=== PATIENT | female | born 1955 | race Caucasian/White ===

== ENCOUNTER → 2016-05-29 | Day surgery (SDC) | payer OTHER ==
[~2016-05-29] VITALS: Ht 160 cm; Wt 84.4 kg
[~2016-05-29] MED LIST: ALBU17IN INH; ALBU83IN INH; ALBUTEROL SULFATE 2.5 MG/0.5 ML INH NEB SOLN As Ordered ONE; CIPR500T3 PO; CLON0.5T PO; CLON1TAB PO; COMBAER6 INH; CONRAY-60 60% 50ML VIAL (Q9961) XX ONE; CYCL10TA PO; CYCL5TA PO; DICL13PA TD; DRIS50002 PO; HYDR-3713 PO; HYDR1SOL PO; INVE3TAB PO; IPRASOL4 IN; LEVO125T3 PO; LIDO4CRE2 EX; LIDOCAINE 2% INJ 100 MG/5 ML SDV (FOR ANES.) As Ordered ONE; LR 1,000 ML IV SCH; METOCLOPRAMIDE INJ 10MG/2ML VIAL (J2765) IV PRN; MIDAZOLAM INJ 2 MG/2 ML VIAL (J2250) As Ordered ONE; MIRT30TA3 PO; NORCOTAB PO; ONDANSETRON 4MG/2ML VIAL (J2405) As Ordered ONE; ONDANSETRON 4MG/2ML VIAL (J2405) IV PRN; PANT40TA2 PO; PERC5TAB6 PO; PERCOCET 5MG/325MG TAB As Ordered ONE; PERCOCET PO; PRIL40CA PO; PROPOFOL 200 MG/20 ML VIAL As Ordered ONE; SERO200T PO; TOPA200T6 PO; VITA100037 PO; ZANA4TAB PO; dexameTHASONE 4 MG/ML 1ML VIAL (J1100) As Ordered ONE; ePHEDrine SULFATE 25 MG/5 ML(5MG/ML) SYRINGE As Ordered ONE; fentaNYL 100 MCG/2 ML INJECTION (J3010) As Ordered ONE; fentaNYL 100 MCG/2 ML INJECTION (J3010) IV PRN; fentaNYL 250 MCG/5 ML INJECTION (J3010) As Ordered ONE
--- NOTE | 2016-05-29 12:30 | REP ---
RIGHT RETROGRADE PYELOGRAM: 05/29/2016 INDICATION: Renal stone. COMPARISON: CT abdomen and pelvis 02/22/2016 FINDINGS: There is a right ureteral stent which appears in satisfactory position , yet the inferior aspect of the stent is partially excluded from view. There are no visualized filling defects seen along the stent through the mid pelvic level. Theinferior pelvic area is omitted from view. 37 second C-arm fluoroscopy time was provided to Dr. Paredes of the Department of Urology who performed the study. One image is recorded and is available for review on the PACS. PHILLIP
[2016-05-29] MEDS: PERCOCET 5MG/325MG TAB PO PRN ×2 (12:40→13:03)
[2016-05-29 13:51] VITALS: BP 132/72
--- NOTE | 2016-05-30 08:47 | RO ---
DATE OF PROCEDURE: 05/29/2016 PREOPERATIVE DIAGNOSIS: Right kidney stone. POSTOPERATIVE DIAGNOSIS: Right kidney stone. SURGERY PERFORMED: Cystoscopy, plus right retrograde pyelogram, plus right ureteroscopy, plus laser stone lithotripsy, plus basket extraction of stones, plus right JJ-stent placement #6 Tajik Coleman Cook. SURGEON: Dr. Manuel Paredes ADULT LITERACY TEACHER: None. ANESTHESIA: General. COMPLICATIONS: None. ESTIMATED BLOOD LOSS: N/A. HISTORY OF PRESENT ILLNESS: This is a 60-year-old female patient with a right kidney stone 9 mm in diameter in the lower pole of the kidney having pain. For this reason, the patient has consented for a cystoscopy, plus possible right retrograde pyelogram, plus possible right ureteroscopy, plus laser stone lithotripsy, plus basket extraction of stones, plus right JJ-stent placement. The patient has signed the consent form. PROCEDURE DESCRIPTION: In a patient under general anesthesia in supine modified low lithotomy position after prepping and draping the area of concern, which included the entire genitalia and abdomen, we started by introducing a cystoscope, #21 Tajik with a 30 degree lens. The bladder was intact. There were no stones, no foreign objects, no tumors in the bladder. Both ureteral orifices were seen excreting clear urine. We then catheterized the right ureteral orifice with a 5 Tajik Pollack catheter. Then, the retrograde pyelogram. There was a 9 mm stone in the lower pole of the kidney. We then passed a Sensor guidewire up to the kidney and removed the Pollack catheter out. We then proceeded to actively remove the cystoscope and place a parallel ureteral access sheath 12 Tajik x 38 cm in length up to the proximal ureter. We then removed the obturator from inside the ureteral access sheath. We then passed a flexible ureteroscope into the ureteral access sheath up to the kidney. We did a formal nephroscopy with the flexible ureteroscope - upper pole, mid pole and lower pole. The lower pole of the kidney had a 9 mm stone. With the 200 micron probe, we actively laser lithotripsied the stone into multiple pieces. We then grabbed the basket and we then basketed the stones and removed it out of the body of the patient. We then proceeded to actively do a formal nephroscopy. There were no stones remaining in the kidney. We then removed the ureteroscope and ureteral access sheath and did a formal retrograde ureteroscopy. There were no stones in the ureter. At that moment in time, we placed the cystoscope back in and following the safety guidewire we pushed in a right JJ stent #6 Tajik Coleman Cook. Once in good position, we took the guidewire out. We could see the curl in the kidney and the curl in the bladder. We shot x-rays. We emptied the bladder and took the cystoscope out. PLAN: The patient will go home with antibiotic and pain medication. The stones were sent for biochemical analysis. The patient will followup at [facility] in two weeks. There were no complications during surgery.
== END | disposition home or self-care (01) ==
LOC: M SDC 08:52
PROVIDERS: ATTEND Urology
DX: N20.0 Calculus of kidney (principal); E03.9 Hypothyroidism, unspecified; R29.898 Other symptoms and signs involving the musculoskeletal system; K21.9 Gastro-esophageal reflux disease without esophagitis; G89.29 Other chronic pain; M54.5 Low back pain; M79.605 Pain in left leg; M53.3 Sacrococcygeal disorders, not elsewhere classified; F25.9 Schizoaffective disorder, unspecified; M12.9 Arthropathy, unspecified; J44.9 Chronic obstructive pulmonary disease, unspecified; Z88.1 Allergy status to other antibiotic agents; Z88.6 Allergy status to analgesic agent; Z88.8 Allergy status to other drugs, medicaments and biological substances; Z79.899 Other long term (current) drug therapy; Z90.710 Acquired absence of both cervix and uterus; Z96.1 Presence of intraocular lens; Z92.0 Personal history of contraception
CPT/HCPCS: 52352; 52356; 74420; 82360; 88300; C1726; C2617; J0690; J1100; J2250; J2405; J3010; Q9961

== ENCOUNTER 2016-06-03 19:05 | Emergency (ER) | payer OTHER ==
[~2016-06-03 19:05] MED LIST changes: -ALBUTEROL SULFATE 2.5 MG/0.5 ML INH NEB SOLN As Ordered ONE; -CONRAY-60 60% 50ML VIAL (Q9961) XX ONE; -LIDOCAINE 2% INJ 100 MG/5 ML SDV (FOR ANES.) As Ordered ONE; -LR 1,000 ML IV SCH; -METOCLOPRAMIDE INJ 10MG/2ML VIAL (J2765) IV PRN; -MIDAZOLAM INJ 2 MG/2 ML VIAL (J2250) As Ordered ONE; -ONDANSETRON 4MG/2ML VIAL (J2405) As Ordered ONE; -ONDANSETRON 4MG/2ML VIAL (J2405) IV PRN; -PERCOCET 5MG/325MG TAB As Ordered ONE; -PROPOFOL 200 MG/20 ML VIAL As Ordered ONE; -dexameTHASONE 4 MG/ML 1ML VIAL (J1100) As Ordered ONE; -ePHEDrine SULFATE 25 MG/5 ML(5MG/ML) SYRINGE As Ordered ONE; -fentaNYL 100 MCG/2 ML INJECTION (J3010) As Ordered ONE; -fentaNYL 100 MCG/2 ML INJECTION (J3010) IV PRN; -fentaNYL 250 MCG/5 ML INJECTION (J3010) As Ordered ONE
[2016-06-03] MEDS ORDERED: ONDANSETRON 4MG/2ML VIAL (J2405) As Ordered ONE (20:36)
[2016-06-03] MEDS ORDERED: MORPHINE 4 MG/ML 1ML SYRINGE As Ordered ONE (20:36)
[2016-06-03 21:02] LABS: BASO # 0.1 K/mm3 (0.0-0.2); BASO % 1.3 % (0.0-1.0); EOS # 0.2 K/mm3 (0.0-0.50); EOS % 1.5 % (0.0-3.0); LARGE UNSTAINED CELL # 0.2 K/mm3 (0.0-0.4); LARGE UNSTAINED CELL % 1.7 % (0.0-4.0); LYMPH % 10.5 % (24.0-44.0); MEAN CORPUSCULAR HEMOGLOBIN 30.2 pg (27.0-33.0); MEAN CORPUSCULAR VOLUME 94.6 fl (80.0-96.0); PLATELET COUNT, AUTOMATED 191 k/mm3 (150-450); RED CELL DISTRIBUTION WIDTH 13.8 % (11.5-14.5); WHITE BLOOD COUNT 10.1 K/mm3 (4.0-10.0)
[2016-06-03 21:03] LABS: LYMPH # 1.1 K/mm3 (1.5-4.5); MONO # 0.5 K/mm3 (0.0-0.8); NEUTROPHILS # 8.1 K/mm3 (1.8-7.7)
[2016-06-03 21:16] LABS: ALBUMIN 3.6 GM/DL (3.2-5.2); ALBUMIN/GLOBULIN RATIO 0.86 (1.00-1.93); ALKALINE PHOSPHATASE 135 U/L (45-117); ALT/SGPT 69 U/L (12-78); ANION GAP 9 MEQ/L (8-16); AST/SGOT 45 U/L (15-37); BILIRUBIN,DIRECT 0.1 MG/DL (0.0-0.2); BILIRUBIN,TOTAL 0.3 MG/DL (0.2-1.0); BLOOD UREA NITROGEN 10 MG/DL (7-18); CALCIUM LEVEL 8.4 MG/DL (8.5-10.1); CARBON DIOXIDE LEVEL 21 MEQ/L (21-32); CHLORIDE LEVEL 109 MEQ/L (98-107); GLOMERULAR FILTRATION RATE 44.8 (>51); GLUCOSE, FASTING 112 MG/DL (70-105); POTASSIUM SERUM 3.4 MEQ/L (3.5-5.1); SODIUM LEVEL 139 MEQ/L (136-145); TOTAL PROTEIN 7.8 GM/DL (6.4-8.2)
--- NOTE | 2016-06-03 21:40 | REPUSA ---
CT of the abdomen and pelvis without contrast Clinical statement: Pain. Technique: Multiple axial CT images were obtained from the base of the lungs to the floor of the pelv is utilizing 5 mm axial slices without administration of contrast. Coronal and sagittal reconstructio ns were also obtained. Comparison: 02/22/2016. Findings: Chest: The visualized lung bases are clear. Abdomen: The kidneys are normal in size bilaterally. There is moderate right-sided hydronephrosis and hydroureter with perineprhic and periureteral inflammatory changes. A tiny 1 mm stone is seen in the distal right ureter. The 1 cm stone seen in the right renal collecting system on the prior study is no longer visualized. The left renal collecting system is unremarkable. Diffuse low attenuation of th e liver is appreciated. The patient is status post cholecystectomy. The spleen, pancreas, and adrenal glands are unremarkable. The aorta demonstrates normal caliber and contour. There is no abdominal ly mphadenopathy or ascites. Pelvis: The bowel is unremarkable, with no obstructive or inflammatory changes. The urinary bladder i s within normal limits. There is no pelvic lymphadenopathy or ascites. The other pelvic structures ap pear unremarkable. Bones: There are no suspicious osseous abnormalities seen. Impression: 1. New moderate right-sided hydronephrosis and hydroureter with surrounding inflammatory stranding. A 1 mm stone is seen in the distal right ureter. The 1 cm kidney stone seen in the right renal collect ing system on the prior study is no longer visualized in likely has passed. 2. Diffuse fatty infiltration of the liver. 3. No obstructive or inflammatory bowel changes.
[2016-06-03] MEDS ORDERED: NORCO 5/325MG TABLET (BULK) As Ordered ONE (22:59)
--- NOTE | 2016-06-03 23:14 | EDDOCDS ---
Nurse's Notes [facility] Name: Gabbi Guzman Age: 60 yrs Sex: Female : 1955 Arrival Date: 06/03/2016 Time: 19:05 Bed 12 Private MD: Lizzy Rodney C Diagnosis: Unspecified renal colic-s/p stent removal;Hydronephrosis with renal and ureteral calculous obstruction-1mm calc, distal right ureter Presentation: 06/03 19:27 Presenting complaint: EMS states: Pt had stent placed right kidney and had a js15 simultaneous lithotripsy; stent was removed today and pt has had abdominal/kidney pain and vomiting since. Adult Sepsis Screening: The patient does not have new or worsening altered mentation. Patient's respiratory rate is less than 22. Systolic blood pressure is greater than 100. Patient has a qSOFA score of 0- Negative Sepsis Screen. Suicide/Homicide risk assessment- the patient denies having any suicidal and/or homicidal ideations and does not present with any other emotional, behavioral or mental health complaints. Status: Patient is not a service observer chief or dependent. Transition of care: patient was not received from another setting of care. 19:27 Acuity: CHICO Level 3 js15 19:27 Method Of Arrival: Ambulance js15 Triage Assessment: 19:33 General: Appears uncomfortable, Behavior is cooperative. Pain: Location: right low back js15 and right lower quadrant Pain currently is 10 out of 10 on a pain scale. HIV screening NA for this visit Offered previously. The patient is triaged at the bedside. See Assessment in Nurses Notes section of ED record. Neurological: Level of Consciousness is awake, alert, obeys commands, Oriented to person, place, time. Respiratory: Airway is patent Respiratory effort is even, unlabored, Respiratory pattern is regular, symmetrical. GI: Reports nausea, vomiting, Pain is 10 out of 10 on a pain scale. Derm: Skin is pink, warm & dry. Historical: - Allergies: Motrin (Upset stomach); Risperdal (Swelling); TETRACYCLINES (Rash); Tramadol HCl; - Home Meds: 1. Topamax 200 mg Oral tab 1 tab nightly 2. Remeron 30 mg Oral tab 1 tab once daily 3. levothyroxine 125 mcg Oral tab 1 tab once daily 4. Klonopin 1 mg Oral tab 1 tab 2 times per day 5. Ventolin Rotahaler/Rotacaps Inhl 6. Protonix 40 mg Oral TbEC 1 tab once daily 7. Vitamin D Oral 1,000 unit daily 8. Seroquel 400 mg Oral tab 1 tab nightly 9. Combivent Inhl four times a day 10. Percocet 5-325 mg Oral tab 2 tabs every 4 hours 11. Flexeril 10 mg oral tab 3 times per day - PMHx: Degenerative disc disease; Anxiety; Depression; GERD; Hypothyroidism; muscle spasms; Schizophrenia; Sciatica; Kidney stones; - PSHx: Shoulder Arthroplasty, Left; stomach surgery for reflux disease; Cholecystectomy; Hysterectomy; Hernia repair- Umbilical; left foot surgery; right kidney stent; Lithotripsy; - Social history: Smoking status: Patient uses tobacco products, light tobacco smoker. No barriers to communication noted, The patient speaks fluent [place], Speaks appropriately for age. - Family history: Not pertinent. - : The pt / caregiver states he / she is not on anticoagulants. Home medication list is obtained from the patient, [employer] import data, a discharge med list. - Exposure Risk Screening:: None identified. Screenin:00 Screening information is obtained from the patient. Fall risk: No risks identified. js15 Assistance ADL's: requires no assistance with activities of daily living. Abuse/DV Screen: The patient / caregiver reports he/she is: not in a situation that causes fear, pain or injury. Nutritional screening: No deficits noted. Advance Directives: There is no active DNR order. home support is adequate. Assessment: 19:40 General: see triage note. js15 20:40 Reassessment: Patient appears in no apparent distress at this time. Neurological: Level js15 of Consciousness is awake, alert, obeys commands, Oriented to person, place, time. Cardiovascular: Rhythm is regular. Respiratory: Airway is patent Respiratory effort is even, unlabored, Respiratory pattern is regular, symmetrical, Breath sounds are clear bilaterally. GI: Abdomen is non- distended Bowel sounds present X 4 quads. Abd is soft X 4 quads. Derm: Skin is pink, warm & dry. 21:41 Reassessment: Patient appears in no apparent distress at this time. Patient states js15 feeling better. Patient states symptoms have improved. Pt resting comfortably on stretcher, reports marked relief of pain (scale 1/10). Respirations even and unlabored; skin pink, warm, dry. 23:00 General: Appears in no apparent distress, comfortable, Behavior is appropriate for age, js15 cooperative. Pain: Denies pain. Neurological: Level of Consciousness is awake, alert, obeys commands, Oriented to person, place, time. Respiratory: Airway is patent Respiratory effort is even, unlabored, Respiratory pattern is regular, symmetrical. Derm: Skin is pink, warm & dry. Vital Signs: 19:33 BP 126 / 67; Pulse 76; Resp 18; Pulse Ox 95% on R/A; Weight 84.37 kg; Height 5 ft. 3 js15 in. (160.02 cm); Pain 10/10; 20:10 Temp 96.9(O); js15 20:24 Pulse 84 MON; Pulse Ox 94% ; js15 20:25 BP 153 / 82 (auto/); js15 20:38 Pulse 84 MON; Pulse Ox 95% ; js15 20:44 BP 165 / 87 (auto/); js15 20:55 BP 153 / 77 (auto/); js15 20:55 Pulse 80 MON; Pulse Ox 96% ; js15 21:10 BP 160 / 86 (auto/); js15 21:10 Pulse 82 MON; Pulse Ox 97% ; js15 21:25 BP 144 / 86 (auto/); js15 21:25 Pulse 80 MON; Pulse Ox 95% ; js15 21:30 Pain 1/10; js15 22:51 BP 136 / 77; Pulse 82; Resp 18; Temp 96.1(O); Pulse Ox 97% on R/A; sudhir 19:33 Body Mass Index 32.95 (84.37 kg, 160.02 cm) [facility] Vitals: 19:33 Log In Time N/A - ambulance arrival. [facility] ED Course: 19:06 Patient visited by Renate Elizondo PCA. tmm1 19:06 Patient moved to Waiting tmm1 19:07 Lizzy Rodney is Private Physician. tmm1 19:07 Amara Ochoa,RN is Primary Nurse. tmm1 19:07 Patient moved to 12 tmm1 19:22 [facility] le 19:29 Triage Initiated js15 19:52 Patient visited by Ijeoma Ayala FNP. le 19:52 Patient visited by Ijeoma Ayala FNP. le 20:25 Inserted saline lock: 22 gauge in right hand. No procedures done that require js15 assistance. 20:31 Lactic Acid (Montero tube on ice) Sent. js15 20:31 Basic Metabolic Profile Sent. js15 20:31 CBC with Diff Sent. js15 20:31 Cardiac Injury Profile Sent. js15 20:31 Lipase Sent. js15 20:31 Liver Profile Sent. js15 20:32 Troponin Sent. js15 20:55 Patient visited by Janet Greene RN. js15 20:55 Urinalysis Sent. js15 21:00 The patient / caregiver is instructed regarding the plan of care and ED course. js15 21:45 Primary Nurse role handed off by Amara Ochoa RN sudhir 21:51 [facility] Payment Agreement was scanned into [employer] and attached to record. zo 22:11 CT ABD & PELVIS: No Contrast Returned. EDMS 22:31 Assisted to bathroom. sudhir 22:32 Patient visited by Flower Flores, KAMRON. sudhir 22:45 Manuel Paredes is Referral Physician. le 22:51 Patient visited by Flower Flores, TILE SORTER. sudhir 23:13 Discontinued IV lock intact, bleeding controlled, pressure dressing applied, No js15 redness/swelling at site. Administered Medications: 20:50 Drug: NS 0.9% 1000 ml [sodium chloride 0.9 % intravenous solution] Route: IV; Rate: 100 js15 mL/hr; Site: right hand; 20:50 Drug: morphine 4 mg [morphine 4 mg/mL intravenous cartridge (1 mL)] Route: IVP; Site: js15 right hand; 21:30 Follow up: Pain / Adult; Response: Pain is decreased js15 20:50 Drug: Ondansetron 4 mg [ondansetron HCl 2 mg/mL intravenous solution (2 mL)] Route: js15 IVP; Site: right hand; 23:09 Drug: HYDROcodone-acetaminophen 4 pack- 1 packets [hydrocodone 5 mg-acetaminophen 325 js15 mg tablet (1 tabs)] {Co-Signature: kas2 (Ashlyn Vega RN).} Route: PO; Order Results: Lab Order: Basic Metabolic Profile; SPEC'M 06/03/16 20:27 Test: GLUCOSE, FASTING; Value: 112; Range: 70-105; Abnormal: Above high normal; Units: MG/DL; Status: F Test: BLOOD UREA NITROGEN; Value: 10; Range: 7-18; Units: MG/DL; Status: F Test: CREATININE FOR GFR; Value: 1.30; Range: 0.55-1.02; Abnormal: Above high normal; Units: MG/DL; Status: F Test: GLOMERULAR FILTRATION RATE; Value: 44.8; Range: >51; Abnormal: Below low normal; Status: F Test: SODIUM LEVEL; Value: 139; Range: 136-145; Units: MEQ/L; Status: F Test: POTASSIUM SERUM; Value: 3.4; Range: 3.5-5.1; Abnormal: Below low normal; Units: MEQ/L; Status: F Test: CHLORIDE LEVEL; Value: 109; Range: 98-107; Abnormal: Above high normal; Units: MEQ/L; Status: F Test: CARBON DIOXIDE LEVEL; Value: 21; Range: 21-32; Units: MEQ/L; Status: F Test: ANION GAP; Value: 9; Range: 8-16; Units: MEQ/L; Status: F Test: CALCIUM LEVEL; Value: 8.4; Range: 8.5-10.1; Abnormal: Below low normal; Units: MG/DL; Status: F Test Note: ; Units are mL/min/1.73 m2 Chronic Kidney Disease Staging per NKF: Stage I & II GFR >=60 Normal to Mildly Decreased Stage III GFR 30-59 Moderately Decreased Stage IV GFR 15-29 Severely Decreased Stage V GFR <15 Very Little GFR Left ESRD GFR <15 on PROOF TECHNICIAN HELPER Lab Order: CBC with Diff; SPEC'M 06/03/16 20:27 Test: WHITE BLOOD COUNT; Value: 10.1; Range: 4.0-10.0; Abnormal: Above high normal; Units: K/mm3; Status: F Test: RED BLOOD COUNT; Value: 4.88; Range: 4.00-5.40; Units: M/mm3; Status: F Test: HEMOGLOBIN; Value: 14.8; Range: 12.0-16.0; Units: g/dl; Status: F Test: HEMATOCRIT; Value: 46.2; Range: 36.0-47.0; Units: %; Status: F Test: MEAN CORPUSCULAR VOLUME; Value: 94.6; Range: 80.0-96.0; Units: fl; Status: F Test: MEAN CORPUSCULAR HEMOGLOBIN; Value: 30.2; Range: 27.0-33.0; Units: pg; Status: F Test: MEAN CORPUSCULAR HGB CONC; Value: 32.0; Range: 32.0-36.5; Units: g/dl; Status: F Test: RED CELL DISTRIBUTION WIDTH; Value: 13.8; Range: 11.5-14.5; Units: %; Status: F Test: PLATELET COUNT, AUTOMATED; Value: 191; Range: 150-450; Units: k/mm3; Status: F Test: NEUTROPHILS %; Value: 80.0; Range: 36.0-66.0; Abnormal: Above high normal; Units: %; Status: F Test: LYMPH %; Value: 10.5; Range: 24.0-44.0; Abnormal: Below low normal; Units: %; Status: F Test: MONO %; Value: 5.0; Range: 0.0-5.0; Units: %; Status: F Test: EOS %; Value: 1.5; Range: 0.0-3.0; Units: %; Status: F Test: BASO %; Value: 1.3; Range: 0.0-1.0; Abnormal: Above high normal; Units: %; Status: F Test: LARGE UNSTAINED CELL %; Value: 1.7; Range: 0.0-4.0; Units: %; Status: F Test: NEUTROPHILS #; Value: 8.1; Range: 1.8-7.7; Abnormal: Above high normal; Units: K/mm3; Status: F Test: LYMPH #; Value: 1.1; Range: 1.5-4.5; Abnormal: Below low normal; Units: K/mm3; Status: F Test: MONO #; Value: 0.5; Range: 0.0-0.8; Units: K/mm3; Status: F Test: EOS #; Value: 0.2; Range: 0.0-0.50; Units: K/mm3; Status: F Test: BASO #; Value: 0.1; Range: 0.0-0.2; Units: K/mm3; Status: F Test: LARGE UNSTAINED CELL #; Value: 0.2; Range: 0.0-0.4; Units: K/mm3; Status: F Lab Order: Cardiac Injury Profile; [facility] 06/03/16: Test: CPK CREATINE PHOSPHOKINASE; Value: 55; Range: 26-192; Units: U/L; Status: F Test: CK-MB VALUE MASS; Value: 1.2; Range: 0.0-3.6; Units: NG/ML; Status: F Test: MB/CK RELATIVE INDEX; Value: 2.18; Range: < OR =4; Status: F Test Note: ; DIAGNOSIS CRITERIA MMB ng/ml Relative Index (RI) NON-AMI < or = 5 N/A MONTERO ZONE > 5 < or = 4 AMI > 5 > 4 Lab Order: Lipase; [facility] 06/03/16: Test: LIPASE; Value: 113; Range: 73-393; Units: U/L; Status: F Lab Order: Liver Profile; [facility] 06/03/16: Test: AST/SGOT; Value: 45; Range: 15-37; Abnormal: Above high normal; Units: U/L; Status: F Test: ALT/SGPT; Value: 69; Range: 12-78; Units: U/L; Status: F Test: ALKALINE PHOSPHATASE; Value: 135; Range: 45-117; Abnormal: Above high normal; Units: U/L; Status: F Test: BILIRUBIN,TOTAL; Value: 0.3; Range: 0.2-1.0; Units: MG/DL; Status: F Test: BILIRUBIN,DIRECT; Value: 0.1; Range: 0.0-0.2; Units: MG/DL; Status: F Test: TOTAL PROTEIN; Value: 7.8; Range: 6.4-8.2; Units: GM/DL; Status: F Test: ALBUMIN; Value: 3.6; Range: 3.2-5.2; Units: GM/DL; Status: F Test: ALBUMIN/GLOBULIN RATIO; Value: 0.86; Range: 1.00-1.93; Abnormal: Below low normal; Status: F Lab Order: Troponin; [facility] 06/03/16 20:27 Test: TROPONIN I; Value: < 0.02; Range: < 0.10; Units: NG/ML; Status: F Test Note: ; Troponin I Reference Interval for Siemens Murdock LOCI: 99th Percentile= 0.00-0.045 ng/ml Risk Stratification: <= 0.10 ng/ml Decreased Risk for Adverse Clinical Events. 0.10-1.50 ng/ml Increased Risk for Adverse Clinical Events. Evaluation of additional criterion and/or repeat testing in 2-6 hours is suggested to rule out myocardial damage. >= 1.50 ng/ml Indicative of Myocardial Injury. Lab Order: Urinalysis; SPEC'M 06/03/16 20:49 Test: APPEARANCE, URINE; Value: HAZY; Range: CLEAR; Status: F Test: COLOR, URINE; Value: YELLOW; Range: YELLOW; Status: F Test: PH,URINE; Value: 6.0; Range: 5.0-9.0; Units: UNITS; Status: F Test: SPECIFIC GRAVITY URINE AUTO; Value: 1.017; Range: 1.002-1.035; Status: F Test: PROTEIN, URINE AUTO; Value: 3+; Range: NEGATIVE; Abnormal: Above high normal; Units: mg/dL; Status: F Test: GLUCOSE, URINE (UA) AUTO; Value: NEGATIVE; Range: NEGATIVE; Units: mg/dL; Status: F Test: KETONE, URINE AUTO; Value: NEGATIVE; Range: NEGATIVE; Units: mg/dL; Status: F Test: UROBILINOGEN, URINE AUTO; Value: 0.2; Range: 0.0-2.0; Units: mg/dL; Status: F Test: BILIRUBIN, URINE AUTO; Value: NEGATIVE; Range: NEGATIVE; Status: F Test: NITRITE, URINE AUTO; Value: NEGATIVE; Range: NEGATIVE; Status: F Test: LEUKOCYTE ESTERASE, URINE AUTO; Value: 2+; Range: NEGATIVE; Abnormal: Above high normal; Status: F Test: BLOOD, URINE BLOOD; Value: 2+; Range: NEGATIVE; Abnormal: Above high normal; Status: F Test: WBC, URINE AUTO; Value: 114; Range: 0-3; Abnormal: Above high normal; Units: /HPF; Status: F Test: RBC, URINE AUTO; Value: TNTC; Range: 0-3; Abnormal: Above high normal; Units: /HPF; Status: F Test: BACTERIA, URINE AUTO; Value: NEGATIVE; Range: NEGATIVE; Status: F Test: SQUAMOUS EPITHELIAL CELL UR AU; Value: 4; Range: 0-6; Units: /HPF; Status: F Test: MUCUS, URINE; Value: SMALL; Range: NEGATIVE; Status: F Test: HYALINE CAST, URINE AUTO; Value: 3; Range: 0-1; Units: /LPF; Status: F Test: AMORPHOUS SEDIMENT; Value: SMALL; Range: NEGATIVE; Abnormal: Above high normal; Status: F Lab Order: Lactic Acid (Montero tube on ice); SPEC'M 06/03/16 20:27 Test: LACTIC ACID LEVEL, LACTATE; Value: 1.4; Range: 0.4-2.0; Units: MMOL/L; Status: F Radiology Order: CT ABD & PELVIS: No Contrast Test: CT ABD & PELVIS: No Contrast REASON FOR EXAMINATION: recent stent/lithotripy, fever, pain; ; CT of the abdomen and pelvis without contrast; Clinical statement: Pain.; Technique: Multiple axial CT images were obtained from the base of the lungs to the floor of the pelv; is utilizing 5 mm axial slices without administration of contrast. Coronal and sagittal reconstructio; ns were also obtained.; Comparison: 02/22/2016.; Findings:; Chest: The visualized lung bases are clear.; Abdomen: The kidneys are normal in size bilaterally. There is moderate right-sided hydronephrosis and; hydroureter with perineprhic and periureteral inflammatory changes. A tiny 1 mm stone is seen in the; distal right ureter. The 1 cm stone seen in the right renal collecting system on the prior study is; no longer visualized. The left renal collecting system is unremarkable. Diffuse low attenuation of th; e liver is appreciated. The patient is status post cholecystectomy. The spleen, pancreas, and adrenal; glands are unremarkable. The aorta demonstrates normal caliber and contour. There is no abdominal ly; mphadenopathy or ascites.; Pelvis: The bowel is unremarkable, with no obstructive or inflammatory changes. The urinary bladder i; s within normal limits. There is no pelvic lymphadenopathy or ascites. The other pelvic structures ap; pear unremarkable.; Bones: There are no suspicious osseous abnormalities seen.; Impression:; 1. New moderate right-sided hydronephrosis and hydroureter with surrounding inflammatory stranding. A; 1 mm stone is seen in the distal right ureter. The 1 cm kidney stone seen in the right renal collect; ing system on the prior study is no longer visualized in likely has passed.; 2. Diffuse fatty infiltration of the liver.; 3. No obstructive or inflammatory bowel changes.; ; Outcome: 22:45 Discharge ordered by Provider. le 23:13 Discharge Assessment: Patient awake, alert and oriented x 3. No cognitive and/or js15 functional deficits noted. Patient verbalized understanding of disposition instructions. patient administered narcotics - yes. Pt provided with safe discharge. The following High Risk Discharge criteria are identified: None. Discharged to home ambulatory. Condition: stable Condition: improved. Discharge instructions given to patient, Instructed on discharge instructions, follow up and referral plans. medication usage, no driving heavy equipment, Demonstrated understanding of instructions, medications, Pt was receptive of discharge instructions/ teaching. Prescriptions given X 2. CT Study completed. Property sent home with patient. 23:13 Patient left the ED. js15 Signatures: Dispatcher [employer] EDMS Oliva Mcghee Lisa, SECURITY DEVELOPER SECURITY DEVELOPER Flower Polo, TILE SORTER TILE SORTER sudhir Renate Elizondo, TILE SORTER TILE SORTER tmm1 Janet Greene,RN RN js15 Ashlyn Vega RN kas2 MTDD
--- NOTE | 2016-06-03 23:14 | EDDOCDS ---
Physician Documentation [facility] Name: Gabbi Guzman Age: 60 yrs Sex: Female : 1955 Arrival Date: 06/03/2016 Time: 19:05 Bed 12 Private MD: Lizzy Rodney C Disposition: 06/03 22:47 Critical Care: Critical care not applicable. le Disposition: 06/03/16 22:45 Discharged to Home/Self Care. Impression: Unspecified renal colic - s/p stent removal, Hydronephrosis with renal and ureteral calculous obstruction - 1mm calc, distal right ureter. - Condition is Stable. - Discharge Instructions: Kidney Stones, Ureteral Colic. - Prescriptions for [place] 5- 325 mg Oral Tablet - take 1 tablet by ORAL route every 6 hours As needed MDD: 4 tabs; 6 tablet. ZOFRAN ODT 4 mg - dissolve 1 tablet by ORAL route 4 times per day As needed do not chew, do not swallow whole; 10 tablet. - Medication Reconciliation, Local Pharmacy Hours form. - Follow up: Manuel Paredes; When: Call to arrange an appointment; Reason: Recheck today's complaints, Continuance of care. - Problem is an acute exacerbation. - Symptoms have improved. - Notes: Keep hydrated Return to the ED for any further concerns Historical: - Allergies: Motrin (Upset stomach); Risperdal (Swelling); TETRACYCLINES (Rash); Tramadol HCl; - Home Meds: 1. Topamax 200 mg Oral tab 1 tab nightly 2. Remeron 30 mg Oral tab 1 tab once daily 3. levothyroxine 125 mcg Oral tab 1 tab once daily 4. Klonopin 1 mg Oral tab 1 tab 2 times per day 5. Ventolin Rotahaler/Rotacaps Inhl 6. Protonix 40 mg Oral TbEC 1 tab once daily 7. Vitamin D Oral 1,000 unit daily 8. Seroquel 400 mg Oral tab 1 tab nightly 9. Combivent Inhl four times a day 10. Percocet 5-325 mg Oral tab 2 tabs every 4 hours 11. Flexeril 10 mg oral tab 3 times per day - PMHx: Degenerative disc disease; Anxiety; Depression; GERD; Hypothyroidism; muscle spasms; Schizophrenia; Sciatica; Kidney stones; - PSHx: Shoulder Arthroplasty, Left; stomach surgery for reflux disease; Cholecystectomy; Hysterectomy; Hernia repair- Umbilical; left foot surgery; right kidney stent; Lithotripsy; - Social history: Smoking status: Patient uses tobacco products, light tobacco smoker. No barriers to communication noted, The patient speaks fluent Telugu, Speaks appropriately for age. - Family history: Not pertinent. - : The pt / caregiver states he / she is not on anticoagulants. Home medication list is obtained from the patient, [employer] import data, a discharge med list. - Exposure Risk Screening:: None identified. Vital Signs: 19:33 BP 126 / 67; Pulse 76; Resp 18; Pulse Ox 95% on R/A; Weight 84.37 kg / 186 lbs; Height js15 5 ft. 3 in. (160.02 cm); Pain 10/10; 20:10 Temp 96.9(O); js15 20:24 Pulse 84 MON; Pulse Ox 94% ; js15 20:25 BP 153 / 82 (auto/); js15 20:38 Pulse 84 MON; Pulse Ox 95% ; js15 20:44 BP 165 / 87 (auto/); js15 20:55 BP 153 / 77 (auto/); js15 20:55 Pulse 80 MON; Pulse Ox 96% ; js15 21:10 BP 160 / 86 (auto/); js15 21:10 Pulse 82 MON; Pulse Ox 97% ; js15 21:25 BP 144 / 86 (auto/); js15 21:25 Pulse 80 MON; Pulse Ox 95% ; js15 21:30 Pain 1/10; js15 22:51 BP 136 / 77; Pulse 82; Resp 18; Temp 96.1(O); Pulse Ox 97% on R/A; sudhir 19:33 Body Mass Index 32.95 (84.37 kg, 160.02 cm) js15 MDM: 19:24 NS 0.9% 1000 ml IV at 100 mL/hr continuous ordered. le 19:24 IV Saline Lock ordered. le 19:24 Undress patient appropriately for examination ordered. le 19:24 Basic Metabolic Profile Ordered. EDMS 19:24 CBC with Diff Ordered. EDMS 19:24 Cardiac Injury Profile Ordered. EDMS 19:24 Lipase Ordered. EDMS 19:24 Liver Profile Ordered. EDMS 19:24 Troponin Ordered. EDMS 19:25 Urinalysis Ordered. EDMS 19:26 Abdomen, Flat\E\Upright,PA Chest Ordered. EDMS 19:26 NOTHING BY MOUTH+DIET ordered. EDMS 19:48 Repeat Temperature - Oral: Inform provider of result ordered. le 19:55 Lactic Acid (Montero tube on ice) Ordered. EDMS 19:55 CT ABD & PELVIS: No Contrast Ordered. EDMS 20:17 morphine 4 mg IVP every 15 minutes; Document pain score/vitals after each dose (Hold if le SBP < 90mmHg) x2 ordered. 20:17 Ondansetron 4 mg IVP once ordered. le 21:43 Basic Metabolic Profile Reviewed. le 21:43 CBC with Diff Reviewed. le 21:43 Liver Profile Reviewed. le 21:43 Urinalysis Reviewed. le 21:43 Cardiac Injury Profile Reviewed. le 21:43 Lipase Reviewed. le 21:43 Troponin Reviewed. le 21:43 Lactic Acid (Montero tube on ice) Reviewed. le 21:49 Fluid Challenge ordered. le 21:50 Financial registration complete. zo 21:51 [facility] [place] Agreement was scanned into [employer] and attached to record. zo 22:44 HYDROcodone-acetaminophen 4 pack- 5 mg-325 mg 1 packets PO Per package directions; le Dispense with patient. 1 po q4h prn for pain ordered. Administered Medications: 20:50 Drug: NS 0.9% 1000 ml [sodium chloride 0.9 % intravenous solution] Route: IV; Rate: 100 js15 mL/hr; Site: right hand; 20:50 Drug: morphine 4 mg [morphine 4 mg/mL intravenous cartridge (1 mL)] Route: IVP; Site: js15 right hand; 21:30 Follow up: Pain / Adult; Response: Pain is decreased js15 20:50 Drug: Ondansetron 4 mg [ondansetron HCl 2 mg/mL intravenous solution (2 mL)] Route: js15 IVP; Site: right hand; 23:09 Drug: HYDROcodone-acetaminophen 4 pack- 1 packets [hydrocodone 5 mg-acetaminophen 325 js15 mg tablet (1 tabs)] {Co-Signature: [email or web address] (Ashlyn Vega RN).} Route: PO; Signatures: Dispatcher [employer] EDMS Oliva Mcghee Lisa, TUMBLER PLATER TUMBLER PLATER Janet Pires RN RN js15 Ashlyn Vega RN kas2 The chart was reviewed and I authenticate all verbal orders and agree with the evaluation and treatment provided.Corrections: (The following items were deleted from the chart) 20:56 19:54 Mode vasquez ordered. gabe js15 Attachments: 21:51 [facility] Payment Agreement zo MTDD
--- NOTE | 2016-06-04 05:45 | REP ---
ABDOMEN, FLAT AND UPRIGHT; PA CHEST, THREE VIEWS: HISTORY: Abdominal pain. Air is present in small and large intestine. Several air fluid levels are present. There are no dilated loops of intestine. There is no pneumoperitoneum. The lungs are clear. IMPRESSION: Nonspecific bowel gas pattern. Signed by Rm Riojas MD 06/04/2016 08:47 A
--- NOTE | 2016-06-06 00:15 | EDDOCDS ---
Physician Documentation [facility] Name: Gabbi Guzman Age: 60 yrs Sex: Female : 1955 Arrival Date: 06/03/2016 Time: 19:05 Bed 12 Private MD: Lizzy Rodney C Disposition: 06/03 22:47 Critical Care: Critical care not applicable. le Disposition: 06/03/16 22:45 Discharged to Home/Self Care. Impression: Unspecified renal colic - s/p stent removal, Hydronephrosis with renal and ureteral calculous obstruction - 1mm calc, distal right ureter. - Condition is Stable. - Discharge Instructions: Kidney Stones, Ureteral Colic. - Prescriptions for [place] 5- 325 mg Oral Tablet - take 1 tablet by ORAL route every 6 hours As needed MDD: 4 tabs; 6 tablet. ZOFRAN ODT 4 mg - dissolve 1 tablet by ORAL route 4 times per day As needed do not chew, do not swallow whole; 10 tablet. - Medication Reconciliation, Local Pharmacy Hours form. - Follow up: Manuel Paredes; When: Call to arrange an appointment; Reason: Recheck today's complaints, Continuance of care. - Problem is an acute exacerbation. - Symptoms have improved. - Notes: Keep hydrated Return to the ED for any further concerns Historical: - Allergies: Motrin (Upset stomach); Risperdal (Swelling); TETRACYCLINES (Rash); Tramadol HCl; - Home Meds: 1. Topamax 200 mg Oral tab 1 tab nightly 2. Remeron 30 mg Oral tab 1 tab once daily 3. levothyroxine 125 mcg Oral tab 1 tab once daily 4. Klonopin 1 mg Oral tab 1 tab 2 times per day 5. Ventolin Rotahaler/Rotacaps Inhl 6. Protonix 40 mg Oral TbEC 1 tab once daily 7. Vitamin D Oral 1,000 unit daily 8. Seroquel 400 mg Oral tab 1 tab nightly 9. Combivent Inhl four times a day 10. Percocet 5-325 mg Oral tab 2 tabs every 4 hours 11. Flexeril 10 mg oral tab 3 times per day - PMHx: Degenerative disc disease; Anxiety; Depression; GERD; Hypothyroidism; muscle spasms; Schizophrenia; Sciatica; Kidney stones; - PSHx: Shoulder Arthroplasty, Left; stomach surgery for reflux disease; Cholecystectomy; Hysterectomy; Hernia repair- Umbilical; left foot surgery; right kidney stent; Lithotripsy; - Social history: Smoking status: Patient uses tobacco products, light tobacco smoker. No barriers to communication noted, The patient speaks fluent Occitan, Speaks appropriately for age. - Family history: Not pertinent. - : The pt / caregiver states he / she is not on anticoagulants. Home medication list is obtained from the patient, [employer] import data, a discharge med list. - Exposure Risk Screening:: None identified. Vital Signs: 19:33 BP 126 / 67; Pulse 76; Resp 18; Pulse Ox 95% on R/A; Weight 84.37 kg / 186 lbs; Height js15 5 ft. 3 in. (160.02 cm); Pain 10/10; 20:10 Temp 96.9(O); js15 20:24 Pulse 84 MON; Pulse Ox 94% ; js15 20:25 BP 153 / 82 (auto/); js15 20:38 Pulse 84 MON; Pulse Ox 95% ; js15 20:44 BP 165 / 87 (auto/); js15 20:55 BP 153 / 77 (auto/); js15 20:55 Pulse 80 MON; Pulse Ox 96% ; js15 21:10 BP 160 / 86 (auto/); js15 21:10 Pulse 82 MON; Pulse Ox 97% ; js15 21:25 BP 144 / 86 (auto/); js15 21:25 Pulse 80 MON; Pulse Ox 95% ; js15 21:30 Pain 1/10; js15 22:51 BP 136 / 77; Pulse 82; Resp 18; Temp 96.1(O); Pulse Ox 97% on R/A; sudhir 19:33 Body Mass Index 32.95 (84.37 kg, 160.02 cm) js15 MDM: 19:24 NS 0.9% 1000 ml IV at 100 mL/hr continuous ordered. le 19:24 IV Saline Lock ordered. le 19:24 Undress patient appropriately for examination ordered. le 19:24 Basic Metabolic Profile Ordered. EDMS 19:24 CBC with Diff Ordered. EDMS 19:24 Cardiac Injury Profile Ordered. EDMS 19:24 Lipase Ordered. EDMS 19:24 Liver Profile Ordered. EDMS 19:24 Troponin Ordered. EDMS 19:25 Urinalysis Ordered. EDMS 19:26 Abdomen, Flat\E\Upright,PA Chest Ordered. EDMS 19:26 NOTHING BY MOUTH+DIET ordered. EDMS 19:48 Repeat Temperature - Oral: Inform provider of result ordered. le 19:55 Lactic Acid (Montero tube on ice) Ordered. EDMS 19:55 CT ABD & PELVIS: No Contrast Ordered. EDMS 20:17 morphine 4 mg IVP every 15 minutes; Document pain score/vitals after each dose (Hold if le SBP < 90mmHg) x2 ordered. 20:17 Ondansetron 4 mg IVP once ordered. le 21:43 Basic Metabolic Profile Reviewed. le 21:43 CBC with Diff Reviewed. le 21:43 Liver Profile Reviewed. le 21:43 Urinalysis Reviewed. le 21:43 Cardiac Injury Profile Reviewed. le 21:43 Lipase Reviewed. le 21:43 Troponin Reviewed. le 21:43 Lactic Acid (Montero tube on ice) Reviewed. le 21:49 Fluid Challenge ordered. le 21:50 Financial registration complete. zo 21:51 [facility] [place] Payment Agreement was scanned into [employer] and attached to record. zo 22:44 HYDROcodone-acetaminophen 4 pack- 5 mg-325 mg 1 packets PO Per package directions; le Dispense with patient. 1 po q4h prn for pain ordered. 06/04 11:06 T-Sheet-- Draft Copy was scanned into [employer] and attached to record. gb 11:06 Radiology Report was scanned into [employer] and attached to record. gb Administered Medications: 06/03 20:50 Drug: NS 0.9% 1000 ml [sodium chloride 0.9 % intravenous solution] Route: IV; Rate: 100 js15 mL/hr; Site: right hand; 20:50 Drug: morphine 4 mg [morphine 4 mg/mL intravenous cartridge (1 mL)] Route: IVP; Site: js15 right hand; 21:30 Follow up: Pain 05/21 Adult; Response: Pain is decreased js15 20:50 Drug: Ondansetron 4 mg [ondansetron HCl 2 mg/mL intravenous solution (2 mL)] Route: js15 IVP; Site: right hand; 23:09 Drug: HYDROcodone-acetaminophen 4 pack- 1 packets [hydrocodone 5 mg-acetaminophen 325 js15 mg tablet (1 tabs)] {Co-Signature: [email or web address] (Ashlyn Vega RN).} Route: PO; Signatures: Dispatcher MedHost EDMS MockLanaYing, Reg Reg gb Oliva Mcghee Lisa, DINKEY PRESS OPERATOR DINKEY PRESS OPERATOR Janet Pires RN RN js15 Ashlyn Vgea RN kas2 The chart was reviewed and I authenticate all verbal orders and agree with the evaluation and treatment provided.Corrections: (The following items were deleted from the chart) 20:56 19:54 Straight cath ordered. gabe js15 Attachments: 21:51 [facility] Payment Agreement zo 06/04 11:06 T-Sheet-- Draft Copy gb Chart Complete MTDD
--- NOTE | 2016-06-06 00:15 | EDDOCDS ---
Physician Documentation [facility] Name: Gabbi Guzman Age: 60 yrs Sex: Female : 1955 Arrival Date: 06/03/2016 Time: 19:05 Bed 12 Private MD: Lizzy Rodney C Disposition: 06/03 22:47 Critical Care: Critical care not applicable. le Disposition: 06/03/16 22:45 Discharged to Home/Self Care. Impression: Unspecified renal colic - s/p stent removal, Hydronephrosis with renal and ureteral calculous obstruction - 1mm calc, distal right ureter. - Condition is Stable. - Discharge Instructions: Kidney Stones, Ureteral Colic. - Prescriptions for [place] 5- 325 mg Oral Tablet - take 1 tablet by ORAL route every 6 hours As needed MDD: 4 tabs; 6 tablet. ZOFRAN ODT 4 mg - dissolve 1 tablet by ORAL route 4 times per day As needed do not chew, do not swallow whole; 10 tablet. - Medication Reconciliation, Local Pharmacy Hours form. - Follow up: Manuel Paredes; When: Call to arrange an appointment; Reason: Recheck today's complaints, Continuance of care. - Problem is an acute exacerbation. - Symptoms have improved. - Notes: Keep hydrated Return to the ED for any further concerns Historical: - Allergies: Motrin (Upset stomach); Risperdal (Swelling); TETRACYCLINES (Rash); Tramadol HCl; - Home Meds: 1. Topamax 200 mg Oral tab 1 tab nightly 2. Remeron 30 mg Oral tab 1 tab once daily 3. levothyroxine 125 mcg Oral tab 1 tab once daily 4. Klonopin 1 mg Oral tab 1 tab 2 times per day 5. Ventolin Rotahaler/Rotacaps Inhl 6. Protonix 40 mg Oral TbEC 1 tab once daily 7. Vitamin D Oral 1,000 unit daily 8. Seroquel 400 mg Oral tab 1 tab nightly 9. Combivent Inhl four times a day 10. Percocet 5-325 mg Oral tab 2 tabs every 4 hours 11. Flexeril 10 mg oral tab 3 times per day - PMHx: Degenerative disc disease; Anxiety; Depression; GERD; Hypothyroidism; muscle spasms; Schizophrenia; Sciatica; Kidney stones; - PSHx: Shoulder Arthroplasty, Left; stomach surgery for reflux disease; Cholecystectomy; Hysterectomy; Hernia repair- Umbilical; left foot surgery; right kidney stent; Lithotripsy; - Social history: Smoking status: Patient uses tobacco products, light tobacco smoker. No barriers to communication noted, The patient speaks fluent Turkmen, Speaks appropriately for age. - Family history: Not pertinent. - : The pt / caregiver states he / she is not on anticoagulants. Home medication list is obtained from the patient, [employer] import data, a discharge med list. - Exposure Risk Screening:: None identified. Vital Signs: 19:33 BP 126 / 67; Pulse 76; Resp 18; Pulse Ox 95% on R/A; Weight 84.37 kg / 186 lbs; Height js15 5 ft. 3 in. (160.02 cm); Pain 10/10; 20:10 Temp 96.9(O); js15 20:24 Pulse 84 MON; Pulse Ox 94% ; js15 20:25 BP 153 / 82 (auto/); js15 20:38 Pulse 84 MON; Pulse Ox 95% ; js15 20:44 BP 165 / 87 (auto/); js15 20:55 BP 153 / 77 (auto/); js15 20:55 Pulse 80 MON; Pulse Ox 96% ; js15 21:10 BP 160 / 86 (auto/); js15 21:10 Pulse 82 MON; Pulse Ox 97% ; js15 21:25 BP 144 / 86 (auto/); js15 21:25 Pulse 80 MON; Pulse Ox 95% ; js15 21:30 Pain 1/10; js15 22:51 BP 136 / 77; Pulse 82; Resp 18; Temp 96.1(O); Pulse Ox 97% on R/A; sudhir 19:33 Body Mass Index 32.95 (84.37 kg, 160.02 cm) js15 MDM: 19:24 NS 0.9% 1000 ml IV at 100 mL/hr continuous ordered. le 19:24 IV Saline Lock ordered. le 19:24 Undress patient appropriately for examination ordered. le 19:24 Basic Metabolic Profile Ordered. EDMS 19:24 CBC with Diff Ordered. EDMS 19:24 Cardiac Injury Profile Ordered. EDMS 19:24 Lipase Ordered. EDMS 19:24 Liver Profile Ordered. EDMS 19:24 Troponin Ordered. EDMS 19:25 Urinalysis Ordered. EDMS 19:26 Abdomen, Flat\E\Upright,PA Chest Ordered. EDMS 19:26 NOTHING BY MOUTH+DIET ordered. EDMS 19:48 Repeat Temperature - Oral: Inform provider of result ordered. le 19:55 Lactic Acid (Montero tube on ice) Ordered. EDMS 19:55 CT ABD & PELVIS: No Contrast Ordered. EDMS 20:17 morphine 4 mg IVP every 15 minutes; Document pain score/vitals after each dose (Hold if le SBP < 90mmHg) x2 ordered. 20:17 Ondansetron 4 mg IVP once ordered. le 21:43 Basic Metabolic Profile Reviewed. le 21:43 CBC with Diff Reviewed. le 21:43 Liver Profile Reviewed. le 21:43 Urinalysis Reviewed. le 21:43 Cardiac Injury Profile Reviewed. le 21:43 Lipase Reviewed. le 21:43 Troponin Reviewed. le 21:43 Lactic Acid (Montero tube on ice) Reviewed. le 21:49 Fluid Challenge ordered. le 21:50 Financial registration complete. zo 21:51 [facility] [place] Payment Agreement was scanned into [employer] and attached to record. zo 22:44 HYDROcodone-acetaminophen 4 pack- 5 mg-325 mg 1 packets PO Per package directions; le Dispense with patient. 1 po q4h prn for pain ordered. 06/04 11:06 T-Sheet-- Draft Copy was scanned into [employer] and attached to record. gb 11:06 Radiology Report was scanned into [employer] and attached to record. gb Administered Medications: 06/03 20:50 Drug: NS 0.9% 1000 ml [sodium chloride 0.9 % intravenous solution] Route: IV; Rate: 100 js15 mL/hr; Site: right hand; 20:50 Drug: morphine 4 mg [morphine 4 mg/mL intravenous cartridge (1 mL)] Route: IVP; Site: js15 right hand; 21:30 Follow up: Pain 05/21 Adult; Response: Pain is decreased js15 20:50 Drug: Ondansetron 4 mg [ondansetron HCl 2 mg/mL intravenous solution (2 mL)] Route: js15 IVP; Site: right hand; 23:09 Drug: HYDROcodone-acetaminophen 4 pack- 1 packets [hydrocodone 5 mg-acetaminophen 325 js15 mg tablet (1 tabs)] {Co-Signature: [email or web address] (Ashlyn Vega RN).} Route: PO; Signatures: Dispatcher MedHost EDMS MockLanaYing, Reg Reg gb Oliva Mcghee Lisa, HOME APPLIANCE INSTALLER HOME APPLIANCE INSTALLER Janet Pires RN RN js15 Ashlyn Vega RN kas2 The chart was reviewed and I authenticate all verbal orders and agree with the evaluation and treatment provided.Corrections: (The following items were deleted from the chart) 20:56 19:54 Straight cath ordered. gabe js15 Attachments: 21:51 [facility] [place] Payment Agreement zo 06/04 11:06 T-Sheet-- Draft Copy gb Chart Complete MTDD
--- NOTE | 2016-06-06 00:15 | EDDOCDS ---
Nurse's Notes [facility] Name: Gabbi Guzman Age: 60 yrs Sex: Female : 1955 Arrival Date: 06/03/2016 Time: 19:05 Bed 12 Private MD: Lizzy Rodney C Diagnosis: Unspecified renal colic-s/p stent removal;Hydronephrosis with renal and ureteral calculous obstruction-1mm calc, distal right ureter Presentation: 06/03 19:27 Presenting complaint: EMS states: Pt had stent placed right kidney and had a js15 simultaneous lithotripsy; stent was removed today and pt has had abdominal/kidney pain and vomiting since. Adult Sepsis Screening: The patient does not have new or worsening altered mentation. Patient's respiratory rate is less than 22. Systolic blood pressure is greater than 100. Patient has a qSOFA score of 0- Negative Sepsis Screen. Suicide/Homicide risk assessment- the patient denies having any suicidal and/or homicidal ideations and does not present with any other emotional, behavioral or mental health complaints. 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 Transition of care: patient was not received from another setting of care. 19:27 Acuity: CHICO Level 3 js15 19:27 Method Of Arrival: Ambulance js15 Triage Assessment: 19:33 General: Appears uncomfortable, Behavior is cooperative. Pain: Location: right low back js15 and right lower quadrant Pain currently is 10 out of 10 on a pain scale. HIV screening NA for this visit Offered previously. The patient is triaged at the bedside. See Assessment in Nurses Notes section of ED record. Neurological: Level of Consciousness is awake, alert, obeys commands, Oriented to person, place, time. Respiratory: Airway is patent Respiratory effort is even, unlabored, Respiratory pattern is regular, symmetrical. GI: Reports nausea, vomiting, Pain is 10 out of 10 on a pain scale. Derm: Skin is pink, warm & dry. Historical: - Allergies: Motrin (Upset stomach); Risperdal (Swelling); TETRACYCLINES (Rash); Tramadol HCl; - Home Meds: 1. Topamax 200 mg Oral tab 1 tab nightly 2. Remeron 30 mg Oral tab 1 tab once daily 3. levothyroxine 125 mcg Oral tab 1 tab once daily 4. Klonopin 1 mg Oral tab 1 tab 2 times per day 5. Ventolin Rotahaler/Rotacaps Inhl 6. Protonix 40 mg Oral TbEC 1 tab once daily 7. Vitamin D Oral 1,000 unit daily 8. Seroquel 400 mg Oral tab 1 tab nightly 9. Combivent Inhl four times a day 10. Percocet 5-325 mg Oral tab 2 tabs every 4 hours 11. Flexeril 10 mg oral tab 3 times per day - PMHx: Degenerative disc disease; Anxiety; Depression; GERD; Hypothyroidism; muscle spasms; Schizophrenia; Sciatica; Kidney stones; - PSHx: Shoulder Arthroplasty, Left; stomach surgery for reflux disease; Cholecystectomy; Hysterectomy; Hernia repair- Umbilical; left foot surgery; right kidney stent; Lithotripsy; - Social history: Smoking status: Patient uses tobacco products, light tobacco smoker. No barriers to communication noted, The patient speaks fluent Canadian, Speaks appropriately for age. - Family history: Not pertinent. - : The pt / caregiver states he / she is not on anticoagulants. Home medication list is obtained from the patient, [employer] import data, a discharge med list. - Exposure Risk Screening:: None identified. Screenin:00 Screening information is obtained from the patient. Fall risk: No risks identified. js15 Assistance ADL's: requires no assistance with activities of daily living. Abuse/DV Screen: The patient / caregiver reports he/she is: not in a situation that causes fear, pain or injury. Nutritional screening: No deficits noted. Advance Directives: There is no active DNR order. home support is adequate. Assessment: 19:40 General: see triage note. js15 20:40 Reassessment: Patient appears in no apparent distress at this time. Neurological: Level js15 of Consciousness is awake, alert, obeys commands, Oriented to person, place, time. Cardiovascular: Rhythm is regular. Respiratory: Airway is patent Respiratory effort is even, unlabored, Respiratory pattern is regular, symmetrical, Breath sounds are clear bilaterally. GI: Abdomen is non- distended Bowel sounds present X 4 quads. Abd is soft X 4 quads. Derm: Skin is pink, warm & dry. 21:41 Reassessment: Patient appears in no apparent distress at this time. Patient states js15 feeling better. Patient states symptoms have improved. Pt resting comfortably on stretcher, reports marked relief of pain (scale 1/10). Respirations even and unlabored; skin pink, warm, dry. 23:00 General: Appears in no apparent distress, comfortable, Behavior is appropriate for age, js15 cooperative. Pain: Denies pain. Neurological: Level of Consciousness is awake, alert, obeys commands, Oriented to person, place, time. Respiratory: Airway is patent Respiratory effort is even, unlabored, Respiratory pattern is regular, symmetrical. Derm: Skin is pink, warm & dry. Vital Signs: 19:33 BP 126 / 67; Pulse 76; Resp 18; Pulse Ox 95% on R/A; Weight 84.37 kg; Height 5 ft. 3 js15 in. (160.02 cm); Pain 10/10; 20:10 Temp 96.9(O); js15 20:24 Pulse 84 MON; Pulse Ox 94% ; js15 20:25 BP 153 / 82 (auto/); js15 20:38 Pulse 84 MON; Pulse Ox 95% ; js15 20:44 BP 165 / 87 (auto/); js15 20:55 BP 153 / 77 (auto/); js15 20:55 Pulse 80 MON; Pulse Ox 96% ; js15 21:10 BP 160 / 86 (auto/); js15 21:10 Pulse 82 MON; Pulse Ox 97% ; js15 21:25 BP 144 / 86 (auto/); js15 21:25 Pulse 80 MON; Pulse Ox 95% ; js15 21:30 Pain 1/10; js15 22:51 BP 136 / 77; Pulse 82; Resp 18; Temp 96.1(O); Pulse Ox 97% on R/A; sudhir 19:33 Body Mass Index 32.95 (84.37 kg, 160.02 cm) [facility] Vitals: 19:33 Log In Time N/A - ambulance arrival. [facility] ED Course: 19:06 Patient visited by Renate Elizondo PCA. tmm1 19:06 Patient moved to Waiting tmm1 19:07 Lizzy Rodney is Private Physician. tmm1 19:07 Amara Ochoa,RN is Primary Nurse. tmm1 19:07 Patient moved to 12 tmm1 19:22 Ijeoma Ayala FNP [facility]. le 19:29 Triage Initiated js15 19:52 Patient visited by Ijeoma Ayala FNP. le 19:52 Patient visited by Ijeoma Ayala FNP. le 20:25 Inserted saline lock: 22 gauge in right hand. No procedures done that require js15 assistance. 20:31 Lactic Acid (Montero tube on ice) Sent. js15 20:31 Basic Metabolic Profile Sent. js15 20:31 CBC with Diff Sent. js15 20:31 Cardiac Injury Profile Sent. js15 20:31 Lipase Sent. js15 20:31 Liver Profile Sent. js15 20:32 Troponin Sent. js15 20:55 Patient visited by Janet Greene RN. js15 20:55 Urinalysis Sent. js15 21:00 The patient / caregiver is instructed regarding the plan of care and ED course. js15 21:45 Primary Nurse role handed off by Amara Ochoa RN sudhir 21:51 [facility] [place] Payment Agreement was scanned into [employer] and attached to record. zo 22:11 CT ABD & PELVIS: No Contrast Returned. EDMS 22:31 Assisted to bathroom. sudhir 22:32 Patient visited by Flower Flores PCA. sudhir 22:45 Manuel Paredes is Referral Physician. le 22:51 Patient visited by Flower Flores PCA. sudhir 23:13 Discontinued IV lock intact, bleeding controlled, pressure dressing applied, No js15 redness/swelling at site. 06/04 06:13 Abdomen, Flat\E\Upright,PA Chest Returned. EDMS 11:06 T-Sheet-- Draft Copy was scanned into [employer] and attached to record. gb 11:06 Radiology Report was scanned into [employer] and attached to record. gb Administered Medications: 06/03 20:50 Drug: NS 0.9% 1000 ml [sodium chloride 0.9 % intravenous solution] Route: IV; Rate: 100 js15 mL/hr; Site: right hand; 20:50 Drug: morphine 4 mg [morphine 4 mg/mL intravenous cartridge (1 mL)] Route: IVP; Site: js15 right hand; 21:30 Follow up: Pain /10 Adult; Response: Pain is decreased js15 20:50 Drug: Ondansetron 4 mg [ondansetron HCl 2 mg/mL intravenous solution (2 mL)] Route: js15 IVP; Site: right hand; 23:09 Drug: HYDROcodone-acetaminophen 4 pack- 1 packets [hydrocodone 5 mg-acetaminophen 325 js15 mg tablet (1 tabs)] {Co-Signature: kas2 (Ashlyn Vega RN).} Route: PO; Order Results: Lab Order: Basic Metabolic Profile; SPEC'M 06/03/16 20:27 Test: GLUCOSE, FASTING; Value: 112; Range: 70-105; Abnormal: Above high normal; Units: MG/DL; Status: F Test: BLOOD UREA NITROGEN; Value: 10; Range: 7-18; Units: MG/DL; Status: F Test: CREATININE FOR GFR; Value: 1.30; Range: 0.55-1.02; Abnormal: Above high normal; Units: MG/DL; Status: F Test: GLOMERULAR FILTRATION RATE; Value: 44.8; Range: >51; Abnormal: Below low normal; Status: F Test: SODIUM LEVEL; Value: 139; Range: 136-145; Units: MEQ/L; Status: F Test: POTASSIUM SERUM; Value: 3.4; Range: 3.5-5.1; Abnormal: Below low normal; Units: MEQ/L; Status: F Test: CHLORIDE LEVEL; Value: 109; Range: 98-107; Abnormal: Above high normal; Units: MEQ/L; Status: F Test: CARBON DIOXIDE LEVEL; Value: 21; Range: 21-32; Units: MEQ/L; Status: F Test: ANION GAP; Value: 9; Range: 8-16; Units: MEQ/L; Status: F Test: CALCIUM LEVEL; Value: 8.4; Range: 8.5-10.1; Abnormal: Below low normal; Units: MG/DL; Status: F Test Note: ; Units are mL/min/1.73 m2 Chronic Kidney Disease Staging per NKF: Stage I & II GFR >=60 Normal to Mildly Decreased Stage III GFR 30-59 Moderately Decreased Stage IV GFR 15-29 Severely Decreased Stage V GFR <15 Very Little GFR Left ESRD GFR <15 on REHABILITATION MEDICINE PHYSICIAN Lab Order: CBC with Diff; SPEC'M 06/03/16 20:27 Test: WHITE BLOOD COUNT; Value: 10.1; Range: 4.0-10.0; Abnormal: Above high normal; Units: K/mm3; Status: F Test: RED BLOOD COUNT; Value: 4.88; Range: 4.00-5.40; Units: M/mm3; Status: F Test: HEMOGLOBIN; Value: 14.8; Range: 12.0-16.0; Units: g/dl; Status: F Test: HEMATOCRIT; Value: 46.2; Range: 36.0-47.0; Units: %; Status: F Test: MEAN CORPUSCULAR VOLUME; Value: 94.6; Range: 80.0-96.0; Units: fl; Status: F Test: MEAN CORPUSCULAR HEMOGLOBIN; Value: 30.2; Range: 27.0-33.0; Units: pg; Status: F Test: MEAN CORPUSCULAR HGB CONC; Value: 32.0; Range: 32.0-36.5; Units: g/dl; Status: F Test: RED CELL DISTRIBUTION WIDTH; Value: 13.8; Range: 11.5-14.5; Units: %; Status: F Test: PLATELET COUNT, AUTOMATED; Value: 191; Range: 150-450; Units: k/mm3; Status: F Test: NEUTROPHILS %; Value: 80.0; Range: 36.0-66.0; Abnormal: Above high normal; Units: %; Status: F Test: LYMPH %; Value: 10.5; Range: 24.0-44.0; Abnormal: Below low normal; Units: %; Status: F Test: MONO %; Value: 5.0; Range: 0.0-5.0; Units: %; Status: F Test: EOS %; Value: 1.5; Range: 0.0-3.0; Units: %; Status: F Test: BASO %; Value: 1.3; Range: 0.0-1.0; Abnormal: Above high normal; Units: %; Status: F Test: LARGE UNSTAINED CELL %; Value: 1.7; Range: 0.0-4.0; Units: %; Status: F Test: NEUTROPHILS #; Value: 8.1; Range: 1.8-7.7; Abnormal: Above high normal; Units: K/mm3; Status: F Test: LYMPH #; Value: 1.1; Range: 1.5-4.5; Abnormal: Below low normal; Units: K/mm3; Status: F Test: MONO #; Value: 0.5; Range: 0.0-0.8; Units: K/mm3; Status: F Test: EOS #; Value: 0.2; Range: 0.0-0.50; Units: K/mm3; Status: F Test: BASO #; Value: 0.1; Range: 0.0-0.2; Units: K/mm3; Status: F Test: LARGE UNSTAINED CELL #; Value: 0.2; Range: 0.0-0.4; Units: K/mm3; Status: F Lab Order: Cardiac Injury Profile; [facility] 06/03/16 20:27 Test: CPK CREATINE PHOSPHOKINASE; Value: 55; Range: 26-192; Units: U/L; Status: F Test: CK-MB VALUE MASS; Value: 1.2; Range: 0.0-3.6; Units: NG/ML; Status: F Test: MB/CK RELATIVE INDEX; Value: 2.18; Range: < OR =4; Status: F Test Note: ; DIAGNOSIS CRITERIA MMB ng/ml Relative Index (RI) NON-AMI < or = 5 N/A MONTERO ZONE > 5 < or = 4 AMI > 5 > 4 Lab Order: Lipase; [facility] 06/03/16 20:27 Test: LIPASE; Value: 113; Range: 73-393; Units: U/L; Status: F Lab Order: Liver Profile; [facility] 06/03/16 20:27 Test: AST/SGOT; Value: 45; Range: 15-37; Abnormal: Above high normal; Units: U/L; Status: F Test: ALT/SGPT; Value: 69; Range: 12-78; Units: U/L; Status: F Test: ALKALINE PHOSPHATASE; Value: 135; Range: 45-117; Abnormal: Above high normal; Units: U/L; Status: F Test: BILIRUBIN,TOTAL; Value: 0.3; Range: 0.2-1.0; Units: MG/DL; Status: F Test: BILIRUBIN,DIRECT; Value: 0.1; Range: 0.0-0.2; Units: MG/DL; Status: F Test: TOTAL PROTEIN; Value: 7.8; Range: 6.4-8.2; Units: GM/DL; Status: F Test: ALBUMIN; Value: 3.6; Range: 3.2-5.2; Units: GM/DL; Status: F Test: ALBUMIN/GLOBULIN RATIO; Value: 0.86; Range: 1.00-1.93; Abnormal: Below low normal; Status: F Lab Order: Troponin; SPEC'M 06/03/16 20:27 Test: TROPONIN I; Value: < 0.02; Range: < 0.10; Units: NG/ML; Status: F Test Note: ; Troponin I Reference Interval for Siemens Scicasts LOCI: 99th Percentile= 0.00-0.045 ng/ml Risk Stratification: <= 0.10 ng/ml Decreased Risk for Adverse Clinical Events. 0.10-1.50 ng/ml Increased Risk for Adverse Clinical Events. Evaluation of additional criterion and/or repeat testing in 2-6 hours is suggested to rule out myocardial damage. >= 1.50 ng/ml Indicative of Myocardial Injury. Lab Order: Urinalysis; SPEC'M 06/03/16 20:49 Test: APPEARANCE, URINE; Value: HAZY; Range: CLEAR; Status: F Test: COLOR, URINE; Value: YELLOW; Range: YELLOW; Status: F Test: PH,URINE; Value: 6.0; Range: 5.0-9.0; Units: UNITS; Status: F Test: SPECIFIC GRAVITY URINE AUTO; Value: 1.017; Range: 1.002-1.035; Status: F Test: PROTEIN, URINE AUTO; Value: 3+; Range: NEGATIVE; Abnormal: Above high normal; Units: mg/dL; Status: F Test: GLUCOSE, URINE (UA) AUTO; Value: NEGATIVE; Range: NEGATIVE; Units: mg/dL; Status: F Test: KETONE, URINE AUTO; Value: NEGATIVE; Range: NEGATIVE; Units: mg/dL; Status: F Test: UROBILINOGEN, URINE AUTO; Value: 0.2; Range: 0.0-2.0; Units: mg/dL; Status: F Test: BILIRUBIN, URINE AUTO; Value: NEGATIVE; Range: NEGATIVE; Status: F Test: NITRITE, URINE AUTO; Value: NEGATIVE; Range: NEGATIVE; Status: F Test: LEUKOCYTE ESTERASE, URINE AUTO; Value: 2+; Range: NEGATIVE; Abnormal: Above high normal; Status: F Test: BLOOD, URINE BLOOD; Value: 2+; Range: NEGATIVE; Abnormal: Above high normal; Status: F Test: WBC, URINE AUTO; Value: 114; Range: 0-3; Abnormal: Above high normal; Units: /HPF; Status: F Test: RBC, URINE AUTO; Value: TNTC; Range: 0-3; Abnormal: Above high normal; Units: /HPF; Status: F Test: BACTERIA, URINE AUTO; Value: NEGATIVE; Range: NEGATIVE; Status: F Test: SQUAMOUS EPITHELIAL CELL UR AU; Value: 4; Range: 0-6; Units: /HPF; Status: F Test: MUCUS, URINE; Value: SMALL; Range: NEGATIVE; Status: F Test: HYALINE CAST, URINE AUTO; Value: 3; Range: 0-1; Units: /LPF; Status: F Test: AMORPHOUS SEDIMENT; Value: SMALL; Range: NEGATIVE; Abnormal: Above high normal; Status: F Lab Order: Lactic Acid (Montero tube on ice); SPEC'M 06/03/16 20:27 Test: LACTIC ACID LEVEL, LACTATE; Value: 1.4; Range: 0.4-2.0; Units: MMOL/L; Status: F Radiology Order: Abdomen, Flat\E\Upright,PA Chest Test: Abdomen, Flat\E\Upright,PA Chest REASON FOR EXAMINATION: Abdomen Pain; ABDOMEN, FLAT AND UPRIGHT; PA CHEST, THREE VIEWS:; ; HISTORY: Abdominal pain.; ; Air is present in small and large intestine. Several air fluid levels are; present. There are no dilated loops of intestine. There is no pneumoperitoneum.; The lungs are clear.; ; IMPRESSION:; ; Nonspecific bowel gas pattern.; ; ; Signed by; Rm Riojas MD 06/04/2016 08:47 A; Radiology Order: CT ABD & PELVIS: No Contrast Test: CT ABD & PELVIS: No Contrast REASON FOR EXAMINATION: recent stent/lithotripy, fever, pain; ; CT of the abdomen and pelvis without contrast; Clinical statement: Pain.; Technique: Multiple axial CT images were obtained from the base of the lungs to the floor of the pelv; is utilizing 5 mm axial slices without administration of contrast. Coronal and sagittal reconstructio; ns were also obtained.; Comparison: 02/22/2016.; Findings:; Chest: The visualized lung bases are clear.; Abdomen: The kidneys are normal in size bilaterally. There is moderate right-sided hydronephrosis and; hydroureter with perineprhic and periureteral inflammatory changes. A tiny 1 mm stone is seen in the; distal right ureter. The 1 cm stone seen in the right renal collecting system on the prior study is; no longer visualized. The left renal collecting system is unremarkable. Diffuse low attenuation of th; e liver is appreciated. The patient is status post cholecystectomy. The spleen, pancreas, and adrenal; glands are unremarkable. The aorta demonstrates normal caliber and contour. There is no abdominal ly; mphadenopathy or ascites.; Pelvis: The bowel is unremarkable, with no obstructive or inflammatory changes. The urinary bladder i; s within normal limits. There is no pelvic lymphadenopathy or ascites. The other pelvic structures ap; pear unremarkable.; Bones: There are no suspicious osseous abnormalities seen.; Impression:; 1. New moderate right-sided hydronephrosis and hydroureter with surrounding inflammatory stranding. A; 1 mm stone is seen in the distal right ureter. The 1 cm kidney stone seen in the right renal collect; ing system on the prior study is no longer visualized in likely has passed.; 2. Diffuse fatty infiltration of the liver.; 3. No obstructive or inflammatory bowel changes.; ; Outcome: 22:45 Discharge ordered by Provider. le 23:13 Discharge Assessment: Patient awake, alert and oriented x 3. No cognitive and/or js15 functional deficits noted. Patient verbalized understanding of disposition instructions. patient administered narcotics - yes. Pt provided with safe discharge. The following High Risk Discharge criteria are identified: None. Discharged to home ambulatory. Condition: stable Condition: improved. Discharge instructions given to patient, Instructed on discharge instructions, follow up and referral plans. medication usage, no driving heavy equipment, Demonstrated understanding of instructions, medications, Pt was receptive of discharge instructions/ teaching. Prescriptions given X 2. CT Study completed. Property sent home with patient. 23:13 Patient left the ED. js15 Signatures: Dispatcher [employer] EDMS Ying Mock, Dutch Reg gb Taz, Oliva zo Ijeoma Ayala, SUPERVISOR CONTINGENTS SUPERVISOR CONTINGENTS le Flower Flores, TICKETER TICKETER sudhir McLear, Renate, TICKETER TICKETER tmm1 Janet Greene,RN RN js15 Ashlyn Vega RN kas2 Chart Complete MTDD
== END 2016-06-03 23:13 | disposition home or self-care (01) ==
LOC: M ED 19:05
DX: N20.1 Calculus of ureter (principal); N23 Unspecified renal colic; K21.9 Gastro-esophageal reflux disease without esophagitis; E03.9 Hypothyroidism, unspecified; F41.9 Anxiety disorder, unspecified; F32.9 Major depressive disorder, single episode, unspecified; F20.9 Schizophrenia, unspecified; M51.9 Unspecified thoracic, thoracolumbar and lumbosacral intervertebral disc disorder; M54.30 Sciatica, unspecified side; M62.838 Other muscle spasm; Z87.442 Personal history of urinary calculi; Z79.899 Other long term (current) drug therapy; Z79.51 Long term (current) use of inhaled steroids; Z88.1 Allergy status to other antibiotic agents; Z88.5 Allergy status to narcotic agent; Z88.6 Allergy status to analgesic agent; Z88.8 Allergy status to other drugs, medicaments and biological substances; F17.210 Nicotine dependence, cigarettes, uncomplicated
CPT/HCPCS: 74022; 74176; 80048; 80076; 81001; 82550; 82553; 83605; 83690; 85025; 96374; 96375; 99284; J2405

== ENCOUNTER 2016-06-26 01:16 | Emergency (ER) | payer OTHER ==
--- NOTE | 2016-06-26 03:00 | REPUSA ---
CLINICAL HISTORY: TECHNIQUE: Multiple axial and coronal CT images were obtained through the abdomen and pelvis without administration of oral or IV contrast material. COMMENTS: Comparison is made to the prior exam performed on 06/03/2016. The liver is moderately enlarged with decreased attenuation without mass or defect. There is no intra or extrahepatic biliary ductal dilatation. The spleen is normal. The gallbladder is surgically absen t. The pancreas is of normal contour and attenuation characteristics. There is no evidence of adrenal mass. Chronic atrophy of the right kidney. Mild fullness of the right collecting system. Diffuse thickening of the bladder. Surgical changes of the stomach. There is no evidence for appendicitis. There is no bowel wall thickening. No evidence for small or la rge bowel obstruction. There is no evidence of abdominal ascites or lymphadenopathy. There is no evidence of intrinsic or extrinsic bladder mass. There is no pelvic ascites or lymphadeno davide. Images of the lung bases show no evidence of pleural or parenchymal mass. There are no pleural effusi ons. The bony structures are free of lytic or blastic lesions. IMPRESSION: Chronic atrophy of the right kidney. Right urothelial thickening suggestive of an ascending urinary tract infection. Thickened urinary bladder. No obstructing stone is seen. Constipation. Thank you for your kind referral of this patient.
[2016-06-26 03:17] LABS: BASO # 0.1 K/mm3 (0.0-0.2); BASO % 1.3 % (0.0-1.0); EOS # 0.4 K/mm3 (0.0-0.50); EOS % 6.1 % (0.0-3.0); LARGE UNSTAINED CELL # 0.2 K/mm3 (0.0-0.4); LARGE UNSTAINED CELL % 2.5 % (0.0-4.0); LYMPH # 2.4 K/mm3 (1.5-4.5); LYMPH % 30.7 % (24.0-44.0); MEAN CORPUSCULAR HEMOGLOBIN 30.1 pg (27.0-33.0); MEAN CORPUSCULAR HGB CONC 32.1 g/dl (32.0-36.5); MEAN CORPUSCULAR VOLUME 93.6 fl (80.0-96.0); MONO # 0.6 K/mm3 (0.0-0.8); MONO % 7.9 % (0.0-5.0); NEUTROPHILS # 3.8 K/mm3 (1.8-7.7); NEUTROPHILS % 51.6 % (36.0-66.0); PLATELET COUNT, AUTOMATED 180 k/mm3 (150-450); RED CELL DISTRIBUTION WIDTH 12.5 % (11.5-14.5); WHITE BLOOD COUNT 6.9 K/mm3 (4.0-10.0)
[2016-06-26 03:29] LABS: CONTROL LINE HCG INT CTR LINE PRESENT
[2016-06-26 03:42] LABS: ALBUMIN 3.8 GM/DL (3.2-5.2); ALBUMIN/GLOBULIN RATIO 1.06 (1.00-1.93); ALKALINE PHOSPHATASE 116 U/L (45-117); ALT/SGPT 53 U/L (12-78); AMYLASE 41 U/L (25-115); ANION GAP 9 MEQ/L (8-16); AST/SGOT 30 U/L (15-37); BILIRUBIN,DIRECT < 0.1 MG/DL (0.0-0.2); BILIRUBIN,TOTAL 0.2 MG/DL (0.2-1.0); BLOOD UREA NITROGEN 9 MG/DL (7-18); CALCIUM LEVEL 8.2 MG/DL (8.5-10.1); CARBON DIOXIDE LEVEL 24 MEQ/L (21-32); CHLORIDE LEVEL 111 MEQ/L (98-107); CREATININE FOR GFR 1.23 MG/DL (0.55-1.02); GLOMERULAR FILTRATION RATE 47.7 (>51); GLUCOSE, FASTING 112 MG/DL (70-105); POTASSIUM SERUM 3.7 MEQ/L (3.5-5.1); SODIUM LEVEL 144 MEQ/L (136-145); TOTAL PROTEIN 7.4 GM/DL (6.4-8.2)
[2016-06-26] MEDS ORDERED: CIPROFLOXACIN 500 MG TAB As Ordered ONE (03:48)
--- NOTE | 2016-06-26 04:00 | EDDOCDS ---
Nurse's Notes [facility] Name: Gabbi Guzman Age: 60 yrs Sex: Female : 1955 Arrival Date: 06/26/2016 Time: 01:16 Bed 11 Private MD: Diagnosis: Urinary tract infection, site not specified Presentation: 06/26 01:26 Presenting complaint: Patient states: wants to have a test done to see if she still has ko2 a kidney stone because her back still hurts and still has pain when she urinates. Acute neurological deficits are not present. Mechanism of Injury: No Mechanism of Injury. Suicide/Homicide risk assessment- the patient denies having any suicidal and/or homicidal ideations and does not present with any other emotional, behavioral or mental health complaints. 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 Transition of care: patient was not received from another setting of care. 01:26 Acuity: CHICO Level 3 ko2 01:26 Method Of Arrival: Walkin/Carried/Asstd ko2 01:35 Adult Sepsis Screening: The patient does not have new or worsening altered mentation. ko2 Patient's respiratory rate is less than 22. Systolic blood pressure is greater than 100. Patient has a qSOFA score of 0- Negative Sepsis Screen. Triage Assessment: 01:31 General: Appears in no apparent distress, Behavior is appropriate for age, cooperative. ko2 Pain: Location: right mid back. HIV screening NA for this visit Offered previously. Neurological: Level of Consciousness is awake, alert. Respiratory: Airway is patent Respiratory effort is even, unlabored, Respiratory pattern is regular, symmetrical. Derm: Skin is normal. Musculoskeletal: Range of motion intact in all extremities. Historical: - Allergies: Motrin (Upset stomach); Risperdal (Swelling); TETRACYCLINES (Rash); Tramadol HCl; - Home Meds: 1. Combivent Inhl four times a day 2. Flexeril 10 mg Oral tab 3 times per day 3. Klonopin 1 mg Oral tab 1 tab 2 times per day 4. levothyroxine 125 mcg Oral tab 1 tab once daily 5. Protonix 40 mg Oral TbEC 1 tab once daily 6. Remeron 30 mg Oral tab 1 tab once daily 7. Topamax 200 mg Oral tab 1 tab nightly 8. Ventolin Rotahaler/Rotacaps Inhl 9. Vitamin D Oral 1000 unit daily 10. Invega 3 mg Oral tr24 1 tab at bedtime 11. Benadryl 50 mg Oral cap at bedtime as needed - PMHx: Anxiety; Degenerative disc disease; Depression; GERD; Hypothyroidism; Kidney stones; muscle spasms; Schizophrenia; Sciatica; - PSHx: Shoulder Arthroplasty, Left; stomach surgery for reflux disease; Cholecystectomy; Hysterectomy; Hernia repair- Umbilical; left foot surgery; right kidney stent; Lithotripsy; Cataract Surgery- Left; - Social history: Smoking status: Patient uses tobacco products, light tobacco smoker. No barriers to communication noted, The patient speaks fluent Pashto, Speaks appropriately for age. - Family history: Not pertinent. - : The pt / caregiver states he / she is not on anticoagulants. Home medication list is obtained from the patient. - Exposure Risk Screening:: None identified. Screenin:35 Screening information is obtained from the patient. Fall risk: No risks identified. ko2 Assistance ADL's: requires no assistance with activities of daily living. Abuse/DV Screen: The patient / caregiver reports he/she is: not in a situation that causes fear, pain or injury. Nutritional screening: No deficits noted. Advance Directives: Currently, there is no health care proxy. There is no active DNR order. There is no living will. There is no Power of Gl Accountant. home support is adequate. Assessment: 02:59 General: Appears in no apparent distress, comfortable, Behavior is appropriate for age, ko2 cooperative. Neurological: Level of Consciousness is awake, alert. Respiratory: Airway is patent Respiratory effort is even, unlabored. Derm: Skin is normal. 03:52 General: Appears in no apparent distress, Behavior is cooperative, pleasant. mv5 Neurological: Level of Consciousness is awake, alert, Oriented to person, place, time. Respiratory: Airway is patent Respiratory effort is even, unlabored. Derm: Skin is normal. Vital Signs: 01:32 BP 126 / 68; Pulse 95; Resp 16; Temp 98.7(O); Pulse Ox 96% ; Weight 84.37 kg; Height 5 ko2 ft. 3 in. (160.02 cm); Pain 6/10; 03:57 BP 129 / 85; Pulse 87; Resp 16; Pulse Ox 96% ; mv5 01:32 Body Mass Index 32.95 (84.37 kg, 160.02 cm) ko2 Vitals: 01:32 Log In Time: June 26, 2016 at 01:16. ko2 ED Course: 01:18 Patient visited by Christal Ferreira. gjb 01:18 Patient moved to Waiting gjb 01:27 Triage Initiated ko2 02:59 Urine Culture Sent. ko2 02:59 Urinalysis Sent. ko2 02:59 HCG,Serum Qualitative Sent. ko2 02:59 Lipase Sent. ko2 02:59 Amylase Sent. ko2 02:59 Liver Profile Sent. ko2 02:59 MED Profile Sent. ko2 02:59 CBC with Diff Sent. ko2 03:00 Patient visited by Dora Lester RN. ko2 03:09 CT ABD & PELVIS: No Contrast Returned. EDMS 03:13 [facility] Payment Agreement was scanned into own[employer] and attached to record. pm4 03:35 Lupe Perez,RN is Primary Nurse. may 03:35 Patient moved to May 03:39 Andry Reyes DO is Attending Physician. cs11 03:40 Patient visited by Andry Reyes DO. cs11 03:52 The patient / caregiver is instructed regarding the plan of care and ED course. mv5 03:52 No IV's were initiated during this patient's visit. No procedures done that require mv5 assistance. Administered Medications: 03:51 Drug: Ciprofloxacin 500 mg [ciprofloxacin 500 mg tablet (1 tabs)] Route: PO; mv5 03:58 Follow up: Response: No Adverse Reaction mv5 Order Results: Lab Order: CBC with Diff; SPEC'M 06/26/16 02:58 Test: WHITE BLOOD COUNT; Value: 6.9; Range: 4.0-10.0; Units: K/mm3; Status: F Test: RED BLOOD COUNT; Value: 4.69; Range: 4.00-5.40; Units: M/mm3; Status: F Test: HEMOGLOBIN; Value: 14.1; Range: 12.0-16.0; Units: g/dl; Status: F Test: HEMATOCRIT; Value: 43.9; Range: 36.0-47.0; Units: %; Status: F Test: MEAN CORPUSCULAR VOLUME; Value: 93.6; Range: 80.0-96.0; Units: fl; Status: F Test: MEAN CORPUSCULAR HEMOGLOBIN; Value: 30.1; Range: 27.0-33.0; Units: pg; Status: F Test: MEAN CORPUSCULAR HGB CONC; Value: 32.1; Range: 32.0-36.5; Units: g/dl; Status: F Test: RED CELL DISTRIBUTION WIDTH; Value: 12.5; Range: 11.5-14.5; Units: %; Status: F Test: PLATELET COUNT, AUTOMATED; Value: 180; Range: 150-450; Units: k/mm3; Status: F Test: NEUTROPHILS %; Value: 51.6; Range: 36.0-66.0; Units: %; Status: F Test: LYMPH %; Value: 30.7; Range: 24.0-44.0; Units: %; Status: F Test: MONO %; Value: 7.9; Range: 0.0-5.0; Abnormal: Above high normal; Units: %; Status: F Test: EOS %; Value: 6.1; Range: 0.0-3.0; Abnormal: Above high normal; Units: %; Status: F Test: BASO %; Value: 1.3; Range: 0.0-1.0; Abnormal: Above high normal; Units: %; Status: F Test: LARGE UNSTAINED CELL %; Value: 2.5; Range: 0.0-4.0; Units: %; Status: F Test: NEUTROPHILS #; Value: 3.8; Range: 1.8-7.7; Units: K/mm3; Status: F Test: LYMPH #; Value: 2.4; Range: 1.5-4.5; Units: K/mm3; Status: F Test: MONO #; Value: 0.6; Range: 0.0-0.8; Units: K/mm3; Status: F Test: EOS #; Value: 0.4; Range: 0.0-0.50; Units: K/mm3; Status: F Test: BASO #; Value: 0.1; Range: 0.0-0.2; Units: K/mm3; Status: F Test: LARGE UNSTAINED CELL #; Value: 0.2; Range: 0.0-0.4; Units: K/mm3; Status: F Lab Order: MED Profile; SPEC'M 06/26/16 02:58 Test: GLUCOSE, FASTING; Value: 112; Range: 70-105; Abnormal: Above high normal; Units: MG/DL; Status: F Test: BLOOD UREA NITROGEN; Value: 9; Range: 7-18; Units: MG/DL; Status: F Test: CREATININE FOR GFR; Value: 1.23; Range: 0.55-1.02; Abnormal: Above high normal; Units: MG/DL; Status: F Test: SODIUM LEVEL; Range: 136-145; Units: MEQ/L; Status: I Test: POTASSIUM SERUM; Range: 3.5-5.1; Units: MEQ/L; Status: I Test: CHLORIDE LEVEL; Range: 98-107; Units: MEQ/L; Status: I Test: CARBON DIOXIDE LEVEL; Range: 21-32; Units: MEQ/L; Status: I Test: ANION GAP; Range: 8-16; Units: MEQ/L; Status: I Test: CALCIUM LEVEL; Range: 8.5-10.1; Units: MG/DL; Status: I Test: GLOMERULAR FILTRATION RATE; Value: 47.7; Range: >51; Abnormal: Below low normal; Status: F Test: SODIUM LEVEL; Value: 144; Range: 136-145; Units: MEQ/L; Status: F Test: POTASSIUM SERUM; Value: 3.7; Range: 3.5-5.1; Units: MEQ/L; Status: F Test: CHLORIDE LEVEL; Value: 111; Range: 98-107; Abnormal: Above high normal; Units: MEQ/L; Status: F Test: CARBON DIOXIDE LEVEL; Value: 24; Range: 21-32; Units: MEQ/L; Status: F Test: ANION GAP; Value: 9; Range: 8-16; Units: MEQ/L; Status: F Test: CALCIUM LEVEL; Value: 8.2; Range: 8.5-10.1; Abnormal: Below low normal; Units: MG/DL; Status: F Test Note: ; Units are mL/min/1.73 m2 Chronic Kidney Disease Staging per NKF: Stage I & II GFR >=60 Normal to Mildly Decreased Stage III GFR 30-59 Moderately Decreased Stage IV GFR 15-29 Severely Decreased Stage V GFR <15 Very Little GFR Left ESRD GFR <15 on [facility] Lab Order: Liver Profile; [facility] 06/26/16 02:58 Test: AST/SGOT; Value: 30; Range: 15-37; Units: U/L; Status: F Test: ALT/SGPT; Value: 53; Range: 12-78; Units: U/L; Status: F Test: ALKALINE PHOSPHATASE; Value: 116; Range: 45-117; Units: U/L; Status: F Test: BILIRUBIN,TOTAL; Value: 0.2; Range: 0.2-1.0; Units: MG/DL; Status: F Test: BILIRUBIN,DIRECT; Value: < 0.1; Range: 0.0-0.2; Units: MG/DL; Status: F Test: TOTAL PROTEIN; Value: 7.4; Range: 6.4-8.2; Units: GM/DL; Status: F Test: ALBUMIN; Value: 3.8; Range: 3.2-5.2; Units: GM/DL; Status: F Test: ALBUMIN/GLOBULIN RATIO; Value: 1.06; Range: 1.00-1.93; Status: F Lab Order: Amylase; [facility] 06/26/16 02:58 Test: AMYLASE; Value: 41; Range: 25-115; Units: U/L; Status: F Lab Order: Lipase; [facility] 06/26/16 02:58 Test: LIPASE; Value: 170; Range: 73-393; Units: U/L; Status: F Lab Order: HCG,Serum Qualitative; [facility] 06/26/16 02:58 Test: HCG, SERUM QUALITATIVE; Value: NEGATIVE; Range: NEGATIVE; Status: F Lab Order: Urinalysis; [facility] 06/26/16 02:58 Test: APPEARANCE, URINE; Value: CLEAR; Range: CLEAR; Status: F Test: COLOR, URINE; Value: STRAW; Range: YELLOW; Status: F Test: PH,URINE; Value: 6.0; Range: 5.0-9.0; Units: UNITS; Status: F Test: SPECIFIC GRAVITY URINE AUTO; Value: 1.002; Range: 1.002-1.035; Status: F Test: PROTEIN, URINE AUTO; Value: NEGATIVE; Range: NEGATIVE; Units: mg/dL; Status: F Test: GLUCOSE, URINE (UA) AUTO; Value: NEGATIVE; Range: NEGATIVE; Units: mg/dL; Status: F Test: KETONE, URINE AUTO; Value: NEGATIVE; Range: NEGATIVE; Units: mg/dL; Status: F Test: UROBILINOGEN, URINE AUTO; Value: 0.2; Range: 0.0-2.0; Units: mg/dL; Status: F Test: BILIRUBIN, URINE AUTO; Value: NEGATIVE; Range: NEGATIVE; Status: F Test: NITRITE, URINE AUTO; Value: NEGATIVE; Range: NEGATIVE; Status: F Test: LEUKOCYTE ESTERASE, URINE AUTO; Value: 3+; Range: NEGATIVE; Abnormal: Above high normal; Status: F Test: BLOOD, URINE BLOOD; Value: NEGATIVE; Range: NEGATIVE; Status: F Test: WBC, URINE AUTO; Value: 14; Range: 0-3; Abnormal: Above high normal; Units: /HPF; Status: F Test: RBC, URINE AUTO; Value: 1; Range: 0-3; Units: /HPF; Status: F Test: BACTERIA, URINE AUTO; Value: NEGATIVE; Range: NEGATIVE; Status: F Test: SQUAMOUS EPITHELIAL CELL UR AU; Value: 2; Range: 0-6; Units: /HPF; Status: F Test: HYALINE CAST, URINE AUTO; Value: 0; Range: 0-1; Units: /LPF; Status: F Radiology Order: CT ABD & PELVIS: No Contrast Test: CT ABD & PELVIS: No Contrast REASON FOR EXAMINATION: Renal colic; ; CLINICAL HISTORY:; TECHNIQUE: Multiple axial and coronal CT images were obtained through the abdomen and pelvis without; administration of oral or IV contrast material.; COMMENTS:; Comparison is made to the prior exam performed on 06/03/2016.; The liver is moderately enlarged with decreased attenuation without mass or defect. There is no intra; or extrahepatic biliary ductal dilatation. The spleen is normal. The gallbladder is surgically absen; t. The pancreas is of normal contour and attenuation characteristics. There is no evidence of adrenal; mass.; Chronic atrophy of the right kidney. Mild fullness of the right collecting system. Diffuse thickening; of the bladder. Surgical changes of the stomach.; There is no evidence for appendicitis. There is no bowel wall thickening. No evidence for small or la; rge bowel obstruction. There is no evidence of abdominal ascites or lymphadenopathy.; There is no evidence of intrinsic or extrinsic bladder mass. There is no pelvic ascites or lymphadeno; davide.; Images of the lung bases show no evidence of pleural or parenchymal mass. There are no pleural effusi; ons.; The bony structures are free of lytic or blastic lesions.; IMPRESSION:; Chronic atrophy of the right kidney.; Right urothelial thickening suggestive of an ascending urinary tract infection.; Thickened urinary bladder.; No obstructing stone is seen.; Constipation.; Thank you for your kind referral of this patient.; ; Outcome: 03:46 Discharge ordered by Provider. cs11 03:57 Discharge Assessment: Patient awake, alert and oriented x 3. No cognitive and/or mv5 functional deficits noted. Patient verbalized understanding of disposition instructions. patient administered narcotics - no. The following High Risk Discharge criteria are identified: None. Discharged to home ambulatory, with family. Condition: stable. Demonstrated understanding of Pt was receptive of discharge instructions/ teaching. CT Study completed. Property sent home with patient. 03:59 Patient left the ED. mv5 Signatures: Dispatcher [employer] EDMS Milady Stout, RN RN Andry Malone, DO DO cs11 Dora Lester,RN RN ana2 Christal Ferreira Paul, Reg Reg pm4 Lupe Perez,RN RN mv5 MTDD
--- NOTE | 2016-06-26 04:00 | EDDOCDS ---
Physician Documentation [facility] Name: Gabbi Guzman Age: 60 yrs Sex: Female : 1955 Arrival Date: 06/26/2016 Time: 01:16 Bed 11 Private MD: Disposition: 06/26/16 03:46 Discharged to Home/Self Care. Impression: Urinary tract infection, site not specified. - Condition is Stable. - Prescriptions for Cipro 500 mg Oral Tablet - take 1 tablet by ORAL route every 12 hours; 10 tablet. - Medication Reconciliation, Local Pharmacy Hours form. - Follow up: Private Physician; When: Call to arrange an appointment; Reason: Recheck today's complaints. - Problem is an ongoing problem. - Symptoms have improved. Historical: - Allergies: Motrin (Upset stomach); Risperdal (Swelling); TETRACYCLINES (Rash); Tramadol HCl; - Home Meds: 1. Combivent Inhl four times a day 2. Flexeril 10 mg Oral tab 3 times per day 3. Klonopin 1 mg Oral tab 1 tab 2 times per day 4. levothyroxine 125 mcg Oral tab 1 tab once daily 5. Protonix 40 mg Oral TbEC 1 tab once daily 6. Remeron 30 mg Oral tab 1 tab once daily 7. Topamax 200 mg Oral tab 1 tab nightly 8. Ventolin Rotahaler/Rotacaps Inhl 9. Vitamin D Oral 1000 unit daily 10. Invega 3 mg Oral tr24 1 tab at bedtime 11. Benadryl 50 mg Oral cap at bedtime as needed - PMHx: Anxiety; Degenerative disc disease; Depression; GERD; Hypothyroidism; Kidney stones; muscle spasms; Schizophrenia; Sciatica; - PSHx: Shoulder Arthroplasty, Left; stomach surgery for reflux disease; Cholecystectomy; Hysterectomy; Hernia repair- Umbilical; left foot surgery; right kidney stent; Lithotripsy; Cataract Surgery- Left; - Social history: Smoking status: Patient uses tobacco products, light tobacco smoker. No barriers to communication noted, The patient speaks fluent Mongolian, Speaks appropriately for age. - Family history: Not pertinent. - : The pt / caregiver states he / she is not on anticoagulants. Home medication list is obtained from the patient. - Exposure Risk Screening:: None identified. Vital Signs: 06/26 01:32 BP 126 / 68; Pulse 95; Resp 16; Temp 98.7(O); Pulse Ox 96% ; Weight 84.37 kg / 186 lbs; ko2 Height 5 ft. 3 in. (160.02 cm); Pain 6/10; 03:57 BP 129 / 85; Pulse 87; Resp 16; Pulse Ox 96% ; mv5 01:32 Body Mass Index 32.95 (84.37 kg, 160.02 cm) ko2 MDM: 02:18 CT ABD & PELVIS: No Contrast Ordered. EDMS 02:18 CBC with Diff Ordered. EDMS 02:18 MED Profile Ordered. EDMS 02:18 Liver Profile Ordered. EDMS 02:18 Amylase Ordered. EDMS 02:18 Lipase Ordered. EDMS 02:18 HCG,Serum Qualitative Ordered. EDMS 02:18 Urinalysis Ordered. EDMS 02:19 Urine Culture Ordered. EDMS 03:13 [facility] Payment Agreement was scanned into [employer] and attached to record. pm4 03:42 CBC with Diff Reviewed. cs11 03:42 Urinalysis Reviewed. cs11 03:42 HCG,Serum Qualitative Reviewed. cs11 03:42 CT ABD & PELVIS: No Contrast Reviewed. cs11 03:45 MED Profile Reviewed. cs11 03:45 Liver Profile Reviewed. cs11 03:45 Amylase Reviewed. cs11 03:45 Lipase Reviewed. cs11 03:45 HCG,Serum Qualitative Reviewed. cs11 03:47 Ciprofloxacin 500 mg PO once ordered. cs11 03:48 Financial registration complete. pm4 Administered Medications: 03:51 Drug: Ciprofloxacin 500 mg [ciprofloxacin 500 mg tablet (1 tabs)] Route: PO; mv5 03:58 Follow up: Response: No Adverse Reaction mv5 Signatures: Dispatcher [employer] EDMS Andry Reyes, DO cs11 Dora Lester,RN RN ko2 Osbaldo Mcfarlane, Reg Reg pm4 Lupe Perez RN RN mv5 The chart was reviewed and I authenticate all verbal orders and agree with the evaluation and treatment provided.Attachments: 03:13 [facility] Payment Agreement pm4 MTDD
--- NOTE | 2016-06-28 05:00 | EDDOCDS ---
Nurse's Notes [facility] Name: Gabbi Guzman Age: 60 yrs Sex: Female : 1955 Arrival Date: 06/26/2016 Time: 01:16 Bed 11 Private MD: Diagnosis: Urinary tract infection, site not specified Presentation: 06/26 01:26 Presenting complaint: Patient states: wants to have a test done to see if she still has ko2 a kidney stone because her back still hurts and still has pain when she urinates. Acute neurological deficits are not present. Mechanism of Injury: No Mechanism of Injury. Suicide/Homicide risk assessment- the patient denies having any suicidal and/or homicidal ideations and does not present with any other emotional, behavioral or mental health complaints. Status: Patient is not a driver service technician or dependent. Transition of care: patient was not received from another setting of care. 01:26 Acuity: CHICO Level 3 ko2 01:26 Method Of Arrival: Walkin/Carried/Asstd ko2 01:35 Adult Sepsis Screening: The patient does not have new or worsening altered mentation. ko2 Patient's respiratory rate is less than 22. Systolic blood pressure is greater than 100. Patient has a qSOFA score of 0- Negative Sepsis Screen. Triage Assessment: 01:31 General: Appears in no apparent distress, Behavior is appropriate for age, cooperative. ko2 Pain: Location: right mid back. HIV screening NA for this visit Offered previously. Neurological: Level of Consciousness is awake, alert. Respiratory: Airway is patent Respiratory effort is even, unlabored, Respiratory pattern is regular, symmetrical. Derm: Skin is normal. Musculoskeletal: Range of motion intact in all extremities. Historical: - Allergies: Motrin (Upset stomach); Risperdal (Swelling); TETRACYCLINES (Rash); Tramadol HCl; - Home Meds: 1. Combivent Inhl four times a day 2. Flexeril 10 mg Oral tab 3 times per day 3. Klonopin 1 mg Oral tab 1 tab 2 times per day 4. levothyroxine 125 mcg Oral tab 1 tab once daily 5. Protonix 40 mg Oral TbEC 1 tab once daily 6. Remeron 30 mg Oral tab 1 tab once daily 7. Topamax 200 mg Oral tab 1 tab nightly 8. Ventolin Rotahaler/Rotacaps Inhl 9. Vitamin D Oral 1000 unit daily 10. Invega 3 mg Oral tr24 1 tab at bedtime 11. Benadryl 50 mg Oral cap at bedtime as needed - PMHx: Anxiety; Degenerative disc disease; Depression; GERD; Hypothyroidism; Kidney stones; muscle spasms; Schizophrenia; Sciatica; - PSHx: Shoulder Arthroplasty, Left; stomach surgery for reflux disease; Cholecystectomy; Hysterectomy; Hernia repair- Umbilical; left foot surgery; right kidney stent; Lithotripsy; Cataract Surgery- Left; - Social history: Smoking status: Patient uses tobacco products, light tobacco smoker. No barriers to communication noted, The patient speaks fluent Danish, Speaks appropriately for age. - Family history: Not pertinent. - : The pt / caregiver states he / she is not on anticoagulants. Home medication list is obtained from the patient. - Exposure Risk Screening:: None identified. Screenin:35 Screening information is obtained from the patient. Fall risk: No risks identified. ko2 Assistance ADL's: requires no assistance with activities of daily living. Abuse/DV Screen: The patient / caregiver reports he/she is: not in a situation that causes fear, pain or injury. Nutritional screening: No deficits noted. Advance Directives: Currently, there is no health care proxy. There is no active DNR order. There is no living will. There is no Power of Pipe Installer. home support is adequate. Assessment: 02:59 General: Appears in no apparent distress, comfortable, Behavior is appropriate for age, ko2 cooperative. Neurological: Level of Consciousness is awake, alert. Respiratory: Airway is patent Respiratory effort is even, unlabored. Derm: Skin is normal. 03:52 General: Appears in no apparent distress, Behavior is cooperative, pleasant. mv5 Neurological: Level of Consciousness is awake, alert, Oriented to person, place, time. Respiratory: Airway is patent Respiratory effort is even, unlabored. Derm: Skin is normal. Vital Signs: 01:32 BP 126 / 68; Pulse 95; Resp 16; Temp 98.7(O); Pulse Ox 96% ; Weight 84.37 kg; Height 5 ko2 ft. 3 in. (160.02 cm); Pain 6/10; 03:57 BP 129 / 85; Pulse 87; Resp 16; Pulse Ox 96% ; mv5 01:32 Body Mass Index 32.95 (84.37 kg, 160.02 cm) ko2 Vitals: 01:32 Log In Time: June 26, 2016 at 01:16. ko2 ED Course: 01:18 Patient visited by Christal Ferreira. gjb 01:18 Patient moved to Waiting gjb 01:27 Triage Initiated ko2 02:59 Urine Culture Sent. ko2 02:59 Urinalysis Sent. ko2 02:59 HCG,Serum Qualitative Sent. ko2 02:59 Lipase Sent. ko2 02:59 Amylase Sent. ko2 02:59 Liver Profile Sent. ko2 02:59 MED Profile Sent. ko2 02:59 CBC with Diff Sent. ko2 03:00 Patient visited by Dora Lester RN. ko2 03:09 CT ABD & PELVIS: No Contrast Returned. EDMS 03:13 [facility] Payment Agreement was scanned into [employer]TR[employer] and attached to record. pm4 03:35 Lupe Perez,RN is Primary Nurse. may 03:35 Patient moved to May 03:39 Andry Reyes DO is Attending Physician. cs11 03:40 Patient visited by Andry Reyes DO. cs11 03:52 The patient / caregiver is instructed regarding the plan of care and ED course. mv5 03:52 No IV's were initiated during this patient's visit. No procedures done that require mv5 assistance. 15:29 T-Sheet-- Draft Copy was scanned into [employer] and attached to record. gb 15:29 Radiology Report was scanned into [employer]TR[employer] and attached to record. gb 06/27 14:12 Radiology Report was scanned into [employer]TR[employer] and attached to record. gb Administered Medications: 06/26 03:51 Drug: Ciprofloxacin 500 mg [ciprofloxacin 500 mg tablet (1 tabs)] Route: PO; mv5 03:58 Follow up: Response: No Adverse Reaction mv5 Order Results: Lab Order: CBC with Diff; SPEC'M 06/26/16 02:58 Test: WHITE BLOOD COUNT; Value: 6.9; Range: 4.0-10.0; Units: K/mm3; Status: F Test: RED BLOOD COUNT; Value: 4.69; Range: 4.00-5.40; Units: M/mm3; Status: F Test: HEMOGLOBIN; Value: 14.1; Range: 12.0-16.0; Units: g/dl; Status: F Test: HEMATOCRIT; Value: 43.9; Range: 36.0-47.0; Units: %; Status: F Test: MEAN CORPUSCULAR VOLUME; Value: 93.6; Range: 80.0-96.0; Units: fl; Status: F Test: MEAN CORPUSCULAR HEMOGLOBIN; Value: 30.1; Range: 27.0-33.0; Units: pg; Status: F Test: MEAN CORPUSCULAR HGB CONC; Value: 32.1; Range: 32.0-36.5; Units: g/dl; Status: F Test: RED CELL DISTRIBUTION WIDTH; Value: 12.5; Range: 11.5-14.5; Units: %; Status: F Test: PLATELET COUNT, AUTOMATED; Value: 180; Range: 150-450; Units: k/mm3; Status: F Test: NEUTROPHILS %; Value: 51.6; Range: 36.0-66.0; Units: %; Status: F Test: LYMPH %; Value: 30.7; Range: 24.0-44.0; Units: %; Status: F Test: MONO %; Value: 7.9; Range: 0.0-5.0; Abnormal: Above high normal; Units: %; Status: F Test: EOS %; Value: 6.1; Range: 0.0-3.0; Abnormal: Above high normal; Units: %; Status: F Test: BASO %; Value: 1.3; Range: 0.0-1.0; Abnormal: Above high normal; Units: %; Status: F Test: LARGE UNSTAINED CELL %; Value: 2.5; Range: 0.0-4.0; Units: %; Status: F Test: NEUTROPHILS #; Value: 3.8; Range: 1.8-7.7; Units: K/mm3; Status: F Test: LYMPH #; Value: 2.4; Range: 1.5-4.5; Units: K/mm3; Status: F Test: MONO #; Value: 0.6; Range: 0.0-0.8; Units: K/mm3; Status: F Test: EOS #; Value: 0.4; Range: 0.0-0.50; Units: K/mm3; Status: F Test: BASO #; Value: 0.1; Range: 0.0-0.2; Units: K/mm3; Status: F Test: LARGE UNSTAINED CELL #; Value: 0.2; Range: 0.0-0.4; Units: K/mm3; Status: F Lab Order: MED Profile; MALA'Aguilar 06/26/16 02:58 Test: GLUCOSE, FASTING; Value: 112; Range: 70-105; Abnormal: Above high normal; Units: MG/DL; Status: F Test: BLOOD UREA NITROGEN; Value: 9; Range: 7-18; Units: MG/DL; Status: F Test: CREATININE FOR GFR; Value: 1.23; Range: 0.55-1.02; Abnormal: Above high normal; Units: MG/DL; Status: F Test: SODIUM LEVEL; Range: 136-145; Units: MEQ/L; Status: I Test: POTASSIUM SERUM; Range: 3.5-5.1; Units: MEQ/L; Status: I Test: CHLORIDE LEVEL; Range: 98-107; Units: MEQ/L; Status: I Test: CARBON DIOXIDE LEVEL; Range: 21-32; Units: MEQ/L; Status: I Test: ANION GAP; Range: 8-16; Units: MEQ/L; Status: I Test: CALCIUM LEVEL; Range: 8.5-10.1; Units: MG/DL; Status: I Test: GLOMERULAR FILTRATION RATE; Value: 47.7; Range: >51; Abnormal: Below low normal; Status: F Test: SODIUM LEVEL; Value: 144; Range: 136-145; Units: MEQ/L; Status: F Test: POTASSIUM SERUM; Value: 3.7; Range: 3.5-5.1; Units: MEQ/L; Status: F Test: CHLORIDE LEVEL; Value: 111; Range: 98-107; Abnormal: Above high normal; Units: MEQ/L; Status: F Test: CARBON DIOXIDE LEVEL; Value: 24; Range: 21-32; Units: MEQ/L; Status: F Test: ANION GAP; Value: 9; Range: 8-16; Units: MEQ/L; Status: F Test: CALCIUM LEVEL; Value: 8.2; Range: 8.5-10.1; Abnormal: Below low normal; Units: MG/DL; Status: F Test Note: ; Units are mL/min/1.73 m2 Chronic Kidney Disease Staging per NKF: Stage I & II GFR >=60 Normal to Mildly Decreased Stage III GFR 30-59 Moderately Decreased Stage IV GFR 15-29 Severely Decreased Stage V GFR <15 Very Little GFR Left ESRD GFR <15 on 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 Lab Order: Liver Profile; [facility] 06/26/16 02:58 Test: AST/SGOT; Value: 30; Range: 15-37; Units: U/L; Status: F Test: ALT/SGPT; Value: 53; Range: 12-78; Units: U/L; Status: F Test: ALKALINE PHOSPHATASE; Value: 116; Range: 45-117; Units: U/L; Status: F Test: BILIRUBIN,TOTAL; Value: 0.2; Range: 0.2-1.0; Units: MG/DL; Status: F Test: BILIRUBIN,DIRECT; Value: < 0.1; Range: 0.0-0.2; Units: MG/DL; Status: F Test: TOTAL PROTEIN; Value: 7.4; Range: 6.4-8.2; Units: GM/DL; Status: F Test: ALBUMIN; Value: 3.8; Range: 3.2-5.2; Units: GM/DL; Status: F Test: ALBUMIN/GLOBULIN RATIO; Value: 1.06; Range: 1.00-1.93; Status: F Lab Order: Amylase; [facility] 06/26/16 02:58 Test: AMYLASE; Value: 41; Range: 25-115; Units: U/L; Status: F Lab Order: Lipase; 06/26/16 02:58 Test: LIPASE; Value: 170; Range: 73-393; Units: U/L; Status: F Lab Order: HCG,Serum Qualitative; 06/26/16 02:58 Test: HCG, SERUM QUALITATIVE; Value: NEGATIVE; Range: NEGATIVE; Status: F Lab Order: Urinalysis; [facility] 06/26/16 02:58 Test: APPEARANCE, URINE; Value: CLEAR; Range: CLEAR; Status: F Test: COLOR, URINE; Value: STRAW; Range: YELLOW; Status: F Test: PH,URINE; Value: 6.0; Range: 5.0-9.0; Units: UNITS; Status: F Test: SPECIFIC GRAVITY URINE AUTO; Value: 1.002; Range: 1.002-1.035; Status: F Test: PROTEIN, URINE AUTO; Value: NEGATIVE; Range: NEGATIVE; Units: mg/dL; Status: F Test: GLUCOSE, URINE (UA) AUTO; Value: NEGATIVE; Range: NEGATIVE; Units: mg/dL; Status: F Test: KETONE, URINE AUTO; Value: NEGATIVE; Range: NEGATIVE; Units: mg/dL; Status: F Test: UROBILINOGEN, URINE AUTO; Value: 0.2; Range: 0.0-2.0; Units: mg/dL; Status: F Test: BILIRUBIN, URINE AUTO; Value: NEGATIVE; Range: NEGATIVE; Status: F Test: NITRITE, URINE AUTO; Value: NEGATIVE; Range: NEGATIVE; Status: F Test: LEUKOCYTE ESTERASE, URINE AUTO; Value: 3+; Range: NEGATIVE; Abnormal: Above high normal; Status: F Test: BLOOD, URINE BLOOD; Value: NEGATIVE; Range: NEGATIVE; Status: F Test: WBC, URINE AUTO; Value: 14; Range: 0-3; Abnormal: Above high normal; Units: /HPF; Status: F Test: RBC, URINE AUTO; Value: 1; Range: 0-3; Units: /HPF; Status: F Test: BACTERIA, URINE AUTO; Value: NEGATIVE; Range: NEGATIVE; Status: F Test: SQUAMOUS EPITHELIAL CELL UR AU; Value: 2; Range: 0-6; Units: /HPF; Status: F Test: HYALINE CAST, URINE AUTO; Value: 0; Range: 0-1; Units: /LPF; Status: F Lab Order: Urine Culture; SPEC'M 06/26/16 02:58 Test: URINE CULTURE; Value: <EXTERNAL COMMENT eCWMed> FULL REPORT IN LAB NOTES (eCW and Medent).; Status: F Test: URINE CULTURE; Value: URINE CULTURE RESULT NO GROWTH; Status: F Radiology Order: CT ABD & PELVIS: No Contrast Test: CT ABD & PELVIS: No Contrast REASON FOR EXAMINATION: Renal colic; ; CLINICAL HISTORY:; TECHNIQUE: Multiple axial and coronal CT images were obtained through the abdomen and pelvis without; administration of oral or IV contrast material.; COMMENTS:; Comparison is made to the prior exam performed on 06/03/2016.; The liver is moderately enlarged with decreased attenuation without mass or defect. There is no intra; or extrahepatic biliary ductal dilatation. The spleen is normal. The gallbladder is surgically absen; t. The pancreas is of normal contour and attenuation characteristics. There is no evidence of adrenal; mass.; Chronic atrophy of the right kidney. Mild fullness of the right collecting system. Diffuse thickening; of the bladder. Surgical changes of the stomach.; There is no evidence for appendicitis. There is no bowel wall thickening. No evidence for small or la; rge bowel obstruction. There is no evidence of abdominal ascites or lymphadenopathy.; There is no evidence of intrinsic or extrinsic bladder mass. There is no pelvic ascites or lymphadeno; davide.; Images of the lung bases show no evidence of pleural or parenchymal mass. There are no pleural effusi; ons.; The bony structures are free of lytic or blastic lesions.; IMPRESSION:; Chronic atrophy of the right kidney.; Right urothelial thickening suggestive of an ascending urinary tract infection.; Thickened urinary bladder.; No obstructing stone is seen.; Constipation.; Thank you for your kind referral of this patient.; ; Outcome: 03:46 Discharge ordered by Provider. cs11 03:57 Discharge Assessment: Patient awake, alert and oriented x 3. No cognitive and/or mv5 functional deficits noted. Patient verbalized understanding of disposition instructions. patient administered narcotics - no. The following High Risk Discharge criteria are identified: None. Discharged to home ambulatory, with family. Condition: stable. Demonstrated understanding of Pt was receptive of discharge instructions/ teaching. CT Study completed. Property sent home with patient. 03:59 Patient left the ED. mv5 Signatures: Dispatcher [employer] EDMS Milady Stout, RN Ying Parmar, Reg Reg gb Andry Reyes DO DO cs11 Dora LesterRN LUIS perez2 Christal Ferreira Paul, Reg Reg pm4 Lupe Perez RN RN mv5 Chart Complete MTDD
--- NOTE | 2016-06-28 05:00 | EDDOCDS ---
Physician Documentation [facility] Name: Gabbi Guzman Age: 60 yrs Sex: Female : 1955 Arrival Date: 06/26/2016 Time: 01:16 Bed 11 Private MD: Disposition: 06/26/16 03:46 Discharged to Home/Self Care. Impression: Urinary tract infection, site not specified. - Condition is Stable. - Prescriptions for Cipro 500 mg Oral Tablet - take 1 tablet by ORAL route every 12 hours; 10 tablet. - Medication Reconciliation, Local Pharmacy Hours form. - Follow up: Private Physician; When: Call to arrange an appointment; Reason: Recheck today's complaints. - Problem is an ongoing problem. - Symptoms have improved. Historical: - Allergies: Motrin (Upset stomach); Risperdal (Swelling); TETRACYCLINES (Rash); Tramadol HCl; - Home Meds: 1. Combivent Inhl four times a day 2. Flexeril 10 mg Oral tab 3 times per day 3. Klonopin 1 mg Oral tab 1 tab 2 times per day 4. levothyroxine 125 mcg Oral tab 1 tab once daily 5. Protonix 40 mg Oral TbEC 1 tab once daily 6. Remeron 30 mg Oral tab 1 tab once daily 7. Topamax 200 mg Oral tab 1 tab nightly 8. Ventolin Rotahaler/Rotacaps Inhl 9. Vitamin D Oral 1000 unit daily 10. Invega 3 mg Oral tr24 1 tab at bedtime 11. Benadryl 50 mg Oral cap at bedtime as needed - PMHx: Anxiety; Degenerative disc disease; Depression; GERD; Hypothyroidism; Kidney stones; muscle spasms; Schizophrenia; Sciatica; - PSHx: Shoulder Arthroplasty, Left; stomach surgery for reflux disease; Cholecystectomy; Hysterectomy; Hernia repair- Umbilical; left foot surgery; right kidney stent; Lithotripsy; Cataract Surgery- Left; - Social history: Smoking status: Patient uses tobacco products, light tobacco smoker. No barriers to communication noted, The patient speaks fluent Japanese, Speaks appropriately for age. - Family history: Not pertinent. - : The pt / caregiver states he / she is not on anticoagulants. Home medication list is obtained from the patient. - Exposure Risk Screening:: None identified. Vital Signs: 06/26 01:32 BP 126 / 68; Pulse 95; Resp 16; Temp 98.7(O); Pulse Ox 96% ; Weight 84.37 kg / 186 lbs; ko2 Height 5 ft. 3 in. (160.02 cm); Pain 6/10; 03:57 BP 129 / 85; Pulse 87; Resp 16; Pulse Ox 96% ; mv5 01:32 Body Mass Index 32.95 (84.37 kg, 160.02 cm) ko2 MDM: 02:18 CT ABD & PELVIS: No Contrast Ordered. EDMS 02:18 CBC with Diff Ordered. EDMS 02:18 MED Profile Ordered. EDMS 02:18 Liver Profile Ordered. EDMS 02:18 Amylase Ordered. EDMS 02:18 Lipase Ordered. EDMS 02:18 HCG,Serum Qualitative Ordered. EDMS 02:18 Urinalysis Ordered. EDMS 02:19 Urine Culture Ordered. EDMS 03:13 [facility] Payment Agreement was scanned into iCAD and attached to record. pm4 03:42 CBC with Diff Reviewed. cs11 03:42 Urinalysis Reviewed. cs11 03:42 HCG,Serum Qualitative Reviewed. cs11 03:42 CT ABD & PELVIS: No Contrast Reviewed. cs11 03:45 MED Profile Reviewed. cs11 03:45 Liver Profile Reviewed. cs11 03:45 Amylase Reviewed. cs11 03:45 Lipase Reviewed. cs11 03:45 HCG,Serum Qualitative Reviewed. cs11 03:47 Ciprofloxacin 500 mg PO once ordered. cs11 03:48 Financial registration complete. pm4 15:29 T-Sheet-- Draft Copy was scanned into iCAD and attached to record. gb 15:29 Radiology Report was scanned into iCAD and attached to record. 06/27 14:12 Radiology Report was scanned into iCAD and attached to record. gb Administered Medications: 06/26 03:51 Drug: Ciprofloxacin 500 mg [ciprofloxacin 500 mg tablet (1 tabs)] Route: PO; mv5 03:58 Follow up: Response: No Adverse Reaction mv5 Signatures: Dispatcher [employer] EDMS Ying Mock, Reg Reg gb Andry Reyes, DO cs11 Dora LesterRN RN ko2 Osbaldo Mcfarlane, Reg Reg pm4 Lupe Perez,RN RN mv5 The chart was reviewed and I authenticate all verbal orders and agree with the evaluation and treatment provided.Attachments: 03:13 [facility] Payment Agreement pm4 15:29 T-Sheet-- Draft Copy gb Chart Complete MTDD
--- NOTE | 2016-06-28 05:00 | EDDOCDS ---
Physician Documentation [facility] Name: Gabbi Guzman Age: 60 yrs Sex: Female : 1955 Arrival Date: 06/26/2016 Time: 01:16 Bed 11 Private MD: Disposition: 06/26/16 03:46 Discharged to Home/Self Care. Impression: Urinary tract infection, site not specified. - Condition is Stable. - Prescriptions for Cipro 500 mg Oral Tablet - take 1 tablet by ORAL route every 12 hours; 10 tablet. - Medication Reconciliation, Local Pharmacy Hours form. - Follow up: Private Physician; When: Call to arrange an appointment; Reason: Recheck today's complaints. - Problem is an ongoing problem. - Symptoms have improved. Historical: - Allergies: Motrin (Upset stomach); Risperdal (Swelling); TETRACYCLINES (Rash); Tramadol HCl; - Home Meds: 1. Combivent Inhl four times a day 2. Flexeril 10 mg Oral tab 3 times per day 3. Klonopin 1 mg Oral tab 1 tab 2 times per day 4. levothyroxine 125 mcg Oral tab 1 tab once daily 5. Protonix 40 mg Oral TbEC 1 tab once daily 6. Remeron 30 mg Oral tab 1 tab once daily 7. Topamax 200 mg Oral tab 1 tab nightly 8. Ventolin Rotahaler/Rotacaps Inhl 9. Vitamin D Oral 1000 unit daily 10. Invega 3 mg Oral tr24 1 tab at bedtime 11. Benadryl 50 mg Oral cap at bedtime as needed - PMHx: Anxiety; Degenerative disc disease; Depression; GERD; Hypothyroidism; Kidney stones; muscle spasms; Schizophrenia; Sciatica; - PSHx: Shoulder Arthroplasty, Left; stomach surgery for reflux disease; Cholecystectomy; Hysterectomy; Hernia repair- Umbilical; left foot surgery; right kidney stent; Lithotripsy; Cataract Surgery- Left; - Social history: Smoking status: Patient uses tobacco products, light tobacco smoker. No barriers to communication noted, The patient speaks fluent Azeri, Speaks appropriately for age. - Family history: Not pertinent. - : The pt / caregiver states he / she is not on anticoagulants. Home medication list is obtained from the patient. - Exposure Risk Screening:: None identified. Vital Signs: 06/26 01:32 BP 126 / 68; Pulse 95; Resp 16; Temp 98.7(O); Pulse Ox 96% ; Weight 84.37 kg / 186 lbs; ko2 Height 5 ft. 3 in. (160.02 cm); Pain 6/10; 03:57 BP 129 / 85; Pulse 87; Resp 16; Pulse Ox 96% ; mv5 01:32 Body Mass Index 32.95 (84.37 kg, 160.02 cm) ko2 MDM: 02:18 CT ABD & PELVIS: No Contrast Ordered. EDMS 02:18 CBC with Diff Ordered. EDMS 02:18 MED Profile Ordered. EDMS 02:18 Liver Profile Ordered. EDMS 02:18 Amylase Ordered. EDMS 02:18 Lipase Ordered. EDMS 02:18 HCG,Serum Qualitative Ordered. EDMS 02:18 Urinalysis Ordered. EDMS 02:19 Urine Culture Ordered. EDMS 03:13 [facility] Payment Agreement was scanned into [employer] and attached to record. pm4 03:42 CBC with Diff Reviewed. cs11 03:42 Urinalysis Reviewed. cs11 03:42 HCG,Serum Qualitative Reviewed. cs11 03:42 CT ABD & PELVIS: No Contrast Reviewed. cs11 03:45 MED Profile Reviewed. cs11 03:45 Liver Profile Reviewed. cs11 03:45 Amylase Reviewed. cs11 03:45 Lipase Reviewed. cs11 03:45 HCG,Serum Qualitative Reviewed. cs11 03:47 Ciprofloxacin 500 mg PO once ordered. cs11 03:48 Financial registration complete. pm4 15:29 T-Sheet-- Draft Copy was scanned into [employer] and attached to record. gb 15:29 Radiology Report was scanned into [employer] and attached to record. 06/27 14:12 Radiology Report was scanned into [employer] and attached to record. gb Administered Medications: 06/26 03:51 Drug: Ciprofloxacin 500 mg [ciprofloxacin 500 mg tablet (1 tabs)] Route: PO; mv5 03:58 Follow up: Response: No Adverse Reaction mv5 Signatures: Dispatcher [employer] EDMS Ying Mock, Reg Reg gb Andry Reyes, DO cs11 Dora LesterRN RN ko2 Osbaldo Mcfarlane, Reg Reg pm4 Lupe Perez,RN RN mv5 The chart was reviewed and I authenticate all verbal orders and agree with the evaluation and treatment provided.Attachments: 03:13 [facility] Payment Agreement pm4 15:29 T-Sheet-- Draft Copy gb Chart Complete MTDD
== END 2016-06-26 03:59 | disposition home or self-care (01) ==
LOC: M ED 01:16
DX: N39.0 Urinary tract infection, site not specified (principal); F41.9 Anxiety disorder, unspecified; M51.9 Unspecified thoracic, thoracolumbar and lumbosacral intervertebral disc disorder; F32.9 Major depressive disorder, single episode, unspecified; K21.9 Gastro-esophageal reflux disease without esophagitis; E03.9 Hypothyroidism, unspecified; M54.30 Sciatica, unspecified side; F20.9 Schizophrenia, unspecified; Z87.442 Personal history of urinary calculi; M62.838 Other muscle spasm; Z96.0 Presence of urogenital implants; Z96.612 Presence of left artificial shoulder joint; Z72.0 Tobacco use; Z79.899 Other long term (current) drug therapy; Z88.6 Allergy status to analgesic agent; Z88.1 Allergy status to other antibiotic agents; Z88.5 Allergy status to narcotic agent; Z88.8 Allergy status to other drugs, medicaments and biological substances

== ENCOUNTER → 2016-07-02 | Outpatient (CLI) | payer OTHER ==
--- NOTE | 2016-07-02 23:22 | ECWPNPC ---
PATIENT NAME: MAGALY CORTEZ : 1955 GENDER: FEMALE VISIT DATE: 07/02/2016 DISCHARGE DATE: 07/02/16 1107 VISIT LOCKED DATE TIME: PHYSICIAN: VAN CLAYTON RESOURCE: VAN CLAYTON REASON FOR APPOINTMENT 1. FOLLOW UP- INCREASED BACK PAIN HISTORY OF PRESENT ILLNESS HISTORY OF PRESENT ILLNESS: HERE FOR F/U OF CHRONIC LBP.REPORTING INCREASE IN LOW BACK PAIN LATELY.STATES SHE IS DOING MORE HOUSE WORK.DISCUSSED MEDICATION SCHEDULE AT LENGTH.CURRENTLY GOING TO BED AT 5PM AND AWAKENING AT 1 AM DUE TO PAIN AND TAKES A PAIN PILL.RECENTLY TAKEN OFF ZYPREXA AND PUT ON SEROQUEL.HAD KIDNEY STONE REMOVED LAST MONTH.RATING PAIN VAS 8/10. FALL RISK SCREENING: SCREENING :NO FALLS IN THE PAST YEAR CURRENT MEDICATIONS TAKING LIDOCAINE HCL JELLY LONG-TERM 2 % JELLY 5 ML1 APPLICATION TO AFFECTED AREA NEEDED INTRAVESICALLY TIME AT CYSTOSCOPY TAKING TOPAMAX 200 MG TABLET 1 TABLET ORALLY ONCE A DAY TAKING REMERON 30 MG TABLET 1 TABLET BEFORE BEDTIME IN THE EVENING ORALLY ONCE A DAY TAKING SYNTHROID 125 MCG TABLET 1 TABLET ORALLY ONCE A DAY TAKING KLONOPIN 1 MG TABLET 1 TABLET ORALLY TWICE DAILY TAKING VENTOLIN HFA 108 (90 BASE) MCG/ACT AEROSOL SOLUTION 2 PUFFS NEEDED INHALATION EVERY 4 HRS TAKING VITAMIN D 1000 UNIT TABLET 1 CAPSULE ORALLY ONCE DAILY TAKING PANTOPRAZOLE SODIUM 40 MG TABLET DELAYED RELEASE 1 TABLET ORALLY ONCE A DAY TAKING COMBIVENT 120-20 MCG/ACT AEROSOL 1 PUFFS INHALATION FOUR TIMES A DAY TAKING SEROQUEL 400 MG TABLET 1 TABLET AT BEDTIME ORALLY ONCE A DAY TAKING HYDROCODONE-ACETAMINOPHEN 7.5-325 MG TABLET 1 ORALLY Q8H PRN MDD3 TAKING CYCLOBENZAPRINE HCL 10 MG TABLET 1 TABLET ORALLY THREE TIMES A DAY PRN FOR SEVERE MUSCLE SPASM PAIN NOT-TAKING PERCOCET 5-325 MG TABLET 1 TABLET NEEDED ORALLY EVERY 6 HRS, MDD 4 NOT-TAKING FLOMAX 0.4 MG CAPSULE 1 CAPSULE ORALLY ONCE A DAY NOT-TAKING HYDROCODONE-ACETAMINOPHEN 7.5-325 MG TABLET 1 ORALLY EVERY 8HRS PRN MDD3 NOT-TAKING FLOMAX 0.4 MG CAPSULE 1 CAPSULE ORALLY ONCE A DAY NOT-TAKING ZYPREXA 5 MG TABLET 1 TABLET ORALLY ONCE A DAY NOT-TAKING GEODON 40 MG CAPSULE 1 CAPSULE WITH FOOD ORALLY TWICE A DAY NOT-TAKING BREO ELLIPTA 100-25 MCG/INH AEROSOL POWDER BREATH ACTIVATED 1 PUFF INHALATION ONCE A DAY NOT-TAKING INVEGA 3 MG TABLET EXTENDED RELEASE 24 HOUR 1 TABLET ORALLY ONCE A DAY NOT-TAKING PRILOSEC 20 MG CAPSULE DELAYED RELEASE 1 CAPSULE ORALLY TWICE DAILY NOT-TAKING ESTRACE 0.1 MG/GM CREAM 0.5 GRAMS VAGINAL 3X PER WEEK MEDICATION LIST REVIEWED AND RECONCILED WITH THE PATIENT PAST MEDICAL HISTORY HYPOTHYROID ACID REFLUX ESOPHAGEAL REFLUX COPD SCHIZOAFFECTIVE DISORDER LOW BACK PAIN LEFT LEG PAIN SACROILIAC JOINT PAIN KIDNEY STONES ALLERGIES TETRACYCLINE HCL: RASH, VOMITING: ALLERGY MOTRIN: NAUSEA: SIDE EFFECTS RISPERDAL: ANAPHYLAXIS: ALLERGY TRAMADOL HCL: RASH: SIDE EFFECTS SEROQUEL: RASH: SIDE EFFECTS SOCIAL HISTORY GENERAL: TOBACCO USE ARE YOU A:CURRENT SMOKER 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 NEW PATIENT PAIN DIARY TODAY'S VISITNOTES FROM 0-10, WHAT LEVEL IS YOUR PAIN TODAY?0 PAIN CLINIC PFS, CLERGY, PUBLIC HEALTH REFERRALS PFS REFERRAL NEEDED?NO CLERGY REFERRAL NEEDED?NO PUBLIC HEALTH REFERRAL NEEDED?NO WAS THE PROVIDER NOTIFIED OF ANY PERTINENT INFO?NO PFS REFERRAL NEEDED?NO CLERGY REFERRAL NEEDED?NO PUBLIC HEALTH REFERRAL NEEDED?NO WAS THE PROVIDER NOTIFIED OF ANY PERTINENT INFO?NO REVIEW OF SYSTEMS CONSTITUTIONAL: ANY CHANGE IN YOUR MEDICAL CONDITION? NO . CHILLS NO . FEVER NO . INFECTION: DO YOU HAVE NEW INFECTIONS? NO . DO YOU HAVE HISTORY OF MRSA? NO . MUSCULOSKELETAL: ANY NEW PATTERNS OF PAIN OR NUMBNESS? NO . GASTROENTEROLOGY: ANY NEW CHANGE IN BOWEL CONTROL? NO . GENITOURINARY: ANY NEW CHANGE IN BLADDER CONTROL? NO . IS THERE A CHANCE YOU COULD BE ? NO . HEMATOLOGY/LYMPH: DO YOU TAKE ANY BLOOD THINNERS? (FOR EXAMPLE- COUMADIN, PLAVIX, AGGRENOX, PLATEL, PRADAXA, OR XARELTO) NO . WHEN WAS YOUR LAST DOSE? DATE: TIME: . NEUROLOGY: HAVE YOU FALLEN IN THE PAST 6 MONTHS? NO . ANY NEW EXTREMITY NUMBNESS OR WEAKNESS? NO . CARDIOLOGY: DO YOU HAVE A PACEMAKER OR DEFIBRILLATOR? NO . RESPIRATORY: HAVE YOU BEEN SICK IN THE PAST WEEK? NO . FEVER NO . FLU LIKE SYMPTOMS? NO . COUGH NO . INTEGUMENTARY: DO YOU HAVE ANY RASHES OR OPEN SORES? NO . ALLERGIC/IMMUNO: ARE YOU ALLERGIC TO SHELLFISH OR IV DYE? NO . ANY NEW ALLERGIES? NO . PSYCHIATRIC: DO YOU HAVE THOUGHTS OF HURTING YOURSELF OR SOMEONE ELSE? NO . ARE YOU ABUSED, NEGLECTED, OR IN AN UNSAFE ENVIRONMENT? NO . ENDOCRINOLOGY: ARE YOU DIABETIC? NO . OTHER: DO YOU NEED ANY PRESCRIPTIONS? YES . IF YES, PLEASE LIST: ____FLEXARIL HYDROCODONE . ANY NEW PROBLEMS WITH YOUR MEDICATIONS? NO . WHEN DID YOU LAST EAT? ____ . WHEN DID YOU LAST DRINK? ____ . WHAT DID YOU LAST DRINK? ____ . NAME OF PERSON DRIVING YOU HOME? ____ . DO YOU HAVE ANY OTHER QUESTIONS OR CONCERNS NO . REVIEWED BY: PROVIDER: VAN ROCHA . VITAL SIGNS WT 192 LBS, HT 63 IN, BMI 34.01 INDEX, BP 144/79 MM HG, HR 84 /MIN, RR 16 /MIN, TEMP 96.2 F, OXYGEN SAT % 98%, NA INITIALS SC 10:30, REVIEWED BY: KG. EXAMINATION GENERAL EXAMINATION: LUNGS:LUNG SOUNDS ARE CLEAR. HEART:HEART RATE REGULAR. MUSCULOSKELETAL:*. MUSCULOSKELETAL:*, MUSCLE STRENGTH TESTING 5/5 BILATERAL. PALPATION: POSITIVE FOR PAIN OVER L/S SPINE. POSITIVE FOR PAIN OVER L/S PARSPINALS L>R..ROJM SPINE W INCREASE PAIN W MINIMAL MOVEMENT.. DIAGNOSTIC: . DIAGNOSTIC:MRI L/S SPINE-12/[id number] DEGENERATIVE CHANGES W MILD STENOSIS. ASSESSMENTS CHRONIC BILATERAL LOW BACK PAIN WITH BILATERAL SCIATICA - M54.42 (PRIMARY) TREATMENT CHRONIC BILATERAL LOW BACK PAIN WITH BILATERAL SCIATICA REFILL HYDROCODONE-ACETAMINOPHEN TABLET, 7.5-325 MG, 1, ORALLY, Q8H PRN MDD3, 30 DAY(S), 90, REFILLS 0 REFILL CYCLOBENZAPRINE HCL TABLET, 5 MG, 1 TABLET, ORALLY, THREE TIMES A DAY PRN FOR SEVERE MUSCLE SPASM PAIN, 30 DAY(S), 45, REFILLS 2 PROCEDURE CODES FA211 ESTABILISHED PATIENT [facility] FAC[facility] CHARGE DISPOSITION & COMMUNICATION FOLLOW UP 6 WEEKS ELECTRONICALLY SIGNED BY AJ MORATAYA ON 07/02/2016 AT 11:26 AM EST DISCLAIMER : THIS IS A VISIT SUMMARY EXTRACTED FROM THE [email or web address] CHART. IT IS NOT A COPY OF THE [employer] PROGRESS NOTE. PHILLIP
== END ==
LOC: M PAIN 10:40
PROVIDERS: ATTEND Nurse Practitioner Family
DX: M54.42 Lumbago with sciatica, left side (principal); G89.29 Other chronic pain; Z79.891 Long term (current) use of opiate analgesic; Z79.899 Other long term (current) drug therapy; E03.9 Hypothyroidism, unspecified; Z88.8 Allergy status to other drugs, medicaments and biological substances

== ENCOUNTER → 2016-07-22 | Outpatient (REF) | payer OTHER | LOC: M SMT 16:53 | PROVIDERS: ATTEND Urology | DX: N20.0 Calculus of kidney (principal) ==

== ENCOUNTER → 2016-08-20 | Outpatient (CLI) | payer OTHER ==
--- NOTE | 2016-08-29 00:13 | ECWPNPC ---
PATIENT NAME: MAGALY CORTEZ : 1955 GENDER: FEMALE VISIT DATE: 08/20/2016 DISCHARGE DATE: 08/20/16 1138 VISIT LOCKED DATE TIME: PHYSICIAN: VAN CLAYTON RESOURCE: VAN CLAYTON REASON FOR APPOINTMENT 1. BACK HISTORY OF PRESENT ILLNESS HISTORY OF PRESENT ILLNESS: HERE FOR F/U OF CHRONIC LBP.RATING VAS 8/10.CONTINUES W USE OF HYDROCODONE 7.5MG/325 PRN FOR SEVERE PAIN W MDD3.ALSO USING FLEXERIL 10MG PRN FOR SEVERE MUSCLE SPASM.REPORTS THAT CURRENT MEDICINE EFFECTIVE AT REDUCING PAIN AND KEEPING HER FUNCTIONAL.DISCUSSED MEDICINE AND TREATMENT OPTIONS. PAIN THE PATIENT DESCRIBES THE PAIN... THE PATIENT DESCRIBES THE PAIN... THE PATIENT DESCRIBES THE PAIN... THE PATIENT DESCRIBES THE PAIN... THE PATIENT DESCRIBES THE PAIN... THE PATIENT DESCRIBES THE PAIN... FALL RISK SCREENING: SCREENING :NO FALLS IN THE PAST YEAR CURRENT MEDICATIONS TAKING TOPAMAX 200 MG TABLET 1 TABLET ORALLY ONCE A DAY TAKING REMERON 30 MG TABLET 1 TABLET BEFORE BEDTIME IN THE EVENING ORALLY ONCE A DAY TAKING SYNTHROID 125 MCG TABLET 1 TABLET ORALLY ONCE A DAY TAKING KLONOPIN 1 MG TABLET 1 TABLET ORALLY PRN TID TAKING VENTOLIN HFA 108 (90 BASE) MCG/ACT AEROSOL SOLUTION 2 PUFFS NEEDED INHALATION EVERY 4 HRS TAKING VITAMIN D 1000 UNIT TABLET 1 CAPSULE ORALLY ONCE DAILY TAKING PANTOPRAZOLE SODIUM 40 MG TABLET DELAYED RELEASE 1 TABLET ORALLY ONCE A DAY TAKING COMBIVENT 120-20 MCG/ACT AEROSOL 1 PUFFS INHALATION FOUR TIMES A DAY TAKING SEROQUEL 400 MG TABLET 1 TABLET AT BEDTIME ORALLY ONCE A DAY TAKING CYCLOBENZAPRINE HCL 5 MG TABLET 1 TABLET ORALLY THREE TIMES A DAY PRN FOR SEVERE MUSCLE SPASM PAIN TAKING HYDROCODONE-ACETAMINOPHEN 7.5-325 MG TABLET 1 ORALLY Q8H PRN MDD3 NOT-TAKING LIDOCAINE HCL JELLY ASSISTED 2 % JELLY 5 ML1 APPLICATION TO AFFECTED AREA NEEDED INTRAVESICALLY TIME AT CYSTOSCOPY NOT-TAKING PERCOCET 5-325 MG TABLET 1 TABLET NEEDED ORALLY EVERY 6 HRS, MDD 4 NOT-TAKING FLOMAX 0.4 MG CAPSULE 1 CAPSULE ORALLY ONCE A DAY NOT-TAKING HYDROCODONE-ACETAMINOPHEN 7.5-325 MG TABLET 1 ORALLY EVERY 8HRS PRN MDD3 NOT-TAKING FLOMAX 0.4 MG CAPSULE 1 CAPSULE ORALLY ONCE A DAY NOT-TAKING ZYPREXA 5 MG TABLET 1 TABLET ORALLY ONCE A DAY NOT-TAKING GEODON 40 MG CAPSULE 1 CAPSULE WITH FOOD ORALLY TWICE A DAY NOT-TAKING BREO ELLIPTA 100-25 MCG/INH AEROSOL POWDER BREATH ACTIVATED 1 PUFF INHALATION ONCE A DAY NOT-TAKING INVEGA 3 MG TABLET EXTENDED RELEASE 24 HOUR 1 TABLET ORALLY ONCE A DAY NOT-TAKING PRILOSEC 20 MG CAPSULE DELAYED RELEASE 1 CAPSULE ORALLY TWICE DAILY NOT-TAKING ESTRACE 0.1 MG/GM CREAM 0.5 GRAMS VAGINAL 3X PER WEEK MEDICATION LIST REVIEWED AND RECONCILED WITH THE PATIENT PAST MEDICAL HISTORY HYPOTHYROID ACID REFLUX ESOPHAGEAL REFLUX COPD SCHIZOAFFECTIVE DISORDER LOW BACK PAIN LEFT LEG PAIN SACROILIAC JOINT PAIN KIDNEY STONES ALLERGIES TETRACYCLINE HCL: RASH, VOMITING: ALLERGY MOTRIN: NAUSEA: SIDE EFFECTS RISPERDAL: ANAPHYLAXIS: ALLERGY TRAMADOL HCL: RASH: SIDE EFFECTS SEROQUEL: RASH: SIDE EFFECTS SURGICAL HISTORY LT SHOULDER SURGERY 2000 STOMACH SURGERY FOR REFLUX 1990S CHOLECYSTECTOMY 1996 HYSTERECTOMY 1996 HERNIA REPAIR 04/25 LEFT CATARACT 2015 ADHESION REMOVAL 03/27 SOCIAL HISTORY GENERAL: PAIN CLINIC PFS, CLERGY, PUBLIC HEALTH REFERRALS CLERGY REFERRAL NEEDED?NO WAS THE PROVIDER NOTIFIED OF ANY PERTINENT INFO?NO PFS REFERRAL NEEDED?NO PUBLIC HEALTH REFERRAL NEEDED?NO PATIENT: ____. HOSPITALIZATION/MAJOR DIAGNOSTIC PROCEDURE PNEUMONIA PSYCHIATRIC 1995 REVIEW OF SYSTEMS CONSTITUTIONAL: ANY CHANGE IN YOUR MEDICAL CONDITION? NO . CHILLS NO . FEVER NO . INFECTION: DO YOU HAVE NEW INFECTIONS? NO . DO YOU HAVE HISTORY OF MRSA? NO . MUSCULOSKELETAL: ANY NEW PATTERNS OF PAIN OR NUMBNESS? YES, NEW PAIN &QUOT;SHOOTING UP AND DOWN LEFT LEG&QUOT; . GASTROENTEROLOGY: ANY NEW CHANGE IN BOWEL CONTROL? NO . GENITOURINARY: ANY NEW CHANGE IN BLADDER CONTROL? NO . IS THERE A CHANCE YOU COULD BE ? NO . HEMATOLOGY/LYMPH: DO YOU TAKE ANY BLOOD THINNERS? (FOR EXAMPLE- COUMADIN, PLAVIX, AGGRENOX, PLATEL, PRADAXA, OR XARELTO) NO . WHEN WAS YOUR LAST DOSE? DATE: TIME: . NEUROLOGY: HAVE YOU FALLEN IN THE PAST 6 MONTHS? NO . ANY NEW EXTREMITY NUMBNESS OR WEAKNESS? NO . CARDIOLOGY: DO YOU HAVE A PACEMAKER OR DEFIBRILLATOR? NO . RESPIRATORY: HAVE YOU BEEN SICK IN THE PAST WEEK? NO . FEVER NO . FLU LIKE SYMPTOMS? NO . COUGH NO . INTEGUMENTARY: DO YOU HAVE ANY RASHES OR OPEN SORES? NO . ALLERGIC/IMMUNO: ARE YOU ALLERGIC TO SHELLFISH OR IV DYE? NO . ANY NEW ALLERGIES? NO . PSYCHIATRIC: DO YOU HAVE THOUGHTS OF HURTING YOURSELF OR SOMEONE ELSE? NO . ARE YOU ABUSED, NEGLECTED, OR IN AN UNSAFE ENVIRONMENT? NO . ENDOCRINOLOGY: ARE YOU DIABETIC? NO . OTHER: DO YOU NEED ANY PRESCRIPTIONS? NO . IF YES, PLEASE LIST: ____ . ANY NEW PROBLEMS WITH YOUR MEDICATIONS? NO . WHEN DID YOU LAST EAT? ____ . WHEN DID YOU LAST DRINK? ____ . WHAT DID YOU LAST DRINK? ____ . NAME OF PERSON DRIVING YOU HOME? ____ . DO YOU HAVE ANY OTHER QUESTIONS OR CONCERNS NO . REVIEWED BY: PROVIDER: VAN ROCHA . VITAL SIGNS WT 198.6 LBS, HT 63 IN, BMI 35.18 INDEX, BP 151/79 MM HG, HR 84 /MIN, RR 16 /MIN, TEMP 97.7 F, OXYGEN SAT % 94%, NA INITIALS AW 1037. EXAMINATION GENERAL EXAMINATION: LUNGS:LUNG SOUNDS ARE CLEAR. HEART:HEART RATE REGULAR. MUSCULOSKELETAL:*. MUSCULOSKELETAL:*, MUSCLE STRENGTH TESTING 5/5 BILATERAL. PALPATION: POSITIVE FOR PAIN OVER L/S SPINE. POSITIVE FOR PAIN OVER L/S PARSPINALS L>R..ROJM SPINE W INCREASE PAIN W MINIMAL MOVEMENT.. DIAGNOSTIC: . DIAGNOSTIC:MRI L/S SPINE-12/[id number] DEGENERATIVE CHANGES W MILD STENOSIS. ASSESSMENTS CHRONIC BILATERAL LOW BACK PAIN WITH BILATERAL SCIATICA - M54.42 (PRIMARY) CHRONIC PRESCRIPTION OPIATE USE - Z79.891 TREATMENT CHRONIC BILATERAL LOW BACK PAIN WITH BILATERAL SCIATICA REFILL HYDROCODONE-ACETAMINOPHEN TABLET, 7.5-325 MG, 1, ORALLY, Q8H PRN MDD3, 30 DAY(S), 90, REFILLS 0 REFILL CYCLOBENZAPRINE HCL TABLET, 5 MG, 1 TABLET, ORALLY, THREE TIMES A DAY PRN FOR SEVERE MUSCLE SPASM PAIN, 30 DAY(S), 45, REFILLS 2 START IBUPROFEN TABLET, 400 MG, 1 TABLET WITH FOOD OR MILK NEEDED, ORALLY, THREE TIMES A DAY, 30 DAY(S), 90 TABLET, REFILLS 1 NOTES: ISTOP REGISTRY REVIEWED AND DEMNOSTRATES COMPLLIANCE. BRINGS IN MEDICATIONS WHICH IS APPROPRIATE FOR WHAT WAS DISPENSED. RECENT URINE TOXICOLOGY REVIEWED. NO UNAUTHORIZED MEDICATIONS. NO ILLICIT SUBSTANCES AND PRESCRIBED MEDICATIONS WERE PRESENT. , RISKS AND BENEFITS OF NARCOTIC/OPIOD MEDICATIONS WERE REVIEWED WITH PATIENT - THIS INCLUDES BUT IS NOT LIMITED TO RISK OF DEPENDANCE/DEVELOPMENT OF ADDICTION, MOOD DISTURBANCE AND DEPRESSION, OSTEOPOROSIS, HORMONAL AND LABIDAL CHANGES, RESPIRATORY DEPRESSION AND . PATIENT IS ADVISED NOT TO DRIVE WHILE ON THESE MEDICATIONS. PROCEDURE CODES FA211 ESTABILISHED PATIENT [facility] CHARGE DISPOSITION & COMMUNICATION FOLLOW UP 2 MONTHS ELECTRONICALLY SIGNED BY AJ MORATAYA ON 08/28/2016 AT 05:05 PM EDT DISCLAIMER : THIS IS A VISIT SUMMARY EXTRACTED FROM THE [employer] CHART. IT IS NOT A COPY OF THE [employer] PROGRESS NOTE. PHILLIP
== END ==
LOC: M PAIN 10:20
PROVIDERS: ATTEND Nurse Practitioner Family
DX: M54.42 Lumbago with sciatica, left side (principal); G89.29 Other chronic pain; Z79.891 Long term (current) use of opiate analgesic; Z79.899 Other long term (current) drug therapy; E03.9 Hypothyroidism, unspecified; K21.9 Gastro-esophageal reflux disease without esophagitis; J44.9 Chronic obstructive pulmonary disease, unspecified; F20.9 Schizophrenia, unspecified; Z88.8 Allergy status to other drugs, medicaments and biological substances; Z88.6 Allergy status to analgesic agent; Z88.1 Allergy status to other antibiotic agents; Z87.442 Personal history of urinary calculi

== ENCOUNTER → 2016-09-04 | Outpatient (REF) | payer OTHER ==
[~2016-09-04] MED LIST changes: +CIPR500T89 PO; +HYDR-3716 PO
== END ==
LOC: M SMT 17:02
PROVIDERS: ATTEND Nurse Practitioner Women's Health
DX: R35.0 Frequency of micturition (principal); R39.15 Urgency of urination

== ENCOUNTER → 2016-09-04 | Outpatient (CLI) | payer OTHER ==
--- NOTE | 2016-09-04 10:26 | PFTRPT ---
Site: [facility], [address] [place] [address], [id number] ID: [id number] Name: MAGALY CORTEZ PULMONARY FUNCTION REPORT ORDERING PROVIDER: INGA Whitaker DATE OF SERVICE: 09/04/16 SPIROMETRY:The study is of excellent technical quality. The patient had marked difficulties with some of the required maneuvers. The forced vital capacity is reduced. The FEV1 is in proportion. The obstructive index is, therefore, normal. FLOW VOLUME LOOP: The expiratory limb of the flow volume loop does suggest some degree of impairment, however. LUNG VOLUMES: The total lung capacity is normal. The residual volume suggests significant air trapping. DIFFUSION CAPACITY: The diffusion capacity is reduced, but does correct for alveolar volume. HEMOGLOBIN: No hemoglobin was ordered for correction. AIRWAY MECHANICS: Airways resistance and conductance are normal. IMPRESSION: Suspect at least some degree of underlying air trapping. Borderline diffusion capacity impairment. Please correlate clinically. MTDD
== END ==
LOC: M CARPUL 08:44
PROVIDERS: ATTEND Nurse Practitioner Family
DX: Z72.0 Tobacco use (principal); J44.9 Chronic obstructive pulmonary disease, unspecified; R06.02 Shortness of breath

== ENCOUNTER → 2016-09-04 | Outpatient (CLI) | payer OTHER ==
--- NOTE | 2016-09-05 02:12 | REP ---
Clinical: Chronic obstructive pulmonary disease. Technique: PA and lateral. Comparison: 05/01/2016. Findings: Chronic interstitial changes compatible with COPD noted. No acute consolidation, effusion, or pneumothorax. Skeletal structures intact. Mediastinum and cardiac silhouette normal. Impression: Chronic-appearing changes consistent with history of COPD. No obvious acute cardiopulmonary process appreciated. Signed by Kuldeep Borjas MD 09/05/2016 02:04 A
== END ==
LOC: M LAB 08:49
PROVIDERS: ATTEND Nurse Practitioner Family
DX: J44.9 Chronic obstructive pulmonary disease, unspecified (principal)

== ENCOUNTER 2016-09-07 16:58 | Emergency (ER) | payer OTHER ==
[~2016-09-07] VITALS: Ht 160 cm; Wt 88.9 kg
[~2016-09-07 16:58] MED LIST changes: -CIPR500T89 PO; -HYDR-3716 PO
[2016-09-07 16:59] VITALS: BP 128/82
[2016-09-07] MEDS ORDERED: HYDR-3716 PO (17:10)
[2016-09-07] MEDS ORDERED: CIPR500T89 PO (18:09)
== END 2016-09-07 18:18 | disposition home or self-care (01) ==
LOC: M ED 17:34
DX: N30.91 Cystitis, unspecified with hematuria (principal); Z79.899 Other long term (current) drug therapy; Z88.1 Allergy status to other antibiotic agents; Z88.5 Allergy status to narcotic agent; Z88.8 Allergy status to other drugs, medicaments and biological substances; F17.210 Nicotine dependence, cigarettes, uncomplicated

== ENCOUNTER → 2016-09-19 | Outpatient (REF) | payer OTHER ==
[~2016-09-19] MED LIST changes: +CIPR500T89 PO; +HYDR-3716 PO
== END ==
LOC: M SMT 09:03
PROVIDERS: ATTEND Nurse Practitioner Women's Health
DX: N39.0 Urinary tract infection, site not specified (principal)

== ENCOUNTER 2016-09-29 09:31 | Emergency (ER) | payer OTHER ==
[~2016-09-29] VITALS: Ht 160 cm; Wt 88.9 kg
[2016-09-29 09:31] VITALS: BP 146/82
[2016-09-29] MEDS ORDERED: BREO1INH INH (09:40)
[2016-09-29] MEDS ORDERED: MULTLIQ7 PO (09:40)
[2016-09-29] MEDS ORDERED: HYDR-3716 PO (09:40)
[2016-09-29] MEDS ORDERED: CYCLOBENZAPRINE 10 MG TAB PO ONE (10:15)
[2016-09-29] MEDS ORDERED: NAPROXEN 250 MG TAB PO ONE (10:15)
== END 2016-09-29 10:19 | disposition home or self-care (01) ==
LOC: M ED 10:10
DX: S39.011A Strain of muscle, fascia and tendon of abdomen, initial encounter (principal); X50.9XXA Other and unspecified overexertion or strenuous movements or postures, initial encounter; Y93.89 Activity, other specified; Y92.89 Other specified places as the place of occurrence of the external cause; Y99.9 Unspecified external cause status; J45.909 Unspecified asthma, uncomplicated; E07.9 Disorder of thyroid, unspecified; F17.200 Nicotine dependence, unspecified, uncomplicated; Z90.49 Acquired absence of other specified parts of digestive tract; Z79.899 Other long term (current) drug therapy; Z88.1 Allergy status to other antibiotic agents; Z88.5 Allergy status to narcotic agent; Z88.8 Allergy status to other drugs, medicaments and biological substances

== ENCOUNTER → 2016-10-04 | Outpatient (CLI) | payer OTHER ==
[~2016-10-04] MED LIST changes: +BREO1INH INH; +MULTLIQ7 PO
[2016-10-04 09:58] LABS: BASO % 0.8 % (0.0-1.0); EOS # 0.3 K/mm3 (0.0-0.50); EOS % 4.7 % (0.0-3.0); LARGE UNSTAINED CELL # 0.2 K/mm3 (0.0-0.4); LARGE UNSTAINED CELL % 2.2 % (0.0-4.0); LYMPH # 1.6 K/mm3 (1.5-4.5); LYMPH % 23.7 % (24.0-44.0); MEAN CORPUSCULAR HEMOGLOBIN 30.8 pg (27.0-33.0); MEAN CORPUSCULAR HGB CONC 33.2 g/dl (32.0-36.5); MEAN CORPUSCULAR VOLUME 92.8 fl (80.0-96.0); MONO # 0.4 K/mm3 (0.0-0.8); MONO % 6.2 % (0.0-5.0); NEUTROPHILS # 4.1 K/mm3 (1.8-7.7); NEUTROPHILS % 62.4 % (36.0-66.0); PLATELET COUNT, AUTOMATED 195 k/mm3 (150-450); RED CELL DISTRIBUTION WIDTH 12.9 % (11.5-14.5); WHITE BLOOD COUNT 6.6 K/mm3 (4.0-10.0)
[2016-10-04 10:35] LABS: ALBUMIN/GLOBULIN RATIO 1.18 (1.00-1.93); BILIRUBIN,TOTAL 0.3 MG/DL (0.2-1.0); CALCIUM LEVEL 8.8 MG/DL (8.5-10.1); CREATININE FOR GFR 1.17 MG/DL (0.55-1.02); GLOMERULAR FILTRATION RATE 50.4 (>51); POTASSIUM SERUM 4.2 MEQ/L (3.5-5.1); TOTAL PROTEIN 7.4 GM/DL (6.4-8.2)
--- NOTE | 2016-10-04 11:01 | REP ---
Complete abdominal ultrasound: The the patient has a cholecystectomy. The hepatic parenchyma is homogeneous and mildly hyperechoic compatible with hepato steatosis. There are no focal hepatic masses or cysts. The pancreas is obscured by bowel gas. The spleen is normal size measuring 10.2 x 3 point of 9.3 cm. The splenic parenchyma is homogeneous. The kidneys are normal size. Right kidney measures 9.9 x 4.0 x 4.4 cm. Left kidney measures 11 point 9 x 4.5 x 4.9 cm. There is no calculus, hydronephrosis, mass or cyst on the right on the left. The abdominal aorta is obscured by bowel gas. And there is no free fluid in the abdomen. A small midline hernia is seen just superior to the umbilicus. Impression: There is a small midline hernia just superior to the umbilicus. The patient has a cholecystectomy. The pancreas and aorta are obscured by bowel gas. Hepato steatosis. Signed by Jamal Evans MD 10/04/2016 10:52 A
== END ==
LOC: M RAD 09:46
PROVIDERS: ATTEND Nurse Practitioner Family
DX: K76.0 Fatty (change of) liver, not elsewhere classified (principal); K42.9 Umbilical hernia without obstruction or gangrene; R10.9 Unspecified abdominal pain; Z90.49 Acquired absence of other specified parts of digestive tract

== ENCOUNTER → 2016-10-14 | Outpatient (CLI) | payer OTHER ==
[2016-10-14 10:48] LABS: CALCIUM LEVEL 8.7 MG/DL (8.5-10.1); CREATININE FOR GFR 1.25 MG/DL (0.55-1.02); GLOMERULAR FILTRATION RATE 46.7 (>51); POTASSIUM SERUM 4.1 MEQ/L (3.5-5.1)
== END ==
LOC: M LAB 08:44
PROVIDERS: ATTEND Nurse Practitioner Family
DX: K76.0 Fatty (change of) liver, not elsewhere classified (principal)

== ENCOUNTER → 2016-10-14 | Outpatient (CLI) | payer OTHER ==
--- NOTE | 2016-10-15 03:57 | REP ---
Clinical: Lower abdominal pain. Comparison: 06/26/2016. Findings: Lung bases demonstrate chronic interstitial changes and mild lower lobe bronchiectasis. Visualized portions of the heart and pericardium normal. Diffuse hepatosteatosis is unchanged. Spleen, pancreas, bilateral adrenal glands left kidney are normal. The right kidney demonstrates chronic cortical scarring and mild atrophy along with possible dilated lower pole radha versus 1.3 cm cyst. There is no evidence for nephroureterolithiasis and the bilateral ureters and bladder appear normal. The enteric system is without obstruction or acute inflammatory process although moderate fecal stasis and possible constipation is suggested. Normal terminal ileum and appendix are identified in the right lower quadrant. 1 cm fat containing periumbilical hernia noted. Pelvis demonstrates normal bladder and evidence for prior hysterectomy. No ascites. No free air. No adenopathy. Abdominal aorta without aneurysm. Musculoskeletal structures demonstrate age-related changes. Impression: 1. Right kidney demonstrates chronic cortical scarring and mild atrophy along with possible 1.3 cm lower pole cyst versus focal dilated radha, these findings appear chronic and likely related to prior insult. 2. The urinary tract system is otherwise unremarkable and there is no evidence for hydroureteronephrosis. 3. 1 cm fat containing periumbilical hernia. 4. Hepatic steatosis Signed by Kuldeep Borjas MD 10/15/2016 03:48 A
== END ==
LOC: M RAD 09:13
PROVIDERS: ATTEND Urology
DX: K76.0 Fatty (change of) liver, not elsewhere classified (principal); R93.41 Abnormal radiologic findings on diagnostic imaging of renal pelvis, ureter, or bladder

== ENCOUNTER → 2016-10-14 | Outpatient (CLI) | payer OTHER ==
[2016-10-14 09:49] LABS: BASO # 0.1 K/mm3 (0.0-0.2); BASO % 1.1 % (0.0-1.0); EOS # 0.3 K/mm3 (0.0-0.50); EOS % 4.6 % (0.0-3.0); LYMPH # 1.7 K/mm3 (1.5-4.5); LYMPH % 29.4 % (24.0-44.0); MEAN CORPUSCULAR HEMOGLOBIN 31.1 pg (27.0-33.0); MEAN CORPUSCULAR HGB CONC 32.7 g/dl (32.0-36.5); MEAN CORPUSCULAR VOLUME 94.9 fl (80.0-96.0); MONO # 0.4 K/mm3 (0.0-0.8); MONO % 6.7 % (0.0-5.0); NEUTROPHILS # 3.1 K/mm3 (1.8-7.7); NEUTROPHILS % 55.8 % (36.0-66.0); RED CELL DISTRIBUTION WIDTH 13.1 % (11.5-14.5); WHITE BLOOD COUNT 5.6 K/mm3 (4.0-10.0)
[2016-10-14 10:23] LABS: ALBUMIN 3.9 GM/DL (3.2-5.2); ALBUMIN/GLOBULIN RATIO 1.08 (1.00-1.93); BILIRUBIN,TOTAL 0.4 MG/DL (0.2-1.0); CALCIUM LEVEL 8.7 MG/DL (8.5-10.1); CREATININE FOR GFR 1.26 MG/DL (0.55-1.02); GLOMERULAR FILTRATION RATE 46.3 (>51); POTASSIUM SERUM 4.1 MEQ/L (3.5-5.1); TOTAL PROTEIN 7.5 GM/DL (6.4-8.2)
== END ==
LOC: M LAB 08:41
PROVIDERS: ATTEND Physician Assistant
DX: F25.9 Schizoaffective disorder, unspecified (principal)

== ENCOUNTER → 2016-10-21 | Outpatient (CLI) | payer OTHER ==
--- NOTE | 2016-10-23 01:11 | ECWPNPC ---
PATIENT NAME: MAGALY CORTEZ : 1955 GENDER: FEMALE VISIT DATE: 10/21/2016 DISCHARGE DATE: 10/21/16 1032 VISIT LOCKED DATE TIME: PHYSICIAN: VAN CLAYTON RESOURCE: VAN CLAYTON REASON FOR APPOINTMENT 1. BACK HISTORY OF PRESENT ILLNESS HISTORY OF PRESENT ILLNESS: HERE FOR F/U OF CHRONIC LBP.RATING VAS 8/10.CONTINUES W USE OF HYDROCODONE 7.5MG/325 PRN FOR SEVERE PAIN W MDD3.ALSO USING FLEXERIL 10MG PRN FOR SEVERE MUSCLE SPASM.REPORTS THAT CURRENT MEDICINE EFFECTIVE AT REDUCING PAIN AND KEEPING HER FUNCTIONAL.DISCUSSED MEDICINE AND TREATMENT OPTIONS. DESPITE PT AND USE OF NSAIDS SHE CONTINUES TO HAVE SEVERE PAIN.LAST MRI 2011/- SPINE. PAIN THE PATIENT DESCRIBES THE PAIN... THE PATIENT DESCRIBES THE PAIN... THE PATIENT DESCRIBES THE PAIN... THE PATIENT DESCRIBES THE PAIN... THE PATIENT DESCRIBES THE PAIN... THE PATIENT DESCRIBES THE PAIN... THE PATIENT DESCRIBES THE PAIN... FALL RISK SCREENING: SCREENING :NO FALLS IN THE PAST YEAR CURRENT MEDICATIONS TAKING TOPAMAX 200 MG TABLET 1 TABLET ORALLY BEFORE BEDTIME TAKING REMERON 30 MG TABLET 1 TABLET BEFORE BEDTIME IN THE EVENING ORALLY ONCE A DAY TAKING SYNTHROID 125 MCG TABLET 1 TABLET ORALLY ONCE A DAY TAKING KLONOPIN 1 MG TABLET 1 TABLET ORALLY BID, 1/2 TAB FOR THIRD DOSE NEEDED TAKING VENTOLIN HFA 108 (90 BASE) MCG/ACT AEROSOL SOLUTION 2 PUFFS NEEDED INHALATION EVERY 4 HRS TAKING VITAMIN D 1000 UNIT TABLET 1 CAPSULE ORALLY ONCE DAILY TAKING PANTOPRAZOLE SODIUM 40 MG TABLET DELAYED RELEASE 1 TABLET ORALLY ONCE A DAY TAKING COMBIVENT 120-20 MCG/ACT AEROSOL 1 PUFFS INHALATION FOUR TIMES A DAY TAKING SEROQUEL 400 MG TABLET 1 TABLET AT BEDTIME ORALLY ONCE A DAY TAKING IBUPROFEN 400 MG TABLET 1 TABLET WITH FOOD OR MILK NEEDED ORALLY THREE TIMES A DAY TAKING LIDOCAINE HCL JELLY INTERMEDIATE 2 % CREAM SMALL AMT EXTERNALLY TO LOW BACK Q8H PRN TAKING ALBUTEROL SOLUTION NEBULIZER BID TAKING BARD URETHRAL CATHETER 16" - MISCELLANEOUS DIRECTED TAKING MULTI FOR HER 50+ 1 CAP INTRADERMALLY DAILY TAKING BACTRIM DS 800-160 MG TABLET 1 TABLET ORALLY DIRECTED- 1 HOUR PRIOR TO CYSTOSCOPY TAKING CYCLOBENZAPRINE HCL 5 MG TABLET 1 TABLET ORALLY THREE TIMES A DAY PRN FOR SEVERE MUSCLE SPASM PAIN TAKING HYDROCODONE-ACETAMINOPHEN 7.5-325 MG TABLET 1 ORALLY Q8H PRN MDD3 NOT-TAKING PERCOCET 5-325 MG TABLET 1 TABLET NEEDED ORALLY EVERY 6 HRS, MDD 4 NOT-TAKING FLOMAX 0.4 MG CAPSULE 1 CAPSULE ORALLY ONCE A DAY NOT-TAKING HYDROCODONE-ACETAMINOPHEN 7.5-325 MG TABLET 1 ORALLY EVERY 8HRS PRN MDD3 NOT-TAKING FLOMAX 0.4 MG CAPSULE 1 CAPSULE ORALLY ONCE A DAY NOT-TAKING ZYPREXA 5 MG TABLET 1 TABLET ORALLY ONCE A DAY NOT-TAKING GEODON 40 MG CAPSULE 1 CAPSULE WITH FOOD ORALLY TWICE A DAY NOT-TAKING BREO ELLIPTA 100-25 MCG/INH AEROSOL POWDER BREATH ACTIVATED 1 PUFF INHALATION ONCE A DAY NOT-TAKING INVEGA 3 MG TABLET EXTENDED RELEASE 24 HOUR 1 TABLET ORALLY ONCE A DAY NOT-TAKING PRILOSEC 20 MG CAPSULE DELAYED RELEASE 1 CAPSULE ORALLY TWICE DAILY NOT-TAKING ESTRACE 0.1 MG/GM CREAM 0.5 GRAMS VAGINAL 3X PER WEEK DISCONTINUED LIDOCAINE HCL 2 % GEL 1 APPLICATION TO AFFECTED AREA NEEDED INTRAVESICALLY INSERT 5 CC PRIOR TO CATETHER PLACEMENT DISCONTINUED CIPRO 500 MG TABLET 1 TABLET ORALLY TWICE A DAY MEDICATION LIST REVIEWED AND RECONCILED WITH THE PATIENT PAST MEDICAL HISTORY HYPOTHYROID ACID REFLUX ESOPHAGEAL REFLUX COPD SCHIZOAFFECTIVE DISORDER LOW BACK PAIN LEFT LEG PAIN SACROILIAC JOINT PAIN KIDNEY STONES UMBILICAL HERNIA ALLERGIES TETRACYCLINE HCL: RASH, VOMITING: ALLERGY MOTRIN: NAUSEA: SIDE EFFECTS RISPERDAL: ANAPHYLAXIS: ALLERGY TRAMADOL HCL: RASH: SIDE EFFECTS REVIEW OF SYSTEMS CONSTITUTIONAL: ANY CHANGE IN YOUR MEDICAL CONDITION? YES, HAS SMALL UMBILICAL HERNIA THAT THEY ARE WATCHING . CHILLS NO . FEVER NO . INFECTION: DO YOU HAVE NEW INFECTIONS? NO . DO YOU HAVE HISTORY OF MRSA? NO . MUSCULOSKELETAL: ANY NEW PATTERNS OF PAIN OR NUMBNESS? NO . GASTROENTEROLOGY: ANY NEW CHANGE IN BOWEL CONTROL? NO . GENITOURINARY: ANY NEW CHANGE IN BLADDER CONTROL? NO . IS THERE A CHANCE YOU COULD BE ? NO . HEMATOLOGY/LYMPH: DO YOU TAKE ANY BLOOD THINNERS? (FOR EXAMPLE- COUMADIN, PLAVIX, AGGRENOX, PLATEL, PRADAXA, OR XARELTO) NO . WHEN WAS YOUR LAST DOSE? DATE: TIME: . NEUROLOGY: HAVE YOU FALLEN IN THE PAST 6 MONTHS? NO . ANY NEW EXTREMITY NUMBNESS OR WEAKNESS? NO . CARDIOLOGY: DO YOU HAVE A PACEMAKER OR DEFIBRILLATOR? NO . RESPIRATORY: HAVE YOU BEEN SICK IN THE PAST WEEK? NO . FEVER NO . FLU LIKE SYMPTOMS? NO . COUGH NO . INTEGUMENTARY: DO YOU HAVE ANY RASHES OR OPEN SORES? NO . ALLERGIC/IMMUNO: ARE YOU ALLERGIC TO SHELLFISH OR IV DYE? NO . ANY NEW ALLERGIES? NO . PSYCHIATRIC: DO YOU HAVE THOUGHTS OF HURTING YOURSELF OR SOMEONE ELSE? NO . ARE YOU ABUSED, NEGLECTED, OR IN AN UNSAFE ENVIRONMENT? NO . ENDOCRINOLOGY: ARE YOU DIABETIC? NO . OTHER: DO YOU NEED ANY PRESCRIPTIONS? YES . IF YES, PLEASE LIST: HYDROCODONE AND LIDOCAINE JELLY ON THE OF THIS MONTH . ANY NEW PROBLEMS WITH YOUR MEDICATIONS? NO . WHEN DID YOU LAST EAT? ____ . WHEN DID YOU LAST DRINK? ____ . WHAT DID YOU LAST DRINK? ____ . NAME OF PERSON DRIVING YOU HOME? ____ . DO YOU HAVE ANY OTHER QUESTIONS OR CONCERNS NO . REVIEWED BY: PROVIDER: VAN ROCHA . VITAL SIGNS WT 199.2 LBS, HT 63 IN, BMI 35.28 INDEX, BP 136/82 MM HG, HR 80 /MIN, RR 16 /MIN, TEMP 98.7 F, OXYGEN SAT % 97%, NA INITIALS [id number], REVIEWED BY: AD. EXAMINATION GENERAL EXAMINATION: LUNGS:LUNG SOUNDS ARE CLEAR. HEART:HEART RATE REGULAR. MUSCULOSKELETAL:*. MUSCULOSKELETAL:*, MUSCLE STRENGTH TESTING 5/5 BILATERAL. PALPATION: POSITIVE FOR PAIN OVER L/S SPINE. POSITIVE FOR PAIN OVER L/S PARSPINALS L>R..ROJM SPINE W INCREASE PAIN W MINIMAL MOVEMENT.. DIAGNOSTIC: . DIAGNOSTIC:MRI L/S SPINE-12/[id number] DEGENERATIVE CHANGES W MILD STENOSIS. ASSESSMENTS CHRONIC BILATERAL LOW BACK PAIN WITH BILATERAL SCIATICA - M54.42 (PRIMARY) CHRONIC PRESCRIPTION OPIATE USE - Z79.891 TREATMENT CHRONIC BILATERAL LOW BACK PAIN WITH BILATERAL SCIATICA CONTINUE IBUPROFEN TABLET, 400 MG, 1 TABLET WITH FOOD OR MILK NEEDED, ORALLY, THREE TIMES A DAY CONTINUE LIDOCAINE HCL JELLY INTERMEDIATE CREAM, 2 %, SMALL AMT, EXTERNALLY TO LOW BACK, Q8H PRN CONTINUE CYCLOBENZAPRINE HCL TABLET, 5 MG, 1 TABLET, ORALLY, THREE TIMES A DAY PRN FOR SEVERE MUSCLE SPASM PAIN REFILL HYDROCODONE-ACETAMINOPHEN TABLET, 7.5-325 MG, 1, ORALLY, Q8H PRN MDD3, 30 DAY(S), 90, REFILLS 0 ANITA SPINE LS [id number] NOTES: ISTOP REGISTRY REVIEWED AND DEMNOSTRATES COMPLLIANCE. BRINGS IN MEDICATIONS WHICH IS APPROPRIATE FOR WHAT WAS DISPENSED. RECENT URINE TOXICOLOGY REVIEWED. NO UNAUTHORIZED MEDICATIONS. NO ILLICIT SUBSTANCES AND PRESCRIBED MEDICATIONS WERE PRESENT. , RISKS AND BENEFITS OF NARCOTIC/OPIOD MEDICATIONS WERE REVIEWED WITH PATIENT - THIS INCLUDES BUT IS NOT LIMITED TO RISK OF DEPENDANCE/DEVELOPMENT OF ADDICTION, MOOD DISTURBANCE AND DEPRESSION, OSTEOPOROSIS, HORMONAL AND LABIDAL CHANGES, RESPIRATORY DEPRESSION AND . PATIENT IS ADVISED NOT TO DRIVE WHILE ON THESE MEDICATIONS. PROCEDURE CODES FA211 ESTABILISHED PATIENT [facility] CHARGE DISPOSITION & COMMUNICATION FOLLOW UP 6 WEEKS (REASON: REVIEW XRAY) ELECTRONICALLY SIGNED BY AJ MORATAYA ON 10/21/2016 AT 01:30 PM EDT DISCLAIMER : THIS IS A VISIT SUMMARY EXTRACTED FROM THE [employer] CHART. IT IS NOT A COPY OF THE [employer] PROGRESS NOTE. PHILLIP
== END ==
LOC: M PAIN 09:40
PROVIDERS: ATTEND Nurse Practitioner Family
DX: M54.42 Lumbago with sciatica, left side (principal); Z79.891 Long term (current) use of opiate analgesic; Z88.1 Allergy status to other antibiotic agents; Z88.6 Allergy status to analgesic agent; Z88.8 Allergy status to other drugs, medicaments and biological substances

== ENCOUNTER → 2016-11-28 | Outpatient (CLI) | payer OTHER ==
[~2016-11-28] MED LIST changes: +ARNU1INH INH; +CIPR-249 PO; -CIPR500T89 PO; +FLOM5CAP PO; +HYDR-3719 PO; -INVE3TAB PO; +INVE3TAB2 PO; +IPRASOL4 INH; -LEVO125T3 PO; +LEVO125T4 PO; +MULT1TAB15 PO; +NICO21DI31 TOP; +PERC5TAB12 PO; -PERC5TAB6 PO; +RANI150T PO; -TOPA200T6 PO; +TOPA200T7 PO; -VITA100037 PO; +VITA100067 PO
--- NOTE | 2016-11-28 09:42 | REP ---
Lumbar spine series: Five views. History: Lumbago. No known injury. Comparison study: January 30, 2016. Findings: There are clips in the right upper quadrant consistent with previous cholecystectomy. Lumbar vertebral body heights are preserved. There is disc space narrowing and discogenic spurring at L3-4 and to a lesser extent at L4-5. Pedicles and posterior elements are intact. There is no evidence of spondylolysis or spondylolisthesis. Sacrum and SI joints are intact. Impression: Mild degenerative disc disease at L3-4 L4-5 unchanged. No acute abnormality. Signed by Franklyn King MD 11/28/2016 04:38 P
== END ==
LOC: M RAD 08:33
PROVIDERS: ATTEND Nurse Practitioner Family
DX: M54.42 Lumbago with sciatica, left side (principal); M51.36 Other intervertebral disc degeneration, lumbar region

== ENCOUNTER → 2016-11-28 | Outpatient (CLI) | payer OTHER ==
[2016-11-28 09:59] LABS: MEAN CORPUSCULAR HEMOGLOBIN 31.1 pg (27.0-33.0); MEAN CORPUSCULAR HGB CONC 33.3 g/dl (32.0-36.5); MEAN CORPUSCULAR VOLUME 93.3 fl (80.0-96.0); WHITE BLOOD COUNT 6.6 K/mm3 (4.0-10.0)
[2016-11-28 10:25] LABS: CALCIUM LEVEL 8.6 MG/DL (8.5-10.1); CREATININE FOR GFR 1.27 MG/DL (0.55-1.02); FREE T4 1.04 NG/DL (0.76-1.46); GLOMERULAR FILTRATION RATE 45.9 (>51); POTASSIUM SERUM 4.2 MEQ/L (3.5-5.1)
== END ==
LOC: M LAB 08:28
PROVIDERS: ATTEND Nurse Practitioner Family
DX: E55.9 Vitamin D deficiency, unspecified (principal); J44.9 Chronic obstructive pulmonary disease, unspecified; E03.9 Hypothyroidism, unspecified; N28.9 Disorder of kidney and ureter, unspecified

== ENCOUNTER → 2016-12-05 | Outpatient (CLI) | payer OTHER ==
--- NOTE | 2016-12-07 00:03 | ECWPNPC ---
PATIENT NAME: MAGALY CORTEZ : 1955 GENDER: FEMALE VISIT DATE: 12/05/2016 DISCHARGE DATE: 12/05/16 1116 VISIT LOCKED DATE TIME: PHYSICIAN: VAN CLAYTON RESOURCE: VAN CLAYTON HISTORY OF PRESENT ILLNESS HISTORY OF PRESENT ILLNESS: HERE FOR F/U OF CHRONIC LBP.RATING VAS 8/10.CONTINUES W USE OF HYDROCODONE 7.5MG/325 PRN FOR SEVERE PAIN W MDD3.ALSO USING FLEXERIL 10MG PRN FOR SEVERE MUSCLE SPASM.REPORTS THAT CURRENT MEDICINE IS INEFFECTIVE AT REDUCING PAIN AND KEEPING HER FUNCTIONAL.IBUPROFEN 400MG BID CAUSED GI UPSET AND DIDNT HELP PAIN.XRAY OF LUMBAR SPINE ORDERED AT LAST VISIT IS REVIEWED.DISCUSSED MEDICINE AND TREATMENT OPTIONS. SHE CONTINUES TO HAVE SEVERE PAIN.LAST MRI 2011/- SPINE. PAIN THE PATIENT DESCRIBES THE PAIN... THE PATIENT DESCRIBES THE PAIN... THE PATIENT DESCRIBES THE PAIN... THE PATIENT DESCRIBES THE PAIN... THE PATIENT DESCRIBES THE PAIN... THE PATIENT DESCRIBES THE PAIN... THE PATIENT DESCRIBES THE PAIN... THE PATIENT DESCRIBES THE PAIN... FALL RISK SCREENING: SCREENING :NO FALLS IN THE PAST YEAR CURRENT MEDICATIONS TAKING LIDOCAINE HCL JELLY RESIDENTIAL 2 % JELLY 5 ML1 APPLICATION TO AFFECTED AREA NEEDED INTRAVESICALLY TIME AT CYSTOSCOPY TAKING TOPAMAX 200 MG TABLET 1 TABLET ORALLY BEFORE BEDTIME TAKING REMERON 30 MG TABLET 1 TABLET BEFORE BEDTIME IN THE EVENING ORALLY ONCE A DAY TAKING SYNTHROID 125 MCG TABLET 1 TABLET ORALLY ONCE A DAY TAKING KLONOPIN 1 MG TABLET 1 TABLET ORALLY BID, 1/2 TAB FOR THIRD DOSE NEEDED TAKING VENTOLIN HFA 108 (90 BASE) MCG/ACT AEROSOL SOLUTION 2 PUFFS NEEDED INHALATION EVERY 4 HRS TAKING VITAMIN D 1000 UNIT TABLET 1 CAPSULE ORALLY ONCE DAILY TAKING PANTOPRAZOLE SODIUM 40 MG TABLET DELAYED RELEASE 1 TABLET ORALLY ONCE A DAY TAKING COMBIVENT 120-20 MCG/ACT AEROSOL 1 PUFFS INHALATION FOUR TIMES A DAY TAKING SEROQUEL 400 MG TABLET 1 TABLET AT BEDTIME ORALLY ONCE A DAY TAKING ALBUTEROL SOLUTION NEBULIZER BID TAKING MULTI FOR HER 50+ 1 CAP INTRADERMALLY DAILY TAKING IBUPROFEN 400 MG TABLET 1 TABLET WITH FOOD OR MILK NEEDED ORALLY THREE TIMES A DAY TAKING CYCLOBENZAPRINE HCL 5 MG TABLET 1 TABLET ORALLY THREE TIMES A DAY PRN FOR SEVERE MUSCLE SPASM PAIN TAKING HYDROCODONE-ACETAMINOPHEN 7.5-325 MG TABLET 1 ORALLY Q8H PRN MDD3 TAKING LIDOCAINE HCL JELLY RESIDENTIAL 2 % CREAM SMALL AMT EXTERNALLY TO LOW BACK Q8H PRN NOT-TAKING CIPRO 500 MG TABLET 1 TABLET ORALLY TWICE A DAY NOT-TAKING BARD URETHRAL CATHETER 16" - MISCELLANEOUS DIRECTED NOT-TAKING BACTRIM DS 800-160 MG TABLET 1 TABLET ORALLY DIRECTED- 1 HOUR PRIOR TO CYSTOSCOPY NOT-TAKING PERCOCET 5-325 MG TABLET 1 TABLET NEEDED ORALLY EVERY 6 HRS, MDD 4 NOT-TAKING FLOMAX 0.4 MG CAPSULE 1 CAPSULE ORALLY ONCE A DAY NOT-TAKING HYDROCODONE-ACETAMINOPHEN 7.5-325 MG TABLET 1 ORALLY EVERY 8HRS PRN MDD3 NOT-TAKING FLOMAX 0.4 MG CAPSULE 1 CAPSULE ORALLY ONCE A DAY NOT-TAKING ZYPREXA 5 MG TABLET 1 TABLET ORALLY ONCE A DAY NOT-TAKING GEODON 40 MG CAPSULE 1 CAPSULE WITH FOOD ORALLY TWICE A DAY NOT-TAKING BREO ELLIPTA 100-25 MCG/INH AEROSOL POWDER BREATH ACTIVATED 1 PUFF INHALATION ONCE A DAY NOT-TAKING INVEGA 3 MG TABLET EXTENDED RELEASE 24 HOUR 1 TABLET ORALLY ONCE A DAY NOT-TAKING PRILOSEC 20 MG CAPSULE DELAYED RELEASE 1 CAPSULE ORALLY TWICE DAILY NOT-TAKING ESTRACE 0.1 MG/GM CREAM 0.5 GRAMS VAGINAL 3X PER WEEK MEDICATION LIST REVIEWED AND RECONCILED WITH THE PATIENT PAST MEDICAL HISTORY HYPOTHYROID ACID REFLUX ESOPHAGEAL REFLUX COPD SCHIZOAFFECTIVE DISORDER LOW BACK PAIN LEFT LEG PAIN SACROILIAC JOINT PAIN KIDNEY STONES UMBILICAL HERNIA STAGE 3 KIDNEY DISEASE ALLERGIES TETRACYCLINE HCL: RASH, VOMITING: ALLERGY MOTRIN: NAUSEA: SIDE EFFECTS RISPERDAL: ANAPHYLAXIS: ALLERGY TRAMADOL HCL: RASH: SIDE EFFECTS SURGICAL HISTORY LT SHOULDER SURGERY 2000 STOMACH SURGERY FOR REFLUX CHOLECYSTECTOMY 1996 HYSTERECTOMY 1996 HERNIA REPAIR 04/25 LEFT CATARACT 2016 ADHESION REMOVAL 03/27 HOSPITALIZATION/MAJOR DIAGNOSTIC PROCEDURE PNEUMONIA PSYCHIATRIC 1995 REVIEW OF SYSTEMS REVIEWED BY: PROVIDER: VAN ROCHA . CONSTITUTIONAL: ANY CHANGE IN YOUR MEDICAL CONDITION? NO . CHILLS NO . FEVER NO . INFECTION: DO YOU HAVE NEW INFECTIONS? NO . DO YOU HAVE HISTORY OF MRSA? NO . MUSCULOSKELETAL: ANY NEW PATTERNS OF PAIN OR NUMBNESS? NO . GASTROENTEROLOGY: ANY NEW CHANGE IN BOWEL CONTROL? NO . GENITOURINARY: ANY NEW CHANGE IN BLADDER CONTROL? NO . IS THERE A CHANCE YOU COULD BE ? NO . HEMATOLOGY/LYMPH: DO YOU TAKE ANY BLOOD THINNERS? (FOR EXAMPLE- COUMADIN, PLAVIX, AGGRENOX, PLATEL, PRADAXA, OR XARELTO) NO . WHEN WAS YOUR LAST DOSE? DATE: TIME: . NEUROLOGY: HAVE YOU FALLEN IN THE PAST 6 MONTHS? NO . ANY NEW EXTREMITY NUMBNESS OR WEAKNESS? NO . CARDIOLOGY: DO YOU HAVE A PACEMAKER OR DEFIBRILLATOR? NO . RESPIRATORY: HAVE YOU BEEN SICK IN THE PAST WEEK? NO . FEVER NO . FLU LIKE SYMPTOMS? NO . COUGH NO . INTEGUMENTARY: DO YOU HAVE ANY RASHES OR OPEN SORES? NO . ALLERGIC/IMMUNO: ARE YOU ALLERGIC TO SHELLFISH OR IV DYE? NO . ANY NEW ALLERGIES? NO . PSYCHIATRIC: DO YOU HAVE THOUGHTS OF HURTING YOURSELF OR SOMEONE ELSE? NO . ARE YOU ABUSED, NEGLECTED, OR IN AN UNSAFE ENVIRONMENT? NO . ENDOCRINOLOGY: ARE YOU DIABETIC? NO . OTHER: DO YOU NEED ANY PRESCRIPTIONS? YES, HYDROCODONE, CYCLOBENZAPRINE . IF YES, PLEASE LIST: ____ . ANY NEW PROBLEMS WITH YOUR MEDICATIONS? NO . WHEN DID YOU LAST EAT? ____ . WHEN DID YOU LAST DRINK? ____ . WHAT DID YOU LAST DRINK? ____ . NAME OF PERSON DRIVING YOU HOME? ____ . DO YOU HAVE ANY OTHER QUESTIONS OR CONCERNS NO . VITAL SIGNS WT 196 LBS, HT 63 IN, BMI 34.72 INDEX, BP 127/85 MM HG, HR 73 /MIN, RR 16 /MIN, TEMP 97.3 F, OXYGEN SAT % 94%, SAFE IN ENV? (Y/N) Y, NA INITIALS TR 1025, REVIEWED BY: DENNIS. EXAMINATION GENERAL EXAMINATION: LUNGS:LUNG SOUNDS ARE CLEAR. HEART:HEART RATE REGULAR. MUSCULOSKELETAL:*. MUSCULOSKELETAL:*, MUSCLE STRENGTH TESTING 5/5 BILATERAL. PALPATION: POSITIVE FOR PAIN OVER L/S SPINE. POSITIVE FOR PAIN OVER L/S PARSPINALS L>R..ROJM SPINE W INCREASE PAIN W MINIMAL MOVEMENT.. DIAGNOSTIC: . DIAGNOSTIC:MRI L/S SPINE-12/[id number] DEGENERATIVE CHANGES W MILD STENOSIS. ASSESSMENTS CHRONIC BILATERAL LOW BACK PAIN WITH BILATERAL SCIATICA - M54.42 (PRIMARY) CHRONIC PRESCRIPTION OPIATE USE - Z79.891 TREATMENT CHRONIC BILATERAL LOW BACK PAIN WITH BILATERAL SCIATICA CONTINUE CYCLOBENZAPRINE HCL TABLET, 5 MG, 1 TABLET, ORALLY, THREE TIMES A DAY PRN FOR SEVERE MUSCLE SPASM PAIN INCREASE HYDROCODONE-ACETAMINOPHEN TABLET, 10-325 MG, 1, ORALLY, Q8H PRN MDD2, 30 DAY(S), 60, REFILLS 0 CONTINUE LIDOCAINE HCL JELLY RESIDENTIAL CREAM, 2 %, SMALL AMT, EXTERNALLY TO LOW BACK, Q8H PRN NOTES: ISTOP REGISTRY REVIEWED AND DEMNOSTRATES COMPLLIANCE. BRINGS IN MEDICATIONS WHICH IS APPROPRIATE FOR WHAT WAS DISPENSED. RECENT URINE TOXICOLOGY REVIEWED. NO UNAUTHORIZED MEDICATIONS. NO ILLICIT SUBSTANCES AND PRESCRIBED MEDICATIONS WERE PRESENT. , RISKS AND BENEFITS OF NARCOTIC/OPIOD MEDICATIONS WERE REVIEWED WITH PATIENT - THIS INCLUDES BUT IS NOT LIMITED TO RISK OF DEPENDANCE/DEVELOPMENT OF ADDICTION, MOOD DISTURBANCE AND DEPRESSION, OSTEOPOROSIS, HORMONAL AND LABIDAL CHANGES, RESPIRATORY DEPRESSION AND . PATIENT IS ADVISED NOT TO DRIVE WHILE ON THESE MEDICATIONS.URINE TOX TODAY. PROCEDURE CODES FA211 ESTABILISHED PATIENT [facility] CHARGE DISPOSITION & COMMUNICATION FOLLOW UP 2 MONTHS ELECTRONICALLY SIGNED BY AJ MORATAYA ON 12/05/2016 AT 11:38 AM EDT DISCLAIMER : THIS IS A VISIT SUMMARY EXTRACTED FROM THE [employer] CHART. IT IS NOT A COPY OF THE [email or web address] PROGRESS NOTE. PHILLIP
== END ==
LOC: M PAIN 10:00
PROVIDERS: ATTEND Nurse Practitioner Family
DX: M54.42 Lumbago with sciatica, left side (principal); G89.29 Other chronic pain; Z79.891 Long term (current) use of opiate analgesic; Z79.899 Other long term (current) drug therapy; Z88.6 Allergy status to analgesic agent; Z88.8 Allergy status to other drugs, medicaments and biological substances; Z88.5 Allergy status to narcotic agent; Z88.1 Allergy status to other antibiotic agents

== ENCOUNTER → 2017-02-12 | Outpatient (CLI) | payer OTHER ==
--- NOTE | 2017-03-04 01:03 | ECWPNPC ---
PATIENT NAME: MAGALY CORTEZ : 1955 GENDER: FEMALE VISIT DATE: 02/12/2017 DISCHARGE DATE: 02/12/17 1007 VISIT LOCKED DATE TIME: PHYSICIAN: VAN CLAYTON RESOURCE: VAN CLAYTON HISTORY OF PRESENT ILLNESS HISTORY OF PRESENT ILLNESS: HERE FOR F/U OF CHRONIC LBP.RATING VAS 5/10.CONTINUES W USE OF HYDROCODONE 10MG/325 PRN FOR SEVERE PAIN W MDD2.THIS IS AN INCREASE FROM 7.5MG AT LAST VISIT ONE MONTH AGO.SHE DOES FIND IT MORE HELPFUL BUT HAVING MIDDAY SEVERE PAIN THAT SHE DOESNT HAVE ANYTHING TO RELIEVE IT.WE DISCUSSED ALTERNATIVES TO PILLS FOR PAIN IE:MEDITATION,DIVERSION.ALSO USING FLEXERIL 10MG PRN FOR SEVERE MUSCLE SPASM.IBUPROFEN 400MG BID CAUSED GI UPSET AND DIDNT HELP PAIN. PAIN THE PATIENT DESCRIBES THE PAIN... THE PATIENT DESCRIBES THE PAIN... THE PATIENT DESCRIBES THE PAIN... THE PATIENT DESCRIBES THE PAIN... THE PATIENT DESCRIBES THE PAIN... THE PATIENT DESCRIBES THE PAIN... THE PATIENT DESCRIBES THE PAIN... THE PATIENT DESCRIBES THE PAIN... THE PATIENT DESCRIBES THE PAIN... FALL RISK SCREENING: SCREENING :NO FALLS IN THE PAST YEAR CURRENT MEDICATIONS TAKING TOPAMAX 200 MG TABLET 1 TABLET ORALLY BEFORE BEDTIME TAKING REMERON 30 MG TABLET 1 TABLET BEFORE BEDTIME IN THE EVENING ORALLY ONCE A DAY TAKING SYNTHROID 125 MCG TABLET 1 TABLET ORALLY ONCE A DAY TAKING KLONOPIN 1 MG TABLET 1 TABLET ORALLY BID TAKING VENTOLIN HFA 108 (90 BASE) MCG/ACT AEROSOL SOLUTION 2 PUFFS NEEDED INHALATION EVERY 4 HRS TAKING VITAMIN D 1000 UNIT TABLET 1 CAPSULE ORALLY ONCE DAILY TAKING PANTOPRAZOLE SODIUM 40 MG TABLET DELAYED RELEASE 1 TABLET ORALLY ONCE A DAY TAKING COMBIVENT 120-20 MCG/ACT AEROSOL 1 PUFFS INHALATION FOUR TIMES A DAY TAKING SEROQUEL 400 MG TABLET 1 TABLET AT BEDTIME ORALLY ONCE A DAY TAKING ALBUTEROL SOLUTION NEBULIZER BID TAKING MULTI FOR HER 50+ 1 CAP ORALLY DAILY TAKING LIDOCAINE HCL JELLY ASSISTED 2 % CREAM SMALL AMT EXTERNALLY TO LOW BACK Q8H PRN TAKING CYCLOBENZAPRINE HCL 5 MG TABLET 1 TABLET ORALLY THREE TIMES A DAY PRN FOR SEVERE MUSCLE SPASM PAIN TAKING FLOMAX 0.4 MG CAPSULE 1 CAPSULE ORALLY ONCE A DAY TAKING HYDROCODONE-ACETAMINOPHEN 10-325 MG TABLET 1 ORALLY Q8H PRN MDD2 NOT-TAKING GARCÍA CATHETER 2-WAY PEDIATRIC - MISCELLANEOUS DIRECTED PLACE 16 IRISH GARCÍA INTRAVESICALLY AND CHANGE MONTHLY AND PRN NOT-TAKING LIDOCAINE 2 % GEL DIRECTED PLACE INTRAURETHRALLY PRIOR TO GARCÍA CATH PLACEMENT NOT-TAKING FLOMAX 0.4 MG CAPSULE 1 CAPSULE ORALLY ONCE A DAY NOT-TAKING IBUPROFEN 400 MG TABLET 1 TABLET WITH FOOD OR MILK NEEDED ORALLY THREE TIMES A DAY NOT-TAKING BETHANECHOL CHLORIDE 50 MG TABLET 1-2 TABLET AFTER MEALS ORALLY THREE TIMES A DAY NOT-TAKING LIDOCAINE HCL JELLY ASSISTED 2 % JELLY 5 ML1 APPLICATION TO AFFECTED AREA NEEDED INTRAVESICALLY TIME AT CYSTOSCOPY NOT-TAKING CIPRO 500 MG TABLET 1 TABLET ORALLY TWICE A DAY NOT-TAKING BARD URETHRAL CATHETER 16" - MISCELLANEOUS DIRECTED NOT-TAKING BACTRIM DS 800-160 MG TABLET 1 TABLET ORALLY DIRECTED- 1 HOUR PRIOR TO CYSTOSCOPY NOT-TAKING PERCOCET 5-325 MG TABLET 1 TABLET NEEDED ORALLY EVERY 6 HRS, MDD 4 NOT-TAKING FLOMAX 0.4 MG CAPSULE 1 CAPSULE ORALLY ONCE A DAY NOT-TAKING HYDROCODONE-ACETAMINOPHEN 7.5-325 MG TABLET 1 ORALLY EVERY 8HRS PRN MDD3 NOT-TAKING ZYPREXA 5 MG TABLET 1 TABLET ORALLY ONCE A DAY NOT-TAKING GEODON 40 MG CAPSULE 1 CAPSULE WITH FOOD ORALLY TWICE A DAY NOT-TAKING BREO ELLIPTA 100-25 MCG/INH AEROSOL POWDER BREATH ACTIVATED 1 PUFF INHALATION ONCE A DAY NOT-TAKING INVEGA 3 MG TABLET EXTENDED RELEASE 24 HOUR 1 TABLET ORALLY ONCE A DAY NOT-TAKING PRILOSEC 20 MG CAPSULE DELAYED RELEASE 1 CAPSULE ORALLY TWICE DAILY NOT-TAKING ESTRACE 0.1 MG/GM CREAM 0.5 GRAMS VAGINAL 3X PER WEEK MEDICATION LIST REVIEWED AND RECONCILED WITH THE PATIENT PAST MEDICAL HISTORY HYPOTHYROID ACID REFLUX ESOPHAGEAL REFLUX COPD SCHIZOAFFECTIVE DISORDER LOW BACK PAIN LEFT LEG PAIN SACROILIAC JOINT PAIN KIDNEY STONES UMBILICAL HERNIA STAGE 3 KIDNEY DISEASE ALLERGIES TETRACYCLINE HCL: RASH, VOMITING: ALLERGY MOTRIN: NAUSEA: SIDE EFFECTS RISPERDAL: ANAPHYLAXIS: ALLERGY TRAZADONE SOCIAL HISTORY GENERAL: TOBACCO USE ARE YOU A:CURRENT SMOKER COUNSERLING DONE ARE YOU INTERESTED IN QUITTING?NOT READY TO QUIT COUNSELED THE PATIENT ON SMOKING EFFECTS, EDUCATION LARKCBVF67/21/2016 HOW MANY CIGARETTES A DAY DO YOU SMOKE?11-20 HOW SOON AFTER YOU WAKE UP DO YOU SMOKE YOUR FIRST CIGARETTE?31-60 MIN HOW OFTEN DO YOU SMOKE CIGARETTES?EVERY DAY PATIENT COUNSELED ON THE DANGERS OF TOBACCO USE AND URGED TO QUIT:05/01/2016 ALCOHOL SCREENING DID YOU HAVE A DRINK CONTAINING ALCOHOL IN THE PAST YEAR?NO POINTS0 INTERPRETATIONNEGATIVE RECREATIONAL DRUG USE DRUG USE? NO . CAFFEINE CAFFEINE USE?YES HOW OFTEN AND HOW MUCH? 4-5 CUPS COFFEE DAILY SEXUAL HX HAD SEX IN THE LAST 12 MONTHS (VAGINAL, ORAL, OR ANAL)?NO HAVE YOU EVER HAD AN STD?NO OCCUPATION: DISABLED. DIET: REGULAR. EXERCISE: NO REGULAR EXERCISE. MARITAL STATUS: . OTHERS AT HOME: NONE. EVANGELICAL NO TENRIISM BELIEFS THAT WOULD IMPACT HEALTH CARE. LANGUAGE TAJIK. 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 CONSTITUTIONAL: ANY CHANGE IN YOUR MEDICAL CONDITION? NO . CHILLS NO . FEVER NO . INFECTION: DO YOU HAVE NEW INFECTIONS? NO . DO YOU HAVE HISTORY OF MRSA? NO . MUSCULOSKELETAL: ANY NEW PATTERNS OF PAIN OR NUMBNESS? NO . GASTROENTEROLOGY: ANY NEW CHANGE IN BOWEL CONTROL? NO . GENITOURINARY: ANY NEW CHANGE IN BLADDER CONTROL? NO . IS THERE A CHANCE YOU COULD BE ? NO . HEMATOLOGY/LYMPH: DO YOU TAKE ANY BLOOD THINNERS? (FOR EXAMPLE- COUMADIN, PLAVIX, AGGRENOX, PLATEL, PRADAXA, OR XARELTO) NO . WHEN WAS YOUR LAST DOSE? DATE: TIME: . NEUROLOGY: HAVE YOU FALLEN IN THE PAST 6 MONTHS? NO . ANY NEW EXTREMITY NUMBNESS OR WEAKNESS? NO . CARDIOLOGY: DO YOU HAVE A PACEMAKER OR DEFIBRILLATOR? NO . RESPIRATORY: HAVE YOU BEEN SICK IN THE PAST WEEK? NO . FEVER NO . FLU LIKE SYMPTOMS? NO . COUGH NO . INTEGUMENTARY: DO YOU HAVE ANY RASHES OR OPEN SORES? NO . ALLERGIC/IMMUNO: ARE YOU ALLERGIC TO SHELLFISH OR IV DYE? NO . ANY NEW ALLERGIES? NO . PSYCHIATRIC: DO YOU HAVE THOUGHTS OF HURTING YOURSELF OR SOMEONE ELSE? NO . ARE YOU ABUSED, NEGLECTED, OR IN AN UNSAFE ENVIRONMENT? NO . ENDOCRINOLOGY: ARE YOU DIABETIC? NO . OTHER: DO YOU NEED ANY PRESCRIPTIONS? NO . IF YES, PLEASE LIST: ____ . ANY NEW PROBLEMS WITH YOUR MEDICATIONS? NO . WHEN DID YOU LAST EAT? ____ . WHEN DID YOU LAST DRINK? ____ . WHAT DID YOU LAST DRINK? ____ . NAME OF PERSON DRIVING YOU HOME? ____ . DO YOU HAVE ANY OTHER QUESTIONS OR CONCERNS NO . VITAL SIGNS WT 196.8 LBS, HT 63 IN, BMI 34.86 INDEX, BP 127/79 MM HG, HR 82 /MIN, RR 18 /MIN, TEMP 98.8 F, OXYGEN SAT % 92%, NA INITIALS AW 0850, REVIEWED BY: DARREN. EXAMINATION GENERAL EXAMINATION: LUNGS:LUNG SOUNDS ARE CLEAR. HEART:HEART RATE REGULAR. MUSCULOSKELETAL:*, MUSCLE STRENGTH TESTING 5/5 BILATERAL, PALPATION: POSITIVE FOR PAIN OVER L/S SPINE. POSITIVE FOR PAIN OVER L/S PARSPINALS. DIAGNOSTIC: . ASSESSMENTS CHRONIC BILATERAL LOW BACK PAIN WITH BILATERAL SCIATICA - M54.42 (PRIMARY) CHRONIC PRESCRIPTION OPIATE USE - Z79.891 TREATMENT CHRONIC BILATERAL LOW BACK PAIN WITH BILATERAL SCIATICA REFILL CYCLOBENZAPRINE HCL TABLET, 5 MG, 1 TABLET, ORALLY, THREE TIMES A DAY PRN FOR SEVERE MUSCLE SPASM PAIN, 30 DAY(S), 90, REFILLS 1 REFILL HYDROCODONE-ACETAMINOPHEN TABLET, 10-325 MG, 1, ORALLY, Q8H PRN MDD2, 30 DAY(S), 60, REFILLS 0 START TRAMADOL HCL TABLET, 50 MG, 1 TABLET NEEDED, ORALLY, MIDDAY MDD1, 30 DAY(S), 30, REFILLS 2 NOTES: ISTOP REGISTRY [id number] RISKS AND BENEFITS OF NARCOTIC/OPIOD MEDICATIONS WERE REVIEWED WITH PATIENT - THIS INCLUDES BUT IS NOT LIMITED TO RISK OF DEPENDANCE/DEVELOPMENT OF ADDICTION, MOOD DISTURBANCE AND DEPRESSION, OSTEOPOROSIS, HORMONAL AND LABIDAL CHANGES, RESPIRATORY DEPRESSION AND . PATIENT IS ADVISED NOT TO DRIVE WHILE ON THESE MEDICATIONS, AND DEMNOSTRATES COMPLLIANCE. BRINGS IN MEDICATIONS WHICH IS APPROPRIATE FOR WHAT WAS DISPENSED. RECENT URINE TOXICOLOGY REVIEWED. NO UNAUTHORIZED MEDICATIONS. NO ILLICIT SUBSTANCES AND PRESCRIBED MEDICATIONS WERE PRESENT. PREVENTIVE MEDICINE PAIN CLINIC TEACHING: MEDICATIONS TRAMADOL TEACHING DONE AND ADDITIONAL INFORMATION GIVEN. PATIENT VERBALIZES UNDERSTANDING.. PROCEDURE CODES FA211 ESTABILISHED PATIENT [facility] CHARGE DISPOSITION & COMMUNICATION FOLLOW UP 3 MONTHS ELECTRONICALLY SIGNED BY AJ MORATAYA ON 03/03/2017 AT 07:38 AM EDT DISCLAIMER : THIS IS A VISIT SUMMARY EXTRACTED FROM THE [employer] CHART. IT IS NOT A COPY OF THE [employer] PROGRESS NOTE. PHILLIP
== END ==
LOC: M PAIN 08:45
PROVIDERS: ATTEND Nurse Practitioner Family
DX: G89.29 Other chronic pain (principal); M54.42 Lumbago with sciatica, left side; E03.9 Hypothyroidism, unspecified; K21.9 Gastro-esophageal reflux disease without esophagitis; J44.9 Chronic obstructive pulmonary disease, unspecified; F25.9 Schizoaffective disorder, unspecified; N18.3 Chronic kidney disease, stage 3 (moderate); F17.210 Nicotine dependence, cigarettes, uncomplicated; Z88.1 Allergy status to other antibiotic agents; Z88.6 Allergy status to analgesic agent; Z88.8 Allergy status to other drugs, medicaments and biological substances; Z79.891 Long term (current) use of opiate analgesic; Z79.899 Other long term (current) drug therapy

== ENCOUNTER → 2017-02-22 | Outpatient (REF) | payer OTHER | LOC: M LAB REF 09:41 | PROVIDERS: ATTEND Physician Assistant Medical | DX: R30.0 Dysuria (principal) ==

== ENCOUNTER → 2017-02-25 | Outpatient (CLI) | payer OTHER ==
[2017-02-25 08:49] LABS: MEAN CORPUSCULAR HGB CONC 32.5 g/dl (32.0-36.5); MEAN CORPUSCULAR VOLUME 92.4 fl (80.0-96.0); RED CELL DISTRIBUTION WIDTH 13.3 % (11.5-14.5); WHITE BLOOD COUNT 6.7 10^3/uL (4.0-10.0)
[2017-02-25 09:15] LABS: CALCIUM LEVEL 8.5 MG/DL (8.5-10.1); CREATININE FOR GFR 1.32 MG/DL (0.55-1.02); GLOMERULAR FILTRATION RATE 43.9 (>51); POTASSIUM SERUM 4.1 MEQ/L (3.5-5.1)
--- NOTE | 2017-02-26 05:23 | REP ---
Clinical: Preoperative assessment . Comparison: 09/04/2016 . Technique: PA and lateral. Findings: The mediastinum and cardiac silhouette are normal. Airway is patent and midline. The lung arriaga demonstrate chronic interstitial changes without acute consolidation, effusion, or pneumothorax. The skeletal structures are intact and normal. Impression: 1. No acute cardiopulmonary process. Signed by Kuldeep Borjas MD 02/26/2017 05:14 A
== END ==
LOC: M LAB 08:22
PROVIDERS: ATTEND Podiatrist Foot & Ankle Surgery
DX: Z01.818 Encounter for other preprocedural examination (principal); M20.42 Other hammer toe(s) (acquired), left foot

== ENCOUNTER → 2017-02-26 | Outpatient (REF) | payer OTHER ==
[2017-02-26 18:39] LABS: RBC, URINE 0-1 /hpf (0-3); SQUAMOUS EPITHELIAL CELL URINE SMALL AMOUNT /hpf (SMALL AMT)
[2017-02-26 18:40] LABS: BACTERIA, URINE SMALL AMOUNT; HYALINE CAST, URINE NONE SEEN /lpf (0-1); MICROSCOPIC EXAM PERFORMED
== END ==
LOC: M SMT 17:19
PROVIDERS: ATTEND Specialist
DX: G89.29 Other chronic pain (principal)

== ENCOUNTER 2017-03-26 06:01 | Day surgery (SDC) | payer OTHER ==
[~2017-03-26] VITALS: Ht 160 cm; Wt 87.5 kg
[2017-03-26] MEDS ORDERED: ceFAZolin 2 GM/D5W 50 ML IV BAG (J0690) As Ordered ONE (06:40)
[2017-03-26] MEDS ORDERED: LR 1,000 ML IV ONE (07:00)
[2017-03-26] MEDS ORDERED: LIDOCAINE 1% SDV INJ 30 ML VIAL As Ordered ONE (07:09)
[2017-03-26] MEDS ORDERED: BUPIVACAINE HCL 0.5% 30 ML VIAL As Ordered ONE (07:10)
[2017-03-26] MEDS ORDERED: dexameTHASONE 4 MG/ML 1ML VIAL (J1100) As Ordered ONE ×2 (07:10→08:01)
[2017-03-26] MEDS ORDERED: LIDOCAINE 2% INJ 100 MG/5 ML SDV (FOR ANES.) As Ordered ONE (07:15)
[2017-03-26] MEDS ORDERED: MIDAZOLAM INJ 2 MG/2 ML VIAL (J2250) As Ordered ONE (07:15)
[2017-03-26] MEDS ORDERED: fentaNYL 100 MCG/2 ML INJECTION (J3010) As Ordered ONE (07:15)
[2017-03-26] MEDS ORDERED: PROPOFOL 200 MG/20 ML VIAL As Ordered ONE (07:15)
[2017-03-26] MEDS ORDERED: METOCLOPRAMIDE INJ 10MG/2ML VIAL (J2765) As Ordered ONE (08:01)
[2017-03-26] MEDS ORDERED: ONDANSETRON 4MG/2ML VIAL (J2405) As Ordered ONE (08:01)
[2017-03-26] MEDS ORDERED: HYDR-3713 PO (08:57)
[2017-03-26] MEDS ORDERED: NORCO, ANEXSIA 5/325MG TABLET (HYDROcodone/ACETAMINOPHEN) As Ordered ONE (09:22)
[2017-03-26] MEDS ORDERED: NORCO, ANEXSIA 5/325MG TABLET (HYDROcodone/ACETAMINOPHEN) PO PRN ×2 (09:30)
[2017-03-26] MEDS ORDERED: ONDANSETRON 4MG/2ML VIAL (J2405) IV PRN (09:30)
[2017-03-26] MEDS ORDERED: LR 1,000 ML IV SCH (09:30)
--- NOTE | 2017-03-26 09:41 | RO ---
DATE OF PROCEDURE: 03/26/2017 PREPROCEDURE DIAGNOSES: Left foot bunion, fifth hammertoe and painful retained hardware. POSTPROCEDURE DIAGNOSES: Left foot bunion, fifth hammertoe and painful retained hardware. PROCEDURE: Left foot bunionectomy, fifth hammertoe correction, and screw removal. SURGEON: Go Castle DPM MILLINERY DEPARTMENT MANAGER: none ANESTHESIA: Monitored anesthesia care with preoperative injection of 20 mL of 1:1 mixture of 1% lidocaine plain and 0.5% Marcaine plain. ESTIMATED BLOOD LOSS: Minimal. MATERIALS: #3-0 and #4-0 Vicryl, #4-0 nylon. INJECTABLES: 1 mL of Decadron. COMPLICATIONS: None. CONDITION: Stable. Gabbi Guzman is a 61-year-old female who presents to [facility] with complaints of painful bunion and fifth hammertoe. She has had bunionectomy in the past, but has persisting pain at the bone and joint. She presents today for surgical correction. The patient's side and site were identified and marked in the preoperative holding area. Consent was reviewed and obtained. All risks, complications and alternatives to the procedure explained to the patient in detail. All questions were answered. DESCRIPTION OF PROCEDURE: The patient was brought to the operating room and placed on the operating room table in the supine position. Monitored anesthesia care was delivered by the anesthesia team. Preoperative injection of 20 mL of 1:1 mixture of 1% lidocaine plain and 0.5% Marcaine plain were injected to the left foot. The left foot was prepped and draped in normal sterile fashion. A tourniquet was applied to the left ankle and inflated at 250 mmHg. The patient received Ancef preoperatively. An incision was drawn over the previous scar over the first metatarsophalangeal joint with a #15 blade. Dissection was carried down until the joint capsule was identified. A linear capsulotomy was performed exposing the metatarsal head and the base of the proximal phalanx. A screw was identified in the metatarsal head, which was an Arthrex 3.5 headless screw. This was removed with a screwdriver. Similarly, the screw in the base of the proximal phalanx was identified. This was a 2.5 headless Arthrex screw and this was also removed with a screwdriver. Following this, medial eminence of the metatarsal head was resected with saggital saw and the base of the proximal phalanx was resected with saggital saw. A portion of the capsule was interposed into the joint space and capsular repair was performed with #3-0 Vicryl. Subcutaneous closure with #4-0 Vicryl and skin closure with #4-0 nylon. Attention was then paid to the fifth toe. A dorsal incision was drawn and carried through with a #15 blade. Dissection was carried down until the extensor tendon was identified. The tendon was transected to the proximal interphalangeal joint level. Capsule was entered and the collateral ligaments were released, exposing the proximal phalanx head. This was resected with saggital saw. Next a dorsal capsulotomy was performed at the metatarsophalangeal joint. Extensor tendon was repaired with #3-0 Vicryl and skin closure was performed with #4-0 Vicryl. 1 mL of Decadron was injected. Sterile dressings were applied. The tourniquet was deflated. The patient was brought to the postanesthesia care unit with vital signs stable, neurovascular status intact. She will be partial weightbearing in a postoperative shoe with her walker. She will followup in the office in 2 days. PHILLIP
[2017-03-26 10:10] VITALS: BP 134/79
== END 2017-03-26 10:24 | disposition home or self-care (01) ==
LOC: M SDC 06:01
PROVIDERS: ATTEND Podiatrist Foot & Ankle Surgery
DX: M20.12 Hallux valgus (acquired), left foot (principal); M20.42 Other hammer toe(s) (acquired), left foot; E03.9 Hypothyroidism, unspecified; K44.9 Diaphragmatic hernia without obstruction or gangrene; K58.9 Irritable bowel syndrome, unspecified; K21.9 Gastro-esophageal reflux disease without esophagitis; M12.9 Arthropathy, unspecified; M54.9 Dorsalgia, unspecified; F41.9 Anxiety disorder, unspecified; F43.10 Post-traumatic stress disorder, unspecified; J44.9 Chronic obstructive pulmonary disease, unspecified; R06.02 Shortness of breath; N18.3 Chronic kidney disease, stage 3 (moderate); R32 Unspecified urinary incontinence; Z88.1 Allergy status to other antibiotic agents; Z88.6 Allergy status to analgesic agent; Z88.8 Allergy status to other drugs, medicaments and biological substances; Z79.899 Other long term (current) drug therapy; Z90.710 Acquired absence of both cervix and uterus; Z87.440 Personal history of urinary (tract) infections; Z96.1 Presence of intraocular lens; Z87.891 Personal history of nicotine dependence

== ENCOUNTER 2017-04-11 22:05 | Emergency (ER) | payer OTHER ==
[~2017-04-11] VITALS: Ht 160 cm; Wt 86.4 kg
[2017-04-12 07:40] VITALS: BP 143/81
--- NOTE | 2017-04-12 08:11 | REP ---
Chest two views HISTORY: Cough Comparison: 02/25/2017 The lungs are clear. The heart is normal in size. The pulmonary vasculature is normal in appearance. The bony structure is intact. IMPRESSION: No acute disease. Signed by Rm Riojas MD 04/12/2017 08:03 A
== END 2017-04-12 07:41 | disposition home or self-care (01) ==
LOC: M ED 22:05
DX: J44.9 Chronic obstructive pulmonary disease, unspecified (principal); E07.9 Disorder of thyroid, unspecified; F25.9 Schizoaffective disorder, unspecified; Z79.899 Other long term (current) drug therapy; Z88.8 Allergy status to other drugs, medicaments and biological substances; Z88.1 Allergy status to other antibiotic agents; Z88.5 Allergy status to narcotic agent; Z88.6 Allergy status to analgesic agent

== ENCOUNTER → 2017-04-25 | Outpatient (REF) | payer OTHER | LOC: M SFHCPLAZ 09:40 | PROVIDERS: ATTEND Family Medicine | DX: E03.9 Hypothyroidism, unspecified (principal); R31.0 Gross hematuria ==

== ENCOUNTER → 2017-04-29 | Outpatient (CLI) | payer OTHER | LOC: M PAIN 14:30 | DX: G89.29 Other chronic pain (principal); M54.42 Lumbago with sciatica, left side; N18.3 Chronic kidney disease, stage 3 (moderate); E03.9 Hypothyroidism, unspecified; E78.5 Hyperlipidemia, unspecified; E55.9 Vitamin D deficiency, unspecified; K21.9 Gastro-esophageal reflux disease without esophagitis; J44.9 Chronic obstructive pulmonary disease, unspecified; F25.9 Schizoaffective disorder, unspecified; K46.9 Unspecified abdominal hernia without obstruction or gangrene; Z88.0 Allergy status to penicillin; Z88.6 Allergy status to analgesic agent; Z88.8 Allergy status to other drugs, medicaments and biological substances; Z79.891 Long term (current) use of opiate analgesic; Z79.899 Other long term (current) drug therapy; Z87.891 Personal history of nicotine dependence | CPT/HCPCS: G0463 ==

== ENCOUNTER 2017-05-02 11:21 | Emergency (ER) | payer OTHER ==
[~2017-05-02] VITALS: Ht 160 cm; Wt 89.5 kg
[2017-05-02] MEDS ORDERED: HYDR-3716 PO (11:36)
[2017-05-02] MEDS ORDERED: PRED20TA PO (12:59)
[2017-05-02 13:28] VITALS: BP 136/79
--- NOTE | 2017-05-02 13:42 | REP ---
Chest x-ray: Two views. History: Short of breath, cough, history of COPD. Comparison chest x-ray is from April 12, 2017 as well as February 25, 2017. Findings: Frontal and lateral views of the chest show clear symmetrically aerated lungs and sharp pleural angles. Cardiomediastinal silhouette is unremarkable. No bony abnormality is seen. Pulmonary vasculature is not increased. No acute infiltrate is noted. There are clips in the right upper quadrant. Impression: No active disease. Signed by Franklyn King MD 05/02/2017 01:33 P
== END 2017-05-02 13:29 | disposition home or self-care (01) ==
LOC: M ED 11:21
DX: R06.00 Dyspnea, unspecified (principal); R05 Cough; J43.9 Emphysema, unspecified; F41.9 Anxiety disorder, unspecified; F25.9 Schizoaffective disorder, unspecified; Z79.899 Other long term (current) drug therapy; Z79.51 Long term (current) use of inhaled steroids; Z88.1 Allergy status to other antibiotic agents; Z88.5 Allergy status to narcotic agent; Z88.8 Allergy status to other drugs, medicaments and biological substances; F17.210 Nicotine dependence, cigarettes, uncomplicated

== ENCOUNTER → 2017-05-08 | Outpatient (REF) | payer OTHER ==
[2017-05-08 11:14] LABS: ANION GAP 8 MEQ/L (8-16); BLOOD UREA NITROGEN 20 MG/DL (7-18); CALCIUM LEVEL 8.9 MG/DL (8.5-10.1); CARBON DIOXIDE LEVEL 26 MEQ/L (21-32); CHLORIDE LEVEL 108 MEQ/L (98-107); CREATININE FOR GFR 1.33 MG/DL (0.55-1.02); GLOMERULAR FILTRATION RATE 43.5 (>51); GLUCOSE, FASTING 117 MG/DL (70-105); POTASSIUM SERUM 4.3 MEQ/L (3.5-5.1); SODIUM LEVEL 142 MEQ/L (136-145)
== END ==
LOC: M SFHCPLAZ 08:28
DX: N18.3 Chronic kidney disease, stage 3 (moderate) (principal)
CPT/HCPCS: 36415

== ENCOUNTER 2017-05-14 11:32 | Emergency (ER) | payer OTHER | END 2017-05-14 13:34 | disposition home or self-care (01) | LOC: M ED 11:32 | DX: S39.002A Unspecified injury of muscle, fascia and tendon of lower back, initial encounter (principal); S80.01XA Contusion of right knee, initial encounter; V48.4XXA Person boarding or alighting a car injured in noncollision transport accident, initial encounter; Y92.410 Unspecified street and highway as the place of occurrence of the external cause; Y93.89 Activity, other specified; Y99.8 Other external cause status; Z79.899 Other long term (current) drug therapy; Z79.51 Long term (current) use of inhaled steroids; Z88.1 Allergy status to other antibiotic agents; Z88.5 Allergy status to narcotic agent; Z88.8 Allergy status to other drugs, medicaments and biological substances; F17.210 Nicotine dependence, cigarettes, uncomplicated | CPT/HCPCS: 72110 ==

== ENCOUNTER → 2017-06-12 | Outpatient (CLI) | payer OTHER | LOC: M PAIN 10:45 | DX: G89.29 Other chronic pain (principal); M54.42 Lumbago with sciatica, left side; K21.9 Gastro-esophageal reflux disease without esophagitis; J44.9 Chronic obstructive pulmonary disease, unspecified; F25.9 Schizoaffective disorder, unspecified; N18.3 Chronic kidney disease, stage 3 (moderate); E03.9 Hypothyroidism, unspecified; K58.0 Irritable bowel syndrome with diarrhea; E78.5 Hyperlipidemia, unspecified; K76.0 Fatty (change of) liver, not elsewhere classified; E55.9 Vitamin D deficiency, unspecified; F17.210 Nicotine dependence, cigarettes, uncomplicated; Z79.899 Other long term (current) drug therapy; Z79.891 Long term (current) use of opiate analgesic; Z88.8 Allergy status to other drugs, medicaments and biological substances | CPT/HCPCS: G0463 ==

== ENCOUNTER → 2017-06-20 | Day surgery (SDC) | payer OTHER ==
[~2017-06-20] MED LIST changes: -ALBU17IN INH; -ALBU83IN INH; -ARNU1INH INH; -BREO1INH INH; -CIPR-249 PO; -CIPR500T3 PO; -CLON0.5T PO; -CLON1TAB PO; -COMBAER6 INH; -CYCL10TA PO; -CYCL5TA PO; -DICL13PA TD; -DRIS50002 PO; -FLOM5CAP PO; +GLYCOPYRROLATE INJ 0.2 MG/ML 2 ML VIAL As Ordered; -HYDR-3713 PO; -HYDR-3716 PO; -HYDR-3719 PO; -HYDR1SOL PO; -INVE3TAB2 PO; -IPRASOL4 IN; -IPRASOL4 INH; +KETOROLAC 60 MG/2 ML VIAL (J1885) As Ordered; -LEVO125T4 PO; -LIDO4CRE2 EX; +LIDOCAINE 2% INJ 100 MG/5 ML SYRINGE As Ordered; +LR 1,000 ML IV; +MEPERIDINE INJ 25 MG/ML VIAL (J2175) IV; +METOCLOPRAMIDE INJ 10MG/2ML VIAL (J2765) IV; +MIDAZOLAM INJ 2 MG/2 ML VIAL (J2250) As Ordered; -MIRT30TA3 PO; -MULT1TAB15 PO; -MULTLIQ7 PO; +NEOSTIGMINE 10 MG/10 ML VIAL (J2710) As Ordered; -NICO21DI31 TOP; +NORCO, ANEXSIA 5/325MG TABLET (HYDROcodone/ACETAMINOPHEN) PO; -NORCOTAB PO; +ONDANSETRON 4MG/2ML VIAL (J2405) As Ordered; +ONDANSETRON 4MG/2ML VIAL (J2405) IV; -PANT40TA2 PO; -PERC5TAB12 PO; -PERCOCET PO; -PRIL40CA PO; +PROPOFOL 200 MG/20 ML VIAL As Ordered; -RANI150T PO; +ROCURONIUM BROMIDE 50 MG/5 ML VIAL As Ordered; +SCOPOLAMINE 1MG TRANSDERMAL PATCH As Ordered; -SERO200T PO; -TOPA200T7 PO; -VITA100067 PO; -ZANA4TAB PO; +dexameTHASONE 4 MG/ML 1ML VIAL (J1100) As Ordered; +fentaNYL 100 MCG/2 ML INJECTION (J3010) As Ordered; +fentaNYL 100 MCG/2 ML INJECTION (J3010) IV
[2017-06-20] MEDS: SCOPOLAMINE 1MG TRANSDERMAL PATCH TOP (07:25)
[2017-06-20] MEDS: LR 1,000 ML IV (07:26)
[2017-06-20] MEDS: BUPIVACAINE HCL 0.25% 30 ML VIAL As Ordered (10:48)
[2017-06-20] MEDS: LIDOCAINE W/EPINEPHRINE 1% 20ML VIAL As Ordered (10:48)
[2017-06-20] MEDS: PERCOCET 5MG/325MG TAB PO ×2 (11:24→11:54)
== END | disposition home or self-care (01) ==
LOC: M SDC 05:37
DX: K43.6 Other and unspecified ventral hernia with obstruction, without gangrene (principal); K66.0 Peritoneal adhesions (postprocedural) (postinfection); E03.9 Hypothyroidism, unspecified; K44.9 Diaphragmatic hernia without obstruction or gangrene; K58.9 Irritable bowel syndrome, unspecified; K21.9 Gastro-esophageal reflux disease without esophagitis; M12.9 Arthropathy, unspecified; F41.9 Anxiety disorder, unspecified; F43.10 Post-traumatic stress disorder, unspecified; J44.9 Chronic obstructive pulmonary disease, unspecified; R06.09 Other forms of dyspnea; G47.30 Sleep apnea, unspecified; N18.3 Chronic kidney disease, stage 3 (moderate); R33.9 Retention of urine, unspecified; Z88.1 Allergy status to other antibiotic agents; Z88.5 Allergy status to narcotic agent; Z88.6 Allergy status to analgesic agent; Z88.8 Allergy status to other drugs, medicaments and biological substances; Z79.899 Other long term (current) drug therapy; Z90.710 Acquired absence of both cervix and uterus; Z87.891 Personal history of nicotine dependence; Z87.442 Personal history of urinary calculi; Z96.1 Presence of intraocular lens
CPT/HCPCS: 49653

== ENCOUNTER → 2017-06-30 | Outpatient (CLI) | payer OTHER | LOC: M RAD 06:42 | DX: M51.36 Other intervertebral disc degeneration, lumbar region (principal) | CPT/HCPCS: 72148 ==

== ENCOUNTER → 2017-07-01 | Outpatient (CLI) | payer OTHER ==
[~2017-07-01] MED LIST changes: +BUPIVACAINE HCL 0.25% 30 ML VIAL As Ordered; -GLYCOPYRROLATE INJ 0.2 MG/ML 2 ML VIAL As Ordered; +ISOVUE-M 300 61% 15ML VIAL (Q9967) As Ordered; -KETOROLAC 60 MG/2 ML VIAL (J1885) As Ordered; +LIDOCAINE 1% SDV INJ 30 ML VIAL As Ordered; -LIDOCAINE 2% INJ 100 MG/5 ML SYRINGE As Ordered; -LR 1,000 ML IV; -MEPERIDINE INJ 25 MG/ML VIAL (J2175) IV; -METOCLOPRAMIDE INJ 10MG/2ML VIAL (J2765) IV; -MIDAZOLAM INJ 2 MG/2 ML VIAL (J2250) As Ordered; -NEOSTIGMINE 10 MG/10 ML VIAL (J2710) As Ordered; -NORCO, ANEXSIA 5/325MG TABLET (HYDROcodone/ACETAMINOPHEN) PO; -ONDANSETRON 4MG/2ML VIAL (J2405) As Ordered; -ONDANSETRON 4MG/2ML VIAL (J2405) IV; -PROPOFOL 200 MG/20 ML VIAL As Ordered; -ROCURONIUM BROMIDE 50 MG/5 ML VIAL As Ordered; -SCOPOLAMINE 1MG TRANSDERMAL PATCH As Ordered; +TRIAMCINOLONE ACETONIDE SUSP 40 MG/ML VIAL (J3301) As Ordered; -dexameTHASONE 4 MG/ML 1ML VIAL (J1100) As Ordered; -fentaNYL 100 MCG/2 ML INJECTION (J3010) As Ordered; -fentaNYL 100 MCG/2 ML INJECTION (J3010) IV
== END ==
LOC: M PAIN 10:15
DX: G89.29 Other chronic pain (principal); M46.1 Sacroiliitis, not elsewhere classified; M53.88 Other specified dorsopathies, sacral and sacrococcygeal region; N18.3 Chronic kidney disease, stage 3 (moderate); E03.9 Hypothyroidism, unspecified; E78.5 Hyperlipidemia, unspecified; K21.9 Gastro-esophageal reflux disease without esophagitis; J44.9 Chronic obstructive pulmonary disease, unspecified; F25.9 Schizoaffective disorder, unspecified; K46.9 Unspecified abdominal hernia without obstruction or gangrene; K76.0 Fatty (change of) liver, not elsewhere classified; F17.200 Nicotine dependence, unspecified, uncomplicated; Z79.899 Other long term (current) drug therapy; Z88.1 Allergy status to other antibiotic agents; Z88.6 Allergy status to analgesic agent; Z88.8 Allergy status to other drugs, medicaments and biological substances
CPT/HCPCS: J3301

== ENCOUNTER → 2017-07-02 | Outpatient (REF) | payer OTHER | LOC: M SFHCWAGY 10:57 | DX: Z12.72 Encounter for screening for malignant neoplasm of vagina (principal); R31.29 Other microscopic hematuria | CPT/HCPCS: 87086 ==

== ENCOUNTER → 2017-07-08 | Outpatient (CLI) | payer OTHER | LOC: M PAIN 11:45 | DX: M54.42 Lumbago with sciatica, left side (principal); K21.9 Gastro-esophageal reflux disease without esophagitis; J44.9 Chronic obstructive pulmonary disease, unspecified; E03.9 Hypothyroidism, unspecified; N18.3 Chronic kidney disease, stage 3 (moderate); E78.5 Hyperlipidemia, unspecified; E55.9 Vitamin D deficiency, unspecified; F25.9 Schizoaffective disorder, unspecified; Z79.891 Long term (current) use of opiate analgesic; Z79.899 Other long term (current) drug therapy; Z88.8 Allergy status to other drugs, medicaments and biological substances | CPT/HCPCS: G0463 ==

== ENCOUNTER → 2017-07-09 | Outpatient (REF) | payer OTHER ==
[2017-07-09 16:17] LABS: APPEARANCE, URINE HAZY (CLEAR); BACTERIA, URINE AUTO NEGATIVE (NEGATIVE); BILIRUBIN, URINE AUTO NEGATIVE (NEGATIVE); BLOOD, URINE BLOOD 1+ (NEGATIVE); COLOR, URINE YELLOW (YELLOW); GLUCOSE, URINE (UA) AUTO NEGATIVE (NEGATIVE); KETONE, URINE AUTO NEGATIVE (NEGATIVE); LEUKOCYTE ESTERASE, URINE AUTO 3+ (NEGATIVE); MUCUS, URINE SMALL (NEGATIVE); NITRITE, URINE AUTO NEGATIVE (NEGATIVE); PROTEIN, URINE AUTO NEGATIVE (NEGATIVE); RBC, URINE AUTO 3 /HPF (0-3); SPECIFIC GRAVITY URINE AUTO 1.009 (1.002-1.035); SQUAMOUS EPITHELIAL CELL UR AU 2 /HPF (0-6); UROBILINOGEN, URINE AUTO 0.2 mg/dL (0.0-2.0); WBC, URINE AUTO 10 /HPF (0-3)
== END ==
LOC: M SFHCPLAZ 15:33
DX: R31.0 Gross hematuria (principal)

== ENCOUNTER → 2017-07-15 | Outpatient (CLI) | payer OTHER | LOC: M PAIN 11:15 | DX: M54.42 Lumbago with sciatica, left side (principal); J44.9 Chronic obstructive pulmonary disease, unspecified; K21.9 Gastro-esophageal reflux disease without esophagitis; N18.3 Chronic kidney disease, stage 3 (moderate); E03.9 Hypothyroidism, unspecified; E78.5 Hyperlipidemia, unspecified; F25.9 Schizoaffective disorder, unspecified; E55.9 Vitamin D deficiency, unspecified; K59.00 Constipation, unspecified; F17.210 Nicotine dependence, cigarettes, uncomplicated; Z79.891 Long term (current) use of opiate analgesic; Z79.899 Other long term (current) drug therapy; Z88.8 Allergy status to other drugs, medicaments and biological substances | CPT/HCPCS: G0463 ==

== ENCOUNTER → 2017-07-17 | Outpatient (REF) | payer OTHER ==
[2017-07-17 14:28] LABS: BACTERIA, URINE NONE SEEN; HYALINE CAST, URINE NONE SEEN /lpf (0-1); RBC, URINE 0-1 /hpf (0-3); SQUAMOUS EPITHELIAL CELL URINE SMALL AMOUNT /hpf (SMALL AMT)
[2017-07-17 14:29] LABS: MICROSCOPIC EXAM PERFORMED
== END ==
LOC: M SMT 13:30
DX: M54.42 Lumbago with sciatica, left side (principal)
CPT/HCPCS: 81015

== ENCOUNTER → 2017-07-18 | Outpatient (CLI) | payer OTHER | LOC: M WHC 09:48 | DX: Z12.31 Encounter for screening mammogram for malignant neoplasm of breast (principal) | CPT/HCPCS: 77067 ==

== ENCOUNTER → 2017-08-13 | Outpatient (CLI) | payer OTHER | LOC: M PAIN 08:45 | DX: M54.42 Lumbago with sciatica, left side (principal); G89.21 Chronic pain due to trauma; N18.3 Chronic kidney disease, stage 3 (moderate); E03.9 Hypothyroidism, unspecified; E78.5 Hyperlipidemia, unspecified; K21.9 Gastro-esophageal reflux disease without esophagitis; J44.9 Chronic obstructive pulmonary disease, unspecified; F31.9 Bipolar disorder, unspecified; K75.81 Nonalcoholic steatohepatitis (NASH); F17.210 Nicotine dependence, cigarettes, uncomplicated; Z79.899 Other long term (current) drug therapy; Z88.1 Allergy status to other antibiotic agents; Z88.6 Allergy status to analgesic agent; Z88.5 Allergy status to narcotic agent; Z88.8 Allergy status to other drugs, medicaments and biological substances | CPT/HCPCS: G0463 ==

== ENCOUNTER 2017-09-03 06:43 | Day surgery (SDC) | payer OTHER ==
[2017-09-03] MEDS ORDERED: SIMETHICONE 40MG/0.6ML DROPS 30ML As Ordered (07:01)
[2017-09-03] MEDS: NS 1,000 ML IV (07:03)
[2017-09-03] MEDS ORDERED: PROPOFOL 200 MG/20 ML VIAL As Ordered (07:15)
== END 2017-09-03 08:17 | disposition home or self-care (01) ==
LOC: M OPP 06:43
DX: R12 Heartburn (principal); K22.8 Other specified diseases of esophagus; K44.9 Diaphragmatic hernia without obstruction or gangrene; E03.9 Hypothyroidism, unspecified; K58.9 Irritable bowel syndrome, unspecified; K21.9 Gastro-esophageal reflux disease without esophagitis; R06.02 Shortness of breath; M19.90 Unspecified osteoarthritis, unspecified site; M54.9 Dorsalgia, unspecified; L03.211 Cellulitis of face; F43.10 Post-traumatic stress disorder, unspecified; F41.9 Anxiety disorder, unspecified; Z78.0 Asymptomatic menopausal state; J44.9 Chronic obstructive pulmonary disease, unspecified; G47.30 Sleep apnea, unspecified; N18.3 Chronic kidney disease, stage 3 (moderate); R33.9 Retention of urine, unspecified; Z87.442 Personal history of urinary calculi; F17.210 Nicotine dependence, cigarettes, uncomplicated; Z88.8 Allergy status to other drugs, medicaments and biological substances; Z88.1 Allergy status to other antibiotic agents; Z79.899 Other long term (current) drug therapy; Z80.3 Family history of malignant neoplasm of breast
CPT/HCPCS: 43239

== ENCOUNTER → 2017-09-17 | Outpatient (CLI) | payer OTHER | LOC: M PAIN 09:00 | DX: M54.42 Lumbago with sciatica, left side (principal); M54.10 Radiculopathy, site unspecified; G89.29 Other chronic pain; K21.9 Gastro-esophageal reflux disease without esophagitis; J44.9 Chronic obstructive pulmonary disease, unspecified; F25.9 Schizoaffective disorder, unspecified; N18.3 Chronic kidney disease, stage 3 (moderate); E03.9 Hypothyroidism, unspecified; E78.5 Hyperlipidemia, unspecified; E55.9 Vitamin D deficiency, unspecified; F17.210 Nicotine dependence, cigarettes, uncomplicated; Z79.891 Long term (current) use of opiate analgesic; Z79.899 Other long term (current) drug therapy; Z88.1 Allergy status to other antibiotic agents; Z88.5 Allergy status to narcotic agent; Z88.6 Allergy status to analgesic agent; Z88.8 Allergy status to other drugs, medicaments and biological substances | CPT/HCPCS: G0463 ==

== ENCOUNTER → 2017-09-25 | Outpatient (CLI) | payer OTHER ==
[~2017-09-25] MED LIST changes: -BUPIVACAINE HCL 0.25% 30 ML VIAL As Ordered; +ISOVUE-370 76% 100ML VIAL (Q9967) As Ordered; -ISOVUE-M 300 61% 15ML VIAL (Q9967) As Ordered; -LIDOCAINE 1% SDV INJ 30 ML VIAL As Ordered; -TRIAMCINOLONE ACETONIDE SUSP 40 MG/ML VIAL (J3301) As Ordered
== END ==
LOC: M RAD 10:19
DX: N27.0 Small kidney, unilateral (principal); R31.9 Hematuria, unspecified
CPT/HCPCS: Q9967

== ENCOUNTER → 2017-09-25 | Outpatient (CLI) | payer OTHER | LOC: M RAD 10:08 | DX: F17.210 Nicotine dependence, cigarettes, uncomplicated (principal) | CPT/HCPCS: G0297 ==

== ENCOUNTER 2017-10-01 16:02 | Emergency (ER) | payer OTHER ==
[2017-10-01 21:01] LABS: KETONE, URINE AUTO RFX NEGATIVE (NEGATIVE); NITRITE, URINE AUTO RFX NEGATIVE (NEGATIVE); RBC, URINE AUTO RFX 3 /HPF (0-3); SPECIFIC GRAVITY UR AUTO RFX 1.006 (1.002-1.035); SQUAM EPITHELIAL CELL UR AURFX 2 /HPF (0-6)
[2017-10-01] MEDS: NS 500 ML IV (21:15)
[2017-10-01 21:25] LABS: LEUKOCYTE ESTERASE UR AUTO RFX 3+ (NEGATIVE); WBC, URINE AUTO RFX 68 /HPF (0-3)
[2017-10-01 22:13] LABS: BASO # 0.1 10^3/uL (0.0-0.2); BASO % 1.3 % (0.0-1.0); EOS # 0.3 10^3/uL (0.0-0.50); EOS % 3.6 % (0.0-3.0); HEMATOCRIT 46.9 % (36.0-47.0); HEMOGLOBIN 15.3 g/dl (12.0-15.5); IMMATURE GRANULOCYTE % 0.3 % (0-3.0); LYMPH # 2.2 10^3/uL (1.5-4.5); LYMPH % 27.7 % (24.0-44.0); MEAN CORPUSCULAR HEMOGLOBIN 30.4 pg (27.0-33.0); MEAN CORPUSCULAR HGB CONC 32.6 g/dl (32.0-36.5); MEAN CORPUSCULAR VOLUME 93.2 fl (80.0-96.0); MONO # 0.8 10^3/uL (0.0-0.8); NEUTROPHILS # 4.6 10^3/uL (1.8-7.7); NEUTROPHILS % 57.1 % (36.0-66.0); PLATELET COUNT, AUTOMATED 189 10^3/uL (150-450); RED BLOOD COUNT 5.03 10^6/uL (4.00-5.40); RED CELL DISTRIBUTION WIDTH 13.1 % (11.5-14.5)
[2017-10-01 22:23] LABS: INR 0.91; PROTHROMBIN TIME 12.3 SECONDS (12.4-14.5)
[2017-10-01 22:35] LABS: ALBUMIN 3.9 GM/DL (3.2-5.2); ALBUMIN/GLOBULIN RATIO 0.93 (1.00-1.93); ALKALINE PHOSPHATASE 89 U/L (45-117); ALT/SGPT 25 U/L (12-78); AMYLASE 61 U/L (25-115); ANION GAP 3 MEQ/L (8-16); AST/SGOT 18 U/L (7-37); BILIRUBIN,DIRECT < 0.1 MG/DL (0.0-0.2); BILIRUBIN,TOTAL 0.2 MG/DL (0.2-1.0); BLOOD UREA NITROGEN 10 MG/DL (7-18); CALCIUM LEVEL 8.4 MG/DL (8.8-10.2); CARBON DIOXIDE LEVEL 30 MEQ/L (21-32); CHLORIDE LEVEL 109 MEQ/L (98-107); CREATININE FOR GFR 1.19 MG/DL (0.55-1.30); GLOMERULAR FILTRATION RATE 49.3 (>45); GLUCOSE, FASTING 84 MG/DL (70-100); LIPASE 279 U/L (73-393); POTASSIUM SERUM 3.8 MEQ/L (3.5-5.1); SODIUM LEVEL 142 MEQ/L (136-145); TOTAL PROTEIN 8.1 GM/DL (6.4-8.2)
[2017-10-02] MEDS: NORCO, ANEXSIA 5/325MG TABLET (HYDROcodone/ACETAMINOPHEN) PO (00:25)
== END 2017-10-02 01:40 | disposition home or self-care (01) ==
LOC: M ED 10-02 01:40
DX: N30.00 Acute cystitis without hematuria (principal); K43.9 Ventral hernia without obstruction or gangrene; K65.4 Sclerosing mesenteritis; K59.00 Constipation, unspecified; K76.0 Fatty (change of) liver, not elsewhere classified; N26.1 Atrophy of kidney (terminal); N28.9 Disorder of kidney and ureter, unspecified; E03.9 Hypothyroidism, unspecified; M54.9 Dorsalgia, unspecified; J44.9 Chronic obstructive pulmonary disease, unspecified; F25.9 Schizoaffective disorder, unspecified; Z87.442 Personal history of urinary calculi; Z87.891 Personal history of nicotine dependence; Z88.8 Allergy status to other drugs, medicaments and biological substances; Z88.6 Allergy status to analgesic agent; Z88.5 Allergy status to narcotic agent; Z88.1 Allergy status to other antibiotic agents; Z79.899 Other long term (current) drug therapy; Z79.51 Long term (current) use of inhaled steroids
CPT/HCPCS: 74176

== ENCOUNTER 2017-10-10 01:14 | Inpatient (IN) | payer OTHER ==
[2017-10-10] MEDS ORDERED: ISOVUE-370 76% 100ML VIAL (Q9967) As Ordered (02:12)
[2017-10-10] MEDS: NS 1,000 ML IV ×2 (02:41→05:59)
[2017-10-10 03:00] LABS: BASO % 1.1 % (0.0-1.0); EOS # 0.3 10^3/uL (0.0-0.50); EOS % 4.4 % (0.0-3.0); HEMATOCRIT 48.4 % (36.0-47.0); HEMOGLOBIN 15.4 g/dl (12.0-15.5); IMMATURE GRANULOCYTE % 0.2 % (0-3.0); LYMPH # 1.7 10^3/uL (1.5-4.5); LYMPH % 26.7 % (24.0-44.0); MEAN CORPUSCULAR HGB CONC 31.8 g/dl (32.0-36.5); MEAN CORPUSCULAR VOLUME 94.2 fl (80.0-96.0); MONO # 0.7 10^3/uL (0.0-0.8); MONO % 11.5 % (0.0-5.0); NEUTROPHILS # 3.6 10^3/uL (1.8-7.7); NEUTROPHILS % 56.1 % (36.0-66.0); PLATELET COUNT, AUTOMATED 168 10^3/uL (150-450); RED BLOOD COUNT 5.14 10^6/uL (4.00-5.40); RED CELL DISTRIBUTION WIDTH 13.1 % (11.5-14.5); WHITE BLOOD COUNT 6.4 10^3/uL (4.0-10.0)
[2017-10-10 03:01] LABS: BASO # 0.1 10^3/uL (0.0-0.2)
[2017-10-10 03:03] LABS: INR 0.97; PARTIAL THROMBOPLASTIN TIME 29.4 SECONDS (26.8-37.9)
[2017-10-10 03:05] LABS: APPEARANCE, URINE CLEAR (CLEAR); BILIRUBIN, URINE AUTO NEGATIVE (NEGATIVE); BLOOD, URINE BLOOD NEGATIVE (NEGATIVE); COLOR, URINE YELLOW (YELLOW); GLUCOSE, URINE (UA) AUTO NEGATIVE (NEGATIVE); KETONE, URINE AUTO NEGATIVE (NEGATIVE); LEUKOCYTE ESTERASE, URINE AUTO NEGATIVE (NEGATIVE); NITRITE, URINE AUTO NEGATIVE (NEGATIVE); PROTEIN, URINE AUTO NEGATIVE (NEGATIVE); RBC, URINE AUTO 2 /HPF (0-3); SPECIFIC GRAVITY URINE AUTO 1.005 (1.002-1.035); UROBILINOGEN, URINE AUTO 0.2 mg/dL (0.0-2.0); WBC, URINE AUTO 1 /HPF (0-3)
[2017-10-10 03:06] LABS: SQUAMOUS EPITHELIAL CELL UR AU 1 /HPF (0-6)
[2017-10-10 03:12] LABS: ALKALINE PHOSPHATASE 93 U/L (45-117); ALT/SGPT 41 U/L (12-78); ANION GAP 2 MEQ/L (8-16); AST/SGOT 27 U/L (7-37); BILIRUBIN,TOTAL 0.5 MG/DL (0.2-1.0); BLOOD UREA NITROGEN 7 MG/DL (7-18); CARBON DIOXIDE LEVEL 32 MEQ/L (21-32); CHLORIDE LEVEL 110 MEQ/L (98-107); CREATININE FOR GFR 1.18 MG/DL (0.55-1.30); GLOMERULAR FILTRATION RATE 49.7 (>45); GLUCOSE, FASTING 102 MG/DL (70-100); SODIUM LEVEL 144 MEQ/L (136-145); TOTAL PROTEIN 7.1 GM/DL (6.4-8.2)
[2017-10-10 03:13] LABS: ALBUMIN 3.6 GM/DL (3.2-5.2); ALBUMIN/GLOBULIN RATIO 1.03 (1.00-1.93); LIPASE 124 U/L (73-393)
[2017-10-10] MEDS ORDERED: ACETAMINOPHEN TAB 650MG DOSE (2X325MG) PO (05:45)
[2017-10-10] MEDS ORDERED: LIDOCAINE 5% OINT 30 GM EXT (07:00)
[2017-10-10] MEDS ORDERED: ONDANSETRON 4 MG ORAL DISINTEGRATING TAB (Q0162 PER 1MG) PO (07:00)
[2017-10-10] MEDS ORDERED: FAMOTIDINE 20 MG TAB PO (07:00)
[2017-10-10] MEDS: IPRATROPIUM 0.5MG/ALBUTEROL 2.5MG INH SOL UD 3ML (DUONEB)(J7620) INH ×2 (07:06→11:27)
[2017-10-10] MEDS ORDERED: CYCLOBENZAPRINE 5MG TABLET PO (08:00)
[2017-10-10 08:49] LABS: HEMATOCRIT 44.2 % (36.0-47.0)
[2017-10-10] MEDS: LEVOTHYROXINE 125MCG TABLET (0.125MG) PO (09:20)
[2017-10-10] MEDS: PANTOPRAZOLE 40MG TAB (PROTONIX) PO (09:21)
[2017-10-10] MEDS: VITAMIN D 1,000 INTERNATIONAL UNITS TABLET PO (09:21)
[2017-10-10] MEDS: clonazePAM 1 MG TAB PO (09:21)
[2017-10-10] MEDS: NORCO, ANEXSIA 5/325MG TABLET (HYDROcodone/ACETAMINOPHEN) PO (09:22)
[2017-10-10] MEDS ORDERED: TAMSULOSIN 0.4 MG CAP PO (12:00)
[2017-10-10] MEDS ORDERED: MIRTAZAPINE 15 MG TAB PO (16:00)
[2017-10-10] MEDS ORDERED: QUEtiapine FUMARATE 200 MG TAB PO (16:00)
[2017-10-10] MEDS ORDERED: CYCLOBENZAPRINE 10 MG TAB PO ×2 (16:00→21:00)
== END 2017-10-10 12:18 | disposition left against medical advice (07) | DRG 253 ==
LOC: M ED 01:14 → M ED INP 05:35 → M MSPAV 07:59
DX: K62.5 Hemorrhage of anus and rectum (principal); J44.9 Chronic obstructive pulmonary disease, unspecified; N18.3 Chronic kidney disease, stage 3 (moderate); K21.9 Gastro-esophageal reflux disease without esophagitis; E03.9 Hypothyroidism, unspecified; M54.5 Low back pain; G47.33 Obstructive sleep apnea (adult) (pediatric); Z99.89 Dependence on other enabling machines and devices; Z90.49 Acquired absence of other specified parts of digestive tract; Z90.711 Acquired absence of uterus with remaining cervical stump; Z88.1 Allergy status to other antibiotic agents; Z88.6 Allergy status to analgesic agent; Z88.8 Allergy status to other drugs, medicaments and biological substances; Z88.5 Allergy status to narcotic agent; Z79.899 Other long term (current) drug therapy; Z87.891 Personal history of nicotine dependence

== ENCOUNTER → 2017-10-20 | Outpatient (REF) | payer OTHER ==
[2017-10-20 12:36] LABS: HEMATOCRIT 46.1 % (36.0-47.0); HEMOGLOBIN 14.7 g/dl (12.0-15.5); MEAN CORPUSCULAR HEMOGLOBIN 29.9 pg (27.0-33.0); MEAN CORPUSCULAR HGB CONC 31.9 g/dl (32.0-36.5); MEAN CORPUSCULAR VOLUME 93.7 fl (80.0-96.0); PLATELET COUNT, AUTOMATED 201 10^3/uL (150-450); RED BLOOD COUNT 4.92 10^6/uL (4.00-5.40); RED CELL DISTRIBUTION WIDTH 12.7 % (11.5-14.5); WHITE BLOOD COUNT 6.9 10^3/uL (4.0-10.0)
[2017-10-20 13:04] LABS: TOTAL 25(OH) VITAMIN D 30.7 NG/ML (30.0-100.0)
== END ==
LOC: M SFHCPLAZ 10:13
DX: K62.5 Hemorrhage of anus and rectum (principal); E55.9 Vitamin D deficiency, unspecified; E03.9 Hypothyroidism, unspecified
CPT/HCPCS: 84443

== ENCOUNTER 2017-10-31 15:55 | Emergency (ER) | payer OTHER ==
[2017-10-31 18:39] LABS: BASO # 0.1 10^3/uL (0.0-0.2); BASO % 1.3 % (0.0-1.0); EOS # 0.4 10^3/uL (0.0-0.50); EOS % 4.7 % (0.0-3.0); HEMATOCRIT 47.2 % (36.0-47.0); HEMOGLOBIN 15.3 g/dl (12.0-15.5); IMMATURE GRANULOCYTE % 0.2 % (0-3.0); LYMPH % 32.4 % (24.0-44.0); MEAN CORPUSCULAR HEMOGLOBIN 30.1 pg (27.0-33.0); MEAN CORPUSCULAR HGB CONC 32.4 g/dl (32.0-36.5); MEAN CORPUSCULAR VOLUME 92.7 fl (80.0-96.0); MONO # 0.9 10^3/uL (0.0-0.8); MONO % 9.6 % (0.0-5.0); NEUTROPHILS # 4.7 10^3/uL (1.8-7.7); NEUTROPHILS % 51.8 % (36.0-66.0); PLATELET COUNT, AUTOMATED 199 10^3/uL (150-450); RED BLOOD COUNT 5.09 10^6/uL (4.00-5.40); RED CELL DISTRIBUTION WIDTH 12.7 % (11.5-14.5); WHITE BLOOD COUNT 9.1 10^3/uL (4.0-10.0)
[2017-10-31 19:15] LABS: ALBUMIN 3.6 GM/DL (3.2-5.2); ALBUMIN/GLOBULIN RATIO 1.03 (1.00-1.93); ALKALINE PHOSPHATASE 96 U/L (45-117); ALT/SGPT 35 U/L (12-78); ANION GAP 11 MEQ/L (8-16); AST/SGOT 22 U/L (7-37); BILIRUBIN,DIRECT < 0.1 MG/DL (0.0-0.2); BILIRUBIN,TOTAL 0.2 MG/DL (0.2-1.0); BLOOD UREA NITROGEN 7 MG/DL (7-18); CALCIUM LEVEL 7.8 MG/DL (8.8-10.2); CARBON DIOXIDE LEVEL 25 MEQ/L (21-32); CHLORIDE LEVEL 106 MEQ/L (98-107); CREATININE FOR GFR 1.15 MG/DL (0.55-1.30); GLOMERULAR FILTRATION RATE 51.2 (>45); GLUCOSE, FASTING 78 MG/DL (70-100); LIPASE 187 U/L (73-393); POTASSIUM SERUM 4.2 MEQ/L (3.5-5.1); SODIUM LEVEL 142 MEQ/L (136-145); TOTAL PROTEIN 7.1 GM/DL (6.4-8.2)
[2017-10-31] MEDS: GASTROGRAFIN SOLUTION 30ML PO ×2 (19:30→20:15)
[2017-10-31 19:43] LABS: INR 0.89; PROTHROMBIN TIME 12.1 SECONDS (12.4-14.5)
[2017-10-31] MEDS ORDERED: ISOVUE-370 76% 100ML VIAL (Q9967) As Ordered (19:57)
[2017-10-31 20:49] LABS: KETONE, URINE AUTO RFX NEGATIVE (NEGATIVE); LEUKOCYTE ESTERASE UR AUTO RFX NEGATIVE (NEGATIVE); NITRITE, URINE AUTO RFX NEGATIVE (NEGATIVE); RBC, URINE AUTO RFX 0 /HPF (0-3); SPECIFIC GRAVITY UR AUTO RFX 1.002 (1.002-1.035); SQUAM EPITHELIAL CELL UR AURFX 0 /HPF (0-6); WBC, URINE AUTO RFX 0 /HPF (0-3)
== END 2017-10-31 23:07 | disposition home or self-care (01) ==
LOC: M ED 15:55
DX: K62.5 Hemorrhage of anus and rectum (principal); J98.11 Atelectasis; N18.9 Chronic kidney disease, unspecified; J44.9 Chronic obstructive pulmonary disease, unspecified; E07.9 Disorder of thyroid, unspecified; G47.33 Obstructive sleep apnea (adult) (pediatric); K21.9 Gastro-esophageal reflux disease without esophagitis; F17.200 Nicotine dependence, unspecified, uncomplicated; Z79.890 Hormone replacement therapy; Z79.899 Other long term (current) drug therapy; Z98.890 Other specified postprocedural states; Z88.8 Allergy status to other drugs, medicaments and biological substances; Z88.5 Allergy status to narcotic agent
CPT/HCPCS: Q9963

== ENCOUNTER → 2017-11-03 | Outpatient (REF) | payer OTHER ==
[2017-11-03 13:37] LABS: CPK CREATINE PHOSPHOKINASE 98 U/L (26-192)
[2017-11-06 14:39] LABS: ACETYLCHOLINE RCPTOR BLOCK AB 20 % (0-25)
[2017-11-06 14:39] LABS: ANTINUCLEAR ANTIBODIES DIRECT Negative (Negative)
== END ==
LOC: M SFHCPLAZ 10:09
DX: R53.1 Weakness (principal)

== ENCOUNTER → 2017-11-17 | Outpatient (CLI) | payer OTHER | LOC: M PAIN 08:30 | DX: M54.42 Lumbago with sciatica, left side (principal); G89.29 Other chronic pain; K21.9 Gastro-esophageal reflux disease without esophagitis; J44.9 Chronic obstructive pulmonary disease, unspecified; F25.9 Schizoaffective disorder, unspecified; K44.9 Diaphragmatic hernia without obstruction or gangrene; N18.3 Chronic kidney disease, stage 3 (moderate); E03.9 Hypothyroidism, unspecified; E78.5 Hyperlipidemia, unspecified; E55.9 Vitamin D deficiency, unspecified; F17.210 Nicotine dependence, cigarettes, uncomplicated; Z79.51 Long term (current) use of inhaled steroids; Z79.899 Other long term (current) drug therapy; Z88.1 Allergy status to other antibiotic agents; Z88.5 Allergy status to narcotic agent; Z88.6 Allergy status to analgesic agent; Z88.8 Allergy status to other drugs, medicaments and biological substances | CPT/HCPCS: G0463 ==

== ENCOUNTER → 2017-11-19 | Outpatient (REF) | payer OTHER | LOC: M LAB REF 11:06 | DX: R05 Cough (principal) | CPT/HCPCS: 87186 ==

== ENCOUNTER 2017-11-28 19:13 | Emergency (ER) | payer OTHER ==
[2017-11-28] MEDS: NS 1,000 ML IV (21:19)
[2017-11-28 21:38] LABS: BASO # 0.1 10^3/uL (0.0-0.2); BASO % 1.2 % (0.0-1.0); EOS # 0.3 10^3/uL (0.0-0.50); EOS % 3.6 % (0.0-3.0); HEMATOCRIT 44.2 % (36.0-47.0); HEMOGLOBIN 14.5 g/dl (12.0-15.5); IMMATURE GRANULOCYTE % 0.4 % (0-3.0); LYMPH # 2.3 10^3/uL (1.5-4.5); LYMPH % 27.6 % (24.0-44.0); MEAN CORPUSCULAR HEMOGLOBIN 30.2 pg (27.0-33.0); MEAN CORPUSCULAR HGB CONC 32.8 g/dl (32.0-36.5); MEAN CORPUSCULAR VOLUME 92.1 fl (80.0-96.0); MONO # 0.9 10^3/uL (0.0-0.8); MONO % 10.3 % (0.0-5.0); NEUTROPHILS # 4.7 10^3/uL (1.8-7.7); NEUTROPHILS % 56.9 % (36.0-66.0); PLATELET COUNT, AUTOMATED 202 10^3/uL (150-450); RED CELL DISTRIBUTION WIDTH 12.3 % (11.5-14.5); WHITE BLOOD COUNT 8.3 10^3/uL (4.0-10.0)
[2017-11-28 21:46] LABS: ANION GAP 6 MEQ/L (8-16); BLOOD UREA NITROGEN 11 MG/DL (7-18); CALCIUM LEVEL 8.1 MG/DL (8.8-10.2); CARBON DIOXIDE LEVEL 29 MEQ/L (21-32); CHLORIDE LEVEL 105 MEQ/L (98-107); CREATININE FOR GFR 1.26 MG/DL (0.55-1.30); GLOMERULAR FILTRATION RATE 46.1 (>45); GLUCOSE, FASTING 109 MG/DL (70-100); POTASSIUM SERUM 3.5 MEQ/L (3.5-5.1); SODIUM LEVEL 140 MEQ/L (136-145)
[2017-11-28 22:05] LABS: APPEARANCE, URINE HAZY (CLEAR); BACTERIA, URINE AUTO NEGATIVE (NEGATIVE); BILIRUBIN, URINE AUTO NEGATIVE (NEGATIVE); BLOOD, URINE BLOOD 1+ (NEGATIVE); COLOR, URINE YELLOW (YELLOW); GLUCOSE, URINE (UA) AUTO NEGATIVE (NEGATIVE); INR 0.93; KETONE, URINE AUTO NEGATIVE (NEGATIVE); LEUKOCYTE ESTERASE, URINE AUTO TRACE (NEGATIVE); NITRITE, URINE AUTO NEGATIVE (NEGATIVE); PROTEIN, URINE AUTO NEGATIVE (NEGATIVE); PROTHROMBIN TIME 12.6 SECONDS (12.1-14.4); RBC, URINE AUTO 3 /HPF (0-3); SPECIFIC GRAVITY URINE AUTO 1.002 (1.002-1.035); SQUAMOUS EPITHELIAL CELL UR AU 1 /HPF (0-6); UROBILINOGEN, URINE AUTO 0.2 mg/dL (0.0-2.0); WBC, URINE AUTO 3 /HPF (0-3)
[2017-11-28 22:06] LABS: PARTIAL THROMBOPLASTIN TIME 28.1 SECONDS (25.4-37.6)
== END 2017-11-28 23:25 | disposition home or self-care (01) ==
LOC: M ED 19:13
DX: N93.9 Abnormal uterine and vaginal bleeding, unspecified (principal); I10 Essential (primary) hypertension; G47.30 Sleep apnea, unspecified; J44.9 Chronic obstructive pulmonary disease, unspecified; J43.9 Emphysema, unspecified; K21.9 Gastro-esophageal reflux disease without esophagitis; Z87.19 Personal history of other diseases of the digestive system; N18.3 Chronic kidney disease, stage 3 (moderate); Z87.440 Personal history of urinary (tract) infections; M54.9 Dorsalgia, unspecified; M51.9 Unspecified thoracic, thoracolumbar and lumbosacral intervertebral disc disorder; M54.30 Sciatica, unspecified side; E11.9 Type 2 diabetes mellitus without complications; E03.9 Hypothyroidism, unspecified; F41.9 Anxiety disorder, unspecified; F25.9 Schizoaffective disorder, unspecified; Z72.0 Tobacco use; Z79.899 Other long term (current) drug therapy; Z88.8 Allergy status to other drugs, medicaments and biological substances; Z88.6 Allergy status to analgesic agent; Z88.1 Allergy status to other antibiotic agents; Z88.5 Allergy status to narcotic agent
CPT/HCPCS: 76856

== ENCOUNTER → 2017-12-05 | Outpatient (CLI) | payer OTHER ==
[~2017-12-05] MED LIST changes: +E-Z-GAS II EFFERVESCENT PACKET (SODIUM BICARB./CITRIC ACID/SIMETHICONE) As Ordered; +E-Z-HD 98% w/w 340GM SUSP BTL As Ordered; +E-Z-PAQUE 96% w/w SUSP 176GM BTL As Ordered; -ISOVUE-370 76% 100ML VIAL (Q9967) As Ordered
== END ==
LOC: M RAD 07:10
DX: K57.10 Diverticulosis of small intestine without perforation or abscess without bleeding (principal); K22.4 Dyskinesia of esophagus; R12 Heartburn; R13.19 Other dysphagia
CPT/HCPCS: 74241

== ENCOUNTER → 2017-12-09 | Outpatient (CLI) | payer OTHER | LOC: M RAD 14:42 | DX: R07.9 Chest pain, unspecified (principal) | CPT/HCPCS: 71046 ==

== ENCOUNTER 2017-12-15 10:47 | Day surgery (SDC) | payer OTHER ==
[2017-12-15] MEDS: LR 1,000 ML IV (12:48)
[2017-12-15] MEDS ORDERED: PROPOFOL 200 MG/20 ML VIAL As Ordered ×2 (14:41→14:44)
[2017-12-15] MEDS ORDERED: fentaNYL 100 MCG/2 ML INJECTION (J3010) As Ordered ×3 (14:41→15:29)
[2017-12-15] MEDS ORDERED: ONDANSETRON 4MG/2ML VIAL (J2405) As Ordered ×2 (14:41→15:28)
[2017-12-15] MEDS ORDERED: MIDAZOLAM INJ 2 MG/2 ML VIAL (J2250) As Ordered (14:41)
[2017-12-15] MEDS ORDERED: dexameTHASONE 4 MG/ML 1ML VIAL (J1100) As Ordered (14:41)
[2017-12-15] MEDS ORDERED: LIDOCAINE 2% INJ 100 MG/5 ML SDV (FOR ANES.) As Ordered (14:41)
[2017-12-15] MEDS: LIDOCAINE W/EPINEPHRINE 1% 20ML VIAL As Ordered (15:00)
[2017-12-15] MEDS ORDERED: PERCOCET 5MG/325MG TAB As Ordered (15:29)
[2017-12-15] MEDS ORDERED: LR 1,000 ML IV (15:30)
[2017-12-15] MEDS ORDERED: HYDROMORPHONE HCL 0.5 MG/ 0.5 ML SYRINGE (J1170 PER 1) IV (15:30)
[2017-12-15] MEDS: PERCOCET 5MG/325MG TAB PO ×2 (15:35→16:02)
[2017-12-15] MEDS: ONDANSETRON 4MG/2ML VIAL (J2405) IV (15:36)
[2017-12-15] MEDS: fentaNYL 100 MCG/2 ML INJECTION (J3010) IV ×4 (15:36→15:54)
[2017-12-15] MEDS ORDERED: PERCOCET 5MG/325MG TAB PO (15:45)
== END 2017-12-15 17:12 | disposition home or self-care (01) ==
LOC: M SDC 10:47
DX: R19.02 Left upper quadrant abdominal swelling, mass and lump (principal); L98.8 Other specified disorders of the skin and subcutaneous tissue; J44.9 Chronic obstructive pulmonary disease, unspecified; K44.9 Diaphragmatic hernia without obstruction or gangrene; N18.3 Chronic kidney disease, stage 3 (moderate); K21.9 Gastro-esophageal reflux disease without esophagitis; E03.9 Hypothyroidism, unspecified; F41.9 Anxiety disorder, unspecified; K58.8 Other irritable bowel syndrome; Z88.8 Allergy status to other drugs, medicaments and biological substances; Z79.899 Other long term (current) drug therapy; E78.4 Other hyperlipidemia; E55.9 Vitamin D deficiency, unspecified; F25.9 Schizoaffective disorder, unspecified; N95.2 Postmenopausal atrophic vaginitis; R33.9 Retention of urine, unspecified; G47.33 Obstructive sleep apnea (adult) (pediatric)
CPT/HCPCS: 22903

== ENCOUNTER → 2017-12-19 | Outpatient (REF) | payer OTHER ==
[2017-12-19 13:21] LABS: BACTERIA, URINE AUTO 1+ (NEGATIVE); RBC, URINE AUTO 0 /HPF (0-3); SQUAMOUS EPITHELIAL CELL UR AU 1 /HPF (0-6); WBC, URINE AUTO 2 /HPF (0-3)
== END ==
LOC: M SMT 12:52
DX: R33.9 Retention of urine, unspecified (principal)

== ENCOUNTER → 2017-12-25 | Outpatient (CLI) | payer OTHER, MEDICAID | LOC: M PAIN 08:45 | DX: M79.1 Myalgia (principal); M54.42 Lumbago with sciatica, left side; K21.9 Gastro-esophageal reflux disease without esophagitis; J44.9 Chronic obstructive pulmonary disease, unspecified; F25.9 Schizoaffective disorder, unspecified; N18.4 Chronic kidney disease, stage 4 (severe); E03.9 Hypothyroidism, unspecified; K58.0 Irritable bowel syndrome with diarrhea; E78.5 Hyperlipidemia, unspecified; N39.41 Urge incontinence; K76.0 Fatty (change of) liver, not elsewhere classified; E55.9 Vitamin D deficiency, unspecified; F17.210 Nicotine dependence, cigarettes, uncomplicated; Z98.42 Cataract extraction status, left eye; Z90.49 Acquired absence of other specified parts of digestive tract; Z79.899 Other long term (current) drug therapy; Z88.1 Allergy status to other antibiotic agents; Z88.8 Allergy status to other drugs, medicaments and biological substances; Z88.6 Allergy status to analgesic agent | CPT/HCPCS: G0463 ==

== ENCOUNTER → 2018-01-16 | Outpatient (CLI) | payer OTHER ==
[~2018-01-16] MED LIST changes: +BUPIVACAINE HCL 0.25% 10 ML VIAL As Ordered; +BUPIVACAINE HCL 0.25% 30 ML VIAL As Ordered; -E-Z-GAS II EFFERVESCENT PACKET (SODIUM BICARB./CITRIC ACID/SIMETHICONE) As Ordered; -E-Z-HD 98% w/w 340GM SUSP BTL As Ordered; -E-Z-PAQUE 96% w/w SUSP 176GM BTL As Ordered; +TRIAMCINOLONE ACETONIDE SUSP 40 MG/ML VIAL (J3301) As Ordered
== END ==
LOC: M PAIN 12:45
DX: M79.1 Myalgia (principal); M54.5 Low back pain; K21.9 Gastro-esophageal reflux disease without esophagitis; N18.3 Chronic kidney disease, stage 3 (moderate); J44.9 Chronic obstructive pulmonary disease, unspecified; F25.9 Schizoaffective disorder, unspecified; E78.5 Hyperlipidemia, unspecified; E03.9 Hypothyroidism, unspecified; F17.200 Nicotine dependence, unspecified, uncomplicated; Z79.899 Other long term (current) drug therapy; Z88.1 Allergy status to other antibiotic agents; Z88.6 Allergy status to analgesic agent; Z88.5 Allergy status to narcotic agent; Z88.8 Allergy status to other drugs, medicaments and biological substances
CPT/HCPCS: J3301

== ENCOUNTER 2018-01-19 07:05 | Outpatient (RCR) | payer OTHER | END 2018-02-08 | LOC: M PT 07:05 | DX: Z51.89 Encounter for other specified aftercare (principal); M79.1 Myalgia; M54.42 Lumbago with sciatica, left side | CPT/HCPCS: 97010 ==

== ENCOUNTER 2018-01-27 12:28 | Emergency (ER) | payer OTHER ==
[2018-01-27] MEDS: HYDROmorphone 2 MG TAB PO (15:47)
== END 2018-01-27 15:49 | disposition home or self-care (01) ==
LOC: M ED 12:28
DX: S13.4XXA Sprain of ligaments of cervical spine, initial encounter (principal); V43.62XA Car passenger injured in collision with other type car in traffic accident, initial encounter
CPT/HCPCS: 70450

== ENCOUNTER → 2018-01-27 | Outpatient (CLI) | payer OTHER | LOC: M PAIN 08:30 | DX: M79.1 Myalgia (principal); M54.5 Low back pain; M62.81 Muscle weakness (generalized); K21.9 Gastro-esophageal reflux disease without esophagitis; J44.9 Chronic obstructive pulmonary disease, unspecified; F25.9 Schizoaffective disorder, unspecified; N18.3 Chronic kidney disease, stage 3 (moderate); E03.9 Hypothyroidism, unspecified; E78.5 Hyperlipidemia, unspecified; E55.9 Vitamin D deficiency, unspecified; F17.210 Nicotine dependence, cigarettes, uncomplicated; Z79.51 Long term (current) use of inhaled steroids; Z79.899 Other long term (current) drug therapy; Z88.1 Allergy status to other antibiotic agents; Z88.5 Allergy status to narcotic agent; Z88.6 Allergy status to analgesic agent; Z88.8 Allergy status to other drugs, medicaments and biological substances | CPT/HCPCS: G0463 ==

== ENCOUNTER 2018-02-01 11:22 | Emergency (ER) | payer OTHER ==
[2018-02-01 13:24] LABS: BASO # 0.1 10^3/uL (0.0-0.2); BASO % 1.4 % (0.0-1.0); EOS # 0.2 10^3/uL (0.0-0.50); HEMATOCRIT 45.2 % (36.0-47.0); HEMOGLOBIN 14.5 g/dl (12.0-15.5); IMMATURE GRANULOCYTE % 0.4 % (0-3.0); LYMPH # 2.1 10^3/uL (1.5-4.5); LYMPH % 29.7 % (24.0-44.0); MEAN CORPUSCULAR HEMOGLOBIN 29.9 pg (27.0-33.0); MEAN CORPUSCULAR HGB CONC 32.1 g/dl (32.0-36.5); MEAN CORPUSCULAR VOLUME 93.2 fl (80.0-96.0); MONO # 0.6 10^3/uL (0.0-0.8); MONO % 9.1 % (0.0-5.0); NEUTROPHILS # 3.9 10^3/uL (1.8-7.7); NEUTROPHILS % 56.4 % (36.0-66.0); PLATELET COUNT, AUTOMATED 218 10^3/uL (150-450); RED BLOOD COUNT 4.85 10^6/uL (4.00-5.40); RED CELL DISTRIBUTION WIDTH 13.1 % (11.5-14.5)
[2018-02-01 13:39] LABS: INR 0.86; PROTHROMBIN TIME 11.8 SECONDS (12.1-14.4)
[2018-02-01] MEDS: MECLIZINE 25 MG TABLET PO (14:53)
[2018-02-01] MEDS: NS 1,000 ML IV (14:55)
[2018-02-01 15:19] LABS: ANION GAP 7 MEQ/L (8-16); BLOOD UREA NITROGEN 18 MG/DL (7-18); CALCIUM LEVEL 8.6 MG/DL (8.8-10.2); CARBON DIOXIDE LEVEL 26 MEQ/L (21-32); CHLORIDE LEVEL 109 MEQ/L (98-107); CPK CREATINE PHOSPHOKINASE 99 U/L (26-192); CREATININE FOR GFR 1.14 MG/DL (0.55-1.30); FREE T4 0.97 NG/DL (0.76-1.46); GLOMERULAR FILTRATION RATE 51.8 (>45); GLUCOSE, FASTING 73 MG/DL (70-100); MAGNESIUM LEVEL 2.2 MG/DL (1.8-2.4); MB/CK RELATIVE INDEX 1.31 (< OR =4); POTASSIUM SERUM 4.7 MEQ/L (3.5-5.1); SODIUM LEVEL 142 MEQ/L (136-145); TROPONIN I < 0.02 NG/ML (< 0.10)
== END 2018-02-01 16:10 | disposition home or self-care (01) ==
LOC: M ED 11:22
DX: R42 Dizziness and giddiness (principal); J44.9 Chronic obstructive pulmonary disease, unspecified; K21.9 Gastro-esophageal reflux disease without esophagitis; F25.9 Schizoaffective disorder, unspecified; E78.9 Disorder of lipoprotein metabolism, unspecified; E55.9 Vitamin D deficiency, unspecified; N18.9 Chronic kidney disease, unspecified; M54.9 Dorsalgia, unspecified; K58.9 Irritable bowel syndrome, unspecified; K76.0 Fatty (change of) liver, not elsewhere classified; F17.200 Nicotine dependence, unspecified, uncomplicated; Z88.8 Allergy status to other drugs, medicaments and biological substances; Z88.1 Allergy status to other antibiotic agents; Z88.5 Allergy status to narcotic agent; Z79.899 Other long term (current) drug therapy; Z79.51 Long term (current) use of inhaled steroids
CPT/HCPCS: 72141

== ENCOUNTER → 2018-02-02 | Outpatient (CLI) | payer OTHER | LOC: M PAIN 09:15 | DX: M79.1 Myalgia (principal); K21.9 Gastro-esophageal reflux disease without esophagitis; J44.9 Chronic obstructive pulmonary disease, unspecified; F25.9 Schizoaffective disorder, unspecified; M54.41 Lumbago with sciatica, right side; M54.42 Lumbago with sciatica, left side; N18.3 Chronic kidney disease, stage 3 (moderate); E03.9 Hypothyroidism, unspecified; K58.0 Irritable bowel syndrome with diarrhea; E78.5 Hyperlipidemia, unspecified; K76.0 Fatty (change of) liver, not elsewhere classified; E55.9 Vitamin D deficiency, unspecified; F17.210 Nicotine dependence, cigarettes, uncomplicated; Z79.891 Long term (current) use of opiate analgesic; Z79.899 Other long term (current) drug therapy; Z88.8 Allergy status to other drugs, medicaments and biological substances; Z88.6 Allergy status to analgesic agent; Z88.1 Allergy status to other antibiotic agents | CPT/HCPCS: G0463 ==

== ENCOUNTER → 2018-02-11 | Outpatient (CLI) | payer OTHER | LOC: M RAD 13:24 | DX: M25.512 Pain in left shoulder (principal) | CPT/HCPCS: 73030 ==

== ENCOUNTER 2018-02-16 07:29 | Day surgery (SDC) | payer OTHER ==
[2018-02-16] MEDS: MOXIFLOXACIN IN BSS 0.25MG/0.25ML INTRACAMERAL INJ (OR EYE ONLY)(J2280) As Ordered (06:46)
[~2018-02-16 07:29] MED LIST changes: -BUPIVACAINE HCL 0.25% 10 ML VIAL As Ordered; -BUPIVACAINE HCL 0.25% 30 ML VIAL As Ordered; +LIDOCAINE 3.5 % 1ML OPHTH TOPICAL GEL OU; +PHENYLEPHRINE HCL 10 % OPHTH. SOL 5ML OD; +POVIDONE-IODINE 5% OPHTH PREP SOL 30ML As Ordered; -TRIAMCINOLONE ACETONIDE SUSP 40 MG/ML VIAL (J3301) As Ordered
[2018-02-16] MEDS ORDERED: TROPICAMIDE 1% OPHTH SOLN 2ML As Ordered (07:51)
[2018-02-16] MEDS ORDERED: PHENYLEPHRINE 2.5% OPHTH SOL 2ML As Ordered (07:51)
[2018-02-16] MEDS ORDERED: OFLOXACIN 0.3 % (OCUFLOX) OPTH SOL 5ML As Ordered (07:51)
[2018-02-16] MEDS ORDERED: CYCLOPENTOLATE 2% OPHTH SOLN 2ML BTL As Ordered (07:51)
[2018-02-16] MEDS: CYCLOPENTOLATE 2% OPHTH SOLN 2ML BTL OD (08:14)
[2018-02-16] MEDS: TROPICAMIDE 1% OPHTH SOLN 2ML OD (08:14)
[2018-02-16] MEDS: PHENYLEPHRINE 2.5% OPHTH SOL 2ML OD (08:14)
[2018-02-16] MEDS: OFLOXACIN 0.3 % (OCUFLOX) OPTH SOL 5ML OD (08:15)
[2018-02-16] MEDS ORDERED: fentaNYL 100 MCG/2 ML INJECTION (J3010) As Ordered (08:25)
[2018-02-16] MEDS ORDERED: MIDAZOLAM INJ 2 MG/2 ML VIAL (J2250) As Ordered (08:25)
[2018-02-16] MEDS ORDERED: LIDOCAINE 2% W/EPIN INJ 20ML **PRES FREE As Ordered (09:16)
[2018-02-16] MEDS ORDERED: MOXIFLOXACIN IN BSS 0.25MG/0.25ML INTRACAMERAL INJ (OR EYE ONLY)(J2280) As Ordered (09:17)
[2018-02-16] MEDS: POVIDONE-IODINE 5% OPHTH PREP SOL 30ML As Ordered (09:33)
[2018-02-16] MEDS: BSS with VANC/TOB/EPI for EYE CASES IR (09:34)
[2018-02-16] MEDS: LIDOCAINE 1% SDV 5 ML VIAL As Ordered (09:34)
[2018-02-16] MEDS: HEALON DUET (HEALON 10MG/ML 0.55ML & HEALON ENDOCOAT 30MG/ML 0.85ML) As Ordered (09:34)
[2018-02-16] MEDS: TRIAMCINOLONE PRES FR 40 MG/ML 1ML(TRIESENCE)(OR EYE ONLY)(J3300 PER 1MG) As Ordered (09:34)
== END 2018-02-16 10:15 | disposition home or self-care (01) ==
LOC: M SDC 07:29
DX: H25.9 Unspecified age-related cataract (principal); I10 Essential (primary) hypertension; E03.9 Hypothyroidism, unspecified; K44.9 Diaphragmatic hernia without obstruction or gangrene; K58.8 Other irritable bowel syndrome; G47.30 Sleep apnea, unspecified; Z79.899 Other long term (current) drug therapy; Z87.891 Personal history of nicotine dependence
CPT/HCPCS: 66984

== ENCOUNTER → 2018-02-25 | Outpatient (REF) | payer OTHER ==
[2018-02-25 10:38] LABS: APPEARANCE, URINE CLEAR (CLEAR); BACTERIA, URINE AUTO NEGATIVE (NEGATIVE); BILIRUBIN, URINE AUTO NEGATIVE (NEGATIVE); BLOOD, URINE BLOOD NEGATIVE (NEGATIVE); COLOR, URINE YELLOW (YELLOW); GLUCOSE, URINE (UA) AUTO NEGATIVE (NEGATIVE); KETONE, URINE AUTO NEGATIVE (NEGATIVE); LEUKOCYTE ESTERASE, URINE AUTO NEGATIVE (NEGATIVE); NITRITE, URINE AUTO NEGATIVE (NEGATIVE); PROTEIN, URINE AUTO NEGATIVE (NEGATIVE); RBC, URINE AUTO 1 /HPF (0-3); SPECIFIC GRAVITY URINE AUTO 1.006 (1.002-1.035); SQUAMOUS EPITHELIAL CELL UR AU 0 /HPF (0-6); UROBILINOGEN, URINE AUTO 0.2 mg/dL (0.0-2.0); WBC, URINE AUTO 1 /HPF (0-3)
== END ==
LOC: M SFHCPLAZ 08:28
DX: R30.0 Dysuria (principal)
CPT/HCPCS: 81001

== ENCOUNTER → 2018-02-26 | Outpatient (CLI) | payer OTHER | LOC: M PAIN 11:45 | DX: M79.18 Myalgia, other site (principal); M54.5 Low back pain; K21.9 Gastro-esophageal reflux disease without esophagitis; J44.9 Chronic obstructive pulmonary disease, unspecified; F25.9 Schizoaffective disorder, unspecified; N18.3 Chronic kidney disease, stage 3 (moderate); E03.9 Hypothyroidism, unspecified; E78.5 Hyperlipidemia, unspecified; E55.9 Vitamin D deficiency, unspecified; F17.210 Nicotine dependence, cigarettes, uncomplicated; Z79.51 Long term (current) use of inhaled steroids; Z79.899 Other long term (current) drug therapy; Z88.1 Allergy status to other antibiotic agents; Z88.5 Allergy status to narcotic agent; Z88.6 Allergy status to analgesic agent; Z88.8 Allergy status to other drugs, medicaments and biological substances | CPT/HCPCS: G0463 ==

== ENCOUNTER 2018-03-16 10:20 | Outpatient (RCR) | payer OTHER | END 2018-04-10 | LOC: M PT 10:20 | DX: M54.2 Cervicalgia (principal) ==

== ENCOUNTER → 2018-03-19 | Outpatient (CLI) | payer OTHER | LOC: M RAD 10:14 | DX: M75.32 Calcific tendinitis of left shoulder (principal) | CPT/HCPCS: 73221 ==

== ENCOUNTER → 2018-03-20 | Outpatient (CLI) | payer OTHER | LOC: M PAIN 09:45 | DX: M54.2 Cervicalgia (principal); K21.9 Gastro-esophageal reflux disease without esophagitis; J44.9 Chronic obstructive pulmonary disease, unspecified; F25.9 Schizoaffective disorder, unspecified; N18.3 Chronic kidney disease, stage 3 (moderate); E03.9 Hypothyroidism, unspecified; E78.5 Hyperlipidemia, unspecified; F17.210 Nicotine dependence, cigarettes, uncomplicated; Z79.51 Long term (current) use of inhaled steroids; Z79.899 Other long term (current) drug therapy; Z88.1 Allergy status to other antibiotic agents; Z88.5 Allergy status to narcotic agent; Z88.6 Allergy status to analgesic agent; Z88.8 Allergy status to other drugs, medicaments and biological substances | CPT/HCPCS: G0463 ==

== ENCOUNTER → 2018-04-01 | Outpatient (REF) | payer OTHER ==
[2018-04-01 13:27] LABS: APPEARANCE, URINE CLEAR (CLEAR); BACTERIA, URINE AUTO 1+ (NEGATIVE); BILIRUBIN, URINE AUTO NEGATIVE (NEGATIVE); BLOOD, URINE BLOOD NEGATIVE (NEGATIVE); COLOR, URINE STRAW (YELLOW); GLUCOSE, URINE (UA) AUTO NEGATIVE (NEGATIVE); KETONE, URINE AUTO NEGATIVE (NEGATIVE); LEUKOCYTE ESTERASE, URINE AUTO NEGATIVE (NEGATIVE); NITRITE, URINE AUTO NEGATIVE (NEGATIVE); PROTEIN, URINE AUTO NEGATIVE (NEGATIVE); RBC, URINE AUTO 0 /HPF (0-3); SPECIFIC GRAVITY URINE AUTO 1.003 (1.002-1.035); SQUAMOUS EPITHELIAL CELL UR AU 1 /HPF (0-6); UROBILINOGEN, URINE AUTO 0.2 mg/dL (0.0-2.0); WBC, URINE AUTO 1 /HPF (0-3)
== END ==
LOC: M LAB REF 13:13
DX: N39.0 Urinary tract infection, site not specified (principal)
CPT/HCPCS: 81001

== ENCOUNTER → 2018-04-09 | Outpatient (CLI) | payer OTHER ==
[2018-04-09 12:25] LABS: HEMATOCRIT 45.2 % (36.0-47.0); HEMOGLOBIN 14.5 g/dl (12.0-15.5); MEAN CORPUSCULAR HEMOGLOBIN 30.1 pg (27.0-33.0); MEAN CORPUSCULAR HGB CONC 32.1 g/dl (32.0-36.5); PLATELET COUNT, AUTOMATED 205 10^3/uL (150-450); RED BLOOD COUNT 4.81 10^6/uL (4.00-5.40); RED CELL DISTRIBUTION WIDTH 14.6 % (11.5-14.5); WHITE BLOOD COUNT 9.8 10^3/uL (4.0-10.0)
[2018-04-09 12:52] LABS: ESTIMATED AVERAGE GLUCOSE 123 MG/DL (60-110); HEMOGLOBIN A1c 5.9 %
[2018-04-09 13:03] LABS: ALBUMIN 3.4 GM/DL (3.2-5.2); ALBUMIN/GLOBULIN RATIO 1.03 (1.00-1.93); ALKALINE PHOSPHATASE 80 U/L (45-117); ALT/SGPT 36 U/L (12-78); ANION GAP 6 MEQ/L (8-16); AST/SGOT 12 U/L (7-37); BILIRUBIN,TOTAL 0.4 MG/DL (0.2-1.0); BLOOD UREA NITROGEN 12 MG/DL (7-18); CARBON DIOXIDE LEVEL 30 MEQ/L (21-32); CHLORIDE LEVEL 104 MEQ/L (98-107); CHOLESTEROL LEVEL 184 MG/DL (<200); CHOLESTEROL RISK RATIO 3.285 (<5); CREATININE FOR GFR 1.19 MG/DL (0.55-1.30); GLOMERULAR FILTRATION RATE 49.3 (>45); GLUCOSE, FASTING 94 MG/DL (70-100); HDL CHOLESTEROL 56 MG/DL (>40); LDL CHOLESTEROL 85 MG/DL (<100); NON-HDL-C 128 MG/DL; SODIUM LEVEL 140 MEQ/L (136-145); TOTAL 25(OH) VITAMIN D 27.3 NG/ML (30.0-100.0); TOTAL PROTEIN 6.7 GM/DL (6.4-8.2); TRIGLYCERIDES LEVEL 215 MG/DL (<150)
== END ==
LOC: M LAB 11:23
DX: J44.9 Chronic obstructive pulmonary disease, unspecified (principal); R91.8 Other nonspecific abnormal finding of lung field; R94.31 Abnormal electrocardiogram [ECG] [EKG]
CPT/HCPCS: 71046

== ENCOUNTER 2018-04-24 08:18 | Outpatient (RCR) | payer OTHER ==
[~2018-04-24 08:18] MED LIST changes: +ALBU17IN INH; +ALBU83IN INH; +ARNU1INH INH; +BREO1INH INH; +CIPR-249 PO; +CIPR500T3 PO; +CLON0.5T8 PO; +CLON1TAB8 PO; +COMBAER6 INH; +CYCL10TA PO; +CYCL5TA PO; +DICL13PA TD; +DICL250C70 PO; +DILA2TAB6 PO; +DRIS50003 PO; +FLOM0.4C39 PO; +HYDR-3713 PO; +HYDR-3716 PO; +HYDR-3719 PO; +HYDR1SOL PO; +INVE3TAB2 PO; +IPRA0.00 IN; +IPRA0.00 INH; +KLON1TAB PO; +LEVO125T4 PO; +LIDO2JELLY TOP; +LIDO2SOL10 TOP; +LIDO4CRE2 EX; +LIDO5OIN28 EXT; -LIDOCAINE 3.5 % 1ML OPHTH TOPICAL GEL OU; +LOSA25TA33 PO; +MIRT30TA3 PO; +MULT1TAB10 PO; +MULT1TAB15 PO; +MULTLIQ7 PO; +NICO21DI31 TOP; +NICO21DI5 TOP; +NORC10TA21 PO; +NORCOTAB PO; +OXYC1TAB15 PO; +PANT40TA3 PO; +PERC5TAB12 PO; +PERCOCET PO; -PHENYLEPHRINE HCL 10 % OPHTH. SOL 5ML OD; -POVIDONE-IODINE 5% OPHTH PREP SOL 30ML As Ordered; +PRED10TA2 PO; +PRED20TA PO; +PRIL40CA PO; +RANI150T PO; +REME30TA PO; +SERO200T PO; +TOPA200T7 PO; +VITA100067 PO; +ZANA4TAB PO; +ZOFR4TAB14 PO
== END 2018-05-11 ==
LOC: M PT 08:18
PROVIDERS: ATTEND Family Medicine
DX: Z51.89 Encounter for other specified aftercare (principal); M54.2 Cervicalgia

== ENCOUNTER 2018-04-27 05:34 | Day surgery (SDC) | payer OTHER ==
[~2018-04-27] VITALS: Ht 160 cm; Wt 90.7 kg
[2018-04-27] MEDS ORDERED: NS 1,000 ML IV ONE (07:00)
[2018-04-27] MEDS ORDERED: PROPOFOL 200 MG/20 ML VIAL As Ordered ONE (07:12)
[2018-04-27] MEDS ORDERED: LIDOCAINE 2% INJ 100 MG/5 ML SDV (FOR ANES.) As Ordered ONE (07:12)
--- NOTE | 2018-04-27 07:50 | ROOR ---
Patient Name: Gabbi Guzman Procedure Date: 04/27/2018 7:32 AM Date of : 1955 Age: 62 Room: [facility] Gender: Female Note Status: Finalized Procedure: Colonoscopy to 20 Cms (POOR PREP-incomplete exam) Indications: Last colonoscopy: 2007, Rectal bleeding Providers: Simon Ye MD Referring MD: DERRICK JENKINS MD Requesting Provider: Medicines: Monitored Anesthesia Care Complications: No immediate complications. Procedure: Pre-Anesthesia Assessment: - The heart rate, respiratory rate, oxygen saturations, blood pressure, adequacy of pulmonary ventilation, and response to care were monitored throughout the procedure. The procedure was aborted. The colonoscope was not inserted. Medications were given. The colonoscopy was performed without difficulty. The patient tolerated the procedure well. The quality of the bowel preparation was inadequate. Findings: The perianal and digital rectal examinations were normal. Non-bleeding internal hemorrhoids were found during retroflexion. The hemorrhoids were small and Grade I (internal hemorrhoids that do not prolapse). A large amount of extensive amounts of stool was found in the recto-sigmoid colon, precluding visualization. The entire examined colon appeared normal. Impression: - Preparation of the colon was inadequate. - Non-bleeding internal hemorrhoids. - Stool in the recto-sigmoid colon. - The entire examined colon is normal. - No specimens collected. - The exam was suboptimal due to patient preparation. Recommendation: - Patient has a contact number available for emergencies. The signs and symptoms of potential delayed complications were discussed with the patient. Return to normal activities tomorrow. Written discharge instructions were provided to the patient. - Discharge patient to home. - Repeat colonoscopy because the bowel preparation was poor. - The findings and recommendations were discussed with the patient's family. Simon Ye MD Simon Ye MD 04/27/2018 7:50:15 AM This report has been signed electronically. Number of Addenda: 0 Note Initiated On: 04/27/2018 7:32 AM Estimated Blood Loss: Estimated blood loss: none.
[2018-04-27 08:11] VITALS: BP 147/90
== END 2018-04-27 08:20 | disposition home or self-care (01) ==
LOC: M OPP 05:34
PROVIDERS: ATTEND Internal Medicine Gastroenterology
DX: K62.5 Hemorrhage of anus and rectum (principal); K64.0 First degree hemorrhoids

== ENCOUNTER → 2018-05-01 | Outpatient (CLI) | payer OTHER ==
[~2018-05-01] MED LIST changes: +ANUS2.5C2 PR; +CEFU50TA PO; +CRAN400C PO; +ESTR62CR PV; +GAVICHW5 PO; +LIDO1CRE2 EX; +LOSA25TA14 PO; -LOSA25TA33 PO; -NICO21DI5 TOP; +NICO21DI6 TOP; +TIZA2CAP PO; +VENTAER INH; +VITA50005 PO
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
== END ==
LOC: M PAIN 10:00
PROVIDERS: ATTEND Nurse Practitioner Family
DX: M54.2 Cervicalgia (principal); N18.3 Chronic kidney disease, stage 3 (moderate); E03.9 Hypothyroidism, unspecified; I12.9 Hypertensive chronic kidney disease with stage 1 through stage 4 chronic kidney disease, or unspecified chronic kidney disease; E78.5 Hyperlipidemia, unspecified; K21.9 Gastro-esophageal reflux disease without esophagitis; J44.9 Chronic obstructive pulmonary disease, unspecified; F25.9 Schizoaffective disorder, unspecified; F17.210 Nicotine dependence, cigarettes, uncomplicated; E66.01 Morbid (severe) obesity due to excess calories; Z68.35 Body mass index [BMI] 35.0-35.9, adult; Z79.51 Long term (current) use of inhaled steroids; Z79.899 Other long term (current) drug therapy; Z88.1 Allergy status to other antibiotic agents; Z88.5 Allergy status to narcotic agent; Z88.6 Allergy status to analgesic agent; Z88.8 Allergy status to other drugs, medicaments and biological substances

== ENCOUNTER → 2018-05-11 | Outpatient (REF) | payer OTHER ==
[2018-05-11 15:00] LABS: APPEARANCE, URINE CLEAR (CLEAR); BACTERIA, URINE AUTO NEGATIVE (NEGATIVE); BILIRUBIN, URINE AUTO NEGATIVE (NEGATIVE); BLOOD, URINE BLOOD NEGATIVE (NEGATIVE); COLOR, URINE YELLOW (YELLOW); GLUCOSE, URINE (UA) AUTO NEGATIVE (NEGATIVE); KETONE, URINE AUTO NEGATIVE (NEGATIVE); LEUKOCYTE ESTERASE, URINE AUTO NEGATIVE (NEGATIVE); NITRITE, URINE AUTO NEGATIVE (NEGATIVE); PROTEIN, URINE AUTO NEGATIVE (NEGATIVE); RBC, URINE AUTO 0 /HPF (0-3); SPECIFIC GRAVITY URINE AUTO 1.005 (1.002-1.035); SQUAMOUS EPITHELIAL CELL UR AU 0 /HPF (0-6); UROBILINOGEN, URINE AUTO 0.2 mg/dL (0.0-2.0); WBC, URINE AUTO 0 /HPF (0-3)
== END ==
LOC: M LAB REF 13:56
PROVIDERS: ATTEND Physician Assistant Medical
DX: N39.0 Urinary tract infection, site not specified (principal)

== ENCOUNTER → 2018-06-02 | Outpatient (CLI) | payer OTHER ==
[~2018-06-02] MED LIST changes: +LISI10TA4 PO
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
== END ==
LOC: M PAIN 10:15
PROVIDERS: ATTEND Nurse Practitioner Family
DX: M54.2 Cervicalgia (principal); N18.3 Chronic kidney disease, stage 3 (moderate); I12.9 Hypertensive chronic kidney disease with stage 1 through stage 4 chronic kidney disease, or unspecified chronic kidney disease; E78.5 Hyperlipidemia, unspecified; E03.9 Hypothyroidism, unspecified; E55.9 Vitamin D deficiency, unspecified; F31.9 Bipolar disorder, unspecified; J44.9 Chronic obstructive pulmonary disease, unspecified; K21.9 Gastro-esophageal reflux disease without esophagitis; F17.210 Nicotine dependence, cigarettes, uncomplicated; E66.01 Morbid (severe) obesity due to excess calories; Z68.35 Body mass index [BMI] 35.0-35.9, adult; Z79.51 Long term (current) use of inhaled steroids; Z79.899 Other long term (current) drug therapy; Z88.1 Allergy status to other antibiotic agents; Z88.6 Allergy status to analgesic agent; Z88.5 Allergy status to narcotic agent; Z88.8 Allergy status to other drugs, medicaments and biological substances; Z90.710 Acquired absence of both cervix and uterus

== ENCOUNTER → 2018-06-09 | Outpatient (REF) | payer OTHER ==
[~2018-06-09] MED LIST changes: -LISI10TA4 PO
[2018-06-09 12:29] LABS: BASO # 0.1 10^3/uL (0.0-0.2); EOS # 0.4 10^3/uL (0.0-0.50); EOS % 3.7 % (0.0-3.0); HEMATOCRIT 44.9 % (36.0-47.0); HEMOGLOBIN 14.7 g/dl (12.0-15.5); LYMPH # 3.2 10^3/uL (1.5-4.5); LYMPH % 32.6 % (24.0-44.0); MEAN CORPUSCULAR HEMOGLOBIN 30.7 pg (27.0-33.0); MEAN CORPUSCULAR HGB CONC 32.7 g/dl (32.0-36.5); MEAN CORPUSCULAR VOLUME 93.7 fl (80.0-96.0); MONO # 0.9 10^3/uL (0.0-0.8); NEUTROPHILS # 5.2 10^3/uL (1.8-7.7); NEUTROPHILS % 52.9 % (36.0-66.0); PLATELET COUNT, AUTOMATED 203 10^3/uL (150-450); RED BLOOD COUNT 4.79 10^6/uL (4.00-5.40); WHITE BLOOD COUNT 9.8 10^3/uL (4.0-10.0)
[2018-06-09 12:53] LABS: CALCIUM LEVEL 8.6 MG/DL (8.8-10.2); CREATININE FOR GFR 1.3 MG/DL (0.55-1.30); GLOMERULAR FILTRATION RATE 44.5 (>45); POTASSIUM SERUM 4.5 MEQ/L (3.5-5.1)
== END ==
LOC: M SFHCPLAZ 11:07
PROVIDERS: ATTEND Family Medicine
DX: J06.9 Acute upper respiratory infection, unspecified (principal); N18.3 Chronic kidney disease, stage 3 (moderate)

== ENCOUNTER → 2018-06-11 | Outpatient (CLI) | payer OTHER ==
[~2018-06-11] MED LIST changes: +LISI10TA4 PO
--- NOTE | 2018-06-11 14:27 | REP ---
Clinical: Pain . Comparison: 04/09/2018 . Technique: PA and lateral. Findings: The mediastinum and cardiac silhouette are normal. The lung arriaga demonstrate chronic stable changes without acute consolidation, effusion, or pneumothorax. The skeletal structures are intact and normal. Impression: 1. No acute cardiopulmonary process. Electronically Signed by Kuldeep Borjas MD 06/11/2018 02:18 P
--- NOTE | 2018-06-11 15:07 | REP ---
ULTRASOUND RIGHT ARM SOFT TISSUES: Real-time sonographic evaluation of the right dorsal forearm and wrist performed in the region of pain and swelling. Fluid surrounds the extensor tendons in this region suggesting tenosynovitis. These likely represent the extensor carpi radialis, longus and brevis. There is no definite mass identified. Electronically Signed by Jamal Montero MD 06/11/2018 03:52 P
== END ==
LOC: M RAD 13:35
PROVIDERS: ATTEND Family Medicine
DX: M79.601 Pain in right arm (principal)

== ENCOUNTER → 2018-06-11 | Outpatient (CLI) | payer OTHER | LOC: M PT 12:53 | PROVIDERS: ATTEND Family Medicine | DX: M54.41 Lumbago with sciatica, right side (principal) ==

== ENCOUNTER 2018-06-22 10:08 | Day surgery (SDC) | payer OTHER ==
[~2018-06-22] VITALS: Ht 160 cm; Wt 90.2 kg
[~2018-06-22 10:08] MED LIST changes: +NS 1,000 ML IV ONE
[2018-06-22] MEDS ORDERED: LIDOCAINE 2% INJ 100 MG/5 ML SDV (FOR ANES.) As Ordered ONE (11:40)
[2018-06-22] MEDS ORDERED: PROPOFOL 200 MG/20 ML VIAL As Ordered ONE (11:40)
--- NOTE | 2018-06-22 12:28 | ROOR ---
Patient Name: Gabbi Guzman Procedure Date: 06/22/2018 11:56 AM Date of : 1955 Age: 62 Room: [facility] Gender: Female Note Status: Finalized Procedure: Total Colonoscopy to Cecum + Cold Snare Polypectomy Indications: Rectal bleeding Providers: Simon Ye MD Referring MD: Debo Howe MD Requesting Provider: Medicines: Monitored Anesthesia Care Complications: No immediate complications. Procedure: Pre-Anesthesia Assessment: - The heart rate, respiratory rate, oxygen saturations, blood pressure, adequacy of pulmonary ventilation, and response to care were monitored throughout the procedure. The Colonoscope was introduced through the anus and advanced to the cecum, identified by appendiceal orifice and ileocecal valve. The colonoscopy was performed without difficulty. The patient tolerated the procedure well. The quality of the bowel preparation was good. Findings: The perianal and digital rectal examinations were normal. Non-bleeding internal hemorrhoids were found during retroflexion. The hemorrhoids were small and Grade I (internal hemorrhoids that do not prolapse). Multiple small and large-mouthed diverticula were found in the recto-sigmoid colon, sigmoid colon and descending colon. Two sessile polyps were found in the cecum. The polyps were small in size. These polyps were removed with a cold snare. Resection and retrieval were complete. The exam was otherwise without abnormality on direct and retroflexion views. Impression: - Non-bleeding internal hemorrhoids. - Diverticulosis in the recto-sigmoid colon, in the sigmoid colon and in the descending colon. - Two small polyps in the cecum, removed with a cold snare. Resected and retrieved. - The examination was otherwise normal on direct and retroflexion views. - The exam was otherwise normal to the cecum. Recommendation: - Patient has a contact number available for emergencies. The signs and symptoms of potential delayed complications were discussed with the patient. Return to normal activities tomorrow. Written discharge instructions were provided to the patient. - High fiber diet. - Discharge patient to home. - Continue present medications. - Await pathology results. - Telephone GI clinic for pathology results in 1 week. - Repeat colonoscopy in 5 years for surveillance based on pathology results. - Return to referring physician. - Check Portal Online for Path Results.([email or web address] - The findings and recommendations were discussed with the patient's family. Simon Ye MD Simon Ye MD 06/22/2018 12:28:20 PM This report has been signed electronically. Number of Addenda: 0 Note Initiated On: 06/22/2018 11:56 AM Estimated Blood Loss: Estimated blood loss: none.
[2018-06-22 12:55] VITALS: BP 182/93
== END 2018-06-22 13:05 | disposition home or self-care (01) ==
LOC: M OPP 10:08
PROVIDERS: ATTEND Internal Medicine Gastroenterology
DX: K64.0 First degree hemorrhoids (principal); D12.0 Benign neoplasm of cecum; K62.5 Hemorrhage of anus and rectum; K57.30 Diverticulosis of large intestine without perforation or abscess without bleeding; G47.30 Sleep apnea, unspecified; Z88.8 Allergy status to other drugs, medicaments and biological substances; Z79.899 Other long term (current) drug therapy

== ENCOUNTER → 2018-07-03 | Outpatient (REF) | payer OTHER ==
[~2018-07-03] MED LIST changes: -NS 1,000 ML IV ONE
== END ==
LOC: M SFHCPLAZ 09:04
PROVIDERS: ATTEND Family Medicine
DX: Z11.4 Encounter for screening for human immunodeficiency virus [HIV] (principal)

== ENCOUNTER 2018-07-27 22:20 | Inpatient (IN) | payer OTHER ==
[~2018-07-27] VITALS: Ht 160 cm; Wt 89.7 kg
[~2018-07-27 22:20] MED LIST changes: -CYCL5TA PO; +CYCL5TAB5 PO; +HYDR-3715 PO; -LIDO2SOL10 TOP; +LIDO2SOL9 TOP; -NORC10TA21 PO; +NORC1TAB5 PO; -NORCOTAB PO
[2018-07-28] MEDS ORDERED: ONDANSETRON 4MG/2ML VIAL (J2405) IV ONE (01:30)
[2018-07-28] MEDS ORDERED: NS 1,000 ML IV ONE (01:30)
[2018-07-28 02:23] LABS: BASO # 0.1 10^3/uL (0.0-0.2); BASO % 0.3 % (0.0-1.0); EOS # 0.1 10^3/uL (0.0-0.50); EOS % 0.4 % (0.0-3.0); HEMATOCRIT 48.3 % (36.0-47.0); HEMOGLOBIN 15.8 g/dl (12.0-15.5); LYMPH # 0.9 10^3/uL (1.5-4.5); LYMPH % 4.8 % (24.0-44.0); MEAN CORPUSCULAR HEMOGLOBIN 30.9 pg (27.0-33.0); MEAN CORPUSCULAR HGB CONC 32.7 g/dl (32.0-36.5); MEAN CORPUSCULAR VOLUME 94.5 fl (80.0-96.0); MONO # 0.8 10^3/uL (0.0-0.8); MONO % 4.3 % (0.0-5.0); NEUTROPHILS % 89.6 % (36.0-66.0); PLATELET COUNT, AUTOMATED 171 10^3/uL (150-450); RED BLOOD COUNT 5.11 10^6/uL (4.00-5.40); WHITE BLOOD COUNT 17.8 10^3/uL (4.0-10.0)
[2018-07-28 03:05] LABS: ALBUMIN 3.6 GM/DL (3.2-5.2); ALT/SGPT 47 U/L (12-78); BILIRUBIN,DIRECT < 0.1 MG/DL (0.0-0.2); BILIRUBIN,TOTAL 0.5 MG/DL (0.2-1.0); BLOOD UREA NITROGEN 13 MG/DL (7-18); CALCIUM LEVEL 8.1 MG/DL (8.8-10.2); CARBON DIOXIDE LEVEL 25 MEQ/L (21-32); CHLORIDE LEVEL 105 MEQ/L (98-107); CREATININE FOR GFR 1.25 MG/DL (0.55-1.30); GLOMERULAR FILTRATION RATE 46.5 (>45); GLUCOSE, FASTING 137 MG/DL (70-100); LIPASE 154 U/L (73-393); POTASSIUM SERUM 4.4 MEQ/L (3.5-5.1); SODIUM LEVEL 137 MEQ/L (136-145); TOTAL PROTEIN 6.8 GM/DL (6.4-8.2)
[2018-07-28] MEDS ORDERED: ISOVUE-370 76% 125ML VIAL (Q9967 PER ML) As Ordered ONE (03:08)
--- NOTE | 2018-07-28 05:18 | REPVR ---
EXAM: CT Abdomen and Pelvis With Contrast EXAM DATE/TIME: 07/28/2018 1:18 AM CLINICAL HISTORY: 62 years old, female; Pain; Abdominal pain; Localized; Left lower quadrant (llq); Additional info: Llq pain, HX diverticulitis, nvd TECHNIQUE: Axial computed tomography images of the abdomen and pelvis with intravenous contrast. All CT scans at this facility use at least one of these dose optimization techniques: automated exposure control; mA and/or kV adjustment per patient size (includes targeted exams where dose is matched to clinical indication); or iterative reconstruction. Coronal and sagittal reformatted images were created and reviewed. CONTRAST: Contrast Material: 100 ml of iso; Contrast Route: ac COMPARISON: CT ABD/PEL W/IV ORAL CONTRAS 10/31/2017 9:03 PM FINDINGS: Lower thorax: Minimal bibasilar fibro-atelectatic change, right greater than left. ABDOMEN: Liver: There is fatty infiltration of the liver. Gallbladder and bile ducts: Status post cholecystectomy. Pancreas: Normal. No ductal dilation. Spleen: Normal. No splenomegaly. Adrenals: Normal. No mass. Kidneys and ureters: There are right renal cysts measuring up to 18 mm. Areas of parenchymal loss involving the right kidney. Stomach and bowel: Sutures about the GE junction with question of a fundoplication. Much of the colon is collapsed or contracted. There is question of slight colonic wall thickening with pericolonic induration. Borderline distention proximal small bowel with collapsed distal small bowel. There is abrupt point of transition caudal and deep to the umbilicus in the anterior upper pelvis on series 203, image #[id number]. Appendix: A normal appendix is seen. PELVIS: Bladder: Mild distention of the urinary bladder to the mid L5 level. Reproductive: Status post hysterectomy. ABDOMEN and PELVIS: Intraperitoneal space: Trace free fluid in the pelvis. Bones/joints: No acute fracture. No dislocation. Vasculature: Normal. No abdominal aortic aneurysm. Lymph nodes: Normal. No enlarged lymph nodes. IMPRESSION: 1. Bibasilar fibro-atelectatic change which is slightly decreased since 10/31/2017. 2. Low-grade small bowel obstruction with a point of transition in the upper anterior pelvis at midline and likely reflects an adhesion. 3. There has been prior cholecystectomy and hysterectomy. 4. Trace free fluid in the pelvis. 5. Fatty infiltration of the liver. 6. Mild distention of the urinary bladder which is increased since the prior study. 7. Question of minimal nonspecific pancolitis. Electronically signed by: Darren Anglin On 07/28/2018 05:17:55 AM
[2018-07-28] MEDS ORDERED: NS 1,000 ML IV SCH (05:31)
[2018-07-28] MEDS ORDERED: CYCL10TA PO (06:13)
[2018-07-28] MEDS ORDERED: CLON1TAB8 PO ×2 (06:13)
[2018-07-28] MEDS ORDERED: LIDO1CRE2 EXT (06:13)
[2018-07-28] MEDS ORDERED: NICO21DI31 TD (06:13)
[2018-07-28] MEDS ORDERED: IPRA0.00 INH (06:13)
[2018-07-28] MEDS ORDERED: CRAN400C PO (06:13)
[2018-07-28] MEDS ORDERED: VENTAER INH (06:13)
[2018-07-28] MEDS ORDERED: ONDA4TAB6 PO (06:13)
[2018-07-28] MEDS ORDERED: SERO400T PO (06:13)
[2018-07-28] MEDS ORDERED: COMBAER6 INH (06:13)
[2018-07-28] MEDS ORDERED: ESTR62CR PV (06:13)
[2018-07-28] MEDS: IPRATROPIUM 0.5MG/ALBUTEROL 2.5MG INH SOL UD 3ML (DUONEB)(J7620) NEB SCH ×3 (08:42→20:14)
[2018-07-28] MEDS: PANTOPRAZOLE 40MG INJ (PROTONIX) (C9113) IV SCH (08:55)
[2018-07-28] MEDS: LR 1,000 ML IV SCH ×3 (08:56→23:28)
[2018-07-28] MEDS: LISINOPRIL 10 MG TAB PO SCH (08:58)
[2018-07-28] MEDS: ONDANSETRON 4MG/2ML VIAL (J2405) IV PRN (12:25)
[2018-07-28] MEDS: KETOROLAC 30 MG/ML VIAL (J1885) IV PRN ×2 (12:45→20:54)
[2018-07-28 13:26] VITALS: BP 133/70
[2018-07-28] MEDS: MORPHINE 4 MG/ML 1ML VIAL/SYRINGE (J2270) IV PRN ×2 (16:33→19:14)
--- NOTE | 2018-07-28 17:00 | IPN ---
DATE: 07/28/2018 HISTORY: The patient was admitted early this morning with abdominal pain with some nausea and vomiting but also diarrhea. She had a CT scan that the radiologist interpreted as being consistent with a partial small-bowel obstruction. I reviewed the images and did not find them striking but there were some loops of small bowel that appeared to be fluid-filled and mildly distended. I did not identify a definite point of obstruction. She has had several prior surgical procedures and she was placed on observation. VITAL SIGNS: Since being transferred to the floor she has remained afebrile. Her pulse remains at about 100-105. Respiratory rate is 18 and her blood pressure is good. INTAKE AND OUTPUT: The patient has had 2 liters of IV fluid in and has had a urine output recorded of 900 mL. She has received a dose of Toradol for pain earlier. PHYSICAL EXAMINATION: The patient is alert. She reports she is still having abdominal pain. She has not had any further vomiting. She has noted some bleeding in her loose stool today but does have a history of hemorrhoids and diverticulosis and had a colonoscopy about a month and half ago. The patient's abdomen is obese and somewhat protuberant. She does have bowel sounds present, although she does have a few tinkly sounds in the epigastrium. On palpation the abdomen is primarily soft but she does have tenderness primarily in the mid epigastrium and then extending down below the umbilicus into the mid abdomen. IMPRESSION: Patient has had no further nausea or vomiting but continues to have abdominal pain. PLAN: She has a scheduled KUB for 4 o'clock this afternoon. I will review this and if the findings are felt to be consistent with a bowel obstruction, I will plan on inserting an NG tube and continuing close observation. PHILLIP
[2018-07-28 18:00] VITALS: BP 134/68
[2018-07-28 19:22] LABS: BASO % 0.2 % (0.0-1.0); HEMATOCRIT 43.4 % (36.0-47.0); HEMOGLOBIN 14.5 g/dl (12.0-15.5); LYMPH # 0.9 10^3/uL (1.5-4.5); LYMPH % 4.7 % (24.0-44.0); MEAN CORPUSCULAR HEMOGLOBIN 30.9 pg (27.0-33.0); MEAN CORPUSCULAR HGB CONC 33.4 g/dl (32.0-36.5); MEAN CORPUSCULAR VOLUME 92.3 fl (80.0-96.0); MONO # 1.5 10^3/uL (0.0-0.8); MONO % 7.5 % (0.0-5.0); NEUTROPHILS # 17.2 10^3/uL (1.8-7.7); NEUTROPHILS % 87.1 % (36.0-66.0); PLATELET COUNT, AUTOMATED 167 10^3/uL (150-450); WHITE BLOOD COUNT 19.7 10^3/uL (4.0-10.0)
[2018-07-28 20:41] LABS: CALCIUM LEVEL 7.9 MG/DL (8.8-10.2); CREATININE FOR GFR 1.07 MG/DL (0.55-1.30); GLOMERULAR FILTRATION RATE 55.7 (>45); POTASSIUM SERUM 4.1 MEQ/L (3.5-5.1)
[2018-07-28] MEDS: MIRTAZAPINE 15 MG TAB PO SCH (20:54)
[2018-07-28 22:00] VITALS: BP 139/74
[2018-07-28] MEDS: PIPERACILLIN/TAZOBACTAM SOD 3.375 GM in D5W MINI-BAG PLUS 50 ML IV SCH (23:24)
[2018-07-29] MEDS: MORPHINE 4 MG/ML 1ML VIAL/SYRINGE (J2270) IV PRN ×3 (00:46→18:49)
[2018-07-29 02:00] VITALS: BP 135/74
[2018-07-29] MEDS: IPRATROPIUM 0.5MG/ALBUTEROL 2.5MG INH SOL UD 3ML (DUONEB)(J7620) NEB SCH ×4 (02:00→20:00)
--- NOTE | 2018-07-29 03:53 | REP ---
Clinical: Possible bowel obstruction. Evaluate intraluminal contrast pattern. Technique: Single supine view of the abdomen and pelvis. Findings: Bowel gas pattern is nonspecific and no significant residual bowel contrast is identified. No evidence for obstruction or perforation. Surgical clips in the right upper quadrant suggest prior cholecystectomy. Contrast noted within the bladder. Skeletal structures are intact. Impression: Bowel gas pattern is nonspecific and no residual intraluminal contrast is identified. Electronically Signed by Kuldeep Borjas MD 07/29/2018 03:43 A
[2018-07-29] MEDS: PIPERACILLIN/TAZOBACTAM SOD 3.375 GM in D5W MINI-BAG PLUS 50 ML IV SCH ×4 (05:50→22:20)
[2018-07-29 06:00] VITALS: BP 146/80
[2018-07-29] MEDS: KETOROLAC 30 MG/ML VIAL (J1885) IV PRN ×3 (07:01→22:27)
[2018-07-29] MEDS: LISINOPRIL 10 MG TAB PO SCH (08:11)
[2018-07-29] MEDS: PANTOPRAZOLE 40MG INJ (PROTONIX) (C9113) IV SCH (08:11)
--- NOTE | 2018-07-29 08:19 | HPE ---
DATE OF ADMISSION: 07/28/2018 The patient is being placed on observation status for abdominal pain and a possible small bowel obstruction. HISTORY OF PRESENT ILLNESS: The patient is a 62-year-old woman who presented to the emergency department at approximately 10:20 in the evening on July 27 complaining of abdominal pain with some nausea and vomiting. This had begun on the afternoon of Friday the . She also noted the onset of some diarrhea. She described pain in the mid abdomen which was fairly constant. After presenting to the emergency department she had some basic laboratory studies obtained. She also then underwent a CT scan of the abdomen and pelvis. The patient does have a history of several prior abdominal procedures including a laparoscopic cholecystectomy, hysterectomy, and a laparoscopic ventral hernia repair with mesh. Her most recent surgery within the abdomen was in June 2017 when she underwent a laparoscopic lysis of adhesions with replacement of some abdominal wall mesh with new mesh to repair several small hernias. The patient's laboratory studies showed a elevation of the white blood cell count to approximately 18 with 90% neutrophils. Her urinalysis was not suggestive of a urinary tract infection. The CT scan was interpreted by the radiologist as showing some mildly distended fluid-filled small bowel in the mid abdomen. The radiologist felt there might be an area of caliber change in the midabdomen close to the anterior abdominal wall. The patient was monitored in the emergency department and I was contacted at approximately 05:30 in the morning on the . The patient was seen and evaluated at approximately 07:00 a.m. She has had continued discomfort, but has also had some occasional diarrhea, though her vomiting appears to have stopped. She is now placed on observation status to monitor her for further evidence of an obstruction versus perhaps gastroenteritis or other intra-abdominal process. ALLERGIES: The patient reports allergies to: 1. HALDOL. 2. IBUPROFEN. 3. METHOCARBAMOL. 4. TETRACYCLINE. 5. TRAZODONE. 6. BUSPIRONE. 7. RISPERIDONE. 8. TRAMADOL. 9. ZAFIRLUKAST. CURRENT MEDICATIONS: Include: - levothyroxine 125 mcg by mouth daily - Protonix 40 mg twice daily - Arnuity Ellipta 100 mcg inhaled daily - tamsulosin 0.4 mg by mouth daily - mirtazapine 30 mg by mouth daily at bedtime - multivitamin daily - Gaviscon extra strength one chew twice a day as needed - vitamin D 50,000 units once weekly on Wednesdays - lisinopril 10 mg by mouth daily - Amelia 10/325 tablets one tablet by mouth four times a day as needed for pain - albuterol sulfate inhaler two puffs every 4 hours as needed shortness of breath - Combivent inhaler one puff inhaled four times daily as needed - albuterol/ipratropium nebulizers inhaled every 6 hours as needed for shortness of breath - clonazepam as needed for anxiety or agitation up to a total of 2.5 mg per day - Premarin 0.5 grams vaginally twice weekly - cranberry extract - cyclobenzaprine 10 mg by mouth three times a day as needed for muscle spasms - lidocaine cream - nicotine patches - Zofran 4 mg every 4 hours as needed for nausea - Seroquel 400 mg by mouth daily at bedtime SURGICAL HISTORY: Includes: A laparoscopic cholecystectomy. She had a needle localized breast biopsy on the right many years ago. She had a laparoscopic incisional hernia repair in 2014. In 2015 she underwent a laparoscopic lysis of adhesions. She had a right renal stone removed cystoscopically in 2016. She has had surgery on her left foot in 2017. She has had a vaginal hysterectomy many years ago. She has had laparoscopic lysis of adhesions with replacement of her prior mesh on the midline. She had an EGD in August of 2017. She had removal of an abdominal wall subcutaneous mass, probably old seroma in December of 2017. She had a colonoscope in June of 2018, which revealed two small cecal polyps and extensive diverticulosis. MEDICAL HISTORY: The patient has chronic back pain that is quite limiting. She has a history of hypothyroidism. The patient has a history of hypertension and headaches. She has chronic obstructive pulmonary disease with some recent bronchitis. Reports a history of sleep apnea. She has a history of gastroesophageal reflux disease. She has had some rectal bleeding. She was noted to have hemorrhoids and diverticulosis on her most recent colonoscopy. The patient has some chronic kidney disease stage II-III. She reportedly has a history of anxiety and schizoaffective disorder. SOCIAL HISTORY: The patient is . She denies significant alcohol intake, but is a regular smoker. FAMILY HISTORY: Noncontributory. REVIEW OF SYSTEMS: Shows no history of recent chest pain or palpitations. She denies any history of deep vein thrombosis (DVT) or pulmonary embolus. She had some recent bronchitis treated with antibiotics, but reports this had improved. She has had no sore throat, cough or sputum production. Does have chronic back pain that she lives with. This is quite limiting of her activity. She does report some waxing and waning abdominal soreness and some nausea over the last few weeks. PHYSICAL EXAMINATION: Physical exam reveals a pleasant but somewhat obese woman lying quietly on the hospital stretcher. She appears tired and older than her stated age of 62 years. Skin is warm and dry. Sclerae are anicteric. Neck is supple without mass. Heart exam shows a regular rate and rhythm at about 100. The lungs show slightly distant but clear breath sounds bilaterally. The abdomen is protuberant. She has a number of small incisions noted in the mid and upper abdomen. She does have bowel sounds present, though there do appear to be a few tinkly sounds in the mid abdomen. On percussion there is no tympany to percussion. She does have tenderness right in the midabdomen in the periumbilical and supraumbilical area. On palpation there is tenderness in the mid abdomen and then extending down along the lower midabdomen. The abdomen is relatively soft and without tenderness on the lateral aspects bilaterally. There is no definite hernia identified. The extremities are without edema. She has palpable radial and pedal pulses. LABORATORY STUDIES: Include a CBC with diff which revealed a white blood cell count of 18,000 with a hemoglobin of 16, hematocrit of 48 and a platelet count of 171,000. Differential count revealed 90% neutrophils, 5% lymphocytes and 4% monocytes. Her urinalysis showed a pH of 6.0 with a specific gravity of 1.018 and no strong evidence for urinary tract infection. Her chemistry profile showed a sodium of 137, potassium 4.4, chloride 105, CO2 of 25, BUN of 13, creatinine 1.2 and a glucose of 137. Her liver function tests are normal with total protein of 6.8 and an albumin of 3.4. She had a lipase of 154. The CT scan images I reviewed and I also reviewed the report. She does have evidence of prior surgery in that the gallbladder is surgically absent and there are a couple of clips noted in the gallbladder fossa. The uterus is surgically absent. There appeared to be some small bowel that is likely adherent to the anterior abdominal wall in the periumbilical area consistent with her prior mesh repair of ventral hernia in this area. There are some mid abdominal small bowel loops that appear to be mildly dilated and fluid-filled. This is not a striking finding. There is some scattered air in the small and large bowel. Bladder appears to be quite distended. There is no free air noted within the abdomen and no definite inflammation or abscesses seen. IMPRESSION: 1. Possible small bowel obstruction. 2. Hypothyroidism. 3. Hypertension. 4. Chronic obstructive pulmonary disease. 5. Gastroesophageal reflux. 6. Schizoaffective disorder and anxiety. PLAN: The patient will be placed on observation. The changes in her x-ray imaging are not striking and do not I think warrant any urgent surgical intervention. She will be placed on observation and will receive IV maintenance fluid. I will not place an NG tube at this point as she has not thrown up in several hours and she has reported some continued diarrhea. She certainly is at risk for a bowel obstruction given her several prior abdominal procedures. The patient was counseled that she would be observed clinically and would have a repeat abdominal x-ray obtained later in the afternoon to look for any changes in the pattern of bowel gas. She will receive analgesics as necessary. She will be kept nothing by mouth with the exception of a few oral medications that will be continued. The patient had an opportunity to ask questions and desires to proceed as I have outlined the plan of care. PHILLIP
[2018-07-29 11:05] VITALS: BP 124/58
[2018-07-29] MEDS: LR 1,000 ML IV SCH ×2 (12:33)
[2018-07-29] MEDS: TAMSULOSIN 0.4 MG CAP PO SCH (12:33)
[2018-07-29 14:00] VITALS: BP 136/63
--- NOTE | 2018-07-29 14:38 | REP ---
CT ABDOMEN PELVIS WITH OUT IV OR ORAL CONTRAST: HISTORY: Follow up abdominal pain. Comparison is made with the CT study from July 28, 2018. 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 There are two loops of mildly air dilated colon in the central abdomen. No small bowel dilation is appreciated. The axial CT images at the lung bases show bilateral lower lobe subsegmental dependent atelectatic changes. There is an air containing bolus in the left lower lobe. This is unchanged but the subsegmental atelectatic changes are new from yesterday's CT study. No definite pleural effusion is seen. There is marked diffuse fatty infiltration of the liver again noted. A nasogastric tube is seen terminating in the distal antrum. There is multifocal cortical atrophy in the upper pole right kidney. There is a small cyst in the lower pole right kidney. No hydronephrosis is seen on either side. No pancreatic or adrenal abnormality is noted. The gallbladder is surgically absent. There are postoperative changes at the gastric fundus as well. There is mild mural thickening in the distal colon affecting the sigmoid colon and descending segments the colon with mild pericolonic fat streaking. This extends into the sigmoid. Urinary bladder is filled with opacified urine from yesterday's CT study done with contrast. There is no evidence of small bowel obstruction. A normal appendix is seen. Small bowel loops are improved. IMPRESSION: NG tube in place. Small bowel dilation is improved. A left colitis pattern persists with mural thickening and some pericolonic edema in the left colon from splenic flexure distally. Advanced fatty infiltration of the liver. Post cholecystectomy and gastric fundus surgery. Electronically Signed by Franklyn King MD 07/29/2018 05:13 P
[2018-07-29] MEDS: ACETAMINOPHEN TAB 650MG DOSE (2X325MG) PO PRN ×2 (15:31→19:48)
[2018-07-29 20:00] VITALS: BP 92/64
[2018-07-29] MEDS ORDERED: NS 500 ML IV ONE (20:15)
[2018-07-29] MEDS ORDERED: LR 500 ML IV ONE ×2 (20:15→20:30)
[2018-07-29 21:00] VITALS: BP 127/67
[2018-07-29] MEDS: MIRTAZAPINE 15 MG TAB PO SCH (22:21)
[2018-07-30] VITALS: BP 105/72
[2018-07-30] MEDS: IPRATROPIUM 0.5MG/ALBUTEROL 2.5MG INH SOL UD 3ML (DUONEB)(J7620) NEB SCH ×4 (02:00→20:00)
[2018-07-30] MEDS: ACETAMINOPHEN TAB 650MG DOSE (2X325MG) PO PRN (02:22)
[2018-07-30] MEDS: ONDANSETRON 4MG/2ML VIAL (J2405) IV PRN ×2 (02:22→18:35)
[2018-07-30 04:00] VITALS: BP 134/78
[2018-07-30] MEDS: KETOROLAC 30 MG/ML VIAL (J1885) IV PRN ×3 (04:50→18:33)
[2018-07-30] MEDS: PIPERACILLIN/TAZOBACTAM SOD 3.375 GM in D5W MINI-BAG PLUS 50 ML IV SCH ×4 (04:50→23:20)
[2018-07-30] MEDS: LR 1,000 ML IV SCH ×3 (06:00→21:40)
[2018-07-30 08:02] LABS: HEMATOCRIT 38.1 % (36.0-47.0); HEMOGLOBIN 12.6 g/dl (12.0-15.5); MEAN CORPUSCULAR HEMOGLOBIN 30.9 pg (27.0-33.0); MEAN CORPUSCULAR HGB CONC 33.1 g/dl (32.0-36.5); MEAN CORPUSCULAR VOLUME 93.4 fl (80.0-96.0); PLATELET COUNT, AUTOMATED 133 10^3/uL (150-450); RED BLOOD COUNT 4.08 10^6/uL (4.00-5.40); WHITE BLOOD COUNT 12.7 10^3/uL (4.0-10.0)
--- NOTE | 2018-07-30 08:16 | REP ---
Clinical: Aspiration pneumonia. Technique: Axial noncontrast images from the thoracic inlet to the upper abdomen with coronal and sagittal re-formations. Comparison: Abdominal CT 07/28/2018 Findings: New moderate area of consolidation with air bronchograms noted in the left lower lobe along with smaller areas of consolidation in the lingula and right lower lobe. These findings represent an acute change when compared to lung bases on abdominal CT dated 07/28/2018 and consistent with the given history of aspiration pneumonia. No significant effusion. No pneumothorax. Tracheobronchial tree is patent. A nasogastric tube is identified extending into the stomach. No significant adenopathy. The mediastinum demonstrates relatively normal thoracic aorta, pulmonary vasculature and heart/pericardium. Limited upper abdomen demonstrates hepatosteatosis. Impression: 1. Moderate consolidation in the left lower lobe along with small areas of consolidation involving the right lower lobe and lingula represent new findings compared to 07/28/2018 and consistent with aspiration pneumonia. Electronically Signed by Kuldeep Borjas MD 07/30/2018 08:07 A
[2018-07-30 08:18] LABS: ERYTHROCYTE SEDIMENTATION RATE 49 mm/hr (0-30)
[2018-07-30 08:44] LABS: C REACTIVE PROTEIN QUANTITATIV 28.8 MG/DL (0.00-0.30); CALCIUM LEVEL 7.9 MG/DL (8.8-10.2); CREATININE FOR GFR 1.11 MG/DL (0.55-1.30); GLOMERULAR FILTRATION RATE 53.4 (>45); POTASSIUM SERUM 3.4 MEQ/L (3.5-5.1)
--- NOTE | 2018-07-30 08:56 | CR ---
DATE OF CONSULTATION: 07/29/2018 REQUESTING PHYSICIAN: Dr. Ziegler, general surgery. REASON FOR CONSULTATION: Abdominal pain. HISTORY OF PRESENT ILLNESS: The patient is a 62-year-old female who tells me that on Friday she began to have some nausea and vomiting, developed abdominal pain with diarrhea as well. She tells me that her abdomen progressively became more distended prompting her to present to the emergency room. She tells me at this time that she is feeling somewhat better after having an NG tube placed, however she tells me that she had a fever at home, although she never measured, and she still feels as though she is having a fever now. She tells me that she still has some tenderness in her belly. It is more in the upper abdomen bilaterally and not the lower abdomen. She otherwise denies cough, sick contacts, recent travel, changes in her dietary habits. PAST MEDICAL HISTORY: Hypertension. Hypothyroidism. Chronic obstructive pulmonary disease (COPD). Obstructive sleep apnea (FLACO) for which she follows with Dr. Crooks. Several bouts of recent bronchitis which were treated with numerous courses of antibiotics. Gastroesophageal reflux disease (GERD). Schizoaffective disorder. Chronic kidney disease. Irritable bowel syndrome. Urge incontinence. Dyslipidemia. Nonalcoholic fatty liver disease. Vitamin D deficiency. Chronic back pain. Hemorrhoids. CURRENT MEDICATIONS: - Flomax 0.4 mg by mouth daily - Zosyn every 6 hours - Remeron 30 mg at bedtime - Klonopin 0.5 mg every 6 hours as needed - pantoprazole 40 mg IV daily - lisinopril 10 mg daily - DuoNebs every 6 hours - Zofran every 6 hours as needed nausea - Tylenol 650 mg every 4 hours as needed pain - Toradol 15 mg every 6 hours IV as needed pain - morphine sulfate 2 mg IV every 2 hours as needed pain - Lactated Ringer's at 125 mL/hour Her home conjugated estrogen is on hold as well as her cyclobenzaprine, vitamin D, levothyroxine, multivitamin, nicotine patch and Seroquel. ALLERGIES: 1. HALDOL. 2. IBUPROFEN. 3. BUSPIRONE. 4. METHOCARBAMOL. 5. RISPERIDONE. 6. TETRACYCLINE. 7. TRAMADOL. 8. TRAZODONE. 9. ZAFIRLUKAST. PAST SURGICAL HISTORY: She has a fairly extensive surgical history including: Laparoscopic cholecystectomy. Biopsy of the right breast. Laparoscopic incisional hernia repair. Lysis of adhesions. Cystoscopic nephrolithiasis removal. Surgery of the left foot. Laparoscopic lysis of adhesions. Replacement of a previous mesh in the midline. Colonoscopy this year which revealed two small cecal polyps and extensive diverticulosis. SOCIAL HISTORY: She is . She is accompanied by her brother during the exam today. She denies any alcohol intake. She normally uses nicotine patches to avoid smoking, but she still is smoking. FAMILY HISTORY: Noncontributory. REVIEW OF SYSTEMS: Negative other than what is listed in the HPI. PHYSICAL EXAMINATION: VITAL SIGNS: Temperature 101.1, pulse 101, respiratory rate 20, blood pressure 136/63, oxygen saturation 93% on room air. GENERAL: She is a morbidly obese female laying in bed. She is awake, alert and oriented times three, conversant. She is accompanied by her brother. The patient does not appear to be in acute distress. She has an NG tube in place, which is clamped. She has fairly dry mucous membranes. CARDIOVASCULAR EXAM: S1 and S2 is regular. She was not tachycardic at the time of my exam. RESPIRATORY EXAM: Is actually fairly clear, but distant secondary to body habitus. ABDOMINAL EXAM: Bowel sounds are diminished. Her abdomen is diffusely tender in the bilateral upper quadrants, and is grossly obese. EXTREMITIES: No clubbing, cyanosis, or edema. LABORATORY STUDIES: WBC 19.7, hemoglobin 14.5, platelet count 167. Chemistry panel - sodium 140, potassium 4.1, chloride 109, bicarb 23, BUN 9, creatinine 1.0. Urinalysis was fairly unremarkable. No microbiology has been drawn. She did have two CT scans completed. The most recent one revealed NG tube in place, small bowel dilation improved, left colitis pattern persists with mural thickening and some pericolonic edema in the left colon from the splenic flexure distally. Advanced fatty infiltration of the liver. Post cholecystectomy and gastric fundus surgery. ASSESSMENT/PLAN: This is a 62-year-old female with abdominal pain. 1. Nausea, vomiting and abdominal pain. The etiology is not immediately clear. The thought process initially was that this was a small bowel obstruction. The small bowels do appear to be improved with NG tube placement. She certainly does appear to have a septic appearance with her leukocytosis, fever and intermittent tachycardia. I agree with empiric Zosyn. Potential sources could be a possible aspiration event causing an aspiration pneumonia, although she does not appear to be symptomatic regarding this. I will check her CT of her chest. It is also certainly possible that she may have some ischemic bowel given the involvement of the splenic flexure on her CT scan as per the radiology report. I will check a lactic acid and occult stool for blood. I think the lesser likely would be any diverticulitis. A GI PCR panel has been ordered. Certainly an infectious colitis is also possible. She is on Zosyn which should adequately cover. A sample has yet to be retrieved as her diarrhea appears to be improving, which is a good thing. Otherwise, I agree with current management. 2. Urge incontinence. Continue with Flomax. 3. Mood disorder and anxiety. Continue with Remeron and Klonopin. Consider resuming her home Seroquel when able. 4. Gastroesophageal reflux disease (GERD). She is on IV Protonix. 5. Hypertension. She is on lisinopril and her blood pressure is well controlled. Could consider holding this should she begin to drop her pressures. 6. COPD. Appears to be at her baseline respiratory status. Continue with nebulizer treatments. Chronic and stable. 7. Chronic pain. She is currently receiving ketorolac and IV morphine. She is unable to take her home cyclobenzaprine. 8. Tobacco abuse. Cessation counseling provided. If no contraindication consider resuming her nicotine patches. 9. Obstructive sleep apnea (FLACO). When her NG tube is removed consider having her bring in her home CPAP to use while hospitalized. 10. Hypothyroidism. Could consider intravenous levothyroxine if she is intended to be nothing by mouth for a long period of time. 11. Schizoaffective disorder. As outlined above, consider resuming Seroquel when able. 12. Chronic kidney disease. She appears to be stable with minimal disease on my review of her labs. 13. Nonalcoholic fatty liver disease. Possibly secondary to her obesity. Appears to be fairly mild. 14. Vitamin D deficiency. Consider resuming her home supplementation when she is able to tolerate p.o. Thank you for involving us in this interesting patient's care. Will continue to follow along with you and follow-up her CT findings as well as blood cultures, lactic acid, stool occult for blood. Will be happy to continue to follow along with you. PHILLIP
[2018-07-30] MEDS: MORPHINE 4 MG/ML 1ML VIAL/SYRINGE (J2270) IV PRN ×3 (09:39→21:39)
[2018-07-30] MEDS: PANTOPRAZOLE 40MG INJ (PROTONIX) (C9113) IV SCH (09:40)
[2018-07-30] MEDS: LISINOPRIL 10 MG TAB PO SCH (09:40)
[2018-07-30 10:00] VITALS: BP 123/59
[2018-07-30] MEDS: TAMSULOSIN 0.4 MG CAP PO SCH (11:13)
--- NOTE | 2018-07-30 12:49 | IPNPDOC ---
Date Seen The patient was seen on 07/30/18. Progress Note SUBJECTIVE: Patient reports to me this morning that she is feeling better her belly pain is improved she denies any further nausea and diarrhea or vomiting OBJECTIVE PHYSICAL EXAMINATION: VITAL SIGNS: Please see below. GENERAL: Obese female laying in bed she does not appear to be in any acute distress HEENT: She has an NG tube in place difficult to assess for any elevation and CVP cranial nerves appear grossly intact CARDIOVASCULAR: S1-S2 regular. RESPIRATORY: Fairly Clear to auscultation bilaterally may be some diminished breath sounds at the bases. ABDOMINAL: Grossly obese with distention there is some tenderness to deep palpation in the lower quadrants bilaterally diminished bowel sounds EXTREMITIES: No clubbing cyanosis or edema LABORATORY DATA, IMAGING STUDIES, MICROBIOLOGY: Please see below. ASSESSMENT AND PLAN: This is a 62-year-old female with abdominal pain and fever. PROBLEMS: 1. Abdominal pain: She may have presented with small bowel obstruction versus colitis it does appear to be improving her pain is resolving with antibiotics and NG tube will defer to surgery when this can be removed and diet resumed my guess would be sometime in the near future. 2. Fever: Possibly related to infectious colitis however negative GI PCR panel and the resolution of her diarrhea being think is less suspicious I suspect she may present with a small bowel obstruction and aspirated during her fits of vomiting causing her developed a fever later. Would continue Zosyn for now which is able to tolerate by mouth we'll transition her to by mouth Levaquin to complete a seven-day course of antibiotics. I would think once the patient is able to tolerate by mouth and 24 hours without fever she could likely be discharged home to do this. Otherwise I would recommend no further changes to her home education regimen Please not hesitate to call with any specific questions thank you VS, I&O, 24H, Zaira Vital Signs/I&O Vital Signs Date Time Temp Pulse Resp B/P (MAP) Pulse Ox O2 Delivery O2 Flow Rate FiO2 07/30/18 10:00 98.3 77 16 123/59 (80) 95 07/28/18 12:26 Room Air I&O- Last 24 Hours up to 6 AM 07/30/18 06:00 Intake Total 0 ml Output Total 1150 ml Balance -1150 ml Laboratory Data 24H LABS Laboratory Tests 2 07/29/18 19:32: Lactic Acid Level 2.0 07/30/18 07:21: Nucleated Red Blood Cells % (auto) 0.0, Erythrocyte Sedimentation Rate 49H, Anion Gap 8, Glomerular Filtration Rate 53.4, Blood Urea Nitrogen 15#, Creatinine 1.11, Sodium Level 141, Potassium Level 3.4L, Chloride Level 109H, Carbon Dioxide Level 24, Calcium Level 7.9L, C-Reactive Protein, Quantitative 28.80H CBC/BMP Laboratory Tests 07/30/18 07:21 Red Blood Count 4.08, Mean Corpuscular Volume 93.4, Mean Corpuscular Hemoglobin 30.9, Mean Corpuscular Hemoglobin Concent 33.1, Red Cell Distribution Width 12.5, Calcium Level 7.9 L Microbiology Microbiology 07/29/18 Blood Culture, Received Pending 07/29/18 Blood Culture, Received Pending 07/30/18 Stool Occult Blood (RHIANNA) - Final, Complete 07/30/18 Gastrointestinal Tract Panel (PCR) - Final, Complete AMIRA LOCKHART MD Jul 30, 2018 12:49
[2018-07-30 14:00] VITALS: BP 116/72
--- NOTE | 2018-07-30 15:32 | IPN ---
DATE: 07/29/2018 HISTORY: Patient is a 62-year-old woman admitted on the morning of 07/28/2018 with abdominal pain with a history of some nausea and vomiting and some diarrhea. She had developed some rectal bleeding after admission. A CT scan had suggested a possible bowel obstruction, though my impression was that the findings were not striking. A followup KUB on the afternoon of 07/28/2018 was not strongly suggestive of a bowel obstruction. Repeat laboratory studies revealed that her white blood cell count was still elevated and had actually risen to approximately 20,000 with 87% neutrophils. She was started on empiric intravenous antibiotics with Zosyn. A repeat CT scan was ordered for this morning. VITAL SIGNS: The patient has been afebrile other than a temperature up to 100 degrees on the evening of 07/28/2018. Her pulse has been holding at about 100 and her blood pressure is good. Intake and output shows that she had 900 mL of urine recorded yesterday. A nasogastric tube had been admitted last evening as well and this had 200 mL yesterday and 500 mL noted on 07/29/2018. PHYSICAL EXAMINATION: The patient remains alert and oriented. She still complains of some abdominal discomfort. Palpation of the abdomen reveals the abdomen to be somewhat distended. She does have bowel sounds present. She has some tenderness primarily in the mid and left lower portions of the abdomen which is mild to moderate in severity. Heart and lung exams are unremarkable. Laboratory studies were not repeated on 07/29/2018. IMAGING: The patient's CT scan done this morning without contrast is most significant in that it shows fairly marked thickening of the colonic wall involving the entire left colon, particularly the descending colon and sigmoid. There remains no evidence of free air. There is some minimal free fluid. There are is no evidence of abscess. There is no evidence at this time of an intestinal obstruction. IMPRESSION: Patient's CT this morning shows significant thickening of the bowel wall of the descending and sigmoid colons in particular. There really is no strong evidence for obstruction on the current CT. She remains with some abdominal tenderness. The nasogastric (NG) tube has not had a significant quantity out. Overall her picture is looking more like some sort of colitis. PLAN: I will ask for a consultation from the hospitalist service and I spoke with Dr. Cecilia De La Rosa about this. She will remain on her antibiotics for now and I will for now continue her NG tube. She will remain on intravenous (IV) fluids. Laboratory studies will be obtained again in the morning. MTDD
--- NOTE | 2018-07-30 15:57 | IPN ---
DATE: 07/30/2018 HISTORY: Patient was admitted on the morning of 07/28/2018 with a several-day history of abdominal pain with some nausea and vomiting and diarrhea with abdominal pain. She had a markedly elevated white count on 07/28/2018. A repeat CT did not show any continued evidence of obstruction but did show marked thickening of the colonic wall from the splenic flexure distally. Today, she feels a little better. She has noted that there has been some recurrence of her diarrhea. She was seen by the hospitalist yesterday, who ordered some additional lab studies but recommended continuing the care in place at that time with the empiric antibiotics. VITAL SIGNS: The patient had a maximum temperature (Tmax) of 102.4 on the evening of 07/29/2018, but has been afebrile since. Her pulse has come down today into the 70s. Her blood pressure is good. INTAKE AND OUTPUT: The patient had 1100 mL of urine out yesterday. She had 450 mL noted out in the nasogastric (NG) tube overnight. She has had three bowel movements recorded with several voids that were not measured. PHYSICAL EXAMINATION: The patient reports she is feeling a little better. She is asking for something to drink today. Her NG tube remains in place at about 55 cm at the nose and has a minimal amount of bilious fluid in the tubing. Heart exam shows a regular rhythm and the lungs are clear. The abdomen is still somewhat distended and she has bowel sounds and the abdomen is soft with some mild tenderness still fairly centrally. Laboratory studies today include a CBC that shows her white count is down to 13,000 and her platelet count is 133 with a hemoglobin of 13, hematocrit of 38. Chemistry profile shows sodium of 141, potassium 3.4, chloride 109, CO2 of 24, BUN of 15, creatinine 1.1 and a glucose of 101. She had a lactic acid last evening ordered by Dr. De La Rosa that was only 2.0. She has a C-reactive protein this morning that is 29 and an ESR done at time of her CBC was also elevated at 49. A stool for occult blood was positive but her gastrointestinal infection panel was negative. She did have a CT scan of the chest obtained last evening ordered by Dr. De La Rosa and this was read by the radiologist as suggesting some moderate consolidation in the left lower lobe along with small areas of consolidation in the right lower lobe and lingula representing new findings and consistent with aspiration pneumonia. IMPRESSION: Clinically the patient appears somewhat improved. She is complaining of less abdominal discomfort. She has now had a return of some diarrhea but her tenderness seems less. Her white blood cell count has decreased significantly and her fever from yesterday has resolved and her pulse diminished. PLAN: Patient will be continued on her IV antibiotics. I think her overall picture is still most consistent with some sort of colitis though her gastrointestinal (GI) panel was negative. She has suggestion of some lung consolidation, which could suggest aspiration pneumonitis. I will take her NG tube out today and let her try some clear liquids. We will recheck her labs in the morning. PHILLIP
[2018-07-30 18:00] VITALS: BP 123/66
[2018-07-30] MEDS: PANTOPRAZOLE 40MG TAB (PROTONIX) PO SCH (21:39)
[2018-07-30] MEDS: QUEtiapine FUMARATE 200 MG TAB PO SCH (21:39)
[2018-07-30] MEDS: MIRTAZAPINE 15 MG TAB PO SCH (21:40)
[2018-07-30 22:00] VITALS: BP 94/60
[2018-07-31 02:00] VITALS: BP 128/67
[2018-07-31] MEDS: IPRATROPIUM 0.5MG/ALBUTEROL 2.5MG INH SOL UD 3ML (DUONEB)(J7620) NEB SCH ×4 (02:00→19:27)
[2018-07-31] MEDS: KETOROLAC 30 MG/ML VIAL (J1885) IV PRN ×3 (05:27→20:44)
[2018-07-31] MEDS: LEVOTHYROXINE 125MCG TABLET (0.125MG) PO SCH (05:27)
[2018-07-31] MEDS: PIPERACILLIN/TAZOBACTAM SOD 3.375 GM in D5W MINI-BAG PLUS 50 ML IV SCH ×4 (05:27→23:28)
[2018-07-31 06:00] VITALS: BP 123/91
[2018-07-31 06:49] LABS: BASO % 0.5 % (0.0-1.0); EOS # 0.2 10^3/uL (0.0-0.50); HEMATOCRIT 35.1 % (36.0-47.0); HEMOGLOBIN 11.5 g/dl (12.0-15.5); LYMPH # 1.2 10^3/uL (1.5-4.5); LYMPH % 14.6 % (24.0-44.0); MEAN CORPUSCULAR HEMOGLOBIN 30.3 pg (27.0-33.0); MEAN CORPUSCULAR HGB CONC 32.8 g/dl (32.0-36.5); MEAN CORPUSCULAR VOLUME 92.4 fl (80.0-96.0); MONO # 0.9 10^3/uL (0.0-0.8); MONO % 10.7 % (0.0-5.0); NEUTROPHILS # 5.8 10^3/uL (1.8-7.7); NEUTROPHILS % 71.7 % (36.0-66.0); PLATELET COUNT, AUTOMATED 131 10^3/uL (150-450); WHITE BLOOD COUNT 8.1 10^3/uL (4.0-10.0)
[2018-07-31] MEDS: clonazePAM 0.5 MG TAB PO PRN ×3 (06:57→23:28)
[2018-07-31 07:12] LABS: BILIRUBIN,TOTAL 0.6 MG/DL (0.2-1.0); CALCIUM LEVEL 7.8 MG/DL (8.8-10.2); CREATININE FOR GFR 1.05 MG/DL (0.55-1.30); GLOMERULAR FILTRATION RATE 56.9 (>45); POTASSIUM SERUM 3.3 MEQ/L (3.5-5.1); TOTAL PROTEIN 5.4 GM/DL (6.4-8.2)
[2018-07-31] MEDS: PANTOPRAZOLE 40MG TAB (PROTONIX) PO SCH ×2 (08:48→20:44)
[2018-07-31] MEDS: LISINOPRIL 10 MG TAB PO SCH (08:51)
[2018-07-31 10:00] VITALS: BP 135/78
[2018-07-31] MEDS: TAMSULOSIN 0.4 MG CAP PO SCH (11:22)
[2018-07-31 14:00] VITALS: BP 104/59
[2018-07-31] MEDS: LR 1,000 ML IV SCH (15:11)
[2018-07-31 18:00] VITALS: BP 140/74
[2018-07-31] MEDS: ONDANSETRON 4MG/2ML VIAL (J2405) IV PRN (19:32)
[2018-07-31 20:00] VITALS: BP 132/63
[2018-07-31] MEDS: QUEtiapine FUMARATE 200 MG TAB PO SCH (20:44)
[2018-07-31] MEDS: MIRTAZAPINE 15 MG TAB PO SCH (20:44)
[2018-08-01] MEDS: IPRATROPIUM 0.5MG/ALBUTEROL 2.5MG INH SOL UD 3ML (DUONEB)(J7620) NEB SCH ×4 (02:42→19:35)
[2018-08-01] MEDS: PIPERACILLIN/TAZOBACTAM SOD 3.375 GM in D5W MINI-BAG PLUS 50 ML IV SCH ×4 (04:16→23:23)
[2018-08-01] MEDS: KETOROLAC 30 MG/ML VIAL (J1885) IV PRN ×3 (04:16→17:56)
[2018-08-01] MEDS: LEVOTHYROXINE 125MCG TABLET (0.125MG) PO SCH (05:33)
[2018-08-01] MEDS: clonazePAM 0.5 MG TAB PO PRN ×2 (05:33→21:03)
[2018-08-01 06:00] VITALS: BP 128/74
[2018-08-01] MEDS: LISINOPRIL 10 MG TAB PO SCH (09:25)
[2018-08-01] MEDS: PANTOPRAZOLE 40MG TAB (PROTONIX) PO SCH ×2 (09:26→21:02)
[2018-08-01 10:00] VITALS: BP 132/70
[2018-08-01] MEDS: ONDANSETRON 4MG/2ML VIAL (J2405) IV PRN (10:42)
[2018-08-01] MEDS: TAMSULOSIN 0.4 MG CAP PO SCH (12:40)
[2018-08-01 14:00] VITALS: BP 154/90
--- NOTE | 2018-08-01 14:09 | IPNPDOC ---
Date Seen The patient was seen on 08/01/18. Progress Note SUBJECTIVE: Patient reports to me this morning she feels better her abdominal pain has resolved. She doesn't she wants to go home. She also tells me that she did vomit last night however Objective: Physical exam Vital signs please see below General: Obese female sitting in bed she does not appear to be in any acute distress HEENT: She has an NG tube in place difficult to assess for any elevation and CVP cranial nerves appear grossly intact CARDIOVASCULAR: S1-S2 regular. RESPIRATORY: Fairly Clear to auscultation bilaterally may be some diminished breath sounds at the bases. ABDOMINAL: Grossly obese no tenderness to deep palpation EXTREMITIES: No clubbing cyanosis or edema LABORATORY DATA, IMAGING STUDIES, MICROBIOLOGY: Please see below. ASSESSMENT AND PLAN: This is a 62-year-old female with abdominal pain and fever. PROBLEMS: 1. Abdominal pain: She may have presented with small bowel obstruction versus c olitis it does appear to be resolving, it is somewhat concerning that she did have some vomiting yesterday we'll defer to general surgery, her pain does appear to be improved now she is certainly looking much better 2. Fever: Possibly related to infectious colitis however suspect is more likely related to aspiration event during her retching. I would have her complete a seven-day course of antibiotics could be transitioned to by mouth levofloxacin 500 mg daily when able that should nicely cover her for any colitis as well, otherwise upon discharge she can resume her home medications. Please not hesitate to call with any specific questions thank you VS, I&O, 24H, Fishbone Vital Signs/I&O Vital Signs Date Time Temp Pulse Resp B/P (MAP) Pulse Ox O2 Delivery O2 Flow Rate FiO2 08/01/18 10:00 97.9 72 19 132/70 (90) 95 07/28/18 12:26 Room Air I&O- Last 24 Hours up to 6 AM 08/01/18 06:00 Intake Total 2710 ml Output Total 1700 ml Balance 1010 ml Laboratory Data Microbiology Microbiology 07/29/18 Blood Culture - Preliminary, Resulted No Growth after 48 hours. All Specime... 07/29/18 Blood Culture - Preliminary, Resulted No Growth after 48 hours. All Specime... 07/30/18 Stool Occult Blood (RHIANNA) - Final, Complete 07/30/18 Gastrointestinal Tract Panel (PCR) - Final, Complete AMIRA LOCKHART MD Aug 01, 2018 14:09
[2018-08-01] MEDS: MORPHINE 4 MG/ML 1ML VIAL/SYRINGE (J2270) IV PRN (14:19)
--- NOTE | 2018-08-01 14:58 | IPN ---
DATE: 08/01/2018 HISTORY: The patient was started back on regular food yesterday after tolerating clear liquids well. Yesterday evening she apparently had some nausea and vomiting after trying a cheeseburger for dinner. Since then she has been a little more cautious with her diet. She reports that she had a light breakfast this morning and has not had any further emesis. She believes she is coughing up some phlegm and sometimes feels as if she is choking on some phlegm. She does report that she is passing flatus and having some diarrhea. She is having some mild lower abdominal discomfort. Primarily, she is having some back and lower extremity pain, which is chronic for her and she is seen in the pain clinic for this. Vital signs: Show that she has been afebrile since yesterday. Her pulse is in the 60s to 70s generally. Her blood pressure is good and her pulse oximetry is normal. Intake and output shows that yesterday she had 1860 oral in with 1400 urine output. She has had 700 mL of urine output recorded today. PHYSICAL EXAMINATION: Patient is alert and oriented. The abdomen appears quite protuberant. Heart exam shows a regular rhythm of about 70. The lungs sound clear. The abdomen is quite protuberant. She does have bowel sounds present. There is some tympany to percussion in the upper mid and the left upper quadrants of the abdomen. The abdomen is soft. She has some mild tenderness to fairly deep palpation low in the mid abdomen and left lower quadrant. She has no new labs today. IMPRESSION: The patient remains somewhat distended but is still having flatus and reports some diarrhea. She has been tolerating a diet, but she did have one episode of emesis yesterday evening. PLAN: I will obtain a flat and upright abdominal x-ray and chest x-ray today to assess her bowel status. She may be able to go home later today but it may be prudent to continue to observe her further. It is possible that she has a persistent partial obstruction that was less evident when she remained on a clear liquid diet. PHILLIP
[2018-08-01 18:00] VITALS: BP 140/82
[2018-08-01] MEDS: ACETAMINOPHEN TAB 650MG DOSE (2X325MG) PO PRN (18:01)
[2018-08-01 20:00] VITALS: BP 143/70
[2018-08-01] MEDS: QUEtiapine FUMARATE 200 MG TAB PO SCH (21:02)
[2018-08-01] MEDS: MIRTAZAPINE 15 MG TAB PO SCH (21:02)
[2018-08-02] MEDS: IPRATROPIUM 0.5MG/ALBUTEROL 2.5MG INH SOL UD 3ML (DUONEB)(J7620) NEB SCH ×4 (02:00→21:15)
[2018-08-02] MEDS: ACETAMINOPHEN TAB 650MG DOSE (2X325MG) PO PRN ×2 (03:31→09:12)
[2018-08-02] MEDS: KETOROLAC 30 MG/ML VIAL (J1885) IV PRN (03:31)
[2018-08-02] MEDS: MORPHINE 4 MG/ML 1ML VIAL/SYRINGE (J2270) IV PRN ×2 (05:05→21:24)
[2018-08-02] MEDS: LEVOTHYROXINE 125MCG TABLET (0.125MG) PO SCH (05:05)
[2018-08-02] MEDS: PIPERACILLIN/TAZOBACTAM SOD 3.375 GM in D5W MINI-BAG PLUS 50 ML IV SCH ×2 (05:06→11:35)
[2018-08-02 06:00] VITALS: BP 136/73
[2018-08-02 07:43] LABS: HEMATOCRIT 34.9 % (36.0-47.0); HEMOGLOBIN 11.3 g/dl (12.0-15.5); MEAN CORPUSCULAR HEMOGLOBIN 30.5 pg (27.0-33.0); MEAN CORPUSCULAR HGB CONC 32.4 g/dl (32.0-36.5); MEAN CORPUSCULAR VOLUME 94.1 fl (80.0-96.0); PLATELET COUNT, AUTOMATED 177 10^3/uL (150-450); RED BLOOD COUNT 3.71 10^6/uL (4.00-5.40); WHITE BLOOD COUNT 6.8 10^3/uL (4.0-10.0)
[2018-08-02 08:07] LABS: CALCIUM LEVEL 7.7 MG/DL (8.8-10.2); CREATININE FOR GFR 1.21 MG/DL (0.55-1.30); GLOMERULAR FILTRATION RATE 48.3 (>45); POTASSIUM SERUM 2.9 MEQ/L (3.5-5.1)
[2018-08-02 08:21] LABS: MAGNESIUM LEVEL 1.7 MG/DL (1.8-2.4)
--- NOTE | 2018-08-02 08:55 | REP ---
ABDOMINAL SERIES: Supine and erect views of the abdomen demonstrate no free air. Compared to the scanogram of the abdomen for CT 07/29/2018 there is increased air scattered throughout the GI tract including small and large bowel loops. Several mildly dilated small bowel loops are seen throughout the abdomen. Findings may represent a mild generalized ileus. There is still diffuse mucosal thickening of the left colon compatible with colitis. Metallic clips are seen in the right upper quadrant. There are tiny phleboliths in the pelvis. An accompanying view of the chest demonstrates some infiltrate in the left retrocardiac region with no other acute change compared to prior chest radiograph of 06/11/2018. IMPRESSION: No free air. There is increased air scattered throughout the GI tract involving small and large bowel loops. There are multiple mildly dilated small bowel loop throughout the abdomen which may represent a generalized ileus. Mild air is seen scattered throughout the colon with persistent mucosal thickening diffusely of the left colon compatible with colitis. Left retrocardiac infiltrate. Electronically Signed by Jamal Montero MD 08/02/2018 10:35 A
[2018-08-02] MEDS: clonazePAM 0.5 MG TAB PO PRN ×2 (09:12→21:23)
[2018-08-02] MEDS: PANTOPRAZOLE 40MG TAB (PROTONIX) PO SCH ×2 (09:12→21:22)
[2018-08-02] MEDS: LISINOPRIL 10 MG TAB PO SCH (09:13)
[2018-08-02] MEDS: POTASSIUM CHLORIDE 10 MEQ SR TABLET PO SCH ×2 (09:13→21:22)
[2018-08-02 10:00] VITALS: BP 152/80
[2018-08-02] MEDS: TAMSULOSIN 0.4 MG CAP PO SCH (11:43)
[2018-08-02] MEDS ORDERED: LevoFLOXacin IV 500 MG in APPROPRIATE DILUENT 1 EA IV ONE (13:00)
[2018-08-02] MEDS ORDERED: PILL CRUSHER/CUTTER 1 EACH XX PRN (13:00)
[2018-08-02] MEDS ORDERED: MAG SULF 1GM/100ML (MAG RUN) 1 GM in APPROPRIATE DILUENT 1 EA IV ONE (13:45)
[2018-08-02] MEDS: oxyCODONE 5MG TAB PO PRN ×2 (13:55→23:05)
[2018-08-02 14:00] VITALS: BP 146/80
[2018-08-02 18:00] VITALS: BP 138/80
[2018-08-02] MEDS: MIRTAZAPINE 15 MG TAB PO SCH (21:22)
[2018-08-02] MEDS: ONDANSETRON 4MG/2ML VIAL (J2405) IV PRN (21:23)
[2018-08-02] MEDS: QUEtiapine FUMARATE 200 MG TAB PO SCH (21:23)
[2018-08-02 22:00] VITALS: BP 142/79
[2018-08-03 02:00] VITALS: BP 127/63
[2018-08-03] MEDS: IPRATROPIUM 0.5MG/ALBUTEROL 2.5MG INH SOL UD 3ML (DUONEB)(J7620) NEB SCH ×5 (02:00→20:00)
[2018-08-03] MEDS: ONDANSETRON 4MG/2ML VIAL (J2405) IV PRN ×3 (04:25→20:48)
[2018-08-03] MEDS: MORPHINE 4 MG/ML 1ML VIAL/SYRINGE (J2270) IV PRN ×2 (04:26→17:19)
--- NOTE | 2018-08-03 05:16 | IPN ---
DATE: 08/02/2018 HISTORY: The patient was admitted on July 28, 2018 with some abdominal pain and a CT scan suggesting a possible small bowel obstruction. This seemed to resolve and she had issues with some thickening in the descending and sigmoid colons more consistent with colitis. Subsequent chest CT suggested infiltrates in the lower lobes suggesting aspiration pneumonitis. She has improved markedly as regards her elevated white count which is now back to normal. She was started back on a regular diet two days ago and since then has had some recurrence of abdominal distension with some intermittent nausea and several episodes of small amounts of emesis. She reports persistent abdominal bloating and discomfort. She is having some flatus and still reports small amounts of diarrhea. VITAL SIGNS: Show that she has been afebrile over the past 24 hours. Pulse and blood pressure are stable and normal. INTAKE AND OUTPUT: Shows that yesterday she had 2600 in with 850 mL of urine output and five recorded small bowel movements. The patient is lying quietly on the hospital bed. She is alert and oriented. She does report that she is uncomfortable and has had some recurring nausea earlier today. Her abdomen does appear quite distended. Physical exam confirms abdominal distension which is mildly firm. She does have a few bowel sounds present. LABORATORIES: Laboratory studies show a white count of 7 with a hemoglobin of 11, hematocrit 35 and a platelet count of 177,000. Chemistry profile shows that her potassium is decreased to 2.9 but her other electrolytes are normal. IMPRESSION: The patient has had a recurrence of abdominal distension with pain and some nausea and occasional vomiting since resuming a regular diet two days ago. PLAN: I will put the patient back on a clear liquid diet. We will obtain a small-bowel follow-through study tomorrow. Her history is very suggestive of a high-grade partial small-bowel obstruction. She actually reports that she had some issues with her abdomen for as long as several weeks before admission. I will convert her to Levaquin for antibiotic coverage from her Zosyn. We will see what the small bowel series shows. PHILLIP
[2018-08-03] MEDS: LEVOTHYROXINE 125MCG TABLET (0.125MG) PO SCH (05:41)
[2018-08-03] MEDS: clonazePAM 0.5 MG TAB PO PRN ×3 (05:41→20:50)
[2018-08-03] MEDS: oxyCODONE 5MG TAB PO PRN ×3 (05:42→18:58)
[2018-08-03 06:00] VITALS: BP 142/75
[2018-08-03 07:38] LABS: HEMATOCRIT 36.5 % (36.0-47.0); HEMOGLOBIN 11.8 g/dl (12.0-15.5); MEAN CORPUSCULAR HEMOGLOBIN 30.4 pg (27.0-33.0); MEAN CORPUSCULAR HGB CONC 32.3 g/dl (32.0-36.5); MEAN CORPUSCULAR VOLUME 94.1 fl (80.0-96.0); PLATELET COUNT, AUTOMATED 212 10^3/uL (150-450); RED BLOOD COUNT 3.88 10^6/uL (4.00-5.40); WHITE BLOOD COUNT 5.5 10^3/uL (4.0-10.0)
[2018-08-03 08:08] LABS: BLOOD UREA NITROGEN 4 MG/DL (7-18); CALCIUM LEVEL 7.9 MG/DL (8.8-10.2); CARBON DIOXIDE LEVEL 24 MEQ/L (21-32); CHLORIDE LEVEL 111 MEQ/L (98-107); CREATININE FOR GFR 0.97 MG/DL (0.55-1.30); GLOMERULAR FILTRATION RATE > 60.0 (>45); GLUCOSE, FASTING 83 MG/DL (70-100); MAGNESIUM LEVEL 1.9 MG/DL (1.8-2.4); POTASSIUM SERUM 3.7 MEQ/L (3.5-5.1); SODIUM LEVEL 143 MEQ/L (136-145)
[2018-08-03] MEDS ORDERED: E-Z-PAQUE 96% w/w SUSP 176GM BTL As Ordered ONE (09:26)
[2018-08-03 14:40] VITALS: BP 175/82
[2018-08-03] MEDS: TAMSULOSIN 0.4 MG CAP PO SCH (14:40)
[2018-08-03] MEDS: LISINOPRIL 10 MG TAB PO SCH (14:42)
[2018-08-03] MEDS: PANTOPRAZOLE 40MG TAB (PROTONIX) PO SCH ×2 (14:42→20:48)
[2018-08-03] MEDS: POTASSIUM CHLORIDE 10 MEQ SR TABLET PO SCH (14:43)
[2018-08-03 16:04] VITALS: BP 131/80
--- NOTE | 2018-08-03 16:18 | REP ---
Small bowel follow-through The procedure was performed under the direct supervision of Dr. King. The images were reviewed with Dr. King. The security officer film shows no organomegaly or pathological masses. The intestinal gas pattern is nonspecific. There are surgical clips noted in the right upper quadrant. Liquid barium was administered and the barium column was followed through the small bowel to the level of the terminal ileum. Small bowel transit time is approximately 4 hours and 30 minutes . During fluoroscopy gentle palpation shows all loops are freely movable and pliable. The patient has a mobile cecum as it is positioned in the right upper quadrant. There is a small duodenal diverticulum. There are no fixed or angulated loops. The small bowel mucosal pattern is normal in course and caliber. There is no transition to suggest a partial small bowel obstruction. Spot filming of the terminal ileum shows it to be unremarkable. Impression: The cecum is mobile as it lies in the right upper quadrant. There is a small duodenal diverticulum. Otherwise, unremarkable small bowel follow-through examination within normal limits. 1.6 minutes of fluoro time was utilized for this procedure. Reviewed by HILDA Charles 08/03/2018 03:27 P Electronically Signed by Franklyn King MD 08/03/2018 04:10 P
[2018-08-03 20:00] VITALS: BP 152/72
--- NOTE | 2018-08-03 20:03 | IPN ---
DATE: 08/03/2018 HISTORY: The patient was admitted with abdominal pain and some nausea, vomiting and diarrhea. Initially with nasogastric (NG) decompression, her pain diminished and her abdomen decompressed. She was then advanced to some clear liquids which she tolerated and then to a full regular diet which led to some recurrence of abdominal distension. She has been having flatus but complains of occasional nausea and infrequent vomiting. She had a small bowel follow-through study done today to assess for any evidence of persistent high-grade small bowel obstruction. The small bowel follow-through study took approximately 4-1/2 hours to see contrast reach the colon, but the interpretation was that there was no fixed narrowing to suggest a persistent obstruction. Vital signs: Show that the patient has been afebrile with a pulse in the 70s to low 80s and a good blood pressure. Intake and output shows that she took adequate intake yesterday. She had a urine output of 1800 mL with three bowel movements recorded. PHYSICAL EXAMINATION: The patient is lying quietly in the hospital bed. She appears fairly comfortable. Abdomen remains somewhat distended but the abdomen is soft. There are no areas of discrete tenderness, though she has some mild discomfort with palpation of the abdomen. Laboratory studies show a white count of 5.5, hemoglobin 12, hematocrit of 36 and a platelet count of 212,000. Her chemistry profile shows her potassium up to normal at 3.7. Otherwise this is unremarkable. IMPRESSION: Patient's small bowel follow-through study shows no definite obstruction, though the transit time was somewhat prolonged. PLAN: The patient will be placed back on a regular diet. I counseled the patient to avoid stringy foods such as green beans or cabbage. We will see how she does with her regular diet and if she tolerates this well, she can be discharged in the morning. PHILLIP
[2018-08-03] MEDS: QUEtiapine FUMARATE 200 MG TAB PO SCH (20:48)
[2018-08-03] MEDS: MIRTAZAPINE 15 MG TAB PO SCH (20:48)
[2018-08-04] MEDS: ONDANSETRON 4MG/2ML VIAL (J2405) IV PRN ×3 (05:00→17:00)
[2018-08-04] MEDS: oxyCODONE 5MG TAB PO PRN ×3 (05:00→17:04)
[2018-08-04] MEDS: LEVOTHYROXINE 125MCG TABLET (0.125MG) PO SCH (05:00)
[2018-08-04 06:00] VITALS: BP 134/72
[2018-08-04] MEDS: PANTOPRAZOLE 40MG TAB (PROTONIX) PO SCH ×2 (08:22→21:34)
[2018-08-04] MEDS: LISINOPRIL 10 MG TAB PO SCH (08:22)
[2018-08-04] MEDS: IPRATROPIUM 0.5MG/ALBUTEROL 2.5MG INH SOL UD 3ML (DUONEB)(J7620) NEB SCH ×4 (08:40→21:33)
[2018-08-04 09:04] LABS: BASO # 0.1 10^3/uL (0.0-0.2); EOS # 0.1 10^3/uL (0.0-0.50); EOS % 2.4 % (0.0-3.0); HEMATOCRIT 40.3 % (36.0-47.0); HEMOGLOBIN 12.8 g/dl (12.0-15.5); LYMPH # 1.3 10^3/uL (1.5-4.5); LYMPH % 22.6 % (24.0-44.0); MEAN CORPUSCULAR HEMOGLOBIN 30.2 pg (27.0-33.0); MEAN CORPUSCULAR HGB CONC 31.8 g/dl (32.0-36.5); MONO # 0.8 10^3/uL (0.0-0.8); MONO % 13.8 % (0.0-5.0); NEUTROPHILS # 3.3 10^3/uL (1.8-7.7); NEUTROPHILS % 56.9 % (36.0-66.0); PLATELET COUNT, AUTOMATED 264 10^3/uL (150-450); RED BLOOD COUNT 4.24 10^6/uL (4.00-5.40); WHITE BLOOD COUNT 5.8 10^3/uL (4.0-10.0)
[2018-08-04 09:23] LABS: CALCIUM LEVEL 8.1 MG/DL (8.8-10.2); CREATININE FOR GFR 1.06 MG/DL (0.55-1.30); GLOMERULAR FILTRATION RATE 56.3 (>45); MAGNESIUM LEVEL 1.9 MG/DL (1.8-2.4); POTASSIUM SERUM 4.1 MEQ/L (3.5-5.1)
[2018-08-04 10:00] VITALS: BP 121/65
[2018-08-04] MEDS: TAMSULOSIN 0.4 MG CAP PO SCH (11:02)
[2018-08-04] MEDS: clonazePAM 0.5 MG TAB PO PRN ×2 (11:02→17:00)
[2018-08-04 14:15] VITALS: BP 148/79
[2018-08-04] MEDS: MORPHINE 4 MG/ML 1ML VIAL/SYRINGE (J2270) IV PRN (21:34)
[2018-08-04] MEDS: MIRTAZAPINE 15 MG TAB PO SCH (21:34)
[2018-08-04] MEDS: QUEtiapine FUMARATE 200 MG TAB PO SCH (21:34)
[2018-08-04 22:00] VITALS: BP 150/81
[2018-08-05] MEDS: IPRATROPIUM 0.5MG/ALBUTEROL 2.5MG INH SOL UD 3ML (DUONEB)(J7620) NEB SCH ×4 (02:00→19:44)
[2018-08-05] MEDS: oxyCODONE 5MG TAB PO PRN ×3 (05:50→17:56)
[2018-08-05] MEDS: LEVOTHYROXINE 125MCG TABLET (0.125MG) PO SCH (05:50)
[2018-08-05 06:00] VITALS: BP 123/63
[2018-08-05] MEDS: PANTOPRAZOLE 40MG TAB (PROTONIX) PO SCH ×2 (08:14→20:40)
[2018-08-05] MEDS: LISINOPRIL 10 MG TAB PO SCH (08:14)
[2018-08-05] MEDS: clonazePAM 0.5 MG TAB PO PRN ×2 (08:36→16:22)
[2018-08-05] MEDS: ONDANSETRON 4MG/2ML VIAL (J2405) IV PRN ×2 (08:56→20:39)
[2018-08-05] MEDS: MORPHINE 4 MG/ML 1ML VIAL/SYRINGE (J2270) IV PRN ×3 (08:56→20:40)
[2018-08-05 10:00] VITALS: BP 125/72
[2018-08-05] MEDS: TAMSULOSIN 0.4 MG CAP PO SCH (11:53)
[2018-08-05 14:02] VITALS: BP 122/72
[2018-08-05 17:46] VITALS: BP 131/86
[2018-08-05 20:00] VITALS: BP 147/86
[2018-08-05] MEDS: MIRTAZAPINE 15 MG TAB PO SCH (20:40)
[2018-08-05] MEDS: QUEtiapine FUMARATE 200 MG TAB PO SCH (20:40)
[2018-08-06] VITALS (8 sets, daily range): BP systolic 120–138; BP diastolic 65–83
[2018-08-06] MEDS: IPRATROPIUM 0.5MG/ALBUTEROL 2.5MG INH SOL UD 3ML (DUONEB)(J7620) NEB SCH ×4 (02:00→19:47)
[2018-08-06] MEDS: LEVOTHYROXINE 125MCG TABLET (0.125MG) PO SCH (05:46)
[2018-08-06] MEDS: oxyCODONE 5MG TAB PO PRN ×2 (05:46→16:48)
[2018-08-06] MEDS ORDERED: ONDANSETRON 4MG/2ML VIAL (J2405) As Ordered ONE (07:01)
[2018-08-06] MEDS ORDERED: LIDOCAINE 2% INJ 100 MG/5 ML SDV (FOR ANES.) As Ordered ONE (07:01)
[2018-08-06] MEDS ORDERED: ROCURONIUM BROMIDE 50 MG/5 ML VIAL As Ordered ONE ×2 (07:01→09:04)
[2018-08-06] MEDS ORDERED: PROPOFOL 200 MG/20 ML VIAL As Ordered ONE (07:01)
[2018-08-06] MEDS ORDERED: SUGAMMADEX SODIUM 500 MG/5 ML VIAL (BRIDION) As Ordered ONE (07:03)
[2018-08-06] MEDS ORDERED: fentaNYL 100 MCG/2 ML INJECTION (J3010) As Ordered ONE (07:03)
[2018-08-06] MEDS ORDERED: dexameTHASONE 4 MG/ML 1ML VIAL (J1100) As Ordered ONE (07:03)
[2018-08-06] MEDS ORDERED: MIDAZOLAM INJ 2 MG/2 ML VIAL (J2250) As Ordered ONE (07:04)
[2018-08-06] MEDS ORDERED: KETOROLAC 60 MG/2 ML VIAL (J1885) As Ordered ONE (07:04)
[2018-08-06] MEDS ORDERED: KETAMINE HCL 200 MG/20 ML VIAL As Ordered ONE (07:06)
[2018-08-06] MEDS ORDERED: BUPIVACAINE/EPIN 0.25% 30 ML VIAL As Ordered ONE (07:09)
[2018-08-06] MEDS ORDERED: cefoTEtan INJ 2GM VIAL (S0074 PER 500MG) As Ordered ONE (07:21)
[2018-08-06 07:36] LABS: BASO # 0.1 10^3/uL (0.0-0.2); EOS # 0.2 10^3/uL (0.0-0.50); EOS % 2.4 % (0.0-3.0); HEMOGLOBIN 12.1 g/dl (12.0-15.5); LYMPH # 1.3 10^3/uL (1.5-4.5); LYMPH % 19.2 % (24.0-44.0); MEAN CORPUSCULAR HEMOGLOBIN 30.2 pg (27.0-33.0); MEAN CORPUSCULAR HGB CONC 31.8 g/dl (32.0-36.5); MEAN CORPUSCULAR VOLUME 94.8 fl (80.0-96.0); MONO # 0.7 10^3/uL (0.0-0.8); MONO % 10.3 % (0.0-5.0); NEUTROPHILS # 4.3 10^3/uL (1.8-7.7); NEUTROPHILS % 64.7 % (36.0-66.0); PLATELET COUNT, AUTOMATED 309 10^3/uL (150-450); RED BLOOD COUNT 4.01 10^6/uL (4.00-5.40); WHITE BLOOD COUNT 6.7 10^3/uL (4.0-10.0)
[2018-08-06] MEDS ORDERED: ALBUTEROL SULFATE 2.5 MG/0.5 ML INH NEB SOLN As Ordered ONE (07:36)
[2018-08-06 07:56] LABS: BLOOD UREA NITROGEN 3 MG/DL (7-18); CALCIUM LEVEL 7.6 MG/DL (8.8-10.2); CARBON DIOXIDE LEVEL 23 MEQ/L (21-32); CHLORIDE LEVEL 110 MEQ/L (98-107); GLOMERULAR FILTRATION RATE > 60.0 (>45); GLUCOSE, FASTING 93 MG/DL (70-100); MAGNESIUM LEVEL 1.9 MG/DL (1.8-2.4); POTASSIUM SERUM 3.6 MEQ/L (3.5-5.1); SODIUM LEVEL 143 MEQ/L (136-145)
[2018-08-06] MEDS ORDERED: ALBUTEROL SULFATE 2.5 MG/0.5 ML INH NEB SOLN INH ONE (08:00)
[2018-08-06] MEDS ORDERED: ALBUTEROL 6.7GM INHALER **FOR ANES. CART/OMNICELL ONLY As Ordered ONE (09:46)
[2018-08-06] MEDS ORDERED: oxyCODONE 5MG TAB As Ordered ONE (10:45)
[2018-08-06] MEDS ORDERED: PILL CRUSHER/CUTTER 1 EACH XX ONE (10:49)
[2018-08-06] MEDS ORDERED: MORPHINE 10 MG/ML 1ML VIAL (J2270) IV PRN (11:00)
[2018-08-06] MEDS ORDERED: ONDANSETRON 4MG/2ML VIAL (J2405) IV PRN (11:00)
[2018-08-06] MEDS ORDERED: oxyCODONE 5MG TAB PO PRN (11:00)
[2018-08-06] MEDS ORDERED: LR 1,000 ML IV SCH (11:00)
[2018-08-06] MEDS ORDERED: fentaNYL 100 MCG/2 ML INJECTION (J3010) IV PRN (11:00)
--- NOTE | 2018-08-06 11:00 | IPN ---
DATE OF SERVICE: 08/05/2018 HISTORY: The patient was admitted on 07/28/2018 with evidence for a possible partial small-bowel obstruction. She improved and tolerated liquids well. She was advanced to a regular diet with recurrence of some of her symptoms. She was converted back to a liquid diet, and a small bowel followthrough study done on or about 08/03/2018 showed contrast flowing through to the colon, though it took approximately 4-1/2 hours. There appeared to be still a few loops of small bowel that were somewhat distended. She was advanced back to a regular diet but has had persistent abdominal distention with discomfort. VITAL SIGNS: The patient has been afebrile for the past 24 hours. Her pulse has generally been in the 80s to low 90s. Her blood pressure is good. INTAKE AND OUTPUT: Shows that yesterday she had 1200 mL in with 900 recorded out. She had one bowel movement recorded. PHYSICAL EXAMINATION: This morning, the patient reports still feeling quite uncomfortable. She is quite distended with some lower abdominal pain. Examination shows that her heart examination reveals a regular rate and rhythm. The lungs show clear breath sounds. The abdomen is quite distended, and she has some mild tenderness across the lower abdomen. IMPRESSION: The patient has persistent signs of intestinal obstruction. She has been putting out small amounts of stool and will pass some flatus on occasion but remains quite distended. I think this represents a persistent high-grade small bowel obstruction. The patient and I discussed options of continued close observation, possibly with a low-residue diet versus surgery. The patient wishes to proceed with surgical intervention, and this will be scheduled for 08/06/2018. PHILLIP
--- NOTE | 2018-08-06 11:07 | IPN ---
DATE: 08/04/2018 HISTORY: The patient was admitted with abdominal pain and some nausea, vomiting and diarrhea. After several days of NG decompression, she appeared to improve. She was gradually advanced to a regular diet, but she then had some increased abdominal distention. She continued to have small amounts of loose stool. A small bowel follow-through study was done on August 03 which was interpreted by the radiologist as showing no evidence of a persistent bowel obstruction. However, I note that it took four and a half hours for the contrast to reach the colon which is significantly delayed. Following this, she was advanced back to a regular diet. She has remained quite distended with some lower abdominal pain. The patient and I had discussed possible discharge for 08/04/2018. However, she reports that she has had a recurrence of some discomfort and does not feel up to going home. Vital signs show that the patient has been afebrile over the past 24 hours. Her pulse is in the 80s. Blood pressure is good and her room air oxygen saturation is normal. Intake and output shows that yesterday she had 480 recorded in with 950 out. PHYSICAL EXAMINATION: The patient is alert and seems oriented. She appears perhaps mildly uncomfortable. The abdomen is quite distended. She does have some bowel sounds present. There is tympany to percussion in the mid abdomen. LABORATORY STUDIES: Show a white count of 6 with a hemoglobin of 13, hematocrit of 40 and a platelet count of 264,000. Differential count shows 57% neutrophils, 23% lymphocytes and 14% monocytes. Chemistry profile shows normal electrolytes with a BUN of 4, creatinine 1.0 and a glucose of 96. IMPRESSION: The patient remains distended. She is complaining of some lower abdominal discomfort, though not as bad as it had been originally. PLAN: The patient will be continued on her regular diet. We will see how she feels tomorrow. She may be ready for discharge if she tolerates her diet well. [facility]
[2018-08-06] MEDS: LISINOPRIL 10 MG TAB PO SCH (13:04)
[2018-08-06] MEDS: PANTOPRAZOLE 40MG TAB (PROTONIX) PO SCH ×2 (13:04→20:52)
[2018-08-06] MEDS: TAMSULOSIN 0.4 MG CAP PO SCH (13:04)
[2018-08-06] MEDS: clonazePAM 0.5 MG TAB PO PRN (14:55)
--- NOTE | 2018-08-06 19:32 | ECGEPIP ---
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
[2018-08-06] MEDS: MORPHINE 4 MG/ML 1ML VIAL/SYRINGE (J2270) IV PRN (20:51)
[2018-08-06] MEDS: MIRTAZAPINE 15 MG TAB PO SCH (20:52)
[2018-08-06] MEDS: ONDANSETRON 4MG/2ML VIAL (J2405) IV PRN (20:52)
[2018-08-06] MEDS: QUEtiapine FUMARATE 200 MG TAB PO SCH (20:53)
[2018-08-07] VITALS: BP 108/55
[2018-08-07] MEDS: IPRATROPIUM 0.5MG/ALBUTEROL 2.5MG INH SOL UD 3ML (DUONEB)(J7620) NEB SCH ×4 (02:00→19:36)
[2018-08-07 04:00] VITALS: BP 137/67
[2018-08-07] MEDS: oxyCODONE 5MG TAB PO PRN ×3 (05:29→18:00)
[2018-08-07] MEDS: LEVOTHYROXINE 125MCG TABLET (0.125MG) PO SCH (05:29)
[2018-08-07] MEDS: ONDANSETRON 4MG/2ML VIAL (J2405) IV PRN ×3 (05:37→17:59)
[2018-08-07 08:00] VITALS: BP 130/79
[2018-08-07] MEDS: ADVAIR HFA 115/21MCG INHALER INH SCH ×3 (08:00→19:36)
[2018-08-07] MEDS: MORPHINE 4 MG/ML 1ML VIAL/SYRINGE (J2270) IV PRN (08:45)
[2018-08-07] MEDS: PANTOPRAZOLE 40MG TAB (PROTONIX) PO SCH ×2 (08:45→20:58)
[2018-08-07 08:46] LABS: BASO % 0.4 % (0.0-1.0); EOS # 0.2 10^3/uL (0.0-0.50); EOS % 1.5 % (0.0-3.0); HEMATOCRIT 37.5 % (36.0-47.0); HEMOGLOBIN 11.8 g/dl (12.0-15.5); LYMPH # 1.6 10^3/uL (1.5-4.5); LYMPH % 15.3 % (24.0-44.0); MEAN CORPUSCULAR HEMOGLOBIN 30.3 pg (27.0-33.0); MEAN CORPUSCULAR HGB CONC 31.5 g/dl (32.0-36.5); MEAN CORPUSCULAR VOLUME 96.2 fl (80.0-96.0); MONO # 0.8 10^3/uL (0.0-0.8); NEUTROPHILS % 74.6 % (36.0-66.0); PLATELET COUNT, AUTOMATED 345 10^3/uL (150-450); WHITE BLOOD COUNT 10.7 10^3/uL (4.0-10.0)
[2018-08-07] MEDS: LISINOPRIL 10 MG TAB PO SCH (08:46)
[2018-08-07 09:28] LABS: ALBUMIN 2.2 GM/DL (3.2-5.2); BILIRUBIN,TOTAL 0.2 MG/DL (0.2-1.0); CALCIUM LEVEL 7.4 MG/DL (8.8-10.2); CREATININE FOR GFR 1.2 MG/DL (0.55-1.30); GLOMERULAR FILTRATION RATE 48.8 (>45); MAGNESIUM LEVEL 1.8 MG/DL (1.8-2.4); POTASSIUM SERUM 3.7 MEQ/L (3.5-5.1); TOTAL PROTEIN 5.3 GM/DL (6.4-8.2)
[2018-08-07] MEDS ORDERED: IPRATROPIUM 0.5MG/ALBUTEROL 2.5MG INH SOL UD 3ML (DUONEB)(J7620) NEB PRN (09:30)
[2018-08-07] MEDS: TAMSULOSIN 0.4 MG CAP PO SCH (11:53)
[2018-08-07 14:00] VITALS: BP 131/73
[2018-08-07 15:11] VITALS: BP 143/83
--- NOTE | 2018-08-07 15:30 | IPNPDOC ---
Text Note Date of Service The patient was seen on 08/07/18. NOTE Subjective: Patient was seen and examined at the bedside. , Currently patient denies any difficulty breathing. Denies any cough. Does report some wheezing. Denies vomiting, but still experiences nausea still reports significant abdominal pain, is able to pass flatus. Objective: Vitals (See below) General: Lying in bed, no acute distress, comfortable, AAOx3 HEENT: NC, AT CVS: RRR, +S1S2 Lungs: Fair air entry b/l, there is mild wheezing that is appreciative bilaterally. No evidence of rhonchi or rales Abdomen: Soft, appears distended. Tenderness is noted at laparoscopic insertion sites. Hypoactive bowel sounds Extremities: No evidence of edema, - Calf tenderness Assessment and plan: Abdominal pain - likely secondary to small bowel obstruction - Has been taken to the OR on 08/06/18 - Managed by primary surgical team - Pain control, anticoagulation and diet as per primary team Shortness of breath - possibly 2/2 underlying COPD - Will adjust inhaled therapy - Continue with Advair Duoneb Leukocytosis - likely 2/2 reactive etiology - Remains afebrile / hemodynamically stable - Will hold off on additional antibiotics Fever on 07/29/18 - likely 2/2 aspiration - possibly 2/2 pneumonitis - Patient had several bouts of nausea and vomiting before spiking a fever - Blood cultures 07/29: Negative at 5 days; GI panel 07/30: Negative - s/p single dose of Levofloxacin VS,Fishbone, I+O VS, Fishbone, I+O Laboratory Tests 08/07/18 08:38 Red Blood Count 3.90 L, Mean Corpuscular Volume 96.2 H, Mean Corpuscular Hemoglobin 30.3, Mean Corpuscular Hemoglobin Concent 31.5 L, Red Cell Distribution Width 12.9, Neutrophils (%) (Auto) 74.6 H, Lymphocytes (%) (Auto) 15.3 L, Monocytes (%) (Auto) 7.0 H, Eosinophils (%) (Auto) 1.5, Basophils (%) (Auto) 0.4, Neutrophils # (Auto) 8.0 H, Lymphocytes # (Auto) 1.6, Monocytes # (Auto) 0.8, Eosinophils # (Auto) 0.2, Basophils # (Auto) 0.0, Calcium Level 7.4 L, Aspartate Amino Transf (AST/SGOT) 14, Alanine Aminotransferase (ALT/SGPT) 18, Alkaline Phosphatase 66, Total Bilirubin 0.2, Total Protein 5.3 L, Albumin 2.2 L Vital Signs Date Time Temp Pulse Resp B/P (MAP) Pulse Ox O2 Delivery O2 Flow Rate FiO2 08/07/18 15:11 98.3 93 20 95 08/07/18 08:46 130/79 08/06/18 16:48 2.0 I&O- Last 24 Hours up to 6 AM 08/07/18 06:00 Intake Total 2600 ml Output Total 1910 ml Balance [address] MD Aug 07, 2018 15:30
[2018-08-07] MEDS: QUEtiapine FUMARATE 200 MG TAB PO SCH (20:58)
[2018-08-07] MEDS: MIRTAZAPINE 15 MG TAB PO SCH (20:58)
[2018-08-08] MEDS: IPRATROPIUM 0.5MG/ALBUTEROL 2.5MG INH SOL UD 3ML (DUONEB)(J7620) NEB SCH ×2 (02:00→07:30)
[2018-08-08] MEDS: oxyCODONE 5MG TAB PO PRN ×2 (04:48→11:01)
[2018-08-08] MEDS: LEVOTHYROXINE 125MCG TABLET (0.125MG) PO SCH (05:43)
[2018-08-08 06:00] VITALS: BP 141/79
[2018-08-08] MEDS: ADVAIR HFA 115/21MCG INHALER INH SCH (07:29)
[2018-08-08 08:08] LABS: BASO % 0.6 % (0.0-1.0); EOS # 0.3 10^3/uL (0.0-0.50); EOS % 4.7 % (0.0-3.0); HEMATOCRIT 37.1 % (36.0-47.0); HEMOGLOBIN 11.9 g/dl (12.0-15.5); LYMPH # 1.2 10^3/uL (1.5-4.5); LYMPH % 16.6 % (24.0-44.0); MEAN CORPUSCULAR HEMOGLOBIN 30.8 pg (27.0-33.0); MEAN CORPUSCULAR HGB CONC 32.1 g/dl (32.0-36.5); MEAN CORPUSCULAR VOLUME 96.1 fl (80.0-96.0); MONO # 0.7 10^3/uL (0.0-0.8); MONO % 10.6 % (0.0-5.0); NEUTROPHILS # 4.6 10^3/uL (1.8-7.7); NEUTROPHILS % 65.6 % (36.0-66.0); PLATELET COUNT, AUTOMATED 275 10^3/uL (150-450); RED BLOOD COUNT 3.86 10^6/uL (4.00-5.40)
[2018-08-08 08:27] LABS: CALCIUM LEVEL 7.8 MG/DL (8.8-10.2); CREATININE FOR GFR 1.01 MG/DL (0.55-1.30); GLOMERULAR FILTRATION RATE 59.5 (>45); MAGNESIUM LEVEL 1.9 MG/DL (1.8-2.4); POTASSIUM SERUM 3.9 MEQ/L (3.5-5.1)
[2018-08-08 08:54] VITALS: BP 137/77
[2018-08-08] MEDS: LISINOPRIL 10 MG TAB PO SCH (08:54)
[2018-08-08] MEDS: PANTOPRAZOLE 40MG TAB (PROTONIX) PO SCH (08:54)
[2018-08-08] MEDS: TAMSULOSIN 0.4 MG CAP PO SCH (11:30)
--- NOTE | 2018-08-08 12:23 | IPNPDOC ---
Text Note Date of Service The patient was seen on 08/08/18. NOTE Subjective: Patient was seen and examined at the bedside. Patient has no breathing difficulties. Denies any cough, chest pain or palpitations. Notes some abdominal pain has experienced nausea currently not vomited. Expresses some diarrhea. Denies any urinary discomfort. Objective: Vitals (See below) General: Lying in bed, no acute distress, comfortable, AAOx3 HEENT: NC, AT CVS: RRR, +S1S2 Lungs: Currently patient's airflow appears equal bilaterally without evidence of wheezing, rhonchi, rales Abdomen: Remains soft, Mild distention, Tenderness around laparoscopic incision site Extremities: No evidence of edema, No calf tenderness Assessment and plan: Abdominal pain - likely secondary to small bowel obstruction - Has been taken to the OR on 08/06/18 - Managed by primary surgical team - Pain control, anticoagulation and diet as per primary team Shortness of breath - possibly 2/2 underlying COPD - c/w Advair - Continue with Advair Duoneb Leukocytosis - likely 2/2 reactive etiology - Remains afebrile / hemodynamically stable - Will hold off on additional antibiotics Fever on 07/29/18 - likely 2/2 aspiration - possibly 2/2 pneumonitis - Patient had several bouts of nausea and vomiting before spiking a fever - Blood cultures 07/29: Negative at 5 days; GI panel 07/30: Negative - s/p single dose of Levofloxacin Disposition: - Anticipate discharge today VS,Zaira, I+O VS, Zaira, I+O Laboratory Tests 08/08/18 07:26 Calcium Level 7.8 L Vital Signs Date Time Temp Pulse Resp B/P (MAP) Pulse Ox O2 Delivery O2 Flow Rate FiO2 08/08/18 11:31 18 08/08/18 08:54 137/77 08/08/18 06:00 98.2 91 91 08/06/18 16:48 2.0 I&O- Last 24 Hours up to 6 AM 08/08/18 06:00 Intake Total 1380 ml Output Total 1150 ml Balance [address] MD Aug 08, 2018 12:23
--- NOTE | 2018-08-10 10:00 | RO ---
DATE OF PROCEDURE: 08/06/2018 PREOPERATIVE DIAGNOSIS: Partial intestinal obstruction secondary to adhesions. POSTOPERATIVE DIAGNOSIS: Adhesions without definite obstruction, and descending colon inflammation. PROCEDURE: Diagnostic Laparoscopy with lysis of adhesions SURGEON: Duran Ziegler MD STENCIL TYPIST: FINN Hall III ANESTHESIA: General. INDICATIONS FOR THE PROCEDURE: Patient is a 62-year-old woman, who was hospitalized with some nausea and vomiting with a CT scan initially that suggested a small bowel obstruction. She improved with nasogastric decompression for approximately 2 days and was then started back on some liquids. She tolerated the liquids well, but with reinstitution of regular food became somewhat more distended and continued to complain of some lower abdominal pain. She underwent a small bowel follow through study that showed passage of contrast through to the colon, though the passage was delayed to 4-1/2 hours. Patient has remained quite distended with some lower abdominal pain. Her picture is felt to be consistent with a fairly high-grade partial obstruction and she is now for laparoscopy and lysis of adhesions. OPERATIVE PROCEDURE: The patient was brought to the operating room and placed on the table in a supine position. She was placed under general endotracheal anesthesia. A Roldan catheter was inserted. The patient's abdomen was prepped and draped in a sterile fashion. Initial entry into the abdomen was in the right upper quadrant. 0.25% Marcaine was infiltrated at the trocar sites. A short incision was made and a Veress needle was inserted. After a positive hanging drop test, the abdomen was inflated with carbon dioxide gas. The abdomen insufflated readily. A 5 mm trocar was placed over a 5 mm 30 degree scope and this was advanced through the abdominal wall without difficulty. Inspection showed that there had been a small amount of insufflation of the mesentery of the ascending colon with no evidence of puncture injury of the bowel itself. There were adhesions noted to the anterior abdominal wall. It was possible to advance the scope superiorly and the liver was well seen and there were no significant adhesions above the liver. The liver itself appeared somewhat pale consistent with some fatty infiltration of the liver. It was also possible to advance the scope down into the right lower quadrant. The normal-appearing appendix was identified. There was no significant free fluid seen. There were some adhesions of the omentum to the anterior abdominal wall primarily along the midline. A piece of prosthetic mesh was noted the periumbilical area. There were also several small scattered fragments of mesh still adherent to the anterior abdominal wall in the right upper quadrant and low in the midline. A second 5 mm trocar was placed lower in the right lower quadrant and a third was placed in the upper abdomen. Using cauterizing scissors, the filmy adhesions along the midline were lysed. There was no bowel that was identified as being directly adherent to the anterior abdominal wall. Working from inferiorly to superiorly the adhesions were taken down broadly across the center of the abdomen. The second piece of mesh that had been placed about a year ago higher in the epigastrium was identified and some of the omentum was peeled away from this exposing this quite readily. The small bowel was then inspected. There were no areas there obviously obstructed. The descending colon appeared to be somewhat hyperemic and perhaps there was some induration to palpation in this area. There was a broad band of adhesions along the left paracolic gutter to the anterior abdominal wall. The small bowel was then run from the ligament of Treitz to the ileocecal valve. The table was tilted as necessary to gain the best exposure. There were a few areas of what appeared to be chronic adhesions involving the distal ileum but without any current evidence of obstruction. There was one area in particular where there appeared to be adhesions between the adjacent talamantes of the bowel where there was a fold and these were lysed, but it was unclear if there was any degree of obstruction at this point. The small bowel was traced all the way to the ligament of Treitz and there did not appear to be any obvious obstruction. There were no indentations or angulations to suggest a prior point of obstruction. I then proceeded to take down some of the adhesions along the left colon and this proved to be a portion of the omentum that was adherent down along the descending colon and up to the anterior abdominal wall. To the left of this there were no further adhesions and this allowed better exposure of the sigmoid colon and the pelvis. It was possible to see clearly down into the pelvis. There were two bands of fibrofatty tissue that extended from the sigmoid colon down into the pelvis and could serve as points for obstruction and these were both lysed with the Harmonic scalpel. At this point, having found no other issues that needed to be addressed, the patient was returned to a flat position. The abdomen was inspected for hemostasis, which was excellent. The abdomen was then deflated and the trocars were removed. The incisions were closed with buried #5-0 Vicryl and Steri-Strips. Light dressings were applied. The patient's Roldan catheter was removed. She was awakened in the operating room, extubated and moved to the recovery room in stable condition. PHILLIP
--- NOTE | 2018-08-18 07:05 | DSES ---
DATE OF ADMISSION: 08/01/2018 DATE OF DISCHARGE: 08/08/2018 ADMITTING DIAGNOSIS: Abdominal pain with possible small bowel obstruction. HISTORY OF PRESENT ILLNESS: The patient is a 62-year-old woman who presented to the emergency department on the evening of July 27 complaining of abdominal pain with some nausea and vomiting. This had begun on the afternoon of the . She had also noted the onset of some diarrhea. She describes pain in the mid abdomen which was fairly constant. Laboratory studies were obtained in the emergency department and a CT scan of the abdomen and pelvis was performed. Her laboratory studies showed a white blood cell count of approximately 18,000 with 90% neutrophils. The CT scan was interpreted by the radiologist as showing some mildly distended fluid-filled small bowel in the mid abdomen felt to be consistent with a small bowel obstruction. I saw her on the morning of July 28 in consultation for the emergency department and she was initially placed on observation status. HOSPITAL COURSE: The patient was kept nothing by mouth and provided with maintenance IV fluid. A nasogastric tube was not inserted initially as her abdominal findings were not felt to warrant this and she had had no vomiting in several hours. She was provided with analgesics as necessary. Later on in the evening of the , she was still complaining of some abdominal pain and repeat labs showed that her white count had risen further. A nasogastric tube was placed and she was started on broad-spectrum antibiotic coverage with Zosyn. Her white count rapidly diminished following this. She felt better after placement of the nasogastric tube. Consultation was obtained from the hospitalist service for assistance in managing her multiple other medical problems. She was initially monitored with the NG tube for a day or two and her distension resolved. She continued to have small loose bowel movements. Once her abdomen had decompressed, the NG was discontinued and she was started on some clear liquids. She appeared to tolerate these well and her diet was then advanced to a regular diet. She redeveloped some abdominal distension with increased discomfort. Her diet was then cut back to nothing by mouth status. She again seemed to improve somewhat, though remained fairly distended. A small bowel follow through x-ray was obtained on August 03 and this was reported as showing no evidence of obstruction. However, the transit time to the colon was increased at approximately 4-1/2 hours. With persistent abdominal distension, she was taken to the operating room on August 06. A laparoscopic examination showed no definite intestinal obstruction. A few adhesions were lysed, but these did not appear to be impinging the bowel lumen significantly. After surgery, her diet was rapidly advanced back to regular. Her laboratory studies remained unremarkable and she was discharged home on 08/08/2018. FINAL DIAGNOSES: 1. Abdominal distension consistent with ileus and possible resolved partial small-bowel obstruction. 2. Hypothyroidism. 3. Hypertension. 4. Chronic obstructive pulmonary disease. 5. Gastroesophageal reflux. 6. Schizoaffective disorder and anxiety. 7. Possible left colon colitis. PROCEDURE PERFORMED: Laparoscopy with lysis of adhesions on 08/06/2018. DISPOSITION: The patient was discharged home on 08/08/2018. She was advised to take a diet as tolerated. She could pursue activity as tolerated. She was to follow up with me in approximately 2 weeks in the office and was to call on the following Friday to make this appointment. She was to follow up with her primary physician Dr. Howe at the [facility]. She was to continue all of her usual medicines as before admission. She was to call for any issues related to her surgery but was reminded to follow up in the emergency department for any acute problems.
== END 2018-08-08 12:25 | disposition home or self-care (01) | DRG 224 ==
LOC: M ED 22:20 → M ED INP 07-28 07:20 → M MS4PR 07-28 13:28 → OBSVTOIN 08-01 09:09 → M MSPAV 08-07 14:56
PROVIDERS: ADMIT Surgery; ATTEND Surgery
PROC: 0DN84ZZ Release Small Intestine, Percutaneous Endoscopic Approach (ICD-10-PCS; principal; 2018-08-06 07:30)
DX: K56.50 Intestinal adhesions [bands], unspecified as to partial versus complete obstruction (principal); J69.0 Pneumonitis due to inhalation of food and vomit; N18.3 Chronic kidney disease, stage 3 (moderate); K76.0 Fatty (change of) liver, not elsewhere classified; F25.9 Schizoaffective disorder, unspecified; E66.9 Obesity, unspecified; Z68.35 Body mass index [BMI] 35.0-35.9, adult; E03.9 Hypothyroidism, unspecified; F17.200 Nicotine dependence, unspecified, uncomplicated; I12.9 Hypertensive chronic kidney disease with stage 1 through stage 4 chronic kidney disease, or unspecified chronic kidney disease; K58.0 Irritable bowel syndrome with diarrhea; E78.5 Hyperlipidemia, unspecified; E55.9 Vitamin D deficiency, unspecified; G89.29 Other chronic pain; G47.33 Obstructive sleep apnea (adult) (pediatric); N39.41 Urge incontinence; K57.90 Diverticulosis of intestine, part unspecified, without perforation or abscess without bleeding; K64.8 Other hemorrhoids; M54.9 Dorsalgia, unspecified; J44.9 Chronic obstructive pulmonary disease, unspecified; K21.9 Gastro-esophageal reflux disease without esophagitis; F41.9 Anxiety disorder, unspecified; Z90.49 Acquired absence of other specified parts of digestive tract; Z90.710 Acquired absence of both cervix and uterus; Z88.6 Allergy status to analgesic agent; Z88.5 Allergy status to narcotic agent; Z88.8 Allergy status to other drugs, medicaments and biological substances; Z79.899 Other long term (current) drug therapy; Z87.442 Personal history of urinary calculi

== ENCOUNTER 2018-08-13 14:24 | Emergency (ER) | payer OTHER ==
[~2018-08-13] VITALS: Ht 160 cm; Wt 90.0 kg
[~2018-08-13 14:24] MED LIST changes: +LIDO1CRE2 TOP; +NICO21DI31 TD; +ONDA4TAB6 PO; +SERO400T PO
[2018-08-13] MEDS ORDERED: ONDANSETRON 4MG/2ML VIAL (J2405) IV ONE (15:30)
[2018-08-13] MEDS ORDERED: NS 1,000 ML IV ONE (15:30)
[2018-08-13] MEDS ORDERED: MORPHINE 4 MG/ML 1ML VIAL/SYRINGE (J2270) IV ONE (15:45)
[2018-08-13 15:55] LABS: BASO # 0.1 10^3/uL (0.0-0.2); BASO % 0.8 % (0.0-1.0); EOS # 0.1 10^3/uL (0.0-0.50); EOS % 1.8 % (0.0-3.0); HEMATOCRIT 40.6 % (36.0-47.0); HEMOGLOBIN 12.8 g/dl (12.0-15.5); LYMPH # 1.8 10^3/uL (1.5-4.5); LYMPH % 22.3 % (24.0-44.0); MEAN CORPUSCULAR HEMOGLOBIN 29.7 pg (27.0-33.0); MEAN CORPUSCULAR HGB CONC 31.5 g/dl (32.0-36.5); MEAN CORPUSCULAR VOLUME 94.2 fl (80.0-96.0); MONO # 0.9 10^3/uL (0.0-0.8); MONO % 11.7 % (0.0-5.0); NEUTROPHILS % 62.9 % (36.0-66.0); PLATELET COUNT, AUTOMATED 403 10^3/uL (150-450); RED BLOOD COUNT 4.31 10^6/uL (4.00-5.40)
[2018-08-13 16:12] LABS: ALBUMIN 2.6 GM/DL (3.2-5.2); BILIRUBIN,DIRECT 0.1 MG/DL (0.0-0.2); BILIRUBIN,TOTAL 0.4 MG/DL (0.2-1.0); CALCIUM LEVEL 7.9 MG/DL (8.8-10.2); CREATININE FOR GFR 1.07 MG/DL (0.55-1.30); GLOMERULAR FILTRATION RATE 55.7 (>45); POTASSIUM SERUM 4.2 MEQ/L (3.5-5.1); TOTAL PROTEIN 6.1 GM/DL (6.4-8.2)
[2018-08-13 16:13] LABS: INR 1.11; PROTHROMBIN TIME 14.4 SECONDS (12.1-14.4)
[2018-08-13 16:14] LABS: PARTIAL THROMBOPLASTIN TIME 28.4 SECONDS (25.4-37.6)
[2018-08-13] MEDS ORDERED: ISOVUE-370 76% 100ML VIAL (Q9967) As Ordered ONE (16:17)
[2018-08-13 16:20] LABS: PLATELET CLUMPS SMALL AMT; PLATELET ESTIMATE NORMAL (NORMAL)
--- NOTE | 2018-08-13 17:11 | REP ---
Clinical: Left lower quadrant pain with hematochezia. Technique: Axial contrast enhanced images from the lung bases to the pubic symphysis using oral and 100 ml Isovue 370 intravenous contrast material with coronal and sagittal re-formations. Findings: Mucosal thickening and pericolonic stranding is appreciated involving the mid descending through proximal sigmoid colon suggesting infectious/inflammatory colitis. Findings have considerably improved when compared to 07/29/2018. No evidence for bowel obstruction or free air to suggest perforation. Small amount of free fluid in the pelvis is nonspecific. No abscess or drainable collection identified. Evidence for prior partial colonic resection with areas of anastomoses involving the transverse colon. Diffuse hepatic steatosis noted without focal hepatic lesion. Spleen, pancreas, bilateral adrenal glands and left kidney appear normal. Right kidney demonstrates elements of cortical scarring, atrophy and few simple appearing cysts measuring up to approximately 1.6 cm. Evidence of prior cholecystectomy noted. Pelvis demonstrates relatively normal bladder with small focus of gas possibly related to prior instrumentation or catheterization. Evidence for prior hysterectomy noted. No adenopathy. Abdominal aorta and vasculature without aneurysm or dissection. Musculoskeletal structures are intact. Lung bases demonstrate bibasilar (left greater than right) and medial right middle lobe atelectasis along with new small left pleural effusion. Impression: 1. Infectious/inflammatory colitis involving the mid descending through sigmoid colon as described above. Findings are improved when compared to 07/29/2018. 2. Hepatic steatosis. 3. Chronic right renal changes. 4. Bibasilar and right middle lobe atelectasis similar to prior examination with a new small left pleural effusion. Electronically Signed by Kuldeep Borjas MD 08/13/2018 05:02 P
[2018-08-13 20:42] VITALS: BP 138/93
--- NOTE | 2018-08-18 14:07 | ED PDOC ---
Post-Departure Follow-Up dr lane faxed formal report of ct abd/p for fu Jessica Armijo MD Aug 18, 2018 14:07
== END 2018-08-13 21:01 | disposition home or self-care (01) ==
LOC: M ED 14:24
DX: K52.9 Noninfective gastroenteritis and colitis, unspecified (principal); I12.9 Hypertensive chronic kidney disease with stage 1 through stage 4 chronic kidney disease, or unspecified chronic kidney disease; N18.3 Chronic kidney disease, stage 3 (moderate); J44.9 Chronic obstructive pulmonary disease, unspecified; E03.9 Hypothyroidism, unspecified; E55.9 Vitamin D deficiency, unspecified; K21.9 Gastro-esophageal reflux disease without esophagitis; F41.9 Anxiety disorder, unspecified; F25.9 Schizoaffective disorder, unspecified; Z79.899 Other long term (current) drug therapy; Z79.890 Hormone replacement therapy; Z88.1 Allergy status to other antibiotic agents; Z88.5 Allergy status to narcotic agent; Z88.8 Allergy status to other drugs, medicaments and biological substances; Z87.891 Personal history of nicotine dependence
CPT/HCPCS: 74177; 80048; 80076; 82150; 83605; 83690; 85025; 85610; 85730; 96361; 96374; 96375; 99284; J2270; J2405; Q9967

== ENCOUNTER → 2018-08-14 | Outpatient (REF) | payer OTHER ==
[~2018-08-14] MED LIST changes: +LIDO1CRE2 EXT; -LIDO1CRE2 TOP
== END ==
LOC: M LAB REF 11:08
PROVIDERS: ATTEND Emergency Medicine
DX: R19.7 Diarrhea, unspecified (principal)

== ENCOUNTER → 2018-08-18 | Outpatient (REF) | payer OTHER ==
[2018-08-18 14:04] LABS: HEMATOCRIT 37.9 % (36.0-47.0); MEAN CORPUSCULAR HEMOGLOBIN 29.7 pg (27.0-33.0); MEAN CORPUSCULAR HGB CONC 31.7 g/dl (32.0-36.5); MEAN CORPUSCULAR VOLUME 93.8 fl (80.0-96.0); PLATELET COUNT, AUTOMATED 220 10^3/uL (150-450); RED BLOOD COUNT 4.04 10^6/uL (4.00-5.40); WHITE BLOOD COUNT 5.7 10^3/uL (4.0-10.0)
[2018-08-18 14:33] LABS: ALBUMIN 2.5 GM/DL (3.2-5.2); BILIRUBIN,TOTAL 0.3 MG/DL (0.2-1.0); CALCIUM LEVEL 7.7 MG/DL (8.8-10.2); CREATININE FOR GFR 1.09 MG/DL (0.55-1.30); GLOMERULAR FILTRATION RATE 54.5 (>45); POTASSIUM SERUM 3.8 MEQ/L (3.5-5.1); TOTAL PROTEIN 5.9 GM/DL (6.4-8.2)
== END ==
LOC: M SFHCPLAZ 11:37
PROVIDERS: ATTEND Family Medicine
DX: K62.5 Hemorrhage of anus and rectum (principal); R19.7 Diarrhea, unspecified

== ENCOUNTER → 2018-08-20 | Outpatient (CLI) | payer OTHER ==
[~2018-08-20] MED LIST changes: -LIDO1CRE2 EXT; +LIDO1CRE2 TOP; +MULT-40 PO
--- NOTE | 2018-09-07 00:26 | ECWPNPC ---
PATIENT NAME: MAGALY CORTEZ : 1955 GENDER: FEMALE VISIT DATE: 08/20/2018 DISCHARGE DATE: 08/20/18 1411 VISIT LOCKED DATE TIME: PHYSICIAN: VAN CLAYTON RESOURCE: VAN CLAYTON REASON FOR APPOINTMENT 1. [facility] BACK HISTORY OF PRESENT ILLNESS HISTORY OF PRESENT ILLNESS: HERE FOR F/U OF CHRONIC LOW BACK PAIN.RATING PAIN VAS 9/10.WORSE AREA OF PAIN IS RIGHT LOW BACK.HAS BEEN ILL OVER THE PAST 3 WEEKS.DISCUSSED MEDICATION OPTIONS. PAIN THE PATIENT DESCRIBES THE PAIN... THE PATIENT DESCRIBES THE PAIN... FALL RISK SCREENING: SCREENING :NO FALLS REPORTED IN THE LAST YEAR CURRENT MEDICATIONS TAKING MULTI FOR HER 50+ - TABLET ORALLY DAILY TAKING KLONOPIN 1 MG TABLET 1 TABLET ORALLY THREE TIMES DAILY TAKING REMERON 30 MG TABLET 1 TABLET BEFORE BEDTIME IN THE EVENING ORALLY ONCE A DAY TAKING SEROQUEL 400 MG TABLET 1 TABLET AT BEDTIME ORALLY ONCE A DAY TAKING LIDOCAINE HCL 4 % CREAM DIRECTED EXTERNALLY TO KNEES Q8H PRN TAKING IPRATROPIUM-ALBUTEROL 0.5-2.5 (3) MG/3ML SOLUTION 3 ML INHALATION EVERY 6 HRS NEEDED TAKING PANTOPRAZOLE SODIUM 40 MG TABLET DELAYED RELEASE 1 TABLET ORALLY BID TAKING COMBIVENT 120-20 MCG/ACT AEROSOL 1 PUFFS INHALATION FOUR TIMES A DAY, NOTES: QID DOSING PER PULMONARY TAKING SYNTHROID 125 MCG TABLET 1 TABLET ORALLY ONCE A DAY TAKING TAMSULOSIN HCL 0.4 MG CAPSULE 1 CAPSULE ORALLY ONCE A DAY TAKING GAVISCON 80-14.2 MG TABLET CHEWABLE 2 TABLETS AFTER MEALS AND AT BEDTIME NEEDED ORALLY FOUR TIMES A DAY TAKING VITAMIN D (ERGOCALCIFEROL) 65238 UNIT CAPSULE 1 CAPSULE ORALLY WEEKLY TAKING ARNUITY ELLIPTA 100 MCG/ACT AEROSOL POWDER BREATH ACTIVATED 1 PUFF INHALATION ONCE A DAY TAKING TESSALON PERLES 100 MG CAPSULE 1 CAPSULE NEEDED ORALLY THREE TIMES A DAY TAKING CYCLOBENZAPRINE HCL 10 MG TABLET 1 TABLET NEEDED ORALLY THREE TIMES A DAY TAKING NORCO 10-325 MG TABLET 1 TABLET NEEDED ORALLY EVERY 6 HRS PRN MDD4 TAKING LISINOPRIL 10 MG TABLET 1 TABLET ORALLY ONCE A DAY TAKING ZOFRAN 4 MG TABLET 1 TAB NEEDED FOR NAUSEA ORALLY EVERY 6 HOURS TAKING VENTOLIN HFA 108 (90 BASE) MCG/ACT AEROSOL SOLUTION 2 PUFFS NEEDED INHALATION EVERY 4 HRS TAKING NORCO 10-325 MG TABLET 1 TABLET NEEDED ORALLY EVERY 6 HRS PRN PAIN MDD=4 DISCONTINUED PREMARIN 0.625 MG/GM CREAM 1/2 GM VAGINAL TWICE A WEEK DISCONTINUED NICODERM CQ 21 MG/24HR PATCH 24 HOUR 1 PATCH TO SKIN TRANSDERMAL ONCE A DAY DISCONTINUED GUAIFENESIN ER 1200 MG TABLET EXTENDED RELEASE 12 HOUR 1 TABLET NEEDED ORALLY EVERY 12 HRS DISCONTINUED AMOXICILLIN 500 MG CAPSULE 1 CAPSULE ORALLY FOUR TIMES DAILY DISCONTINUED LEVOFLOXACIN 500 MG TABLET 1 TABLET ORALLY ONCE A DAY DISCONTINUED PREDNISONE 10 MG TABLET 1 TABLET ORALLY BID DISCONTINUED TIZANIDINE HCL 2 MG TABLET 1/2 TAB TO 1 ORALLY Q8H PRN FOR SEVERE PAIN MEDICATION LIST REVIEWED AND RECONCILED WITH THE PATIENT PAST MEDICAL HISTORY GERD EMPHYSEMA - DR. ARAYA SCHIZOAFFECTIVE DISORDER CHRONIC LOW BACK PAIN WITH BILATERAL SCIATICA CHRONIC BILATERAL LEG PAIN SACROILIAC JOINT PAIN KIDNEY STONES HERNIA IN LOWER ABDOMEN STAGE 3 KIDNEY DISEASE HYPOTHYROIDISM IBS-D URGE INCONTINENCE HYPERLIPIDEMIA NAFLD VIT D DEFICIENCY MYRIAD MY RISK GENETIC TEST NEG 2017 AND LIFETIME BREAST CANCER RISK 10.5 % LOW DOSE LUNG CT NEGATIVE 09/25/17. BULGING DISKS IN NECK HYPERTENSION FLACO - DR. ARAYA PNEUMONIA 07/2018 ALLERGIES TETRACYCLINE HCL: RASH, VOMITING - ALLERGY MOTRIN: NAUSEA - SIDE EFFECTS RISPERDAL: ANAPHYLAXIS - ALLERGY TRAZODONE: CONFUSION - SIDE EFFECTS TRAMADOL HCL: NAUSEA - SIDE EFFECTS [place] POTASSIUM: FELT TOO WARM, SALTY TASTE IN MOUTH - SIDE EFFECTS SURGICAL HISTORY STELLA FUNDOPLICATION FOR GERD CHOLECYSTECTOMY 1996 LT SHOULDER SURGERY 2000 HYSTERECTOMY TOTAL VAGINAL FOR DYSPARUNIA WITH UTERINE PROLPASE ; OVARIES WERE LEFT IN PLACE 06/01/97 HERNIA REPAIR 04/25 LEFT CATARACT 2015 ADHESION REMOVAL 03/27 BUNIONECTOMY AND HAMMER TOE REPAIR (3 TOES) - DR. ORTEZ 03/26/2017 ABDOMINAL HERNIA REPAIR X 2 06/20/[address] ALLEN IN 2012 ? D&C LAPAROSCOPY 1977 D&C FOR POST HEMORRAGE 1977 D&C BTL 1982 ENDOSCOPY SANDHYA 09/03/2017 INTESTINAL MASS REMOVAL 12/16/2017 CATARAC SURGERY 02/2018 COLONOSCOPY - DR. ARTHUR, SUBOPTIMAL PREP 04/2018 COLONOSCOPY - 2 POLYPS REMOVED, REPEAT 5 YEARS - DR. ARTHUR 06/2018 FAMILY HISTORY FATHER: , COPD MOTHER: , COPD SIBLINGS: SOME SIBLINGS ; ONE DUE TO NON [place] LYMPHOMA AND ONE TO LUNG CANCER; THE SISTER WHO OF LUNG CANCER HAD BREAST CANCER IN HER 40'S ; A SISTER HAS SKIN CANCER; ONE SISTER HAS STAGE 4 LIVER DISEASE 2 BROTHER(S) , 5 SISTER(S) . 1 SON(S) - HEALTHY. NO KNOWN FAMILY HISTORY OF ANY UROLOGICALLY RELATED DISEASES\\\/CANCERS. DENIES KNOWN FAMILY HISTORY OF COLON CANCER. SOCIAL HISTORY GENERAL: TOBACCO USE ARE YOU A:FORMER SMOKER PT STATES SHE IS TRYING TO QUIT SMOKING, HAS PATCHES, HAS STARTED TO CUT BACK. 08/20/18 PT. STATES SHE HAS QUIT SMOKING VD HOW LONG HAS IT BEEN SINCE YOU LAST SMOKED?1-3 MONTHS 3 DAYS ADDITIONAL FINDINGS: TOBACCO USERLIGHT CIGARETTE SMOKER ((1-9 CIGS/DAY) SMOKING CESSATION INFORMATION GIVEN08/20/2018 LATEX QUESTIONNAIRE LATEX ALLERGY : HAVE YOU EVER DEVELOPED ANY TYPE OF REACTION AFTER HANDLING LATEX PRODUCTS SUCH RUBBER GLOVES, CONDOMS, DIAPHRAGMS, BALLOONS, SOCKS, OR UNDERWEAR?NO LATEX ALLERGY : HAVE YOU EVER DEVELOPED ANY TYPE OF REACTION DURING OR AFTER DENTAL APPOINTMENT, VAGINAL/RECTAL EXAMINATION, SURGICAL PROCEDURE, OR ANY OTHER EXPOSURE?NO DATE ASKED : 08/18/2018 LATEX RISK : HAVE YOU EVER HAD ANY DIFFICULTY BREATHING OR HIVES AFTER EATING OR HANDLING ANY FRUITS, OR VEGETABLES; SUCH KIWI, BANANAS, STONE FRUITS, OR CHESTNUTSNO LATEX RISK : DO YOU HAVE A PREVIOUS PERSONAL HISTORY OF MORE THAN NINE SURGERIES, SPINA BIFIDA, OR REPEATED CATHERTIZATIONS? YES - PLEASE INDICATE : > 9 SURGERIES LATEX RISK : ARE YOU FREQUENTLY EXPOSED TO LATEX PRODUCTS IN YOUR OCCUPATION?NO ALCOHOL SCREENING DID YOU HAVE A DRINK CONTAINING ALCOHOL IN THE PAST YEAR?NO POINTS0 INTERPRETATIONNEGATIVE RECREATIONAL DRUG USE DRUG USE? NO . CAFFEINE CAFFEINE USE?YES HOW OFTEN AND HOW MUCH? 4-5 CUPS COFFEE DAILY SEXUAL HX HAD SEX IN THE LAST 12 MONTHS (VAGINAL, ORAL, OR ANAL)?NO HAVE YOU EVER HAD AN STD?NO HIV / HEP-C SCREENING HIV TEST OFFERED TO PATIENT:YES DATE OFFERED:07/03/2018 TEST ACCEPTED:YES HEP-C TEST OFFERED TO PATIENT:YES DATE OFFERED:04/25/2017 TEST ACCEPTED:NO REASON:PATIENT DECLINED BROCHURE PROVIDED TO PATIENTYES SIKHISM [id number] JUDAISM LANGUAGE LANGUAGES SPOKEN:CROATIAN EDUCATION LEVEL OF EDUCATION:NOT FINISHED HIGH SCHOOL GED LEARNING BARRIERS / SPECIAL NEEDS CHANGE FROM LAST VISIT?NO BARRIERS TO LEARNING?NO HEARING IMPAIRED?NO VISION IMPAIRED?YES COGNITIVELY IMPAIRED?NO :CORRECTIVE LENSES READINESS TO LEARN?YES LEARNING PREFERENCES?NO LEARNING CAPABILITIES PRESENT?YES EMOTIONAL BARRIERS?NO SPECIAL DEVICES?YES :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 DIET: REGULAR. EXERCISE: NO REGULAR EXERCISE. MARITAL STATUS: . OTHERS AT HOME: NONE. PAIN CLINIC PFS, CLERGY, PUBLIC HEALTH REFERRALS PFS REFERRAL NEEDED?NO CLERGY REFERRAL NEEDED?NO PUBLIC HEALTH REFERRAL NEEDED?NO HAS THE PATIENT BEEN EDUCATED REGARDING HIS/HER PLAN OF CARE?YES HAS THE PATIENT BEEN EDUCATED REGARDING PAIN, THE RISK FOR PAIN, THE IMPORTANCE OF EFFECTIVE PAIN MANAGEMENT, AND THE PAIN ASSESSMENT PROCESS?YES ADVANCE DIRECTIVE ADVANCE DIRECTIVE DISCUSSED WITH PATIENT:YES 06/02/18 NO HCP, PT HAS INFORMATION ON HCP AND STATES SHE JUST HASN'T FILLED THEM OUT YET. HELP OFFERED IN COMPLETING FORM IF NEEDED. PT. GIVEN HCP INFORMATION VD REVIEWED WITH PT 01/16/18 1310 LASREVIEWED WITH PT 02/02/18 0930 LASREVIEWED WITH PATIENT 02/26/18 1201 JSREVIEWED WITH PT 03/20/18 1017 BVREVIEWED WITH PT 05/01/18 0950 LAS06/02/18 REVIEWED WITH PT. AD. HOSPITALIZATION/MAJOR DIAGNOSTIC PROCEDURE PNEUMONIA PSYCHIATRIC 1996 CONSTIPATION/BLOOD IN STOOL 10/10/2017 SURGURIES PNUEMONIA, INFECTION, PARTIAL BOWEL BLOCKAGE 07/2018 REVIEW OF SYSTEMS REVIEWED BY: PROVIDER: VAN ROCHA . CONSTITUTIONAL: ANY CHANGE IN YOUR MEDICAL CONDITION? NO . CHILLS NO . FEVER NO . INFECTION: DO YOU HAVE NEW INFECTIONS? YES . DO YOU HAVE HISTORY OF MRSA? NO . MUSCULOSKELETAL: ANY NEW PATTERNS OF PAIN OR NUMBNESS? YES . GASTROENTEROLOGY: ANY NEW CHANGE IN BOWEL CONTROL? YES, PCP IS AWAREE OF IT . GENITOURINARY: ANY NEW CHANGE IN BLADDER CONTROL? NO . IS THERE A CHANCE YOU COULD BE ? NO . HEMATOLOGY/LYMPH: DO YOU TAKE ANY BLOOD THINNERS? (FOR EXAMPLE- COUMADIN, PLAVIX, AGGRENOX, PLATEL, PRADAXA, OR XARELTO) NO . WHEN WAS YOUR LAST DOSE? DATE: TIME: . NEUROLOGY: HAVE YOU FALLEN IN THE PAST 12 MONTHS? YES . ANY NEW EXTREMITY NUMBNESS OR WEAKNESS? YES . CARDIOLOGY: DO YOU HAVE A PACEMAKER OR DEFIBRILLATOR? NO . RESPIRATORY: HAVE YOU BEEN SICK IN THE PAST WEEK? NO . FEVER NO . FLU LIKE SYMPTOMS? NO . COUGH YES . INTEGUMENTARY: DO YOU HAVE ANY RASHES OR OPEN SORES? NO . ALLERGIC/IMMUNO: ARE YOU ALLERGIC TO IV DYE? NO . ANY NEW ALLERGIES? NO . PSYCHIATRIC: DO YOU HAVE THOUGHTS OF HURTING YOURSELF OR SOMEONE ELSE? NO . ARE YOU ABUSED, NEGLECTED, OR IN AN UNSAFE ENVIRONMENT? NO . ENDOCRINOLOGY: ARE YOU DIABETIC? NO . OTHER: DO YOU NEED ANY PRESCRIPTIONS? NO . IF YES, PLEASE LIST: ____ . ANY NEW PROBLEMS WITH YOUR MEDICATIONS? YES . WHEN DID YOU LAST EAT? ____ . WHEN DID YOU LAST DRINK? ____ . WHAT DID YOU LAST DRINK? ____ . NAME OF PERSON DRIVING YOU HOME? ____ . DO YOU HAVE ANY OTHER QUESTIONS OR CONCERNS NO . VITAL SIGNS WT 189 LBS, HT 63 IN, BMI 33.48 INDEX, BP 140/77 MM HG, HR 92 /MIN, RR 16 /MIN, TEMP 98.5 F, OXYGEN SAT % 96, REVIEWED BY: ANNI. EXAMINATION GENERAL EXAMINATION: GENERAL APPEARANCE:AWAKE,ALERT ,PLEAASANT . PSYCHAFFECT NORMAL . LUNGS:LUNG OLIVER ARE CLEAR TO AUSCULTATION BILATERALLY. GOOD MOVEMENT OF AIR . HEART:S1, S2 IN A REGULAR RATE AND RHYTHM. NO SIGNIFICANT MURMURS, RUBS OR GALLOPS NOTED . ASSESSMENTS LUMBAGO WITH SCIATICA, RIGHT SIDE - M54.41 (PRIMARY) CHRONIC PRESCRIPTION OPIATE USE - Z79.899 TREATMENT LUMBAGO WITH SCIATICA, RIGHT SIDE STOP NORCO TABLET, 10-325 MG, 1 TABLET NEEDED, ORALLY, EVERY 6 HRS PRN MDD4 CONTINUE CYCLOBENZAPRINE HCL TABLET, 10 MG, 1 TABLET NEEDED, ORALLY, THREE TIMES A DAY START PERCOCET TABLET, 7.5-325 MG, 1 TABLET NEEDED, ORALLY, EVERY 6 HRS PRN MDD4, 30 DAY(S), 120, REFILLS 0 NOTES: ISTOP REGISTRY REVIEWED AND DEMONSTRATES COMPLLIANCE. BRINGS IN MEDICATIONS WHICH IS APPROPRIATE FOR WHAT WAS DISPENSED. RECENT URINE TOXICOLOGY REVIEWED. NO UNAUTHORIZED MEDICATIONS. NO ILLICIT SUBSTANCES AND PRESCRIBED MEDICATIONS WERE PRESENT. URINE TOX TODAY, RISKS AND BENEFITS OF NARCOTIC/OPIOD MEDICATIONS WERE REVIEWED WITH PATIENT - THIS INCLUDES BUT IS NOT LIMITED TO RISK OF DEPENDANCE/DEVELOPMENT OF ADDICTION, MOOD DISTURBANCE AND DEPRESSION, OSTEOPOROSIS, HORMONAL AND LABIDAL CHANGES, RESPIRATORY DEPRESSION AND . PATIENT IS ADVISED NOT TO DRIVE OR DRINK ALCOHOL WHILE ON THESE MEDICATIONS. PROCEDURE CODES FA211 ESTABILISHED PATIENT [facility] CHARGE DISPOSITION & COMMUNICATION FOLLOW UP 2 MONTHS ELECTRONICALLY SIGNED BY AJ IBARRA ON 09/06/2018 AT 12:01 PM EDT DISCLAIMER : THIS IS A VISIT SUMMARY EXTRACTED FROM THE [employer] CHART. IT IS NOT A COPY OF THE [employer] PROGRESS NOTE. PHILLIP
== END ==
LOC: M PAIN 13:00
PROVIDERS: ATTEND Nurse Practitioner Family
DX: M54.41 Lumbago with sciatica, right side (principal); G89.29 Other chronic pain; K21.9 Gastro-esophageal reflux disease without esophagitis; J43.9 Emphysema, unspecified; F25.9 Schizoaffective disorder, unspecified; I12.9 Hypertensive chronic kidney disease with stage 1 through stage 4 chronic kidney disease, or unspecified chronic kidney disease; N18.3 Chronic kidney disease, stage 3 (moderate); E03.9 Hypothyroidism, unspecified; E78.5 Hyperlipidemia, unspecified; E55.9 Vitamin D deficiency, unspecified; G47.33 Obstructive sleep apnea (adult) (pediatric); Z79.891 Long term (current) use of opiate analgesic; Z79.899 Other long term (current) drug therapy; Z88.1 Allergy status to other antibiotic agents; Z88.6 Allergy status to analgesic agent; Z88.5 Allergy status to narcotic agent; Z88.8 Allergy status to other drugs, medicaments and biological substances; Z87.891 Personal history of nicotine dependence

== ENCOUNTER 2018-08-30 09:07 | Inpatient (IN) | payer OTHER ==
[~2018-08-30] VITALS: Ht 152.4 cm; Wt 91.8 kg
[~2018-08-30 09:07] MED LIST changes: -MULT-40 PO
[2018-08-30] MEDS ORDERED: NS 1,000 ML IV ONE ×3 (09:30→22:45)
[2018-08-30] MEDS ORDERED: PROMETHAZINE INJ 25 MG/ML VIAL (J2550) IM ONE (09:30)
[2018-08-30 10:03] LABS: BASO # 0.1 10^3/uL (0.0-0.2); BASO % 0.6 % (0.0-1.0); EOS # 0.2 10^3/uL (0.0-0.50); EOS % 1.9 % (0.0-3.0); HEMATOCRIT 40.9 % (36.0-47.0); HEMOGLOBIN 12.9 g/dl (12.0-15.5); LYMPH # 2.7 10^3/uL (1.5-4.5); LYMPH % 29.5 % (24.0-44.0); MEAN CORPUSCULAR HEMOGLOBIN 29.2 pg (27.0-33.0); MEAN CORPUSCULAR HGB CONC 31.5 g/dl (32.0-36.5); MEAN CORPUSCULAR VOLUME 92.5 fl (80.0-96.0); MONO % 11.3 % (0.0-5.0); NEUTROPHILS # 5.1 10^3/uL (1.8-7.7); NEUTROPHILS % 56.3 % (36.0-66.0); PLATELET COUNT, AUTOMATED 234 10^3/uL (150-450); RED BLOOD COUNT 4.42 10^6/uL (4.00-5.40)
--- NOTE | 2018-08-30 10:59 | REP ---
REASON: Abdominal pain. COMPARISON: 08/01/2018. The accompanying frontal view of the chest is unchanged. There is no free subdiaphragmatic air. There are no new abnormal opacities. The pleural angles are sharp. There is a large amount of colonic content representing a change from the prior exam. There is no intestinal obstruction. The organ silhouettes are obscured by the content. There is no change in the osseous structures. IMPRESSION: Large amount of intestinal content. Correlate clinically for constipation. Electronically Signed by Edil Dela Cruz DO 08/30/2018 02:31 P
[2018-08-30] MEDS ORDERED: LORazepam 2 MG/ML VIAL (J2060) IV ONE (11:00)
[2018-08-30] MEDS ORDERED: FLEET OIL RETENTION ENEMA PR ONE (11:00)
[2018-08-30 11:11] LABS: CALCIUM LEVEL 7.8 MG/DL (8.8-10.2); CREATININE FOR GFR 1.32 MG/DL (0.55-1.30); GLOMERULAR FILTRATION RATE 43.7 (>45); POTASSIUM SERUM 3.9 MEQ/L (3.5-5.1)
[2018-08-30 11:12] LABS: ALBUMIN 2.4 GM/DL (3.2-5.2); BILIRUBIN,DIRECT 0.2 MG/DL (0.0-0.2); BILIRUBIN,TOTAL 0.4 MG/DL (0.2-1.0); TOTAL PROTEIN 6.2 GM/DL (6.4-8.2)
[2018-08-30] MEDS: GASTROGRAFIN SOLUTION 30ML PO SCH ×2 (14:01→14:30)
[2018-08-30] MEDS ORDERED: ISOVUE-370 76% 100ML VIAL (Q9967) As Ordered ONE (15:26)
[2018-08-30] MEDS ORDERED: ACETAMINOPHEN TAB 650MG DOSE (2X325MG) PO ONE (17:15)
[2018-08-30] MEDS ORDERED: OXYC1TAB15 PO (18:04)
[2018-08-30] MEDS ORDERED: MULT-40 PO (18:04)
[2018-08-30] MEDS ORDERED: metroNIDAZOLE 500 MG in APPROPRIATE DILUENT 1 EA IV SCH (18:15)
[2018-08-30] MEDS ORDERED: CIPROFLOXACIN 400 MG in APPROPRIATE DILUENT 1 EA IV SCH (18:15)
[2018-08-30] MEDS ORDERED: NS 1,000 ML IV STA (18:34)
[2018-08-30] MEDS ORDERED: PIPERACILLIN/TAZOBACTAM SOD 3.375 GM in D5W MINI-BAG PLUS 50 ML IV ONE (18:45)
[2018-08-30] MEDS ORDERED: ALBUTEROL 90 MCG/ACT 8GM HFA INHALER INH PRN (19:00)
[2018-08-30] MEDS ORDERED: IPRATROPIUM 0.5MG/ALBUTEROL 2.5MG INH SOL UD 3ML (DUONEB)(J7620) INH PRN (19:00)
[2018-08-30] MEDS ORDERED: CYCLOBENZAPRINE 5MG TABLET PO PRN (19:00)
--- NOTE | 2018-08-30 19:18 | HPEPDOC ---
General Date of Admission Aug 30, 2018 at 18:06 Chief Complaint The patient is a 62-year-old female admitted with a reason for visit of Colitis ,Intractable Nausea And Vomiting. Source: Patient History of Present Illness The patient is a 62-year-old female who presents to the year with complaints of abdominal pain and nausea and vomiting as well as fevers. She was recently admitted to the hospital with similar complaints. At that time, patient had undergone treatment with IV Zosyn followed by exploratory laparoscopy with lysis of adhesions. No obvious findings were noted as for a small bowel obstruction during the laparoscopy. Subsequently, the patient was doing better and was discharged home. She reports that after going home, she had been noticing some fresh red blood in her stools. She reports she had discussed this with the surgeon covering for Dr. Reyes and was told that it is likely related to her hemorrhoids. She reports that over the last 1 week, she has been having problems with nausea as well as vomiting per degree after eatingusually a few minutes after eating, but also at other times when she does not eat. She reports more than 5 episodes of emesis daily for the last few days. Denies noticing any blood in her emesis. Also reports abdominal painparticularly in the left lower quadrant, sharp/80 and throbbing, 8/10 in intensity at worst, sometimes about 4/10 in intensity. Reports she has been having loose stools for couple of monthsshe is unable to tell me when her last solid bowel movement was. In addition, she also reports fevers of around 99.9F at home for the last couple of days as well as some chills and sweats at nights. Denies any associated dysuria. She thinks she may have had some blood in her urine but reports she has been urinating okay. Also reports some shortness of breath but denies any chest pain or cough. Denies any dizziness/lightheadedness or headache at this time. Reports she is nauseated and time of my evaluation. Home Medications Scheduled Cranberry (Cranberry) 400 Mg Cap, 400 MG PO BID, (Reported) Ergocalciferol (Vitamin D2) (Vitamin D2) 50,000 Unit Cap, 50,000 UNIT PO 1XWK, (Reported) WEDNESDAYS Fluticasone Furoate (Arnuity Ellipta) 100 Mcg/Act Inh, 100 MCG INH DAILY, (Reported) Levothyroxine Sodium (Levothyroxine Sodium) 125 Mcg Tab, 125 MCG PO DAILY, (Reported) Lisinopril (Lisinopril) 10 Mg Tab, 10 MG PO DAILY, (Reported) Mirtazapine (Remeron) 30 Mg Tab, 30 MG PO QHS, (Reported) Multivitamin (Multivitamins) 1 Each Tablet, 1 TAB PO DAILY, (Reported) Pantoprazole Sodium (Pantoprazole Sodium) 40 Mg Tab, 40 MG PO BID, (Reported) Quetiapine Fumarate (Seroquel) 400 Mg Tab, 400 MG PO QHS, (Reported) Tamsulosin HCl (Flomax) 0.4 Mg Cap, 0.4 MG PO DAILY, (Reported) TAKES AT NOONTIME Scheduled PRN Albuterol Sulfate (Ventolin Hfa) 108 Mcg/Act Aer, 2 PUFFS INH Q4H PRN for SHORTNESS OF BREATH, (Reported) Clonazepam (Clonazepam) 1 Mg Tab, 1 MG PO BID PRN for ANXIETY/AGITATION, (Reported) CAN HAVE UP TO 2.5MG/DAY Clonazepam (Clonazepam) 1 Mg Tab, 0.5 MG PO DAILY PRN for ANXIETY/AGITATION, (Reported) CAN HAVE UP TO 2.5MG/DAY Conjugated Estrogens (Premarin) 1 Dose/30 Gm Cr, 0.5 GM PV 2XWK PRN for IRRITATION, (Reported) MONDAYS AND WEDNESDAYS Cyclobenzaprine HCl (Cyclobenzaprine HCl) 10 Mg Tab, 10 MG PO TID PRN for MUSCLE SPASMS, (Reported) Ipratropium/Albuterol Sulfate (Combivent Respimat 20-100 Mcg) 1 Aer Aer, 1 PUFF INH QID PRN for SOB/WHEEZING, (Reported) Ipratropium/Albuterol Sulfate (Iprat-Albut 0.5-3(2.5) mg/3 ml) 1 Luis Luis, 1 LUIS INH Q6H PRN for SHORTNESS OF BREATH, (Reported) Lidocaine (Lidocaine) 4 % Cre, 1 DOSE TOP Q8H PRN for PAIN, (Reported) USES ON KNEES Magnesium Carb/Aluminum Hydrox (Gaviscon Es Tablet Chew) 1 Chw Chw, 1 CHW PO BID PRN for HEARTBURN, (Reported) Ondansetron (Ondansetron Odt) 4 Mg Tab, 4 MG PO Q4H PRN for NAUSEA, (Reported) Oxycodone HCl/Acetaminophen (Oxycodon-Acetaminophen 7.5-325) 1 Each Tablet, 1 TAB PO Q6H PRN for PAIN, (Reported) Allergies Coded Allergies: risperidone (Verified Allergy, Intermediate, LEGS JERK, SWELLING, 08/30/18) tetracycline (Verified Allergy, Mild, VOMITING, RASH, 08/30/18) haloperidol (Verified Allergy, Unknown, unsure, 08/30/18) buspirone (Verified Adverse Reaction, Intermediate, HEART POUNDING, 08/30/18) methocarbamol (Verified Adverse Reaction, Intermediate, LEGS TINGLING, 08/30/18) trazodone (Verified Adverse Reaction, Intermediate, "REAL SICK", 08/30/18) ibuprofen (Verified Adverse Reaction, Mild, VOMITING, 08/30/18) tramadol (Verified Adverse Reaction, Mild, nausea, 08/30/18) zafirlukast (Verified Adverse Reaction, Mild, ACCOLATE - MOTION SICKNESS, 08/30/18) Past Medical History Medical History Hypertension, hypothyroidism, COPD not on home oxygen, obstructive sleep apnea with CPAP use at home, GERD, schizoaffective disorder, chronic kidney disease, irritable bowel syndrome, urge incontinence, hyperlipidemia, nonalcoholic fatty liver disease, vitamin D deficiency, chronic back pain, hemorrhoids, mood disorder, anxiety Surgical History Laparoscopic cholecystectomy, exploratory laparoscopy with lysis of adhesions recently, right breast biopsy, laparoscopic incisional hernia repair, cystoscopic nephrolithiasis removal, surgery on left foot, replacement of previous mesh in midline, colonoscopy with 2 small cecal polyps noted and extensive diverticulosis Family History One brother, sister and mom has diabetes, 3 sisters have cancer Social History * Smoker: other (smoked one pack per day for 20 years quit 2-3 months ago) Alcohol: Denies Drugs: denies Review of Systems Other systems Negative for 10 systems except as noted under history of present illness Physical Examination General Exam: Positive: Alert, Cooperative, Other (slightly diaphoretic) Eye Exam: Positive: PERRLA ENT Exam: Positive: Mucous membr. moist/pink Chest Exam: Positive: Clear to auscultation; Negative: Rales, Rhonchi, Wheezing Heart Exam: Positive: Tachycardic, Regular Rhythm, Normal S1, Normal S2 Abdomen Exam: Positive: BS Hypoactive, Soft, Tenderness, Other (no guarding or rigidity, no rebound tenderness. Most tender in left lower quadrant.) Extremity Exam: Positive: Normal pulses, Other (brisk capillary refill less than 1 second. Extremities are warm. No cyanosis/mottling) Skin Exam: Positive: Other skin issue (slightly diaphoretic.) Neuro Exam: Positive: Other (awake, alert, oriented 3. Answering questions appropriately. Moving all 4 extremities) Psych Exam: Positive: Mental status NL Vital Signs Vital Signs Date Time Temp Pulse Resp B/P (MAP) Pulse Ox O2 Delivery O2 Flow Rate FiO2 08/30/18 18:32 104 23 109/64 (79) 92 Room Air 08/30/18 18:15 101.5 Laboratory Data Labs 24H Laboratory Tests 2 08/30/18 09:48: Immature Granulocyte % (Auto) 0.4, White Blood Count 9.0, Red Blood Count 4.42, Hemoglobin 12.9, Hematocrit 40.9, Mean Corpuscular Volume 92.5, Mean Corpuscular Hemoglobin 29.2, Mean Corpuscular Hemoglobin Concent 31.5L, Red Cell Distribution Width 13.6, Platelet Count 234, Neutrophils (%) (Auto) 56.3, Lymphocytes (%) (Auto) 29.5, Monocytes (%) (Auto) 11.3H, Eosinophils (%) (Auto) 1.9, Basophils (%) (Auto) 0.6, Neutrophils # (Auto) 5.1, Lymphocytes # (Auto) 2.7, Monocytes # (Auto) 1.0H, Eosinophils # (Auto) 0.2, Basophils # (Auto) 0.1, Nucleated Red Blood Cells % (auto) 0.0 08/30/18 10:43: Anion Gap 7L, Glomerular Filtration Rate 43.7L, Calcium Level 7.8L, Aspartate Amino Transf (AST/SGOT) 20, Alanine Aminotransferase (ALT/SGPT) 20, Alkaline Phosphatase 103, Total Bilirubin 0.4, Direct Bilirubin 0.2, Total Protein 6.2L, Albumin 2.4L, Albumin/Globulin Ratio 0.63L, Lipase 90 CBC/BMP Laboratory Tests 08/30/18 09:48 Red Blood Count 4.42, Mean Corpuscular Volume 92.5, Mean Corpuscular Hemoglobin 29.2, Mean Corpuscular Hemoglobin Concent 31.5 L, Red Cell Distribution Width 13.6, Neutrophils (%) (Auto) 56.3, Lymphocytes (%) (Auto) 29.5, Monocytes (%) (Auto) 11.3 H, Eosinophils (%) (Auto) 1.9, Basophils (%) (Auto) 0.6, Neutrophils # (Auto) 5.1, Lymphocytes # (Auto) 2.7, Monocytes # (Auto) 1.0 H, Eosinophils # (Auto) 0.2, Basophils # (Auto) 0.1 08/30/18 10:43 Microbiology Microbiology 08/30/18 Gastrointestinal Tract Panel (PCR) - Final, Complete RAD Interpretation STUDY: x-ray abdomen: Large amount of intestinal content. Correlate clinically for constipation. Assessment/Plan CT scan of abdomen and pelvis: Preliminary report indicates large amount of stool and large intestine as well as possible colitis/edema involving descending colon Sepsis secondary to acute infectious colitis present on admission -Patient's nausea/vomiting and abdominal pain likely related to underlying infectious colitis -Patient was already given 2 L normal saline boluses, I have ordered another liter bolus which will be over the 30 mg/kg necessary for her sepsis -Check lactic acid level stat -Procalcitonin -Blood cultures -IV Zosyn -Aggressive IV hydration -I's and O's -Daily weights -Nothing by mouth except meds -Prn Zofran for nausea, IV morphine for pain -Currently, peripheral circulation appears adequate, extremities are well perfused and mentation is normal. -Case was discussed with Dr. Ziegler from general surgery who will be consulting. Acute on chronic kidney disease stage III likely secondary to dehydration from nausea/vomiting as well as ongoing sepsis -Aggressive IV hydration as noted above -Monitor input and output -Recheck renal function in a.m. Constipation -Patient received enemas in the ERmineral oil and tap water -I will hold off on any further laxatives or bowel stimulants in setting of colitis COPD not in exacerbation -Continue duo nebs as needed Obesity with a BMI of 33.4 Hypothyroidism -IV levothyroxine Hypertension -Hold lisinopril Schizoaffective disorder, mood disorder, anxiety -Continue prn clonazepam, mirtazapine, Seroquel Hyperlipidemia -Hold statin Urge incontinence: -Flomax Obstructive sleep apnea -May use home CPAP if able to bring in same GI/DVT prophylaxis: -PPI/subcutaneous enoxaparin CODE STATUS: -Full code Disposition: -Admit to PCU as an inpatient for further evaluation and management of sepsis secondary to colitis with associated constipation. Anticipated length of stay more than 2 midnights. Anticipate eventual discharge home once medically stable. Plan / VTE VTE Prophylaxis Ordered?: Yes GRAZYNA WOODSON MD Aug 30, 2018 19:18
[2018-08-30] MEDS ORDERED: PANTOPRAZOLE 40MG INJ (PROTONIX) (C9113) IV ONE (19:30)
[2018-08-30 19:39] LABS: INR 1.08; PROTHROMBIN TIME 14.1 SECONDS (12.1-14.4)
[2018-08-30 19:40] LABS: PARTIAL THROMBOPLASTIN TIME 28.9 SECONDS (25.4-37.6)
[2018-08-30] MEDS: QUEtiapine FUMARATE 200 MG TAB PO SCH (20:35)
[2018-08-30] MEDS: MIRTAZAPINE 15 MG TAB PO SCH (20:37)
[2018-08-30] MEDS: ENOXAPARIN 40 MG/0.4 ML SYRINGE (J1650) SC SCH (20:37)
[2018-08-30] MEDS: KCL 20MEQ in NS 1000ML 1,000 ML IV SCH (21:10)
[2018-08-30] MEDS: ACETAMINOPHEN TAB 650MG DOSE (2X325MG) PO PRN (22:41)
[2018-08-31] MEDS: PIPERACILLIN/TAZOBACTAM SOD 3.375 GM in D5W MINI-BAG PLUS 50 ML IV SCH ×4 (00:50→18:15)
[2018-08-31] MEDS: ACETAMINOPHEN TAB 650MG DOSE (2X325MG) PO PRN (03:12)
[2018-08-31] MEDS: KCL 20MEQ in NS 1000ML 1,000 ML IV SCH (03:13)
[2018-08-31 04:23] LABS: HEMATOCRIT 37.1 % (36.0-47.0); HEMOGLOBIN 11.7 g/dl (12.0-15.5); MEAN CORPUSCULAR HGB CONC 31.5 g/dl (32.0-36.5); MEAN CORPUSCULAR VOLUME 95.1 fl (80.0-96.0); PLATELET COUNT, AUTOMATED 215 10^3/uL (150-450); WHITE BLOOD COUNT 9.7 10^3/uL (4.0-10.0)
[2018-08-31 04:59] LABS: ALBUMIN 1.6 GM/DL (3.2-5.2); BILIRUBIN,TOTAL 0.6 MG/DL (0.2-1.0); CALCIUM LEVEL 6.2 MG/DL (8.8-10.2); CREATININE FOR GFR 1.02 MG/DL (0.55-1.30); GLOMERULAR FILTRATION RATE 58.8 (>45); MAGNESIUM LEVEL 2.3 MG/DL (1.8-2.4); POTASSIUM SERUM 4.6 MEQ/L (3.5-5.1); TOTAL PROTEIN 4.6 GM/DL (6.4-8.2)
--- NOTE | 2018-08-31 08:36 | REP ---
REASON: History of obstruction. COMPARISON CT: 08/13/2018 CONTRAST: 100 mL [id number]. The chronic lung base change is status quo. Diffuse low density is seen throughout the hepatic parenchyma consistent with fatty infiltration status quo. The patient is status-post cholecystectomy. The spleen, pancreas, adrenals glands and kidneys are unchanged. The abdominal aorta and paraaortic regions are unchanged. There is mild dilatation within a content filled tranverse and distal descending colon. At the descending colon/sigmoid colon junction there is a transition of luminal narrowing. The sigmoid colon, however is not devoid of content or gas. The small bowel loops are not abnormally dilatated. There is some evidence of wall thickening and mild pericolonic fatty infiltration involving the descending colon up to the level of transition. There is no free fluid or free air in the abdomen or pelvis. There is no change in the osseous structures. IMPRESSION:1. Findings involving the distal colon as described above. Possible luminal narrowing due to adhesion. There is no nyla evidence of colonic obstruction, however there is evidence of descending colitis. The appearance of which is essentially unchanged from the prior exam. 2. Other findings as described above. Electronically Signed by Edil Dela Cruz DO 08/31/2018 02:03 P
[2018-08-31] MEDS ORDERED: LEVOTHYROXINE 100 MCG (0.1MG) VIAL IV SCH (09:00)
[2018-08-31] MEDS: LR 1,000 ML IV SCH ×3 (09:11→19:47)
[2018-08-31] MEDS: MORPHINE 4 MG/ML 1ML VIAL/SYRINGE (J2270) IV PRN ×3 (09:16→20:54)
[2018-08-31] MEDS: PANTOPRAZOLE 40MG INJ (PROTONIX) (C9113) IV SCH (09:16)
[2018-08-31] MEDS: TAMSULOSIN 0.4 MG CAP PO SCH (12:44)
[2018-08-31] MEDS: LIDOCAINE 5% (LIDODERM) PATCH TD SCH (12:44)
[2018-08-31] MEDS: LEVOTHYROXINE 125MCG TABLET (0.125MG) PO SCH (12:45)
[2018-08-31] MEDS: ONDANSETRON 4MG/2ML VIAL (J2405) IV PRN ×2 (12:46→20:55)
[2018-08-31 14:09] LABS: VENOUS BASE EXCESS -7.5 (-2.0-2.0); VENOUS HCO3 18.3 MEQ/L (23.0-27.0); VENOUS O2 SATURATION 72.3 % (60.0-80.0); VENOUS PARTIAL PRESSURE CO2 37.9 mmHg (38.0-50.0); VENOUS PARTIAL PRESSURE O2 39.6 mmHg (30.0-50.0); VENOUS PH 7.301 UNITS (7.330-7.430); VENOUS STANDARD HCO3 17.9 MEQ/L; VENOUS TOTAL CO2 19.4 MEQ/L (24.0-28.0)
[2018-08-31 14:28] LABS: BLOOD UREA NITROGEN 14 MG/DL (7-18); CALCIUM LEVEL 7.1 MG/DL (8.8-10.2); CARBON DIOXIDE LEVEL 20 MEQ/L (21-32); CHLORIDE LEVEL 117 MEQ/L (98-107); GLOMERULAR FILTRATION RATE > 60.0 (>45); GLUCOSE, FASTING 120 MG/DL (70-100); POTASSIUM SERUM 3.9 MEQ/L (3.5-5.1); SODIUM LEVEL 143 MEQ/L (136-145)
[2018-08-31 17:30] VITALS: BP 133/73
--- NOTE | 2018-08-31 20:19 | IPNPDOC ---
Subjective Date Seen The patient was seen on 08/31/18. Subjective Chief Complaint/HPI The patient is a 62-year-old female who presents to the year with complaints of abdominal pain and nausea and vomiting as well as fevers. Events since last encounter Reports she still has abdominal pain as well as bloating - has not passed any gas and has not had a bowel movement. No nausea or vomiting. Low-grade fever l ast night. Per night hospitalist, patient also had some problems with hypotension that resolved after she received fluid bolus. Denies any chest or shortness of breath. Objective Physical Examination General Exam: Positive: Alert, Cooperative, Other (lying in bed. No overt distress.) Eye Exam: Positive: PERRLA ENT Exam: Positive: Mucous membr. moist/pink Chest Exam: Positive: Clear to auscultation; Negative: Rales, Rhonchi, Wheezing Heart Exam: Positive: Regular Rhythm, Normal S1, Normal S2 Abdomen Exam: Positive: Other (protuberant, tympanic to percussion, tender to palpation diffusely but particularly in the left lower quadrant, no guarding or rigidity.) Extremity Exam: Positive: Normal pulses, Other (brisk capillary refill less than 1 second) Skin Exam: Positive: Other skin issue (not diaphoretic, extremities well perfused) Neuro Exam: Positive: Other (awake, alert, oriented 3. Answering questions appropriately. Moving all 4 extremities) Psych Exam: Positive: Mental status NL Assessment /Plan Assessment Sepsis secondary to acute infectious colitis present on admission -Patient's nausea/vomiting and abdominal pain likely related to underlying infectious colitis -Patient received appropriate fluid boluses initially -Lactic acid level was elevated this morning but now resolved. Continue aggressive IV hydration -Procalcitonin was elevated at 0.58 -Blood culturesno growth at 24 hours -GI panel negative -IV Zosyn day 2 -I's and O's -Daily weights -Nothing by mouth except meds -Prn Zofran for nausea, IV morphine for pain -General surgery will be discussing with GI regarding need for surgical i ntervention Acute on chronic kidney disease stage III likely secondary to dehydration from nausea/vomiting as well as ongoing sepsis -Improved with IV fluids. Monitor Non-anion gap metabolic acidosis: -Suspect secondary to hyperchloremia secondary to normal saline as well as some complement of lactic acidosis contributing to metabolic acidosis -IV fluid was switched to lactated Ringer's -Bicarbonate improved this afternoon Constipation -Holding off on laxatives or bowel stimulants in setting of colitis COPD not in exacerbation -Continue duo nebs as needed Obesity with a BMI of 33.4 Hypothyroidism -IV levothyroxine Hypertension -Hold lisinopril Schizoaffective disorder, mood disorder, anxiety -Continue prn clonazepam, mirtazapine, Seroquel Hyperlipidemia -Hold statin Urge incontinence: -Continue Flomax Obstructive sleep apnea -May use home CPAP if able to bring in same GI/DVT prophylaxis: -PPI/subcutaneous enoxaparin Disposition: We will await input from general surgery as regards need for surgical intervention. Continue medical management as noted above Plan/VTE VTE Prophylaxis Ordered?: Yes VS, I&O, 24H, Fishbone Vital Signs/I&O Vital Signs Date Time Temp Pulse Resp B/P (MAP) Pulse Ox O2 Delivery O2 Flow Rate FiO2 08/31/18 17:30 98.8 95 18 133/73 (93) 95 08/31/18 16:00 Room Air 08/31/18 07:00 2.0 Laboratory Data 24H LABS Laboratory Tests 2 08/31/18 04:14: Nucleated Red Blood Cells % (auto) 0.0, Anion Gap 9, Glomerular Filtration Rate 58.8, Lactic Acid Level 2.5*H, Blood Urea Nitrogen 13, Creatinine 1.02, Sodium Level 143, Potassium Level 4.6, Chloride Level 118H, Carbon Dioxide Level 16L, Calcium Level 6.2#L, Aspartate Amino Transf (AST/SGOT) 39H, Alanine Aminotransferase (ALT/SGPT) 24, Alkaline Phosphatase 88, Total Bilirubin 0.6, Total Protein 4.6#L, Albumin 1.6#L, Magnesium Level 2.3, Albumin/Globulin Ratio 0.53L 08/31/18 08:38: Lactic Acid Followup at 4 Hours 2.3*H 08/31/18 13:48: Anion Gap 6L, Glomerular Filtration Rate > 60.0, Lactic Acid Level 1.7, Blood Urea Nitrogen 14, Creatinine 1.00, Sodium Level 143, Potassium Level 3.9, Chlo ride Level 117H, Carbon Dioxide Level 20L, Calcium Level 7.1L, Blood Gas Bicarbonate Standard 17.9, Venous Blood pH 7.301L, Venous Blood Partial Pressure CO2 37.9L, Venous Blood Partial Pressure O2 39.6, Venous Blood Total Carbon Dioxide 19.4L, Venous Blood HCO3 18.3L, Venous Blood Oxygen Saturation 72.3, Venous Blood Base Excess -7.5L 08/31/18 16:55: Bedside Glucose (Misc Panel) 123H 08/31/18 17:49: Bedside Glucose (Misc Panel) 119H CBC/BMP Laboratory Tests 08/31/18 04:14 Red Blood Count 3.90 L, Mean Corpuscular Volume 95.1, Mean Corpuscular Hemoglobin 30.0, Mean Corpuscular Hemoglobin Concent 31.5 L, Red Cell Distribution Width 14.0, Calcium Level 6.2 #L, Aspartate Amino Transf (AST/SGOT) 39 H, Alanine Aminotransferase (ALT/SGPT) 24, Alkaline Phosphatase 88, Total Bilirubin 0.6, Total Protein 4.6 #L, Albumin 1.6 #L 08/31/18 13:48 Calcium Level 7.1 L Microbiology Microbiology 08/30/18 Blood Culture - Preliminary, Resulted No growth after 24 hours . All specim... 08/30/18 Blood Culture - Preliminary, Resulted No growth after 24 hours . All specim... 08/30/18 Gastrointestinal Tract Panel (PCR) - Final, Complete GRAZYNA WOODSON MD Aug 31, 2018 20:19
[2018-08-31] MEDS: MIRTAZAPINE 15 MG TAB PO SCH (20:52)
[2018-08-31] MEDS: ENOXAPARIN 40 MG/0.4 ML SYRINGE (J1650) SC SCH (20:53)
[2018-08-31] MEDS: **NOTE PATIENT COMMENT** MISC XX SCH (21:00)
[2018-08-31] MEDS: QUEtiapine FUMARATE 200 MG TAB PO SCH (21:47)
[2018-08-31 22:00] VITALS: BP 116/68
[2018-09-01] MEDS: PIPERACILLIN/TAZOBACTAM SOD 3.375 GM in D5W MINI-BAG PLUS 50 ML IV SCH ×4 (00:38→18:22)
[2018-09-01] MEDS: ONDANSETRON 4MG/2ML VIAL (J2405) IV PRN ×2 (04:36→11:18)
[2018-09-01] MEDS: LR 1,000 ML IV SCH ×3 (04:36→17:05)
[2018-09-01] MEDS: KETOROLAC 30 MG/ML VIAL (J1885) IV PRN ×3 (04:37→21:58)
[2018-09-01 06:00] VITALS: BP 124/52
[2018-09-01] MEDS: LEVOTHYROXINE 125MCG TABLET (0.125MG) PO SCH (06:09)
[2018-09-01 06:34] LABS: HEMATOCRIT 32.4 % (36.0-47.0); HEMOGLOBIN 10.4 g/dl (12.0-15.5); MEAN CORPUSCULAR HEMOGLOBIN 29.7 pg (27.0-33.0); MEAN CORPUSCULAR HGB CONC 32.1 g/dl (32.0-36.5); MEAN CORPUSCULAR VOLUME 92.6 fl (80.0-96.0); PLATELET COUNT, AUTOMATED 206 10^3/uL (150-450)
[2018-09-01 07:05] LABS: ALBUMIN 1.4 GM/DL (3.2-5.2); ALT/SGPT 20 U/L (12-78); BILIRUBIN,TOTAL 0.5 MG/DL (0.2-1.0); BLOOD UREA NITROGEN 12 MG/DL (7-18); CALCIUM LEVEL 6.8 MG/DL (8.8-10.2); CARBON DIOXIDE LEVEL 20 MEQ/L (21-32); CHLORIDE LEVEL 115 MEQ/L (98-107); CREATININE FOR GFR 0.84 MG/DL (0.55-1.30); GLOMERULAR FILTRATION RATE > 60.0 (>45); GLUCOSE, FASTING 91 MG/DL (70-100); MAGNESIUM LEVEL 2.2 MG/DL (1.8-2.4); PHOSPHORUS LEVEL 1.9 MG/DL (2.5-4.9); POTASSIUM SERUM 3.7 MEQ/L (3.5-5.1); SODIUM LEVEL 143 MEQ/L (136-145); TOTAL PROTEIN 4.7 GM/DL (6.4-8.2)
[2018-09-01 07:45] LABS: LYMPHOCYTES 43 % (16-52); NEUTROPHILS 57 % (35-75)
[2018-09-01 07:46] LABS: ANISOCYTOSIS 2+; PLATELET ESTIMATE NORMAL (NORMAL)
[2018-09-01] MEDS: PANTOPRAZOLE 40MG INJ (PROTONIX) (C9113) IV SCH (08:45)
[2018-09-01] MEDS: LIDOCAINE 5% (LIDODERM) PATCH TD SCH (08:46)
[2018-09-01] MEDS ORDERED: POTASSIUM PHOSPHATE INJ 20 MMOL in D5W 250 ML IV ONE (09:00)
--- NOTE | 2018-09-01 09:11 | CR ---
DATE OF CONSULTATION: 08/31/2018 REASON FOR CONSULTATION: Abdominal pain with nausea and vomiting and possible colitis. HISTORY: The patient is a 62-year-old woman known to me from a prior admission. I had admitted her in July of 2018 on the . She had at that time presented with abdominal pain. She had had some nausea and vomiting as well as some diarrhea. A CT scan suggested some mildly distended fluid-filled small bowel in the mid abdomen, worrisome for a bowel obstruction. She was also noted to have some mild thickening of the descending colon. She was admitted and initially observed. She subsequently developed some increased abdominal distension and a nasogastric tube was placed. She improved but had a fairly prolonged hospital course with waxing and waning symptoms. Ultimately she underwent a laparoscopy on the 06 of August that revealed a few minimal adhesions without any definite small bowel obstruction. There did appear to be some inflammation of the descending colon. She tolerated a diet and was discharged home. She had been seen and appeared to be doing acceptably. She also had a followup visit with her primary provider on the 18 of August. The patient presented to the emergency department on the afternoon of the 30 of August complaining of return of abdominal pain with some nausea and vomiting. She also complained of a fever. She has noticed some recent red blood in her stool. She was evaluated in the emergency department and admitted by the hospitalist for management. She did undergo evaluation with a CT scan of the abdomen and pelvis which suggested a possible narrowing in the distal descending colon but no definite small bowel obstruction and no free air or free fluid. I have been asked to evaluate the patient regarding her abdominal pain and the colonic abnormality. ALLERGIES: Are listed to multiple medications including: BUSPIRONE, HALDOL, IBUPROFEN, METHOCARBAMOL, RISPERIDONE, TETRACYCLINE, TRAMADOL, TRAZODONE, and ZAFIRLUKAST. MEDICATIONS: Are as listed in the medical record. SURGICAL HISTORY: Includes a previous laparoscopic cholecystectomy. She has had a breast biopsy on the right many years ago. A laparoscopic incisional hernia repair was performed in 2014. She had a laparoscopic lysis of adhesions in 2015. She had a renal stone removed cystoscopically in 2016. She had surgery on her left foot in 2016. An EGD was performed in August of 2017. She had a colonoscopy done in June of 2018 which revealed extensive diverticulosis and two small cecal polyps. A vaginal hysterectomy was performed many years ago. She had a recent diagnostic laparoscopy with a minimal lysis of adhesions in July of 2018. MEDICAL HISTORY: Her medical history is significant for chronic back pain that is quite limiting. She has hypothyroidism and hypertension and headaches. She has chronic obstructive pulmonary disease as well as a history of a sleep apnea. She has gastroesophageal reflux. She has been noted to have hemorrhoids and does have some rectal bleeding. She has chronic kidney disease stage 2 to 3 and has a history of anxiety and schizoaffective disorder. SOCIAL HISTORY: The patient denies significant alcohol intake, but is a regular smoker. FAMILY HISTORY: Her family history is noncontributory. REVIEW OF SYSTEMS: Shows no history of chest pain or palpitations. She has no respiratory symptoms and no history of deep venous thrombosis (DVT) or pulmonary embolus. Her chronic back pain she reports that she basically lives with. PHYSICAL EXAMINATION: Reveals a pleasant woman lying quietly on the hospital stretcher. Recent vital signs showed a temperature of 97.6, pulse of 88, respirations of 16 and a blood pressure of 99/55. She did have a fever of 102.1 on the afternoon of well here in the emergency department. She is alert and oriented. Skin: Is warm and dry at this time. Sclerae are anicteric. The neck is supple. To me she complains primarily of pain across the lower abdomen and also in the left lower quadrant. Heart exam shows a regular rhythm. The lungs are without wheezes or rhonchi. The abdomen is protuberant. She has some scarring consistent with her prior surgery. There is some tympany to percussion. The abdomen is soft. She has some tenderness particularly in the suprapubic area extending into the lowest portions of both lower quadrants, more so on the left. There is some mild tenderness also in the left lower quadrant. The upper portions of the abdomen are basically benign to palpation. Extremities are without significant edema. Her laboratory studies today show a white count of 10, hemoglobin 12 and a hematocrit of 37 with platelet count of 215. Chemistry profile today shows a sodium of 143, potassium 4.6, chloride 118, CO2 of 16, BUN of 13, creatinine 1 and a glucose of 134. Her lactic acid was 2.3 and 2.5 earlier in the morning but is 1.7 later today. Her liver function tests are not significantly abnormal. Her total protein was only 4.6 with an albumin of 1.6. PT/PTT and INR at time of presentation were normal. CT scan of the abdomen and pelvis I reviewed personally. She has some stool in the left side of the colon. There still appears to be some mild inflammation in the wall of the descending colon particularly distally. There is a suggestion of some possible narrowing in the area of the descending to sigmoid junction. There is no sign of small-bowel obstruction. She has no free air and no free fluid. IMPRESSION: The patient returned again with abdominal pain and nausea and vomiting. Her history of rectal bleeding with some inflammatory changes in the descending colon and now a suggestion of some narrowing at the junction of the descending and sigmoid colons makes me think that this may represent a bout of ischemic colitis. Her pain seems somewhat out of proportion to the CT findings and the pain is primarily across the low abdomen and not directly in association with where her colonic inflammation has been. She did have a laparoscopy a month ago that showed no significant abnormalities within the abdomen other than perhaps some mild inflammation in the descending colon. RECOMMENDATIONS: At this point I think supportive care and antibiotics given her fever would be appropriate. She has had a bowel movement today and is passing some flatus so she clearly does not have an obstruction. I think consulting Dr. Ye of gastroenterology may be appropriate. He had colonoscoped her in June of this year and reported only some diverticulosis and a couple of small polyps but no acute inflammatory changes were noted. I will follow along while we see how she progresses with medical management.
[2018-09-01] MEDS: MORPHINE 4 MG/ML 1ML VIAL/SYRINGE (J2270) IV PRN ×4 (09:48→17:17)
[2018-09-01] MEDS: TAMSULOSIN 0.4 MG CAP PO SCH (13:01)
[2018-09-01 14:00] VITALS: BP 114/66
--- NOTE | 2018-09-01 20:31 | IPNPDOC ---
Subjective Date Seen The patient was seen on 09/01/18. Subjective Chief Complaint/HPI The patient is a 62-year-old female who presents to the year with complaints of abdominal pain and nausea and vomiting as well as fevers. Events since last encounter Patient reports she is passing some liquid stools but still having quite a bit of abdominal pain. No solid stools. Denies any nausea or vomiting. No overnight fevers. No chest pain or shortness of breath. Objective Physical Examination General Exam: Positive: Cooperative, Other (lying in bed. No overt distress.) Eye Exam: Positive: PERRLA ENT Exam: Positive: Mucous membr. moist/pink Chest Exam: Positive: Clear to auscultation; Negative: Rales, Rhonchi, Wheezing Heart Exam: Positive: Regular Rhythm, Normal S1, Normal S2 Abdomen Exam: Positive: Other (a little protuberant but softer than yesterday. Abdominal pain to palpation also seems a little less compared to yesterday. Nonetheless, still quite tender in the left lower quadrant. No guarding or rigidity. All sounds are present.) Extremity Exam: Positive: Normal pulses Neuro Exam: Positive: Other (awake, alert, oriented 3. Answering questions appropriately. Moving all 4 extremities) Psych Exam: Positive: Mental status NL Assessment /Plan Assessment Sepsis secondary to acute infectious colitis present on admission -Patient's nausea/vomiting and abdominal pain likely related to underlying infectious colitis -Patient received appropriate fluid boluses initially -Lactic acid level was elevated this morning but now resolved. Continue aggressive IV hydration -Procalcitonin was elevated at 0.58 -Blood culturesno growth at 24 hours -GI panel negative -IV Zosyn day 3 -I's and O's -Daily weights -Nothing by mouth except meds -Prn Zofran for nausea, IV morphine for pain -General surgery recommended consulting GI Acute on chronic kidney disease stage III likely secondary to dehydration from nausea/vomiting as well as ongoing sepsis -Improved with IV fluids. Monitor Non-anion gap metabolic acidosis: -Suspect secondary to hyperchloremia secondary to normal saline as well as some complement of lactic acidosis contributing to metabolic acidosis -IV fluid was switched to lactated Ringer's -Bicarbonate improved -Hyperchloremic improving as well Constipation -Holding off on laxatives or bowel stimulants in setting of colitis COPD not in exacerbation -Continue duo nebs as needed Obesity with a BMI of 33.4 Hypothyroidism -IV levothyroxine Hypertension -Hold lisinopril Schizoaffective disorder, mood disorder, anxiety -Continue prn clonazepam, mirtazapine, Seroquel Hyperlipidemia -Hold statin Urge incontinence: -Continue Flomax Obstructive sleep apnea -May use home CPAP if able to bring in same GI/DVT prophylaxis: -PPI/subcutaneous enoxaparin Plan/VTE VTE Prophylaxis Ordered?: Yes VS, I&O, 24H, Fishbone Vital Signs/I&O Vital Signs Date Time Temp Pulse Resp B/P (MAP) Pulse Ox O2 Delivery O2 Flow Rate FiO2 09/01/18 17:27 20 09/01/18 14:00 98.3 84 114/66 (82) 94 08/31/18 16:00 Room Air 08/31/18 07:00 2.0 I&O- Last 24 Hours up to 6 AM 09/01/18 06:00 Intake Total 950 ml Output Total 400 ml Balance 550 ml Laboratory Data 24H LABS Laboratory Tests 2 09/01/18 00:37: Bedside Glucose (Misc Panel) 97 09/01/18 05:35: Nucleated Red Blood Cells % (auto) 0.0, Neutrophils 57, Lymphocytes (Manual) 43, Platelet Estimate NORMAL, Red Blood Cell Morphology , Anisocytosis 2+, Anion Gap 8, Glomerular Filtration Rate > 60.0, Blood Urea Nitrogen 12, Creatinine 0.84, Sodium Level 143, Potassium Level 3.7, Chloride Level 115H, Carbon Dioxide Level 20L, Calcium Level 6.8L, Phosphorus Level 1.9L, Aspartate Amino Transf (AST/SGOT) 24, Alanine Aminotransferase (ALT/SGPT) 20, Alkaline Phosphatase 71, Total Bilirubin 0.5, Total Protein 4.7L, Albumin 1.4L, Magnesium Level 2.2, Albumin/Globulin Ratio 0.42L 09/01/18 06:06: Bedside Glucose (Misc Panel) 95 09/01/18 12:03: Bedside Glucose (Misc Panel) 107 CBC/BMP Laboratory Tests 09/01/18 05:35 Red Blood Count 3.50 L, Mean Corpuscular Volume 92.6, Mean Corpuscular Hemoglo bin 29.7, Mean Corpuscular Hemoglobin Concent 32.1, Red Cell Distribution Width 14.2, Calcium Level 6.8 L, Phosphorus Level 1.9 L, Aspartate Amino Transf (AST/SGOT) 24, Alanine Aminotransferase (ALT/SGPT) 20, Alkaline Phosphatase 71, Total Bilirubin 0.5, Total Protein 4.7 L, Albumin 1.4 L Microbiology Microbiology 08/30/18 Blood Culture - Preliminary, Resulted No Growth after 48 hours. All Specime... 08/30/18 Blood Culture - Preliminary, Resulted No Growth after 48 hours. All Specime... 09/01/18 Stool Occult Blood (RHIANNA) - Final, Complete 09/01/18 Stool Occult Blood (RHIANNA) - Final, Complete 09/01/18 Stool Occult Blood (RHIANNA) - Final, Complete 08/30/18 Gastrointestinal Tract Panel (PCR) - Final, Complete GRAZYNA WOODSON MD Sep 01, 2018 20:31
[2018-09-01] MEDS: **NOTE PATIENT COMMENT** MISC XX SCH (21:00)
[2018-09-01] MEDS: ENOXAPARIN 40 MG/0.4 ML SYRINGE (J1650) SC SCH (21:57)
[2018-09-01] MEDS: MIRTAZAPINE 15 MG TAB PO SCH (21:58)
[2018-09-01 22:00] VITALS: BP 121/63
[2018-09-01] MEDS: QUEtiapine FUMARATE 200 MG TAB PO SCH (22:37)
[2018-09-02] MEDS: PIPERACILLIN/TAZOBACTAM SOD 3.375 GM in D5W MINI-BAG PLUS 50 ML IV SCH ×4 (01:23→17:56)
[2018-09-02] MEDS: MORPHINE 4 MG/ML 1ML VIAL/SYRINGE (J2270) IV PRN (05:04)
[2018-09-02] MEDS: LR 1,000 ML IV SCH ×3 (05:04→13:53)
[2018-09-02 06:00] VITALS: BP 142/71
[2018-09-02 06:14] LABS: BASO % 0.7 % (0.0-1.0); EOS # 0.2 10^3/uL (0.0-0.50); EOS % 4.1 % (0.0-3.0); HEMATOCRIT 32.3 % (36.0-47.0); HEMOGLOBIN 10.4 g/dl (12.0-15.5); LYMPH # 1.6 10^3/uL (1.5-4.5); LYMPH % 36.4 % (24.0-44.0); MEAN CORPUSCULAR HEMOGLOBIN 29.4 pg (27.0-33.0); MEAN CORPUSCULAR HGB CONC 32.2 g/dl (32.0-36.5); MEAN CORPUSCULAR VOLUME 91.2 fl (80.0-96.0); MONO # 0.6 10^3/uL (0.0-0.8); MONO % 14.6 % (0.0-5.0); NEUTROPHILS # 1.9 10^3/uL (1.8-7.7); NEUTROPHILS % 42.8 % (36.0-66.0); PLATELET COUNT, AUTOMATED 207 10^3/uL (150-450); RED BLOOD COUNT 3.54 10^6/uL (4.00-5.40); WHITE BLOOD COUNT 4.4 10^3/uL (4.0-10.0)
[2018-09-02] MEDS: LEVOTHYROXINE 125MCG TABLET (0.125MG) PO SCH (06:21)
[2018-09-02 06:39] LABS: ALBUMIN 1.4 GM/DL (3.2-5.2); ALT/SGPT 16 U/L (12-78); BILIRUBIN,TOTAL 0.4 MG/DL (0.2-1.0); BLOOD UREA NITROGEN 10 MG/DL (7-18); CALCIUM LEVEL 7.1 MG/DL (8.8-10.2); CARBON DIOXIDE LEVEL 23 MEQ/L (21-32); CHLORIDE LEVEL 115 MEQ/L (98-107); CREATININE FOR GFR 0.87 MG/DL (0.55-1.30); GLOMERULAR FILTRATION RATE > 60.0 (>45); GLUCOSE, FASTING 70 MG/DL (70-100); PHOSPHORUS LEVEL 2.1 MG/DL (2.5-4.9); POTASSIUM SERUM 3.4 MEQ/L (3.5-5.1); SODIUM LEVEL 143 MEQ/L (136-145); TOTAL PROTEIN 4.6 GM/DL (6.4-8.2)
[2018-09-02] MEDS: ONDANSETRON 4MG/2ML VIAL (J2405) IV PRN ×3 (07:08→21:22)
[2018-09-02 08:00] VITALS: BP 114/61
[2018-09-02] MEDS ORDERED: POTASSIUM CHLORIDE 10 MEQ SR TABLET PO ONE (08:45)
[2018-09-02] MEDS: PANTOPRAZOLE 40MG INJ (PROTONIX) (C9113) IV SCH (08:54)
[2018-09-02] MEDS: LIDOCAINE 5% (LIDODERM) PATCH TD SCH (08:55)
[2018-09-02] MEDS: clonazePAM 0.5 MG TAB PO PRN (09:45)
--- NOTE | 2018-09-02 11:13 | IPNPDOC ---
Text Note Date of Service The patient was seen on 09/02/18. NOTE Subjective: Patient seen and examined at bedside. Still complains of abdominal pain and diarrhea. No other new medical complaints. Objective: General: NAD, lying comfortably in bed HEENT: NC/AT, edentulous Lungs: CTA B/L Heart: +S1S2, RRR Abd: soft, tender LLQ, +BS Ext: no edema A/P: 62 yo female for diarrhea, abdominal pain: #Sepsis secondary to acute infectious colitis present on admission -Patient's nausea/vomiting and abdominal pain likely related to underlying inf ectious colitis -Patient received appropriate fluid boluses initially -Lactic acidosis resolved - NPO/IVF -Procalcitonin was elevated at 0.58 -Blood culturesno growth at 24 hours -GI panel negative -IV Zosyn day 4 -I's and O's -Daily weights -Nothing by mouth except meds/ice chips -Prn Zofran for nausea, IV morphine for pain -General surgery recommended consulting GI - GI c/s pending #JB/CKDIII - likely secondary to dehydration from nausea/vomiting as well as ongoing sepsis -Improved with IV fluids. Monitor #Non-anion gap metabolic acidosis: -Suspect secondary to hyperchloremia secondary to normal saline as well as some complement of lactic acidosis contributing to metabolic acidosis -IV fluid was switched to lactated Ringer's -Bicarbonate improved -Hyperchloremic improving as well #COPD not in exacerbation -Continue duo nebs as needed #Obesity with a BMI of 33.4 #Hypothyroidism -IV levothyroxine #Hypertension -Hold lisinopril #Schizoaffective disorder, mood disorder, anxiety -Continue prn clonazepam, mirtazapine, Seroquel Hyperlipidemia -Hold statin #Urge incontinence: -Continue Flomax #Obstructive sleep apnea -May use home CPAP #GI/DVT prophylaxis: -PPI/subcutaneous enoxaparin Dispo: Pending GI c/s, still NPO/IVF VS,Fishbone, I+O VS, Fishbone, I+O Laboratory Tests 09/02/18 05:33 Red Blood Count 3.54 L, Mean Corpuscular Volume 91.2, Mean Corpuscular Hemoglobin 29.4, Mean Corpuscular Hemoglobin Concent 32.2, Red Cell Distribution Width 14.0, Neutrophils (%) (Auto) 42.8, Lymphocytes (%) (Auto) 36.4, Monocytes (%) (Auto) 14.6 H, Eosinophils (%) (Auto) 4.1 H, Basophils (%) (Auto) 0.7, Neutrophils # (Auto) 1.9, Lymphocytes # (Auto) 1.6, Monocytes # (Auto) 0.6, Eosinophils # (Auto) 0.2, Basophils # (Auto) 0.0, Calcium Level 7.1 L, Phosphorus Level 2.1 L, Aspartate Amino Transf (AST/SGOT) 15, Alanine Aminotransferase (ALT/SGPT) 16, Alkaline Phosphatase 82, Total Bilirubin 0.4, Total Protein 4.6 L, Albumin 1.4 L Vital Signs Date Time Temp Pulse Resp B/P (MAP) Pulse Ox O2 Delivery O2 Flow Rate FiO2 09/02/18 08:00 97.6 75 18 114/61 (78) 94 08/31/18 16:00 Room Air 08/31/18 07:00 2.0 I&O- Last 24 Hours up to 6 AM 09/02/18 06:00 Intake Total 3050 ml Output Total 1002 ml Balance 2048 ml JESSE LEIGH MD Sep 02, 2018 11:13
[2018-09-02] MEDS ORDERED: GLUCAGON FOR INJ 1 MG VIAL (J1610) SC PRN (12:15)
[2018-09-02] MEDS ORDERED: DEXTROSE 50% 50 ML SYRINGE IV PRN (12:15)
[2018-09-02] MEDS ORDERED: GLUCOSE 4 GM CHEW TABLET PO PRN (12:15)
[2018-09-02] MEDS: TAMSULOSIN 0.4 MG CAP PO SCH (12:30)
[2018-09-02 14:00] VITALS: BP 125/67
[2018-09-02] MEDS ORDERED: MOM 30ML SUSPENSION UDC PO ONE (15:45)
[2018-09-02] MEDS ORDERED: GOLYTELY SOLN 4000 ML BTL PO ONE (16:00)
[2018-09-02] MEDS: **NOTE PATIENT COMMENT** MISC XX SCH (21:00)
[2018-09-02] MEDS: MIRTAZAPINE 15 MG TAB PO SCH (21:22)
[2018-09-02] MEDS: ENOXAPARIN 40 MG/0.4 ML SYRINGE (J1650) SC SCH (21:22)
[2018-09-02] MEDS: QUEtiapine FUMARATE 200 MG TAB PO SCH (21:22)
[2018-09-02 22:00] VITALS: BP 125/81
[2018-09-03] VITALS (8 sets, daily range): BP systolic 130–156; BP diastolic 68–81
[2018-09-03] MEDS: PIPERACILLIN/TAZOBACTAM SOD 3.375 GM in D5W MINI-BAG PLUS 50 ML IV SCH ×4 (00:02→18:29)
[2018-09-03] MEDS: LR 1,000 ML IV SCH ×2 (00:02→10:06)
[2018-09-03] MEDS: KETOROLAC 30 MG/ML VIAL (J1885) IV PRN ×3 (01:50→20:22)
[2018-09-03] MEDS ORDERED: GOLYTELY SOLN 4000 ML BTL PO ONE (05:00)
[2018-09-03] MEDS: LEVOTHYROXINE 125MCG TABLET (0.125MG) PO SCH (06:40)
[2018-09-03] MEDS: PANTOPRAZOLE 40MG INJ (PROTONIX) (C9113) IV SCH (08:13)
[2018-09-03] MEDS: ONDANSETRON 4MG/2ML VIAL (J2405) IV PRN ×2 (08:13→22:05)
[2018-09-03] MEDS: clonazePAM 0.5 MG TAB PO PRN (08:14)
[2018-09-03] MEDS: LIDOCAINE 5% (LIDODERM) PATCH TD SCH (08:15)
--- NOTE | 2018-09-03 08:42 | IPNPDOC ---
Text Note Date of Service The patient was seen on 09/03/18. NOTE Subjective: Patient seen and examined at bedside. Still complains of abdominal pain and diarrhea. She has completed her bowel prep. No new medical complaints. Objective: General: NAD, lying comfortably in bed, in good spirits today HEENT: NC/AT, edentulous Lungs: CTA B/L Heart: +S1S2, RRR Abd: soft, tender LLQ, +BS Ext: no edema A/P: 62 yo female for diarrhea, abdominal pain: #Sepsis/abdominal pain/N/V/D - secondary to acute infectious colitis present on admission -Patient's nausea/vomiting and abdominal pain likely related to underlying infectious colitis -Lactic acidosis resolved -Procalcitonin was elevated at 0.58 -BCx NTD -GI panel negative -IV Zosyn day 5 -I's and O's -Daily weights -Nothing by mouth except meds/ice chips -Prn Zofran for nausea, IV morphine for pain - GI c/s appreciated - plan for colonoscopy today #JB/CKDIII - likely secondary to dehydration from nausea/vomiting as well as ongoing sepsis -Improved with IV fluids. Monitor #Non-anion gap metabolic acidosis: -Suspect secondary to hyperchloremia secondary to normal saline as well as some complement of lactic acidosis contributing to metabolic acidosis -IV fluid was switched to lactated Ringer's -Bicarbonate improved -Hyperchloremic improving as well #COPD not in exacerbation -Continue duo nebs as needed #Obesity with a BMI of 33.4 #Hypothyroidism -IV levothyroxine #Hypertension -Hold lisinopril #Schizoaffective disorder, mood disorder, anxiety -Continue prn clonazepam, mirtazapine, Seroquel Hyperlipidemia -Hold statin #Urge incontinence: -Continue Flomax #Obstructive sleep apnea -May use home CPAP #GI/DVT prophylaxis: -PPI/subcutaneous enoxaparin Dispo: plan for colonoscopy today, f/u GI, IV Abx, NPO/IVF VS,Fishbone, I+O VS, Fishbone, I+O Vital Signs Date Time Temp Pulse Resp B/P (MAP) Pulse Ox O2 Delivery O2 Flow Rate FiO2 09/03/18 06:00 97.9 74 20 156/80 (105) 97 08/31/18 16:00 Room Air 08/31/18 07:00 2.0 I&O- Last 24 Hours up to 6 AM 09/03/18 06:00 Intake Total 1520 ml Output Total 450 ml Balance 1070 ml JESSE LEIGH MD Sep 03, 2018 08:42
[2018-09-03 08:43] LABS: BASO # 0.1 10^3/uL (0.0-0.2); BASO % 1.5 % (0.0-1.0); EOS # 0.1 10^3/uL (0.0-0.50); EOS % 1.7 % (0.0-3.0); HEMATOCRIT 34.7 % (36.0-47.0); HEMOGLOBIN 11.2 g/dl (12.0-15.5); LYMPH # 1.6 10^3/uL (1.5-4.5); LYMPH % 33.5 % (24.0-44.0); MEAN CORPUSCULAR HEMOGLOBIN 29.7 pg (27.0-33.0); MEAN CORPUSCULAR HGB CONC 32.3 g/dl (32.0-36.5); MONO # 0.7 10^3/uL (0.0-0.8); MONO % 14.1 % (0.0-5.0); NEUTROPHILS # 2.2 10^3/uL (1.8-7.7); NEUTROPHILS % 45.6 % (36.0-66.0); PLATELET COUNT, AUTOMATED 217 10^3/uL (150-450); RED BLOOD COUNT 3.77 10^6/uL (4.00-5.40); WHITE BLOOD COUNT 4.7 10^3/uL (4.0-10.0)
[2018-09-03] MEDS: MIRALAX *UNIT DOSE* 17GM PACKET PO SCH (09:00)
[2018-09-03] MEDS: TAMSULOSIN 0.4 MG CAP PO SCH (11:28)
[2018-09-03 12:35] LABS: ALBUMIN 1.6 GM/DL (3.2-5.2); ALT/SGPT 16 U/L (12-78); BILIRUBIN,TOTAL 0.3 MG/DL (0.2-1.0); BLOOD UREA NITROGEN 5 MG/DL (7-18); CALCIUM LEVEL 6.9 MG/DL (8.8-10.2); CARBON DIOXIDE LEVEL 23 MEQ/L (21-32); CHLORIDE LEVEL 112 MEQ/L (98-107); CREATININE FOR GFR 0.73 MG/DL (0.55-1.30); GLOMERULAR FILTRATION RATE > 60.0 (>45); GLUCOSE, FASTING 78 MG/DL (70-100); POTASSIUM SERUM 3.2 MEQ/L (3.5-5.1); SODIUM LEVEL 143 MEQ/L (136-145); TOTAL PROTEIN 5.1 GM/DL (6.4-8.2)
[2018-09-03] MEDS ORDERED: PROPOFOL 200 MG/20 ML VIAL As Ordered ONE (15:30)
[2018-09-03] MEDS ORDERED: ONDANSETRON 4MG/2ML VIAL (J2405) As Ordered ONE (15:48)
[2018-09-03] MEDS ORDERED: ONDANSETRON 4MG/2ML VIAL (J2405) IV ONE (15:50)
--- NOTE | 2018-09-03 16:00 | ROOR ---
Patient Name: Gabbi Guzman Procedure Date: 09/03/2018 3:04 PM Date of : 1955 Age: 62 Room: [facility] Gender: Female Note Status: Finalized Procedure: Colonoscopy Indications: Abdominal pain in the left lower quadrant, Abnormal CT of the GI tract Providers: Deion MONTES MD Referring MD: 2. Inpatient 2. Inpatient, Simon Ye MD Requesting Provider: Medicines: Monitored Anesthesia Care Complications: No immediate complications. Procedure: Pre-Anesthesia Assessment: - The heart rate, respiratory rate, oxygen saturations, blood pressure, adequacy of pulmonary ventilation, and response to care were monitored throughout the procedure. The Colonoscope was introduced through the anus and advanced to the cecum, identified by appendiceal orifice and ileocecal valve. The colonoscopy was performed without difficulty. The patient tolerated the procedure well. The quality of the bowel preparation was unsatisfactory. Findings: The perianal and digital rectal examinations were normal. Segmental severe inflammation characterized by congestion (edema), friability and mucus was found from 30 to 70 cm proximal to the anus. Biopsies were taken with a cold forceps for histology. A 10 mm polyp was found in the distal sigmoid colon. The polyp was semi-sessile. Biopsies were taken with a cold forceps for histology. The exam was otherwise without abnormality. Impression: - Preparation of the colon was unsatisfactory. - Segmental severe inflammation/edema was found from 30 to 70 cm proximal to the anus consistent with probable ischemic colitis. Biopsied. - One probable 10 mm polyp in the distal sigmoid colon. Biopsied to r/o adenoma. (NOT REMOVED) - The examination was otherwise normal. Recommendation: - Await pathology results for definite diagnosis. - Miralax 1 capful (17 grams) in 8 ounces of water PO daily indefinitely. - Ischemic colitis is typically selflimited condition--continue to observe for clinical improvement. - Pt may follow up with her diploma dental assistant for follow up colonoscopy as OP. (Probable colon polyp that may need to be removed--await path) Deion Montes MD Deion MONTES MD 09/03/2018 3:59:56 PM Electronically signed by Deion MONTES MD Number of Addenda: 0 Note Initiated On: 09/03/2018 3:04 PM Estimated Blood Loss: Estimated blood loss: none.
[2018-09-03] MEDS: MIRTAZAPINE 15 MG TAB PO SCH (20:21)
[2018-09-03] MEDS: QUEtiapine FUMARATE 200 MG TAB PO SCH (20:21)
[2018-09-03] MEDS: NS 1,000 ML IV SCH (20:22)
[2018-09-03] MEDS: **NOTE PATIENT COMMENT** MISC XX SCH (21:00)
[2018-09-03] MEDS: ENOXAPARIN 40 MG/0.4 ML SYRINGE (J1650) SC SCH (21:00)
[2018-09-04] MEDS: PIPERACILLIN/TAZOBACTAM SOD 3.375 GM in D5W MINI-BAG PLUS 50 ML IV SCH ×2 (01:28→06:55)
[2018-09-04 02:00] VITALS: BP 111/62
[2018-09-04 06:00] VITALS: BP 146/75
[2018-09-04] MEDS: LEVOTHYROXINE 125MCG TABLET (0.125MG) PO SCH (06:02)
[2018-09-04] MEDS: clonazePAM 0.5 MG TAB PO PRN ×2 (06:02→17:45)
[2018-09-04] MEDS: ONDANSETRON 4MG/2ML VIAL (J2405) IV PRN ×2 (06:03→13:47)
[2018-09-04] MEDS: KETOROLAC 30 MG/ML VIAL (J1885) IV PRN (06:03)
[2018-09-04 08:19] LABS: HEMATOCRIT 32.4 % (36.0-47.0); HEMOGLOBIN 10.6 g/dl (12.0-15.5); MEAN CORPUSCULAR HEMOGLOBIN 29.3 pg (27.0-33.0); MEAN CORPUSCULAR HGB CONC 32.7 g/dl (32.0-36.5); MEAN CORPUSCULAR VOLUME 89.5 fl (80.0-96.0); PLATELET COUNT, AUTOMATED 264 10^3/uL (150-450); RED BLOOD COUNT 3.62 10^6/uL (4.00-5.40); WHITE BLOOD COUNT 6.6 10^3/uL (4.0-10.0)
[2018-09-04 08:50] LABS: ALBUMIN 1.8 GM/DL (3.2-5.2); ALT/SGPT 16 U/L (12-78); BILIRUBIN,TOTAL 0.3 MG/DL (0.2-1.0); BLOOD UREA NITROGEN 4 MG/DL (7-18); CARBON DIOXIDE LEVEL 23 MEQ/L (21-32); CHLORIDE LEVEL 112 MEQ/L (98-107); CREATININE FOR GFR 0.75 MG/DL (0.55-1.30); GLOMERULAR FILTRATION RATE > 60.0 (>45); GLUCOSE, FASTING 86 MG/DL (70-100); MAGNESIUM LEVEL 1.9 MG/DL (1.8-2.4); POTASSIUM SERUM 3.4 MEQ/L (3.5-5.1); SODIUM LEVEL 142 MEQ/L (136-145); TOTAL PROTEIN 4.8 GM/DL (6.4-8.2)
[2018-09-04] MEDS: MIRALAX *UNIT DOSE* 17GM PACKET PO SCH (09:00)
[2018-09-04] MEDS: PANTOPRAZOLE 40MG INJ (PROTONIX) (C9113) IV SCH (09:31)
[2018-09-04] MEDS: LIDOCAINE 5% (LIDODERM) PATCH TD SCH (09:31)
[2018-09-04 10:00] VITALS: BP 148/66
[2018-09-04] MEDS ORDERED: POTASSIUM CHLORIDE 10 MEQ SR TABLET PO ONE (10:30)
[2018-09-04] MEDS: PERCOCET 5MG/325MG TAB PO PRN ×2 (10:55→17:50)
--- NOTE | 2018-09-04 12:04 | IPNPDOC ---
Subjective Date Seen The patient was seen on 09/04/18. Subjective Chief Complaint/HPI Patient seen and examined at the bedside. Reports that her abdominal pain is improving. She states that she did have a bloody bowel movement yesterday evening however 2 bowel movements following that revealed improvement. She has been started on a low residue diet as per GI. Objective Physical Examination General Exam: Positive: Alert, Cooperative, No Acute Distress ENT Exam: Positive: Atraumatic, Mucous membr. moist/pink Chest Exam: Positive: Clear to auscultation, Normal air movement; Negative: Rales, Rhonchi, Wheezing Heart Exam: Positive: Rate Normal, Normal S1, Normal S2 Abdomen Exam: Positive: Soft, Tenderness (mild tenderness to deep palpation in the left lower quadrant. No rebound tenderness, guarding, or rigidity noted.) Extremity Exam: Positive: Swelling (LLE slightly larger appearing than RLE); Negative: Tenderness Neuro Exam: Positive: Other (awake, alert, oriented 3. Answering questions appropriately. Moving all 4 extremities) Psych Exam: Positive: Mental status NL, Oriented x 3 A-FIB/CHADSVASC A-FIB History Current/History of A-Fib/PAF?: No Assessment /Plan Plan/VTE VTE Prophylaxis Ordered?: Yes Plan Sepsis/abdominal pain/N/V/D likely 2/2 Ischemic Colitis s/p Colonoscopy on 09/03/18--severe segmental inflammation/edema noted proximal to the anus consistent with ischemic colitis. The patient was noted to have a bloody bowel movement yesterday following colonoscopy, and this was attributed likely to her underlying ischemic colitis. The patient states that she has had 2 bowel movements since and has noticed that there has been little to no blood in them. H&H stable We will discontinue IV antibiotic therapy at this time and continue with supportive treatment The patient's diet has been advanced to low residue as per GI We will continue to monitor the patient at this time. JB/CKDIII 2/2 Above, resolved Non-anion gap metabolic acidosis 2/2 Above, resolved COPD, stable Albuterol prn Obesity with a BMI of 33.4 Complicating medical care Hypothyroidism Cont levothyroxine Schizoaffective disorder, mood disorder, anxiety Continue prn clonazepam, mirtazapine, Seroquel Obstructive sleep apnea May use home CPAP LLE Swelling Will order an U/S of the Lower Extremities to r/o DVT GI/DVT prophylaxis PPI/OOB, Ambulation VS, I&O, 24H, Fishbone Vital Signs/I&O Vital Signs Date Time Temp Pulse Resp B/P (MAP) Pulse Ox O2 Delivery O2 Flow Rate FiO2 09/04/18 10:55 18 09/04/18 10:00 98.2 65 148/66 (93) 96 08/31/18 16:00 Room Air 08/31/18 07:00 2.0 I&O- Last 24 Hours up to 6 AM 09/04/18 06:00 Intake Total 785 ml Output Total 0 ml Balance 785 ml Laboratory Data 24H LABS Laboratory Tests 2 09/03/18 12:15: Bedside Glucose (Misc Panel) 82 09/03/18 17:32: Bedside Glucose (Misc Panel) 78L 09/04/18 00:01: Bedside Glucose (Misc Panel) 83 09/04/18 06:24: Bedside Glucose (Misc Panel) 74L 09/04/18 08:02: Nucleated Red Blood Cells % (auto) 0.0, Anion Gap 7L, Glomerular Filtration Rate > 60.0, Blood Urea Nitrogen 4L, Creatinine 0.75, Sodium Level 142, Potassium Level 3.4L, Chloride Level 112H, Carbon Dioxide Level 23, Calcium Level 7.0L, Aspartate Amino Transf (AST/SGOT) 19, Alanine Aminotransferase (ALT/SGPT) 16, A lkaline Phosphatase 83, Total Bilirubin 0.3, Total Protein 4.8L, Albumin 1.8L, Magnesium Level 1.9, Albumin/Globulin Ratio 0.60L 09/04/18 11:28: Bedside Glucose (Misc Panel) 107 CBC/BMP Laboratory Tests 09/04/18 08:02 Red Blood Count 3.62 L, Mean Corpuscular Volume 89.5, Mean Corpuscular Hemoglobin 29.3, Mean Corpuscular Hemoglobin Concent 32.7, Red Cell Distribution Width 13.9, Calcium Level 7.0 L, Aspartate Amino Transf (AST/SGOT) 19, Alanine Aminotransferase (ALT/SGPT) 16, Alkaline Phosphatase 83, Total Bilirubin 0.3, Total Protein 4.8 L, Albumin 1.8 L Microbiology Microbiology 08/30/18 Blood Culture - Preliminary, Resulted No Growth after 72 hours. All specime... 08/30/18 Blood Culture - Preliminary, Resulted No Growth after 72 hours. All specime... 09/01/18 Stool Occult Blood (RHIANNA) - Final, Complete 09/01/18 Stool Occult Blood (RHIANNA) - Final, Complete 09/01/18 Stool Occult Blood (RHIANNA) - Final, Complete 08/30/18 Gastrointestinal Tract Panel (PCR) - Final, Complete ZEN VELIZ MD Sep 04, 2018 12:04
--- NOTE | 2018-09-04 12:23 | REP ---
Bilateral lower extremity Duplex Doppler venous ultrasound: Real time compression and duplex Doppler interrogation of the bilateral lower extremity deep venous system is performed. Bilaterally, the common femoral, superficial femoral and popliteal veins are fully compressible with transducer pressure and demonstrate normal spontaneous and phasic flow, without evidence of deep venous thrombosis. Impression: No evidence of deep venous thrombosis of the bilateral lower extremity femoral popliteal venous system. Electronically Signed by Jamal Montero MD 09/04/2018 12:14 P
[2018-09-04] MEDS: TAMSULOSIN 0.4 MG CAP PO SCH (13:39)
[2018-09-04 14:00] VITALS: BP 168/89
[2018-09-04 18:00] VITALS: BP 148/76
[2018-09-04] MEDS: QUEtiapine FUMARATE 200 MG TAB PO SCH (20:25)
[2018-09-04] MEDS: MIRTAZAPINE 15 MG TAB PO SCH (20:25)
[2018-09-04] MEDS: **NOTE PATIENT COMMENT** MISC XX SCH (20:26)
[2018-09-04 22:00] VITALS: BP 149/71
[2018-09-05 02:00] VITALS: BP 141/68
[2018-09-05] MEDS: PERCOCET 5MG/325MG TAB PO PRN ×4 (02:58→23:06)
[2018-09-05] MEDS: LEVOTHYROXINE 125MCG TABLET (0.125MG) PO SCH (05:48)
[2018-09-05 06:00] VITALS: BP 147/83
[2018-09-05 06:02] LABS: HEMATOCRIT 34.3 % (36.0-47.0); HEMOGLOBIN 10.9 g/dl (12.0-15.5); MEAN CORPUSCULAR HEMOGLOBIN 29.1 pg (27.0-33.0); MEAN CORPUSCULAR HGB CONC 31.8 g/dl (32.0-36.5); MEAN CORPUSCULAR VOLUME 91.5 fl (80.0-96.0); PLATELET COUNT, AUTOMATED 224 10^3/uL (150-450); RED BLOOD COUNT 3.75 10^6/uL (4.00-5.40); WHITE BLOOD COUNT 5.7 10^3/uL (4.0-10.0)
[2018-09-05] MEDS: ONDANSETRON 4MG/2ML VIAL (J2405) IV PRN ×3 (06:03→18:38)
[2018-09-05] MEDS: clonazePAM 0.5 MG TAB PO PRN ×2 (06:23→18:38)
[2018-09-05 06:25] LABS: ALBUMIN 1.7 GM/DL (3.2-5.2); ALT/SGPT 16 U/L (12-78); BILIRUBIN,TOTAL 0.2 MG/DL (0.2-1.0); BLOOD UREA NITROGEN 3 MG/DL (7-18); CARBON DIOXIDE LEVEL 23 MEQ/L (21-32); CHLORIDE LEVEL 113 MEQ/L (98-107); CREATININE FOR GFR 0.78 MG/DL (0.55-1.30); GLOMERULAR FILTRATION RATE > 60.0 (>45); GLUCOSE, FASTING 97 MG/DL (70-100); MAGNESIUM LEVEL 1.7 MG/DL (1.8-2.4); POTASSIUM SERUM 3.3 MEQ/L (3.5-5.1); SODIUM LEVEL 142 MEQ/L (136-145)
[2018-09-05] MEDS ORDERED: POTASSIUM CHLORIDE 10 MEQ SR TABLET PO ONE (09:00)
[2018-09-05] MEDS ORDERED: MAGNESIUM OXIDE 400 MG TAB (MAG-OX) PO ONE (09:00)
[2018-09-05] MEDS: NS 1,000 ML IV SCH (09:27)
[2018-09-05] MEDS: LIDOCAINE 5% (LIDODERM) PATCH TD SCH (09:37)
[2018-09-05] MEDS: PANTOPRAZOLE 40MG INJ (PROTONIX) (C9113) IV SCH (09:37)
[2018-09-05] MEDS: MIRALAX *UNIT DOSE* 17GM PACKET PO SCH (09:37)
[2018-09-05] MEDS: TAMSULOSIN 0.4 MG CAP PO SCH (12:21)
[2018-09-05 14:00] VITALS: BP 152/80
--- NOTE | 2018-09-05 14:12 | IPNPDOC ---
Subjective Date Seen The patient was seen on 09/05/18. Subjective Chief Complaint/HPI Patient seen and examined at bedside. Reports that she still has some nausea with left lower abdominal quadrant pain. However denies any vomiting. Objective Physical Examination General Exam: Positive: Alert, Cooperative, No Acute Distress ENT Exam: Positive: Atraumatic, Mucous membr. moist/pink Chest Exam: Positive: Clear to auscultation, Normal air movement; Negative: Rales, Rhonchi, Wheezing Heart Exam: Positive: Rate Normal, Normal S1, Normal S2 Abdomen Exam: Positive: Soft, Tenderness (mild tenderness to deep palpation in the left lower quadrant. No rebound tenderness, guarding, or rigidity noted.) Extremity Exam: Positive: Swelling (LLE slightly larger appearing than RLE); Negative: Tenderness Neuro Exam: Positive: Other (awake, alert, oriented 3. Answering questions appropriately. Moving all 4 extremities) Psych Exam: Positive: Mental status NL, Oriented x 3 A-FIB/CHADSVASC A-FIB History Current/History of A-Fib/PAF?: No Assessment /Plan Plan/VTE VTE Prophylaxis Ordered?: Yes Plan Sepsis/abdominal pain/N/V/D likely 2/2 Ischemic Colitis s/p Colonoscopy on 09/03/18--severe segmental inflammation/edema noted proximal to the anus consistent with ischemic colitis. The patient was noted to have a bloody bowel movement on 09/03 following colonoscopy, and this was attributed likely to her underlying ischemic colitis. The patient states that she has had multiple bowel movements since and has noticed that there has been no blood in them. H&H stable IV antibiotic therapy discontinued at this time given ischemic colitis diagnosis and continue with supportive treatment The patient's diet has been advanced to low residue as per GI We will continue to monitor the patient at this time. JB/CKDIII 2/2 Above, resolved Non-anion gap metabolic acidosis 2/2 Above, resolved COPD, stable Albuterol prn Obesity with a BMI of 33.4 Complicating medical care Hypothyroidism Cont levothyroxine Schizoaffective disorder, mood disorder, anxiety Continue prn clonazepam, mirtazapine, Seroquel Obstructive sleep apnea May use home CPAP LLE Swelling Will order an U/S of the Lower Extremities to r/o DVT GI/DVT prophylaxis PPI/SCDs, TEDs Dispo--pending clinical improvement VS, I&O, 24H, Fishbone Vital Signs/I&O Vital Signs Date Time Temp Pulse Resp B/P (MAP) Pulse Ox O2 Delivery O2 Flow Rate FiO2 09/05/18 10:06 18 09/05/18 06:00 97.9 69 147/83 (104) 95 08/31/18 16:00 Room Air 08/31/18 07:00 2.0 I&O- Last 24 Hours up to 6 AM 09/05/18 06:00 Intake Total 1575 ml Output Total 500 ml Balance 1075 ml Laboratory Data 24H LABS Laboratory Tests 2 09/04/18 17:21: Bedside Glucose (Misc Panel) 91 09/05/18 05:48: Nucleated Red Blood Cells % (auto) 0.4H, Anion Gap 6L, Glomerular Filtration Rate > 60.0, Blood Urea Nitrogen 3L, Creatinine 0.78, Sodium Level 142, Potassium Level 3.3L, Chloride Level 113H, Carbon Dioxide Level 23, Calcium Level 7.0L, Aspartate Amino Transf (AST/SGOT) 13, Alanine Aminotransferase (ALT/SGPT) 16, Alkaline Phosphatase 74, Total Bilirubin 0.2, Total Protein 5.0L, Albumin 1.7L, Magnesium Level 1.7L, Albumin/Globulin Ratio 0.52L CBC/BMP Laboratory Tests 09/05/18 05:48 Red Blood Count 3.75 L, Mean Corpuscular Volume 91.5, Mean Corpuscular Hemoglobin 29.1, Mean Corpuscular Hemoglobin Concent 31.8 L, Red Cell Distribution Width 13.9, Calcium Level 7.0 L, Aspartate Amino Transf (AST/SGOT) 13, Alanine Aminotransferase (ALT/SGPT) 16, Alkaline Phosphatase 74, Total Bilirubin 0.2, Total Protein 5.0 L, Albumin 1.7 L Microbiology Microbiology 08/30/18 Blood Culture - Final, Complete NO GROWTH AFTER 5 DAYS 08/30/18 Blood Culture - Final, Complete NO GROWTH AFTER 5 DAYS 09/01/18 Stool Occult Blood (RHIANNA) - Final, Complete 09/01/18 Stool Occult Blood (RHIANNA) - Final, Complete 09/01/18 Stool Occult Blood (RHIANNA) - Final, Complete 08/30/18 Gastrointestinal Tract Panel (PCR) - Final, Complete ZEN VELIZ MD Sep 05, 2018 14:12
[2018-09-05] MEDS: **NOTE PATIENT COMMENT** MISC XX SCH (21:00)
[2018-09-05 22:00] VITALS: BP 135/74
[2018-09-05] MEDS: QUEtiapine FUMARATE 200 MG TAB PO SCH (22:07)
[2018-09-05] MEDS: MIRTAZAPINE 15 MG TAB PO SCH (22:07)
[2018-09-06] MEDS: PERCOCET 5MG/325MG TAB PO PRN ×3 (05:50→19:41)
[2018-09-06] MEDS: LEVOTHYROXINE 125MCG TABLET (0.125MG) PO SCH (05:50)
[2018-09-06 06:00] VITALS: BP_SYST 156
[2018-09-06] MEDS: clonazePAM 0.5 MG TAB PO PRN ×2 (06:50→20:11)
[2018-09-06 07:04] LABS: HEMATOCRIT 36.7 % (36.0-47.0); HEMOGLOBIN 11.7 g/dl (12.0-15.5); MEAN CORPUSCULAR HGB CONC 31.9 g/dl (32.0-36.5); MEAN CORPUSCULAR VOLUME 90.8 fl (80.0-96.0); PLATELET COUNT, AUTOMATED 270 10^3/uL (150-450); RED BLOOD COUNT 4.04 10^6/uL (4.00-5.40); WHITE BLOOD COUNT 5.2 10^3/uL (4.0-10.0)
[2018-09-06 07:25] LABS: ALBUMIN 1.8 GM/DL (3.2-5.2); ALT/SGPT 13 U/L (12-78); BILIRUBIN,TOTAL 0.3 MG/DL (0.2-1.0); BLOOD UREA NITROGEN 1 MG/DL (7-18); CALCIUM LEVEL 7.5 MG/DL (8.8-10.2); CARBON DIOXIDE LEVEL 25 MEQ/L (21-32); CHLORIDE LEVEL 112 MEQ/L (98-107); CREATININE FOR GFR 0.86 MG/DL (0.55-1.30); GLOMERULAR FILTRATION RATE > 60.0 (>45); GLUCOSE, FASTING 92 MG/DL (70-100); POTASSIUM SERUM 3.6 MEQ/L (3.5-5.1); SODIUM LEVEL 142 MEQ/L (136-145); TOTAL PROTEIN 5.3 GM/DL (6.4-8.2)
[2018-09-06] MEDS: PANTOPRAZOLE 40MG INJ (PROTONIX) (C9113) IV SCH (08:34)
[2018-09-06] MEDS: ONDANSETRON 4MG/2ML VIAL (J2405) IV PRN ×2 (08:34→15:15)
[2018-09-06] MEDS: MIRALAX *UNIT DOSE* 17GM PACKET PO SCH (08:35)
[2018-09-06] MEDS: LIDOCAINE 5% (LIDODERM) PATCH TD SCH (08:35)
[2018-09-06] MEDS ORDERED: POTASSIUM CHLORIDE 10 MEQ SR TABLET PO ONE (09:00)
[2018-09-06] MEDS: TAMSULOSIN 0.4 MG CAP PO SCH (12:10)
[2018-09-06 14:00] VITALS: BP 124/87
--- NOTE | 2018-09-06 14:39 | IPNPDOC ---
Subjective Date Seen The patient was seen on 09/06/18. Subjective Chief Complaint/HPI Patient seen and examined at the bedside. Reports that she is starting to feel better, and that her abdominal pain and nausea is also mostly resolved. She does state that she feels generalized weakness. Physical therapy ordered. Objective Physical Examination General Exam: Positive: Alert, Cooperative, No Acute Distress ENT Exam: Positive: Atraumatic, Mucous membr. moist/pink Chest Exam: Positive: Clear to auscultation, Normal air movement; Negative: Rales, Rhonchi, Wheezing Heart Exam: Positive: Rate Normal, Normal S1, Normal S2 Abdomen Exam: Positive: Soft; Negative: Tenderness Extremity Exam: Positive: Swelling (LLE slightly larger appearing than RLE); Negative: Tenderness Neuro Exam: Positive: Other (awake, alert, oriented 3. Answering questions appropriately. Moving all 4 extremities) Psych Exam: Positive: Mental status NL, Oriented x 3 Assessment /Plan Plan/VTE VTE Prophylaxis Ordered?: Yes Plan Sepsis/abdominal pain/N/V/D likely 2/2 Ischemic Colitis s/p Colonoscopy on 09/03/18--severe segmental inflammation/edema noted proximal to the anus consistent with ischemic colitis. The patient was noted to have a bloody bowel movement on 09/03 following colonoscopy, and this was attributed likely to her underlying ischemic colitis. The patient states that she has had multiple bowel movements since and has noticed that there has been no blood in them. H&H stable IV antibiotic therapy discontinued at this time given ischemic colitis diagnosis and continue with supportive treatment The patient's diet has been advanced to low residue as per GI We will continue to monitor the patient at this time. JB/CKDIII 2/2 Above, resolved Non-anion gap metabolic acidosis 2/2 Above, resolved COPD, stable Albuterol prn Obesity with a BMI of 33.4 Complicating medical care Hypothyroidism Cont levothyroxine Schizoaffective disorder, mood disorder, anxiety Continue prn clonazepam, mirtazapine, Seroquel Obstructive sleep apnea May use home CPAP LLE Swelling U/S of the Lower Extremities negative for DVT GI/DVT prophylaxis PPI/SCDs, TEDs Dispo--pending clinical improvement, PT clearance VS, I&O, 24H, Fishbone Vital Signs/I&O Vital Signs Date Time Temp Pulse Resp B/P (MAP) Pulse Ox O2 Delivery O2 Flow Rate FiO2 09/06/18 14:00 97.1 81 18 124/87 (99) 93 08/31/18 16:00 Room Air 08/31/18 07:00 2.0 I&O- Last 24 Hours up to 6 AM 09/06/18 06:00 Intake Total 1610 ml Output Total 1400 ml Balance 210 ml Laboratory Data 24H LABS Laboratory Tests 2 09/06/18 06:45: Nucleated Red Blood Cells % (auto) 0.0, Anion Gap 5L, Glomerular Filtration Rate > 60.0, Blood Urea Nitrogen 1#L, Creatinine 0.86, Sodium Level 142, Potassium Level 3.6, Chloride Level 112H, Carbon Dioxide Level 25, Calcium Level 7.5L, Aspartate Amino Transf (AST/SGOT) 14, Alanine Aminotransferase (ALT/SGPT) 13, Alkaline Phosphatase 87, Total Bilirubin 0.3, Total Protein 5.3L, Albumin 1.8L, Magnesium Level 2.0, Albumin/Globulin Ratio 0.51L CBC/BMP Laboratory Tests 09/06/18 06:45 Red Blood Count 4.04, Mean Corpuscular Volume 90.8, Mean Corpuscular Hemoglobin 29.0, Mean Corpuscular Hemoglobin Concent 31.9 L, Red Cell Distribution Width 14.2, Calcium Level 7.5 L, Aspartate Amino Transf (AST/SGOT) 14, Alanine Aminotransferase (ALT/SGPT) 13, Alkaline Phosphatase 87, Total Bilirubin 0.3, Total Protein 5.3 L, Albumin 1.8 L Microbiology Microbiology 08/30/18 Blood Culture - Final, Complete NO GROWTH AFTER 5 DAYS 08/30/18 Blood Culture - Final, Complete NO GROWTH AFTER 5 DAYS 09/05/18 Stool Occult Blood (RHIANNA) - Final, Complete 09/01/18 Stool Occult Blood (RHIANNA) - Final, Complete 09/01/18 Stool Occult Blood (RHIANNA) - Final, Complete 09/01/18 Stool Occult Blood (RHIANNA) - Final, Complete 08/30/18 Gastrointestinal Tract Panel (PCR) - Final, Complete ZEN VELIZ MD Sep 06, 2018 14:39
[2018-09-06] MEDS: MIRTAZAPINE 15 MG TAB PO SCH (20:10)
[2018-09-06] MEDS: QUEtiapine FUMARATE 200 MG TAB PO SCH (20:11)
[2018-09-06] MEDS: **NOTE PATIENT COMMENT** MISC XX SCH (20:15)
[2018-09-06 22:00] VITALS: BP 157/82
[2018-09-07] MEDS: PERCOCET 5MG/325MG TAB PO PRN ×2 (03:43→09:43)
[2018-09-07] MEDS: LEVOTHYROXINE 125MCG TABLET (0.125MG) PO SCH (05:35)
[2018-09-07 06:00] VITALS: BP 156/82
[2018-09-07 06:07] LABS: HEMOGLOBIN 11.2 g/dl (12.0-15.5); MEAN CORPUSCULAR VOLUME 90.7 fl (80.0-96.0); PLATELET COUNT, AUTOMATED 263 10^3/uL (150-450); RED BLOOD COUNT 3.86 10^6/uL (4.00-5.40); WHITE BLOOD COUNT 5.5 10^3/uL (4.0-10.0)
[2018-09-07 06:32] LABS: ALBUMIN 1.8 GM/DL (3.2-5.2); ALT/SGPT 16 U/L (12-78); BILIRUBIN,TOTAL 0.3 MG/DL (0.2-1.0); BLOOD UREA NITROGEN 4 MG/DL (7-18); CALCIUM LEVEL 7.3 MG/DL (8.8-10.2); CARBON DIOXIDE LEVEL 27 MEQ/L (21-32); CHLORIDE LEVEL 109 MEQ/L (98-107); CREATININE FOR GFR 0.96 MG/DL (0.55-1.30); GLOMERULAR FILTRATION RATE > 60.0 (>45); GLUCOSE, FASTING 100 MG/DL (70-100); MAGNESIUM LEVEL 1.9 MG/DL (1.8-2.4); POTASSIUM SERUM 3.9 MEQ/L (3.5-5.1); SODIUM LEVEL 141 MEQ/L (136-145); TOTAL PROTEIN 5.5 GM/DL (6.4-8.2)
[2018-09-07] MEDS: LIDOCAINE 5% (LIDODERM) PATCH TD SCH (08:30)
[2018-09-07] MEDS: clonazePAM 0.5 MG TAB PO PRN (08:30)
[2018-09-07] MEDS ORDERED: PANTOPRAZOLE 40MG TAB (PROTONIX) PO SCH (09:00)
[2018-09-07] MEDS: TAMSULOSIN 0.4 MG CAP PO SCH (11:43)
--- NOTE | 2018-09-07 17:01 | DS.PDOC ---
Discharge Summary General Date of Admission Aug 30, 2018 at 18:06 Date of Discharge 09/07/18 Specialist/Consultants Involve Dr. Ziegler of Surgery, Dr. Montes of GI Discharge Summary PROCEDURES PERFORMED DURING STAY: Colonoscopy on 09/03/18 ADMITTING/DISCHARGE DIAGNOSES: Ischemic colitis Acute kidney injury superimposed on chronic kidney disease stage III History of COPD Obesity Hypothyroidism Schizoaffective disorder Obstructive sleep apnea COMPLICATIONS/CHIEF COMPLAINT: Colitis,Intractable Nausea And Vomiting. HISTORY OF PRESENT ILLNESS: . 62-year-old female with past medical history of hypertension, hypothyroidism, COPD, obstructive sleep apnea, GERD, schizoaffective disorder, chronic kidney disease, irritable bowel syndrome, and chronic back pain presents to the ER with a chief complaint of abdominal pain with nausea and vomiting. The patient was recently admitted to the hospital and underwent exploratory laparoscopy with lysis of adhesions. Upon returning home, the patient noticed red blood in her stools. She returned to the ER for further evaluation and management. In the ER, CT abdomen/pelvis findings were concerning for descending colitis. The patient was admitted to the hospitalist service for further evaluation and management. During hospitalization, general surgery was consulted and deemed that a GI consultation for a colonoscopy was warranted. Colonoscopy was performed and revealed severe inflammation/edema consistent with probable ischemic colitis. The patient was provided with supportive treatment and IV fluid hydration. Consequently, the patient's bloody bowel movements and abdominal pain with nausea and vomiting resolved. At this time, the patient states that she is feeling much better and is eager to return home. She has remained h emodynamically stable at this time, and is tolerating a diet without any acute complaints. She is also having regular bowel movements without any overt blood noted. I've advised the patient follow-up with her primary care physician within 7 days. Lastly, the patient has been advised to return to the ER for any acute emergencies. DISCHARGE MEDICATIONS: Please see below. ALLERGIES: Please see below. PHYSICAL EXAMINATION ON DISCHARGE: VITAL SIGNS: Please see below. General Exam: Positive: Alert, Cooperative, No Acute Distress ENT Exam: Positive: Atraumatic, Mucous membr. moist/pink Chest Exam: Positive: Clear to auscultation, Normal air movement; Negative: Rales, Rhonchi, Wheezing Heart Exam: Positive: Rate Normal, Normal S1, Normal S2 Abdomen Exam: Positive: Soft; Negative: Tenderness Extremity Exam: Positive: Swelling (LLE slightly larger appearing than RLE); Negative: Tenderness Neuro Exam: Positive: Other (awake, alert, oriented 3. Answering questions appropriately. Moving all 4 extremities) Psych Exam: Positive: Mental status NL, Oriented x 3 LABORATORY DATA: Please see below. IMAGING: Procedure: Colonoscopy Indications: Abdominal pain in the left lower quadrant, Abnormal CT of the GI tract Providers: Deion MONTES MD Referring MD: 2. Inpatient 2. Inpatient, Simon Ye MD Requesting Provider: Medicines: Monitored Anesthesia Care Complications: No immediate complications. Procedure: Pre-Anesthesia Assessment: - The heart rate, respiratory rate, oxygen saturations, blood pressure, adequacy of pulmonary ventilation, and response to care were monitored throughout the procedure. The Colonoscope was introduced through the anus and advanced to the cecum, identified by appendiceal orifice and ileocecal valve. The colonoscopy was performed without difficulty. The patient tolerated the procedure well. The quality of the bowel preparation was unsatisfactory. Findings: The perianal and digital rectal examinations were normal. Segmental severe inflammation characterized by congestion (edema), friability and mucus was found from 30 to 70 cm proximal to the anus. Biopsies were taken with a cold forceps for histology. A 10 mm polyp was found in the distal sigmoid colon. The polyp was semi-sessile. Biopsies were taken with a cold forceps for histology. The exam was otherwise without abnormality. Impression: - Preparation of the colon was unsatisfactory. - Segmental severe inflammation/edema was found from 30 to 70 cm proximal to the anus consistent with probable ischemic colitis. Biopsied. - One probable 10 mm polyp in the distal sigmoid colon. Biopsied to r/o adenoma. (NOT REMOVED) - The examination was otherwise normal. Recommendation: - Await pathology results for definite diagnosis. - Miralax 1 capful (17 grams) in 8 ounces of water PO daily indefinitely. - Ischemic colitis is typically selflimited condition--continue to observe for clinical improvement. - Pt may follow up with her curve saw operator for follow up colonoscopy as OP. (Probable colon polyp that may need to be removed--await path) REASON: History of obstruction. COMPARISON CT: 08/13/2018 CONTRAST: 100 mL Isovue-370. The chronic lung base change is status quo. Diffuse low density is seen throughout the hepatic parenchyma consistent with fatty infiltration status quo. The patient is status-post cholecystectomy. The spleen, pancreas, adrenals glands and kidneys are unchanged. The abdominal aorta and paraaortic regions are unchanged. There is mild dilatation within a content filled tranverse and distal descending colon. At the descending colon/sigmoid colon junction there is a transition of luminal narrowing. The sigmoid colon, however is not devoid of content or gas. The small bowel loops are not abnormally dilatated. There is some evidence of wall thickening and mild pericolonic fatty infiltration involving the descending colon up to the level of transition. There is no free fluid or free air in the abdomen or pelvis. There is no change in the osseous structures. IMPRESSION:1. Findings involving the distal colon as described above. Possible luminal narrowing due to adhesion. There is no nyla evidence of colonic obstruction, however there is evidence of descending colitis. The appearance of which is essentially unchanged from the prior exam. 2. Other findings as described above. PROGNOSIS: Fair ACTIVITY: As tolerated. DIET: 2 g low sodium diet DISCHARGE PLAN: DISPOSITION: 01 Home, Self-Care. DISCHARGE INSTRUCTIONS: I've advised the patient follow-up with her primary care physician within 7 days. Lastly, the patient has been advised to return to the ER for any acute emergencies. DISCHARGE CONDITION: Stable. TIME SPENT ON DISCHARGE: Greater than 30 minutes. Vital Signs/I&Os Vital Signs Date Time Temp Pulse Resp B/P (MAP) Pulse Ox O2 Delivery O2 Flow Rate FiO2 09/07/18 10:15 18 09/07/18 06:00 98.1 86 156/82 (106) 96 I&O- Last 24 Hours up to 6 AM 09/07/18 06:00 Intake Total 2010 ml Output Total 2900 ml Balance -890 ml Laboratory Data Labs 24H Laboratory Tests 2 09/07/18 05:40: Nucleated Red Blood Cells % (auto) 0.0, Anion Gap 5L, Glomerular Filtration Rate > 60.0, Blood Urea Nitrogen 4#L, Creatinine 0.96, Sodium Level 141, Potassium Level 3.9, Chloride Level 109H, Carbon Dioxide Level 27, Calcium Level 7.3L, Aspartate Amino Transf (AST/SGOT) 16, Alanine Aminotransferase (ALT/SGPT) 16, Alkaline Phosphatase 88, Total Bilirubin 0.3, Total Protein 5.5L, Albumin 1.8L, Magnesium Level 1.9, Albumin/Globulin Ratio 0.49L CBC/BMP Laboratory Tests 09/07/18 05:40 Red Blood Count 3.86 L, Mean Corpuscular Volume 90.7, Mean Corpuscular Hemoglobin 29.0, Mean Corpuscular Hemoglobin Concent 32.0, Red Cell Distribution Width 14.3, Calcium Level 7.3 L, Aspartate Amino Transf (AST/SGOT) 16, Alanine Aminotransferase (ALT/SGPT) 16, Alkaline Phosphatase 88, Total Bilirubin 0.3, Total Protein 5.5 L, Albumin 1.8 L Microbiology Microbiology 08/30/18 Blood Culture - Final, Complete NO GROWTH AFTER 5 DAYS 08/30/18 Blood Culture - Final, Complete NO GROWTH AFTER 5 DAYS 09/05/18 Stool Occult Blood (RHIANNA) - Final, Complete 09/01/18 Stool Occult Blood (RHIANNA) - Final, Complete 09/01/18 Stool Occult Blood (RHIANNA) - Final, Complete 09/01/18 Stool Occult Blood (RHIANNA) - Final, Complete 08/30/18 Gastrointestinal Tract Panel (PCR) - Final, Complete Discharge Medications Scheduled Cranberry (Cranberry) 400 Mg Cap, 400 MG PO BID, (Reported) Ergocalciferol (Vitamin D2) (Vitamin D2) 50,000 Unit Cap, 50,000 UNIT PO 1XWK, (Reported) WEDNESDAYS Fluticasone Furoate (Arnuity Ellipta) 100 Mcg/Act Inh, 100 MCG INH DAILY, (Reported) Levothyroxine Sodium (Levothyroxine Sodium) 125 Mcg Tab, 125 MCG PO DAILY, (Reported) Lisinopril (Lisinopril) 10 Mg Tab, 10 MG PO DAILY, (Reported) Mirtazapine (Remeron) 30 Mg Tab, 30 MG PO QHS, (Reported) Multivitamin (Multivitamins) 1 Each Tablet, 1 TAB PO DAILY, (Reported) Pantoprazole Sodium (Pantoprazole Sodium) 40 Mg Tab, 40 MG PO BID, (Reported) Quetiapine Fumarate (Seroquel) 400 Mg Tab, 400 MG PO QHS, (Reported) Tamsulosin HCl (Flomax) 0.4 Mg Cap, 0.4 MG PO DAILY, (Reported) TAKES AT NOONTIME Scheduled PRN Albuterol Sulfate (Ventolin Hfa) 108 Mcg/Act Aer, 2 PUFFS INH Q4H PRN for SHORTNESS OF BREATH, (Reported) Clonazepam (Clonazepam) 1 Mg Tab, 1 MG PO BID PRN for ANXIETY/AGITATION, (Reported) CAN HAVE UP TO 2.5MG/DAY Clonazepam (Clonazepam) 1 Mg Tab, 0.5 MG PO DAILY PRN for ANXIETY/AGITATION, (Reported) CAN HAVE UP TO 2.5MG/DAY Conjugated Estrogens (Premarin) 1 Dose/30 Gm Cr, 0.5 GM PV 2XWK PRN for IRRITATION, (Reported) MONDAYS AND WEDNESDAYS Cyclobenzaprine HCl (Cyclobenzaprine HCl) 10 Mg Tab, 10 MG PO TID PRN for MUSCLE SPASMS, (Reported) Ipratropium/Albuterol Sulfate (Combivent Respimat 20-100 Mcg) 1 Aer Aer, 1 PUFF INH QID PRN for SOB/WHEEZING, (Reported) Ipratropium/Albuterol Sulfate (Iprat-Albut 0.5-3(2.5) mg/3 ml) 1 Luis Luis, 1 LUIS INH Q6H PRN for SHORTNESS OF BREATH, (Reported) Lidocaine (Lidocaine) 4 % Cre, 1 DOSE TOP Q8H PRN for PAIN, (Reported) USES ON KNEES Magnesium Carb/Aluminum Hydrox (Gaviscon Es Tablet Chew) 1 Chw Chw, 1 CHW PO BID PRN for HEARTBURN, (Reported) Ondansetron (Ondansetron Odt) 4 Mg Tab, 4 MG PO Q4H PRN for NAUSEA, (Reported) Oxycodone HCl/Acetaminophen (Oxycodon-Acetaminophen 7.5-325) 1 Each Tablet, 1 TAB PO Q6H PRN for PAIN, (Reported) Allergies Coded Allergies: risperidone (Verified Allergy, Intermediate, LEGS JERK, SWELLING, 08/30/18) tetracycline (Verified Allergy, Mild, VOMITING, RASH, 08/30/18) haloperidol (Verified Allergy, Unknown, unsure, 08/30/18) buspirone (Verified Adverse Reaction, Intermediate, HEART POUNDING, 08/30/18) methocarbamol (Verified Adverse Reaction, Intermediate, LEGS TINGLING, 08/30/18) trazodone (Verified Adverse Reaction, Intermediate, "REAL SICK", 08/30/18) ibuprofen (Verified Adverse Reaction, Mild, VOMITING, 08/30/18) tramadol (Verified Adverse Reaction, Mild, nausea, 08/30/18) zafirlukast (Verified Adverse Reaction, Mild, ACCOLATE - MOTION SICKNESS, 08/30/18) ZEN VELIZ MD Sep 07, 2018 17:01
== END 2018-09-07 12:45 | disposition home or self-care (01) | DRG 720 ==
LOC: M ED 09:07 → EDBD 09:07 → M ED INP 18:06 → M MSPAV 08-31 17:35
PROVIDERS: ADMIT Internal Medicine; ATTEND Internal Medicine
PROC: 0DBM8ZX Excision of Descending Colon, Via Natural or Artificial Opening Endoscopic, Diagnostic (ICD-10-PCS; 2018-09-03)
PROC: 0DBN8ZX Excision of Sigmoid Colon, Via Natural or Artificial Opening Endoscopic, Diagnostic (ICD-10-PCS; principal; 2018-09-03 14:30)
DX: A41.9 Sepsis, unspecified organism (principal); K55.9 Vascular disorder of intestine, unspecified; N17.9 Acute kidney failure, unspecified; E87.2 Acidosis; N18.3 Chronic kidney disease, stage 3 (moderate); K76.0 Fatty (change of) liver, not elsewhere classified; F25.9 Schizoaffective disorder, unspecified; I12.9 Hypertensive chronic kidney disease with stage 1 through stage 4 chronic kidney disease, or unspecified chronic kidney disease; E03.9 Hypothyroidism, unspecified; J44.9 Chronic obstructive pulmonary disease, unspecified; G47.33 Obstructive sleep apnea (adult) (pediatric); K21.9 Gastro-esophageal reflux disease without esophagitis; K58.9 Irritable bowel syndrome, unspecified; N39.41 Urge incontinence; E78.5 Hyperlipidemia, unspecified; E55.9 Vitamin D deficiency, unspecified; M54.9 Dorsalgia, unspecified; K64.8 Other hemorrhoids; E66.9 Obesity, unspecified; M79.89 Other specified soft tissue disorders; K59.00 Constipation, unspecified; F41.9 Anxiety disorder, unspecified; D12.5 Benign neoplasm of sigmoid colon; F39 Unspecified mood [affective] disorder; Z79.899 Other long term (current) drug therapy; Z88.1 Allergy status to other antibiotic agents; Z88.5 Allergy status to narcotic agent; Z88.6 Allergy status to analgesic agent; Z88.8 Allergy status to other drugs, medicaments and biological substances; Z90.49 Acquired absence of other specified parts of digestive tract; Z87.442 Personal history of urinary calculi; Z87.891 Personal history of nicotine dependence; Z68.33 Body mass index [BMI] 33.0-33.9, adult

== ENCOUNTER → 2018-09-14 | Outpatient (REF) | payer OTHER ==
[~2018-09-14] MED LIST changes: +MULT-40 PO
[2018-09-14 13:43] LABS: HEMATOCRIT 37.1 % (36.0-47.0); HEMOGLOBIN 11.5 g/dl (12.0-15.5); MEAN CORPUSCULAR HEMOGLOBIN 29.9 pg (27.0-33.0); MEAN CORPUSCULAR VOLUME 96.6 fl (80.0-96.0); PLATELET COUNT, AUTOMATED 288 10^3/uL (150-450); RED BLOOD COUNT 3.84 10^6/uL (4.00-5.40); WHITE BLOOD COUNT 7.1 10^3/uL (4.0-10.0)
== END ==
LOC: M SFHCPLAZ 11:43
PROVIDERS: ATTEND Family Medicine
DX: D62 Acute posthemorrhagic anemia (principal)

== ENCOUNTER 2018-09-24 15:09 | Observation (INO) | payer OTHER ==
[~2018-09-24] VITALS: Ht 160 cm; Wt 78.0 kg
[2018-09-24] MEDS ORDERED: NS 1,000 ML IV ONE (15:30)
[2018-09-24 16:11] LABS: HEMATOCRIT 38.5 % (36.0-47.0); HEMOGLOBIN 12.2 g/dl (12.0-15.5); MEAN CORPUSCULAR HEMOGLOBIN 30.2 pg (27.0-33.0); MEAN CORPUSCULAR HGB CONC 31.7 g/dl (32.0-36.5); MEAN CORPUSCULAR VOLUME 95.3 fl (80.0-96.0); RED BLOOD COUNT 4.04 10^6/uL (4.00-5.40); WHITE BLOOD COUNT 6.3 10^3/uL (4.0-10.0)
[2018-09-24 16:24] LABS: ALBUMIN 2.8 GM/DL (3.2-5.2); ALT/SGPT 23 U/L (12-78); BILIRUBIN,DIRECT < 0.1 MG/DL (0.0-0.2); BILIRUBIN,TOTAL 0.3 MG/DL (0.2-1.0); BLOOD UREA NITROGEN 13 MG/DL (7-18); CALCIUM LEVEL 8.5 MG/DL (8.8-10.2); CARBON DIOXIDE LEVEL 25 MEQ/L (21-32); CHLORIDE LEVEL 109 MEQ/L (98-107); CREATININE FOR GFR 1.03 MG/DL (0.55-1.30); GLUCOSE, FASTING 104 MG/DL (70-100); LIPASE 196 U/L (73-393); POTASSIUM SERUM 4.7 MEQ/L (3.5-5.1); SODIUM LEVEL 140 MEQ/L (136-145); TOTAL PROTEIN 6.7 GM/DL (6.4-8.2)
[2018-09-24] MEDS ORDERED: ISOVUE-370 76% 100ML VIAL (Q9967) As Ordered ONE (16:35)
[2018-09-24] MEDS ORDERED: SERO1TAB3 PO (17:23)
--- NOTE | 2018-09-24 17:30 | ECGEPIP ---
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
[2018-09-24] MEDS ORDERED: MORPHINE 4 MG/ML 1ML VIAL/SYRINGE (J2270) IV ONE (17:45)
--- NOTE | 2018-09-24 18:36 | REP ---
CT angiography of the abdomen with IV contrast: History: Abdomen pain. History of ischemic colitis. Comparison study: August 30, 2018. CT contrast dose: 100 ml of intravenous Isovue 370. CT findings: Preliminary digital director asset radiograph demonstrates moderate colonic stool. Gas pattern is otherwise unremarkable. The lung bases are clear except for some mild linear fibrosis in the left lower lobe. There are two adjacent cylindrical foci of increased density in the lumen of the distal esophagus. These are new findings. Endoscopic clips versus undigested tablets. There is severe diffuse fatty infiltration of the liver. No focal liver mass lesion is seen. The spleen is normal in size homogeneous in texture. No adrenal lesion is seen. No pancreatic abnormality is noted. There are similar cylindrical densities in the lumen of the body of the stomach again suggestive of endoscopically placed clips. The gallbladder is surgically absent. Large bowel contains a [id number] amount of stool. There is mural thickening in the left colon from the splenic flexure distally to the level of the sigmoid colon. There is mild pericolonic stranding. There is little less stool content in the segment of colon but the findings are otherwise unchanged from the August 30, 2018 study. Nonspecific enterocolitis picture. There is an accessory right renal artery to the lower pole. Main renal arteries are nonstenotic. The celiac and superior mesenteric axes are patent without atherosclerosis or stenosis. The inferior mesenteric axes is patent and normally opacified. Iliac arteries are widely patent bilaterally. There is cortical atrophy particularly effecting the right kidney. There are small cortical cysts in the right kidney. Impression: 1. Moderate colitis picture affecting the descending colon with mural thickening and mild pericolonic stranding similar to the August 30, 2018 study and unchanged in distribution. 2. Moderate colonic stool through the descending colon segment. 3. Marked diffuse fatty infiltration of the liver. 4. No evidence of visceral arterial stenosis or occlusion. Accessory right renal artery. 5. Multifocal cortical atrophy right kidney. Electronically Signed by Franklyn King MD 09/24/2018 08:28 P
[2018-09-24] MEDS ORDERED: MOM 30ML SUSPENSION UDC PO ONE (19:30)
[2018-09-24 19:51] LABS: PLTBLUE- EDTA FREE CALC 282 K/mm3 (172-450)
[2018-09-24 20:08] LABS: INR 0.99; PROTHROMBIN TIME 13.2 SECONDS (12.1-14.4)
[2018-09-24 20:09] LABS: PARTIAL THROMBOPLASTIN TIME 29.2 SECONDS (25.4-37.6)
[2018-09-24 20:11] LABS: PLTBLUE- EDTA FREE MACHINE 256 10^3/uL (172-450)
--- NOTE | 2018-09-24 20:21 | HPEPDOC ---
General Date of Admission Chief Complaint The patient is a 63-year-old female admitted with a reason for visit of Abd Pain. Source: Patient, RN/, Old records History of Present Illness Ms. Guzman is a 63 years old woman on chronic opioid therapy who was recently admitted ( 08/30-09/07) for severe constipation requiring colonoscopy. During the procedure, bowel ischemia was identified. The pt was appropriately stabilized and discharged to f/u as OP. The pt returns today with c/o lower abdominal crampy pain. CTA abd shows moderate colitis and constipation unchanged from previous CT. Pt takes Percocet on a daily basis, but doesn't seem to be on a bowel regimen. She says she takes "stool softener" provided by her friend. Vitals, mental status and electrolytes are otherwise normal. Pt was given a trial of MOM in the ER; it was not successful. GI was consulted from Er; recommended observation. Home Medications Scheduled Cranberry (Cranberry) 400 Mg Cap, 400 MG PO BID, (Reported) Ergocalciferol (Vitamin D2) (Vitamin D2) 50,000 Unit Cap, 50,000 UNIT PO 1XWK, (Reported) WEDNESDAYS Fluticasone Furoate (Arnuity Ellipta) 100 Mcg/Act Inh, 100 MCG INH DAILY, (Reported) Levothyroxine Sodium (Levothyroxine Sodium) 125 Mcg Tab, 125 MCG PO DAILY, (Reported) Lisinopril (Lisinopril) 10 Mg Tab, 10 MG PO DAILY, (Reported) Mirtazapine (Remeron) 30 Mg Tab, 30 MG PO QHS, (Reported) Multivitamin (Multivitamins) 1 Each Tablet, 1 TAB PO DAILY, (Reported) Pantoprazole Sodium (Pantoprazole Sodium) 40 Mg Tab, 40 MG PO BID, (Reported) Quetiapine Fumarate (Seroquel) 400 Mg Tab, 400 MG PO QHS, (Reported) Tamsulosin HCl (Flomax) 0.4 Mg Cap, 0.4 MG PO DAILY, (Reported) TAKES AT NOONTIME Scheduled PRN Albuterol Sulfate (Ventolin Hfa) 108 Mcg/Act Aer, 2 PUFFS INH Q4H PRN for SHORTNESS OF BREATH, (Reported) Clonazepam (Clonazepam) 1 Mg Tab, 1 MG PO BID PRN for ANXIETY/AGITATION, (Reported) CAN HAVE UP TO 2.5MG/DAY Clonazepam (Clonazepam) 1 Mg Tab, 0.5 MG PO DAILY PRN for ANXIETY/AGITATION, (Reported) CAN HAVE UP TO 2.5MG/DAY Cyclobenzaprine HCl (Cyclobenzaprine HCl) 10 Mg Tab, 10 MG PO TID PRN for MUSCLE SPASMS, (Reported) Ipratropium/Albuterol Sulfate (Combivent Respimat 20-100 Mcg) 1 Aer Aer, 1 PUFF INH QID PRN for SOB/WHEEZING, (Reported) Ipratropium/Albuterol Sulfate (Iprat-Albut 0.5-3(2.5) mg/3 ml) 1 Luis Luis, 1 LUIS INH Q6H PRN for SHORTNESS OF BREATH, (Reported) Lidocaine (Lidocaine) 4 % Cre, 1 DOSE TOP Q8H PRN for PAIN, (Reported) USES ON KNEES Magnesium Carb/Aluminum Hydrox (Gaviscon Es Tablet Chew) 1 Chw Chw, 1 CHW PO BID PRN for HEARTBURN, (Reported) Ondansetron (Ondansetron Odt) 4 Mg Tab, 4 MG PO Q4H PRN for NAUSEA, (Reported) Oxycodone HCl/Acetaminophen (Oxycodon-Acetaminophen 7.5-325) 1 Each Tablet, 1 TAB PO Q6H PRN for PAIN, (Reported) Miscellaneous Medications Quetiapine Fumarate (Seroquel) 25 Mg Tablet, 25 MG PO, (Reported) Allergies Coded Allergies: risperidone (Verified Allergy, Intermediate, LEGS JERK, SWELLING, 08/30/18) tetracycline (Verified Allergy, Mild, VOMITING, RASH, 08/30/18) haloperidol (Verified Allergy, Unknown, unsure, 08/30/18) buspirone (Verified Adverse Reaction, Intermediate, HEART POUNDING, 08/30/18) methocarbamol (Verified Adverse Reaction, Intermediate, LEGS TINGLING, 08/30/18) trazodone (Verified Adverse Reaction, Intermediate, "REAL SICK", 08/30/18) ibuprofen (Verified Adverse Reaction, Mild, VOMITING, 08/30/18) tramadol (Verified Adverse Reaction, Mild, nausea, 08/30/18) zafirlukast (Verified Adverse Reaction, Mild, ACCOLATE - MOTION SICKNESS, 08/30/18) Past Medical History Medical History Medical History Opioid-induced CHronic Conspitationwith Complication of Ischemic Colitis, Hypertension, hypothyroidism, COPD not on home oxygen, obstructive sleep apnea with CPAP use at home, GERD, schizoaffective disorder, chronic kidney disease, irritable bowel syndrome, urge incontinence, hyperlipidemia, nonalcoholic fatty liver disease, vitamin D deficiency, chronic back pain, hemorrhoids, mood disorder, anxiety Surgical History Laparoscopic cholecystectomy, exploratory laparoscopy with lysis of adhesions recently, right breast biopsy, laparoscopic incisional hernia repair, cystoscopic nephrolithiasis removal, surgery on left foot, replacement of pre vious mesh in midline, colonoscopy with 2 small cecal polyps noted and extensive diverticulosis Family History One brother, sister and mom has diabetes, 3 sisters have cancer Family History Significant Family History: No pertinent family hx Social History * Smoker: former Smoker Alcohol: Denies Drugs: denies A-FIB/CHADSVASC A-FIB History Current/History of A-Fib/PAF?: No Review of Systems Constitutional: Denies: Chills, Fever Eyes: Denies: Pain ENT: Denies: Head Aches Skin: Denies: Rash, Lesions Pulmonary: Denies: Dyspnea, Cough Cardiovascular: Denies: Chest Pain, Palpitations Gastrointestinal: Reports: Abdominal Pain, Constipation; Denies: Nausea, Vomiting, Diarrhea Genitourinary: Denies: Dysuria Physical Examination General Exam: Positive: Alert, Cooperative, No Acute Distress Eye Exam: Positive: PERRLA ENT Exam: Positive: Atraumatic Neck Exam: Positive: Supple; Negative: JVD Chest Exam: Positive: Clear to auscultation, Normal air movement Heart Exam: Positive: Rate Normal, Regular Rhythm; Negative: Murmurs Abdomen Exam: Positive: Normal bowel sounds, Soft, Tenderness Extremity Exam: Positive: Normal pulses; Negative: Edema Skin Exam: Positive: Nl turgor and temperature; Negative: Rash, Breakdown Neuro Exam: Positive: Normal Gait Psych Exam: Positive: Mental status NL, Mood NL; Negative: Anxiety Vital Signs Vital Signs Date Time Temp Pulse Resp B/P (MAP) Pulse Ox O2 Delivery O2 Flow Rate FiO2 09/24/18 18:46 97.7 96 20 155/82 (106) 98 Room Air Laboratory Data Labs 24H Laboratory Tests 2 09/24/18 15:28: Nucleated Red Blood Cells % (auto) 0.0, Anion Gap 6L, Glomerular Filtration Rate 58.0, Lactic Acid Level 1.3, Calcium Level 8.5L, Aspartate Amino Transf (AST/SGOT) 31, Alanine Aminotransferase (ALT/SGPT) 23, Alkaline Phosphatase 99, Total Bilirubin 0.3, Direct Bilirubin < 0.1, Total Protein 6.7, Albumin 2.8L, Albumin/Globulin Ratio 0.72L, Lipase 196 09/24/18 17:40: Urine Color STRAW, Urine Appearance CLEAR, Urine pH 5.0, Urine Specific [place] 1.025, Urine Protein NEGATIVE, Urine Glucose (UA) NEGATIVE, Urine Ketones NEGATIVE, Urine Blood NEGATIVE, Urine Nitrite NEGATIVE, Urine Bilirubin NEGATIVE, Urine Urobilinogen 0.2, Urine Leukocyte Esterase TRACEH, Urine WBC (Auto) 9H, Urine RBC (Auto) 2, Urine Hyaline Casts (Auto) 0, Urine Bacteria (Auto) NEGATIVE, Urine Squamous Epithelial Cells 3, Urine Sperm (Auto) 09/24/18 19:35: Platelet Count, EDTA Free 282, Prothrombin Time 13.2, Prothromb Time International Ratio 0.99, Activated Partial Thromboplast Time 29.2 CBC/BMP Laboratory Tests 09/24/18 15:28 Red Blood Count 4.04, Mean Corpuscular Volume 95.3, Mean Corpuscular Hemoglobin 30.2, Mean Corpuscular Hemoglobin Concent 31.7 L, Red Cell Distribution Width 14.7 H Microbiology Microbiology 09/24/18 Urine Culture, Received Pending Assessment/Plan Recurrent Opioid-induced Chronic Constipation with complication of Ischemic Colitis - Keep in Observation. - Trial of Golytely followed by Dulcolax daily and Colace BID. - GI consult if needed. - Recommend appropriate bowel regimen on discharge such as "Dulcolax daily and Colace BID". Continue home meds for other chronic conditions. Plan / VTE VTE Prophylaxis Ordered?: No VTE Exclusion Mechanical Proph: Low Risk for VTE VTE Exclusion Pharmacological: At Low Risk for VTE Plan Anticipated Discharge: Home LULY REDDY MD September 24, 2018 20:21
[2018-09-24] MEDS ORDERED: BISACODYL 10 MG SUPP PR ONE (20:30)
[2018-09-24] MEDS ORDERED: MAALOX 30 ML SUSP *UDC PO PRN (20:30)
[2018-09-24] MEDS ORDERED: ACETAMINOPHEN TAB 650MG DOSE (2X325MG) PO PRN (20:30)
[2018-09-24] MEDS ORDERED: MOM 30ML SUSPENSION UDC PO PRN (20:30)
[2018-09-24] MEDS ORDERED: MIRTAZAPINE 15 MG TAB PO SCH (21:00)
[2018-09-24] MEDS ORDERED: GOLYTELY SOLN 4000 ML BTL PO ONE (21:00)
[2018-09-24] MEDS ORDERED: QUEtiapine FUMARATE 200 MG TAB PO SCH (21:00)
[2018-09-24] MEDS ORDERED: ASPE16CR TOP (21:47)
[2018-09-24] MEDS ORDERED: VITA100T12 PO (21:48)
[2018-09-24] MEDS ORDERED: C 50TAB PO (21:48)
[2018-09-24 22:00] VITALS: BP 134/88
[2018-09-24] MEDS: D5W/0.45% SODIUM CHLORIDE 1,000 ML IV SCH (22:32)
[2018-09-24] MEDS: DOCUSATE SODIUM 100 MG CAP PO SCH (22:32)
[2018-09-24] MEDS: PERCOCET 5MG/325MG TAB PO PRN (22:39)
[2018-09-25 06:00] VITALS: BP 131/85
[2018-09-25] MEDS: PERCOCET 5MG/325MG TAB PO PRN (06:29)
[2018-09-25] MEDS: D5W/0.45% SODIUM CHLORIDE 1,000 ML IV SCH (06:29)
[2018-09-25 07:06] LABS: HEMATOCRIT 35.5 % (36.0-47.0); HEMOGLOBIN 11.3 g/dl (12.0-15.5); MEAN CORPUSCULAR HEMOGLOBIN 30.1 pg (27.0-33.0); MEAN CORPUSCULAR HGB CONC 31.8 g/dl (32.0-36.5); MEAN CORPUSCULAR VOLUME 94.4 fl (80.0-96.0); PLATELET COUNT, AUTOMATED 314 10^3/uL (150-450); RED BLOOD COUNT 3.76 10^6/uL (4.00-5.40); WHITE BLOOD COUNT 5.6 10^3/uL (4.0-10.0)
[2018-09-25 07:28] LABS: BLOOD UREA NITROGEN 9 MG/DL (7-18); CALCIUM LEVEL 7.7 MG/DL (8.8-10.2); CARBON DIOXIDE LEVEL 27 MEQ/L (21-32); CHLORIDE LEVEL 111 MEQ/L (98-107); CREATININE FOR GFR 0.88 MG/DL (0.55-1.30); GLOMERULAR FILTRATION RATE > 60.0 (>45); GLUCOSE, FASTING 122 MG/DL (70-100); POTASSIUM SERUM 3.6 MEQ/L (3.5-5.1); SODIUM LEVEL 144 MEQ/L (136-145)
[2018-09-25] MEDS ORDERED: MIRALAX *UNIT DOSE* 17GM PACKET PO SCH (09:00)
[2018-09-25] MEDS ORDERED: BISACODYL 5 MG TAB PO SCH (09:00)
[2018-09-25] MEDS: DOCUSATE SODIUM 100 MG CAP PO SCH (09:53)
[2018-09-25] MEDS ORDERED: SENN8.6T28 PO (12:08)
[2018-09-25] MEDS ORDERED: COLA100C5 PO (12:08)
[2018-09-25] MEDS ORDERED: DULC10SU2 PR (12:08)
[2018-09-25] MEDS ORDERED: MIRA3350 PO (12:08)
--- NOTE | 2018-09-25 17:31 | IPNPDOC ---
Subjective Date Seen The patient was seen on 09/25/18. Subjective Chief Complaint/HPI Patient had 2 large and 2 small bowel movements. Her abdominal pain is much better. no fever or chills, no hematochezia or jorje. Tolerating clear liquids. no fever or chills, no chest pain ro sob , no nausea or vomiting. Objective Physical Examination General Exam: Positive: Alert, Cooperative, No Acute Distress Eye Exam: Positive: PERRLA ENT Exam: Positive: Atraumatic Neck Exam: Positive: Supple; Negative: JVD Chest Exam: Positive: Clear to auscultation, Normal air movement Heart Exam: Positive: Rate Normal, Regular Rhythm; Negative: Murmurs Abdomen Exam: Positive: Normal bowel sounds, Soft, Tenderness Extremity Exam: Positive: Normal pulses; Negative: Edema Skin Exam: Positive: Nl turgor and temperature; Negative: Rash, Breakdown Neuro Exam: Positive: Normal Gait Psych Exam: Positive: Mental status NL, Mood NL; Negative: Anxiety Assessment /Plan Assessment Ms. Guzman is a 63 years old woman with PMH of recent Ischemic colitis, chronic kidney disease stage III, COPD, Obesity, Hypothyroidism, Schizoaffective disorde r, Obstructive sleep apnea on chronic opioid therapy CHRONIC LOW BACK PAIN WITH BILATERAL SCIATICA, CHRONIC BILATERAL LEG PAIN, SACROILIAC JOINT PAIN, kidney stones, Hernia in the lower abdomen, diverticulosis, IBS, tubular adenomatous polyp, fatty liver, vit d def, hypertension, who was recently admitted ( 08/30- 09/07) for severe constipation requiring colonoscopy. During the procedure, bowel ischemia was identified. The pt was appropriately treated for ischemic colitis and discharged to f/u as OP. The pt returns with c/o lower abdominal crampy pain constipation. CTA abd shows moderate colitis and constipation unchanged from previous CT. CT impression was Moderate colitis picture affecting the descending colon with mural thickening and mild pericolonic stranding similar to the August 30, 2018 study and unchanged in distribution. Moderate colonic stool through the descending colon segment. Abdominal pain due to ischemic colitis and recurrent constipation give aggressive bowel regimen with god results started on miralax, senna , colace and prn dulcolax. high fiber diet improved after several bowel movements. Discussed with patient to have daily bowel movements as being on chronic opiates puts are at high risk of severe constipation and ischemic colitis. 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 Plan/VTE VTE Prophylaxis Ordered?: No VTE Exclusion Mechanical Proph: Low Risk for VTE VTE Exclusion Pharmacological: At Low Risk for VTE Plan Anticipated Discharge: Home VS, I&O, 24H, Fishbone Vital Signs/I&O Vital Signs Date Time Temp Pulse Resp B/P (MAP) Pulse Ox O2 Delivery O2 Flow Rate FiO2 09/25/18 06:59 18 09/25/18 06:00 96.9 90 131/85 (100) 94 09/24/18 21:43 Room Air I&O- Last 24 Hours up to 6 AM 09/25/18 06:00 Intake Total 1900 ml Balance 1900 ml Laboratory Data 24H LABS Laboratory Tests 2 09/24/18 17:40: Urine Color STRAW, Urine Appearance CLEAR, Urine pH 5.0, Urine Specific [place] 1.025, Urine Protein NEGATIVE, Urine Glucose (UA) NEGATIVE, Urine Ketones NEGATIVE, Urine Blood NEGATIVE, Urine Nitrite NEGATIVE, Urine Bilirubin NEGATIVE, Urine Urobilinogen 0.2, Urine Leukocyte Esterase TRACEH, Urine WBC (Auto) 9H, Urine RBC (Auto) 2, Urine Hyaline Casts (Auto) 0, Urine Bacteria (Auto) NEGATIVE, Urine Squamous Epithelial Cells 3, Urine Sperm (Auto) 09/24/18 19:35: Platelet Count, EDTA Free 282, Prothrombin Time 13.2, Prothromb Time International Ratio 0.99, Activated Partial Thromboplast Time 29.2 09/25/18 06:35: Nucleated Red Blood Cells % (auto) 0.0, Anion Gap 6L, Glomerular Filtration Rate > 60.0, Blood Urea Nitrogen 9, Creatinine 0.88, Sodium Level 144, Potassium Level 3.6#, Chloride Level 111H, Carbon Dioxide Level 27, Calcium Level 7.7L CBC/BMP Laboratory Tests 09/25/18 06:35 Red Blood Count 3.76 L, Mean Corpuscular Volume 94.4, Mean Corpuscular Hemoglobin 30.1, Mean Corpuscular Hemoglobin Concent 31.8 L, Red Cell Distribution Width 14.7 H, Calcium Level 7.7 L Microbiology Microbiology 09/24/18 Urine Culture - Final, Complete MITCHEL HESS MD September 25, 2018 17:31
== END 2018-09-25 12:55 | disposition home or self-care (01) ==
LOC: M ED 15:09 → M ED INP 20:21 → M MS5PR 21:50
PROVIDERS: ADMIT Internal Medicine; ATTEND Internal Medicine
DX: K59.03 Drug induced constipation (principal); T40.2X5A Adverse effect of other opioids, initial encounter; I12.9 Hypertensive chronic kidney disease with stage 1 through stage 4 chronic kidney disease, or unspecified chronic kidney disease; N18.3 Chronic kidney disease, stage 3 (moderate); G47.33 Obstructive sleep apnea (adult) (pediatric); E03.9 Hypothyroidism, unspecified; E55.9 Vitamin D deficiency, unspecified; K55.9 Vascular disorder of intestine, unspecified; K58.8 Other irritable bowel syndrome; M54.40 Lumbago with sciatica, unspecified side; K76.0 Fatty (change of) liver, not elsewhere classified; J44.9 Chronic obstructive pulmonary disease, unspecified; Z79.899 Other long term (current) drug therapy; Z88.8 Allergy status to other drugs, medicaments and biological substances; Z88.1 Allergy status to other antibiotic agents; Z87.891 Personal history of nicotine dependence
CPT/HCPCS: 36415; 74175; 80048; 80076; 81001; 83605; 83690; 84443; 85025; 85027; 85049; 85610; 85730; 87086; 93005; 96361; 96374; 99284; J2270; Q9967

== ENCOUNTER → 2018-10-02 | Outpatient (CLI) | payer OTHER ==
[~2018-10-02] MED LIST changes: +ASPE16CR TOP; +C 50TAB PO; +COLA100C5 PO; +DULC10SU2 PR; +MIRA3350 PO; +SENN8.6T28 PO; +SERO1TAB3 PO; +VITA100T12 PO
--- NOTE | 2018-10-02 12:49 | REP ---
Clinical: Lung screening. History nicotine dependence. Comparison: 07/29/2018, 09/25/2017 Technique: Axial low-dose noncontrast images from the thoracic inlet to the upper abdomen using lung screening technique. Findings: The lung arriaga are well-aerated. Minimal chronic-appearing fibroatelectatic changes in the lower lung zones identified and the previously noted areas of scattered consolidation on 07/29/2018 have resolved. No acute consolidation, significant nodule or mass lesion is appreciated. No pleural effusion/reaction or pneumothorax. Tracheobronchial tree is patent. Mediastinum demonstrates mild atherosclerotic changes of the coronary arteries without cardiomegaly. Impression: Lung-RADS category I. No nodule or suspicious abnormality. Management recommendations include annual low-dose CT evaluation. Electronically Signed by Kuldeep Borjas MD 10/02/2018 12:40 P
== END ==
LOC: M RAD 10:14
PROVIDERS: ATTEND Family Medicine
DX: F17.211 Nicotine dependence, cigarettes, in remission (principal)

== ENCOUNTER → 2018-10-23 | Outpatient (CLI) | payer OTHER ==
--- NOTE | 2018-10-23 09:45 | REP ---
LEFT FOOT, FOUR VIEWS: Four views of the left foot performed. Comparison made with the prior outside plain films 06/07/2016. This prior exam showed evidence of prior foot surgery with apparent bunionectomy and probable resection of the distal end of the 5th proximal phalanx and base of 1st proximal phalanx. There is a cortical step-off in the distal shaft of the first metatarsal. This could represent postsurgical change but a superimposed acute nondisplaced fracture could not totally be excluded. There is no other evidence of acute fracture or dislocation. There is significant narrowing of the 1st metatarsophalangeal joint with adjacent subchondral sclerosis. There is diffuse narrowing of the interphalangeal joints. IMPRESSION: Postsurgical changes with evidence of prior bunionectomy. There is a cortical step-off in the distal first metatarsal shaft which could be postsurgical change but a superimposed acute nondisplaced fracture cannot be excluded. There is moderately severe narrowing at the 1st metatarsophalangeal joint with adjacent subchondral sclerosis. There is mild hallux valgus deformity. Electronically Signed by Jamal Montero MD 10/23/2018 07:26 P
== END ==
LOC: M RAD 08:12
PROVIDERS: ATTEND Family Medicine
DX: M79.89 Other specified soft tissue disorders (principal); Z87.39 Personal history of other diseases of the musculoskeletal system and connective tissue

== ENCOUNTER → 2018-11-27 | Outpatient (CLI) | payer OTHER ==
--- NOTE | 2018-12-11 00:21 | ECWPNPC ---
PATIENT NAME: MAGALY CORTEZ : 1955 GENDER: FEMALE VISIT DATE: 11/27/2018 DISCHARGE DATE: 11/27/18 1036 VISIT LOCKED DATE TIME: PHYSICIAN: VAN CLAYTON RESOURCE: VAN CLAYTON REASON FOR APPOINTMENT 1. ADDRESS MEDS/ INCREASED PAIN HISTORY OF PRESENT ILLNESS HISTORY OF PRESENT ILLNESS: HERE FOR F/U AND MEDICATION MANAGEMENT OF CHRONIC PAIN MEDICATIONS.RATING PAIN VAS 10/10.PAIN IS ALL OVER HER BODY.STATES THAT HYDROCODONE IS NOT WORKING AND WANTS PERCOCET BACK.HAD A LONG CONVERSATION WITH PATIENT AND DICTATING MACHINE TYPIST WHO ACCOMPANIES HER TODAY REGARDING MEDICATIONS FOR CHRONIC PAIN.IM RECOMMENDING SHE USE MUSCLE RELAXANT AND PERCOCET INFREQUENTLY FOR SEVERE PAIN EPISODES.WE WILL BE REFERRING TO PALLIATIVE CARE FOR MANAGEMENT OF COMPLEX PAIN SYNDROME. PAIN THE PATIENT DESCRIBES THE PAIN... FALL RISK SCREENING: SCREENING :NO FALLS REPORTED IN THE LAST YEAR CURRENT MEDICATIONS TAKING KLONOPIN 1 MG TABLET 1 TABLET ORALLY THREE TIMES DAILY TAKING REMERON 30 MG TABLET 1 TABLET BEFORE BEDTIME IN THE EVENING ORALLY ONCE A DAY TAKING SEROQUEL 400 MG TABLET 1 TABLET AT BEDTIME ORALLY ONCE A DAY TAKING IPRATROPIUM-ALBUTEROL 0.5-2.5 (3) MG/3ML SOLUTION 3 ML INHALATION EVERY 6 HRS NEEDED TAKING PANTOPRAZOLE SODIUM 40 MG TABLET DELAYED RELEASE 1 TABLET ORALLY BID TAKING SYNTHROID 125 MCG TABLET 1 TABLET ORALLY ONCE A DAY TAKING TAMSULOSIN HCL 0.4 MG CAPSULE 1 CAPSULE ORALLY ONCE A DAY TAKING VITAMIN D (ERGOCALCIFEROL) 29518 UNIT CAPSULE 1 CAPSULE ORALLY WEEKLY TAKING ARNUITY ELLIPTA 100 MCG/ACT AEROSOL POWDER BREATH ACTIVATED 1 PUFF INHALATION ONCE A DAY TAKING LIDOCAINE HCL 4 % CREAM DIRECTED EXTERNALLY TO KNEES Q8H PRN TAKING LIDOCAINE HCL 3 % CREAM APPLY TO KNESS EVERY 8 HOURS NEEDED EXTERNALLY THREE TIMES DAILY NEEDED TAKING VITAMIN B12 100 MCG TABLET DIRECTED ORALLY TAKING SENNA S 8.6-50 MG TABLET 1 TABLET ORALLY TWICE A DAY TAKING COLACE 100 MG CAPSULE 1 CAPSULE ORALLY TWICE A DAY TAKING MIRALAX - POWDER 17 G DISSOLVED IN 8 OUNCES OF JUICE OR WATER ORALLY BID TAKING NORCO 10-325 MG TABLET 1 TABLET NEEDED ORALLY EVERY 6 HRS PRN MDD4 TAKING ZOFRAN 4 MG TABLET 1 TAB NEEDED FOR NAUSEA ORALLY EVERY 6 HOURS TAKING COMBIVENT 120-20 MCG/ACT AEROSOL 1 PUFFS INHALATION FOUR TIMES A DAY, NOTES: QID DOSING PER PULMONARY TAKING MATTRESS STANDARD HOSPITAL SIZE DIRECTED DX J44.9 TAKING TIZANIDINE HCL 2 MG TABLET 1/2 TAB TO 1 ORALLY Q8H PRN FOR SEVERE PAIN TAKING HYDROXYZINE HCL 25 MG TABLET 1 TABLET NEEDED ORALLY EVERY 8 HRS TAKING DICLOFENAC SODIUM 1 % GEL 4 PEA-SIZE AMOUNTS TO L SHOULDER TRANSDERMAL THREE TIMES DAILY NEEDED FOR PAIN TAKING VENTOLIN HFA 108 (90 BASE) MCG/ACT AEROSOL SOLUTION 2 PUFFS NEEDED INHALATION EVERY 4 HRS TAKING LISINOPRIL 10 MG TABLET 1 TABLET ORALLY ONCE A DAY TAKING MULTI FOR HER 50+ - TABLET ORALLY DAILY NOT-TAKING PERCOCET 7.5-325 MG TABLET 1 TABLET NEEDED ORALLY EVERY 6 HRS PRN MDD4, NOTES: RAN OUT - STATES NEIGHBOR STOLE THEM NOT-TAKING CYCLOBENZAPRINE HCL 10 MG TABLET 1 TABLET NEEDED ORALLY FOUR TIMES DAILY NEEDED NOT-TAKING GAVISCON 80-14.2 MG TABLET CHEWABLE 2 TABLETS AFTER MEALS AND AT BEDTIME NEEDED ORALLY FOUR TIMES A DAY NOT-TAKING STOOL SOFTENER 100 MG CAPSULE 1 CAPSULE NEEDED ORALLY 1 IN AM, 2 HS,, NOTES: OTC FAMILY WELLNESS STOOL SOFTNER NOT-TAKING TESSALON PERLES 100 MG CAPSULE 1 CAPSULE NEEDED ORALLY THREE TIMES A DAY NOT-TAKING NORCO 10-325 MG TABLET 1 TABLET NEEDED ORALLY EVERY 6 HRS PRN PAIN MDD=4 MEDICATION LIST REVIEWED AND RECONCILED WITH THE PATIENT PAST MEDICAL HISTORY GERD EMPHYSEMA - DR. ARAYA SCHIZOAFFECTIVE DISORDER CHRONIC LOW BACK PAIN WITH BILATERAL SCIATICA CHRONIC BILATERAL LEG PAIN SACROILIAC JOINT PAIN KIDNEY STONES HERNIA IN LOWER ABDOMEN STAGE 3 KIDNEY DISEASE HYPOTHYROIDISM IBS-D URGE INCONTINENCE HYPERLIPIDEMIA NAFLD VIT D DEFICIENCY MYRIAD MY RISK GENETIC TEST NEG 2018 AND LIFETIME BREAST CANCER RISK 10.5 % LOW DOSE LUNG CT NEGATIVE 09/26, 09/27 BULGING DISKS IN NECK HYPERTENSION FLACO - DR. ARAYA PNEUMONIA 07/2018 TORN ROTATOR CUFF - LEFT SHOULDER ALLERGIES TETRACYCLINE HCL: RASH, VOMITING - ALLERGY MOTRIN: NAUSEA - SIDE EFFECTS RISPERDAL: ANAPHYLAXIS - ALLERGY TRAZODONE: CONFUSION - SIDE EFFECTS TRAMADOL HCL: NAUSEA - SIDE EFFECTS [place] POTASSIUM: FELT TOO WARM, SALTY TASTE IN MOUTH - SIDE EFFECTS SURGICAL HISTORY STELLA FUNDOPLICATION FOR GERD CHOLECYSTECTOMY 1996 LT SHOULDER SURGERY 2000 HYSTERECTOMY TOTAL VAGINAL FOR DYSPARUNIA WITH UTERINE PROLPASE ; OVARIES WERE LEFT IN PLACE 06/01/97 HERNIA REPAIR 04/25 LEFT CATARACT 2015 ADHESION REMOVAL 03/27 BUNIONECTOMY AND HAMMER TOE REPAIR (3 TOES) - DR. ORTEZ 03/26/2017 ABDOMINAL HERNIA REPAIR X 2 06/20/[address] ALLEN IN [place] 2012 ? D&C LAPAROSCOPY 1977 D&C FOR POST HEMORRAGE 1977 D&C BTL 1982 ENDOSCOPY SANDHYA 09/03/2017 INTESTINAL MASS REMOVAL 12/16/2017 CATARAC SURGERY 02/2018 COLONOSCOPY - DR. ARTHUR, SUBOPTIMAL PREP 04/2018 COLONOSCOPY - 2 POLYPS REMOVED, REPEAT 5 YEARS - DR. ARTHUR 06/2018 COLONOSCOPY- [facility] 08/2018 FAMILY HISTORY FATHER: , COPD MOTHER: , COPD SIBLINGS: SOME SIBLINGS ; ONE DUE TO NON [place]INS LYMPHOMA AND ONE TO LUNG CANCER; THE SISTER WHO OF LUNG CANCER HAD BREAST CANCER IN HER 40'S ; A SISTER HAS SKIN CANCER; ONE SISTER HAS STAGE 4 LIVER DISEASE 2 BROTHER(S) , 5 SISTER(S) . 1 SON(S) - HEALTHY. NO KNOWN FAMILY HISTORY OF ANY UROLOGICALLY RELATED DISEASES\\\\\\\/CANCERS. DENIES KNOWN FAMILY HISTORY OF COLON CANCER. SOCIAL HISTORY GENERAL: TOBACCO USE ARE YOU A:CURRENT SMOKER PT STATES SHE IS TRYING TO QUIT SMOKING, HAS PATCHES, STATES SHE STARTED SMOKING AGAIN BUT WANTS TO START CUTTING BACK AGAIN. 11/27/18 JS ARE YOU INTERESTED IN QUITTING?THINKING ABOUT QUITTING PREVIOUS QUIT ATTEMPTS?YES, WITHIN THE LAST 6 MONTHS. COUNSELED THE PATIENT ON SMOKING CESSATION, EDUCATION [id number]/19/2019 ADDITIONAL FINDINGS: TOBACCO USERLIGHT CIGARETTE SMOKER ((1-9 CIGS/DAY) SMOKING CESSATION INFORMATION GIVEN10/19/2018 HIV / HEP-C SCREENING HIV TEST OFFERED TO PATIENT:YES DATE OFFERED:07/03/2018 TEST ACCEPTED:YES HEP-C TEST OFFERED TO PATIENT:YES DATE OFFERED:04/25/2017 TEST ACCEPTED:NO REASON:PATIENT DECLINED BROCHURE PROVIDED TO PATIENTYES OTHERS AT HOME: NONE. EDUCATION LEVEL OF EDUCATION:NOT FINISHED HIGH SCHOOL GED DIET: REGULAR. LANGUAGE LANGUAGES SPOKEN:ESTONIAN DOMESTIC VIOLENCE STATUS:SINGLE RECREATIONAL DRUG USE DRUG USE? NO. EXERCISE: NO REGULAR EXERCISE. LEARNING BARRIERS / SPECIAL NEEDS CHANGE FROM LAST VISIT?NO BARRIERS TO LEARNING?NO HEARING IMPAIRED?NO VISION IMPAIRED?YES COGNITIVELY IMPAIRED?NO :CORRECTIVE LENSES READINESS TO LEARN?YES LEARNING PREFERENCES?NO LEARNING CAPABILITIES PRESENT?YES EMOTIONAL BARRIERS?NO SPECIAL DEVICES?YES :WALKER CAD OPERATOR NEEDED?NO PAIN CLINIC PFS, CLERGY, PUBLIC HEALTH REFERRALS PFS REFERRAL NEEDED?NO CLERGY REFERRAL NEEDED?NO PUBLIC HEALTH REFERRAL NEEDED?NO HAS THE PATIENT BEEN EDUCATED REGARDING HIS/HER PLAN OF CARE?YES HAS THE PATIENT BEEN EDUCATED REGARDING PAIN, THE RISK FOR PAIN, THE IMPORTANCE OF EFFECTIVE PAIN MANAGEMENT, AND THE PAIN ASSESSMENT PROCESS?YES LATEX QUESTIONNAIRE LATEX ALLERGY : HAVE YOU EVER DEVELOPED ANY TYPE OF REACTION AFTER HANDLING LATEX PRODUCTS SUCH RUBBER GLOVES, CONDOMS, DIAPHRAGMS, BALLOONS, SOCKS, OR UNDERWEAR?NO LATEX ALLERGY : HAVE YOU EVER DEVELOPED ANY TYPE OF REACTION DURING OR AFTER DENTAL APPOINTMENT, VAGINAL/RECTAL EXAMINATION, SURGICAL PROCEDURE, OR ANY OTHER EXPOSURE?NO LATEX RISK : HAVE YOU EVER HAD ANY DIFFICULTY BREATHING OR HIVES AFTER EATING OR HANDLING ANY FRUITS, OR VEGETABLES; SUCH KIWI, BANANAS, STONE FRUITS, OR CHESTNUTSNO LATEX RISK : DO YOU HAVE A PREVIOUS PERSONAL HISTORY OF MORE THAN NINE SURGERIES, SPINA BIFIDA, OR REPEATED CATHERIZATIONS? YES - PLEASE INDICATE : > 9 SURGERIES LATEX RISK : ARE YOU FREQUENTLY EXPOSED TO LATEX PRODUCTS IN YOUR OCCUPATION?NO DATE ASKED : 08/18/2018 CAFFEINE CAFFEINE USE?YES HOW OFTEN AND HOW MUCH? 4-5 CUPS COFFEE DAILY ADVANCE DIRECTIVE ADVANCE DIRECTIVE DISCUSSED WITH PATIENT:YES PATIENT STATES NO HCP, PT HAS INFORMATION ON HCP AND STATES SHE JUST HASN'T FILLED THEM OUT YET. PATIENT DECLINED HELP IN FILLING OUT FORM. GNOSTICIST [id number] JAINISM MARITAL STATUS: . ALCOHOL SCREENING DID YOU HAVE A DRINK CONTAINING ALCOHOL IN THE PAST YEAR?NO POINTS0 INTERPRETATIONNEGATIVE OCCUPATION: DISABLED. SEXUAL HX HAD SEX IN THE LAST 12 MONTHS (VAGINAL, ORAL, OR ANAL)?NO HAVE YOU EVER HAD AN STD?NO REVIEWED WITH PT 01/16/18 1310 LASREVIEWED WITH PT 02/02/18 0930 LASREVIEWED WITH PATIENT 02/26/18 1201 JSREVIEWED WITH PT 03/20/18 1017 BVREVIEWED WITH PT 05/01/18 0950 LASREVIEWED WITH PATIENT 11/27/18 0939 JS06/02/18 REVIEWED WITH PT. AD. HOSPITALIZATION/MAJOR DIAGNOSTIC PROCEDURE PNEUMONIA PSYCHIATRIC 1996 CONSTIPATION/BLOOD IN STOOL 10/10/2017 SURGURIES PNUEMONIA, INFECTION, PARTIAL BOWEL BLOCKAGE 07/2018 [facility]- COLITIS 08/30/2018 CONSTIPATION 09/24/2018 REVIEW OF SYSTEMS REVIEWED BY: PROVIDER: VAN ROCHA . CONSTITUTIONAL: ANY CHANGE IN YOUR MEDICAL CONDITION? NO . CHILLS NO . FEVER NO . INFECTION: DO YOU HAVE NEW INFECTIONS? NO . DO YOU HAVE HISTORY OF MRSA? NO . MUSCULOSKELETAL: ANY NEW PATTERNS OF PAIN OR NUMBNESS? YES, STATES PAIN INCREASED - LEFT SHOULDER THROBBING, A LOT OF MUSCLE SPASMS IN BACK, PAIN IN BILATERAL ARMS . GASTROENTEROLOGY: ANY NEW CHANGE IN BOWEL CONTROL? YES, STATES CONSTIPATION - RECEIVED MEDICATION RECENTLY AND IT HAS IMPROVED. ALSO STATES OCCASSIONAL INCONTINENCE OF BOWELS . GENITOURINARY: ANY NEW CHANGE IN BLADDER CONTROL? NO . IS THERE A CHANCE YOU COULD BE ? NO . HEMATOLOGY/LYMPH: DO YOU TAKE ANY BLOOD THINNERS? (FOR EXAMPLE- COUMADIN, PLAVIX, AGGRENOX, PLATEL, PRADAXA, OR XARELTO) NO . WHEN WAS YOUR LAST DOSE? DATE: TIME: . NEUROLOGY: HAVE YOU FALLEN IN THE PAST 12 MONTHS? YES, STATES FALL PRIOR TO LAST VISIT, DISCUSSED AT PREVIOUS VISIT . ANY NEW EXTREMITY NUMBNESS OR WEAKNESS? YES, STATES NEW WEAKNESS TO LEFT ARM AND WEAKNESS TO BILATERAL LEGS . CARDIOLOGY: DO YOU HAVE A PACEMAKER OR DEFIBRILLATOR? NO . RESPIRATORY: HAVE YOU BEEN SICK IN THE PAST WEEK? NO . FEVER NO . FLU LIKE SYMPTOMS? NO . COUGH NO . INTEGUMENTARY: DO YOU HAVE ANY RASHES OR OPEN SORES? NO . ALLERGIC/IMMUNO: ARE YOU ALLERGIC TO IV DYE? NO . ANY NEW ALLERGIES? NO . PSYCHIATRIC: DO YOU HAVE THOUGHTS OF HURTING YOURSELF OR SOMEONE ELSE? NO . ARE YOU ABUSED, NEGLECTED, OR IN AN UNSAFE ENVIRONMENT? NO . ENDOCRINOLOGY: ARE YOU DIABETIC? NO . OTHER: DO YOU NEED ANY PRESCRIPTIONS? YES . IF YES, PLEASE LIST: ____PATIENT STATES WHATEVER VAN SAYS . ANY NEW PROBLEMS WITH YOUR MEDICATIONS? NO . WHEN DID YOU LAST EAT? ____ . WHEN DID YOU LAST DRINK? ____ . WHAT DID YOU LAST DRINK? ____ . NAME OF PERSON DRIVING YOU HOME? ____ . DO YOU HAVE ANY OTHER QUESTIONS OR CONCERNS YES, PATIENT WOULD LIKE PERCOCET, SHE WAS PRESCRIBED IT BUT STATES HER NEIGHTBOR STOLE THEM SO SHE HAS BEEN OUT. DISCUSSED WAYS TO KEEP HER MEDICATIONS SAFE AND THAT THEY NEEDED TO BE KEPT IN A LOCK BOX. PATIENT WOULD ALSO LIKE TO DISCUSS INCREASING THE TIZANIDINE TO 3X/DAY . VITAL SIGNS WT 186. LBS, HT 63 IN, BMI 32.94 INDEX, BP 138/73 MM HG, HR 91 /MIN, RR 18 /MIN, TEMP 97.1 F, OXYGEN SAT % 96%, SAFE IN ENV? (Y/N) YES, NA INITIALS NC 09:31, REVIEWED BY: MARY. EXAMINATION GENERAL EXAMINATION: GENERALAWAKE,ALERT ,PLEAASANT . PSYCHAFFECT NORMAL . LUNGS:LUNG OLIVER ARE CLEAR TO AUSCULTATION BILATERALLY. GOOD MOVEMENT OF AIR . HEART:S1, S2 IN A REGULAR RATE AND RHYTHM. NO SIGNIFICANT MURMURS, RUBS OR GALLOPS NOTED . ASSESSMENTS PAIN SYNDROME, CHRONIC - G89.4 (PRIMARY) TREATMENT PAIN SYNDROME, CHRONIC STOP NORCO TABLET, 10-325 MG, 1 TABLET NEEDED, ORALLY, EVERY 6 HRS PRN MDD4 REFILL TIZANIDINE HCL TABLET, 2 MG, 1/2 TAB TO 1, ORALLY, Q8H PRN FOR SEVERE PAIN, 30 DAY(S), 60, REFILLS 2 REFILL PERCOCET TABLET, 7.5-325 MG, 1 TABLET NEEDED, ORALLY, Q6H PRN MDD4 #110 TABS SHOULD LAST 30 DAYS, 30 DAY(S), 110, REFILLS 0, NOTES: RAN OUT - STATES NEIGHBOR STOLE THEM NOTES: DUE TO PATIENTS MULTIPLE COMORBIDITIES AND CHRONIC PAIN IM RECOMMENDING REFERRAL TO [facility] [place] TO MANAGE HER CHRONIC PAIN.SHE IS RECEPTIVE TO THISREFER TO [facility], ISTOP REGISTRY REVIEWED AND DEMONSTRATES COMPLLIANCE. , RISKS AND BENEFITS OF NARCOTIC/OPIOD MEDICATIONS WERE REVIEWED WITH PATIENT - THIS INCLUDES BUT IS NOT LIMITED TO RISK OF DEPENDANCE/DEVELOPMENT OF ADDICTION, MOOD DISTURBANCE AND DEPRESSION, OSTEOPOROSIS, HORMONAL AND LABIDAL CHANGES, RESPIRATORY DEPRESSION AND . PATIENT IS ADVISED NOT TO DRIVE OR DRINK ALCOHOL WHILE ON THESE MEDICATIONS. PROCEDURE CODES FA211 ESTABILISHED PATIENT [facility] CHARGE DISPOSITION & COMMUNICATION FOLLOW UP NO F/U NECESSARY (REASON: REFER TO [facility]) ELECTRONICALLY SIGNED BY AJ IBARRA ON 12/10/2018 AT 11:06 AM EDT DISCLAIMER : THIS IS A VISIT SUMMARY EXTRACTED FROM THE [employer] CHART. IT IS NOT A COPY OF THE [employer] PROGRESS NOTE. PHILLIP
== END ==
LOC: M PAIN 09:30
PROVIDERS: ATTEND Nurse Practitioner Family
DX: G89.4 Chronic pain syndrome (principal); K21.9 Gastro-esophageal reflux disease without esophagitis; J43.9 Emphysema, unspecified; F25.9 Schizoaffective disorder, unspecified; M54.41 Lumbago with sciatica, right side; M54.42 Lumbago with sciatica, left side; N18.3 Chronic kidney disease, stage 3 (moderate); M53.3 Sacrococcygeal disorders, not elsewhere classified; E03.9 Hypothyroidism, unspecified; K58.1 Irritable bowel syndrome with constipation; N39.41 Urge incontinence; E78.5 Hyperlipidemia, unspecified; K76.0 Fatty (change of) liver, not elsewhere classified; E55.9 Vitamin D deficiency, unspecified; M50.20 Other cervical disc displacement, unspecified cervical region; I12.9 Hypertensive chronic kidney disease with stage 1 through stage 4 chronic kidney disease, or unspecified chronic kidney disease; G47.33 Obstructive sleep apnea (adult) (pediatric); F17.210 Nicotine dependence, cigarettes, uncomplicated; Z90.49 Acquired absence of other specified parts of digestive tract; Z98.42 Cataract extraction status, left eye; Z90.710 Acquired absence of both cervix and uterus; Z79.891 Long term (current) use of opiate analgesic; Z79.899 Other long term (current) drug therapy; Z88.1 Allergy status to other antibiotic agents; Z88.8 Allergy status to other drugs, medicaments and biological substances; Z88.5 Allergy status to narcotic agent

== ENCOUNTER → 2018-11-30 | Outpatient (REF) | payer OTHER ==
[2018-11-30 12:42] LABS: CALCIUM LEVEL 9.2 MG/DL (8.8-10.2); CREATININE FOR GFR 1.3 MG/DL (0.55-1.30); GLOMERULAR FILTRATION RATE 44.3 (>45); POTASSIUM SERUM 4.3 MEQ/L (3.5-5.1); THYROID STIMULATING HORMONE 3.47 uIU/ML (0.358-3.740)
== END ==
LOC: M SFHCPLAZ 10:12
PROVIDERS: ATTEND Family Medicine
DX: I10 Essential (primary) hypertension (principal); N18.3 Chronic kidney disease, stage 3 (moderate); E03.9 Hypothyroidism, unspecified

== ENCOUNTER 2019-01-02 17:06 | Emergency (ER) | payer OTHER ==
[2019-01-02] MEDS ORDERED: TIZA2CAP PO (17:40)
[2019-01-02] MEDS ORDERED: dexameTHASONE 20 MG/5 ML VIAL (J1100) IV ONE (18:15)
[2019-01-02] MEDS ORDERED: ALBUTEROL SULFATE 2.5 MG/0.5 ML INH NEB SOLN INH ONE (18:15)
[2019-01-02] MEDS ORDERED: IPRATROPIUM 0.5MG/ALBUTEROL 2.5MG INH SOL UD 3ML (DUONEB)(J7620) NEB ONE (18:15)
[2019-01-02 19:16] LABS: BASO # 0.1 10^3/uL (0.0-0.2); BASO % 1.4 % (0.0-1.0); EOS # 0.4 10^3/uL (0.0-0.50); EOS % 5.8 % (0.0-3.0); HEMATOCRIT 43.5 % (36.0-47.0); LYMPH # 2.7 10^3/uL (1.5-4.5); LYMPH % 36.2 % (24.0-44.0); MEAN CORPUSCULAR HEMOGLOBIN 29.8 pg (27.0-33.0); MEAN CORPUSCULAR HGB CONC 32.2 g/dl (32.0-36.5); MEAN CORPUSCULAR VOLUME 92.6 fl (80.0-96.0); MONO # 0.7 10^3/uL (0.0-0.8); MONO % 9.9 % (0.0-5.0); NEUTROPHILS # 3.4 10^3/uL (1.8-7.7); NEUTROPHILS % 46.2 % (36.0-66.0); PLATELET COUNT, AUTOMATED 183 10^3/uL (150-450); WHITE BLOOD COUNT 7.4 10^3/uL (4.0-10.0)
[2019-01-02 20:00] LABS: INR 0.87; PROTHROMBIN TIME 11.5 SECONDS (11.8-14.0)
[2019-01-02 20:26] LABS: ALT/SGPT 43 U/L (12-78); BLOOD UREA NITROGEN 13 MG/DL (7-18); CALCIUM LEVEL 8.3 MG/DL (8.8-10.2); CARBON DIOXIDE LEVEL 25 MEQ/L (21-32); CHLORIDE LEVEL 108 MEQ/L (98-107); CK-MB VALUE MASS 1.9 NG/ML (<3.6); CPK CREATINE PHOSPHOKINASE 143 U/L (26-192); CREATININE FOR GFR 1.26 MG/DL (0.55-1.30); GLUCOSE, FASTING 83 MG/DL (70-100); MB/CK RELATIVE INDEX 1.33 (< OR =4); POTASSIUM SERUM 4.6 MEQ/L (3.5-5.1); SODIUM LEVEL 141 MEQ/L (136-145)
[2019-01-02 20:27] LABS: ALBUMIN 3.1 GM/DL (3.2-5.2); BILIRUBIN,DIRECT < 0.1 MG/DL (0.0-0.2); BILIRUBIN,TOTAL 0.2 MG/DL (0.2-1.0); NT-PRO BNP 18 PG/ML (<125); THYROXINE (T4) 6.5 UG/DL (4.5-12.0); TOTAL PROTEIN 6.5 GM/DL (6.4-8.2); TROPONIN I < 0.02 NG/ML (< 0.10)
[2019-01-02] MEDS ORDERED: CEFD1CAP8 PO (20:51)
[2019-01-02] MEDS ORDERED: PRED20TA PO (20:51)
[2019-01-02] MEDS ORDERED: NICO21DI37 TOP (20:52)
[2019-01-02 21:00] VITALS: BP 124/74
[2019-01-02] MEDS ORDERED: CEFDINIR 300 MG CAP (OMNICEF) PO ONE (21:00)
--- NOTE | 2019-01-03 07:16 | ECGEPIP ---
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
--- NOTE | 2019-01-03 10:51 | REP ---
The portable chest, 06:31 p.m., single AP view with the patient upright: Comparison is 06/11/2018. The lung arriaga are clear. The cardiac size is normal. The patricio, mediastinum, and skeletal structures are unremarkable. Impression: Negative portable chest. There is no interval change. Electronically Signed by Jamal Evans MD 01/03/2019 08:27 A
== END 2019-01-02 21:42 | disposition home or self-care (01) ==
LOC: EDBD 17:06 → M ED 17:06
DX: J44.1 Chronic obstructive pulmonary disease with (acute) exacerbation (principal); I12.9 Hypertensive chronic kidney disease with stage 1 through stage 4 chronic kidney disease, or unspecified chronic kidney disease; E78.5 Hyperlipidemia, unspecified; M54.9 Dorsalgia, unspecified; K21.9 Gastro-esophageal reflux disease without esophagitis; N18.3 Chronic kidney disease, stage 3 (moderate); K75.81 Nonalcoholic steatohepatitis (NASH); E03.9 Hypothyroidism, unspecified; F17.200 Nicotine dependence, unspecified, uncomplicated; Z88.8 Allergy status to other drugs, medicaments and biological substances; Z88.6 Allergy status to analgesic agent; Z88.1 Allergy status to other antibiotic agents; Z88.5 Allergy status to narcotic agent; Z79.899 Other long term (current) drug therapy; Z79.51 Long term (current) use of inhaled steroids
CPT/HCPCS: 36415; 71045; 80048; 80076; 82550; 82553; 83880; 84436; 84443; 85025; 85610; 87040; 87070; 87077; 87184; 87205; 93005; 93041; 94640; 94760; 96374; 99284; J1100

== ENCOUNTER → 2019-01-14 | Outpatient (REF) | payer OTHER ==
[~2019-01-14] MED LIST changes: +CEFD1CAP8 PO; +CLON0.5T2 PO; -CLON0.5T8 PO; +NICO21DI37 TOP
[2019-01-14 14:06] LABS: BASO # 0.1 10^3/uL (0.0-0.2); BASO % 0.5 % (0.0-1.0); EOS # 0.3 10^3/uL (0.0-0.5); EOS % 2.2 % (0.0-3.0); HEMATOCRIT 44.7 % (36.0-47.0); HEMOGLOBIN 14.4 g/dl (12.0-15.5); LYMPH # 3.2 10^3/uL (1.5-5.0); LYMPH % 26.7 % (24.0-44.0); MEAN CORPUSCULAR HEMOGLOBIN 29.7 pg (27.0-33.0); MEAN CORPUSCULAR HGB CONC 32.2 g/dl (32.0-36.5); MEAN CORPUSCULAR VOLUME 92.2 fl (80.0-96.0); MONO # 0.9 10^3/uL (0.0-0.8); MONO % 7.4 % (0.0-5.0); NEUTROPHILS # 7.4 10^3/uL (1.5-8.5); NEUTROPHILS % 62.4 % (36.0-66.0); PLATELET COUNT, AUTOMATED 260 10^3/uL (150-450); RED BLOOD COUNT 4.85 10^6/uL (4.00-5.40); WHITE BLOOD COUNT 11.9 10^3/uL (4.0-10.0)
[2019-01-14 14:20] LABS: INR 0.92; PARTIAL THROMBOPLASTIN TIME 27.7 SECONDS (25.0-38.4); PROTHROMBIN TIME 12.1 SECONDS (11.8-14.0)
== END ==
LOC: M SFHCPLAZ 11:41
PROVIDERS: ATTEND Family Medicine
DX: T14.8XXA Other injury of unspecified body region, initial encounter (principal); Y92.9 Unspecified place or not applicable

== ENCOUNTER → 2019-02-25 | Outpatient (CLI) | payer OTHER ==
[~2019-02-25] MED LIST changes: -CLON0.5T2 PO; +CLON0.5T8 PO
--- NOTE | 2019-02-26 05:20 | REP ---
Clinical: Symptoms related to atherosclerotic disease. Technique: Real time montero scale and color Doppler evaluation of the bilateral lower extremity arterial vasculature using linear high frequency transducer. Findings: Montero scale and color images demonstrate minimal bilateral atheromatous plaquing without narrowing or focal stenosis/occlusion identified. Doppler interrogation demonstrates normal triphasic arterial wave forms and velocities bilaterally. Peak systolic velocities (cm/sec) RIGHT LEFT Common femoral artery 136 89 Profunda femoris 107 55 SFA (proximal) 96 80 SFA (mid) 60 78 SFA (distal) 58 75 Popliteal artery 49 47 ROSALIE (prox.) 27 32 Tibioperoneal trunk 54 42 DIMETHYLANILINE SULFATOR OPERATOR (prox.) 46 37 DIMETHYLANILINE SULFATOR OPERATOR (distal) 53 48 ROSALIE (distal) 65 42 Impression: Minimal scattered atheromatous plaquing without narrowing, stenosis or occlusion. Electronically Signed by Kuldeep Borjas MD 02/26/2019 05:11 A
== END ==
LOC: M RAD 07:34
PROVIDERS: ATTEND Surgery Vascular Surgery
DX: I70.203 Unspecified atherosclerosis of native arteries of extremities, bilateral legs (principal)

== ENCOUNTER → 2019-03-09 | Outpatient (REF) | payer OTHER ==
[2019-03-09 13:48] LABS: BASO # 0.1 10^3/uL (0.0-0.2); BASO % 1.2 % (0.0-1.0); EOS # 0.2 10^3/uL (0.0-0.5); EOS % 3.5 % (0.0-3.0); HEMATOCRIT 44.5 % (36.0-47.0); HEMOGLOBIN 14.3 g/dl (12.0-15.5); LYMPH # 2.4 10^3/uL (1.5-5.0); LYMPH % 35.4 % (24.0-44.0); MEAN CORPUSCULAR HEMOGLOBIN 30.4 pg (27.0-33.0); MEAN CORPUSCULAR HGB CONC 32.1 g/dl (32.0-36.5); MEAN CORPUSCULAR VOLUME 94.5 fl (80.0-96.0); MONO # 0.6 10^3/uL (0.0-0.8); MONO % 9.2 % (0.0-5.0); NEUTROPHILS # 3.5 10^3/uL (1.5-8.5); NEUTROPHILS % 50.6 % (36.0-66.0); PLATELET COUNT, AUTOMATED 200 10^3/uL (150-450); RED BLOOD COUNT 4.71 10^6/uL (4.00-5.40); WHITE BLOOD COUNT 6.9 10^3/uL (4.0-10.0)
[2019-03-09 13:50] LABS: ALBUMIN 3.8 GM/DL (3.2-5.2); ALT/SGPT 27 U/L (12-78); BILIRUBIN,TOTAL 0.4 MG/DL (0.2-1.0); BLOOD UREA NITROGEN 14 MG/DL (7-18); CARBON DIOXIDE LEVEL 26 MEQ/L (21-32); CHLORIDE LEVEL 107 MEQ/L (98-107); CREATININE FOR GFR 1.32 MG/DL (0.55-1.30); GLOMERULAR FILTRATION RATE 43.6 (>45); GLUCOSE, FASTING 90 MG/DL (70-100); POTASSIUM SERUM 4.2 MEQ/L (3.5-5.1); RHEUMATOID FACTOR QUANT < 10.0 IU/ML (<15.0); SODIUM LEVEL 138 MEQ/L (136-145); TOTAL PROTEIN 7.4 GM/DL (6.4-8.2)
[2019-03-09 13:56] LABS: DRVV SCREEN 37.6 SEC
[2019-03-09 14:00] LABS: PTT LUPUS TYPE ANTICOAG SCREEN 0.9 (0-1.2)
[2019-03-09 14:24] LABS: VITAMIN B12 LEVEL 1354 PG/ML
[2019-03-09 14:26] LABS: FOLATE > 24.0 NG/ML
[2019-03-09 15:27] LABS: HEMOGLOBIN A1c 5.9 %
[2019-03-09 16:15] LABS: ERYTHROCYTE SEDIMENTATION RATE 16 mm/hr (0-30)
[2019-03-11 12:41] LABS: ALBUMIN % 58.1 % (55.8-66.1); ALPHA-1-GLOBULIN % 4.1 % (2.9-4.9); ALPHA-2-GLOBULINS 0.73 GM/DL (0.42-0.99); ALPHA-2-GLOBULINS % 9.9 % (7.1-11.8); BETA-1-GLOBULINS % 6.7 % (4.7-7.2); BETA-2-GLOBULINS 0.34 GM/DL (0.19-0.55); BETA-2-GLOBULINS % 4.6 % (3.2-6.5); GAMMA GLOBULIN % 16.6 % (11.1-18.8)
[2019-03-11 12:42] LABS: GAMMA GLOBULINS 1.23 GM/DL (0.65-1.58)
[2019-03-14 00:06] LABS: ANCA-ATYPICAL <1:20 titer (Neg:<1:20); ANTI DS-DNA AB <1:10 titer (.); ANTINUCLEAR ANTIBODIES DIRECT Negative (Negative); CERULOPLASMIN 26.4 mg/dL (19.0-39.0); COPPER PLASMA 109 ug/dL (72-166); CYTOPLASMIC NEUTROP AB ANCA-C <1:20 titer (Neg:<1:20); LEAD BLOOD ADULT 5 ug/dL (0-4); MERCURY LEVEL None Detected ug/L (0.0-14.9); PERINUCLEAR AB ANCA-P <1:20 titer (Neg:<1:20); SJOGREN'S ANTI SS-A <0.2 AI (0.0-0.9); SJOGREN'S ANTI SS-B <0.2 AI (0.0-0.9); VITAMIN B1 LEVEL WHOLE BLOOD 157.3 nmol/L (66.5-200.0); VITAMIN B6,PYRIDOXAL PHOSPHATE 32.3 ug/L (2.0-32.8); VITAMIN E(ALPHA TOCOPHEROL) 15.3 mg/L (9.0-29.0)
== END ==
LOC: M LABNEURO 09:39
PROVIDERS: ATTEND Psychiatry & Neurology Neurology
DX: G62.9 Polyneuropathy, unspecified (principal)

== ENCOUNTER → 2019-06-09 | Outpatient (REF) | payer OTHER ==
[~2019-06-09] MED LIST changes: +CLON0.5T2 PO; -CLON0.5T8 PO
[2019-06-09 16:00] LABS: APPEARANCE, URINE CLEAR (CLEAR); BACTERIA, URINE AUTO NEGATIVE (NEGATIVE); BILIRUBIN, URINE AUTO NEGATIVE (NEGATIVE); BLOOD, URINE BLOOD NEGATIVE (NEGATIVE); COLOR, URINE YELLOW (YELLOW); GLUCOSE, URINE (UA) AUTO NEGATIVE (NEGATIVE); KETONE, URINE AUTO NEGATIVE (NEGATIVE); LEUKOCYTE ESTERASE, URINE AUTO NEGATIVE (NEGATIVE); NITRITE, URINE AUTO NEGATIVE (NEGATIVE); PROTEIN, URINE AUTO NEGATIVE (NEGATIVE); RBC, URINE AUTO 2 /HPF (0-3); SPECIFIC GRAVITY URINE AUTO 1.006 (1.002-1.035); SQUAMOUS EPITHELIAL CELL UR AU 1 /HPF (0-6); UROBILINOGEN, URINE AUTO 0.2 mg/dL (0.0-2.0); WBC, URINE AUTO 0 /HPF (0-3)
== END ==
LOC: M SFHCPLAZ 15:40
PROVIDERS: ATTEND Nurse Practitioner Family
DX: R30.0 Dysuria (principal)

== ENCOUNTER → 2019-06-15 | Outpatient (CLI) | payer OTHER ==
--- NOTE | 2019-06-15 13:40 | REPPI ---
PA and lateral chest: Comparison is 06/11/2018. There is diffuse mild interstitial coarsening, similar to the prior study, compatible with chronic lung disease. There are no focal infiltrates or effusions. No masses are identified. Cardiac size is normal. The patricio, mediastinum, skeletal structures are unremarkable. Impression: Chronic mild interstitial coarsening, unchanged. Otherwise, negative PA and lateral chest. Electronically Signed by Jamal Evans MD 06/15/2019 01:31 P
== END ==
LOC: M PLAIMG 09:23
PROVIDERS: ATTEND Family Medicine
DX: R06.01 Orthopnea (principal)

== ENCOUNTER → 2019-06-15 | Outpatient (REF) | payer OTHER ==
[~2019-06-15] MED LIST changes: +GABA-845 PO
[2019-06-15 11:39] LABS: BASO # 0.1 10^3/uL (0.0-0.2); BASO % 0.5 % (0.0-1.0); EOS # 0.1 10^3/uL (0.0-0.5); EOS % 0.7 % (0.0-3.0); HEMATOCRIT 44.8 % (36.0-47.0); LYMPH # 1.7 10^3/uL (1.5-5.0); LYMPH % 15.1 % (24.0-44.0); MEAN CORPUSCULAR HEMOGLOBIN 29.4 pg (27.0-33.0); MEAN CORPUSCULAR HGB CONC 31.3 g/dl (32.0-36.5); MEAN CORPUSCULAR VOLUME 93.9 fl (80.0-96.0); MONO # 0.7 10^3/uL (0.0-0.8); MONO % 6.7 % (0.0-5.0); NEUTROPHILS # 8.4 10^3/uL (1.5-8.5); NEUTROPHILS % 75.9 % (36.0-66.0); PLATELET COUNT, AUTOMATED 224 10^3/uL (150-450); RED BLOOD COUNT 4.77 10^6/uL (4.00-5.40); WHITE BLOOD COUNT 11.1 10^3/uL (4.0-10.0)
[2019-06-15 11:53] LABS: ALBUMIN 3.8 GM/DL (3.2-5.2); BILIRUBIN,TOTAL 0.3 MG/DL (0.2-1.0); CALCIUM LEVEL 8.8 MG/DL (8.8-10.2); CREATININE FOR GFR 1.41 MG/DL (0.55-1.30); GLOMERULAR FILTRATION RATE 40.4 (>45); POTASSIUM SERUM 5.1 MEQ/L (3.5-5.1); TOTAL PROTEIN 7.2 GM/DL (6.4-8.2)
[2019-06-15 12:13] LABS: HEMOGLOBIN A1c 5.9 %
== END ==
LOC: M SFHCPLAZ 09:07
PROVIDERS: ATTEND Family Medicine
DX: R06.01 Orthopnea (principal); R10.84 Generalized abdominal pain; Z13.1 Encounter for screening for diabetes mellitus

== ENCOUNTER 2019-06-18 15:23 | Emergency (ER) | payer OTHER ==
[~2019-06-18] VITALS: Ht 160 cm; Wt 87.3 kg
[~2019-06-18 15:23] MED LIST changes: -GABA-845 PO
[2019-06-18] MEDS ORDERED: GABA-845 PO (15:52)
[2019-06-18 18:00] VITALS: BP 103/55
[2019-06-18 18:04] LABS: ALBUMIN 3.6 GM/DL (3.2-5.2); BILIRUBIN,TOTAL 0.3 MG/DL (0.2-1.0); CALCIUM LEVEL 8.2 MG/DL (8.8-10.2); CREATININE FOR GFR 1.26 MG/DL (0.55-1.30); POTASSIUM SERUM 4.3 MEQ/L (3.5-5.1); TOTAL PROTEIN 6.5 GM/DL (6.4-8.2)
[2019-06-18 18:41] LABS: BASO # 0.1 10^3/uL (0.0-0.2); BASO % 0.8 % (0.0-1.0); EOS # 0.3 10^3/uL (0.0-0.5); EOS % 3.2 % (0.0-3.0); HEMATOCRIT 43.2 % (36.0-47.0); HEMOGLOBIN 13.6 g/dl (12.0-15.5); LYMPH # 2.8 10^3/uL (1.5-5.0); MEAN CORPUSCULAR HEMOGLOBIN 29.6 pg (27.0-33.0); MEAN CORPUSCULAR HGB CONC 31.5 g/dl (32.0-36.5); MEAN CORPUSCULAR VOLUME 94.1 fl (80.0-96.0); MONO # 0.9 10^3/uL (0.0-0.8); MONO % 8.7 % (0.0-5.0); NEUTROPHILS # 6.4 10^3/uL (1.5-8.5); NEUTROPHILS % 60.7 % (36.0-66.0); PLATELET COUNT, AUTOMATED 182 10^3/uL (150-450); RED BLOOD COUNT 4.59 10^6/uL (4.00-5.40); WHITE BLOOD COUNT 10.6 10^3/uL (4.0-10.0)
[2019-06-18] MEDS ORDERED: PERCOCET 5MG/325MG TAB PO ONE (18:45)
== END 2019-06-18 19:20 | disposition home or self-care (01) ==
LOC: M ED 15:23 → EDBD 15:23 → M ED 19:20
DX: R31.29 Other microscopic hematuria (principal); I12.9 Hypertensive chronic kidney disease with stage 1 through stage 4 chronic kidney disease, or unspecified chronic kidney disease; J44.9 Chronic obstructive pulmonary disease, unspecified; N18.3 Chronic kidney disease, stage 3 (moderate); E03.9 Hypothyroidism, unspecified; F25.9 Schizoaffective disorder, unspecified; G47.33 Obstructive sleep apnea (adult) (pediatric); Z79.899 Other long term (current) drug therapy; Z79.890 Hormone replacement therapy; Z88.1 Allergy status to other antibiotic agents; Z88.5 Allergy status to narcotic agent; Z88.8 Allergy status to other drugs, medicaments and biological substances

== ENCOUNTER → 2019-06-29 | Outpatient (CLI) | payer OTHER ==
[~2019-06-29] MED LIST changes: +GABA-845 PO
--- NOTE | 2019-06-29 13:45 | REP ---
DIGITAL DIAGNOSTIC BILATERAL MAMMOGRAPHY WITH CAD, 3D TOMOGRAPHY, AND FOCUSED RIGHT BREAST SONOGRAPHY. HISTORY: Right breast palpable lump for the last 2 months. Tender mobile lump at 6-o'clock position right breast. Comparison mammography July 18, 2017, January 04, 2015, and December 30, 2014. MAMMOGRAPHIC FINDINGS: There is stable contour deformity of the right breast superiorly unchanged from comparison studies. A skin marker is affixed to the skin at the site of the palpable lump. Routine views of the right breast are augmented by magnified focal spot compression images. Scattered fibroglandular elements are noted bilaterally. There is no evidence of dominant density, mass, spiculation, or architectural distortion in either breast mammographically. No abnormality is noted at the site of the palpable lump on the right. SONOGRAPHIC FINDINGS: Scanning is performed in the region of the palpable lump at 6- o'clock position. Heterogeneous fibroglandular background echotexture is seen. No cyst, mass, acoustic shadowing or architectural distortion is seen. IMPRESSION: BIRADS 2: BI-RADS/ACR category 2 mammogram. Benign Findings. BIRADS category 2 benign findings. Clinical follow-up is advised. Repeat screening mammography recommended 1 year. This mammogram was interpreted with the aid of an FDA-approved computer-aided detection system. The patient states she had a clinical breast exam in June 2019 The patient letter being requested is M2. This patient's estimated Tyrer-Cuzick lifetime risk assessment for the breast cancer is 11.1 %.
== END ==
LOC: M WHC 09:27
PROVIDERS: ATTEND Family Medicine
DX: N63.10 Unspecified lump in the right breast, unspecified quadrant (principal)
CPT/HCPCS: 76642; 77066; G0279

== ENCOUNTER → 2019-06-29 | Outpatient (CLI) | payer OTHER ==
[2019-06-29 18:27] LABS: BASO # 0.1 10^3/uL (0.0-0.2); BASO % 0.8 % (0.0-1.0); EOS # 0.3 10^3/uL (0.0-0.5); EOS % 3.7 % (0.0-3.0); HEMATOCRIT 41.2 % (36.0-47.0); HEMOGLOBIN 13.2 g/dl (12.0-15.5); LYMPH # 2.6 10^3/uL (1.5-5.0); MEAN CORPUSCULAR VOLUME 93.6 fl (80.0-96.0); MONO # 0.9 10^3/uL (0.0-0.8); MONO % 9.6 % (0.0-5.0); NEUTROPHILS # 5.1 10^3/uL (1.5-8.5); NEUTROPHILS % 56.5 % (36.0-66.0); PLATELET COUNT, AUTOMATED 185 10^3/uL (150-450)
[2019-06-29 18:28] LABS: APPEARANCE, URINE CLEAR (CLEAR); BACTERIA, URINE AUTO NEGATIVE (NEGATIVE); BILIRUBIN, URINE AUTO NEGATIVE (NEGATIVE); BLOOD, URINE BLOOD NEGATIVE (NEGATIVE); COLOR, URINE YELLOW (YELLOW); GLUCOSE, URINE (UA) AUTO NEGATIVE (NEGATIVE); KETONE, URINE AUTO NEGATIVE (NEGATIVE); LEUKOCYTE ESTERASE, URINE AUTO NEGATIVE (NEGATIVE); NITRITE, URINE AUTO NEGATIVE (NEGATIVE); PROTEIN, URINE AUTO NEGATIVE (NEGATIVE); RBC, URINE AUTO 0 /HPF (0-3); SPECIFIC GRAVITY URINE AUTO 1.008 (1.002-1.035); SQUAMOUS EPITHELIAL CELL UR AU 1 /HPF (0-6); UROBILINOGEN, URINE AUTO 0.2 mg/dL (0.0-2.0); WBC, URINE AUTO 0 /HPF (0-3)
[2019-06-29 18:39] LABS: ALBUMIN 3.6 GM/DL (3.2-5.2); BILIRUBIN,TOTAL 0.4 MG/DL (0.2-1.0); CALCIUM LEVEL 8.6 MG/DL (8.8-10.2); CREATININE FOR GFR 1.41 MG/DL (0.55-1.30); FREE T4 0.96 NG/DL (0.76-1.46); GLOMERULAR FILTRATION RATE 40.4 (>45); POTASSIUM SERUM 4.7 MEQ/L (3.5-5.1); THYROID STIMULATING HORMONE 8.46 uIU/ML (0.358-3.740); TOTAL PROTEIN 6.9 GM/DL (6.4-8.2)
== END ==
LOC: M PLALAB 12:04
PROVIDERS: ATTEND Family Medicine
DX: R53.83 Other fatigue (principal); R53.1 Weakness; R31.0 Gross hematuria

== ENCOUNTER → 2019-07-02 | Outpatient (REF) | payer OTHER ==
[2019-07-02 12:48] LABS: AMORPHOUS SEDIMENT SMALL (NEGATIVE); APPEARANCE, URINE HAZY (CLEAR); BACTERIA, URINE AUTO 1+ (NEGATIVE); BILIRUBIN, URINE AUTO NEGATIVE (NEGATIVE); BLOOD, URINE BLOOD 1+ (NEGATIVE); COLOR, URINE AMBER (YELLOW); GLUCOSE, URINE (UA) AUTO NEGATIVE (NEGATIVE); GRANULAR CAST, URINE AUTO 1 /LPF; KETONE, URINE AUTO TRACE mg/dL (NEGATIVE); LEUKOCYTE ESTERASE, URINE AUTO 3+ (NEGATIVE); NITRITE, URINE AUTO NEGATIVE (NEGATIVE); PROTEIN, URINE AUTO NEGATIVE (NEGATIVE); RBC, URINE AUTO 28 /HPF (0-3); RENAL EPITHELIAL CELLS 1 /HPF; SPECIFIC GRAVITY URINE AUTO 1.019 (1.002-1.035); SQUAMOUS EPITHELIAL CELL UR AU 7 /HPF (0-6); TRANSITIONAL EPITHELIAL AUTO 1 /HPF; WBC, URINE AUTO 27 /HPF (0-3)
== END ==
LOC: M SFHCPLAZ 08:58
PROVIDERS: ATTEND Family Medicine
DX: R31.0 Gross hematuria (principal)

== ENCOUNTER → 2019-07-05 | Outpatient (CLI) | payer OTHER ==
[~2019-07-05] MED LIST changes: +GASTROGRAFIN SOLUTION 30ML (Q9963) As Ordered ONE; +ISOVUE-370 76% 100ML VIAL (Q9967) As Ordered ONE
--- NOTE | 2019-07-05 11:33 | REP ---
CT of the abdomen and pelvis with IV and oral contrast for generalized abdominal pain: Comparison is 08/30/2018. Within the visualized lung arriaga. There is discoid atelectasis in the right lower lobe. The hepatic parenchyma is diffusely hypodense compatible with hepato steatosis. There are no hepatic masses. There are surgical clips in the gallbladder fossa. The pancreas, spleen and adrenals are unremarkable. There is cortical atrophy and small cortical cysts in the right kidney, unchanged, possibly sequela of pyelonephritis. The left kidney is unremarkable. There is no hydronephrosis on the right on the left. No renal calculi are identified. The abdominal aorta is unremarkable. There is no periaortic adenopathy or mass. The previous descending colon/sigmoid colon colitis has resolved. There is no bowel distension or obstruction. The mesentery is unremarkable. There is no ascites. Pelvis: There is a hysterectomy. Vaginal cuff and adnexa are unremarkable. The bladder is unremarkable. There is no adenopathy or ascites. The pelvic bowel loops are unremarkable. Impression: Hepato steatosis, unchanged. There are no hepatic masses. There is no ascites. There is no bowel distension or obstruction. The previous colitis involving the descending colon and sigmoid colon has resolved. There is diffuse renal cortical atrophy and there are small cysts in the right kidney, likely sequela of pyelonephritis. This is unchanged. The left kidney is unremarkable. The the patient has a cholecystectomy and hysterectomy. Additionally, the patient has had Terry fundoplication of the gastroesophageal junction. Electronically Signed by Jamal Evans MD 07/05/2019 11:24 A
== END ==
LOC: M RAD 08:43
PROVIDERS: ATTEND Family Medicine
DX: J98.11 Atelectasis (principal); K76.0 Fatty (change of) liver, not elsewhere classified; Q61.02 Congenital multiple renal cysts; R10.84 Generalized abdominal pain; Z90.49 Acquired absence of other specified parts of digestive tract; Z90.710 Acquired absence of both cervix and uterus
CPT/HCPCS: 74177; Q9963; Q9967

== ENCOUNTER → 2019-07-15 | Outpatient (REF) | payer OTHER ==
[~2019-07-15] MED LIST changes: -GASTROGRAFIN SOLUTION 30ML (Q9963) As Ordered ONE; -ISOVUE-370 76% 100ML VIAL (Q9967) As Ordered ONE; +LEVO137T2 PO; +OXYC10TA3 PO
[2019-07-15 17:18] LABS: HEMATOCRIT 40.6 % (36.0-47.0); HEMOGLOBIN 13.1 g/dl (12.0-15.5); MEAN CORPUSCULAR HGB CONC 32.3 g/dl (32.0-36.5); MEAN CORPUSCULAR VOLUME 92.9 fl (80.0-96.0); PLATELET COUNT, AUTOMATED 202 10^3/uL (150-450); RED BLOOD COUNT 4.37 10^6/uL (4.00-5.40); WHITE BLOOD COUNT 7.7 10^3/uL (4.0-10.0)
[2019-07-15 17:37] LABS: CALCIUM LEVEL 8.4 MG/DL (8.8-10.2); CREATININE FOR GFR 1.24 MG/DL (0.55-1.30); GLOMERULAR FILTRATION RATE 46.8 (>45); POTASSIUM SERUM 4.7 MEQ/L (3.5-5.1)
== END ==
LOC: M LABSMT 14:12
PROVIDERS: ATTEND Urology
DX: Z01.818 Encounter for other preprocedural examination (principal); R31.0 Gross hematuria; N39.0 Urinary tract infection, site not specified

== ENCOUNTER → 2019-07-28 | Outpatient (CLI) | payer OTHER | LOC: M LAB 08:34 | PROVIDERS: ATTEND Urology | DX: Z01.818 Encounter for other preprocedural examination (principal); R31.0 Gross hematuria; N39.0 Urinary tract infection, site not specified ==

== ENCOUNTER 2019-08-06 07:46 | Day surgery (SDC) | payer OTHER ==
[~2019-08-06] VITALS: Ht 160 cm; Wt 86.2 kg
[~2019-08-06 07:46] MED LIST changes: +LIDOCAINE 1% MDV 20ML VIAL SQ PRN; +LR 1,000 ML IV ONE; +ceFAZolin SOD 2 GM in IV 1 EA IV ONE
[2019-08-06] MEDS ORDERED: OXYC15TA76 PO (10:50)
[2019-08-06] MEDS ORDERED: MIDAZOLAM INJ 2 MG/2 ML VIAL (J2250) As Ordered ONE (11:35)
[2019-08-06] MEDS ORDERED: LIDOCAINE 2% INJ 100 MG/5 ML SDV (FOR ANES.) As Ordered ONE (11:36)
[2019-08-06] MEDS ORDERED: fentaNYL 100 MCG/2 ML INJECTION (J3010) As Ordered ONE (11:36)
[2019-08-06] MEDS ORDERED: ONDANSETRON 4MG/2ML VIAL (J2405) As Ordered ONE (11:37)
[2019-08-06] MEDS ORDERED: propofoL 200 MG/20 ML VIAL As Ordered ONE (11:37)
[2019-08-06] MEDS ORDERED: CONRAY-60 60% 50ML VIAL (Q9961) As Ordered ONE (12:10)
[2019-08-06] MEDS ORDERED: dexameTHASONE 4 MG/ML 1ML VIAL (J1100) As Ordered ONE (12:12)
[2019-08-06] MEDS ORDERED: ePHEDrine SULFATE 25 MG/5 ML(5MG/ML) SYRINGE As Ordered ONE (12:40)
[2019-08-06] MEDS ORDERED: PHENYLephrine HCL 500 MCG/5 ML (100MCG/ML) SYRINGE (J2370) As Ordered ONE (12:47)
--- NOTE | 2019-08-06 13:28 | REP ---
Retrograde pyelogram: Three views. History: Gross hematuria. 27 seconds of fluoroscopy time is reported. Findings: A sequence of three last image hold fluoroscopically obtained spot radiographs of the abdomen document bilateral ureteral cannulation, contrast injection, and bilateral double pigtail ureteral stent placement. Electronically Signed by Franklyn King MD 08/06/2019 01:20 P
[2019-08-06] MEDS ORDERED: oxyBUTYnin 5 MG TAB PO PRN (13:45)
[2019-08-06] MEDS ORDERED: PERCOCET 5MG/325MG TAB PO PRN (13:45)
[2019-08-06] MEDS ORDERED: fentaNYL 100 MCG/2 ML INJECTION (J3010) IV PRN (13:45)
[2019-08-06] MEDS ORDERED: ONDANSETRON 4MG/2ML VIAL (J2405) IV PRN (13:45)
[2019-08-06 14:20] VITALS: BP 158/87
--- NOTE | 2019-08-06 23:17 | RO ---
DATE OF PROCEDURE: 08/06/2019 PREOPERATIVE DIAGNOSIS: Gross hematuria. POSTOPERATIVE DIAGNOSIS: Gross hematuria. OPERATIVE PROCEDURE: Cystoscopy, bilateral ureteroscopy, bilateral retrograde pyelogram with intraoperative interpretation of images, bilateral ureteral stent placement. SURGEON: Wellington Mendez MD CAR RUNNER: None ANESTHESIA: General. OPERATIVE INDICATIONS: This is a 63-year-old female who previously had undergone a full workup for gross hematuria who once again has recurrent gross hematuria. She was brought to the operating room to try to determine the source of her hematuria. DESCRIPTION OF OPERATION: The patient was brought to the operating room and general anesthesia induced. Prophylactic antibiotics were infused. She was then placed in the dorsal lithotomy position and prepped and draped in the usual sterile fashion. A rigid cystoscope was inserted into the urethral meatus and advanced into the bladder. Once inside the bladder, a guidewire was advanced up the right collecting system. I then advanced the ureteral access sheath up the right collecting system. I went up the access sheath with a flexible ureteroscope and examined the right kidney thoroughly. No lesions were seen inside any of the calyces. There were no stones seen. At this point, a right renal pelvis washing was obtained to be sent for cytology. I then shot a retrograde pyelogram and was notable for mild right hydronephrosis with no extravasation. I then withdrew the ureteroscope along with the access sheath and no abnormalities were seen within the ureter. I then utilized the wire to advance a #6-Djiboutian x 22-32 cm JJ ureteral stent up into the right collecting system. The wire was removed and there were adequate curls of the stent in the right renal pelvis and in the bladder. I then advanced the guidewire up the left collecting system. I advanced a ureteral access sheath up the wire. I then went up the access sheath with a flexible ureteroscope. I examined the left kidney thoroughly and no abnormalities were seen in any of the calices. No stones were seen. After I examined the calyces, I obtained a washing from the left renal pelvis and that was sent for cytology. After this, a retrograde pyelogram was performed notable for mild left hydronephrosis with no extravasation. I then withdrew the ureteroscope along with the access sheath and no lesions were seen within the ureter. I then utilized the wire to advance a #6-Djiboutian x 22-32 cm JJ ureteral stent up into the left collecting system. The wire was removed and there were adequate curls of the stent in the left renal pelvis and in the bladder. The bladder was then emptied of all fluids and this marked the conclusion of the procedure. The patient was taken out of the dorsal lithotomy position, awakened from anesthesia and transferred to the recovery room in stable condition. ESTIMATED BLOOD LOSS: 5 mL. COMPLICATIONS: None. SPECIMENS: Right and left renal pelvis washings for cytology. PLAN: The patient will followup in clinic in about a week or two for a postoperative visit to discuss cytology results. If they are both negative we will remove her stents and this will end her hematuria workup. If either one demonstrates urothelial carcinoma then we will discuss treatment options at that time. PHILLIP
== END 2019-08-06 14:50 | disposition home or self-care (01) ==
LOC: M SDC 07:46
PROVIDERS: ATTEND Urology
DX: R31.0 Gross hematuria (principal); I10 Essential (primary) hypertension; E03.9 Hypothyroidism, unspecified; K58.8 Other irritable bowel syndrome; F17.218 Nicotine dependence, cigarettes, with other nicotine-induced disorders; K21.9 Gastro-esophageal reflux disease without esophagitis; F41.9 Anxiety disorder, unspecified; J44.9 Chronic obstructive pulmonary disease, unspecified; Z88.1 Allergy status to other antibiotic agents; Z88.8 Allergy status to other drugs, medicaments and biological substances; G43.909 Migraine, unspecified, not intractable, without status migrainosus; G47.30 Sleep apnea, unspecified; Z79.899 Other long term (current) drug therapy
CPT/HCPCS: 52332; 74420; 88108; C1769; C1894; C2617; J1100; J2250; J2370; J2405; J3010; Q9961

== ENCOUNTER → 2019-10-25 | Outpatient (CLI) | payer OTHER ==
[~2019-10-25] MED LIST changes: +CYCL-707 PO; -CYCL10TA PO; -LIDOCAINE 1% MDV 20ML VIAL SQ PRN; -LR 1,000 ML IV ONE; +OXYC-1 PO; -ceFAZolin SOD 2 GM in IV 1 EA IV ONE
--- NOTE | 2019-10-25 16:58 | REPPI ---
REASON FOR EXAM: Foot swelling. No history of trauma. There is evidence of prior bunionectomy, however, I have been given no history, and a moderate hallux valgus deformity persists. There is no acute fracture. Degenerative changes are present throughout the foot. Electronically Signed by Edil Dela Cruz DO 10/26/2019 08:12 A
== END ==
LOC: M PLALAB 15:51 → M PLAIMG 15:51
PROVIDERS: ATTEND Family Medicine
DX: S99.921A Unspecified injury of right foot, initial encounter (principal); X58.XXXA Exposure to other specified factors, initial encounter; Y92.9 Unspecified place or not applicable; M19.071 Primary osteoarthritis, right ankle and foot; Q66.6 Other congenital valgus deformities of feet

== ENCOUNTER → 2019-10-28 | Outpatient (REF) | payer OTHER ==
[~2019-10-28] MED LIST changes: +LANS30CA93
[2019-10-28 11:58] LABS: CALCIUM LEVEL 8.4 MG/DL (8.8-10.2); CREATININE FOR GFR 1.11 MG/DL (0.55-1.30); FREE T4 1.3 NG/DL (0.76-1.46); POTASSIUM SERUM 4.3 MEQ/L (3.5-5.1); THYROID STIMULATING HORMONE 0.747 uIU/ML (0.358-3.740)
== END ==
LOC: M SFHCPLAZ 08:21
PROVIDERS: ATTEND Family Medicine
DX: E03.9 Hypothyroidism, unspecified (principal); Z13.1 Encounter for screening for diabetes mellitus; N18.3 Chronic kidney disease, stage 3 (moderate); I10 Essential (primary) hypertension

== ENCOUNTER 2019-11-08 17:35 | Emergency (ER) | payer OTHER ==
[~2019-11-08] VITALS: Ht 160 cm; Wt 90.0 kg
[~2019-11-08 17:35] MED LIST changes: -LANS30CA93
[2019-11-08] MEDS ORDERED: dexameTHASONE 20MG/5ML VIAL (J1100 PER 1MG) IV ONE (18:00)
--- NOTE | 2019-11-08 18:05 | REP ---
Clinical: Cough and dyspnea . Comparison: 06/15/2019 . Findings: The mediastinum and cardiac silhouette are stable and within normal limits for portable technique. The lung arriaga are clear without acute consolidation, effusion, or pneumothorax. Skeletal structures are intact. Impression: No acute cardiopulmonary process appreciated. Electronically Signed by Kuldeep Borjas MD 11/08/2019 05:56 P
[2019-11-08] MEDS: COMBIVENT RESPIMAT 100-20MCG INHALER 4GM INH SCH ×2 (18:16→18:36)
[2019-11-08] MEDS ORDERED: LANS30CA93 (18:19)
[2019-11-08 18:50] LABS: BASO # 0.1 10^3/uL (0.0-0.2); BASO % 0.7 % (0.0-1.0); EOS # 0.4 10^3/uL (0.0-0.5); EOS % 3.1 % (0.0-3.0); HEMATOCRIT 43.7 % (36.0-47.0); HEMOGLOBIN 13.7 g/dl (12.0-15.5); LYMPH # 3.6 10^3/uL (1.5-5.0); LYMPH % 30.1 % (24.0-44.0); MEAN CORPUSCULAR HEMOGLOBIN 29.5 pg (27.0-33.0); MEAN CORPUSCULAR HGB CONC 31.4 g/dl (32.0-36.5); MEAN CORPUSCULAR VOLUME 94.2 fl (80.0-96.0); MONO # 0.9 10^3/uL (0.0-0.8); MONO % 7.7 % (0.0-5.0); NEUTROPHILS # 6.8 10^3/uL (1.5-8.5); NEUTROPHILS % 56.7 % (36.0-66.0); PLATELET COUNT, AUTOMATED 211 10^3/uL (150-450); RED BLOOD COUNT 4.64 10^6/uL (4.00-5.40)
[2019-11-08 19:20] LABS: ALBUMIN 3.1 GM/DL (3.2-5.2); ALT/SGPT 47 U/L (12-78); BILIRUBIN,DIRECT < 0.1 MG/DL (0.0-0.2); BILIRUBIN,TOTAL 0.2 MG/DL (0.2-1.0); NT-PRO BNP 67 PG/ML (<125); THYROXINE (T4) 8.3 UG/DL (4.5-12.0); TOTAL PROTEIN 6.4 GM/DL (6.4-8.2)
[2019-11-08] MEDS ORDERED: PRED10TA2 PO (19:58)
[2019-11-08 20:05] VITALS: O2SAT 93
[2019-11-08 20:19] VITALS: BP 106/62
--- NOTE | 2019-11-09 16:19 | ECGEPIP ---
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
== END 2019-11-08 20:20 | disposition home or self-care (01) ==
LOC: EDBD 17:35 → M ED 17:35
DX: J44.1 Chronic obstructive pulmonary disease with (acute) exacerbation (principal); I10 Essential (primary) hypertension; N18.3 Chronic kidney disease, stage 3 (moderate); E03.9 Hypothyroidism, unspecified; K21.9 Gastro-esophageal reflux disease without esophagitis; K58.9 Irritable bowel syndrome, unspecified; G43.909 Migraine, unspecified, not intractable, without status migrainosus; G47.33 Obstructive sleep apnea (adult) (pediatric); Z79.899 Other long term (current) drug therapy; Z79.890 Hormone replacement therapy; Z88.1 Allergy status to other antibiotic agents; Z88.8 Allergy status to other drugs, medicaments and biological substances; F17.210 Nicotine dependence, cigarettes, uncomplicated
CPT/HCPCS: 71045; 80047; 80076; 81001; 83605; 83880; 84436; 84443; 85025; 87040; 87486; 87581; 87633; 87798; 93005; 93041; 94640; 94760; 96374; 99285; J1100

== ENCOUNTER → 2019-12-01 | Outpatient (CLI) | payer OTHER ==
[~2019-12-01] MED LIST changes: +ACET-861 PO; +B-12100010 PO; +GABA-1171 PO; +LANS30CA93 PO; +LEVO150T7 PO; +LISI-542 PO; +MULTTAB12 PO; +ONDA8TAB8 SL; +OXYC15TA66 PO; +PANT40TA29 PO; -PANT40TA3 PO; +PRED5TA PO; +PROAAER10 INH; +QUET1TAB7 PO; +QUET200T2 PO; +QVAR80AE8 IN; -VITA100T12 PO; +VITA1TAB35 PO; +VRAY1.5C PO
--- NOTE | 2019-12-01 12:16 | REP ---
CT CHEST WITHOUT CONTRAST: Low-dose screening exam. HISTORY: Cigarette dependence. Comparison screening CT study October 02, 2018. Comparison CT chest is also reviewed from July 29, 2018. There is a screening chest CT study from September 25, 2017 which is also reviewed. FINDINGS: There are scattered areas of linear fibrosis in the lingula, right middle lobe, and left lower lobe. The left lower lobe fibrotic changes are new when compared with the prior study. No evidence of pulmonary mass or nodule is seen. There is minimal mucoid material in the left mainstem bronchus and right posterior trachea. Study is otherwise unremarkable. IMPRESSION: Lung RADS category 1 findings. Repeat screening exam suggested 1 year. Electronically Signed by Franklyn King MD 12/01/2019 12:50 P
== END ==
LOC: M RAD 10:12
PROVIDERS: ATTEND Family Medicine
DX: R92.0 Mammographic microcalcification found on diagnostic imaging of breast (principal); R93.89 Abnormal findings on diagnostic imaging of other specified body structures

== ENCOUNTER → 2020-03-10 | Outpatient (CLI) | payer OTHER ==
--- NOTE | 2020-03-10 13:51 | REP ---
INDICATION: UNSP ATHSCL JES ART OF EXT WENDY LEGS MAIN REG COMPARISON: 02/25/2019. TECHNIQUE: Real time montero scale and Duplex Doppler evaluation of the bilateral lower extremity arterial vasculature using linear high frequency transducer. FINDINGS: Montero scale and duplex doppler images demonstrate minimal soft plaque in the bilateral lower extremity arterial systems. Diffuse triphasic waveforms are seen throughout the bilateral lower extremities. AGUSTIN bilaterally is 1.2. There is no evidence of hemodynamically significant stenosis of the bilateral lower extremity arterial systems. Peak systolic velocities (cm/sec) Common femoral artery: Right 155; Left 120 Profunda femoris: Right 105; Left 60 SFA (proximal): Right 140; Left 103 SFA (mid): Right 93; Left 92 SFA (distal): Right 86; Left 72 Popliteal artery: Right 67; Left 75 ROSALIE (prox.): Right 77; Left 77 Tibioperoneal trunk: Right 68; Left 50 RISK CONSULTING TREASURY DIRECTOR (prox.): Right 71; Left 66 RISK CONSULTING TREASURY DIRECTOR (distal): Right 83; Left 54 ROSALIE (distal): Right 64; Left 43 IMPRESSION: Atheromatous changes with areas of minimal narrowing but no obvious focal occlusion or stenosis. <Electronically signed by Jamal Montero > 03/10/20 [id number]
== END ==
LOC: M RAD 12:12
PROVIDERS: ATTEND Surgery Vascular Surgery
DX: I70.203 Unspecified atherosclerosis of native arteries of extremities, bilateral legs (principal); Z87.891 Personal history of nicotine dependence

== ENCOUNTER → 2020-03-22 | Outpatient (CLI) | payer OTHER | LOC: M LABSMTC 11:29 | PROVIDERS: ATTEND Anesthesiology | DX: Z01.812 Encounter for preprocedural laboratory examination (principal); Z20.828 Contact with and (suspected) exposure to other viral communicable diseases ==

== ENCOUNTER 2020-03-27 11:39 | Day surgery (SDC) | payer OTHER ==
[~2020-03-27] VITALS: Ht 160 cm; Wt 93.0 kg
[~2020-03-27 11:39] MED LIST changes: +KETOROLAC 60MG 2ML VIAL As Ordered ONE; +LIDOCAINE 2% 100MG/5ML SDV (FOR ANES.) As Ordered ONE; +MIDAZOLAM INJ 2MG/2ML VIAL (J2250 PER 1MG) As Ordered ONE; +NS 1,000 ML IV ONE; +ONDANSETRON 4MG/2ML VIAL As Ordered ONE; +ROCURONIUM BROMIDE 50 MG/5 ML VIAL As Ordered ONE; +SUGAMMADEX SODIUM 500 MG/5 ML VIAL (BRIDION) As Ordered ONE; +dexameTHASONE 4 MG/ML 1ML VIAL (J1100 PER 1MG) As Ordered ONE; +fentaNYL 100 MCG/2 ML INJECTION (J3010) As Ordered ONE; +propofoL 200 MG/20 ML VIAL As Ordered ONE
[2020-03-27] MEDS ORDERED: ePHEDrine SULFATE 25 MG/5 ML(5MG/ML) SYRINGE As Ordered ONE (11:45)
[2020-03-27] MEDS ORDERED: propofoL 200 MG/20 ML VIAL As Ordered ONE ×2 (12:10→13:17)
[2020-03-27] MEDS ORDERED: DESFLURANE 240 ML INHALANT As Ordered ONE (12:16)
[2020-03-27] MEDS ORDERED: ROCURONIUM BROMIDE 50 MG/5 ML VIAL As Ordered ONE (12:31)
--- NOTE | 2020-03-27 13:13 | ROOR ---
Patient Name: Gabbi Guzman Procedure Date: 03/27/2020 12:49 PM Date of : 1955 Age: 64 Room: [facility] Gender: Female Note Status: Finalized Procedure: Upper Endoscopy + Biopsies + balloon dilatation Indications: Dysphagia, Heartburn, Exclusion of Altamirano's esophagus Providers: Simon Ye MD Referring MD: Debo Howe MD Requesting Provider: Medicines: Monitored Anesthesia Care Complications: No immediate complications. Procedure: Pre-Anesthesia Assessment: - The heart rate, respiratory rate, oxygen saturations, blood pressure, adequacy of pulmonary ventilation, and response to care were monitored throughout the procedure. The Endoscope was introduced through the mouth, and advanced to the second part of duodenum. The upper GI endoscopy was accomplished without difficulty. The patient tolerated the procedure well. Findings: The Z-line was variable and was found 40 cm from the incisors. Multiple biopsies were obtained with cold forceps for evaluation to rule out Altamirano's Esophagus randomly at the gastroesophageal junction. A TTS dilator was passed through the scope. Dilation with a 15-16.5-18 mm balloon dilator was performed to 18 mm. A small hiatal hernia was present. No other significant abnormalities were identified in a careful examination of the stomach. The exam of the duodenum was otherwise normal. The exam was otherwise without abnormality. Impression: - Z-line variable, 40 cm from the incisors. Dilated. - Small hiatal hernia. - The examination was otherwise normal. - Multiple biopsies were obtained at the gastroesophageal junction. - The examination was otherwise normal. Recommendation: - Patient has a contact number available for emergencies. The signs and symptoms of potential delayed complications were discussed with the patient. Return to normal activities tomorrow. Written discharge instructions were provided to the patient. - High fiber diet. - Discharge patient to home. - Follow an antireflux regimen. - Continue present medications. - Return to referring physician. - Await pathology results. - Telephone GI clinic for pathology results in 1 week. - The findings and recommendations were discussed with the patient. Simon Ye MD Simon Ye MD 03/27/2020 1:13:11 PM Electronically signed by Simon Ye MD Number of Addenda: 0 Note Initiated On: 03/27/2020 12:49 PM Estimated Blood Loss: Estimated blood loss: none.
[2020-03-27] MEDS ORDERED: LIDOCAINE 2% 100MG/5ML SDV (FOR ANES.) As Ordered ONE (13:17)
[2020-03-27 13:36] VITALS: BP 170/99
[2020-03-27] MEDS ORDERED: LR 1,000 ML IV SCH (14:15)
[2020-03-27] MEDS ORDERED: oxyCODONE 5MG TAB PO PRN (14:15)
[2020-03-27] MEDS ORDERED: ONDANSETRON 4MG/2ML VIAL IV PRN (14:15)
[2020-03-27] MEDS ORDERED: fentaNYL 100 MCG/2 ML INJECTION (J3010) IV PRN (14:15)
[2020-03-27] MEDS ORDERED: METOCLOPRAMIDE INJ 10MG/2ML VIAL (J2765 PER 1) IV PRN (14:15)
[2020-03-27] MEDS ORDERED: HYDROMORPHONE HCL 0.5 MG/ 0.5 ML SYRINGE (J1170 PER 1) IV PRN (14:15)
== END 2020-03-27 13:39 | disposition home or self-care (01) ==
LOC: M OPP 11:39
PROVIDERS: ATTEND Internal Medicine Gastroenterology
DX: K22.8 Other specified diseases of esophagus (principal); K44.9 Diaphragmatic hernia without obstruction or gangrene; R13.10 Dysphagia, unspecified; R12 Heartburn; F17.210 Nicotine dependence, cigarettes, uncomplicated; Z79.891 Long term (current) use of opiate analgesic; Z79.899 Other long term (current) drug therapy; Z88.1 Allergy status to other antibiotic agents; Z88.5 Allergy status to narcotic agent; Z88.8 Allergy status to other drugs, medicaments and biological substances
CPT/HCPCS: 43239; 43249; 88305; J1100; J1885; J2250; J2405; J3010

== ENCOUNTER 2020-04-14 14:24 | Emergency (ER) | payer OTHER ==
[~2020-04-14] VITALS: Ht 160 cm; Wt 94.0 kg
[~2020-04-14 14:24] MED LIST changes: -KETOROLAC 60MG 2ML VIAL As Ordered ONE; -LIDOCAINE 2% 100MG/5ML SDV (FOR ANES.) As Ordered ONE; -MIDAZOLAM INJ 2MG/2ML VIAL (J2250 PER 1MG) As Ordered ONE; +MIRT-60 PO; +NICO1DIS12 TD; +NICO1DIS12 TOP; -NICO21DI31 TD; -NICO21DI31 TOP; -NS 1,000 ML IV ONE; -ONDANSETRON 4MG/2ML VIAL As Ordered ONE; -REME30TA PO; -ROCURONIUM BROMIDE 50 MG/5 ML VIAL As Ordered ONE; -SUGAMMADEX SODIUM 500 MG/5 ML VIAL (BRIDION) As Ordered ONE; -dexameTHASONE 4 MG/ML 1ML VIAL (J1100 PER 1MG) As Ordered ONE; -fentaNYL 100 MCG/2 ML INJECTION (J3010) As Ordered ONE; -propofoL 200 MG/20 ML VIAL As Ordered ONE
[2020-04-14 15:23] LABS: BASO # 0.1 10^3/uL (0.0-0.2); BASO % 1.3 % (0.0-1.0); EOS # 0.3 10^3/uL (0.0-0.5); EOS % 4.1 % (0.0-3.0); HEMATOCRIT 45.3 % (36.0-47.0); HEMOGLOBIN 14.3 g/dl (12.0-15.5); LYMPH % 25.4 % (24.0-44.0); MEAN CORPUSCULAR HEMOGLOBIN 28.8 pg (27.0-33.0); MEAN CORPUSCULAR HGB CONC 31.6 g/dl (32.0-36.5); MEAN CORPUSCULAR VOLUME 91.3 fl (80.0-96.0); MONO # 0.8 10^3/uL (0.0-0.8); MONO % 9.9 % (0.0-5.0); NEUTROPHILS # 4.6 10^3/uL (1.5-8.5); NEUTROPHILS % 58.9 % (36.0-66.0); PLATELET COUNT, AUTOMATED 192 10^3/uL (150-450); RED BLOOD COUNT 4.96 10^6/uL (4.00-5.40); WHITE BLOOD COUNT 7.8 10^3/uL (4.0-10.0)
--- NOTE | 2020-04-14 15:25 | REP ---
INDICATION: CHEST PAIN. COMPARISON: Comparison radiograph November 08, 2019.. TECHNIQUE: Sitting AP portable radiograph. FINDINGS: Monitoring electrodes are seen. Heart is not enlarged. There is minimal linear scarring in the right base. No infiltrate is seen. Pleural angles are sharp. The aorta is somewhat tortuous. Pulmonary vasculature is not increased. No acute bony abnormality is seen. The distal left clavicle has been resected. IMPRESSION: Minimal linear fibrosis right base. Otherwise no acute disease. <Electronically signed by Alan King > 04/14/20 [id number]
[2020-04-14] MEDS ORDERED: GI COCKTAIL 50ML BTL(HYOSCYAMINE/MAALOX/LIDOCAINE VISCOUS)(1:3:1) PO ONE (15:30)
[2020-04-14] MEDS ORDERED: dexameTHASONE 20MG/5ML VIAL (J1100 PER 1MG) IV ONE (15:30)
[2020-04-14] MEDS: COMBIVENT RESPIMAT 100-20MCG INHALER 4GM INH SCH ×2 (15:32→15:44)
[2020-04-14 15:46] LABS: ALBUMIN 3.6 GM/DL (3.2-5.2); ALT/SGPT 42 U/L (12-78); BILIRUBIN,DIRECT < 0.1 MG/DL (0.0-0.2); BILIRUBIN,TOTAL 0.3 MG/DL (0.2-1.0); BLOOD UREA NITROGEN 11 MG/DL (7-18); CALCIUM LEVEL 8.5 MG/DL (8.8-10.2); CARBON DIOXIDE LEVEL 28 MEQ/L (21-32); CHLORIDE LEVEL 107 MEQ/L (98-107); CREATININE FOR GFR 1.19 MG/DL (0.55-1.30); GLOMERULAR FILTRATION RATE 48.9 (>45); GLUCOSE, FASTING 100 MG/DL (70-100); LIPASE 96 U/L (73-393); NT-PRO BNP 97 PG/ML (<125); POTASSIUM SERUM 4.3 MEQ/L (3.5-5.1); SODIUM LEVEL 140 MEQ/L (136-145); TOTAL PROTEIN 6.9 GM/DL (6.4-8.2)
[2020-04-14] MEDS ORDERED: ISOVUE-370 76% 100ML VIAL As Ordered ONE (15:58)
--- NOTE | 2020-04-14 16:28 | REP ---
INDICATION: abd pain. COMPARISON: 07/05/2019 TECHNIQUE: 100 cc Isovue 370. FINDINGS: There is an unchanged intensely enhancing nodule in the posterior segment of the right lobe of the liver stable from not only the aforementioned prior but from multiple other older priors as well. There are no new enhancing hepatic abnormalities. The spleen, pancreas, adrenal glands, and kidneys are unchanged. There are chronic right renal changes status quo. There are multiple right renal cyst status quo. The abdominal aorta and para-aortic regions are within normal limits. There is no free fluid or free air. There is no mass or adenopathy. The bowel loops and the mesenteries are unremarkable. There is no significant change in appearance of the osseous structures. IMPRESSION: No evidence of acute disease or significant change when compared to prior exams. Findings as described above. <Electronically signed by Edil Dela Cruz > 04/14/20 [id number]
--- NOTE | 2020-04-14 16:32 | REP ---
INDICATION: chest pain/sob. COMPARISON: Low-dose screening CT examination of the lungs of 12/01/2019 and 10/02/2018 along with standard noncontrast enhanced chest CT of 07/29/2018. TECHNIQUE: CT angio chest after the administration of 100 cc Isovue 370. FINDINGS: There is excellent visualization of the pulmonary arterial vasculature. No focal filling defects are present that would be considered consistent with acute pulmonary emboli. There are no pleural or pericardial effusions. There is no hilar or mediastinal mass or adenopathy. The imaged osseous structures are within normal limits. Evaluation of the lung arriaga shows bilateral dependent subsegmental atelectatic changes. No abnormal nodules or masses have developed since the latest prior chest CT. There is mild irregular pleural thickening in the lung apical regions posteriorly status quo. IMPRESSION: 1. No evidence of an acute pulmonary embolus. 2. No evidence of acute lung disease. <Electronically signed by Edil Dela Cruz > 04/14/20 [id number]
[2020-04-14] MEDS ORDERED: oxyCODONE 5MG TAB PO ONE (18:15)
[2020-04-14] MEDS ORDERED: PRED10TA2 PO (19:29)
[2020-04-14 19:31] VITALS: BP 159/78
--- NOTE | 2020-04-15 06:47 | ECGEPIP ---
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
== END 2020-04-14 19:35 | disposition home or self-care (01) ==
LOC: M ED 14:24
DX: J44.1 Chronic obstructive pulmonary disease with (acute) exacerbation (principal); I12.9 Hypertensive chronic kidney disease with stage 1 through stage 4 chronic kidney disease, or unspecified chronic kidney disease; N18.30 Chronic kidney disease, stage 3 unspecified; G47.30 Sleep apnea, unspecified; E03.9 Hypothyroidism, unspecified; G43.909 Migraine, unspecified, not intractable, without status migrainosus; K21.9 Gastro-esophageal reflux disease without esophagitis; F25.9 Schizoaffective disorder, unspecified; K58.9 Irritable bowel syndrome, unspecified; Z79.899 Other long term (current) drug therapy; Z79.890 Hormone replacement therapy; Z88.1 Allergy status to other antibiotic agents; Z88.8 Allergy status to other drugs, medicaments and biological substances; F17.210 Nicotine dependence, cigarettes, uncomplicated
CPT/HCPCS: 71045; 71275; 74177; 80048; 80076; 83690; 83880; 85025; 93005; 93041; 94760; 96374; 99285; J1100; Q9967

== ENCOUNTER 2020-05-13 14:07 | Emergency (ER) | payer OTHER ==
[~2020-05-13] VITALS: Ht 160 cm; Wt 95.0 kg
[2020-05-13] MEDS ORDERED: NS 1,000 ML IV SCH (14:23)
[2020-05-13] MEDS ORDERED: QVAR80AE8 INH (14:29)
[2020-05-13] MEDS ORDERED: PRED1TABL PO (14:29)
[2020-05-13] MEDS ORDERED: CYCL-707 PO (14:29)
[2020-05-13] MEDS ORDERED: LISI10TA4 PO (14:29)
[2020-05-13] MEDS ORDERED: MIRT1TAB17 PO (14:29)
[2020-05-13] MEDS ORDERED: COMBAER6 INH (14:29)
[2020-05-13] MEDS ORDERED: PANTOPRAZOLE 40MG VIAL (C9113 PER 1) IV ONE (14:30)
[2020-05-13] MEDS ORDERED: ONDANSETRON 4MG/2ML VIAL IV ONE (14:30)
--- NOTE | 2020-05-13 14:51 | REP ---
INDICATION: pelvic pain COMPARISON: 04/14/2020 TECHNIQUE: Axial noncontrast images from the lung bases to the pubic symphysis with coronal and sagittal reformations. This CT examination was performed using the following dose reduction techniques: Automated exposure control, adjustment of mA and/or kv according to the patient's size, and use of iterative reconstruction technique. FINDINGS: Lung bases are clear. Visualized heart and pericardium normal. Liver demonstrates hepatomegaly and diffuse fatty infiltration. Spleen, pancreas, bilateral adrenal glands and left kidney are normal. Right kidney demonstrates stable atrophic changes, cortical scar and rounded hypodensities suggesting cysts. The enteric system demonstrates moderate to significant diffuse colonic fecal stasis and presumed constipation. No bowel obstruction. Scattered sigmoid diverticula noted without acute diverticulitis. Pelvis demonstrates normal bladder and evidence for prior hysterectomy. No ascites. No free air. No adenopathy. No focal inflammatory stranding. Abdominal aorta without aneurysm. Musculoskeletal structures are intact and without acute osseous abnormality. IMPRESSION: 1. Moderate to significant fecal stasis and presumed constipation should be correlated with physical examination. 2. Hepatomegaly and hepatosteatosis. 3. No acute abdominopelvic pathology otherwise appreciated. Chronic stable changes. <Electronically signed by Kuldeep Borjas > 05/13/20 [id number]
[2020-05-13 15:25] LABS: BASO # 0.1 10^3/uL (0.0-0.2); BASO % 0.6 % (0.0-1.0); EOS # 0.3 10^3/uL (0.0-0.5); EOS % 3.1 % (0.0-3.0); HEMATOCRIT 43.4 % (36.0-47.0); HEMOGLOBIN 13.1 g/dl (12.0-15.5); LYMPH # 2.1 10^3/uL (1.5-5.0); LYMPH % 19.3 % (24.0-44.0); MEAN CORPUSCULAR HEMOGLOBIN 28.4 pg (27.0-33.0); MEAN CORPUSCULAR HGB CONC 30.2 g/dl (32.0-36.5); MEAN CORPUSCULAR VOLUME 93.9 fl (80.0-96.0); MONO % 9.8 % (0.0-5.0); NEUTROPHILS # 7.1 10^3/uL (1.5-8.5); NEUTROPHILS % 66.7 % (36.0-66.0); PLATELET COUNT, AUTOMATED 206 10^3/uL (150-450); RED BLOOD COUNT 4.62 10^6/uL (4.00-5.40); WHITE BLOOD COUNT 10.6 10^3/uL (4.0-10.0)
[2020-05-13 15:48] LABS: ALBUMIN 3.3 GM/DL (3.2-5.2); ALT/SGPT 31 U/L (12-78); BILIRUBIN,DIRECT < 0.1 MG/DL (0.0-0.2); BILIRUBIN,TOTAL 0.3 MG/DL (0.2-1.0); BLOOD UREA NITROGEN 11 MG/DL (7-18); CALCIUM LEVEL 8.6 MG/DL (8.8-10.2); CARBON DIOXIDE LEVEL 29 MEQ/L (21-32); CHLORIDE LEVEL 103 MEQ/L (98-107); CREATININE FOR GFR 1.07 MG/DL (0.55-1.30); GLOMERULAR FILTRATION RATE 55.3 (>45); GLUCOSE, FASTING 78 MG/DL (70-100); LIPASE 77 U/L (73-393); POTASSIUM SERUM 4.2 MEQ/L (3.5-5.1); SODIUM LEVEL 139 MEQ/L (136-145); TOTAL PROTEIN 6.9 GM/DL (6.4-8.2)
[2020-05-13 16:15] VITALS: BP 135/63
[2020-05-13] MEDS ORDERED: MAGNESIUM CITRATE 300 ML BTL PO ONE (16:15)
== END 2020-05-13 16:25 | disposition home or self-care (01) ==
LOC: EDBD 14:07 → M ED 14:07
DX: K59.00 Constipation, unspecified (principal); E11.9 Type 2 diabetes mellitus without complications; I12.9 Hypertensive chronic kidney disease with stage 1 through stage 4 chronic kidney disease, or unspecified chronic kidney disease; N18.9 Chronic kidney disease, unspecified; J44.9 Chronic obstructive pulmonary disease, unspecified; E78.5 Hyperlipidemia, unspecified; E07.9 Disorder of thyroid, unspecified; Z99.89 Dependence on other enabling machines and devices; Z79.899 Other long term (current) drug therapy; Z79.890 Hormone replacement therapy; Z88.8 Allergy status to other drugs, medicaments and biological substances
CPT/HCPCS: 74176; 80048; 80076; 81001; 83690; 85025; 87086; 93041; 96361; 96374; 96375; 99285; C9113; J2405

== ENCOUNTER 2020-05-20 14:19 | Emergency (ER) | payer OTHER ==
[~2020-05-20] VITALS: Ht 160 cm; Wt 95.5 kg
[~2020-05-20 14:19] MED LIST changes: +MIRT1TAB17 PO; +PRED1TABL PO; +QVAR80AE8 INH
[2020-05-20] MEDS ORDERED: PANTOPRAZOLE 40MG VIAL (C9113 PER 1) IV ONE (16:15)
[2020-05-20] MEDS ORDERED: ONDANSETRON 4MG/2ML VIAL IV ONE ×2 (16:15→23:45)
[2020-05-20] MEDS ORDERED: KETOROLAC 30 MG/ML 1ML VIAL IV ONE (16:15)
[2020-05-20 18:08] LABS: BASO # 0.1 10^3/uL (0.0-0.2); BASO % 0.8 % (0.0-1.0); EOS # 0.3 10^3/uL (0.0-0.5); EOS % 2.9 % (0.0-3.0); HEMATOCRIT 43.7 % (36.0-47.0); HEMOGLOBIN 13.2 g/dl (12.0-15.5); LYMPH # 2.2 10^3/uL (1.5-5.0); LYMPH % 19.6 % (24.0-44.0); MEAN CORPUSCULAR HEMOGLOBIN 28.3 pg (27.0-33.0); MEAN CORPUSCULAR HGB CONC 30.2 g/dl (32.0-36.5); MEAN CORPUSCULAR VOLUME 93.8 fl (80.0-96.0); MONO % 9.1 % (0.0-5.0); NEUTROPHILS # 7.5 10^3/uL (1.5-8.5); NEUTROPHILS % 66.9 % (36.0-66.0); PLATELET COUNT, AUTOMATED 254 10^3/uL (150-450); RED BLOOD COUNT 4.66 10^6/uL (4.00-5.40); WHITE BLOOD COUNT 11.2 10^3/uL (4.0-10.0)
[2020-05-20 18:45] LABS: ERYTHROCYTE SEDIMENTATION RATE 31 mm/hr (0-30)
[2020-05-20 18:47] LABS: ALT/SGPT 25 U/L (12-78); BILIRUBIN,DIRECT < 0.1 MG/DL (0.0-0.2); BILIRUBIN,TOTAL 0.2 MG/DL (0.2-1.0); CK-MB VALUE MASS 1.1 NG/ML (<3.6); CPK CREATINE PHOSPHOKINASE 53 U/L (26-192); LIPASE 124 U/L (73-393); MB/CK RELATIVE INDEX 2.08 (< OR =4); TOTAL PROTEIN 6.3 GM/DL (6.4-8.2); TROPONIN I < 0.02 NG/ML (< 0.10)
--- NOTE | 2020-05-20 19:26 | ECGEPIP ---
[facility] - ED Test Date: 2020-05-20 Pat Name: MAGALY CORTEZ Department: Room: - Gender: Female Spreader Operator: : 1955 Requested By: LEILANI Garcia PA-C Order Number: [id number] Reading MD: Jessica Arzola Measurements Intervals [place] Rate: 77 P: -9 [place]: 124 QRS: 25 QRSD: 88 T: 20 QT: 373 QTc: 423 Interpretive Statements SINUS RHYTHM NONSPECIFIC ST T WAVE CHANGES CW04/14/[address] T WAVE CHANGES DIFFICULT TO COMPARE- ALOT OF BASELINE WANDERING AND ARTIFACT IN 04/14/20 ECG Electronically Signed on 05-20-2020 19:26:10 EST by Jessica Arzola
[2020-05-20] MEDS ORDERED: ISOVUE-370 76% 100ML VIAL As Ordered ONE (19:34)
--- NOTE | 2020-05-20 20:07 | REPVR ---
PROCEDURE INFORMATION: Exam: CT Abdomen And Pelvis With Contrast Exam date and time: 05/20/2020 7:39 PM Age: 64 years old Clinical indication: Abdominal pain; Generalized; Additional info: Abdominal pain / bloated TECHNIQUE: Imaging protocol: Computed tomography of the abdomen and pelvis with intravenous contrast. Radiation optimization: All CT scans at this facility use at least one of these dose optimization techniques: automated exposure control; mA and/or kV adjustment per patient size (includes targeted exams where dose is matched to clinical indication); or iterative reconstruction. Contrast material: ISOVUE 370; Contrast volume: 100 ml; Contrast route: INTRAVENOUS (IV); COMPARISON: CT ABD PELVIS W/O CONTRAST 05/13/2020 2:29 PM FINDINGS: Lungs: Bibasilar atelectasis. Liver: There is a diffuse decrease in hepatic parenchymal density, consistent with steatosis. Gallbladder and bile ducts: There has been a cholecystectomy. Pancreas: There is mild diffuse pancreatic atrophy. Spleen: Normal. No splenomegaly. Adrenal glands: Normal. No mass. Kidneys and ureters: Multiple simple cyst right kidney measure up to 1.7 cm in the lower pole. No follow-up suggested. Stomach and bowel: There is increased feces throughout a dilated colon consistent with chronic constipation. Diffuse wall thickening involving the left, sigmoid and to a lesser degree the rectum suggest presence of stercoral colitis. Appendix: No evidence of appendicitis. Intraperitoneal space: Unremarkable. No free air. No significant fluid collection. Vasculature: The aortoiliac vessels demonstrate mild atherosclerotic calcification. Lymph nodes: Unremarkable. No enlarged lymph nodes. Urinary bladder: Unremarkable as visualized. Reproductive: There has been a hysterectomy. Bones/joints: Moderate central spinal stenosis L3-L4 and L4-L5. Soft tissues: Unremarkable. IMPRESSION: 1. There has been a hysterectomy. 2. There is a diffuse decrease in hepatic parenchymal density, consistent with steatosis. 3. There has been a cholecystectomy. 4. There is mild diffuse pancreatic atrophy. 5. There is increased feces throughout a dilated colon consistent with chronic constipation. Diffuse wall thickening involving the left, sigmoid and to a lesser degree the rectum suggest presence of stercoral colitis. COMMENTS: Consistent with the [employer]'s Incidental Findings Committee white paper (J Am Song Radiol 2018): Any incidental renal lesion less than 1 cm or classified as too small to characterize, or any incidental cystic renal lesion characterized as simple-appearing, is likely benign. No follow-up imaging is recommended for these lesions per consensus recommendations based on imaging criteria. Electronically signed by: Osbaldo Corbin On 05/20/2020 20:07:36 PM
[2020-05-20] MEDS ORDERED: FLEET OIL RETENTION ENEMA PR ONE (20:30)
[2020-05-20] MEDS ORDERED: MAGNESIUM CITRATE 300 ML BTL PO ONE (20:30)
[2020-05-20] MEDS ORDERED: NS 500 ML IV ONE (20:45)
[2020-05-20] MEDS ORDERED: COMBIVENT RESPIMAT 100-20MCG INHALER 4GM INH SCH (21:00)
[2020-05-21] MEDS ORDERED: BACT800T5 PO (00:42)
[2020-05-21 00:55] VITALS: BP 118/57
== END 2020-05-21 01:10 | disposition home or self-care (01) ==
LOC: M ED 14:19
DX: K59.00 Constipation, unspecified (principal); N30.00 Acute cystitis without hematuria; R11.2 Nausea with vomiting, unspecified; I10 Essential (primary) hypertension; Z87.442 Personal history of urinary calculi; K21.9 Gastro-esophageal reflux disease without esophagitis; K57.92 Diverticulitis of intestine, part unspecified, without perforation or abscess without bleeding; K44.9 Diaphragmatic hernia without obstruction or gangrene; Z87.19 Personal history of other diseases of the digestive system; Z85.05 Personal history of malignant neoplasm of liver; F17.200 Nicotine dependence, unspecified, uncomplicated; Z79.899 Other long term (current) drug therapy; Z88.8 Allergy status to other drugs, medicaments and biological substances; Z88.6 Allergy status to analgesic agent; Z88.1 Allergy status to other antibiotic agents; Z88.5 Allergy status to narcotic agent
CPT/HCPCS: 74177; 80047; 80076; 81001; 82550; 82553; 83605; 83690; 85025; 85652; 86140; 87086; 93005; 96361; 96374; 96375; 96376; 99284; C9113; J1885; J2405; Q9967

== ENCOUNTER → 2020-06-02 | Outpatient (REF) | payer OTHER ==
[~2020-06-02] MED LIST changes: +BACT800T5 PO; -LISI-542 PO; +LISI-898 PO; +LISI10TA22 PO; -LISI10TA4 PO; -QUET1TAB7 PO; +QUET25TA3 PO
[2020-06-02 13:17] LABS: BASO % 0.5 % (0.0-1.0); EOS # 0.2 10^3/uL (0.0-0.5); EOS % 2.5 % (0.0-3.0); HEMATOCRIT 42.4 % (36.0-47.0); HEMOGLOBIN 13.5 g/dl (12.0-15.5); LYMPH # 1.9 10^3/uL (1.5-5.0); LYMPH % 21.2 % (24.0-44.0); MEAN CORPUSCULAR HGB CONC 31.8 g/dl (32.0-36.5); MONO # 0.7 10^3/uL (0.0-0.8); MONO % 7.4 % (0.0-5.0); NEUTROPHILS % 68.1 % (36.0-66.0); PLATELET COUNT, AUTOMATED 225 10^3/uL (150-450); RED BLOOD COUNT 4.66 10^6/uL (4.00-5.40); WHITE BLOOD COUNT 8.8 10^3/uL (4.0-10.0)
[2020-06-02 13:29] LABS: APPEARANCE, URINE CLEAR (CLEAR); BACTERIA, URINE AUTO NEGATIVE (NEGATIVE); BILIRUBIN, URINE AUTO NEGATIVE (NEGATIVE); BLOOD, URINE BLOOD 1+ (NEGATIVE); COLOR, URINE STRAW (YELLOW); GLUCOSE, URINE (UA) AUTO NEGATIVE (NEGATIVE); KETONE, URINE AUTO NEGATIVE (NEGATIVE); LEUKOCYTE ESTERASE, URINE AUTO NEGATIVE (NEGATIVE); NITRITE, URINE AUTO NEGATIVE (NEGATIVE); PROTEIN, URINE AUTO NEGATIVE (NEGATIVE); RBC, URINE AUTO 1 /HPF (0-3); SPECIFIC GRAVITY URINE AUTO 1.002 (1.002-1.035); SQUAMOUS EPITHELIAL CELL UR AU 1 /HPF (0-6); UROBILINOGEN, URINE AUTO 0.2 mg/dL (0.0-2.0); WBC, URINE AUTO 1 /HPF (0-3)
[2020-06-02 13:54] LABS: ALBUMIN 3.4 GM/DL (3.2-5.2); ALT/SGPT 37 U/L (12-78); BILIRUBIN,TOTAL 0.5 MG/DL (0.2-1.0); BLOOD UREA NITROGEN 11 MG/DL (7-18); CALCIUM LEVEL 8.6 MG/DL (8.8-10.2); CARBON DIOXIDE LEVEL 27 MEQ/L (21-32); CHLORIDE LEVEL 106 MEQ/L (98-107); CREATININE FOR GFR 0.98 MG/DL (0.55-1.30); GLOMERULAR FILTRATION RATE > 60.0 (>45); GLUCOSE, FASTING 84 MG/DL (70-100); LIPASE 137 U/L (73-393); POTASSIUM SERUM 4.3 MEQ/L (3.5-5.1); SODIUM LEVEL 140 MEQ/L (136-145); TOTAL PROTEIN 6.8 GM/DL (6.4-8.2)
[2020-06-02 15:31] LABS: HEMOGLOBIN A1c 5.9 %
== END ==
LOC: M SFHCPLAZ 10:27
PROVIDERS: ATTEND Family Medicine
DX: R10.2 Pelvic and perineal pain (principal)

== ENCOUNTER → 2020-06-09 | Outpatient (REF) | payer OTHER ==
[~2020-06-09] MED LIST changes: +LISI-542 PO; -LISI-898 PO; -LISI10TA22 PO; +LISI10TA4 PO; +QUET1TAB7 PO; -QUET25TA3 PO
== END ==
LOC: M SFHCPLAZ 13:35
PROVIDERS: ATTEND Family Medicine
DX: J06.9 Acute upper respiratory infection, unspecified (principal)

== ENCOUNTER → 2020-07-13 | Outpatient (CLI) | payer OTHER ==
[~2020-07-13] MED LIST changes: -LISI-542 PO; +LISI-898 PO; +LISI10TA22 PO; -LISI10TA4 PO; -QUET1TAB7 PO; +QUET25TA3 PO
--- NOTE | 2020-07-13 09:29 | REPMRS ---
Patient History The patient states she has not had a clinical breast exam in over a year. Family history of breast cancer at age 45 in sister. Benign stereotactic core biopsy of the left breast. No Hormone Replacement Therapy 3D TOMOSYNTHESIS WAS PERFORMED. [facility] lifetime risk for breast cancer is 10.7%. Volpara breast density b. Digital Woman Screen Mammo: July 13, 2020 - Exam #: [id number] Bilateral CC and MLO view(s) were taken. Technologist: Gisella Sagastume, Technologist Prior study comparison: June 29, 2019, diagnostic bilateral mammo performed at [facility]. July 18, 2017, digital woman screen mammo performed at [facility]. FINDINGS: The breast tissue is heterogeneously dense. This may lower the sensitivity of mammography. There has been no change in the appearance of the mammogram from the prior studies. There is a moderate amount of residual fibroglandular tissue which is fairly symmetric. There is no interval development of dominant mass, areas of architectural distortion, or clustered microcalcification typical of malignancy. Assessment: BI-RADS/ACR category 1 mammogram. Negative Mammogram. Recommendation Routine screening mammogram in 1 year (for women over age 40). This mammogram was interpreted with the aid of an FDA-approved computer-aided dectection system. Electronically Signed By: Jamal Montero MD 07/13/20 0928
== END ==
LOC: M WHC 08:21
PROVIDERS: ATTEND Family Medicine
DX: Z12.31 Encounter for screening mammogram for malignant neoplasm of breast (principal); Z80.3 Family history of malignant neoplasm of breast; Z86.018 Personal history of other benign neoplasm

== ENCOUNTER → 2020-08-12 | Outpatient (CLI) | payer OTHER ==
--- NOTE | 2020-08-14 13:56 | SLEEPCENT ---
NOCTURNAL POLYSOMNOGRAPHY DATE: 08/12/2020 ORDERED BY: CALLIE Ybarra Nocturnal polysomnography was performed for evaluation of sleep physiology in this patient with a history of excessive somnolence and nonrestorative sleep. 7 hours and 34 minutes of data were reviewed. There were 364.5 minutes of sleep identified. Sleep latency was mildly prolonged at 17.5 minutes. REM latency was mildly prolonged as well at 156.5 minutes. Sleep architecture was fair with two REM cycles noted. Overall sleep efficiency was good at 81%. The electrocardiogram showed a sinus rhythm with an average heart rate of 80 beats per minute. EEG showed coarsening in background. No focal events were identified and there were normal waveforms for wake and sleep. There were 47 respiratory events identified of 10 seconds in duration or greater for an apnea-hypopnea index of 8. The events were obstructive, not exclusive to sleep stage, and more frequent, but not exclusive to the supine posture. Arousals from respiratory events occurred 4.6 times per hour and oxygen desaturations were seen below 90%. There was some activity in the limb leads, but arousals were few and snoring was noted over the entire study. IMPRESSION: Obstructive sleep apnea syndrome (G47.33), apnea-hypopnea index 8.1. RECOMMENDATION: The patient should be encouraged to return to [facility]. In the interim, alcohol and sedative avoidance should be practiced and caution exercised during the operation of motor vehicles.
== END ==
LOC: M SLEEP 20:00
PROVIDERS: ATTEND Nurse Practitioner Family
DX: G47.33 Obstructive sleep apnea (adult) (pediatric) (principal)

== ENCOUNTER 2020-08-27 19:22 | Inpatient (IN) | payer OTHER ==
[~2020-08-27] VITALS: Ht 160 cm; Wt 96.2 kg
[2020-08-27] MEDS ORDERED: METOCLOPRAMIDE INJ 10MG/2ML VIAL (J2765 PER 1) IV ONE (20:10)
[2020-08-27 20:49] LABS: HEMATOCRIT 46.3 % (36.0-47.0); HEMOGLOBIN 14.3 g/dl (12.0-15.5); MEAN CORPUSCULAR HEMOGLOBIN 27.3 pg (27.0-33.0); MEAN CORPUSCULAR HGB CONC 30.9 g/dl (32.0-36.5); MEAN CORPUSCULAR VOLUME 88.5 fl (80.0-96.0); NEUTROPHILS % 82.3 % (36.0-66.0); RED BLOOD COUNT 5.23 10^6/uL (4.00-5.40); WHITE BLOOD COUNT 15.5 10^3/uL (4.0-10.0)
[2020-08-27 20:50] LABS: BASO # 0.1 10^3/uL (0.0-0.2); BASO % 0.6 % (0.0-1.0); EOS # 0.2 10^3/uL (0.0-0.5); EOS % 1.2 % (0.0-3.0); LYMPH # 1.4 10^3/uL (1.5-5.0); LYMPH % 9.2 % (24.0-44.0); MONO % 6.4 % (2.0-8.0); NEUTROPHILS # 12.8 10^3/uL (1.5-8.5)
[2020-08-27] MEDS: MORPHINE 4 MG/ML 1ML VIAL/SYRINGE (J2270) IV PRN ×2 (20:57→23:53)
[2020-08-27] MEDS: MIRTAZAPINE 15 MG TAB PO SCH (21:00)
[2020-08-27 21:16] LABS: ALBUMIN 3.9 GM/DL (3.2-5.2); BILIRUBIN,DIRECT 0.2 MG/DL (0.0-0.2); BILIRUBIN,TOTAL 0.3 MG/DL (0.2-1.0); CREATININE FOR GFR 1.15 MG/DL (0.55-1.30); GLOMERULAR FILTRATION RATE 50.9 (>45); POTASSIUM SERUM 3.8 MEQ/L (3.5-5.1)
[2020-08-27] MEDS ORDERED: ISOVUE-370 76% 100ML VIAL As Ordered ONE (21:33)
--- NOTE | 2020-08-27 23:24 | REPVR ---
PROCEDURE INFORMATION: Exam: CT Abdomen And Pelvis With Contrast Exam date and time: 08/27/2020 10:45 PM Age: 64 years old Clinical indication: Abdominal pain; Additional info: Epigastric pain TECHNIQUE: Imaging protocol: Computed tomography of the abdomen and pelvis with contrast. Radiation optimization: All CT scans at this facility use at least one of these dose optimization techniques: automated exposure control; mA and/or kV adjustment per patient size (includes targeted exams where dose is matched to clinical indication); or iterative reconstruction. Contrast material: ISOVUE 370; Contrast volume: 100 ml; Contrast route: INTRAVENOUS (IV); COMPARISON: CT ABD/PEL W/IV CONTRAST ONLY 05/20/2020 7:27 PM FINDINGS: Mild atelectatic changes at the posterior lung bases. Lung bases are otherwise clear. No pleural or pericardial effusion. Liver is diffusely decreased in attenuation suggestive of fatty infiltration. No focal hepatic abnormalities. Gallbladder is surgically absent. The spleen, pancreas and adrenals are grossly normal. Kidneys demonstrate symmetric enhancement. There is asymmetric atrophy of the right kidney. Appearance is similar to previous examination. No evidence of ureterolithiasis or obstructive uropathy. Atherosclerotic changes identified within the abdominal aorta and aortic branch vessels with no evidence of aneurysmal dilatation. There is significant gaseous distension of the stomach. There is abnormal dilation of the duodenum which measures up to 4.5 cm. Dilated loops of small bowel in the anterior and left abdomen measure up to 4 cm in diameter. Distal small bowel loops in the right lower quadrant and colon are relatively decompressed. Findings are consistent with small bowel obstruction. No definite evidence of ventral or inguinal hernia. Pelvic organs are grossly normal. Uterus appears surgically absent. No free fluid in the abdomen or pelvis. Visualized osseous structures are grossly normal for age. IMPRESSION: Findings as described above consistent with small bowel obstruction. Follow-up with surgical consult is recommended. Fatty infiltration of the liver. No other acute intra-abdominal or pelvic process. Additional nonemergent findings as described above. Findings were discussed with ISIDRO GROVER at 08/27/2020 11:24 PM EDT Electronically signed by: Bong Figueroa On 08/27/2020 23:24:59 PM
[2020-08-27] MEDS ORDERED: MIRT-60 PO (23:47)
[2020-08-28] MEDS ORDERED: SENN-50 PO (01:01)
[2020-08-28] MEDS ORDERED: FLUTISP (01:01)
[2020-08-28] MEDS ORDERED: POLY510P14 PO (01:01)
[2020-08-28] MEDS ORDERED: FURO20TA2 PO (01:01)
[2020-08-28] MEDS ORDERED: FLUT1INH3 INH (01:01)
[2020-08-28] MEDS ORDERED: DICL1GEL3 TOP ×2 (01:01)
[2020-08-28] MEDS ORDERED: BIOF4GEL2 TOP (01:03)
[2020-08-28] MEDS ORDERED: SERO1TAB3 PO (01:04)
[2020-08-28] MEDS ORDERED: ALBUTEROL 90 MCG/ACT 8GM HFA INHALER INH PRN (01:20)
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
[2020-08-28] MEDS ORDERED: MORPHINE 2 MG/ML 1ML VIAL (J2270) IV ONE (01:55)
[2020-08-28] MEDS: LR 1,000 ML IV SCH ×3 (02:58→20:36)
[2020-08-28 03:00] VITALS: BP 164/82
[2020-08-28] MEDS: LEVOTHYROXINE 150MCG TABLET (0.15MG) PO SCH (05:47)
[2020-08-28] MEDS: ONDANSETRON 4MG/2ML VIAL IV PRN ×3 (05:47→20:35)
[2020-08-28] MEDS: oxyCODONE 5MG TAB PO PRN ×3 (05:48→17:58)
[2020-08-28 06:00] VITALS: BP 166/82
[2020-08-28 07:00] LABS: HEMATOCRIT 47.9 % (36.0-47.0); MEAN CORPUSCULAR HEMOGLOBIN 27.5 pg (27.0-33.0); MEAN CORPUSCULAR HGB CONC 31.3 g/dl (32.0-36.5); MEAN CORPUSCULAR VOLUME 87.7 fl (80.0-96.0); PLATELET COUNT, AUTOMATED 226 10^3/uL (150-450); RED BLOOD COUNT 5.46 10^6/uL (4.00-5.40); WHITE BLOOD COUNT 15.1 10^3/uL (4.0-10.0)
[2020-08-28 07:18] LABS: CALCIUM LEVEL 9.4 MG/DL (8.8-10.2); CREATININE FOR GFR 1.07 MG/DL (0.55-1.30); GLOMERULAR FILTRATION RATE 55.3 (>45); POTASSIUM SERUM 4.3 MEQ/L (3.5-5.1)
[2020-08-28] MEDS: ADVAIR HFA 230/21MCG INHALER INH SCH ×2 (07:39→23:18)
[2020-08-28] MEDS: OMEPRAZOLE 20 MG CAP PO SCH (08:24)
[2020-08-28] MEDS: FLUTICASONE PROP 0.05% NASAL SPRAY 16 GM (FLONASE) SCH (08:24)
[2020-08-28] MEDS: FUROSEMIDE 20 MG TAB PO SCH (08:24)
[2020-08-28] MEDS: oxyCODONE 15 MG CR TAB PO SCH ×2 (08:25→20:36)
[2020-08-28] MEDS ORDERED: ONDANSETRON 4 MG ORAL DISINTEGRATING TAB SL SCH (09:00)
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
--- NOTE | 2020-08-28 09:29 | ECGEPIP ---
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
[2020-08-28] MEDS ORDERED: **hydrALAZINE HCL** 25 MG TAB PO PRN (10:00)
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
[2020-08-28 14:00] VITALS: BP 162/82
[2020-08-28] MEDS: clonazePAM 1 MG TAB PO PRN (15:11)
[2020-08-28] MEDS: MIRTAZAPINE 15 MG TAB PO SCH (20:35)
[2020-08-28 20:46] LABS: HEMOGLOBIN A1c 5.7 %
[2020-08-28 22:16] VITALS: BP 164/86
[2020-08-29] MEDS: ONDANSETRON 4MG/2ML VIAL IV PRN ×4 (00:59→20:12)
[2020-08-29] MEDS: oxyCODONE 5MG TAB PO PRN ×4 (02:40→17:43)
[2020-08-29] MEDS: LEVOTHYROXINE 150MCG TABLET (0.15MG) PO SCH (05:56)
[2020-08-29] MEDS: LR 1,000 ML IV SCH ×3 (05:56→20:13)
[2020-08-29 06:07] VITALS: BP 147/82
[2020-08-29 06:50] LABS: HEMATOCRIT 42.1 % (36.0-47.0); HEMOGLOBIN 13.4 g/dl (12.0-15.5); MEAN CORPUSCULAR HGB CONC 31.8 g/dl (32.0-36.5); MEAN CORPUSCULAR VOLUME 88.1 fl (80.0-96.0); PLATELET COUNT, AUTOMATED 174 10^3/uL (150-450); RED BLOOD COUNT 4.78 10^6/uL (4.00-5.40); WHITE BLOOD COUNT 12.6 10^3/uL (4.0-10.0)
[2020-08-29 07:19] LABS: BLOOD UREA NITROGEN 11 MG/DL (7-18); CALCIUM LEVEL 8.3 MG/DL (8.8-10.2); CARBON DIOXIDE LEVEL 28 MEQ/L (21-32); CHLORIDE LEVEL 105 MEQ/L (98-107); CREATININE FOR GFR 0.86 MG/DL (0.55-1.30); GLOMERULAR FILTRATION RATE > 60.0 (>45); GLUCOSE, FASTING 102 MG/DL (70-100); POTASSIUM SERUM 3.5 MEQ/L (3.5-5.1); SODIUM LEVEL 139 MEQ/L (136-145)
[2020-08-29] MEDS: ADVAIR HFA 230/21MCG INHALER INH SCH ×2 (07:25→21:26)
[2020-08-29] MEDS: FUROSEMIDE 20 MG TAB PO SCH (08:19)
[2020-08-29] MEDS: FLUTICASONE PROP 0.05% NASAL SPRAY 16 GM (FLONASE) SCH (08:19)
[2020-08-29] MEDS: oxyCODONE 15 MG CR TAB PO SCH ×2 (08:19→20:14)
[2020-08-29] MEDS: OMEPRAZOLE 20 MG CAP PO SCH (08:19)
--- NOTE | 2020-08-29 08:38 | IPNPDOC ---
Text Note Date of Service The patient was seen on 08/29/20. NOTE General Surgery Dr Gregory. The patient is a 64-year-old female admitted with small bowel obstruction. The patient reports persistent diffuse abdominal pain and bloating. No nausea or vomiting. One small bowel movement yesterday. Afebrile, VSS. Resting in bed, no acute distress NG tube appears to be currently inserted to 35 cm. Abdomen is generally distended but is soft, generalized tenderness with palpation, no guarding or rebound No edema I/O 1959/1924 NG tube output 350ml Bowel movement times one recorded this a.m. WBC 12.6, hemoglobin 13.4, platelets 174 SBO. Patient with previous history of SBO and multiple prior abdominal surgeries. The patient remains generally distended. The patient is reviewed and examined as per Dr. Gregory this morning. NG tube plan to reinsert/reposition NG tube to 60cm, PCXR after NG tube is repositioned. Continue LIS. Nothing by mouth except sips/ice chips. Encourage out of bed Encourage ambulation Continue to monitor VS,Fishbone, I+O VS, Fishbone, I+O Laboratory Tests 08/29/20 06:33 Vital Signs Date Time Temp Pulse Resp B/P (MAP) Pulse Ox O2 Delivery O2 Flow Rate FiO2 08/29/20 06:07 98.3 62 17 147/82 (103) 94 Room Air I&O- Last 24 Hours up to 6 AM 08/29/20 06:00 Intake Total 1960 ml Output Total 1450 ml Balance 510 ml Jen Pacheco Aug 29, 2020 08:38
--- NOTE | 2020-08-29 08:54 | REP ---
INDICATION: for NG placement. COMPARISON: None. TECHNIQUE: Portable go to priors multiple the latest 04/14/2020 also portable FINDINGS: The technique utilized in obtaining the radiograph has magnified the cardiac silhouette and accentuated the interstitial markings. The cardiomediastinal silhouette is unchanged. Patchy basilar opacities have developed in the left lower lobe partially silhouetting out the diaphragmatic surface of the left lung. A nasogastric tube is seen coursing the esophagus the tip of which is beyond the confines of the radiograph. The distal most portion of the tube is in the left upper quadrant presumably within the stomach. There is no significant change in the osseous structures. IMPRESSION: 1. Nasogastric tube as described above. 2. Patchy left basilar opacities atelectasis versus pneumonia. <Electronically signed by Edil Dela Cruz > 08/29/20 [id number]
[2020-08-29] MEDS: DICLOFENAC EPOLAMINE 1.3 % PATCH TOP SCH ×2 (13:39→20:13)
[2020-08-29] MEDS: clonazePAM 1 MG TAB PO PRN (13:43)
[2020-08-29 14:00] VITALS: BP 147/81
[2020-08-29] MEDS ORDERED: BIOFREEZE (PATIENT'S OWN MED) TOP SCH (16:00)
[2020-08-29] MEDS: MIRTAZAPINE 15 MG TAB PO SCH (20:13)
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
[2020-08-29 22:00] VITALS: BP 147/81
[2020-08-30] MEDS: QUEtiapine FUMARATE 25 MG TAB PO PRN (00:59)
[2020-08-30] MEDS: oxyCODONE 5MG TAB PO PRN ×4 (04:15→17:58)
[2020-08-30] MEDS: LR 1,000 ML IV SCH ×3 (04:15→20:37)
[2020-08-30] MEDS: ONDANSETRON 4MG/2ML VIAL IV PRN ×4 (04:15→19:58)
[2020-08-30 06:00] VITALS: BP 120/53
[2020-08-30] MEDS: LEVOTHYROXINE 150MCG TABLET (0.15MG) PO SCH (06:55)
[2020-08-30 07:01] LABS: HEMATOCRIT 43.3 % (36.0-47.0); HEMOGLOBIN 13.7 g/dl (12.0-15.5); MEAN CORPUSCULAR HEMOGLOBIN 27.8 pg (27.0-33.0); MEAN CORPUSCULAR HGB CONC 31.6 g/dl (32.0-36.5); MEAN CORPUSCULAR VOLUME 87.8 fl (80.0-96.0); PLATELET COUNT, AUTOMATED 156 10^3/uL (150-450); RED BLOOD COUNT 4.93 10^6/uL (4.00-5.40); WHITE BLOOD COUNT 11.5 10^3/uL (4.0-10.0)
[2020-08-30] MEDS: ADVAIR HFA 230/21MCG INHALER INH SCH ×2 (07:23→21:30)
[2020-08-30 07:32] LABS: BLOOD UREA NITROGEN 10 MG/DL (7-18); CALCIUM LEVEL 8.6 MG/DL (8.8-10.2); CARBON DIOXIDE LEVEL 29 MEQ/L (21-32); CHLORIDE LEVEL 105 MEQ/L (98-107); CREATININE FOR GFR 0.79 MG/DL (0.55-1.30); GLOMERULAR FILTRATION RATE > 60.0 (>45); GLUCOSE, FASTING 85 MG/DL (70-100); POTASSIUM SERUM 3.4 MEQ/L (3.5-5.1); SODIUM LEVEL 141 MEQ/L (136-145)
--- NOTE | 2020-08-30 08:03 | IPNPDOC ---
Text Note Date of Service The patient was seen on 08/30/20. NOTE Pt was seen and examined this am. No new changes. The NG is out again this am and there is no improvement in her distention. No nausea or vomiting. No BM, but she did have a little more flatus yesterday. Afebrile, VSS. NAD Abdomen - distended but is soft and nontender, no guarding or rebound labs - below A) 64y/o female with partial vs. complete SBO. P) Encourage out of bed Encourage ambulation repalce NGT check acute abd series If there is a lot of stool on the xrays then I will try laxatives because she is normally laxative dependent at home due to chronic narcotic usage. if there is no improvement with the NG in for 24 hours without falling out, then we will plan on the OR tomorrow. Osvaldo Gregory DO VS,[place], I+O VS, Fishbone, I+O Laboratory Tests 08/30/20 06:48 08/30/20 06:49 Vital Signs Date Time Temp Pulse Resp B/P (MAP) Pulse Ox O2 Delivery O2 Flow Rate FiO2 08/30/20 06:00 97.7 75 20 120/53 (75) 88 Room Air I&O- Last 24 Hours up to 6 AM 08/30/20 06:00 Intake Total 2930 ml Output Total 1550 ml Balance 1380 ml FARHANA GREGORY DO Aug 30, 2020 08:03
[2020-08-30] MEDS: FLUTICASONE PROP 0.05% NASAL SPRAY 16 GM (FLONASE) SCH (08:18)
[2020-08-30] MEDS: BISACODYL 10 MG SUPP PR SCH ×2 (08:18→20:37)
[2020-08-30] MEDS: FUROSEMIDE 20 MG TAB PO SCH (08:19)
[2020-08-30] MEDS: oxyCODONE 15 MG CR TAB PO SCH ×2 (08:19→20:36)
[2020-08-30] MEDS: DICLOFENAC EPOLAMINE 1.3 % PATCH TOP SCH ×2 (08:19→20:37)
[2020-08-30] MEDS: OMEPRAZOLE 20 MG CAP PO SCH (08:19)
[2020-08-30] MEDS: clonazePAM 1 MG TAB PO PRN ×2 (08:28→20:36)
--- NOTE | 2020-08-30 09:08 | REP ---
INDICATION: abd distention. COMPARISON: Portable chest radiograph of 08/29/2020 and abdominal series of 08/30/2018 TECHNIQUE: Two views of the abdomen, one view of the chest. FINDINGS: The frontal view of the chest again shows patchy opacities in the left lower lobe which have increased with further a silhouetting out of the diaphragmatic surface of the left lung. The tip of the nasogastric tube is seen in the gastric antral region. The intestinal gas pattern is nonspecific. There is no evidence of free intraperitoneal air. The imaged osseous structures are within normal limits for the patient's age. IMPRESSION: Increasing left lung base opacities as described above. Consider PA and lateral views of the chest. Increasing atelectasis versus pneumonia. Nasogastric tube as described above. Other findings as described above. <Electronically signed by Edil Dela Cruz > 08/30/20 0917
[2020-08-30 09:24] LABS: MAGNESIUM LEVEL 2.1 MG/DL (1.8-2.4)
[2020-08-30] MEDS ORDERED: POTASSIUM CHLORIDE 10 MEQ SR TABLET PO ONE (09:30)
[2020-08-30] MEDS: ACETAMINOPHEN TAB 650MG DOSE (2X325MG) PO PRN ×2 (09:43→15:59)
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
[2020-08-30] MEDS ORDERED: MAGNESIUM CITRATE 300 ML BTL NG ONE (13:00)
[2020-08-30 14:00] VITALS: BP 145/74
[2020-08-30] MEDS: MIRTAZAPINE 15 MG TAB PO SCH (20:36)
[2020-08-30 22:00] VITALS: BP 154/88
[2020-08-31] MEDS ORDERED: GLUCAGON INJ 1MG VIAL SC PRN (00:30)
[2020-08-31] MEDS ORDERED: DEXTROSE 50% 50 ML SYRINGE IV PRN (00:30)
[2020-08-31] MEDS: GLUCOSE 4GM CHEW TABLET PO PRN ×2 (00:46→06:53)
[2020-08-31] MEDS: ONDANSETRON 4MG/2ML VIAL IV PRN ×3 (00:46→16:33)
[2020-08-31] MEDS: ACETAMINOPHEN TAB 650MG DOSE (2X325MG) PO PRN ×2 (01:00→16:35)
[2020-08-31 06:00] VITALS: BP 155/87
[2020-08-31] MEDS: oxyCODONE 5MG TAB PO PRN ×4 (06:10→19:23)
[2020-08-31] MEDS: LEVOTHYROXINE 150MCG TABLET (0.15MG) PO SCH (06:10)
[2020-08-31] MEDS: LR 1,000 ML IV SCH ×2 (06:11→15:11)
[2020-08-31] MEDS: ADVAIR HFA 230/21MCG INHALER INH SCH ×2 (07:57→19:46)
[2020-08-31 08:01] LABS: HEMATOCRIT 38.8 % (36.0-47.0); HEMOGLOBIN 12.3 g/dl (12.0-15.5); MEAN CORPUSCULAR HEMOGLOBIN 27.8 pg (27.0-33.0); MEAN CORPUSCULAR HGB CONC 31.7 g/dl (32.0-36.5); MEAN CORPUSCULAR VOLUME 87.6 fl (80.0-96.0); PLATELET COUNT, AUTOMATED 165 10^3/uL (150-450); RED BLOOD COUNT 4.43 10^6/uL (4.00-5.40)
--- NOTE | 2020-08-31 08:22 | IPNPDOC ---
Text Note Date of Service The patient was seen on 08/31/20. NOTE Pt was seen and examined this am. Abd xray yesterday did not show any bowel d istention, and she has had multiple BMs. She has tolerated the NG clamped since yesterday with just minor nausea, but that is her baseline. Afebrile, VSS. NAD Abdomen - distended but is soft and nontender, no guarding or rebound labs - below A) 64y/o female with partial vs. complete SBO resolved chronic constipation P) Encourage out of bed Encourage ambulation dc NGT clear liquid diet laxatives d/c home in am with laxatives and liquid diet if she tolerated it the next 24 hours. Osvaldo Gregory DO VS,[place], I+O VS, Fishbone, I+O Laboratory Tests 08/31/20 07:36 Vital Signs Date Time Temp Pulse Resp B/P (MAP) Pulse Ox O2 Delivery O2 Flow Rate FiO2 08/31/20 06:40 18 Room Air 08/31/20 06:00 98.4 73 155/87 (109) 94 I&O- Last 24 Hours up to 6 AM 08/31/20 06:00 Intake Total 1840 ml Output Total 480 ml Balance 1360 ml FARHANA GREGORY DO Aug 31, 2020 08:22
[2020-08-31 08:23] LABS: BLOOD UREA NITROGEN 10 MG/DL (7-18); CALCIUM LEVEL 7.8 MG/DL (8.8-10.2); CARBON DIOXIDE LEVEL 26 MEQ/L (21-32); CHLORIDE LEVEL 105 MEQ/L (98-107); GLOMERULAR FILTRATION RATE > 60.0 (>45); GLUCOSE, FASTING 81 MG/DL (70-100); POTASSIUM SERUM 3.6 MEQ/L (3.5-5.1); SODIUM LEVEL 139 MEQ/L (136-145)
[2020-08-31] MEDS: oxyCODONE 15 MG CR TAB PO SCH ×2 (08:51→21:02)
[2020-08-31] MEDS: clonazePAM 1 MG TAB PO PRN ×2 (08:51→21:02)
[2020-08-31 08:52] VITALS: BP 142/82
[2020-08-31] MEDS: OMEPRAZOLE 20 MG CAP PO SCH (10:30)
[2020-08-31] MEDS: FUROSEMIDE 20 MG TAB PO SCH (10:30)
[2020-08-31] MEDS: DICLOFENAC EPOLAMINE 1.3 % PATCH TOP SCH ×2 (10:31→21:02)
[2020-08-31] MEDS: MIRALAX *UNIT DOSE* 17GM PACKET PO SCH ×2 (10:31→21:03)
[2020-08-31] MEDS: BISACODYL 10 MG SUPP PR SCH ×2 (10:31→21:03)
[2020-08-31] MEDS: FLUTICASONE PROP 0.05% NASAL SPRAY 16 GM (FLONASE) SCH (10:44)
[2020-08-31 14:00] VITALS: BP 146/84
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
[2020-08-31 20:49] VITALS: BP 119/70
[2020-08-31] MEDS: MIRTAZAPINE 15 MG TAB PO SCH (21:03)
[2020-08-31] MEDS: QUEtiapine FUMARATE 25 MG TAB PO PRN (21:03)
[2020-09-01 05:17] VITALS: BP 121/68
[2020-09-01] MEDS: LEVOTHYROXINE 150MCG TABLET (0.15MG) PO SCH (05:45)
[2020-09-01] MEDS: oxyCODONE 5MG TAB PO PRN ×2 (05:46→09:46)
[2020-09-01 07:42] LABS: HEMATOCRIT 37.9 % (36.0-47.0); HEMOGLOBIN 11.8 g/dl (12.0-15.5); MEAN CORPUSCULAR HEMOGLOBIN 27.7 pg (27.0-33.0); MEAN CORPUSCULAR HGB CONC 31.1 g/dl (32.0-36.5); PLATELET COUNT, AUTOMATED 170 10^3/uL (150-450); RED BLOOD COUNT 4.26 10^6/uL (4.00-5.40); WHITE BLOOD COUNT 8.2 10^3/uL (4.0-10.0)
[2020-09-01 08:04] LABS: BLOOD UREA NITROGEN 6 MG/DL (7-18); CALCIUM LEVEL 8.2 MG/DL (8.8-10.2); CARBON DIOXIDE LEVEL 29 MEQ/L (21-32); CHLORIDE LEVEL 106 MEQ/L (98-107); CREATININE FOR GFR 0.82 MG/DL (0.55-1.30); GLOMERULAR FILTRATION RATE > 60.0 (>45); GLUCOSE, FASTING 112 MG/DL (70-100); POTASSIUM SERUM 3.7 MEQ/L (3.5-5.1); SODIUM LEVEL 140 MEQ/L (136-145)
[2020-09-01] MEDS: clonazePAM 1 MG TAB PO PRN (08:08)
[2020-09-01] MEDS: OMEPRAZOLE 20 MG CAP PO SCH (08:09)
[2020-09-01] MEDS: oxyCODONE 15 MG CR TAB PO SCH (08:10)
[2020-09-01] MEDS: FUROSEMIDE 20 MG TAB PO SCH (08:11)
[2020-09-01] MEDS: MIRALAX *UNIT DOSE* 17GM PACKET PO SCH (08:11)
[2020-09-01] MEDS: BISACODYL 10 MG SUPP PR SCH (08:12)
[2020-09-01] MEDS: DICLOFENAC EPOLAMINE 1.3 % PATCH TOP SCH (08:12)
[2020-09-01] MEDS: FLUTICASONE PROP 0.05% NASAL SPRAY 16 GM (FLONASE) SCH (08:12)
[2020-09-01] MEDS: ADVAIR HFA 230/21MCG INHALER INH SCH (08:20)
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
== END 2020-09-01 13:00 | disposition home or self-care (01) | DRG 247 ==
LOC: M ED 19:22 → M ED INP 08-28 01:18 → ENRESERV 08-28 01:53 → M MS5PR 08-28 02:37
PROVIDERS: ADMIT Internal Medicine; ATTEND Internal Medicine
DX: K56.609 Unspecified intestinal obstruction, unspecified as to partial versus complete obstruction (principal); F25.9 Schizoaffective disorder, unspecified; N18.30 Chronic kidney disease, stage 3 unspecified; K76.0 Fatty (change of) liver, not elsewhere classified; I12.9 Hypertensive chronic kidney disease with stage 1 through stage 4 chronic kidney disease, or unspecified chronic kidney disease; E78.5 Hyperlipidemia, unspecified; K21.9 Gastro-esophageal reflux disease without esophagitis; K58.9 Irritable bowel syndrome, unspecified; K59.03 Drug induced constipation; T40.2X5D Adverse effect of other opioids, subsequent encounter; M54.9 Dorsalgia, unspecified; J44.9 Chronic obstructive pulmonary disease, unspecified; G47.33 Obstructive sleep apnea (adult) (pediatric); F41.9 Anxiety disorder, unspecified; E55.9 Vitamin D deficiency, unspecified; E66.9 Obesity, unspecified; K57.90 Diverticulosis of intestine, part unspecified, without perforation or abscess without bleeding; Z90.49 Acquired absence of other specified parts of digestive tract; Z79.891 Long term (current) use of opiate analgesic; Z79.899 Other long term (current) drug therapy; Z88.5 Allergy status to narcotic agent; Z88.6 Allergy status to analgesic agent; Z88.8 Allergy status to other drugs, medicaments and biological substances; Z68.37 Body mass index [BMI] 37.0-37.9, adult

== ENCOUNTER 2020-09-18 15:21 | Emergency (ER) | payer OTHER ==
[~2020-09-18] VITALS: Ht 160 cm; Wt 94.5 kg
[~2020-09-18 15:21] MED LIST changes: +BIOF4GEL2 TOP; +DICL1GEL3 TOP; +FLUT1INH3 INH; +FLUTISP; +FURO20TA2 PO; +GABA-283 PO; -GABA-845 PO; +POLY510P14 PO; +SENN-50 PO
[2020-09-18] MEDS ORDERED: ONDANSETRON 4MG/2ML VIAL IV ONE (15:35)
[2020-09-18] MEDS ORDERED: MORPHINE 2 MG/ML 1ML VIAL (J2270) IV ONE (15:35)
[2020-09-18] MEDS ORDERED: NS 1,000 ML IV SCH (15:35)
[2020-09-18 15:52] LABS: BASO # 0.1 10^3/uL (0.0-0.2); BASO % 1.3 % (0.0-1.0); EOS # 0.3 10^3/uL (0.0-0.5); EOS % 4.3 % (0.0-3.0); HEMATOCRIT 41.9 % (36.0-47.0); HEMOGLOBIN 13.1 g/dl (12.0-15.5); LYMPH # 1.7 10^3/uL (1.5-5.0); LYMPH % 24.7 % (24.0-44.0); MEAN CORPUSCULAR HEMOGLOBIN 27.7 pg (27.0-33.0); MEAN CORPUSCULAR HGB CONC 31.3 g/dl (32.0-36.5); MEAN CORPUSCULAR VOLUME 88.6 fl (80.0-96.0); MONO # 0.8 10^3/uL (0.0-0.8); MONO % 10.9 % (2.0-8.0); NEUTROPHILS # 4.1 10^3/uL (1.5-8.5); NEUTROPHILS % 58.5 % (36.0-66.0); PLATELET COUNT, AUTOMATED 184 10^3/uL (150-450); RED BLOOD COUNT 4.73 10^6/uL (4.00-5.40)
[2020-09-18 16:16] LABS: ALBUMIN 3.3 GM/DL (3.2-5.2); ALT/SGPT 35 U/L (12-78); BILIRUBIN,DIRECT < 0.1 MG/DL (0.0-0.2); BILIRUBIN,TOTAL 0.2 MG/DL (0.2-1.0); BLOOD UREA NITROGEN 12 MG/DL (7-18); CALCIUM LEVEL 9.1 MG/DL (8.8-10.2); CARBON DIOXIDE LEVEL 32 MEQ/L (21-32); CHLORIDE LEVEL 104 MEQ/L (98-107); CREATININE FOR GFR 1.03 MG/DL (0.55-1.30); GLOMERULAR FILTRATION RATE 57.8 (>45); GLUCOSE, FASTING 123 MG/DL (70-100); LIPASE 138 U/L (73-393); POTASSIUM SERUM 3.8 MEQ/L (3.5-5.1); SODIUM LEVEL 140 MEQ/L (136-145); TOTAL PROTEIN 7.1 GM/DL (6.4-8.2)
[2020-09-18] MEDS: GASTROGRAFIN SOLUTION 30ML PO SCH ×2 (17:00→17:41)
[2020-09-18] MEDS ORDERED: ISOVUE-370 76% 100ML VIAL As Ordered ONE (17:52)
--- NOTE | 2020-09-18 19:16 | REPVR ---
PROCEDURE INFORMATION: Exam: CT Abdomen And Pelvis With Contrast Exam date and time: 09/18/2020 3:53 PM Age: 64 years old Clinical indication: Vomiting; Abdominal pain; Additional info: Gen abd pain, vomiting TECHNIQUE: Imaging protocol: Computed tomography of the abdomen and pelvis with contrast. Axial, coronal and sagittal reformatted images were created and reviewed. Radiation optimization: All CT scans at this facility use at least one of these dose optimization techniques: automated exposure control; mA and/or kV adjustment per patient size (includes targeted exams where dose is matched to clinical indication); or iterative reconstruction. Contrast material: ISOVUE 370; Contrast volume: 100 ml; Contrast route: INTRAVENOUS (IV); Other contrast: Oral, gastrografin; COMPARISON: CT ABD/PEL W/IV CONTRAST ONLY 08/27/2020 10:31 PM FINDINGS: Lungs: Linear/discoid stranding and groundglass at the lung bases, likely due to atelectasis and/or scarring. Liver: Mild hepatomegaly. Diffuse hepatic steatosis. Subcentimeter hypervascular lesion in the right hepatic lobe, likely a flash filling hemangioma. Gallbladder and bile ducts: Status post cholecystectomy. Mild central biliary ductal dilatation, likely postsurgical. Pancreas: Mild peripancreatic stranding and edema, predominantly about the head, neck and uncinate process. No necrosis or hemorrhage. Spleen: Unremarkable. Adrenal glands: Normal. No mass. Kidneys and ureters: Right renal cortical scarring. Simple right renal cysts, measuring up to 1.5 cm. Subcentimeter low-density right renal lesions, too small to characterize. No radiodense calculi. No hydronephrosis. Stomach and bowel: Moderate amount of retained stool in the colon. No obstruction. No bowel wall thickening. No pneumatosis. Moderate amount of retained stool in the colon. No obstruction. No bowel wall thickening. No pneumatosis. Appendix: Normal. Intraperitoneal space: No free fluid. No organized fluid collection. No free air. Vasculature: Mild atherosclerotic disease. No aneurysm or dissection. Lymph nodes: No pathologically enlarged lymph nodes. Urinary bladder: Unremarkable as visualized. Reproductive: Status post hysterectomy. Bones/joints: No acute osseous abnormality. Soft tissues: Unremarkable. Other findings: Elevated right hemidiaphragm. IMPRESSION: 1. Findings concerning for acute pancreatitis, as described above. Correlate with serum amylase and lipase levels. No drainable fluid collection. No necrosis or hemorrhage. 2. Additional findings, as above. COMMENTS: Consistent with the [employer]'s Incidental Findings Committee white paper (J Am Song Radiol 2018): Any incidental renal lesion less than 1 cm or classified as too small to characterize, or any incidental cystic renal lesion characterized as simple-appearing, is likely benign. No follow-up imaging is recommended for these lesions per consensus recommendations based on imaging criteria. Electronically signed by: Sourav Cordova On 09/18/2020 19:15:56 PM
[2020-09-18] MEDS ORDERED: MORPHINE 4 MG/ML 1ML VIAL/SYRINGE (J2270) IV PRN (20:10)
[2020-09-18 20:29] LABS: CK-MB VALUE MASS 1.3 NG/ML (<3.6); CPK CREATINE PHOSPHOKINASE 75 U/L (26-192); MB/CK RELATIVE INDEX 1.73 (< OR =4); TROPONIN I < 0.02 NG/ML (< 0.10)
[2020-09-18 21:06] LABS: CK-MB VALUE MASS 1.1 NG/ML (<3.6); CPK CREATINE PHOSPHOKINASE 75 U/L (26-192); LIPASE 148 U/L (73-393); MB/CK RELATIVE INDEX 1.47 (< OR =4); TROPONIN I < 0.02 NG/ML (< 0.10)
[2020-09-18] MEDS ORDERED: NICO1DIS12 (21:52)
[2020-09-18 22:45] VITALS: BP 107/60
== END 2020-09-18 22:45 | disposition home or self-care (01) ==
LOC: M ED 15:21
DX: K59.00 Constipation, unspecified (principal); I10 Essential (primary) hypertension; J44.9 Chronic obstructive pulmonary disease, unspecified; N18.30 Chronic kidney disease, stage 3 unspecified; F25.9 Schizoaffective disorder, unspecified; E55.9 Vitamin D deficiency, unspecified; G47.33 Obstructive sleep apnea (adult) (pediatric); E78.5 Hyperlipidemia, unspecified; K21.9 Gastro-esophageal reflux disease without esophagitis; K58.9 Irritable bowel syndrome, unspecified; Z79.899 Other long term (current) drug therapy; Z79.890 Hormone replacement therapy; Z88.1 Allergy status to other antibiotic agents; Z88.5 Allergy status to narcotic agent; Z88.8 Allergy status to other drugs, medicaments and biological substances; F17.210 Nicotine dependence, cigarettes, uncomplicated
CPT/HCPCS: 74177; 80048; 80076; 82550; 82553; 83690; 85025; 93041; 96361; 96374; 96375; 96376; 99285; J2270; J2405; Q9963; Q9967

== ENCOUNTER → 2020-10-13 | Outpatient (CLI) | payer OTHER ==
[~2020-10-13] MED LIST changes: +NICO1DIS12
--- NOTE | 2020-10-13 10:14 | REPPI ---
INDICATION: [id number] INJURY OF LEFT FOOT. COMPARISON: 10/23/2018 TECHNIQUE: Four views FINDINGS: There is no significant change from the prior exam. There is chronic change seen involving the mid and distal components of the 1st metatarsal and chronic changes seen involving the 1st metatarsophalangeal joint space. There is no evidence of an acute fracture. IMPRESSION: No acute abnormality noted <Electronically signed by Edil Dela Cruz > 10/13/20 1010
== END ==
LOC: M PLAIMG 09:35
PROVIDERS: ATTEND Physician Assistant
DX: S99.922A Unspecified injury of left foot, initial encounter (principal)

== ENCOUNTER → 2020-10-30 | Outpatient (CLI) | payer OTHER ==
[~2020-10-30] MED LIST changes: +ERGO500029 PO; -OXYC1TAB15 PO; +OXYC7.5T3 PO
--- NOTE | 2020-10-31 14:43 | SLEEPCENT ---
DATE: 10/30/2020 ORDERED BY: CALLIE Ybarra Nocturnal polysomnography was performed for the titration of pressure therapy in this patient with obstructive sleep apnea syndrome, apnea-hypopnea index of 8.1. For testing a ResMed F20 Airfit nasal mask with chin strap was used, 4 cm of water pressure was initially applied to the circuit, and the lights were extinguished. Seven hours and 52 minutes of data were reviewed. There were 425.5 minutes of sleep identified. Sleep latency was normal at 10.5 minutes. REM latency was normal at 64 minutes. Sleep architecture improved late in the study and there were three REM cycles noted. Overall sleep efficiency was 91.6%. The electrocardiogram showed a sinus rhythm with an average heart rate of 68 beats per minute. EEG showed normal waveforms for wake and sleep. Persistence of respiratory events prompted increases in CPAP pressure. Some central events emerged. Best sleep was seen overall on a CPAP pressure of +8. Events were not completely eliminated. However, oxygen saturations were maintained best at this pressure. There was some minor activity in the limb leads and remaining measures of sleep physiology were normal. IMPRESSIONS: Obstructive sleep apnea syndrome (G47.33). RECOMMENDATION: Nightly use of pressure therapy 8 cm of water. cc: STEPHIE DEVLIN MD
== END ==
LOC: M SLEEP 20:00
PROVIDERS: ATTEND Nurse Practitioner Family
DX: G47.33 Obstructive sleep apnea (adult) (pediatric) (principal)

== ENCOUNTER 2020-11-06 15:39 | Emergency (ER) | payer OTHER ==
--- NOTE | 2020-11-06 16:18 | REP ---
INDICATION: trauma COMPARISON: 01/27/2018 TECHNIQUE: Axial noncontrast images from the skull base to the thoracic inlet with coronal and sagittal re-formations This CT examination was performed using the following dose reduction techniques: Automated exposure control, adjustment of mA and/or kv according to the patient's size, and use of iterative reconstruction technique. FINDINGS: Normal alignment is maintained. Cervical vertebral bodies including transverse processes and spinous processes are intact and there is no evidence for acute fracture / compression injury or subluxation. Spinal canal is patent. Posterior elements are intact. Paravertebral soft tissues are normal. Moderate multilevel degenerative changes with marginal spurring and minimal disc space narrowing primarily involving C5-6 and C6-7. IMPRESSION: No evidence for acute pathology or trauma/injury. <Electronically signed by Kuldeep Borjas > 11/06/20 [id number]
--- NOTE | 2020-11-06 17:12 | REP ---
INDICATION: trauma COMPARISON: None. TECHNIQUE: AP and lateral views left humerus. FINDINGS: The osseous structures and joint spaces are intact and normal. There is no evidence for acute fracture or dislocation. Surrounding soft tissues are unremarkable. No subcutaneous emphysema or radiodense foreign body. IMPRESSION: . No acute fracture or dislocation. <Electronically signed by Kuldeep Borjas > 11/06/20 [id number]
--- NOTE | 2020-11-06 17:12 | REP ---
INDICATION: trauma COMPARISON: 08/29/2020 TECHNIQUE: Portable AP view of the chest FINDINGS: The mediastinum and cardiac silhouette are stable and within normal limits for portable technique. The lung arriaga are clear without acute consolidation, effusion, or pneumothorax. Skeletal structures are intact. IMPRESSION: No acute cardiopulmonary process appreciated. <Electronically signed by Kuldeep Borjas > 11/06/20 [id number]
--- NOTE | 2020-11-06 17:13 | REP ---
INDICATION: trauma COMPARISON: None. TECHNIQUE: AP and lateral left forearm FINDINGS: The osseous structures and joint spaces are intact and normal. There is no evidence for acute fracture or dislocation. Surrounding soft tissues are unremarkable. No subcutaneous emphysema or radiodense foreign body. IMPRESSION: . No acute fracture or dislocation. <Electronically signed by Kuldeep Borjas > 11/06/20 [id number]
--- NOTE | 2020-11-06 17:14 | REP ---
INDICATION: trauma COMPARISON: None. TECHNIQUE: Internal rotation, external rotation, and Y view right and left shoulder. FINDINGS: No acute fracture or dislocation. The acromioclavicular and glenohumeral joints are intact. No periarticular calcifications or degenerative changes are appreciated. Sub acromial space is normal. Surrounding soft tissues are unremarkable. IMPRESSION: Age-appropriate bilateral shoulder radiographs. No acute fracture or dislocation. <Electronically signed by Kuldeep Borjas > 11/06/20 [id number]
[2020-11-06 18:05] VITALS: BP 173/79
== END 2020-11-06 18:07 | disposition home or self-care (01) ==
LOC: EDBD 15:39 → M ED 15:39
DX: S50.02XA Contusion of left elbow, initial encounter (principal); V03.19XA Pedestrian with other conveyance injured in collision with car, pick-up truck or van in traffic accident, initial encounter; Y92.410 Unspecified street and highway as the place of occurrence of the external cause; I10 Essential (primary) hypertension; E03.9 Hypothyroidism, unspecified; Z79.899 Other long term (current) drug therapy; Z79.890 Hormone replacement therapy; Z88.1 Allergy status to other antibiotic agents; Z88.5 Allergy status to narcotic agent; Z88.8 Allergy status to other drugs, medicaments and biological substances; F17.210 Nicotine dependence, cigarettes, uncomplicated

== ENCOUNTER → 2020-11-30 | Outpatient (CLI) | payer OTHER ==
[2020-11-30 14:30] LABS: HEMOGLOBIN A1c 5.9 %
== END ==
LOC: M PLALAB 10:38
PROVIDERS: ATTEND Family Medicine
DX: R73.03 Prediabetes (principal)

== ENCOUNTER → 2021-01-03 | Outpatient (CLI) | payer OTHER ==
[~2021-01-03] MED LIST changes: +QUET1TAB17 PO; -QUET25TA3 PO
--- NOTE | 2021-01-03 09:40 | REP ---
INDICATION: NICOTINE DEPENDENCE COMPARISON: 12/01/2019 TECHNIQUE: Axial noncontrast images from the thoracic inlet to the upper abdomen using low-dose lung screening technique (LDCT). FINDINGS: There is a new irregular 2.1 cm area of opacity in the right lung base. Few scattered areas of chronic scarring are also identified which remains stable. No further acute consolidation, suspicious nodule or mass. Tracheobronchial tree is patent. No effusion. No pneumothorax. IMPRESSION: Lung-RADS category 4. New irregular opacity in the right lung base likely represents atelectasis and less likely true lesion. Management recommendations include short-term 3 month follow-up evaluation. <Electronically signed by Kuldeep Borjas > 01/03/21 0910
== END ==
LOC: M RAD 07:10
PROVIDERS: ATTEND Family Medicine
DX: Z12.2 Encounter for screening for malignant neoplasm of respiratory organs (principal); F17.218 Nicotine dependence, cigarettes, with other nicotine-induced disorders

== ENCOUNTER → 2021-01-12 | Outpatient (REF) | payer OTHER | LOC: M LAB REF 17:44 | PROVIDERS: ATTEND Nurse Practitioner Family | DX: E83.42 Hypomagnesemia (principal) ==

== ENCOUNTER → 2021-01-12 | Outpatient (REF) | payer OTHER ==
[2021-01-12 18:46] LABS: CALCIUM LEVEL 8.2 MG/DL (8.8-10.2); CHOLESTEROL RISK RATIO 3.268 (<5); CREATININE FOR GFR 1.1 MG/DL (0.55-1.30); FREE T4 1.29 NG/DL (0.76-1.46); GLOMERULAR FILTRATION RATE 53.4 (>45); POTASSIUM SERUM 3.7 MEQ/L (3.5-5.1); THYROID STIMULATING HORMONE 2.67 uIU/ML (0.358-3.740)
== END ==
LOC: M SFHCPLAZ 17:42
PROVIDERS: ATTEND Family Medicine
DX: E03.9 Hypothyroidism, unspecified (principal); Z13.220 Encounter for screening for lipoid disorders; N18.31 Chronic kidney disease, stage 3a

== ENCOUNTER → 2021-03-22 | Outpatient (CLI) | payer OTHER ==
[2021-03-22 17:46] LABS: HEMATOCRIT 43.5 % (36.0-47.0); HEMOGLOBIN 13.7 g/dl (12.0-15.5); MEAN CORPUSCULAR HEMOGLOBIN 28.1 pg (27.0-33.0); MEAN CORPUSCULAR HGB CONC 31.5 g/dl (32.0-36.5); MEAN CORPUSCULAR VOLUME 89.3 fl (80.0-96.0); PLATELET COUNT, AUTOMATED 185 10^3/uL (150-450); RED BLOOD COUNT 4.87 10^6/uL (4.00-5.40); WHITE BLOOD COUNT 7.4 10^3/uL (4.0-10.0)
[2021-03-22 17:59] LABS: CALCIUM LEVEL 8.7 MG/DL (8.8-10.2); CREATININE FOR GFR 1.31 MG/DL (0.55-1.30); GLOMERULAR FILTRATION RATE 43.7 (>45); POTASSIUM SERUM 3.6 MEQ/L (3.5-5.1)
== END ==
LOC: M PLALAB 14:29
PROVIDERS: ATTEND Family Medicine
DX: Z01.818 Encounter for other preprocedural examination (principal)

== ENCOUNTER → 2021-04-10 | Outpatient (CLI) | payer OTHER ==
[~2021-04-10] MED LIST changes: -CEFD1CAP8 PO; +CEFD300C41 PO; -LISI-898 PO; +LISI5TAB11 PO; +LOSA25TA13 PO; -LOSA25TA14 PO
== END ==
LOC: M RAD 09:45
PROVIDERS: ATTEND Family Medicine
DX: R91.8 Other nonspecific abnormal finding of lung field (principal)

== ENCOUNTER → 2021-05-24 | Outpatient (REF) ==
[2021-05-24 13:37] LABS: HEMOGLOBIN A1c 5.9 %
== END ==
LOC: SKLAB7 11:10
PROVIDERS: ATTEND Neuromusculoskeletal Medicine & OMM
DX: Z13.89 Encounter for screening for other disorder (principal)

== ENCOUNTER → 2021-05-29 | Outpatient (REF) ==
[2021-05-29 09:58] LABS: BASO # 0.1 10^3/uL (0.0-0.2); BASO % 1.1 % (0.0-1.0); EOS # 0.4 10^3/uL (0.0-0.5); EOS % 6.3 % (0.0-3.0); HEMATOCRIT 44.5 % (36.0-47.0); HEMOGLOBIN 13.9 g/dl (12.0-15.5); LYMPH # 2.2 10^3/uL (1.5-5.0); LYMPH % 33.8 % (24.0-44.0); MEAN CORPUSCULAR HEMOGLOBIN 27.7 pg (27.0-33.0); MEAN CORPUSCULAR HGB CONC 31.2 g/dl (32.0-36.5); MEAN CORPUSCULAR VOLUME 88.8 fl (80.0-96.0); MONO # 0.7 10^3/uL (0.0-0.8); MONO % 10.7 % (2.0-8.0); NEUTROPHILS # 3.1 10^3/uL (1.5-8.5); NEUTROPHILS % 48.1 % (36.0-66.0); PLATELET COUNT, AUTOMATED 157 10^3/uL (150-450); RED BLOOD COUNT 5.01 10^6/uL (4.00-5.40); WHITE BLOOD COUNT 6.4 10^3/uL (4.0-10.0)
[2021-05-29 10:57] LABS: ALBUMIN 3.3 GM/DL (3.2-5.2); CREATININE FOR GFR 1.09 MG/DL (0.55-1.30); POTASSIUM SERUM 4.3 MEQ/L (3.5-5.1); PTH INTACT 78.2 PG/ML (18.5-88.0)
== END ==
LOC: SKLAB7 07:19
PROVIDERS: ATTEND Neuromusculoskeletal Medicine & OMM
DX: N18.9 Chronic kidney disease, unspecified (principal)

== ENCOUNTER → 2021-06-11 | Outpatient (REF) ==
[2021-06-11 14:44] LABS: HEMATOCRIT 40.9 % (36.0-47.0); HEMOGLOBIN 13.1 g/dl (12.0-15.5); MEAN CORPUSCULAR HEMOGLOBIN 28.1 pg (27.0-33.0); MEAN CORPUSCULAR VOLUME 87.8 fl (80.0-96.0); PLATELET COUNT, AUTOMATED 147 10^3/uL (150-450); RED BLOOD COUNT 4.66 10^6/uL (4.00-5.40)
[2021-06-11 15:04] LABS: ERYTHROCYTE SEDIMENTATION RATE 31 mm/hr (0-30)
[2021-06-11 15:05] LABS: C REACTIVE PROTEIN QUANTITATIV 1.49 MG/DL (0.00-0.30); URIC ACID 8.4 MG/DL (2.6-6.0)
== END ==
LOC: SKLAB7 11:36
PROVIDERS: ATTEND Neuromusculoskeletal Medicine & OMM
DX: M79.89 Other specified soft tissue disorders (principal)

== ENCOUNTER → 2021-06-26 | Outpatient (REF) | payer OTHER ==
[2021-06-26 14:54] LABS: CALCIUM LEVEL 8.5 MG/DL (8.8-10.2); CREATININE FOR GFR 1.16 MG/DL (0.55-1.30); GLOMERULAR FILTRATION RATE 50.2 (>45); POTASSIUM SERUM 3.4 MEQ/L (3.5-5.1)
[2021-06-26 15:00] LABS: TOTAL 25(OH) VITAMIN D 59.9 NG/ML (30.0-100.0)
== END ==
LOC: SKLAB7 07:00
PROVIDERS: ATTEND Neuromusculoskeletal Medicine & OMM
DX: N18.9 Chronic kidney disease, unspecified (principal)

== ENCOUNTER → 2021-07-09 | Outpatient (REF) | LOC: SKLAB7 10:33 | PROVIDERS: ATTEND Neuromusculoskeletal Medicine & OMM | DX: M54.41 Lumbago with sciatica, right side (principal); M54.42 Lumbago with sciatica, left side ==

== ENCOUNTER 2021-07-28 20:00 | Emergency (ER) | payer OTHER ==
[~2021-07-28] VITALS: Ht 160 cm; Wt 98.2 kg
[2021-07-28 20:10] VITALS: BP 174/74
[2021-07-28] MEDS ORDERED: GABA-282 (20:35)
[2021-07-28 20:42] LABS: BASO # 0.1 10^3/uL (0.0-0.2); BASO % 0.9 % (0.0-1.0); EOS # 0.5 10^3/uL (0.0-0.5); HEMATOCRIT 42.6 % (36.0-47.0); HEMOGLOBIN 13.3 g/dl (12.0-15.5); LYMPH % 29.3 % (24.0-44.0); MEAN CORPUSCULAR HEMOGLOBIN 27.9 pg (27.0-33.0); MEAN CORPUSCULAR HGB CONC 31.2 g/dl (32.0-36.5); MEAN CORPUSCULAR VOLUME 89.5 fl (80.0-96.0); MONO # 0.7 10^3/uL (0.0-0.8); MONO % 10.3 % (2.0-8.0); NEUTROPHILS # 3.5 10^3/uL (1.5-8.5); NEUTROPHILS % 52.4 % (36.0-66.0); PLATELET COUNT, AUTOMATED 193 10^3/uL (150-450); RED BLOOD COUNT 4.76 10^6/uL (4.00-5.40); WHITE BLOOD COUNT 6.7 10^3/uL (4.0-10.0)
[2021-07-28 21:09] LABS: CALCIUM LEVEL 8.3 MG/DL (8.8-10.2); CREATININE FOR GFR 1.16 MG/DL (0.55-1.30); GLOMERULAR FILTRATION RATE 50.2 (>45); POTASSIUM SERUM 3.3 MEQ/L (3.5-5.1)
[2021-07-28] MEDS ORDERED: POTASSIUM CHLORIDE 10MEQ SR TABLET PO ONE (21:25)
[2021-07-28] MEDS ORDERED: POTASSIUM CHLORIDE 10% LIQ 20 MEQ/15 ML UDC PO ONE (21:40)
[2021-07-29] MEDS ORDERED: KETO10TAB PO (13:59)
[2021-08-20] MEDS ORDERED: OXYB10TA23 (09:48)
[2021-08-20] MEDS ORDERED: OXYC-141 (09:48)
[2021-08-20] MEDS ORDERED: TIZA2CAP PO (09:48)
== END 2021-07-28 22:07 | disposition home or self-care (01) ==
LOC: M ED 20:00
DX: S09.90XA Unspecified injury of head, initial encounter (principal); W22.8XXA Striking against or struck by other objects, initial encounter; Y92.811 Bus as the place of occurrence of the external cause; M54.2 Cervicalgia; I12.9 Hypertensive chronic kidney disease with stage 1 through stage 4 chronic kidney disease, or unspecified chronic kidney disease; N18.9 Chronic kidney disease, unspecified; J43.9 Emphysema, unspecified; R73.03 Prediabetes; E07.9 Disorder of thyroid, unspecified; F25.9 Schizoaffective disorder, unspecified; G43.909 Migraine, unspecified, not intractable, without status migrainosus; G47.33 Obstructive sleep apnea (adult) (pediatric); K58.9 Irritable bowel syndrome, unspecified; G89.29 Other chronic pain; M54.50 Low back pain, unspecified; Z88.1 Allergy status to other antibiotic agents; Z88.5 Allergy status to narcotic agent; Z88.8 Allergy status to other drugs, medicaments and biological substances; Z79.899 Other long term (current) drug therapy; Z79.890 Hormone replacement therapy

== ENCOUNTER 2021-07-29 10:12 | Emergency (ER) | payer OTHER ==
[~2021-07-29] VITALS: Ht 160 cm; Wt 98.2 kg
[~2021-07-29 10:12] MED LIST changes: +GABA-282
[2021-07-29] MEDS ORDERED: ONDANSETRON 4 MG ORAL DISINTEGRATING TAB PO ONE (12:50)
[2021-07-29] MEDS ORDERED: KETOROLAC 30 MG/ML 1ML VIAL IM ONE (12:50)
[2021-07-29] MEDS ORDERED: KETO10TAB PO (13:59)
[2021-07-29 14:11] VITALS: BP 129/86
== END 2021-07-29 14:13 | disposition home or self-care (01) ==
LOC: EDBD 10:12 → M ED 10:12
DX: S06.0X0A Concussion without loss of consciousness, initial encounter (principal); S63.501A Unspecified sprain of right wrist, initial encounter; W22.8XXA Striking against or struck by other objects, initial encounter; Y92.811 Bus as the place of occurrence of the external cause; I10 Essential (primary) hypertension; J43.9 Emphysema, unspecified; K21.9 Gastro-esophageal reflux disease without esophagitis; K58.9 Irritable bowel syndrome, unspecified; Z79.899 Other long term (current) drug therapy; Z88.1 Allergy status to other antibiotic agents; Z88.5 Allergy status to narcotic agent; Z88.8 Allergy status to other drugs, medicaments and biological substances
CPT/HCPCS: 73110; 96372; 99284; J1885; Q0162

== ENCOUNTER → 2021-08-04 | Outpatient (CLI) | payer OTHER ==
[~2021-08-04] MED LIST changes: +KETO10TAB PO
[2021-08-04 12:31] LABS: HEMATOCRIT 41.2 % (36.0-47.0); HEMOGLOBIN 13.3 g/dl (12.0-15.5); MEAN CORPUSCULAR HEMOGLOBIN 28.1 pg (27.0-33.0); MEAN CORPUSCULAR HGB CONC 32.3 g/dl (32.0-36.5); MEAN CORPUSCULAR VOLUME 87.1 fl (80.0-96.0); PLATELET COUNT, AUTOMATED 170 10^3/uL (150-450); RED BLOOD COUNT 4.73 10^6/uL (4.00-5.40); WHITE BLOOD COUNT 6.5 10^3/uL (4.0-10.0)
[2021-08-04 12:52] LABS: ALBUMIN 3.2 GM/DL (3.2-5.2); BILIRUBIN,TOTAL 0.2 MG/DL (0.2-1.0); C REACTIVE PROTEIN QUANTITATIV 0.99 MG/DL (0.00-0.30); CHOLESTEROL RISK RATIO 3.119 (<5); CREATININE FOR GFR 1.17 MG/DL (0.55-1.30); GLOMERULAR FILTRATION RATE 49.7 (>45); HEMOGLOBIN A1c 6.1 %; POTASSIUM SERUM 3.9 MEQ/L (3.5-5.1); TOTAL PROTEIN 6.5 GM/DL (6.4-8.2)
[2021-08-04 13:00] LABS: CREATININE, URINE 23.6 MG/DL; MALB URINE SIEMENS < 5.0 MG/L; MAU/CREAT RATIO 21.1 MCG/MG (0.0-30.0)
[2021-08-06 08:04] LABS: TOTAL 25(OH) VITAMIN D 65.1 NG/ML (30.0-100.0)
== END ==
LOC: M LAB 11:47
PROVIDERS: ATTEND Internal Medicine Hematology
DX: M54.42 Lumbago with sciatica, left side (principal)

== ENCOUNTER 2021-08-13 20:03 | Emergency (ER) | payer OTHER ==
[~2021-08-13] VITALS: Ht 160 cm; Wt 98.1 kg
[2021-08-13] MEDS ORDERED: METOCLOPRAMIDE INJ 10MG/2ML VIAL (J2765 PER 1) IV ONE (21:00)
[2021-08-13] MEDS ORDERED: NS 1,000 ML IV SCH (21:00)
[2021-08-13 22:04] LABS: BASO # 0.1 10^3/uL (0.0-0.2); BASO % 1.5 % (0.0-1.0); EOS # 0.5 10^3/uL (0.0-0.5); EOS % 6.2 % (0.0-3.0); HEMATOCRIT 45.5 % (36.0-47.0); HEMOGLOBIN 14.5 g/dl (12.0-15.5); LYMPH # 2.2 10^3/uL (1.5-5.0); LYMPH % 27.5 % (24.0-44.0); MEAN CORPUSCULAR HEMOGLOBIN 28.7 pg (27.0-33.0); MEAN CORPUSCULAR HGB CONC 31.9 g/dl (32.0-36.5); MEAN CORPUSCULAR VOLUME 89.9 fl (80.0-96.0); MONO # 0.9 10^3/uL (0.0-0.8); MONO % 10.8 % (2.0-8.0); NEUTROPHILS # 4.2 10^3/uL (1.5-8.5); NEUTROPHILS % 53.6 % (36.0-66.0); PLATELET COUNT, AUTOMATED 160 10^3/uL (150-450); RED BLOOD COUNT 5.06 10^6/uL (4.00-5.40); WHITE BLOOD COUNT 7.9 10^3/uL (4.0-10.0)
[2021-08-13 22:53] LABS: CALCIUM LEVEL 8.7 MG/DL (8.8-10.2); CREATININE FOR GFR 1.18 MG/DL (0.55-1.30); FREE T4 1.26 NG/DL (0.76-1.46); GLOMERULAR FILTRATION RATE 49.2 (>45); POTASSIUM SERUM 4.3 MEQ/L (3.5-5.1); THYROID STIMULATING HORMONE 2.35 uIU/ML (0.358-3.740)
[2021-08-13 23:30] VITALS: BP 121/57
== END 2021-08-14 00:07 | disposition home or self-care (01) ==
LOC: M ED 20:03
DX: R51.9 Headache, unspecified (principal); I12.9 Hypertensive chronic kidney disease with stage 1 through stage 4 chronic kidney disease, or unspecified chronic kidney disease; N18.9 Chronic kidney disease, unspecified; R73.03 Prediabetes; J43.9 Emphysema, unspecified; E07.9 Disorder of thyroid, unspecified; G43.909 Migraine, unspecified, not intractable, without status migrainosus; G47.33 Obstructive sleep apnea (adult) (pediatric); K58.9 Irritable bowel syndrome, unspecified; G89.29 Other chronic pain; M54.9 Dorsalgia, unspecified; F25.9 Schizoaffective disorder, unspecified; Z79.899 Other long term (current) drug therapy; Z79.890 Hormone replacement therapy
CPT/HCPCS: 70450; 80048; 84439; 84443; 85025; 93005; 93041; 94760; 96374; 99285; J2765

== ENCOUNTER → 2021-08-29 | Outpatient (CLI) | payer OTHER ==
[~2021-08-29] MED LIST changes: +OXYB10TA23; +OXYC-141
== END ==
LOC: M LABSMTC 10:25
PROVIDERS: ATTEND Anesthesiology
DX: Z01.818 Encounter for other preprocedural examination (principal); Z11.52 Encounter for screening for COVID-19

== ENCOUNTER 2021-09-03 10:06 | Day surgery (SDC) | payer OTHER ==
[~2021-09-03] VITALS: Ht 160 cm; Wt 98.9 kg
[~2021-09-03 10:06] MED LIST changes: +NS 1,000 ML IV ONE
[2021-09-03] MEDS ORDERED: fentaNYL 100 MCG/2 ML INJECTION As Ordered ONE (11:53)
[2021-09-03] MEDS ORDERED: propofoL 200 MG/20 ML VIAL As Ordered ONE (12:16)
[2021-09-03] MEDS ORDERED: ONDANSETRON 4MG/2ML VIAL As Ordered ONE (12:26)
[2021-09-03] MEDS ORDERED: ONDANSETRON 4MG/2ML VIAL IV ONE (12:30)
[2021-09-03 12:56] VITALS: BP 154/75
== END 2021-09-03 12:58 | disposition home or self-care (01) ==
LOC: M OPP 10:06
PROVIDERS: ATTEND Internal Medicine Gastroenterology
DX: K22.89 Other specified disease of esophagus (principal); K31.89 Other diseases of stomach and duodenum; K29.70 Gastritis, unspecified, without bleeding; R12 Heartburn; G47.33 Obstructive sleep apnea (adult) (pediatric); Z99.89 Dependence on other enabling machines and devices; Z79.890 Hormone replacement therapy; Z79.891 Long term (current) use of opiate analgesic; Z79.899 Other long term (current) drug therapy; Z88.1 Allergy status to other antibiotic agents; Z88.5 Allergy status to narcotic agent; Z88.8 Allergy status to other drugs, medicaments and biological substances; F17.210 Nicotine dependence, cigarettes, uncomplicated
CPT/HCPCS: 43239; 88305; 88342; J2405; J3010

== ENCOUNTER 2021-09-07 12:42 | Outpatient (RCR) | payer OTHER ==
[~2021-09-07 12:42] MED LIST changes: -NS 1,000 ML IV ONE
== END 2021-09-08 ==
LOC: M PT 12:42
PROVIDERS: ATTEND Orthopaedic Surgery
DX: M47.812 Spondylosis without myelopathy or radiculopathy, cervical region (principal)

== ENCOUNTER → 2021-10-17 | Outpatient (REF) | payer OTHER ==
[~2021-10-17] MED LIST changes: +ALBU2.5V10 INH; -ALBU83IN INH
[2021-10-24 11:07] LABS: CREATININE, URINE 21.3 mg/dL (20.0-300.0); OPIATES, URINE Negative ng/mL (Cutoff=300); OXYCODONE URINE Positive (.); OXYCODONE, URINE CONFIRM 3186 ng/mL (Cutoff=100); OXYCODONE/OXYMORPH, URINE Positive (Cutoff=100); OXYMORPHONE, URINE Positive (.); OXYMORPHONE, URINE CONFIRM 2106 ng/mL (Cutoff=100)
== END ==
LOC: M SFHCPLAZ 13:02
PROVIDERS: ATTEND Internal Medicine Hematology
DX: F11.10 Opioid abuse, uncomplicated (principal)

== ENCOUNTER 2021-10-26 14:36 | Emergency (ER) | payer OTHER ==
[~2021-10-26] VITALS: Ht 160 cm; Wt 106.2 kg
[2021-10-26] MEDS ORDERED: NS 1,000 ML IV ONE (17:10)
[2021-10-26] MEDS ORDERED: ISOVUE-370 76% 100ML VIAL As Ordered ONE (17:55)
[2021-10-26 18:03] LABS: BASO # 0.1 10^3/uL (0.0-0.2); BASO % 0.9 % (0.0-1.0); EOS # 0.6 10^3/uL (0.0-0.5); EOS % 7.1 % (0.0-3.0); HEMATOCRIT 40.5 % (36.0-47.0); HEMOGLOBIN 12.6 g/dl (12.0-15.5); LYMPH # 2.2 10^3/uL (1.5-5.0); LYMPH % 26.7 % (24.0-44.0); MEAN CORPUSCULAR HEMOGLOBIN 27.9 pg (27.0-33.0); MEAN CORPUSCULAR HGB CONC 31.1 g/dl (32.0-36.5); MEAN CORPUSCULAR VOLUME 89.6 fl (80.0-96.0); MONO # 0.8 10^3/uL (0.0-0.8); MONO % 9.3 % (2.0-8.0); NEUTROPHILS # 4.5 10^3/uL (1.5-8.5); NEUTROPHILS % 55.5 % (36.0-66.0); PLATELET COUNT, AUTOMATED 168 10^3/uL (150-450); RED BLOOD COUNT 4.52 10^6/uL (4.00-5.40); WHITE BLOOD COUNT 8.2 10^3/uL (4.0-10.0)
[2021-10-26 18:19] LABS: INR 0.95; PROTHROMBIN TIME 13.1 SECONDS (12.7-14.5)
[2021-10-26 18:36] LABS: RSV AMPLIFICATION NEGATIVE (NEGATIVE)
[2021-10-26] MEDS: COMBIVENT RESPIMAT 100-20MCG INHALER 4GM INH SCH ×3 (19:30→19:50)
[2021-10-26] MEDS ORDERED: BENZ200C70 PO (19:50)
[2021-10-26 20:55] VITALS: BP 135/65
== END 2021-10-26 21:02 | disposition home or self-care (01) ==
LOC: M ED 14:36
DX: J44.9 Chronic obstructive pulmonary disease, unspecified (principal); R04.0 Epistaxis; I10 Essential (primary) hypertension; E11.9 Type 2 diabetes mellitus without complications; N18.30 Chronic kidney disease, stage 3 unspecified; G47.33 Obstructive sleep apnea (adult) (pediatric); Z79.899 Other long term (current) drug therapy; Z88.1 Allergy status to other antibiotic agents; Z88.5 Allergy status to narcotic agent; Z88.8 Allergy status to other drugs, medicaments and biological substances; F17.210 Nicotine dependence, cigarettes, uncomplicated
CPT/HCPCS: 71275; 80047; 85025; 85610; 85730; 86850; 86900; 86901; 87631; 94640; 96360; 99284; Q9967

== ENCOUNTER → 2022-01-29 | Outpatient (REF) ==
[~2022-01-29] MED LIST changes: +BENZ200C70 PO
[2022-01-29 11:58] LABS: APPEARANCE, URINE MANUAL CLEAR (CLEAR); COLOR, URINE MANUAL YELLOW (YELLOW); GLUCOSE, URINE (UA) MANUAL NEGATIVE (NEGATIVE); KETONE, URINE MANUAL NEGATIVE (NEGATIVE); PROTEIN, URINE MANUAL NEGATIVE (NEGATIVE); SPECIFIC GRAVITY,URINE MANUAL 1.015 (1.002-1.035)
[2022-01-29 11:59] LABS: BILIRUBIN, URINE MANUAL NEGATIVE (NEGATIVE); BLOOD URINE MANUAL NEGATIVE (NEGATIVE); LEUKOCYTE ESTERASE, URINE MAN POSITIVE (NEGATIVE); NITRITE, URINE MANUAL NEGATIVE (NEGATIVE); UROBILINOGEN, URINE MANUAL NORMAL (NORMAL)
[2022-01-29 12:03] LABS: BACTERIA, URINE MOD AMOUNT; HYALINE CAST, URINE NONE SEEN /lpf (0-1); RBC, URINE 0-1 /hpf (0-3); SQUAMOUS EPITHELIAL CELL URINE SMALL AMOUNT /hpf (SMALL AMT)
== END ==
LOC: M LAB REF 11:42
PROVIDERS: ATTEND Internal Medicine Hematology
DX: N39.0 Urinary tract infection, site not specified (principal)

== ENCOUNTER → 2022-06-13 | Outpatient (CLI) | payer OTHER ==
[~2022-06-13] MED LIST changes: +LIDO2SO TOP; -LIDO2SOL9 TOP
[2022-06-13 17:16] LABS: HEMATOCRIT 39.5 % (36.0-47.0); HEMOGLOBIN 11.7 g/dl (12.0-15.5); MEAN CORPUSCULAR HGB CONC 29.6 g/dl (32.0-36.5); PLATELET COUNT, AUTOMATED 123 10^3/uL (150-450); RED BLOOD COUNT 4.34 10^6/uL (4.00-5.40); WHITE BLOOD COUNT 5.4 10^3/uL (4.0-10.0)
[2022-06-13 17:39] LABS: CREATININE, URINE 28.5 MG/DL
[2022-06-13 17:40] LABS: MALB URINE SIEMENS < 3.0 MG/DL; MAU/CREAT RATIO 10.5 MCG/MG (0.0-30.0)
[2022-06-13 21:19] LABS: HEMOGLOBIN A1c 5.6 % (4.0-6.0)
[2022-06-13 23:02] LABS: FERRITIN 16.9 NG/ML (7.3-270.7); FREE T4 0.78 NG/DL (0.89-1.76); THYROID STIMULATING HORMONE 7.11 uIU/ML (0.55-4.78)
[2022-06-13 23:43] LABS: C REACTIVE PROTEIN QUANTITATIV 2.6 MG/DL (<1.0)
[2022-06-13 23:45] LABS: CHOLESTEROL RISK RATIO 3.33 (<5); HDL CHOLESTEROL 36.9 MG/DL (>40); LDL CHOLESTEROL 44.7 MG/DL (<100)
[2022-06-13 23:46] LABS: PERCENT SATURATION 9.5 % (13.2-45.0)
== END ==
LOC: M PLALAB 14:24
PROVIDERS: ATTEND Internal Medicine Hematology
DX: M19.032 Primary osteoarthritis, left wrist (principal); M85.832 Other specified disorders of bone density and structure, left forearm; M25.532 Pain in left wrist; N18.31 Chronic kidney disease, stage 3a

== ENCOUNTER 2022-07-09 11:19 | Inpatient (IN) | payer OTHER ==
[~2022-07-09] VITALS: Ht 160 cm; Wt 98.6 kg
[~2022-07-09 11:19] MED LIST changes: -LIDO2SO TOP; +LIDO2SOL9 TOP
[2022-07-09] MEDS ORDERED: QUET1TAB17 (11:54)
[2022-07-09] MEDS ORDERED: LORA2TAB14 (11:54)
[2022-07-09] MEDS ORDERED: ACE65ERTAB (11:54)
[2022-07-09] MEDS ORDERED: LANS15CA PO (11:54)
[2022-07-09] MEDS ORDERED: MORPHINE 4 MG/ML 1ML VIAL IV ONE (12:55)
[2022-07-09] MEDS ORDERED: METOCLOPRAMIDE INJ 10MG/2ML VIAL IV ONE (12:55)
[2022-07-09] MEDS ORDERED: FUROSEMIDE 40MG/4ML VIAL IV ONE (14:10)
[2022-07-09 14:14] LABS: BASO % 0.4 % (0.0-1.0); HEMATOCRIT 39.9 % (36.0-47.0); HEMOGLOBIN 12.6 g/dl (12.0-15.5); LYMPH # 1.1 10^3/uL (1.5-5.0); LYMPH % 16.3 % (24.0-44.0); MEAN CORPUSCULAR HEMOGLOBIN 27.4 pg (27.0-33.0); MEAN CORPUSCULAR HGB CONC 31.6 g/dl (32.0-36.5); MEAN CORPUSCULAR VOLUME 86.7 fl (80.0-96.0); MONO # 0.6 10^3/uL (0.0-0.8); MONO % 8.6 % (2.0-8.0); NEUTROPHILS # 5.1 10^3/uL (1.5-8.5); NEUTROPHILS % 73.8 % (36.0-66.0); PLATELET COUNT, AUTOMATED 153 10^3/uL (150-450); WHITE BLOOD COUNT 6.9 10^3/uL (4.0-10.0)
[2022-07-09 14:48] LABS: ALBUMIN 3.5 G/DL (3.2-5.2); ALKALINE PHOSPHATASE 158 U/L (46-116); ALT/SGPT 45 U/L (7.0-40); AST/SGOT 39 U/L (<34); BILIRUBIN,DIRECT 0.1 MG/DL (<0.4); BILIRUBIN,TOTAL 0.4 MG/DL (0.3-1.2); BLOOD UREA NITROGEN 13 MG/DL (9-23); CALCIUM LEVEL 8.8 MG/DL (8.3-10.6); CARBON DIOXIDE LEVEL 24 MMOL/L (20-31); CHLORIDE LEVEL 103 MMOL/L (98-107); CREATININE FOR GFR 0.91 MG/DL (0.55-1.30); GLOMERULAR FILTRATION RATE > 60.0 (>45); GLUCOSE, FASTING 98 MG/DL (74-106); POTASSIUM SERUM 3.8 MMOL/L (3.5-5.1); SODIUM LEVEL 136 MMOL/L (136-145); THYROID STIMULATING HORMONE 3.796 uIU/ML (0.55-4.78); THYROXINE (T4) 8.4 UG/DL (4.5-10.9); TOTAL PROTEIN 7.8 G/DL (5.7-8.2)
[2022-07-09] MEDS ORDERED: ISOVUE-370 76% 100ML VIAL As Ordered ONE ×2 (15:02→15:21)
[2022-07-09] MEDS ORDERED: IPRATROPIUM 0.5MG/ALBUTEROL 2.5MG INH SOL UD 3ML (DUONEB) NEB PRN (16:50)
[2022-07-09] MEDS ORDERED: MORPHINE 4 MG/ML 1ML VIAL IV PRN (16:50)
[2022-07-09] MEDS ORDERED: BUMETANIDE 1 MG TAB PO SCH (17:00)
[2022-07-09 20:11] VITALS: BP 193/84
[2022-07-09] MEDS: IPRATROPIUM 0.5MG/ALBUTEROL 2.5MG INH SOL UD 3ML (DUONEB) NEB SCH (20:29)
[2022-07-09 20:30] VITALS: BP 180/80
[2022-07-09 22:27] VITALS: BP_SYST 174; BP_SYST 180; BP_DIAS 80; BP_DIAS 85
[2022-07-09] MEDS ORDERED: **hydrALAZINE** 10 MG TAB PO ONE (23:00)
[2022-07-09 23:46] VITALS: BP 174/80
[2022-07-10] VITALS (7 sets, daily range): BP systolic 128–174; BP diastolic 60–81
[2022-07-10] MEDS: IPRATROPIUM 0.5MG/ALBUTEROL 2.5MG INH SOL UD 3ML (DUONEB) NEB SCH ×4 (01:09→18:57)
[2022-07-10] MEDS ORDERED: OXYC30TA PO (02:33)
[2022-07-10] MEDS ORDERED: QUET1TAB17 PO (02:33)
[2022-07-10] MEDS ORDERED: CELE1CAP9 PO (02:33)
[2022-07-10] MEDS ORDERED: LORA2TAB14 PO (02:33)
[2022-07-10] MEDS ORDERED: GABA600T4 PO (02:33)
[2022-07-10] MEDS ORDERED: TIZA1TAB12 PO (02:33)
[2022-07-10] MEDS ORDERED: FURO40TA2 PO (02:33)
[2022-07-10] MEDS ORDERED: PATIENT COMMENT (02:44)
[2022-07-10] MEDS ORDERED: HOME MED LIST COMPLETE! XX SCH (02:45)
[2022-07-10 04:40] LABS: HEMATOCRIT 39.8 % (36.0-47.0); HEMOGLOBIN 12.7 g/dl (12.0-15.5); MEAN CORPUSCULAR HEMOGLOBIN 26.6 pg (27.0-33.0); MEAN CORPUSCULAR HGB CONC 31.9 g/dl (32.0-36.5); MEAN CORPUSCULAR VOLUME 83.4 fl (80.0-96.0); PLATELET COUNT, AUTOMATED 174 10^3/uL (150-450); RED BLOOD COUNT 4.77 10^6/uL (4.00-5.40); WHITE BLOOD COUNT 7.4 10^3/uL (4.0-10.0)
[2022-07-10 04:50] LABS: INR 1.1; PROTHROMBIN TIME 14.4 SECONDS (12.5-14.5)
[2022-07-10 04:51] LABS: PARTIAL THROMBOPLASTIN TIME 26.8 SECONDS (24.8-34.2)
[2022-07-10] MEDS ORDERED: LORazepam 2 MG TAB PO PRN (05:20)
[2022-07-10 05:27] LABS: CALCIUM LEVEL 8.4 MG/DL (8.3-10.6); CREATININE FOR GFR 1.07 MG/DL (0.55-1.30); POTASSIUM SERUM 3.2 MMOL/L (3.5-5.1)
[2022-07-10] MEDS: LEVOTHYROXINE 150MCG TABLET (0.15MG) PO SCH (06:17)
[2022-07-10 07:45] LABS: MAGNESIUM LEVEL 2.1 MG/DL (1.8-2.4)
[2022-07-10] MEDS: GABAPENTIN 300 MG CAP PO SCH ×3 (08:22→21:00)
[2022-07-10] MEDS: MAGNESIUM GLUCONATE 500 MG TAB PO SCH ×2 (08:22→21:00)
[2022-07-10] MEDS: BUMETANIDE 1 MG TAB PO SCH ×2 (08:22→17:01)
[2022-07-10] MEDS: OMEPRAZOLE 20MG CAP PO SCH (08:23)
[2022-07-10] MEDS: POTASSIUM CHLORIDE 10MEQ SR TABLET PO SCH ×2 (08:23→21:00)
[2022-07-10] MEDS: QUEtiapine FUMARATE 25 MG TAB PO SCH ×2 (08:24→20:56)
[2022-07-10] MEDS ORDERED: BUMETANIDE 1 MG TAB PO SCH (09:00)
[2022-07-10] MEDS ORDERED: LOSARTAN 25 MG TAB PO SCH (09:00)
[2022-07-10] MEDS: RIVAROXABAN 10MG TAB (XARELTO) PO SCH (17:00)
[2022-07-10] MEDS ORDERED: MAG SULF 1GM/100ML (MAG RUN) 1 GM in IV 1 EA IV ONE (22:00)
[2022-07-10] MEDS: POTASSIUM CHLORIDE 10% LIQ 20MEQ/15ML UDC PO SCH (22:06)
[2022-07-11 00:13] VITALS: BP 170/78
[2022-07-11] MEDS: IPRATROPIUM 0.5MG/ALBUTEROL 2.5MG INH SOL UD 3ML (DUONEB) NEB SCH ×4 (01:13→19:38)
[2022-07-11 04:15] VITALS: BP 160/88
[2022-07-11 05:22] LABS: BASO % 0.4 % (0.0-1.0); EOS % 0.1 % (0.0-3.0); HEMATOCRIT 42.9 % (36.0-47.0); HEMOGLOBIN 13.8 g/dl (12.0-15.5); LYMPH # 1.5 10^3/uL (1.5-5.0); MEAN CORPUSCULAR HEMOGLOBIN 26.6 pg (27.0-33.0); MEAN CORPUSCULAR HGB CONC 32.2 g/dl (32.0-36.5); MEAN CORPUSCULAR VOLUME 82.8 fl (80.0-96.0); MONO # 0.9 10^3/uL (0.0-0.8); MONO % 11.3 % (2.0-8.0); NEUTROPHILS # 5.3 10^3/uL (1.5-8.5); NEUTROPHILS % 68.6 % (36.0-66.0); PLATELET COUNT, AUTOMATED 177 10^3/uL (150-450); RED BLOOD COUNT 5.18 10^6/uL (4.00-5.40); WHITE BLOOD COUNT 7.8 10^3/uL (4.0-10.0)
[2022-07-11 05:40] LABS: ALBUMIN 3.6 G/DL (3.2-5.2); BILIRUBIN,TOTAL 0.6 MG/DL (0.3-1.2); CALCIUM LEVEL 8.1 MG/DL (8.3-10.6); CREATININE FOR GFR 1.05 MG/DL (0.55-1.30); GLOMERULAR FILTRATION RATE 56.2 (>45); POTASSIUM SERUM 3.6 MMOL/L (3.5-5.1); TOTAL PROTEIN 7.7 G/DL (5.7-8.2)
[2022-07-11] MEDS: LEVOTHYROXINE 150MCG TABLET (0.15MG) PO SCH (06:20)
[2022-07-11 08:27] VITALS: BP 145/74
[2022-07-11] MEDS: GABAPENTIN 300 MG CAP PO SCH ×3 (09:46→21:00)
[2022-07-11] MEDS: POTASSIUM CHLORIDE 10% LIQ 20MEQ/15ML UDC PO SCH ×2 (09:47→21:00)
[2022-07-11] MEDS: LOSARTAN 50MG TABLET PO SCH (09:47)
[2022-07-11] MEDS: MAGNESIUM GLUCONATE 500 MG TAB PO SCH ×2 (09:47→21:00)
[2022-07-11] MEDS: BUMETANIDE 1 MG TAB PO SCH ×2 (09:48→17:38)
[2022-07-11] MEDS: OMEPRAZOLE 20MG CAP PO SCH (09:48)
[2022-07-11] MEDS: QUEtiapine FUMARATE 25 MG TAB PO SCH ×2 (09:53→21:00)
[2022-07-11] MEDS: RIVAROXABAN 10MG TAB (XARELTO) PO SCH (17:37)
[2022-07-12] MEDS: IPRATROPIUM 0.5MG/ALBUTEROL 2.5MG INH SOL UD 3ML (DUONEB) NEB SCH ×4 (02:03→19:56)
[2022-07-12] MEDS: LEVOTHYROXINE 150MCG TABLET (0.15MG) PO SCH (04:56)
[2022-07-12 05:35] LABS: BASO # 0.1 10^3/uL (0.0-0.2); BASO % 0.6 % (0.0-1.0); EOS % 0.1 % (0.0-3.0); HEMATOCRIT 46.5 % (36.0-47.0); HEMOGLOBIN 14.4 g/dl (12.0-15.5); LYMPH # 1.7 10^3/uL (1.5-5.0); LYMPH % 18.4 % (24.0-44.0); MEAN CORPUSCULAR HEMOGLOBIN 26.4 pg (27.0-33.0); MEAN CORPUSCULAR VOLUME 85.3 fl (80.0-96.0); MONO # 0.9 10^3/uL (0.0-0.8); MONO % 10.3 % (2.0-8.0); NEUTROPHILS # 6.3 10^3/uL (1.5-8.5); NEUTROPHILS % 70.2 % (36.0-66.0); PLATELET COUNT, AUTOMATED 189 10^3/uL (150-450); RED BLOOD COUNT 5.45 10^6/uL (4.00-5.40)
[2022-07-12 06:03] LABS: ALBUMIN 3.7 G/DL (3.2-5.2); BILIRUBIN,TOTAL 0.5 MG/DL (0.3-1.2); CALCIUM LEVEL 8.2 MG/DL (8.3-10.6); CREATININE FOR GFR 1.07 MG/DL (0.55-1.30); TOTAL PROTEIN 7.9 G/DL (5.7-8.2)
[2022-07-12 08:01] VITALS: BP 158/80
[2022-07-12] MEDS: GABAPENTIN 300 MG CAP PO SCH ×3 (09:21→20:25)
[2022-07-12] MEDS: MAGNESIUM GLUCONATE 500 MG TAB PO SCH ×2 (09:21→20:26)
[2022-07-12] MEDS: BUMETANIDE 1 MG TAB PO SCH ×2 (09:21→16:08)
[2022-07-12] MEDS: LOSARTAN 50MG TABLET PO SCH (09:21)
[2022-07-12] MEDS: OMEPRAZOLE 20MG CAP PO SCH (09:22)
[2022-07-12] MEDS: POTASSIUM CHLORIDE 10% LIQ 20MEQ/15ML UDC PO SCH ×2 (09:22→20:25)
[2022-07-12] MEDS: QUEtiapine FUMARATE 25 MG TAB PO SCH ×2 (09:22→20:26)
[2022-07-12 15:08] LABS: BODY FLUID CULTURE Not indicated. (.); LEGIONELLA ANTIGEN URINE Negative (Negative); ORGANISM ID Not indicated. (.); SPECIMEN SOURCE Urine (.); URINE STREP PNEUMONIAE ANTIGEN Negative (Negative)
[2022-07-12] MEDS: RIVAROXABAN 10MG TAB (XARELTO) PO SCH (18:40)
[2022-07-12 20:00] VITALS: BP 136/79
[2022-07-12] MEDS: tiZANidine 4 MG TAB PO PRN (20:26)
[2022-07-12] MEDS ORDERED: PILL CUTTER 1 EACH XX PRN (21:30)
[2022-07-13] MEDS: IPRATROPIUM 0.5MG/ALBUTEROL 2.5MG INH SOL UD 3ML (DUONEB) NEB SCH ×4 (02:00→20:08)
[2022-07-13 04:12] LABS: BASO # 0.1 10^3/uL (0.0-0.2); EOS # 0.1 10^3/uL (0.0-0.5); EOS % 1.3 % (0.0-3.0); HEMATOCRIT 45.7 % (36.0-47.0); HEMOGLOBIN 14.5 g/dl (12.0-15.5); LYMPH # 2.3 10^3/uL (1.5-5.0); LYMPH % 24.5 % (24.0-44.0); MEAN CORPUSCULAR HEMOGLOBIN 27.1 pg (27.0-33.0); MEAN CORPUSCULAR HGB CONC 31.7 g/dl (32.0-36.5); MEAN CORPUSCULAR VOLUME 85.3 fl (80.0-96.0); MONO # 0.8 10^3/uL (0.0-0.8); MONO % 8.9 % (2.0-8.0); NEUTROPHILS % 63.8 % (36.0-66.0); PLATELET COUNT, AUTOMATED 190 10^3/uL (150-450); RED BLOOD COUNT 5.36 10^6/uL (4.00-5.40); WHITE BLOOD COUNT 9.4 10^3/uL (4.0-10.0)
[2022-07-13 04:35] LABS: ALBUMIN 3.5 G/DL (3.2-5.2); BILIRUBIN,TOTAL 0.6 MG/DL (0.3-1.2); CALCIUM LEVEL 8.1 MG/DL (8.3-10.6); CREATININE FOR GFR 1.21 MG/DL (0.55-1.30); GLOMERULAR FILTRATION RATE 47.7 (>45); POTASSIUM SERUM 4.5 MMOL/L (3.5-5.1); TOTAL PROTEIN 7.5 G/DL (5.7-8.2)
[2022-07-13] MEDS: MORPHINE 30 MG TAB **MSIR PO PRN ×3 (05:04→20:37)
[2022-07-13] MEDS: LEVOTHYROXINE 150MCG TABLET (0.15MG) PO SCH (05:46)
[2022-07-13 07:49] VITALS: BP 154/80
[2022-07-13] MEDS: tiZANidine 4 MG TAB PO PRN (08:31)
[2022-07-13] MEDS: MAGNESIUM GLUCONATE 500 MG TAB PO SCH ×2 (08:31→20:36)
[2022-07-13] MEDS: POTASSIUM CHLORIDE 10% LIQ 20MEQ/15ML UDC PO SCH (08:31)
[2022-07-13] MEDS: GABAPENTIN 300 MG CAP PO SCH ×3 (08:31→20:36)
[2022-07-13] MEDS: BUMETANIDE 1 MG TAB PO SCH ×2 (08:31→16:12)
[2022-07-13] MEDS: QUEtiapine FUMARATE 25 MG TAB PO SCH ×2 (08:32→20:37)
[2022-07-13] MEDS: OMEPRAZOLE 20MG CAP PO SCH (08:32)
[2022-07-13] MEDS: LOSARTAN 50MG TABLET PO SCH (08:33)
[2022-07-13] MEDS: RIVAROXABAN 10MG TAB (XARELTO) PO SCH (17:13)
[2022-07-13 20:00] VITALS: BP 120/64
[2022-07-13] MEDS ORDERED: POTASSIUM CHLORIDE 10% LIQ 20MEQ/15ML UDC PO SCH (21:00)
[2022-07-14] VITALS: BP 105/64
[2022-07-14] MEDS: tiZANidine 4 MG TAB PO PRN ×2 (00:31→14:40)
[2022-07-14] MEDS: MORPHINE 30 MG TAB **MSIR PO PRN ×5 (02:30→22:33)
[2022-07-14] MEDS: IPRATROPIUM 0.5MG/ALBUTEROL 2.5MG INH SOL UD 3ML (DUONEB) NEB SCH ×4 (02:44→20:03)
[2022-07-14 04:00] VITALS: BP 106/62
[2022-07-14 04:29] LABS: BASO # 0.2 10^3/uL (0.0-0.2); BASO % 1.3 % (0.0-1.0); EOS # 0.3 10^3/uL (0.0-0.5); EOS % 2.5 % (0.0-3.0); HEMATOCRIT 47.7 % (36.0-47.0); HEMOGLOBIN 14.7 g/dl (12.0-15.5); LYMPH # 3.3 10^3/uL (1.5-5.0); LYMPH % 27.7 % (24.0-44.0); MEAN CORPUSCULAR HEMOGLOBIN 26.7 pg (27.0-33.0); MEAN CORPUSCULAR HGB CONC 30.8 g/dl (32.0-36.5); MEAN CORPUSCULAR VOLUME 86.7 fl (80.0-96.0); MONO # 1.1 10^3/uL (0.0-0.8); MONO % 8.8 % (2.0-8.0); NEUTROPHILS % 58.5 % (36.0-66.0); PLATELET COUNT, AUTOMATED 192 10^3/uL (150-450)
[2022-07-14 04:57] LABS: ALBUMIN 3.6 G/DL (3.2-5.2); BILIRUBIN,TOTAL 0.5 MG/DL (0.3-1.2); CREATININE FOR GFR 1.83 MG/DL (0.55-1.30); GLOMERULAR FILTRATION RATE 29.6 (>45); POTASSIUM SERUM 4.5 MMOL/L (3.5-5.1); TOTAL PROTEIN 7.3 G/DL (5.7-8.2)
[2022-07-14] MEDS: LEVOTHYROXINE 150MCG TABLET (0.15MG) PO SCH (06:13)
[2022-07-14 07:58] VITALS: BP 110/64
[2022-07-14] MEDS: GABAPENTIN 300 MG CAP PO SCH ×3 (08:56→20:30)
[2022-07-14] MEDS: QUEtiapine FUMARATE 25 MG TAB PO SCH ×2 (08:56→20:30)
[2022-07-14] MEDS: OMEPRAZOLE 20MG CAP PO SCH (08:56)
[2022-07-14 13:53] VITALS: BP 105/68
[2022-07-14] MEDS: RIVAROXABAN 10MG TAB (XARELTO) PO SCH (18:32)
[2022-07-15] MEDS: IPRATROPIUM 0.5MG/ALBUTEROL 2.5MG INH SOL UD 3ML (DUONEB) NEB SCH ×4 (01:36→19:30)
[2022-07-15] MEDS: MORPHINE 30 MG TAB **MSIR PO PRN ×6 (03:41→23:27)
[2022-07-15] MEDS: LEVOTHYROXINE 150MCG TABLET (0.15MG) PO SCH (05:33)
[2022-07-15 06:00] VITALS: BP 109/69
[2022-07-15 06:44] LABS: BASO # 0.1 10^3/uL (0.0-0.2); BASO % 1.3 % (0.0-1.0); EOS # 0.6 10^3/uL (0.0-0.5); EOS % 7.1 % (0.0-3.0); HEMATOCRIT 44.2 % (36.0-47.0); HEMOGLOBIN 13.8 g/dl (12.0-15.5); LYMPH # 2.5 10^3/uL (1.5-5.0); LYMPH % 27.7 % (24.0-44.0); MEAN CORPUSCULAR HEMOGLOBIN 27.2 pg (27.0-33.0); MEAN CORPUSCULAR HGB CONC 31.2 g/dl (32.0-36.5); MONO # 0.9 10^3/uL (0.0-0.8); MONO % 9.8 % (2.0-8.0); NEUTROPHILS # 4.8 10^3/uL (1.5-8.5); NEUTROPHILS % 53.3 % (36.0-66.0); PLATELET COUNT, AUTOMATED 200 10^3/uL (150-450); RED BLOOD COUNT 5.08 10^6/uL (4.00-5.40)
[2022-07-15 07:09] LABS: ALBUMIN 3.4 G/DL (3.2-5.2); BILIRUBIN,TOTAL 0.5 MG/DL (0.3-1.2); CALCIUM LEVEL 7.9 MG/DL (8.3-10.6); CREATININE FOR GFR 2.11 MG/DL (0.55-1.30); GLOMERULAR FILTRATION RATE 25.1 (>45); POTASSIUM SERUM 4.1 MMOL/L (3.5-5.1)
[2022-07-15] MEDS: QUEtiapine FUMARATE 25 MG TAB PO SCH ×2 (08:16→20:22)
[2022-07-15] MEDS: OMEPRAZOLE 20MG CAP PO SCH (08:16)
[2022-07-15] MEDS: GABAPENTIN 300 MG CAP PO SCH ×3 (08:16→20:22)
[2022-07-15] MEDS: NS 1,000 ML IV SCH ×2 (10:02→17:59)
[2022-07-15 15:33] LABS: CALCIUM LEVEL 7.7 MG/DL (8.3-10.6); CREATININE FOR GFR 1.83 MG/DL (0.55-1.30); GLOMERULAR FILTRATION RATE 29.6 (>45); POTASSIUM SERUM 4.3 MMOL/L (3.5-5.1)
[2022-07-15] MEDS: RIVAROXABAN 10MG TAB (XARELTO) PO SCH (17:59)
[2022-07-16] MEDS: IPRATROPIUM 0.5MG/ALBUTEROL 2.5MG INH SOL UD 3ML (DUONEB) NEB SCH ×4 (01:13→19:06)
[2022-07-16] MEDS: MORPHINE 30 MG TAB **MSIR PO PRN ×3 (05:06→21:04)
[2022-07-16] MEDS: LEVOTHYROXINE 150MCG TABLET (0.15MG) PO SCH (05:38)
[2022-07-16 06:00] VITALS: BP 113/72
[2022-07-16 06:10] LABS: BASO # 0.1 10^3/uL (0.0-0.2); BASO % 1.3 % (0.0-1.0); EOS # 0.4 10^3/uL (0.0-0.5); LYMPH % 28.4 % (24.0-44.0); MEAN CORPUSCULAR HEMOGLOBIN 27.2 pg (27.0-33.0); MEAN CORPUSCULAR VOLUME 87.9 fl (80.0-96.0); MONO # 0.8 10^3/uL (0.0-0.8); MONO % 11.1 % (2.0-8.0); NEUTROPHILS # 3.8 10^3/uL (1.5-8.5); NEUTROPHILS % 52.6 % (36.0-66.0); PLATELET COUNT, AUTOMATED 174 10^3/uL (150-450); RED BLOOD COUNT 4.78 10^6/uL (4.00-5.40); WHITE BLOOD COUNT 7.1 10^3/uL (4.0-10.0)
[2022-07-16 06:43] LABS: ALBUMIN 3.4 G/DL (3.2-5.2); BILIRUBIN,TOTAL 0.2 MG/DL (0.3-1.2); CREATININE FOR GFR 1.39 MG/DL (0.55-1.30); GLOMERULAR FILTRATION RATE 40.6 (>45); POTASSIUM SERUM 4.4 MMOL/L (3.5-5.1); TOTAL PROTEIN 7.1 G/DL (5.7-8.2)
[2022-07-16] MEDS: NITROGLYCERIN 0.4MG SUBL TABLET SL PRN ×3 (06:50→07:04)
[2022-07-16] MEDS: GABAPENTIN 300 MG CAP PO SCH ×3 (09:04→21:02)
[2022-07-16] MEDS: OMEPRAZOLE 20MG CAP PO SCH (09:04)
[2022-07-16] MEDS: QUEtiapine FUMARATE 25 MG TAB PO SCH ×2 (09:04→21:02)
[2022-07-16] MEDS: ATORVASTATIN 20 MG TAB PO SCH (10:46)
[2022-07-16] MEDS: ASPIRIN 325 MG TAB PO SCH (10:46)
[2022-07-16 11:19] LABS: APPEARANCE, URINE CLEAR (CLEAR); BACTERIA, URINE AUTO 1+ (NEGATIVE); BILIRUBIN, URINE AUTO NEGATIVE (NEGATIVE); BLOOD, URINE BLOOD NEGATIVE (NEGATIVE); COLOR, URINE YELLOW (YELLOW); GLUCOSE, URINE (UA) AUTO NEGATIVE (NEGATIVE); KETONE, URINE AUTO NEGATIVE (NEGATIVE); LEUKOCYTE ESTERASE, URINE AUTO 2+ (NEGATIVE); NITRITE, URINE AUTO NEGATIVE (NEGATIVE); PROTEIN, URINE AUTO NEGATIVE (NEGATIVE); RBC, URINE AUTO 0 /HPF (0-3); SPECIFIC GRAVITY URINE AUTO 1.008 (1.002-1.035); SQUAMOUS EPITHELIAL CELL UR AU 2 /HPF (0-6); UROBILINOGEN, URINE AUTO 0.2 mg/dL (0.0-2.0); WBC, URINE AUTO 11 /HPF (0-3)
[2022-07-16 11:33] LABS: CHOLESTEROL RISK RATIO 3.92 (<5); CK-MB VALUE MASS 1.6 NG/ML (<3.6); HDL CHOLESTEROL 32.1 MG/DL (>40); LDL CHOLESTEROL 66.5 MG/DL (<100); MB/CK RELATIVE INDEX 1.83 (< OR =4)
[2022-07-16 11:47] LABS: HEMOGLOBIN A1c 5.8 % (4.0-6.0)
[2022-07-16 14:00] VITALS: BP 115/70
[2022-07-16] MEDS: RIVAROXABAN 10MG TAB (XARELTO) PO SCH (17:17)
[2022-07-16 20:28] LABS: THYROID STIMULATING HORMONE 8.672 uIU/ML (0.55-4.78)
[2022-07-16] MEDS: DOCUSATE SODIUM 100MG CAPSULE PO SCH (21:02)
[2022-07-16] MEDS: CEFDINIR 300 MG CAP (OMNICEF) PO SCH (21:02)
[2022-07-16 22:00] VITALS: BP 114/71
[2022-07-17] MEDS: IPRATROPIUM 0.5MG/ALBUTEROL 2.5MG INH SOL UD 3ML (DUONEB) NEB SCH ×3 (01:31→14:52)
[2022-07-17] MEDS: LEVOTHYROXINE 150MCG TABLET (0.15MG) PO SCH (05:30)
[2022-07-17 06:00] VITALS: BP 116/74
[2022-07-17 06:22] LABS: BASO # 0.1 10^3/uL (0.0-0.2); BASO % 1.3 % (0.0-1.0); EOS # 0.6 10^3/uL (0.0-0.5); EOS % 9.3 % (0.0-3.0); HEMATOCRIT 40.7 % (36.0-47.0); HEMOGLOBIN 12.6 g/dl (12.0-15.5); LYMPH # 1.8 10^3/uL (1.5-5.0); LYMPH % 30.2 % (24.0-44.0); MEAN CORPUSCULAR HEMOGLOBIN 27.3 pg (27.0-33.0); MEAN CORPUSCULAR VOLUME 88.1 fl (80.0-96.0); MONO # 0.7 10^3/uL (0.0-0.8); MONO % 12.3 % (2.0-8.0); NEUTROPHILS # 2.8 10^3/uL (1.5-8.5); NEUTROPHILS % 46.6 % (36.0-66.0); PLATELET COUNT, AUTOMATED 169 10^3/uL (150-450); RED BLOOD COUNT 4.62 10^6/uL (4.00-5.40)
[2022-07-17 06:46] LABS: ALBUMIN 3.3 G/DL (3.2-5.2); BILIRUBIN,TOTAL 0.3 MG/DL (0.3-1.2); CALCIUM LEVEL 8.3 MG/DL (8.3-10.6); CREATININE FOR GFR 1.13 MG/DL (0.55-1.30); GLOMERULAR FILTRATION RATE 51.6 (>45); POTASSIUM SERUM 4.1 MMOL/L (3.5-5.1); TOTAL PROTEIN 6.9 G/DL (5.7-8.2)
[2022-07-17] MEDS: OMEPRAZOLE 20MG CAP PO SCH (08:23)
[2022-07-17] MEDS: GABAPENTIN 300 MG CAP PO SCH (08:24)
[2022-07-17] MEDS: CEFDINIR 300 MG CAP (OMNICEF) PO SCH (08:24)
[2022-07-17 08:29] VITALS: BP 118/73
[2022-07-17] MEDS: ATORVASTATIN 20 MG TAB PO SCH (08:30)
[2022-07-17] MEDS: QUEtiapine FUMARATE 25 MG TAB PO SCH (08:30)
[2022-07-17] MEDS: MORPHINE 30 MG TAB **MSIR PO PRN (08:33)
[2022-07-17] MEDS: ASPIRIN 325 MG TAB PO SCH (08:33)
[2022-07-17] MEDS: DOCUSATE SODIUM 100MG CAPSULE PO SCH (08:33)
[2022-07-17] MEDS ORDERED: MIRALAX *UNIT DOSE* 17GM PACKET PO SCH (09:00)
[2022-07-17] MEDS ORDERED: ASPI-1 PO (10:44)
[2022-07-17] MEDS ORDERED: COLA100C5 PO (10:44)
[2022-07-17] MEDS ORDERED: ATOR1TAB21 PO (10:44)
[2022-07-17] MEDS ORDERED: AMLO1TAB25 PO (10:44)
[2022-07-17] MEDS ORDERED: CEFD300CAP PO (10:45)
[2022-07-17] MEDS ORDERED: ASPI81CH33 PO (10:47)
[2022-07-18] MEDS ORDERED: AMLO1TAB25 PO (16:12)
[2022-07-18] MEDS ORDERED: ATOR40TA75 PO (16:12)
[2022-07-18] MEDS ORDERED: CEFD300C41 PO (16:12)
[2022-07-18] MEDS ORDERED: MM S100C PO (16:12)
[2022-07-18] MEDS ORDERED: FLUT1INH3 PO (16:12)
[2022-07-18] MEDS ORDERED: ACE65ERTAB PO (16:12)
[2022-07-18] MEDS ORDERED: ASPI81CH33 PO (16:12)
== END 2022-07-17 15:26 | disposition home or self-care (01) | DRG 194 ==
LOC: M ED 11:19 → M ED INP 16:39 → M PCU 20:04 → M MSPAV 07-14 13:58
PROVIDERS: ADMIT Internal Medicine; ATTEND Internal Medicine
PROC: B246ZZZ Ultrasonography of Right and Left Heart (ICD-10-PCS; principal; 2022-07-12)
DX: J81.1 Chronic pulmonary edema (principal); N17.9 Acute kidney failure, unspecified; I50.23 Acute on chronic systolic (congestive) heart failure; E78.5 Hyperlipidemia, unspecified; N18.30 Chronic kidney disease, stage 3 unspecified; I13.0 Hypertensive heart and chronic kidney disease with heart failure and stage 1 through stage 4 chronic kidney disease, or unspecified chronic kidney disease; K76.0 Fatty (change of) liver, not elsewhere classified; F25.9 Schizoaffective disorder, unspecified; J44.9 Chronic obstructive pulmonary disease, unspecified; M54.9 Dorsalgia, unspecified; R30.0 Dysuria; G89.29 Other chronic pain; K58.0 Irritable bowel syndrome with diarrhea; R07.89 Other chest pain; E03.9 Hypothyroidism, unspecified; F11.23 Opioid dependence with withdrawal; K21.9 Gastro-esophageal reflux disease without esophagitis; Z91.14 Patient's other noncompliance with medication regimen; I16.0 Hypertensive urgency; R00.1 Bradycardia, unspecified; R74.01 Elevation of levels of liver transaminase levels; Z79.890 Hormone replacement therapy; Z79.899 Other long term (current) drug therapy; Z88.1 Allergy status to other antibiotic agents; Z88.8 Allergy status to other drugs, medicaments and biological substances; Z20.822 Contact with and (suspected) exposure to COVID-19

== ENCOUNTER 2022-07-18 10:46 | Observation (INO) | payer OTHER ==
[~2022-07-18] VITALS: Ht 152.4 cm; Wt 108.0 kg
[~2022-07-18 10:46] MED LIST changes: +ACE65ERTAB; +AMLO1TAB25 PO; +ASPI-1 PO; +ASPI81CH33 PO; +ATOR1TAB21 PO; +CEFD300CAP PO; +CELE1CAP9 PO; +FURO40TA2 PO; +GABA600T4 PO; +LANS15CA PO; +LORA2TAB14; +LORA2TAB14 PO; +OXYC30TA PO; +PATIENT COMMENT; +QUET1TAB17; +TIZA1TAB12 PO; +UNRESOLVED CLARIFICATION ENTRY XX SCH
[2022-07-18 12:01] LABS: BASO # 0.1 10^3/uL (0.0-0.2); BASO % 1.6 % (0.0-1.0); EOS # 0.6 10^3/uL (0.0-0.5); EOS % 8.7 % (0.0-3.0); HEMATOCRIT 43.9 % (36.0-47.0); HEMOGLOBIN 13.6 g/dl (12.0-15.5); LYMPH # 1.9 10^3/uL (1.5-5.0); LYMPH % 29.6 % (24.0-44.0); MEAN CORPUSCULAR HEMOGLOBIN 27.1 pg (27.0-33.0); MEAN CORPUSCULAR VOLUME 87.5 fl (80.0-96.0); MONO # 0.8 10^3/uL (0.0-0.8); MONO % 12.8 % (2.0-8.0); PLATELET COUNT, AUTOMATED 216 10^3/uL (150-450); RED BLOOD COUNT 5.02 10^6/uL (4.00-5.40); WHITE BLOOD COUNT 6.4 10^3/uL (4.0-10.0)
[2022-07-18 12:25] LABS: ETHYL ALCOHOL (ETHANOL) < 0.003 % (0.000-0.010)
[2022-07-18 12:27] LABS: ACETAMINOPHEN LEVEL < 2.0 UG/ML (10.0-20.0); SALICYLATE LEVEL < 3.0 MG/DL (<30)
[2022-07-18 12:31] LABS: OSMOLALITY SERUM 295 MOSM/KG (280-301)
[2022-07-18 12:32] LABS: ALBUMIN 4.1 G/DL (3.2-5.2); ALKALINE PHOSPHATASE 183 U/L (46-116); ALT/SGPT 37 U/L (7.0-40); AST/SGOT 27 U/L (<34); BILIRUBIN,DIRECT 0.2 MG/DL (<0.4); BILIRUBIN,TOTAL 0.6 MG/DL (0.3-1.2); BLOOD UREA NITROGEN 20 MG/DL (9-23); CALCIUM LEVEL 8.6 MG/DL (8.3-10.6); CARBON DIOXIDE LEVEL 24 MMOL/L (20-31); CHLORIDE LEVEL 104 MMOL/L (98-107); CK-MB VALUE MASS 2.8 NG/ML (<3.6); CPK CREATINE PHOSPHOKINASE 160 U/L (34-145); CREATININE FOR GFR 1.27 MG/DL (0.55-1.30); GLOMERULAR FILTRATION RATE 45.1 (>45); GLUCOSE, FASTING 93 MG/DL (74-106); MB/CK RELATIVE INDEX 1.75 (< OR =4); POTASSIUM SERUM 4.5 MMOL/L (3.5-5.1); SODIUM LEVEL 136 MMOL/L (136-145); THYROID STIMULATING HORMONE 7.434 uIU/ML (0.55-4.78); TOTAL PROTEIN 8.2 G/DL (5.7-8.2)
[2022-07-18] MEDS ORDERED: ACE65ERTAB PO (16:12)
[2022-07-18] MEDS ORDERED: MM S100C PO (16:12)
[2022-07-18] MEDS ORDERED: ATOR40TA75 PO (16:12)
[2022-07-18] MEDS ORDERED: ASPI81CH33 PO (16:12)
[2022-07-18] MEDS ORDERED: AMLO1TAB25 PO (16:12)
[2022-07-18] MEDS ORDERED: CEFD300C41 PO (16:12)
[2022-07-18] MEDS ORDERED: FLUT1INH3 PO (16:12)
[2022-07-18] MEDS ORDERED: HOME MED LIST COMPLETE! XX SCH ×2 (16:15→16:50)
[2022-07-18] MEDS ORDERED: ALBUTEROL 90 MCG/ACT 8GM HFA INHALER INH PRN (16:55)
[2022-07-18 17:08] LABS: RSV AMPLIFICATION NEGATIVE (NEGATIVE)
[2022-07-18] MEDS ORDERED: MIRALAX *UNIT DOSE* 17GM PACKET PO PRN (17:55)
[2022-07-18] MEDS: ADVAIR HFA 230/21MCG INHALER INH SCH (19:52)
[2022-07-18 20:56] VITALS: BP 155/77
[2022-07-18] MEDS ORDERED: DOCUSATE SODIUM 100MG CAPSULE PO SCH (21:00)
[2022-07-18] MEDS: GABAPENTIN 300 MG CAP PO SCH (21:10)
[2022-07-18] MEDS: SENOKOT S TAB PO SCH (21:10)
[2022-07-18] MEDS: QUEtiapine FUMARATE 25 MG TAB PO SCH (21:10)
[2022-07-18] MEDS: CEFDINIR 300 MG CAP (OMNICEF) PO SCH (21:10)
[2022-07-18] MEDS: ACETAMINOPHEN 650MG ER TAB (TYLENOL ARTHRITIS) PO SCH (21:10)
[2022-07-18] MEDS: HEPARIN SOD (PORCINE) 5000UNITS/ML 1ML VIAL/SYRINGE SC SCH (21:10)
[2022-07-18] MEDS: oxyCODONE 5MG TAB PO PRN (21:11)
[2022-07-19] MEDS: ACETAMINOPHEN 650MG ER TAB (TYLENOL ARTHRITIS) PO SCH ×3 (05:19→21:44)
[2022-07-19] MEDS: LEVOTHYROXINE 150MCG TABLET (0.15MG) PO SCH (05:19)
[2022-07-19] MEDS: oxyCODONE 5MG TAB PO PRN ×3 (05:20→20:08)
[2022-07-19] MEDS: HEPARIN SOD (PORCINE) 5000UNITS/ML 1ML VIAL/SYRINGE SC SCH ×3 (05:20→21:43)
[2022-07-19 05:26] VITALS: BP 153/79
[2022-07-19 06:14] LABS: HEMATOCRIT 40.3 % (36.0-47.0); HEMOGLOBIN 12.4 g/dl (12.0-15.5); MEAN CORPUSCULAR HGB CONC 30.8 g/dl (32.0-36.5); MEAN CORPUSCULAR VOLUME 87.8 fl (80.0-96.0); PLATELET COUNT, AUTOMATED 193 10^3/uL (150-450); RED BLOOD COUNT 4.59 10^6/uL (4.00-5.40); WHITE BLOOD COUNT 5.6 10^3/uL (4.0-10.0)
[2022-07-19 07:09] LABS: ALBUMIN 3.3 G/DL (3.2-5.2); BILIRUBIN,TOTAL 0.4 MG/DL (0.3-1.2); CALCIUM LEVEL 8.1 MG/DL (8.3-10.6); CREATININE FOR GFR 1.06 MG/DL (0.55-1.30); GLOMERULAR FILTRATION RATE 55.6 (>45); MAGNESIUM LEVEL 2.1 MG/DL (1.8-2.4); POTASSIUM SERUM 3.9 MMOL/L (3.5-5.1); THYROID STIMULATING HORMONE 4.947 uIU/ML (0.55-4.78); TOTAL PROTEIN 6.7 G/DL (5.7-8.2)
[2022-07-19] MEDS: ADVAIR HFA 230/21MCG INHALER INH SCH ×2 (07:25→19:36)
[2022-07-19] MEDS ORDERED: OMEPRAZOLE 20MG CAP PO SCH (09:00)
[2022-07-19] MEDS: MOM 30ML SUSPENSION UDC PO SCH (09:12)
[2022-07-19] MEDS: GABAPENTIN 300 MG CAP PO SCH ×3 (09:13→20:07)
[2022-07-19] MEDS: ATORVASTATIN 20 MG TAB PO SCH (09:13)
[2022-07-19] MEDS: SENOKOT S TAB PO SCH ×2 (09:13→20:07)
[2022-07-19] MEDS: ASPIRIN 81MG CHEW TABLET PO SCH (09:13)
[2022-07-19] MEDS: QUEtiapine FUMARATE 25 MG TAB PO SCH ×2 (09:13→20:06)
[2022-07-19] MEDS: CEFDINIR 300 MG CAP (OMNICEF) PO SCH ×2 (09:13→20:06)
[2022-07-19] MEDS: PANTOPRAZOLE 40MG TAB (PROTONIX) PO SCH (09:13)
[2022-07-19] MEDS: LORazepam 2 MG TAB PO PRN (09:18)
[2022-07-19] MEDS: FUROSEMIDE 40 MG TAB PO SCH (11:47)
[2022-07-19 14:00] VITALS: BP 133/79
[2022-07-20] MEDS: LORazepam 2 MG TAB PO PRN ×2 (00:57→15:44)
[2022-07-20] MEDS: oxyCODONE 5MG TAB PO PRN ×4 (01:28→20:19)
[2022-07-20] MEDS: ACETAMINOPHEN 650MG ER TAB (TYLENOL ARTHRITIS) PO SCH ×3 (05:47→21:53)
[2022-07-20] MEDS: LEVOTHYROXINE 150MCG TABLET (0.15MG) PO SCH (05:47)
[2022-07-20] MEDS: HEPARIN SOD (PORCINE) 5000UNITS/ML 1ML VIAL/SYRINGE SC SCH ×3 (05:48→21:53)
[2022-07-20 06:00] VITALS: BP 131/78
[2022-07-20 06:08] LABS: HEMATOCRIT 38.7 % (36.0-47.0); HEMOGLOBIN 12.2 g/dl (12.0-15.5); MEAN CORPUSCULAR HEMOGLOBIN 27.4 pg (27.0-33.0); MEAN CORPUSCULAR HGB CONC 31.5 g/dl (32.0-36.5); PLATELET COUNT, AUTOMATED 196 10^3/uL (150-450); RED BLOOD COUNT 4.45 10^6/uL (4.00-5.40); WHITE BLOOD COUNT 5.1 10^3/uL (4.0-10.0)
[2022-07-20 06:39] LABS: ALBUMIN 3.4 G/DL (3.2-5.2); BILIRUBIN,TOTAL 0.3 MG/DL (0.3-1.2); CALCIUM LEVEL 8.2 MG/DL (8.3-10.6); CREATININE FOR GFR 1.05 MG/DL (0.55-1.30); GLOMERULAR FILTRATION RATE 56.2 (>45); MAGNESIUM LEVEL 1.9 MG/DL (1.8-2.4); POTASSIUM SERUM 3.9 MMOL/L (3.5-5.1); TOTAL PROTEIN 6.7 G/DL (5.7-8.2)
[2022-07-20] MEDS: ADVAIR HFA 230/21MCG INHALER INH SCH ×2 (07:38→19:17)
[2022-07-20] MEDS: ATORVASTATIN 20 MG TAB PO SCH (08:33)
[2022-07-20] MEDS: CEFDINIR 300 MG CAP (OMNICEF) PO SCH ×2 (08:33→20:19)
[2022-07-20] MEDS: FUROSEMIDE 40 MG TAB PO SCH (08:33)
[2022-07-20] MEDS: SENOKOT S TAB PO SCH ×2 (08:33→20:20)
[2022-07-20] MEDS: MOM 30ML SUSPENSION UDC PO SCH (08:33)
[2022-07-20] MEDS: ASPIRIN 81MG CHEW TABLET PO SCH (08:33)
[2022-07-20] MEDS: QUEtiapine FUMARATE 25 MG TAB PO SCH ×2 (08:34→20:19)
[2022-07-20] MEDS: GABAPENTIN 300 MG CAP PO SCH ×3 (08:34→20:19)
[2022-07-20] MEDS: POTASSIUM CHLORIDE 10MEQ SR TABLET PO SCH (08:34)
[2022-07-20] MEDS: PANTOPRAZOLE 40MG TAB (PROTONIX) PO SCH (08:35)
[2022-07-20] MEDS: RAMELTEON 8 MG TAB (ROZEREM) PO PRN (23:41)
[2022-07-21] MEDS: LEVOTHYROXINE 150MCG TABLET (0.15MG) PO SCH (05:24)
[2022-07-21] MEDS: HEPARIN SOD (PORCINE) 5000UNITS/ML 1ML VIAL/SYRINGE SC SCH ×3 (05:24→21:03)
[2022-07-21] MEDS: ACETAMINOPHEN 650MG ER TAB (TYLENOL ARTHRITIS) PO SCH ×3 (05:24→21:03)
[2022-07-21 06:00] VITALS: BP 128/65
[2022-07-21 06:18] LABS: HEMATOCRIT 37.9 % (36.0-47.0); HEMOGLOBIN 11.6 g/dl (12.0-15.5); MEAN CORPUSCULAR HEMOGLOBIN 26.8 pg (27.0-33.0); MEAN CORPUSCULAR HGB CONC 30.6 g/dl (32.0-36.5); MEAN CORPUSCULAR VOLUME 87.5 fl (80.0-96.0); PLATELET COUNT, AUTOMATED 191 10^3/uL (150-450); RED BLOOD COUNT 4.33 10^6/uL (4.00-5.40); WHITE BLOOD COUNT 5.3 10^3/uL (4.0-10.0)
[2022-07-21 06:47] LABS: ALBUMIN 3.3 G/DL (3.2-5.2); BILIRUBIN,TOTAL 0.2 MG/DL (0.3-1.2); CALCIUM LEVEL 8.2 MG/DL (8.3-10.6); CREATININE FOR GFR 1.16 MG/DL (0.55-1.30); GLOMERULAR FILTRATION RATE 50.1 (>45); MAGNESIUM LEVEL 1.8 MG/DL (1.8-2.4); POTASSIUM SERUM 3.9 MMOL/L (3.5-5.1); TOTAL PROTEIN 6.6 G/DL (5.7-8.2)
[2022-07-21] MEDS: ADVAIR HFA 230/21MCG INHALER INH SCH ×2 (07:26→20:03)
[2022-07-21] MEDS: PANTOPRAZOLE 40MG TAB (PROTONIX) PO SCH (08:15)
[2022-07-21] MEDS: POTASSIUM CHLORIDE 10MEQ SR TABLET PO SCH (08:15)
[2022-07-21] MEDS: MOM 30ML SUSPENSION UDC PO SCH (08:15)
[2022-07-21] MEDS: QUEtiapine FUMARATE 25 MG TAB PO SCH ×2 (08:16→21:03)
[2022-07-21] MEDS: GABAPENTIN 300 MG CAP PO SCH ×3 (08:16→21:02)
[2022-07-21] MEDS: CEFDINIR 300 MG CAP (OMNICEF) PO SCH ×2 (08:16→21:03)
[2022-07-21] MEDS: ATORVASTATIN 20 MG TAB PO SCH (08:16)
[2022-07-21] MEDS: ASPIRIN 81MG CHEW TABLET PO SCH (08:16)
[2022-07-21] MEDS: SENOKOT S TAB PO SCH ×2 (08:16→21:03)
[2022-07-21] MEDS: FUROSEMIDE 40 MG TAB PO SCH (08:33)
[2022-07-21 08:35] VITALS: BP 104/54
[2022-07-21] MEDS: oxyCODONE 5MG TAB PO PRN ×4 (08:37→23:11)
[2022-07-21 09:26] VITALS: BP 118/60
[2022-07-22] MEDS: LORazepam 2 MG TAB PO PRN ×2 (03:22→16:04)
[2022-07-22] MEDS: LEVOTHYROXINE 150MCG TABLET (0.15MG) PO SCH (05:31)
[2022-07-22] MEDS: ACETAMINOPHEN 650MG ER TAB (TYLENOL ARTHRITIS) PO SCH ×3 (05:31→21:04)
[2022-07-22] MEDS: HEPARIN SOD (PORCINE) 5000UNITS/ML 1ML VIAL/SYRINGE SC SCH ×3 (05:32→21:04)
[2022-07-22 06:00] VITALS: BP 143/73
[2022-07-22 06:28] LABS: HEMATOCRIT 38.5 % (36.0-47.0); HEMOGLOBIN 11.9 g/dl (12.0-15.5); MEAN CORPUSCULAR HEMOGLOBIN 27.2 pg (27.0-33.0); MEAN CORPUSCULAR HGB CONC 30.9 g/dl (32.0-36.5); MEAN CORPUSCULAR VOLUME 88.1 fl (80.0-96.0); PLATELET COUNT, AUTOMATED 189 10^3/uL (150-450); RED BLOOD COUNT 4.37 10^6/uL (4.00-5.40); WHITE BLOOD COUNT 5.8 10^3/uL (4.0-10.0)
[2022-07-22 06:59] LABS: ALBUMIN 3.4 G/DL (3.2-5.2); BILIRUBIN,TOTAL 0.2 MG/DL (0.3-1.2); CALCIUM LEVEL 8.6 MG/DL (8.3-10.6); CREATININE FOR GFR 1.03 MG/DL (0.55-1.30); GLOMERULAR FILTRATION RATE 57.4 (>45); MAGNESIUM LEVEL 2.1 MG/DL (1.8-2.4); POTASSIUM SERUM 4.5 MMOL/L (3.5-5.1); TOTAL PROTEIN 6.8 G/DL (5.7-8.2)
[2022-07-22] MEDS: ADVAIR HFA 230/21MCG INHALER INH SCH ×2 (07:16→19:42)
[2022-07-22] MEDS: SENOKOT S TAB PO SCH ×2 (08:07→21:03)
[2022-07-22] MEDS: ATORVASTATIN 20 MG TAB PO SCH (08:07)
[2022-07-22] MEDS: MOM 30ML SUSPENSION UDC PO SCH (08:07)
[2022-07-22] MEDS: CEFDINIR 300 MG CAP (OMNICEF) PO SCH (08:07)
[2022-07-22] MEDS: oxyCODONE 5MG TAB PO PRN ×2 (08:08→12:47)
[2022-07-22] MEDS: ASPIRIN 81MG CHEW TABLET PO SCH (08:08)
[2022-07-22] MEDS: GABAPENTIN 300 MG CAP PO SCH ×3 (08:08→21:03)
[2022-07-22] MEDS: PANTOPRAZOLE 40MG TAB (PROTONIX) PO SCH (08:09)
[2022-07-22] MEDS: POTASSIUM CHLORIDE 10MEQ SR TABLET PO SCH (08:09)
[2022-07-22] MEDS: QUEtiapine FUMARATE 25 MG TAB PO SCH ×2 (08:09→21:03)
[2022-07-22] MEDS: FUROSEMIDE 40 MG TAB PO SCH (08:09)
[2022-07-22] MEDS: RAMELTEON 8 MG TAB (ROZEREM) PO PRN (21:03)
[2022-07-23] MEDS: oxyCODONE 5MG TAB PO PRN ×4 (01:10→22:11)
[2022-07-23] MEDS: HEPARIN SOD (PORCINE) 5000UNITS/ML 1ML VIAL/SYRINGE SC SCH ×3 (04:59→21:07)
[2022-07-23] MEDS: ACETAMINOPHEN 650MG ER TAB (TYLENOL ARTHRITIS) PO SCH ×3 (05:00→21:06)
[2022-07-23] MEDS: LEVOTHYROXINE 150MCG TABLET (0.15MG) PO SCH (05:00)
[2022-07-23 06:00] VITALS: BP 110/55
[2022-07-23 06:05] LABS: HEMOGLOBIN 12.1 g/dl (12.0-15.5); MEAN CORPUSCULAR VOLUME 87.1 fl (80.0-96.0); PLATELET COUNT, AUTOMATED 212 10^3/uL (150-450); RED BLOOD COUNT 4.48 10^6/uL (4.00-5.40); WHITE BLOOD COUNT 6.2 10^3/uL (4.0-10.0)
[2022-07-23] MEDS: ADVAIR HFA 230/21MCG INHALER INH SCH ×2 (06:11→20:36)
[2022-07-23 06:39] LABS: ALBUMIN 3.6 G/DL (3.2-5.2); BILIRUBIN,TOTAL 0.3 MG/DL (0.3-1.2); CALCIUM LEVEL 8.5 MG/DL (8.3-10.6); CREATININE FOR GFR 1.05 MG/DL (0.55-1.30); GLOMERULAR FILTRATION RATE 56.2 (>45); MAGNESIUM LEVEL 2.2 MG/DL (1.8-2.4); POTASSIUM SERUM 4.5 MMOL/L (3.5-5.1); TOTAL PROTEIN 7.1 G/DL (5.7-8.2)
[2022-07-23] MEDS: SENOKOT S TAB PO SCH ×2 (08:06→21:06)
[2022-07-23] MEDS: PANTOPRAZOLE 40MG TAB (PROTONIX) PO SCH (08:06)
[2022-07-23] MEDS: ATORVASTATIN 20 MG TAB PO SCH (08:06)
[2022-07-23] MEDS: QUEtiapine FUMARATE 25 MG TAB PO SCH ×2 (08:07→21:07)
[2022-07-23] MEDS: ASPIRIN 81MG CHEW TABLET PO SCH (08:07)
[2022-07-23] MEDS: POTASSIUM CHLORIDE 10MEQ SR TABLET PO SCH (08:07)
[2022-07-23] MEDS: GABAPENTIN 300 MG CAP PO SCH ×3 (08:08→21:06)
[2022-07-23] MEDS: MOM 30ML SUSPENSION UDC PO SCH (09:00)
[2022-07-23] MEDS: FUROSEMIDE 40 MG TAB PO SCH (09:00)
[2022-07-23] MEDS: LORazepam 2 MG TAB PO PRN ×2 (13:30→23:46)
[2022-07-23] MEDS: RAMELTEON 8 MG TAB (ROZEREM) PO PRN (21:06)
[2022-07-24] MEDS: HEPARIN SOD (PORCINE) 5000UNITS/ML 1ML VIAL/SYRINGE SC SCH ×2 (05:49→13:16)
[2022-07-24] MEDS: ACETAMINOPHEN 650MG ER TAB (TYLENOL ARTHRITIS) PO SCH ×2 (05:49→13:16)
[2022-07-24] MEDS: oxyCODONE 5MG TAB PO PRN ×2 (05:49→13:22)
[2022-07-24] MEDS: LEVOTHYROXINE 150MCG TABLET (0.15MG) PO SCH (05:49)
[2022-07-24 06:06] VITALS: BP 107/33
[2022-07-24] MEDS: ADVAIR HFA 230/21MCG INHALER INH SCH (07:50)
[2022-07-24] MEDS: MOM 30ML SUSPENSION UDC PO SCH (07:57)
[2022-07-24] MEDS: ASPIRIN 81MG CHEW TABLET PO SCH (07:57)
[2022-07-24] MEDS: ATORVASTATIN 20 MG TAB PO SCH (07:57)
[2022-07-24] MEDS: PANTOPRAZOLE 40MG TAB (PROTONIX) PO SCH (07:58)
[2022-07-24] MEDS: GABAPENTIN 300 MG CAP PO SCH ×2 (07:58→15:33)
[2022-07-24] MEDS: SENOKOT S TAB PO SCH (07:58)
[2022-07-24] MEDS: POTASSIUM CHLORIDE 10MEQ SR TABLET PO SCH (07:58)
[2022-07-24 07:59] VITALS: BP 120/57
[2022-07-24] MEDS: QUEtiapine FUMARATE 25 MG TAB PO SCH (07:59)
[2022-07-24] MEDS: FUROSEMIDE 40 MG TAB PO SCH (07:59)
[2022-07-24] MEDS: LORazepam 2 MG TAB PO PRN (09:57)
[2022-07-24] MEDS ORDERED: METO25TA PO (10:58)
[2022-07-24] MEDS ORDERED: PRED20TA PO (10:58)
[2022-07-24] MEDS ORDERED: IPRA0.00 INH (10:58)
[2022-07-24] MEDS ORDERED: MIRA3350 PO (10:58)
[2022-07-24] MEDS ORDERED: AZIT-12 PO (10:58)
[2022-07-24] MEDS ORDERED: LASI20TA3 PO (10:58)
[2022-07-24] MEDS ORDERED: LORA2TAB14 PO (13:53)
== END 2022-07-24 16:40 | disposition home health service (06) ==
LOC: EDBD 10:46 → M ED 10:46 → INTOOBSV 15:50 → M ED INP 15:50 → M MSPAV 20:56
PROVIDERS: ADMIT Internal Medicine; ATTEND Internal Medicine
DX: R53.81 Other malaise (principal); Z74.2 Need for assistance at home and no other household member able to render care; R94.6 Abnormal results of thyroid function studies; R10.9 Unspecified abdominal pain; N39.0 Urinary tract infection, site not specified; I50.9 Heart failure, unspecified; I11.0 Hypertensive heart disease with heart failure; E78.5 Hyperlipidemia, unspecified; J44.9 Chronic obstructive pulmonary disease, unspecified; M54.9 Dorsalgia, unspecified; G89.29 Other chronic pain; F25.9 Schizoaffective disorder, unspecified; F41.9 Anxiety disorder, unspecified; K21.9 Gastro-esophageal reflux disease without esophagitis; R60.0 Localized edema; E03.9 Hypothyroidism, unspecified; K58.0 Irritable bowel syndrome with diarrhea; Z88.1 Allergy status to other antibiotic agents; Z88.8 Allergy status to other drugs, medicaments and biological substances; Z88.5 Allergy status to narcotic agent; Z91.138 Patient's unintentional underdosing of medication regimen for other reason; Z79.899 Other long term (current) drug therapy; Z79.82 Long term (current) use of aspirin; Z79.890 Hormone replacement therapy; Z79.52 Long term (current) use of systemic steroids
CPT/HCPCS: 36415; 74018; 80048; 80053; 80076; 80143; 82077; 82140; 82550; 82553; 83605; 83735; 83930; 84439; 84443; 85025; 85027; 87631; 93005; 93041; 94640; 94760; 96372; 97161; 97165; 97530; 97535; 99285; J1644

== ENCOUNTER 2022-08-05 11:59 | Emergency (ER) | payer OTHER ==
[~2022-08-05] VITALS: Ht 160 cm; Wt 107.7 kg
[~2022-08-05 11:59] MED LIST changes: +ACE65ERTAB PO; +ATOR40TA75 PO; +AZIT-12 PO; +FLUT1INH3 PO; +LASI20TA3 PO; +METO25TA PO; +MM S100C PO; -UNRESOLVED CLARIFICATION ENTRY XX SCH
[2022-08-05] MEDS ORDERED: MORPHINE 2 MG/ML 1ML VIAL IV ONE (16:40)
[2022-08-05] MEDS ORDERED: ONDANSETRON 4MG 2ML VIAL IV ONE (16:40)
[2022-08-05 17:31] LABS: BASO # 0.1 10^3/uL (0.0-0.2); BASO % 0.7 % (0.0-1.0); EOS # 0.2 10^3/uL (0.0-0.5); EOS % 2.2 % (0.0-3.0); HEMATOCRIT 44.4 % (36.0-47.0); HEMOGLOBIN 13.6 g/dl (12.0-15.5); LYMPH # 2.6 10^3/uL (1.5-5.0); LYMPH % 32.3 % (24.0-44.0); MEAN CORPUSCULAR HEMOGLOBIN 27.2 pg (27.0-33.0); MEAN CORPUSCULAR HGB CONC 30.6 g/dl (32.0-36.5); MEAN CORPUSCULAR VOLUME 88.8 fl (80.0-96.0); MONO # 0.7 10^3/uL (0.0-0.8); MONO % 8.6 % (2.0-8.0); NEUTROPHILS # 4.6 10^3/uL (1.5-8.5); PLATELET COUNT, AUTOMATED 192 10^3/uL (150-450); WHITE BLOOD COUNT 8.2 10^3/uL (4.0-10.0)
[2022-08-05] MEDS ORDERED: IPRATROPIUM 0.5MG/ALBUTEROL 2.5MG INH SOL UD 3ML (DUONEB) NEB ONE (17:45)
[2022-08-05 17:46] LABS: CK-MB VALUE MASS 1.1 NG/ML (<3.6); ETHYL ALCOHOL (ETHANOL) < 0.003 % (0.000-0.010); LIPASE 41 U/L (12-53)
[2022-08-05 17:48] LABS: ACETAMINOPHEN LEVEL < 2.0 UG/ML (10.0-20.0); ALKALINE PHOSPHATASE 154 U/L (46-116); ALT/SGPT 28 U/L (7.0-40); AST/SGOT 20 U/L (<34); BILIRUBIN,DIRECT < 0.1 MG/DL (<0.4); BILIRUBIN,TOTAL 0.2 MG/DL (0.3-1.2); BLOOD UREA NITROGEN 21 MG/DL (9-23); CALCIUM LEVEL 8.4 MG/DL (8.3-10.6); CARBON DIOXIDE LEVEL 32 MMOL/L (20-31); CHLORIDE LEVEL 102 MMOL/L (98-107); CREATININE FOR GFR 1.07 MG/DL (0.55-1.30); GLUCOSE, FASTING 83 MG/DL (74-106); POTASSIUM SERUM 3.8 MMOL/L (3.5-5.1); SALICYLATE LEVEL < 3.0 MG/DL (<30); SODIUM LEVEL 141 MMOL/L (136-145); TOTAL PROTEIN 7.9 G/DL (5.7-8.2)
[2022-08-05 17:49] LABS: AMYLASE 42 U/L (30-118)
[2022-08-05 17:50] LABS: THYROID STIMULATING HORMONE 5.233 uIU/ML (0.55-4.78)
[2022-08-05 17:51] LABS: AMPHETAMINES LEVEL URINE NEGATIVE (NEGATIVE); BARBITURATES URINE NEGATIVE (NEGATIVE); BENZODIAZEPINES URINE NEGATIVE (NEGATIVE); CANNABINOIDS URINE NEGATIVE (NEGATIVE); COCAINE METABOLITE URINE NEGATIVE (NEGATIVE); METHADONE URINE NEGATIVE (NEGATIVE); PHENCYCLIDINE URINE NEGATIVE (NEGATIVE)
[2022-08-05 17:52] LABS: OSMOLALITY SERUM 297 MOSM/KG (280-301)
[2022-08-05 17:54] LABS: CPK CREATINE PHOSPHOKINASE 62 U/L (34-145); MB/CK RELATIVE INDEX 1.77 (< OR =4)
[2022-08-05 17:54] LABS: OPIATES URINE POSITIVE (NEGATIVE)
[2022-08-05 17:56] LABS: INR 0.95; PROTHROMBIN TIME 12.9 SECONDS (12.5-14.5)
[2022-08-05 17:57] LABS: PARTIAL THROMBOPLASTIN TIME 23.9 SECONDS (24.8-34.2)
[2022-08-05 18:04] LABS: RSV AMPLIFICATION NEGATIVE (NEGATIVE)
[2022-08-05] MEDS ORDERED: diazePAM 10MG/2ML SYRINGE IM ONE (18:35)
[2022-08-05] MEDS ORDERED: diazePAM 10MG/2ML SYRINGE IV ONE (19:25)
[2022-08-05 20:54] VITALS: BP 105/64
== END 2022-08-05 21:03 | disposition home or self-care (01) ==
LOC: M ED 11:59
DX: G89.4 Chronic pain syndrome (principal); R53.1 Weakness; I11.9 Hypertensive heart disease without heart failure; N18.30 Chronic kidney disease, stage 3 unspecified; J44.9 Chronic obstructive pulmonary disease, unspecified; E78.5 Hyperlipidemia, unspecified; Z88.8 Allergy status to other drugs, medicaments and biological substances; Z79.899 Other long term (current) drug therapy; Z79.52 Long term (current) use of systemic steroids; Z79.51 Long term (current) use of inhaled steroids
CPT/HCPCS: 71045; 72128; 72131; 73110; 80048; 80076; 80143; 80307; 81001; 82077; 82140; 82150; 82550; 82553; 83605; 83690; 83880; 83930; 84443; 85025; 85610; 85730; 87631; 93005; 94640; 96374; 96375; 96376; 99284; J2405

== ENCOUNTER 2022-08-12 17:13 | Inpatient (IN) | payer OTHER ==
[~2022-08-12] VITALS: Ht 160 cm; Wt 97.1 kg
[~2022-08-12 17:13] MED LIST changes: -ASPE16CR TOP; +FLUT50SP17; -FLUTISP; +LIDO2SOBTL TOP; -LIDO2SOL9 TOP; +LIDO76.52 TOP
[2022-08-12] MEDS ORDERED: NS 500 ML IV ONE (18:10)
[2022-08-12 19:04] LABS: BASO % 0.5 % (0.0-1.0); EOS # 0.3 10^3/uL (0.0-0.5); EOS % 3.7 % (0.0-3.0); HEMATOCRIT 41.7 % (36.0-47.0); HEMOGLOBIN 12.9 g/dl (12.0-15.5); LYMPH # 2.1 10^3/uL (1.5-5.0); LYMPH % 27.2 % (24.0-44.0); MEAN CORPUSCULAR HEMOGLOBIN 27.2 pg (27.0-33.0); MEAN CORPUSCULAR HGB CONC 30.9 g/dl (32.0-36.5); MONO # 0.6 10^3/uL (0.0-0.8); MONO % 8.3 % (2.0-8.0); NEUTROPHILS # 4.5 10^3/uL (1.5-8.5); PLATELET COUNT, AUTOMATED 213 10^3/uL (150-450); RED BLOOD COUNT 4.74 10^6/uL (4.00-5.40); WHITE BLOOD COUNT 7.6 10^3/uL (4.0-10.0)
[2022-08-12 19:18] LABS: INR 1.02; PARTIAL THROMBOPLASTIN TIME 27.5 SECONDS (24.8-34.2); PROTHROMBIN TIME 13.6 SECONDS (12.5-14.5)
[2022-08-12 19:37] LABS: CK-MB VALUE MASS 1.4 NG/ML (<3.6); MB/CK RELATIVE INDEX 1.17 (< OR =4)
[2022-08-12 19:38] LABS: ALBUMIN 3.8 G/DL (3.2-5.2); BILIRUBIN,DIRECT 0.2 MG/DL (<0.4); BILIRUBIN,TOTAL 0.4 MG/DL (0.3-1.2); CALCIUM LEVEL 8.6 MG/DL (8.3-10.6); GLOMERULAR FILTRATION RATE 59.4 (>45); POTASSIUM SERUM 3.9 MMOL/L (3.5-5.1); TOTAL PROTEIN 7.2 G/DL (5.7-8.2)
[2022-08-12 19:42] LABS: FREE T4 1.32 NG/DL (0.89-1.76); RSV AMPLIFICATION NEGATIVE (NEGATIVE)
[2022-08-12 20:05] LABS: CK-MB VALUE MASS 1.4 NG/ML (<3.6)
[2022-08-12 20:11] LABS: MB/CK RELATIVE INDEX 1.21 (< OR =4)
[2022-08-12] MEDS ORDERED: ACETAMINOPHEN TAB 650MG DOSE (2X325MG) PO ONE (22:10)
[2022-08-12] MEDS ORDERED: FURO20TA2 PO (22:58)
[2022-08-12] MEDS ORDERED: ASPI-161 PO (22:58)
[2022-08-12] MEDS ORDERED: LORA2TAB14 PO (22:58)
[2022-08-12] MEDS ORDERED: ONDA8TAB8 PO (22:59)
[2022-08-12] MEDS ORDERED: IPRA0.00 INH (22:59)
[2022-08-12] MEDS ORDERED: MIRA1POW3 PO (22:59)
[2022-08-12] MEDS ORDERED: HOME MED LIST COMPLETE! XX SCH (23:00)
[2022-08-13 03:03] VITALS: BP 136/72
[2022-08-13] MEDS ORDERED: ACETAMINOPHEN TAB 650MG DOSE (2X325MG) PO PRN (04:00)
[2022-08-13] MEDS ORDERED: MOM 30ML SUSPENSION UDC PO PRN (04:30)
[2022-08-13] MEDS: cefTRIAXone SOD 1 GM in D5W MINI-BAG PLUS 50 ML IV SCH (04:58)
[2022-08-13] MEDS ORDERED: LIDOCAINE 5% (LIDODERM) PATCH TD ONE (05:00)
[2022-08-13] MEDS: LEVOTHYROXINE 150MCG TABLET (0.15MG) PO SCH (05:45)
[2022-08-13 06:00] VITALS: BP 161/80
[2022-08-13 06:08] LABS: HEMATOCRIT 39.7 % (36.0-47.0); HEMOGLOBIN 12.3 g/dl (12.0-15.5); MEAN CORPUSCULAR HEMOGLOBIN 27.1 pg (27.0-33.0); MEAN CORPUSCULAR VOLUME 87.4 fl (80.0-96.0); PLATELET COUNT, AUTOMATED 206 10^3/uL (150-450); RED BLOOD COUNT 4.54 10^6/uL (4.00-5.40); WHITE BLOOD COUNT 5.1 10^3/uL (4.0-10.0)
[2022-08-13] MEDS: SYMBICORT 160/4.5MCG INHALER 6GM INH SCH ×2 (07:38→20:00)
[2022-08-13] MEDS ORDERED: IPRATROPIUM 0.5MG/ALBUTEROL 2.5MG INH SOL UD 3ML (DUONEB) NEB SCH (08:00)
[2022-08-13 08:35] LABS: BLOOD UREA NITROGEN 12 MG/DL (9-23); CALCIUM LEVEL 7.9 MG/DL (8.3-10.6); CARBON DIOXIDE LEVEL 25 MMOL/L (20-31); CHLORIDE LEVEL 108 MMOL/L (98-107); CREATININE FOR GFR 0.83 MG/DL (0.55-1.30); GLOMERULAR FILTRATION RATE > 60.0 (>45); GLUCOSE, FASTING 98 MG/DL (74-106); POTASSIUM SERUM 4.1 MMOL/L (3.5-5.1); SODIUM LEVEL 138 MMOL/L (136-145)
[2022-08-13] MEDS ORDERED: ALBUTEROL 90 MCG/ACT 8GM HFA INHALER INH PRN (08:45)
[2022-08-13] MEDS ORDERED: MIRALAX *UNIT DOSE* 17GM PACKET PO PRN (08:45)
[2022-08-13] MEDS ORDERED: PANTOPRAZOLE 40MG VIAL IV SCH (09:00)
[2022-08-13] MEDS ORDERED: ENOXAPARIN 40MG/0.4ML SYRINGE (J1650 PER 10MG) SC SCH (09:00)
[2022-08-13] MEDS ORDERED: amLODIPine 5 MG TAB PO SCH (09:00)
[2022-08-13] MEDS ORDERED: FUROSEMIDE 20 MG TAB PO SCH (09:00)
[2022-08-13] MEDS: FUROSEMIDE 20MG/2ML VIAL IV SCH ×2 (09:53→16:04)
[2022-08-13] MEDS: predniSONE 20 MG TAB PO SCH (09:53)
[2022-08-13] MEDS: DOCUSATE SODIUM 100MG CAPSULE PO SCH ×2 (09:53→20:26)
[2022-08-13] MEDS: ATORVASTATIN 20 MG TAB PO SCH (09:53)
[2022-08-13] MEDS: oxyBUTYnin 5 MG TAB PO SCH ×3 (09:53→20:26)
[2022-08-13] MEDS: ASPIRIN 81MG ENTERIC TABLET PO SCH (09:53)
[2022-08-13] MEDS: QUEtiapine FUMARATE 25 MG TAB PO SCH ×2 (09:54→20:26)
[2022-08-13] MEDS: GABAPENTIN 300 MG CAP PO SCH ×3 (09:54→20:26)
[2022-08-13] MEDS: oxyCODONE 5MG TAB PO PRN ×3 (09:55→19:48)
[2022-08-13 12:39] LABS: HEMOGLOBIN 13.5 g/dl (12.0-15.5)
[2022-08-13 14:00] VITALS: BP 121/59
[2022-08-13] MEDS ORDERED: IPRATROPIUM 0.5MG/ALBUTEROL 2.5MG INH SOL UD 3ML (DUONEB) NEB PRN (14:50)
[2022-08-13] MEDS: LORazepam 2 MG TAB PO PRN (15:05)
[2022-08-13] MEDS ORDERED: ALBUTEROL SULFATE 2.5MG/0.5ML INH NEB SOLN NEB PRN (15:10)
[2022-08-13] MEDS ORDERED: NICOTINE 21MG/24HR 1 EA TRANSDERMAL TD PRN (15:20)
[2022-08-13 18:20] LABS: HEMATOCRIT 42.5 % (36.0-47.0); HEMOGLOBIN 13.4 g/dl (12.0-15.5)
[2022-08-13] MEDS ORDERED: ONDANSETRON 4MG 2ML VIAL IV PRN (19:35)
[2022-08-13] MEDS ORDERED: ONDANSETRON 4MG ORAL DISINTEGRATING TAB SL PRN (19:55)
[2022-08-13 20:00] VITALS: BP 120/61
[2022-08-13] MEDS: ALBUTEROL SULFATE 2.5MG/0.5ML INH NEB SOLN NEB SCH (20:01)
[2022-08-13] MEDS ORDERED: OMEPRAZOLE 20MG CAP PO SCH (21:00)
[2022-08-13] MEDS: PANTOPRAZOLE 40MG TAB (PROTONIX) PO SCH (21:57)
[2022-08-14] MEDS: LORazepam 2 MG TAB PO PRN (01:21)
[2022-08-14] MEDS: oxyCODONE 5MG TAB PO PRN ×2 (01:24→08:07)
[2022-08-14] MEDS: ALBUTEROL SULFATE 2.5MG/0.5ML INH NEB SOLN NEB SCH ×2 (02:14→07:26)
[2022-08-14] MEDS: cefTRIAXone SOD 1 GM in D5W MINI-BAG PLUS 50 ML IV SCH (04:42)
[2022-08-14 05:38] VITALS: BP 131/62
[2022-08-14] MEDS: LEVOTHYROXINE 150MCG TABLET (0.15MG) PO SCH (05:39)
[2022-08-14 07:22] LABS: BLOOD UREA NITROGEN 14 MG/DL (9-23); CALCIUM LEVEL 7.9 MG/DL (8.3-10.6); CARBON DIOXIDE LEVEL 26 MMOL/L (20-31); CHLORIDE LEVEL 103 MMOL/L (98-107); CREATININE FOR GFR 0.94 MG/DL (0.55-1.30); GLOMERULAR FILTRATION RATE > 60.0 (>45); GLUCOSE, FASTING 144 MG/DL (74-106); POTASSIUM SERUM 3.4 MMOL/L (3.5-5.1); SODIUM LEVEL 140 MMOL/L (136-145)
[2022-08-14] MEDS: SYMBICORT 160/4.5MCG INHALER 6GM INH SCH (07:26)
[2022-08-14] MEDS ORDERED: TIOTROPIUM INHALER/CAPSULE (SPIRIVA) INH SCH (08:00)
[2022-08-14] MEDS: FUROSEMIDE 20MG/2ML VIAL IV SCH (08:05)
[2022-08-14] MEDS: ATORVASTATIN 20 MG TAB PO SCH (08:05)
[2022-08-14 08:07] VITALS: BP 122/58
[2022-08-14] MEDS: oxyBUTYnin 5 MG TAB PO SCH (08:07)
[2022-08-14] MEDS: ASPIRIN 81MG ENTERIC TABLET PO SCH (08:07)
[2022-08-14 08:08] VITALS: BP 122/58
[2022-08-14] MEDS: QUEtiapine FUMARATE 25 MG TAB PO SCH (08:08)
[2022-08-14] MEDS: predniSONE 20 MG TAB PO SCH (08:08)
[2022-08-14] MEDS: DOCUSATE SODIUM 100MG CAPSULE PO SCH (08:08)
[2022-08-14] MEDS: PANTOPRAZOLE 40MG TAB (PROTONIX) PO SCH (08:08)
[2022-08-14] MEDS: GABAPENTIN 300 MG CAP PO SCH (08:08)
[2022-08-14 08:42] LABS: BASO # 0.1 10^3/uL (0.0-0.2); BASO % 0.7 % (0.0-1.0); EOS # 0.1 10^3/uL (0.0-0.5); EOS % 0.7 % (0.0-3.0); HEMATOCRIT 39.9 % (36.0-47.0); HEMOGLOBIN 12.2 g/dl (12.0-15.5); LYMPH # 2.5 10^3/uL (1.5-5.0); LYMPH % 28.1 % (24.0-44.0); MEAN CORPUSCULAR HEMOGLOBIN 26.9 pg (27.0-33.0); MEAN CORPUSCULAR HGB CONC 30.6 g/dl (32.0-36.5); MEAN CORPUSCULAR VOLUME 87.9 fl (80.0-96.0); MONO # 1.1 10^3/uL (0.0-0.8); NEUTROPHILS # 5.1 10^3/uL (1.5-8.5); PLATELET COUNT, AUTOMATED 187 10^3/uL (150-450); RED BLOOD COUNT 4.54 10^6/uL (4.00-5.40); WHITE BLOOD COUNT 8.7 10^3/uL (4.0-10.0)
[2022-08-14] MEDS ORDERED: MIRALAX *UNIT DOSE* 17GM PACKET PO SCH (09:00)
[2022-08-14] MEDS ORDERED: CEFD300C41 PO (10:00)
== END 2022-08-14 12:49 | disposition home or self-care (01) | DRG 253 ==
LOC: M ED 17:13 → M ED INP 23:25 → M MSPAV 08-13 02:53
PROVIDERS: ADMIT Family Medicine; ATTEND Internal Medicine
DX: K62.5 Hemorrhage of anus and rectum (principal); I27.81 Cor pulmonale (chronic); I13.0 Hypertensive heart and chronic kidney disease with heart failure and stage 1 through stage 4 chronic kidney disease, or unspecified chronic kidney disease; R13.10 Dysphagia, unspecified; F25.9 Schizoaffective disorder, unspecified; I50.32 Chronic diastolic (congestive) heart failure; N18.31 Chronic kidney disease, stage 3a; K76.0 Fatty (change of) liver, not elsewhere classified; J44.9 Chronic obstructive pulmonary disease, unspecified; E03.9 Hypothyroidism, unspecified; F17.210 Nicotine dependence, cigarettes, uncomplicated; G47.33 Obstructive sleep apnea (adult) (pediatric); M54.12 Radiculopathy, cervical region; I25.10 Atherosclerotic heart disease of native coronary artery without angina pectoris; D50.9 Iron deficiency anemia, unspecified; F41.9 Anxiety disorder, unspecified; K64.9 Unspecified hemorrhoids; M54.50 Low back pain, unspecified; R73.03 Prediabetes; M54.32 Sciatica, left side; R32 Unspecified urinary incontinence; M54.31 Sciatica, right side; K59.00 Constipation, unspecified; E78.5 Hyperlipidemia, unspecified; K58.2 Mixed irritable bowel syndrome; K22.70 Barrett's esophagus without dysplasia; Z79.82 Long term (current) use of aspirin; Z79.890 Hormone replacement therapy; Z79.899 Other long term (current) drug therapy; Z88.1 Allergy status to other antibiotic agents; Z88.6 Allergy status to analgesic agent; Z88.8 Allergy status to other drugs, medicaments and biological substances; Z20.822 Contact with and (suspected) exposure to COVID-19; S52.502S Unspecified fracture of the lower end of left radius, sequela; Z74.1 Need for assistance with personal care; Z71.6 Tobacco abuse counseling

== ENCOUNTER → 2022-08-22 | Outpatient (REF) | payer OTHER ==
[~2022-08-22] MED LIST changes: +ASPI-161 PO; +MIRA1POW3 PO; +ONDA8TAB8 PO
== END ==
LOC: M SFHCPLAZ 12:49
PROVIDERS: ATTEND Physician Assistant
DX: R30.0 Dysuria (principal)

== ENCOUNTER 2022-08-23 11:52 | Outpatient (CLI) | payer OTHER ==
[~2022-08-23] VITALS: Ht 160 cm; Wt 107.5 kg
[~2022-08-23 11:52] MED LIST changes: +ALBUTEROL SULFATE 2.5MG/0.5ML INH NEB SOLN INH PRN; +EPINEPHrine INJ 1 MG/ML 1ML AMP IM PRN; +FERRIC CARBOXYMALTOSE INJ 750 MG in NS 250 ML (>50kg) IV ONE; +NS 1,000 ML IV SCH; +diphenhydrAMINE 50MG/ML VIAL IV PRN; +methylPREDNISolone 125MG 2ML VIAL IV PRN
[2022-08-23] MEDS ORDERED: NS 1,000 ML IV SCH (12:30)
[2022-08-23] MEDS ORDERED: FERRIC CARBOXYMALTOSE INJ 750 MG in NS 250 ML (>50kg) IV ONE ×3 (12:30)
[2022-08-23 12:39] VITALS: BP 148/70
== END 2022-08-23 13:40 | disposition home or self-care (01) ==
LOC: M INFU 11:52
PROVIDERS: ATTEND Internal Medicine Hematology
DX: D50.9 Iron deficiency anemia, unspecified (principal); Z88.6 Allergy status to analgesic agent; Z88.1 Allergy status to other antibiotic agents; Z88.8 Allergy status to other drugs, medicaments and biological substances
CPT/HCPCS: 96365; J1439

== ENCOUNTER → 2022-09-03 | Outpatient (REF) | payer OTHER ==
[~2022-09-03] MED LIST changes: -ALBUTEROL SULFATE 2.5MG/0.5ML INH NEB SOLN INH PRN; -EPINEPHrine INJ 1 MG/ML 1ML AMP IM PRN; -FERRIC CARBOXYMALTOSE INJ 750 MG in NS 250 ML (>50kg) IV ONE; -NS 1,000 ML IV SCH; -diphenhydrAMINE 50MG/ML VIAL IV PRN; -methylPREDNISolone 125MG 2ML VIAL IV PRN
[2022-09-03 17:36] LABS: APPEARANCE, URINE CLEAR (CLEAR); BACTERIA, URINE AUTO NEGATIVE (NEGATIVE); BILIRUBIN, URINE AUTO NEGATIVE (NEGATIVE); BLOOD, URINE BLOOD NEGATIVE (NEGATIVE); COLOR, URINE YELLOW (YELLOW); GLUCOSE, URINE (UA) AUTO NEGATIVE (NEGATIVE); KETONE, URINE AUTO NEGATIVE (NEGATIVE); LEUKOCYTE ESTERASE, URINE AUTO NEGATIVE (NEGATIVE); NITRITE, URINE AUTO NEGATIVE (NEGATIVE); PROTEIN, URINE AUTO NEGATIVE (NEGATIVE); RBC, URINE AUTO 0 /HPF (0-3); SPECIFIC GRAVITY URINE AUTO 1.011 (1.002-1.035); SQUAMOUS EPITHELIAL CELL UR AU 2 /HPF (0-6); UROBILINOGEN, URINE AUTO 0.2 mg/dL (0.0-2.0); WBC, URINE AUTO 3 /HPF (0-3)
== END ==
LOC: M SFHCPLAZ 17:07
PROVIDERS: ATTEND Internal Medicine Hematology
DX: N30.00 Acute cystitis without hematuria (principal)

== ENCOUNTER → 2022-09-10 | Outpatient (REF) | payer OTHER ==
[2022-09-10 14:06] LABS: APPEARANCE, URINE CLEAR (CLEAR); BACTERIA, URINE AUTO NEGATIVE (NEGATIVE); BILIRUBIN, URINE AUTO NEGATIVE (NEGATIVE); BLOOD, URINE BLOOD NEGATIVE (NEGATIVE); COLOR, URINE YELLOW (YELLOW); GLUCOSE, URINE (UA) AUTO NEGATIVE (NEGATIVE); KETONE, URINE AUTO NEGATIVE (NEGATIVE); LEUKOCYTE ESTERASE, URINE AUTO NEGATIVE (NEGATIVE); NITRITE, URINE AUTO NEGATIVE (NEGATIVE); PROTEIN, URINE AUTO NEGATIVE (NEGATIVE); RBC, URINE AUTO 0 /HPF (0-3); SPECIFIC GRAVITY URINE AUTO 1.009 (1.002-1.035); SQUAMOUS EPITHELIAL CELL UR AU 1 /HPF (0-6); UROBILINOGEN, URINE AUTO 0.2 mg/dL (0.0-2.0); WBC, URINE AUTO 0 /HPF (0-3)
== END ==
LOC: M SFHCPLAZ 12:52
PROVIDERS: ATTEND Physician Assistant
DX: R31.9 Hematuria, unspecified (principal)

== ENCOUNTER 2022-09-16 15:58 | Emergency (ER) | payer OTHER ==
[~2022-09-16] VITALS: Ht 160 cm; Wt 100.0 kg
[2022-09-16 17:12] LABS: BASO # 0.1 10^3/uL (0.0-0.2); BASO % 1.8 % (0.0-1.0); EOS # 0.3 10^3/uL (0.0-0.5); EOS % 4.7 % (0.0-3.0); HEMATOCRIT 44.2 % (36.0-47.0); HEMOGLOBIN 14.1 g/dl (12.0-15.5); LYMPH % 33.8 % (24.0-44.0); MEAN CORPUSCULAR HEMOGLOBIN 29.2 pg (27.0-33.0); MEAN CORPUSCULAR HGB CONC 31.9 g/dl (32.0-36.5); MEAN CORPUSCULAR VOLUME 91.5 fl (80.0-96.0); MONO # 0.5 10^3/uL (0.0-0.8); MONO % 7.9 % (2.0-8.0); NEUTROPHILS # 3.1 10^3/uL (1.5-8.5); NEUTROPHILS % 51.6 % (36.0-66.0); PLATELET COUNT, AUTOMATED 167 10^3/uL (150-450); RED BLOOD COUNT 4.83 10^6/uL (4.00-5.40)
[2022-09-16 17:46] LABS: BLOOD UREA NITROGEN 12 MG/DL (9-23); CALCIUM LEVEL 8.2 MG/DL (8.3-10.6); CARBON DIOXIDE LEVEL 30 MMOL/L (20-31); CHLORIDE LEVEL 107 MMOL/L (98-107); CREATININE FOR GFR 1.17 MG/DL (0.55-1.30); GLOMERULAR FILTRATION RATE 49.6 (>45); GLUCOSE, FASTING 106 MG/DL (74-106); POTASSIUM SERUM 3.7 MMOL/L (3.5-5.1); SODIUM LEVEL 143 MMOL/L (136-145)
[2022-09-16 20:47] LABS: RSV AMPLIFICATION NEGATIVE (NEGATIVE)
[2022-09-16] MEDS ORDERED: MORPHINE 4 MG/ML 1ML VIAL IV ONE (21:40)
[2022-09-16] MEDS ORDERED: ISOVUE-370 76% 100ML VIAL As Ordered ONE (21:46)
[2022-09-16 22:09] LABS: LIPASE 33 U/L (12-53)
[2022-09-16 22:11] LABS: ALBUMIN 3.8 G/DL (3.2-5.2); ALKALINE PHOSPHATASE 145 U/L (46-116); ALT/SGPT 27 U/L (7.0-40); AST/SGOT 24 U/L (<34); BILIRUBIN,DIRECT < 0.1 MG/DL (<0.4); BILIRUBIN,TOTAL 0.2 MG/DL (0.3-1.2); TOTAL PROTEIN 6.9 G/DL (5.7-8.2)
[2022-09-17 00:21] VITALS: BP 115/59
[2022-09-17] MEDS ORDERED: MIRA3350 PO (01:12)
== END 2022-09-17 02:40 | disposition home or self-care (01) ==
LOC: M ED 15:58
DX: K59.00 Constipation, unspecified (principal); R60.0 Localized edema; R44.3 Hallucinations, unspecified; I10 Essential (primary) hypertension; E78.5 Hyperlipidemia, unspecified; J44.9 Chronic obstructive pulmonary disease, unspecified; G47.30 Sleep apnea, unspecified; Z88.8 Allergy status to other drugs, medicaments and biological substances; Z88.6 Allergy status to analgesic agent; Z79.51 Long term (current) use of inhaled steroids; Z79.899 Other long term (current) drug therapy; Z79.82 Long term (current) use of aspirin
CPT/HCPCS: 71045; 74177; 80048; 80076; 81001; 83690; 83880; 85025; 87086; 87631; 93005; 96374; 99284; Q9967

== ENCOUNTER → 2022-09-18 | Outpatient (REF) | payer OTHER, MEDICARE ==
[2022-09-19 10:27] LABS: APPEARANCE, URINE HAZY (CLEAR); BACTERIA, URINE AUTO 1+ (NEGATIVE); BILIRUBIN, URINE AUTO NEGATIVE (NEGATIVE); BLOOD, URINE BLOOD NEGATIVE (NEGATIVE); COLOR, URINE YELLOW (YELLOW); GLUCOSE, URINE (UA) AUTO NEGATIVE (NEGATIVE); KETONE, URINE AUTO NEGATIVE (NEGATIVE); LEUKOCYTE ESTERASE, URINE AUTO 3+ (NEGATIVE); NITRITE, URINE AUTO NEGATIVE (NEGATIVE); PROTEIN, URINE AUTO NEGATIVE (NEGATIVE); RBC, URINE AUTO 2 /HPF (0-3); SPECIFIC GRAVITY URINE AUTO 1.016 (1.002-1.035); SQUAMOUS EPITHELIAL CELL UR AU 7 /HPF (0-6); UROBILINOGEN, URINE AUTO 0.2 mg/dL (0.0-2.0); WBC, URINE AUTO 45 /HPF (0-3)
== END ==
LOC: M SFHCPLAZ 10:02
PROVIDERS: ATTEND Internal Medicine Hematology
DX: N30.00 Acute cystitis without hematuria (principal)

== ENCOUNTER 2022-09-29 13:22 | Emergency (ER) | payer OTHER, MEDICARE ==
[~2022-09-29] VITALS: Ht 160 cm; Wt 105.0 kg
[2022-09-29] MEDS ORDERED: VITA10003 (13:40)
[2022-09-29 16:30] VITALS: BP 146/83
== END 2022-09-29 16:45 | disposition home or self-care (01) ==
LOC: M ED 13:22
DX: G89.4 Chronic pain syndrome (principal); I10 Essential (primary) hypertension; N18.30 Chronic kidney disease, stage 3 unspecified; J44.9 Chronic obstructive pulmonary disease, unspecified; K21.9 Gastro-esophageal reflux disease without esophagitis; G47.33 Obstructive sleep apnea (adult) (pediatric); F25.9 Schizoaffective disorder, unspecified; K58.9 Irritable bowel syndrome, unspecified; K75.81 Nonalcoholic steatohepatitis (NASH); Z88.8 Allergy status to other drugs, medicaments and biological substances; Z88.6 Allergy status to analgesic agent; Z79.51 Long term (current) use of inhaled steroids; Z79.899 Other long term (current) drug therapy; Z79.82 Long term (current) use of aspirin

== ENCOUNTER 2022-10-03 11:22 | Outpatient (RCR) | payer MEDICARE, OTHER ==
[~2022-10-03 11:22] MED LIST changes: +VITA10003
[2022-10-10] MEDS ORDERED: OXYC20TA2 (18:45)
[2022-10-10] MEDS ORDERED: LEVO1TAB39 (18:45)
[2022-10-10] MEDS ORDERED: QUET50TA4 (18:45)
[2022-10-10] MEDS ORDERED: GABA-282 (18:45)
[2022-10-10] MEDS ORDERED: GABA-282 PO (22:01)
[2022-10-10] MEDS ORDERED: LEVO1TAB39 PO (22:01)
[2022-10-10] MEDS ORDERED: CYAN100050 PO (22:01)
[2022-10-10] MEDS ORDERED: OXYC20TA2 PO (22:01)
[2022-10-10] MEDS ORDERED: FLON1SPR NARES (22:03)
[2022-10-10] MEDS ORDERED: QUET50TA4 PO (22:03)
[2022-10-10] MEDS ORDERED: ERGO500029 PO (22:03)
[2022-10-10] MEDS ORDERED: DOCU100C16 PO (22:03)
== END 2022-10-09 ==
LOC: M PT 11:22
PROVIDERS: ATTEND Internal Medicine Hematology
DX: I89.0 Lymphedema, not elsewhere classified (principal)

== ENCOUNTER → 2022-10-08 | Outpatient (CLI) | payer MEDICARE ==
[~2022-10-08] MED LIST changes: +CYAN100050 PO; +DOCU100C16 PO; +FLON1SPR NARES; +GABA-282 PO; +LEVO1TAB39; +LEVO1TAB39 PO; +OXYC20TA2; +OXYC20TA2 PO; +QUET50TA4; +QUET50TA4 PO
[2022-10-08 11:16] LABS: HEMOGLOBIN 13.7 g/dl (12.0-15.5); MEAN CORPUSCULAR HEMOGLOBIN 29.1 pg (27.0-33.0); MEAN CORPUSCULAR HGB CONC 31.9 g/dl (32.0-36.5); MEAN CORPUSCULAR VOLUME 91.3 fl (80.0-96.0); PLATELET COUNT, AUTOMATED 176 10^3/uL (150-450); RED BLOOD COUNT 4.71 10^6/uL (4.00-5.40); WHITE BLOOD COUNT 6.2 10^3/uL (4.0-10.0)
[2022-10-08 11:32] LABS: HEMOGLOBIN A1c 5.7 % (4.0-6.0)
[2022-10-08 11:33] LABS: APPEARANCE, URINE CLOUDY (CLEAR); BACTERIA, URINE AUTO NEGATIVE (NEGATIVE); BILIRUBIN, URINE AUTO NEGATIVE (NEGATIVE); BLOOD, URINE BLOOD 1+ (NEGATIVE); COLOR, URINE YELLOW (YELLOW); GLUCOSE, URINE (UA) AUTO NEGATIVE (NEGATIVE); KETONE, URINE AUTO NEGATIVE (NEGATIVE); LEUKOCYTE ESTERASE, URINE AUTO 3+ (NEGATIVE); NITRITE, URINE AUTO NEGATIVE (NEGATIVE); PROTEIN, URINE AUTO NEGATIVE (NEGATIVE); RBC, URINE AUTO 9 /HPF (0-3); SQUAMOUS EPITHELIAL CELL UR AU 1 /HPF (0-6); UROBILINOGEN, URINE AUTO 0.2 mg/dL (0.0-2.0); WBC, URINE AUTO TNTC /HPF (0-3)
[2022-10-08 11:49] LABS: C REACTIVE PROTEIN QUANTITATIV 1.2 MG/DL (<1.0)
[2022-10-08 11:51] LABS: ALBUMIN 3.9 G/DL (3.2-5.2); BILIRUBIN,TOTAL 0.3 MG/DL (0.3-1.2); CALCIUM LEVEL 8.2 MG/DL (8.3-10.6); CHOLESTEROL RISK RATIO 2.47 (<5); CREATININE FOR GFR 1.32 MG/DL (0.55-1.30); HDL CHOLESTEROL 52.6 MG/DL (>40); NON-HDL-C 77.4 MG/DL; TOTAL PROTEIN 6.9 G/DL (5.7-8.2)
[2022-10-08 11:52] LABS: THYROID STIMULATING HORMONE 53.419 uIU/ML (0.55-4.78)
[2022-10-08 11:53] LABS: CREATININE, URINE 49.9 MG/DL; FREE T4 0.13 NG/DL (0.89-1.76); MAU/CREAT RATIO 104.2 MCG/MG (0.0-30.0)
== END ==
LOC: M LAB 10:22
PROVIDERS: ATTEND Internal Medicine Hematology
DX: N30.00 Acute cystitis without hematuria (principal); I50.42 Chronic combined systolic (congestive) and diastolic (congestive) heart failure

== ENCOUNTER 2022-10-10 17:53 | Inpatient (IN) | payer MEDICARE ==
[~2022-10-10] VITALS: Ht 160 cm; Wt 109.5 kg
[~2022-10-10 17:53] MED LIST changes: -CYAN100050 PO; -DOCU100C16 PO; -FLON1SPR NARES; -GABA-282 PO; -LEVO1TAB39; -LEVO1TAB39 PO; -OXYC20TA2; -OXYC20TA2 PO; -QUET50TA4; -QUET50TA4 PO
[2022-10-10] MEDS ORDERED: LEVO1TAB39 (18:45)
[2022-10-10] MEDS ORDERED: QUET50TA4 (18:45)
[2022-10-10] MEDS ORDERED: OXYC20TA2 (18:45)
[2022-10-10] MEDS ORDERED: GABA-282 (18:45)
[2022-10-10 19:51] LABS: BASO # 0.1 10^3/uL (0.0-0.2); BASO % 1.6 % (0.0-1.0); EOS # 0.3 10^3/uL (0.0-0.5); EOS % 5.4 % (0.0-3.0); HEMATOCRIT 40.2 % (36.0-47.0); HEMOGLOBIN 12.9 g/dl (12.0-15.5); LYMPH # 2.1 10^3/uL (1.5-5.0); LYMPH % 32.9 % (24.0-44.0); MEAN CORPUSCULAR HEMOGLOBIN 29.6 pg (27.0-33.0); MEAN CORPUSCULAR HGB CONC 32.1 g/dl (32.0-36.5); MEAN CORPUSCULAR VOLUME 92.2 fl (80.0-96.0); MONO # 0.5 10^3/uL (0.0-0.8); MONO % 8.3 % (2.0-8.0); NEUTROPHILS # 3.2 10^3/uL (1.5-8.5); NEUTROPHILS % 51.2 % (36.0-66.0); PLATELET COUNT, AUTOMATED 167 10^3/uL (150-450); RED BLOOD COUNT 4.36 10^6/uL (4.00-5.40); WHITE BLOOD COUNT 6.3 10^3/uL (4.0-10.0)
[2022-10-10] MEDS: MORPHINE 4 MG/ML 1ML VIAL IV PRN ×2 (19:55→23:40)
[2022-10-10 19:58] LABS: APPEARANCE, URINE CLEAR (CLEAR); BACTERIA, URINE AUTO NEGATIVE (NEGATIVE); BILIRUBIN, URINE AUTO NEGATIVE (NEGATIVE); BLOOD, URINE BLOOD 1+ (NEGATIVE); COLOR, URINE YELLOW (YELLOW); GLUCOSE, URINE (UA) AUTO NEGATIVE (NEGATIVE); KETONE, URINE AUTO NEGATIVE (NEGATIVE); LEUKOCYTE ESTERASE, URINE AUTO 2+ (NEGATIVE); NITRITE, URINE AUTO NEGATIVE (NEGATIVE); PROTEIN, URINE AUTO NEGATIVE (NEGATIVE); RBC, URINE AUTO 1 /HPF (0-3); SQUAMOUS EPITHELIAL CELL UR AU 0 /HPF (0-6); UROBILINOGEN, URINE AUTO 0.2 mg/dL (0.0-2.0); WBC, URINE AUTO 24 /HPF (0-3)
[2022-10-10 20:02] LABS: INR 0.94; PROTHROMBIN TIME 12.8 SECONDS (12.5-14.5)
[2022-10-10 20:03] LABS: PARTIAL THROMBOPLASTIN TIME 32.3 SECONDS (24.8-34.2)
[2022-10-10 20:17] LABS: LIPASE 33 U/L (12-53)
[2022-10-10 20:18] LABS: CK-MB VALUE MASS 3.4 NG/ML (<3.6); ETHYL ALCOHOL (ETHANOL) < 0.003 % (0.000-0.010)
[2022-10-10 20:19] LABS: AMYLASE 44 U/L (30-118)
[2022-10-10 20:20] LABS: ALBUMIN 3.9 G/DL (3.2-5.2); ALKALINE PHOSPHATASE 113 U/L (46-116); ALT/SGPT 19 U/L (7.0-40); AST/SGOT 28 U/L (<34); BILIRUBIN,DIRECT < 0.1 MG/DL (<0.4); BILIRUBIN,TOTAL 0.2 MG/DL (0.3-1.2); BLOOD UREA NITROGEN 12 MG/DL (9-23); CALCIUM LEVEL 7.6 MG/DL (8.3-10.6); CARBON DIOXIDE LEVEL 28 MMOL/L (20-31); CHLORIDE LEVEL 103 MMOL/L (98-107); CREATININE FOR GFR 1.28 MG/DL (0.55-1.30); GLOMERULAR FILTRATION RATE 44.6 (>45); GLUCOSE, FASTING 88 MG/DL (74-106); POTASSIUM SERUM 4.1 MMOL/L (3.5-5.1); SODIUM LEVEL 141 MMOL/L (136-145); TOTAL PROTEIN 6.7 G/DL (5.7-8.2)
[2022-10-10 20:21] LABS: AMPHETAMINES LEVEL URINE NEGATIVE (NEGATIVE); BARBITURATES URINE NEGATIVE (NEGATIVE); BENZODIAZEPINES URINE NEGATIVE (NEGATIVE); PHENCYCLIDINE URINE NEGATIVE (NEGATIVE)
[2022-10-10 20:22] LABS: CANNABINOIDS URINE NEGATIVE (NEGATIVE); COCAINE METABOLITE URINE NEGATIVE (NEGATIVE); METHADONE URINE NEGATIVE (NEGATIVE)
[2022-10-10 20:23] LABS: CPK CREATINE PHOSPHOKINASE 505 U/L (34-145); MB/CK RELATIVE INDEX 0.67 (< OR =4); OPIATES URINE POSITIVE (NEGATIVE)
[2022-10-10 20:34] LABS: RSV AMPLIFICATION NEGATIVE (NEGATIVE)
[2022-10-10] MEDS ORDERED: LEVO1TAB39 PO (22:01)
[2022-10-10] MEDS ORDERED: GABA-282 PO (22:01)
[2022-10-10] MEDS ORDERED: OXYC20TA2 PO (22:01)
[2022-10-10] MEDS ORDERED: CYAN100050 PO (22:01)
[2022-10-10] MEDS ORDERED: ERGO500029 PO (22:03)
[2022-10-10] MEDS ORDERED: QUET50TA4 PO (22:03)
[2022-10-10] MEDS ORDERED: DOCU100C16 PO (22:03)
[2022-10-10] MEDS ORDERED: FLON1SPR NARES (22:03)
[2022-10-10] MEDS ORDERED: HOME MED LIST COMPLETE! XX SCH (22:05)
[2022-10-10] MEDS ORDERED: ACETAMINOPHEN TAB 650MG DOSE (2X325MG) PO PRN (22:15)
[2022-10-10] MEDS ORDERED: IPRATROPIUM 0.5MG/ALBUTEROL 2.5MG INH SOL UD 3ML (DUONEB) INH PRN (23:10)
[2022-10-10] MEDS ORDERED: ALBUTEROL 90 MCG/ACT 8GM HFA INHALER INH PRN (23:10)
[2022-10-10] MEDS ORDERED: NICOTINE 21MG/24HR 1 EA TRANSDERMAL TD PRN (23:15)
[2022-10-11] MEDS ORDERED: FOSFOMYCIN TROMETHAMINE 3 GM POWDER PACKET (MONUROL) PO ONE
[2022-10-11 01:05] VITALS: BP 144/79
[2022-10-11] MEDS: PANTOPRAZOLE 40MG TAB (PROTONIX) PO SCH ×3 (01:14→21:00)
[2022-10-11] MEDS: GABAPENTIN 300 MG CAP PO SCH ×4 (01:14→21:00)
[2022-10-11] MEDS: QUEtiapine FUMARATE 50MG TAB PO SCH ×3 (01:14→21:00)
[2022-10-11] MEDS: oxyCODONE 5MG TAB PO PRN ×5 (01:14→21:01)
[2022-10-11] MEDS: ADVAIR HFA 115/21MCG INHALER INH SCH ×3 (02:01→19:37)
[2022-10-11] MEDS: LEVOTHYROXINE 150MCG TABLET (0.15MG) PO SCH (05:26)
[2022-10-11 06:00] VITALS: BP 142/80
[2022-10-11 06:30] LABS: CALCIUM LEVEL 7.8 MG/DL (8.3-10.6); CREATININE FOR GFR 1.32 MG/DL (0.55-1.30); POTASSIUM SERUM 3.8 MMOL/L (3.5-5.1)
[2022-10-11] MEDS ORDERED: FUROSEMIDE 20 MG TAB PO SCH (09:00)
[2022-10-11] MEDS: FLUTICASONE PROP 0.05% NASAL SPRAY 16 GM (FLONASE) NARES SCH ×2 (10:35→21:00)
[2022-10-11] MEDS: CYANOCOBALAMIN 500 MCG TAB PO SCH (10:36)
[2022-10-11] MEDS: ASPIRIN 81MG ENTERIC TABLET PO SCH (10:37)
[2022-10-11] MEDS: HEPARIN SOD (PORCINE) 5000UNITS/ML 1ML VIAL/SYRINGE SC SCH ×2 (10:37→21:00)
[2022-10-11 14:00] VITALS: BP 121/65
[2022-10-11] MEDS: LORazepam 2 MG TAB PO PRN (15:59)
[2022-10-11] MEDS: LACTOBACILLUS ACIDOPHILUS CAP (BACID) PO SCH (17:19)
[2022-10-11 20:00] VITALS: BP 112/49
[2022-10-11] MEDS: ONDANSETRON 4MG ORAL DISINTEGRATING TAB PO PRN (21:01)
[2022-10-12] MEDS: oxyCODONE 5MG TAB PO PRN ×4 (01:20→20:29)
[2022-10-12 05:36] VITALS: BP 106/51
[2022-10-12] MEDS: LEVOTHYROXINE 150MCG TABLET (0.15MG) PO SCH (05:47)
[2022-10-12 06:20] LABS: BASO # 0.1 10^3/uL (0.0-0.2); BASO % 1.7 % (0.0-1.0); EOS # 0.3 10^3/uL (0.0-0.5); HEMATOCRIT 40.9 % (36.0-47.0); HEMOGLOBIN 12.7 g/dl (12.0-15.5); LYMPH # 1.5 10^3/uL (1.5-5.0); LYMPH % 28.5 % (24.0-44.0); MEAN CORPUSCULAR HGB CONC 31.1 g/dl (32.0-36.5); MEAN CORPUSCULAR VOLUME 93.4 fl (80.0-96.0); MONO # 0.4 10^3/uL (0.0-0.8); MONO % 8.5 % (2.0-8.0); NEUTROPHILS # 2.9 10^3/uL (1.5-8.5); NEUTROPHILS % 55.9 % (36.0-66.0); PLATELET COUNT, AUTOMATED 155 10^3/uL (150-450); RED BLOOD COUNT 4.38 10^6/uL (4.00-5.40); WHITE BLOOD COUNT 5.2 10^3/uL (4.0-10.0)
[2022-10-12 06:57] LABS: CALCIUM LEVEL 8.4 MG/DL (8.3-10.6); CREATININE FOR GFR 1.12 MG/DL (0.55-1.30); MAGNESIUM LEVEL 2.1 MG/DL (1.8-2.4); POTASSIUM SERUM 4.2 MMOL/L (3.5-5.1)
[2022-10-12] MEDS: ADVAIR HFA 115/21MCG INHALER INH SCH ×2 (07:35→20:08)
[2022-10-12] MEDS: ASPIRIN 81MG ENTERIC TABLET PO SCH (08:53)
[2022-10-12] MEDS: QUEtiapine FUMARATE 50MG TAB PO SCH ×2 (08:53→20:27)
[2022-10-12] MEDS: GABAPENTIN 300 MG CAP PO SCH ×4 (08:53→20:27)
[2022-10-12] MEDS: CYANOCOBALAMIN 500 MCG TAB PO SCH (08:53)
[2022-10-12] MEDS: LACTOBACILLUS ACIDOPHILUS CAP (BACID) PO SCH ×2 (08:53→17:49)
[2022-10-12] MEDS: PANTOPRAZOLE 40MG TAB (PROTONIX) PO SCH ×2 (08:53→20:28)
[2022-10-12] MEDS: HEPARIN SOD (PORCINE) 5000UNITS/ML 1ML VIAL/SYRINGE SC SCH ×2 (08:54→20:28)
[2022-10-12] MEDS: FLUTICASONE PROP 0.05% NASAL SPRAY 16 GM (FLONASE) NARES SCH ×2 (08:54→21:00)
[2022-10-12] MEDS ORDERED: FUROSEMIDE 40 MG TAB PO SCH (09:00)
[2022-10-12 09:47] VITALS: BP 108/62
[2022-10-12] MEDS: LORazepam 2 MG TAB PO PRN (16:41)
[2022-10-12 20:00] VITALS: BP 133/69
[2022-10-13] MEDS: oxyCODONE 5MG TAB PO PRN ×4 (03:28→20:39)
[2022-10-13] MEDS: LEVOTHYROXINE 150MCG TABLET (0.15MG) PO SCH (05:49)
[2022-10-13] MEDS: LIDOCAINE 5% (LIDODERM) PATCH TD PRN (05:49)
[2022-10-13 06:00] VITALS: BP 125/67
[2022-10-13] MEDS ORDERED: oxyCODONE 5MG TAB PO ONE (06:00)
[2022-10-13] MEDS ORDERED: MIRALAX *UNIT DOSE* 17GM PACKET PO ONE (06:00)
[2022-10-13 06:52] LABS: CALCIUM LEVEL 7.8 MG/DL (8.3-10.6); CREATININE FOR GFR 1.35 MG/DL (0.55-1.30); GLOMERULAR FILTRATION RATE 41.9 (>45); MAGNESIUM LEVEL 2.2 MG/DL (1.8-2.4); POTASSIUM SERUM 4.1 MMOL/L (3.5-5.1)
[2022-10-13] MEDS: ADVAIR HFA 115/21MCG INHALER INH SCH ×2 (07:12→19:34)
[2022-10-13 08:36] LABS: BASO # 0.1 10^3/uL (0.0-0.2); BASO % 1.2 % (0.0-1.0); EOS # 0.2 10^3/uL (0.0-0.5); EOS % 3.9 % (0.0-3.0); HEMATOCRIT 44.5 % (36.0-47.0); HEMOGLOBIN 13.7 g/dl (12.0-15.5); LYMPH # 1.8 10^3/uL (1.5-5.0); LYMPH % 31.5 % (24.0-44.0); MEAN CORPUSCULAR HEMOGLOBIN 29.1 pg (27.0-33.0); MEAN CORPUSCULAR HGB CONC 30.8 g/dl (32.0-36.5); MEAN CORPUSCULAR VOLUME 94.7 fl (80.0-96.0); MONO # 0.4 10^3/uL (0.0-0.8); MONO % 6.7 % (2.0-8.0); NEUTROPHILS # 3.3 10^3/uL (1.5-8.5); NEUTROPHILS % 56.4 % (36.0-66.0); PLATELET COUNT, AUTOMATED 142 10^3/uL (150-450); WHITE BLOOD COUNT 5.8 10^3/uL (4.0-10.0)
[2022-10-13] MEDS: FLUTICASONE PROP 0.05% NASAL SPRAY 16 GM (FLONASE) NARES SCH ×2 (08:56→20:44)
[2022-10-13] MEDS: CYANOCOBALAMIN 500 MCG TAB PO SCH (08:57)
[2022-10-13] MEDS: GABAPENTIN 300 MG CAP PO SCH ×3 (08:57→20:38)
[2022-10-13] MEDS: LACTOBACILLUS ACIDOPHILUS CAP (BACID) PO SCH ×2 (08:57→17:37)
[2022-10-13] MEDS: PANTOPRAZOLE 40MG TAB (PROTONIX) PO SCH ×2 (08:58→20:39)
[2022-10-13] MEDS: FUROSEMIDE 20 MG TAB PO SCH (08:58)
[2022-10-13] MEDS: HEPARIN SOD (PORCINE) 5000UNITS/ML 1ML VIAL/SYRINGE SC SCH ×2 (08:58→20:38)
[2022-10-13] MEDS: ASPIRIN 81MG ENTERIC TABLET PO SCH (08:58)
[2022-10-13] MEDS: QUEtiapine FUMARATE 50MG TAB PO SCH ×2 (08:58→20:39)
[2022-10-13] MEDS: ACETAMINOPHEN 650MG ER TAB (TYLENOL ARTHRITIS) PO PRN (09:21)
[2022-10-13] MEDS: LORazepam 2 MG TAB PO PRN (18:56)
[2022-10-14] MEDS: ACETAMINOPHEN 650MG ER TAB (TYLENOL ARTHRITIS) PO PRN (00:01)
[2022-10-14] MEDS: oxyCODONE 5MG TAB PO PRN ×3 (01:40→11:07)
[2022-10-14] MEDS: ONDANSETRON 4MG ORAL DISINTEGRATING TAB PO PRN (01:44)
[2022-10-14] MEDS: LIDOCAINE 5% (LIDODERM) PATCH TD PRN (05:11)
[2022-10-14 06:00] VITALS: BP 101/53
[2022-10-14 06:12] LABS: BASO # 0.1 10^3/uL (0.0-0.2); BASO % 1.6 % (0.0-1.0); EOS # 0.3 10^3/uL (0.0-0.5); EOS % 4.5 % (0.0-3.0); HEMATOCRIT 41.4 % (36.0-47.0); HEMOGLOBIN 12.8 g/dl (12.0-15.5); LYMPH # 1.9 10^3/uL (1.5-5.0); LYMPH % 34.8 % (24.0-44.0); MEAN CORPUSCULAR HEMOGLOBIN 29.2 pg (27.0-33.0); MEAN CORPUSCULAR HGB CONC 30.9 g/dl (32.0-36.5); MEAN CORPUSCULAR VOLUME 94.3 fl (80.0-96.0); MONO # 0.4 10^3/uL (0.0-0.8); MONO % 6.9 % (2.0-8.0); NEUTROPHILS # 2.9 10^3/uL (1.5-8.5); NEUTROPHILS % 51.8 % (36.0-66.0); PLATELET COUNT, AUTOMATED 140 10^3/uL (150-450); RED BLOOD COUNT 4.39 10^6/uL (4.00-5.40); WHITE BLOOD COUNT 5.5 10^3/uL (4.0-10.0)
[2022-10-14] MEDS: LEVOTHYROXINE 150MCG TABLET (0.15MG) PO SCH (06:22)
[2022-10-14] MEDS: ADVAIR HFA 115/21MCG INHALER INH SCH (06:29)
[2022-10-14 06:36] LABS: CALCIUM LEVEL 8.3 MG/DL (8.3-10.6); CREATININE FOR GFR 1.29 MG/DL (0.55-1.30); GLOMERULAR FILTRATION RATE 44.2 (>45); MAGNESIUM LEVEL 2.2 MG/DL (1.8-2.4); POTASSIUM SERUM 4.4 MMOL/L (3.5-5.1)
[2022-10-14] MEDS ORDERED: SENOKOT S TAB PO PRN (08:05)
[2022-10-14] MEDS ORDERED: BISACODYL 10MG SUPP PR ONE (08:05)
[2022-10-14] MEDS ORDERED: MOM 30ML SUSPENSION UDC PO PRN ×2 (08:05)
[2022-10-14] MEDS: LACTOBACILLUS ACIDOPHILUS CAP (BACID) PO SCH (08:24)
[2022-10-14] MEDS: CYANOCOBALAMIN 500 MCG TAB PO SCH (08:24)
[2022-10-14] MEDS: QUEtiapine FUMARATE 50MG TAB PO SCH (08:24)
[2022-10-14] MEDS: ASPIRIN 81MG ENTERIC TABLET PO SCH (08:24)
[2022-10-14] MEDS: GABAPENTIN 300 MG CAP PO SCH (08:25)
[2022-10-14] MEDS: PANTOPRAZOLE 40MG TAB (PROTONIX) PO SCH (08:25)
[2022-10-14 08:27] VITALS: BP 118/71
[2022-10-14] MEDS: FUROSEMIDE 20 MG TAB PO SCH (08:27)
[2022-10-14] MEDS: HEPARIN SOD (PORCINE) 5000UNITS/ML 1ML VIAL/SYRINGE SC SCH (08:28)
[2022-10-14] MEDS: FLUTICASONE PROP 0.05% NASAL SPRAY 16 GM (FLONASE) NARES SCH (08:29)
[2022-10-14] MEDS ORDERED: VITAMIN D 50,000 UNITS CAPSULE (ERGOCALCIFEROL 1.25MG) PO SCH (09:00)
[2022-10-14 12:43] VITALS: BP 118/71
[2022-10-14] MEDS ORDERED: OXYC-1 PO (15:45)
== END 2022-10-14 13:21 | disposition home or self-care (01) | DRG 92 ==
LOC: M ED 17:53 → M ED INP 23:50 → M MSPAV 10-11 01:00
PROVIDERS: ADMIT Internal Medicine; ATTEND Internal Medicine
DX: R29.6 Repeated falls (principal); I50.32 Chronic diastolic (congestive) heart failure; F11.20 Opioid dependence, uncomplicated; F13.20 Sedative, hypnotic or anxiolytic dependence, uncomplicated; I13.0 Hypertensive heart and chronic kidney disease with heart failure and stage 1 through stage 4 chronic kidney disease, or unspecified chronic kidney disease; G72.0 Drug-induced myopathy; J44.9 Chronic obstructive pulmonary disease, unspecified; N18.31 Chronic kidney disease, stage 3a; E03.9 Hypothyroidism, unspecified; F17.210 Nicotine dependence, cigarettes, uncomplicated; K76.0 Fatty (change of) liver, not elsewhere classified; N30.90 Cystitis, unspecified without hematuria; F25.9 Schizoaffective disorder, unspecified; D50.9 Iron deficiency anemia, unspecified; M54.2 Cervicalgia; M54.50 Low back pain, unspecified; G89.29 Other chronic pain; R73.03 Prediabetes; E78.5 Hyperlipidemia, unspecified; K58.0 Irritable bowel syndrome with diarrhea; G47.33 Obstructive sleep apnea (adult) (pediatric); M54.30 Sciatica, unspecified side; K21.9 Gastro-esophageal reflux disease without esophagitis; F41.9 Anxiety disorder, unspecified; I27.81 Cor pulmonale (chronic); Z79.82 Long term (current) use of aspirin; Z79.890 Hormone replacement therapy; Z79.899 Other long term (current) drug therapy; Z79.2 Long term (current) use of antibiotics; Z88.1 Allergy status to other antibiotic agents; Z88.8 Allergy status to other drugs, medicaments and biological substances; Z71.6 Tobacco abuse counseling; Z20.822 Contact with and (suspected) exposure to COVID-19; Z74.1 Need for assistance with personal care

== ENCOUNTER 2022-11-06 12:00 | Outpatient (RCR) | payer MEDICARE ==
[~2022-11-06 12:00] MED LIST changes: +CYAN-1 PO; +DOCU100C16 PO; +FLON1SPR NARES; +GABA-282 PO; +LEVO1TAB39; +LEVO1TAB39 PO; +OXYC20TA2; +OXYC20TA2 PO; +QUET50TA4; +QUET50TA4 PO
== END 2022-11-08 ==
LOC: M PT 12:00
PROVIDERS: ATTEND Internal Medicine Hematology
DX: I89.0 Lymphedema, not elsewhere classified (principal)

== ENCOUNTER 2022-11-17 21:34 | Emergency (ER) | payer MEDICARE ==
[~2022-11-17] VITALS: Ht 160 cm; Wt 102.1 kg
[2022-11-17 22:20] LABS: APPEARANCE, URINE CLEAR (CLEAR); BACTERIA, URINE AUTO NEGATIVE (NEGATIVE); BILIRUBIN, URINE AUTO NEGATIVE (NEGATIVE); BLOOD, URINE BLOOD NEGATIVE (NEGATIVE); COLOR, URINE YELLOW (YELLOW); GLUCOSE, URINE (UA) AUTO NEGATIVE (NEGATIVE); KETONE, URINE AUTO NEGATIVE (NEGATIVE); LEUKOCYTE ESTERASE, URINE AUTO NEGATIVE (NEGATIVE); NITRITE, URINE AUTO NEGATIVE (NEGATIVE); PROTEIN, URINE AUTO NEGATIVE (NEGATIVE); RBC, URINE AUTO 0 /HPF (0-3); SPECIFIC GRAVITY URINE AUTO 1.009 (1.002-1.035); SQUAMOUS EPITHELIAL CELL UR AU 1 /HPF (0-6); UROBILINOGEN, URINE AUTO 0.2 mg/dL (0.0-2.0); WBC, URINE AUTO 1 /HPF (0-3)
[2022-11-18 03:50] VITALS: BP 156/78; TEMP 97.4; O2SAT 95
== END 2022-11-18 04:32 | disposition home or self-care (01) ==
LOC: M ED 21:34
DX: M25.432 Effusion, left wrist (principal); F17.218 Nicotine dependence, cigarettes, with other nicotine-induced disorders; I10 Essential (primary) hypertension; Z88.8 Allergy status to other drugs, medicaments and biological substances; Z88.6 Allergy status to analgesic agent; Z79.899 Other long term (current) drug therapy; Z79.51 Long term (current) use of inhaled steroids; Z79.82 Long term (current) use of aspirin

== ENCOUNTER → 2022-11-18 | Outpatient (CLI) | payer MEDICARE | LOC: M RAD 09:39 | PROVIDERS: ATTEND Internal Medicine Pulmonary Disease | DX: F17.218 Nicotine dependence, cigarettes, with other nicotine-induced disorders (principal) ==

== ENCOUNTER → 2022-12-06 | Outpatient (REF) | payer MEDICARE | LOC: M SFHCPLAZ 17:10 | PROVIDERS: ATTEND Internal Medicine Hematology | DX: K58.0 Irritable bowel syndrome with diarrhea (principal) ==

== ENCOUNTER 2023-01-08 11:33 | Day surgery (SDC) | payer MEDICARE, MEDICAID ==
[~2023-01-08] VITALS: Ht 160 cm; Wt 93.1 kg
[~2023-01-08 11:33] MED LIST changes: +DICL100G10 TOP; -DICL1GEL3 TOP; -GABA-283 PO; +GABA-284 PO; +NS 1,000 ML IV ONE
[2023-01-08] MEDS ORDERED: fentaNYL 100 MCG/2 ML INJECTION As Ordered ONE (12:45)
[2023-01-08] MEDS ORDERED: propofoL 200 MG/20 ML VIAL As Ordered ONE (13:07)
[2023-01-08] MEDS ORDERED: LIDOCAINE 2% 100MG/5ML SDV (FOR ANES.) As Ordered ONE (13:07)
[2023-01-08 13:53] VITALS: TEMP 97
[2023-01-08 14:09] VITALS: BP 147/69; O2SAT 99
== END 2023-01-08 14:26 | disposition home or self-care (01) ==
LOC: M OPP 11:33
PROVIDERS: ATTEND Internal Medicine Gastroenterology
DX: D12.6 Benign neoplasm of colon, unspecified (principal); K64.0 First degree hemorrhoids; K57.30 Diverticulosis of large intestine without perforation or abscess without bleeding; K62.5 Hemorrhage of anus and rectum; D50.9 Iron deficiency anemia, unspecified; K31.9 Disease of stomach and duodenum, unspecified; K22.89 Other specified disease of esophagus; G47.33 Obstructive sleep apnea (adult) (pediatric); F17.200 Nicotine dependence, unspecified, uncomplicated; Z79.1 Long term (current) use of non-steroidal anti-inflammatories (NSAID); Z79.51 Long term (current) use of inhaled steroids; Z79.52 Long term (current) use of systemic steroids; Z79.83 Long term (current) use of bisphosphonates; Z79.891 Long term (current) use of opiate analgesic; Z79.890 Hormone replacement therapy; Z79.899 Other long term (current) drug therapy; Z88.1 Allergy status to other antibiotic agents; Z88.5 Allergy status to narcotic agent; Z88.9 Allergy status to unspecified drugs, medicaments and biological substances; Z88.8 Allergy status to other drugs, medicaments and biological substances
CPT/HCPCS: 43239; 45385; 88305; J3010

== ENCOUNTER → 2023-01-28 | Outpatient (CLI) | payer MEDICARE, MEDICAID ==
[~2023-01-28] MED LIST changes: +CELE0.09 PO; -CELE1CAP9 PO; -NS 1,000 ML IV ONE
[2023-01-28 11:14] LABS: HEMOGLOBIN A1c 5.2 % (4.0-6.0)
[2023-01-28 11:30] LABS: FREE T4 1.42 NG/DL (0.89-1.76); THYROID STIMULATING HORMONE 2.935 uIU/ML (0.55-4.78)
[2023-01-28 11:31] LABS: VITAMIN B12 LEVEL 1763 PG/ML (211-911)
[2023-01-28 11:34] LABS: ALBUMIN 3.8 G/DL (3.2-5.2); ALKALINE PHOSPHATASE 105 U/L (46-116); ALT/SGPT 26 U/L (7.0-40); AST/SGOT 19 U/L (<34); BILIRUBIN,TOTAL 0.2 MG/DL (0.3-1.2); BLOOD UREA NITROGEN 10 MG/DL (9-23); CALCIUM LEVEL 8.8 MG/DL (8.3-10.6); CARBON DIOXIDE LEVEL 27 MMOL/L (20-31); CHLORIDE LEVEL 103 MMOL/L (98-107); CHOLESTEROL LEVEL 150 MG/DL (<200); CREATININE FOR GFR 0.98 MG/DL (0.55-1.30); GLOMERULAR FILTRATION RATE > 60.0 (>45); GLUCOSE, FASTING 106 MG/DL (74-106); LDL CHOLESTEROL 67.2 MG/DL (<100); POTASSIUM SERUM 4.6 MMOL/L (3.5-5.1); SODIUM LEVEL 140 MMOL/L (136-145); TOTAL PROTEIN 7.2 G/DL (5.7-8.2); TRIGLYCERIDES LEVEL 194 MG/DL (<150)
[2023-01-28 15:01] LABS: CREATININE, URINE 63.6 MG/DL
[2023-01-28 15:03] LABS: MALB URINE SIEMENS < 3.0 MG/L; MAU/CREAT RATIO 4.7 MCG/MG (0.0-30.0)
== END ==
LOC: M PLALAB 08:46
PROVIDERS: ATTEND Internal Medicine Hematology
DX: Z13.1 Encounter for screening for diabetes mellitus (principal); Z79.899 Other long term (current) drug therapy

== ENCOUNTER → 2023-01-29 | Outpatient (REF) | payer MEDICARE, MEDICAID ==
[2023-01-29 11:53] LABS: HEMATOCRIT 45.4 % (36.0-47.0); HEMOGLOBIN 14.8 g/dl (12.0-15.5); MEAN CORPUSCULAR HEMOGLOBIN 30.4 pg (27.0-33.0); MEAN CORPUSCULAR HGB CONC 32.6 g/dl (32.0-36.5); MEAN CORPUSCULAR VOLUME 93.2 fl (80.0-96.0); PLATELET COUNT, AUTOMATED 124 10^3/uL (150-450); RED BLOOD COUNT 4.87 10^6/uL (4.00-5.40); WHITE BLOOD COUNT 4.4 10^3/uL (4.0-10.0)
== END ==
LOC: M LAB REF 11:49
PROVIDERS: ATTEND Internal Medicine Hematology
DX: Z13.1 Encounter for screening for diabetes mellitus (principal); Z79.899 Other long term (current) drug therapy

== ENCOUNTER 2023-02-12 16:32 | Emergency (ER) | payer MEDICARE ==
[2023-02-12 17:07] VITALS: BP 132/80; TEMP 98; O2SAT 99
== END 2023-02-12 17:49 | disposition left against medical advice (07) ==
LOC: M ED 16:32
DX: Z53.21 Procedure and treatment not carried out due to patient leaving prior to being seen by health care provider (principal)

== ENCOUNTER → 2023-03-06 | Outpatient (CLI) | payer MEDICARE, MEDICAID ==
[~2023-03-06] MED LIST changes: -CEFD300C41 PO; +CEFD300C42 PO
== END ==
LOC: M WHC 08:27
PROVIDERS: ATTEND Internal Medicine Hematology
DX: Z12.31 Encounter for screening mammogram for malignant neoplasm of breast (principal)

== ENCOUNTER 2023-03-14 15:36 | Emergency (ER) | payer MEDICAID, MEDICARE, OTHER ==
[~2023-03-14] VITALS: Ht 160 cm; Wt 89.3 kg
[2023-03-14 15:59] VITALS: TEMP 97.9
[2023-03-14] MEDS ORDERED: OXYC20TA2 (16:09)
[2023-03-14] MEDS ORDERED: AMIT25TA19 (16:09)
[2023-03-14] MEDS ORDERED: PRED20TA (16:09)
[2023-03-14] MEDS ORDERED: HALO1TAB (16:09)
[2023-03-14] MEDS ORDERED: MORPHINE 4 MG/ML 1ML VIAL IV ONE ×2 (17:30→21:20)
[2023-03-14] MEDS ORDERED: ONDANSETRON 4MG 2ML VIAL IV ONE (17:30)
[2023-03-14 18:04] LABS: BASO # 0.1 10^3/uL (0.0-0.2); BASO % 0.6 % (0.0-1.0); EOS # 0.1 10^3/uL (0.0-0.5); EOS % 0.5 % (0.0-3.0); HEMATOCRIT 48.8 % (36.0-47.0); LYMPH # 2.2 10^3/uL (1.5-5.0); LYMPH % 21.3 % (24.0-44.0); MEAN CORPUSCULAR HEMOGLOBIN 29.6 pg (27.0-33.0); MEAN CORPUSCULAR HGB CONC 32.8 g/dl (32.0-36.5); MEAN CORPUSCULAR VOLUME 90.2 fl (80.0-96.0); MONO # 0.9 10^3/uL (0.0-0.8); MONO % 8.6 % (2.0-8.0); NEUTROPHILS # 7.1 10^3/uL (1.5-8.5); NEUTROPHILS % 68.7 % (36.0-66.0); PLATELET COUNT, AUTOMATED 200 10^3/uL (150-450); RED BLOOD COUNT 5.41 10^6/uL (4.00-5.40); WHITE BLOOD COUNT 10.3 10^3/uL (4.0-10.0)
[2023-03-14 19:57] VITALS: BP 154/80
[2023-03-14 20:09] LABS: CK-MB VALUE MASS < 1.0 NG/ML (<3.6)
[2023-03-14 20:10] LABS: LIPASE 29 U/L (12-53)
[2023-03-14 20:13] LABS: ALBUMIN 3.7 G/DL (3.2-5.2); ALKALINE PHOSPHATASE 83 U/L (46-116); ALT/SGPT 19 U/L (7.0-40); AST/SGOT 13 U/L (<34); BILIRUBIN,DIRECT 0.1 MG/DL (<0.4); BILIRUBIN,TOTAL 0.3 MG/DL (0.3-1.2); BLOOD UREA NITROGEN 10 MG/DL (9-23); CALCIUM LEVEL 9.1 MG/DL (8.3-10.6); CARBON DIOXIDE LEVEL 26 MMOL/L (20-31); CHLORIDE LEVEL 104 MMOL/L (98-107); CPK CREATINE PHOSPHOKINASE 60 U/L (34-145); CREATININE FOR GFR 0.97 MG/DL (0.55-1.30); GLOMERULAR FILTRATION RATE > 60.0 (>45); GLUCOSE, FASTING 71 MG/DL (74-106); MB/CK RELATIVE INDEX 1.66 (< OR =4); POTASSIUM SERUM 4.3 MMOL/L (3.5-5.1); SODIUM LEVEL 140 MMOL/L (136-145); TOTAL PROTEIN 7.1 G/DL (5.7-8.2)
[2023-03-14 21:15] LABS: INR 1.02; PROTHROMBIN TIME 13.1 SECONDS (12.5-14.5)
[2023-03-14 21:16] LABS: PARTIAL THROMBOPLASTIN TIME 26.9 SECONDS (24.8-34.2)
[2023-03-14 21:28] VITALS: O2SAT 97
== END 2023-03-14 21:37 | disposition home or self-care (01) ==
LOC: M ED 15:36
DX: M54.50 Low back pain, unspecified (principal); E03.9 Hypothyroidism, unspecified; I10 Essential (primary) hypertension; E78.5 Hyperlipidemia, unspecified; J44.9 Chronic obstructive pulmonary disease, unspecified; N18.9 Chronic kidney disease, unspecified; Z87.442 Personal history of urinary calculi; F17.200 Nicotine dependence, unspecified, uncomplicated; Z79.82 Long term (current) use of aspirin; Z79.899 Other long term (current) drug therapy; Z88.6 Allergy status to analgesic agent; Z88.1 Allergy status to other antibiotic agents; Z88.5 Allergy status to narcotic agent; Z88.8 Allergy status to other drugs, medicaments and biological substances
CPT/HCPCS: 71046; 72125; 72128; 72131; 80048; 80076; 82550; 82553; 83690; 83880; 84484; 85025; 85610; 85730; 87486; 87581; 87633; 87798; 93005; 93041; 94760; 96374; 96375; 96376; 99285; J2405

== ENCOUNTER 2023-04-04 21:39 | Inpatient (IN) | payer MEDICAID, MEDICARE, OTHER ==
[~2023-04-04] VITALS: Ht 160 cm; Wt 91.7 kg
[~2023-04-04 21:39] MED LIST changes: +AMIT25TA19 PO; +HALO1TAB PO; +PRED20TA
[2023-04-04] MEDS ORDERED: IPRATROPIUM 0.5MG/ALBUTEROL 2.5MG INH SOL UD 3ML (DUONEB) NEB ONE (22:40)
[2023-04-04 23:08] LABS: BASO % 0.2 % (0.0-1.0); EOS % 0.1 % (0.0-3.0); HEMATOCRIT 47.6 % (36.0-47.0); HEMOGLOBIN 16.1 g/dl (12.0-15.5); LYMPH # 1.9 10^3/uL (1.5-5.0); LYMPH % 10.5 % (24.0-44.0); MEAN CORPUSCULAR HEMOGLOBIN 30.7 pg (27.0-33.0); MEAN CORPUSCULAR HGB CONC 33.8 g/dl (32.0-36.5); MEAN CORPUSCULAR VOLUME 90.8 fl (80.0-96.0); NEUTROPHILS % 79.7 % (36.0-66.0); PLATELET COUNT, AUTOMATED 198 10^3/uL (150-450); RED BLOOD COUNT 5.24 10^6/uL (4.00-5.40); WHITE BLOOD COUNT 17.5 10^3/uL (4.0-10.0)
[2023-04-04 23:45] LABS: BLOOD UREA NITROGEN 20 MG/DL (9-23); CALCIUM LEVEL 8.5 MG/DL (8.3-10.6); CARBON DIOXIDE LEVEL 23 MMOL/L (20-31); CHLORIDE LEVEL 103 MMOL/L (98-107); CPK CREATINE PHOSPHOKINASE 118 U/L (34-145); GLOMERULAR FILTRATION RATE > 60.0 (>45); GLUCOSE, FASTING 126 MG/DL (74-106); MB/CK RELATIVE INDEX 2.54 (< OR =4); POTASSIUM SERUM 4.8 MMOL/L (3.5-5.1); SODIUM LEVEL 138 MMOL/L (136-145)
[2023-04-04 23:48] LABS: MONO # 1.6 10^3/uL (0.0-0.8)
[2023-04-05] MEDS ORDERED: cefTRIAXone SOD 2 GM in D5W MINI-BAG PLUS 50 ML IV ONE (01:50)
[2023-04-05] MEDS ORDERED: AZITHROMYCIN INJ 500 MG, VIAL MATE ADAPTER 1 EACH in NS 250 ML IV SCH (02:00)
[2023-04-05] MEDS ORDERED: ALBUTEROL SULFATE 2.5MG/0.5ML INH NEB SOLN NEB PRN (02:25)
[2023-04-05] MEDS ORDERED: HEPARIN SOD (PORCINE) 5000UNITS/ML 1ML VIAL/SYRINGE SC SCH (02:25)
[2023-04-05] MEDS ORDERED: LR 1,000 ML IV SCH (03:40)
[2023-04-05 03:55] VITALS: BP 124/78; TEMP 97.9; O2SAT 97
[2023-04-05] MEDS ORDERED: ONDANSETRON 4MG 2ML VIAL IV ONE (04:05)
[2023-04-05] MEDS: HYDROmorphone 2 MG TAB PO PRN ×2 (04:28→22:16)
[2023-04-05] MEDS: LEVOTHYROXINE 150MCG TABLET (0.15MG) PO SCH (06:08)
[2023-04-05 07:36] LABS: BASO % 0.2 % (0.0-1.0); EOS # 0.1 10^3/uL (0.0-0.5); EOS % 0.9 % (0.0-3.0); HEMOGLOBIN 16.4 g/dl (12.0-15.5); LYMPH # 2.7 10^3/uL (1.5-5.0); LYMPH % 21.2 % (24.0-44.0); MEAN CORPUSCULAR HEMOGLOBIN 30.6 pg (27.0-33.0); MEAN CORPUSCULAR HGB CONC 33.5 g/dl (32.0-36.5); MEAN CORPUSCULAR VOLUME 91.4 fl (80.0-96.0); MONO # 1.2 10^3/uL (0.0-0.8); MONO % 9.2 % (2.0-8.0); NEUTROPHILS # 8.6 10^3/uL (1.5-8.5); NEUTROPHILS % 67.9 % (36.0-66.0); PLATELET COUNT, AUTOMATED 178 10^3/uL (150-450); RED BLOOD COUNT 5.36 10^6/uL (4.00-5.40); WHITE BLOOD COUNT 12.7 10^3/uL (4.0-10.0)
[2023-04-05 07:59] VITALS: BP 117/89; TEMP 97.2; O2SAT 93
[2023-04-05] MEDS ORDERED: IPRATROPIUM 0.5MG/ALBUTEROL 2.5MG INH SOL UD 3ML (DUONEB) NEB SCH (08:00)
[2023-04-05 08:28] LABS: BLOOD UREA NITROGEN 19 MG/DL (9-23); CALCIUM LEVEL 8.5 MG/DL (8.3-10.6); CARBON DIOXIDE LEVEL 28 MMOL/L (20-31); CHLORIDE LEVEL 103 MMOL/L (98-107); CREATININE FOR GFR 0.88 MG/DL (0.55-1.30); GLOMERULAR FILTRATION RATE > 60.0 (>45); GLUCOSE, FASTING 73 MG/DL (74-106); POTASSIUM SERUM 4.3 MMOL/L (3.5-5.1); SODIUM LEVEL 140 MMOL/L (136-145)
[2023-04-05] MEDS ORDERED: predniSONE 20 MG TAB PO SCH ×2 (09:00)
[2023-04-05] MEDS ORDERED: PANTOPRAZOLE 40MG TAB (PROTONIX) PO SCH (09:00)
[2023-04-05] MEDS ORDERED: GABAPENTIN 300 MG CAP PO SCH (09:00)
[2023-04-05] MEDS ORDERED: IPRATROPIUM 0.5MG/ALBUTEROL 2.5MG INH SOL UD 3ML (DUONEB) NEB PRN (09:10)
[2023-04-05] MEDS: KETOROLAC 30 MG/ML 1ML VIAL IV SCH ×3 (09:18→20:02)
[2023-04-05] MEDS: ENOXAPARIN 40MG/0.4ML SYRINGE (J1650 PER 10MG) SC SCH (09:19)
[2023-04-05] MEDS: ADVAIR HFA 115/21MCG INHALER INH SCH ×2 (09:37→19:27)
[2023-04-05] MEDS ORDERED: NICO1DIS11 TOP (09:50)
[2023-04-05] MEDS ORDERED: HYDR4TAB PO (09:50)
[2023-04-05] MEDS ORDERED: PRED50TA PO (09:50)
[2023-04-05] MEDS ORDERED: FIBE62TA PO (09:50)
[2023-04-05] MEDS: LORazepam 1 MG TAB PO PRN (10:20)
[2023-04-05 11:51] VITALS: BP 109/72; TEMP 97.5; O2SAT 95
[2023-04-05] MEDS ORDERED: ACETAMINOPHEN 500 MG TAB PO PRN (13:10)
[2023-04-05 13:55] VITALS: BP 109/72
[2023-04-05] MEDS: ASPIRIN 81MG ENTERIC TABLET PO SCH (13:55)
[2023-04-05 16:15] VITALS: BP 106/63; TEMP 97.6; O2SAT 96
[2023-04-05] MEDS: GABAPENTIN 300 MG CAP PO SCH ×2 (16:59→20:03)
[2023-04-05 19:53] VITALS: BP 130/81; TEMP 98; O2SAT 95
[2023-04-05] MEDS: PANTOPRAZOLE 40MG TAB (PROTONIX) PO SCH (20:02)
[2023-04-05] MEDS: QUEtiapine FUMARATE 50MG TAB PO SCH (20:02)
[2023-04-05] MEDS ORDERED: AMITRIPTYLINE 25MG TABLET PO SCH (21:00)
[2023-04-05] MEDS ORDERED: cefTRIAXone SOD 1 GM in D5W MINI-BAG PLUS 50 ML IV SCH (23:00)
[2023-04-06 00:10] VITALS: BP 119/59; TEMP 97.7; O2SAT 95
[2023-04-06] MEDS: KETOROLAC 30 MG/ML 1ML VIAL IV SCH ×2 (01:38→08:21)
[2023-04-06 04:00] VITALS: BP 146/68; TEMP 97.8; O2SAT 96
[2023-04-06] MEDS: LORazepam 1 MG TAB PO PRN (04:25)
[2023-04-06] MEDS: LEVOTHYROXINE 150MCG TABLET (0.15MG) PO SCH (05:13)
[2023-04-06 06:42] LABS: BASO % 0.1 % (0.0-1.0); EOS # 0.1 10^3/uL (0.0-0.5); EOS % 0.5 % (0.0-3.0); HEMATOCRIT 44.1 % (36.0-47.0); HEMOGLOBIN 14.7 g/dl (12.0-15.5); LYMPH # 1.4 10^3/uL (1.5-5.0); LYMPH % 14.5 % (24.0-44.0); MEAN CORPUSCULAR HEMOGLOBIN 30.2 pg (27.0-33.0); MEAN CORPUSCULAR HGB CONC 33.3 g/dl (32.0-36.5); MEAN CORPUSCULAR VOLUME 90.6 fl (80.0-96.0); MONO # 0.7 10^3/uL (0.0-0.8); MONO % 7.7 % (2.0-8.0); NEUTROPHILS # 7.2 10^3/uL (1.5-8.5); NEUTROPHILS % 76.6 % (36.0-66.0); PLATELET COUNT, AUTOMATED 146 10^3/uL (150-450); RED BLOOD COUNT 4.87 10^6/uL (4.00-5.40); WHITE BLOOD COUNT 9.4 10^3/uL (4.0-10.0)
[2023-04-06 06:55] LABS: ERYTHROCYTE SEDIMENTATION RATE 9 mm/hr (0-30)
[2023-04-06 07:02] LABS: ALBUMIN 2.8 G/DL (3.2-5.2); ALKALINE PHOSPHATASE 52 U/L (46-116); ALT/SGPT 23 U/L (7.0-40); AST/SGOT < 8 U/L (<34); BILIRUBIN,TOTAL 0.7 MG/DL (0.3-1.2); BLOOD UREA NITROGEN 22 MG/DL (9-23); CALCIUM LEVEL 8.3 MG/DL (8.3-10.6); CARBON DIOXIDE LEVEL 26 MMOL/L (20-31); CHLORIDE LEVEL 103 MMOL/L (98-107); CREATININE FOR GFR 0.85 MG/DL (0.55-1.30); GLOMERULAR FILTRATION RATE > 60.0 (>45); GLUCOSE, FASTING 98 MG/DL (74-106); POTASSIUM SERUM 4.3 MMOL/L (3.5-5.1); SODIUM LEVEL 138 MMOL/L (136-145); TOTAL PROTEIN 5.3 G/DL (5.7-8.2)
[2023-04-06] MEDS: ADVAIR HFA 115/21MCG INHALER INH SCH (07:39)
[2023-04-06 07:45] VITALS: BP 154/77; TEMP 97.5; O2SAT 97
[2023-04-06] MEDS: ASPIRIN 81MG ENTERIC TABLET PO SCH (08:20)
[2023-04-06] MEDS: QUEtiapine FUMARATE 50MG TAB PO SCH (08:20)
[2023-04-06] MEDS: ENOXAPARIN 40MG/0.4ML SYRINGE (J1650 PER 10MG) SC SCH (08:20)
[2023-04-06] MEDS: PANTOPRAZOLE 40MG TAB (PROTONIX) PO SCH (08:20)
[2023-04-06] MEDS: GABAPENTIN 300 MG CAP PO SCH (08:21)
[2023-04-06] MEDS ORDERED: FUROSEMIDE 20 MG TAB PO SCH (09:00)
[2023-04-06] MEDS ORDERED: predniSONE 20 MG TAB PO SCH (09:00)
[2023-04-06] MEDS ORDERED: ATIV1TAB7 PO ×2 (10:33→10:35)
[2023-04-06] MEDS ORDERED: QUET50TA4 PO (10:33)
[2023-04-06] MEDS ORDERED: NAPR-885 PO (10:33)
[2023-04-06] MEDS ORDERED: PRED20TA PO (10:33)
[2023-04-06] MEDS: HYDROmorphone 2 MG TAB PO PRN (11:11)
== END 2023-04-06 12:10 | disposition home or self-care (01) | DRG 191 ==
LOC: M ED 21:39 → EDBD 21:39 → M ED INP 04-05 02:21 → ENRESERV 04-05 02:40 → M PCU 04-05 03:42
PROVIDERS: ADMIT Family Medicine; ATTEND Internal Medicine Nephrology
DX: J44.1 Chronic obstructive pulmonary disease with (acute) exacerbation (principal); I50.32 Chronic diastolic (congestive) heart failure; J98.11 Atelectasis; I11.0 Hypertensive heart disease with heart failure; E78.5 Hyperlipidemia, unspecified; E03.9 Hypothyroidism, unspecified; G89.4 Chronic pain syndrome; G62.9 Polyneuropathy, unspecified; F25.9 Schizoaffective disorder, unspecified; E66.9 Obesity, unspecified; F17.200 Nicotine dependence, unspecified, uncomplicated; M35.3 Polymyalgia rheumatica; F41.9 Anxiety disorder, unspecified; G47.33 Obstructive sleep apnea (adult) (pediatric); R73.03 Prediabetes; M54.2 Cervicalgia; M54.41 Lumbago with sciatica, right side; M54.42 Lumbago with sciatica, left side; K21.9 Gastro-esophageal reflux disease without esophagitis; K76.0 Fatty (change of) liver, not elsewhere classified; K58.9 Irritable bowel syndrome, unspecified; N39.41 Urge incontinence; G43.909 Migraine, unspecified, not intractable, without status migrainosus; E55.9 Vitamin D deficiency, unspecified; Z79.82 Long term (current) use of aspirin; Z79.890 Hormone replacement therapy; Z79.899 Other long term (current) drug therapy; Z88.6 Allergy status to analgesic agent; Z88.8 Allergy status to other drugs, medicaments and biological substances; Z79.52 Long term (current) use of systemic steroids; Z68.35 Body mass index [BMI] 35.0-35.9, adult

== ENCOUNTER → 2023-04-24 | Outpatient (CLI) | payer MEDICARE, MEDICAID ==
[~2023-04-24] MED LIST changes: +ATIV1TAB7 PO; +CEFD1CAP9 PO; -CEFD300C42 PO; +FIBE62TA PO; -FLUT50SP17; +FLUTISP; +HYDR4TAB PO; +LIDO100S29 TOP; -LIDO2SOBTL TOP; +NAPR-885 PO; +NICO1DIS11 TOP; +PRED50TA PO
[2023-04-24 13:47] LABS: HEMOGLOBIN 15.1 g/dl (12.0-15.5); MEAN CORPUSCULAR HGB CONC 32.8 g/dl (32.0-36.5); MEAN CORPUSCULAR VOLUME 94.5 fl (80.0-96.0); PLATELET COUNT, AUTOMATED 204 10^3/uL (150-450); RED BLOOD COUNT 4.87 10^6/uL (4.00-5.40); WHITE BLOOD COUNT 6.6 10^3/uL (4.0-10.0)
[2023-04-24 14:17] LABS: CREATININE, URINE 51.9 MG/DL; MALB URINE SIEMENS < 3.0 MG/L; MAU/CREAT RATIO 5.7 MCG/MG (0.0-30.0)
[2023-04-24 14:18] LABS: FREE T4 1.84 NG/DL (0.89-1.76)
[2023-04-24 14:19] LABS: THYROID STIMULATING HORMONE 0.687 uIU/ML (0.55-4.78)
[2023-04-24 14:23] LABS: TOTAL 25(OH) VITAMIN D 85.2 NG/ML (20.0-100.0)
[2023-04-24 15:49] LABS: ALBUMIN 3.6 G/DL (3.2-5.2); ALKALINE PHOSPHATASE 54 U/L (46-116); ALT/SGPT 32 U/L (7.0-40); AST/SGOT 10 U/L (<34); BILIRUBIN,TOTAL 0.2 MG/DL (0.3-1.2); BLOOD UREA NITROGEN 17 MG/DL (9-23); CALCIUM LEVEL 9.1 MG/DL (8.3-10.6); CARBON DIOXIDE LEVEL 29 MMOL/L (20-31); CHLORIDE LEVEL 102 MMOL/L (98-107); CHOLESTEROL LEVEL 161 MG/DL (<200); CHOLESTEROL RISK RATIO 2.57 (<5); GLOMERULAR FILTRATION RATE > 60.0 (>45); GLUCOSE, FASTING 112 MG/DL (74-106); HDL CHOLESTEROL 62.5 MG/DL (>40); LDL CHOLESTEROL 74.5 MG/DL (<100); NON-HDL-C 98.5 MG/DL; POTASSIUM SERUM 4.5 MMOL/L (3.5-5.1); SODIUM LEVEL 139 MMOL/L (136-145); TOTAL PROTEIN 6.3 G/DL (5.7-8.2); TRIGLYCERIDES LEVEL 120 MG/DL (<150); VITAMIN B12 LEVEL 1838 PG/ML (211-911)
[2023-04-24 16:05] LABS: HEMOGLOBIN A1c 5.9 % (4.0-6.0)
== END ==
LOC: M PLAIMG 10:47
PROVIDERS: ATTEND Internal Medicine Hematology
DX: M95.2 Other acquired deformity of head (principal); N18.31 Chronic kidney disease, stage 3a; Z79.899 Other long term (current) drug therapy

== ENCOUNTER 2023-05-27 14:49 | Observation (INO) | payer MEDICARE, MEDICAID ==
[~2023-05-27] VITALS: Ht 160 cm; Wt 87.9 kg
[2023-05-27 21:19] LABS: APPEARANCE, URINE CLEAR (CLEAR); BACTERIA, URINE AUTO NEGATIVE (NEGATIVE); BILIRUBIN, URINE AUTO NEGATIVE (NEGATIVE); BLOOD, URINE BLOOD NEGATIVE (NEGATIVE); COLOR, URINE STRAW (YELLOW); GLUCOSE, URINE (UA) AUTO NEGATIVE (NEGATIVE); KETONE, URINE AUTO NEGATIVE (NEGATIVE); LEUKOCYTE ESTERASE, URINE AUTO NEGATIVE (NEGATIVE); NITRITE, URINE AUTO NEGATIVE (NEGATIVE); PROTEIN, URINE AUTO NEGATIVE (NEGATIVE); RBC, URINE AUTO 0 /HPF (0-3); SPECIFIC GRAVITY URINE AUTO 1.005 (1.002-1.035); SQUAMOUS EPITHELIAL CELL UR AU 1 /HPF (0-6); UROBILINOGEN, URINE AUTO 0.2 mg/dL (0.0-2.0); WBC, URINE AUTO 0 /HPF (0-3)
[2023-05-27 21:39] LABS: LIPASE 29 U/L (12-53)
[2023-05-27 21:41] LABS: ALBUMIN 4.2 G/DL (3.2-5.2); ALKALINE PHOSPHATASE 54 U/L (46-116); ALT/SGPT 36 U/L (7.0-40); AST/SGOT 12 U/L (<34); BILIRUBIN,DIRECT 0.2 MG/DL (<0.4); BILIRUBIN,TOTAL 0.6 MG/DL (0.3-1.2); BLOOD UREA NITROGEN 18 MG/DL (9-23); CALCIUM LEVEL 9.2 MG/DL (8.3-10.6); CARBON DIOXIDE LEVEL 35 MMOL/L (20-31); CHLORIDE LEVEL 105 MMOL/L (98-107); CREATININE FOR GFR 0.94 MG/DL (0.55-1.30); GLOMERULAR FILTRATION RATE > 60.0 (>45); GLUCOSE, FASTING 74 MG/DL (74-106); POTASSIUM SERUM 4.6 MMOL/L (3.5-5.1); SODIUM LEVEL 142 MMOL/L (136-145)
[2023-05-27 21:58] LABS: RSV AMPLIFICATION NEGATIVE (NEGATIVE)
[2023-05-27 22:38] LABS: BASO % 0.1 % (0.0-1.0); EOS % 0.4 % (0.0-3.0); HEMATOCRIT 48.7 % (36.0-47.0); HEMOGLOBIN 16.3 g/dl (12.0-15.5); LYMPH # 1.8 10^3/uL (1.5-5.0); LYMPH % 16.2 % (24.0-44.0); MEAN CORPUSCULAR HEMOGLOBIN 31.5 pg (27.0-33.0); MEAN CORPUSCULAR HGB CONC 33.5 g/dl (32.0-36.5); MONO # 0.7 10^3/uL (0.0-0.8); MONO % 6.1 % (2.0-8.0); NEUTROPHILS # 8.7 10^3/uL (1.5-8.5); NEUTROPHILS % 76.1 % (36.0-66.0); PLATELET COUNT, AUTOMATED 163 10^3/uL (150-450); RED BLOOD COUNT 5.18 10^6/uL (4.00-5.40); WHITE BLOOD COUNT 11.4 10^3/uL (4.0-10.0)
[2023-05-28] MEDS ORDERED: SUCR1TAB56 PO (03:01)
[2023-05-28] MEDS ORDERED: MORP30TASA PO (03:01)
[2023-05-28] MEDS ORDERED: ATIV1TAB7 PO (03:01)
[2023-05-28] MEDS ORDERED: OXYC20TA2 PO (03:01)
[2023-05-28] MEDS ORDERED: PRED10TA2 PO (03:01)
[2023-05-28] MEDS ORDERED: MIRA1POW3 PO (03:01)
[2023-05-28] MEDS ORDERED: PRED5TA PO (03:01)
[2023-05-28] MEDS ORDERED: ONDA-196 PO (03:01)
[2023-05-28] MEDS ORDERED: SPIR1AER INH (03:01)
[2023-05-28] MEDS ORDERED: ATOR40TA75 PO (03:01)
[2023-05-28] MEDS ORDERED: [UNRECOGNIZED DRUG - CODE] PO (03:01)
[2023-05-28] MEDS ORDERED: METO10TA2 PO (03:01)
[2023-05-28] MEDS ORDERED: HOME MED LIST COMPLETE! XX SCH (03:05)
[2023-05-28] MEDS ORDERED: MIRALAX *UNIT DOSE* 17GM PACKET PO PRN (05:35)
[2023-05-28] MEDS ORDERED: ALBUTEROL 90 MCG/ACT 8GM HFA INHALER INH PRN (05:35)
[2023-05-28] MEDS ORDERED: FIBER-CON 625 MG TAB PO PRN (05:35)
[2023-05-28] MEDS ORDERED: IPRATROPIUM 0.5MG/ALBUTEROL 2.5MG INH SOL UD 3ML (DUONEB) INH PRN (05:35)
[2023-05-28] MEDS ORDERED: LORazepam 2 MG TAB PO PRN (05:35)
[2023-05-28] MEDS: oxyCODONE 5MG TAB PO SCH ×3 (07:06→18:56)
[2023-05-28] MEDS: LEVOTHYROXINE 150MCG TABLET (0.15MG) PO SCH (07:58)
[2023-05-28] MEDS ORDERED: ENOXAPARIN 40MG/0.4ML SYRINGE (J1650 PER 10MG) SC SCH (09:00)
[2023-05-28] MEDS: TIOTROPIUM INHALER/CAPSULE (SPIRIVA) INH SCH (09:22)
[2023-05-28] MEDS: ADVAIR HFA 230/21MCG INHALER INH SCH ×2 (09:23→21:45)
[2023-05-28] MEDS: predniSONE 10MG TAB PO SCH (10:02)
[2023-05-28] MEDS: CYANOCOBALAMIN 500 MCG TAB PO SCH (10:03)
[2023-05-28] MEDS: ATORVASTATIN 20 MG TAB PO SCH (10:03)
[2023-05-28] MEDS: predniSONE 5 MG TAB PO SCH (10:03)
[2023-05-28] MEDS: SENNA 8.6 MG TAB (SENOKOT) PO SCH ×2 (10:04→21:35)
[2023-05-28] MEDS: GABAPENTIN 300 MG CAP PO SCH ×3 (10:04→21:34)
[2023-05-28] MEDS: DOCUSATE SODIUM 100MG CAPSULE PO SCH (10:04)
[2023-05-28] MEDS: OMEPRAZOLE 20MG CAP PO SCH (10:04)
[2023-05-28] MEDS: SUCRALFATE 1 GM TAB PO SCH ×2 (10:05→21:31)
[2023-05-28] MEDS: hydroCHLOROthiazide 12.5 MG CAPSULE PO SCH (10:05)
[2023-05-28] MEDS: FUROSEMIDE 20 MG TAB PO SCH (10:05)
[2023-05-28] MEDS: amLODIPine 5 MG TAB PO SCH (10:05)
[2023-05-28] MEDS: VALSARTAN 80 MG TAB (DIOVAN) PO SCH (10:06)
[2023-05-28] MEDS: NICOTINE 21MG/24HR 1 EA TRANSDERMAL TOP SCH (10:06)
[2023-05-28] MEDS: MIRALAX *UNIT DOSE* 17GM PACKET PO SCH (10:07)
[2023-05-28] MEDS: FLUTICASONE PROP 0.05% NASAL SPRAY 16 GM (FLONASE) NARES SCH ×2 (11:15→21:31)
[2023-05-28] MEDS: METOCLOPRAMIDE 10MG TAB PO SCH ×2 (11:15→21:39)
[2023-05-28] MEDS: MORPHINE 30 MG SA TAB PO SCH ×2 (11:21→21:33)
[2023-05-28 18:45] LABS: CK-MB VALUE MASS < 1.0 NG/ML (<3.6)
[2023-05-28 18:50] LABS: CPK CREATINE PHOSPHOKINASE 35 U/L (34-145); MB/CK RELATIVE INDEX 2.85 (< OR =4)
[2023-05-28] MEDS ORDERED: AMITRIPTYLINE 25MG TABLET PO SCH (21:00)
[2023-05-28 22:51] LABS: CK-MB VALUE MASS < 1.0 NG/ML (<3.6)
[2023-05-28 22:53] LABS: CPK CREATINE PHOSPHOKINASE 54 U/L (34-145); MB/CK RELATIVE INDEX 1.85 (< OR =4)
[2023-05-29] MEDS: oxyCODONE 5MG TAB PO SCH ×3 (00:22→13:01)
[2023-05-29] MEDS: LEVOTHYROXINE 150MCG TABLET (0.15MG) PO SCH (06:51)
[2023-05-29] MEDS: ADVAIR HFA 230/21MCG INHALER INH SCH ×2 (08:07→21:40)
[2023-05-29] MEDS: TIOTROPIUM INHALER/CAPSULE (SPIRIVA) INH SCH (08:07)
[2023-05-29] MEDS ORDERED: VARIBAR NECTAR 40% w/v 240ML SUSP BTL As Ordered ONE (09:51)
[2023-05-29] MEDS ORDERED: E-Z-PAQUE 96% w/w SUSP 176GM BTL As Ordered ONE (09:51)
[2023-05-29] MEDS ORDERED: VARIBAR PUDDING 40% w/v 230ML TUBE As Ordered ONE (09:51)
[2023-05-29] MEDS ORDERED: BARIUM SULFATE 700 MG TABLET (E-Z-DISK) As Ordered ONE (09:51)
[2023-05-29] MEDS: OMEPRAZOLE 20MG CAP PO SCH (10:14)
[2023-05-29] MEDS: NICOTINE 21MG/24HR 1 EA TRANSDERMAL TOP SCH (10:14)
[2023-05-29] MEDS: SUCRALFATE 1 GM TAB PO SCH (10:14)
[2023-05-29] MEDS: DOCUSATE SODIUM 100MG CAPSULE PO SCH (10:14)
[2023-05-29] MEDS: GABAPENTIN 300 MG CAP PO SCH (10:14)
[2023-05-29] MEDS: FUROSEMIDE 20 MG TAB PO SCH (10:15)
[2023-05-29] MEDS: SENNA 8.6 MG TAB (SENOKOT) PO SCH (10:15)
[2023-05-29] MEDS: predniSONE 10MG TAB PO SCH (10:16)
[2023-05-29] MEDS: MORPHINE 30 MG SA TAB PO SCH (10:16)
[2023-05-29 10:17] VITALS: BP 149/69
[2023-05-29] MEDS: amLODIPine 5 MG TAB PO SCH (10:17)
[2023-05-29] MEDS: VALSARTAN 80 MG TAB (DIOVAN) PO SCH (10:17)
[2023-05-29] MEDS: CYANOCOBALAMIN 500 MCG TAB PO SCH (10:18)
[2023-05-29] MEDS: ATORVASTATIN 20 MG TAB PO SCH (10:18)
[2023-05-29] MEDS: MIRALAX *UNIT DOSE* 17GM PACKET PO SCH (10:18)
[2023-05-29] MEDS: hydroCHLOROthiazide 12.5 MG CAPSULE PO SCH (10:18)
[2023-05-29] MEDS: predniSONE 5 MG TAB PO SCH (10:18)
[2023-05-29] MEDS: METOCLOPRAMIDE 10MG TAB PO SCH (10:23)
[2023-05-29] MEDS: FLUTICASONE PROP 0.05% NASAL SPRAY 16 GM (FLONASE) NARES SCH (10:23)
[2023-05-29 14:35] VITALS: BP 124/82; TEMP 97; O2SAT 93
[2023-05-30] MEDS: ADVAIR HFA 230/21MCG INHALER INH SCH (21:47)
== END 2023-05-29 14:35 | disposition home or self-care (01) ==
LOC: M ED 14:49 → M ED INP 05-28 00:41
PROVIDERS: ADMIT Internal Medicine; ATTEND Internal Medicine
DX: T76.31XA Adult psychological abuse, suspected, initial encounter (principal); Z63.79 Other stressful life events affecting family and household; F25.9 Schizoaffective disorder, unspecified; R13.10 Dysphagia, unspecified; J44.9 Chronic obstructive pulmonary disease, unspecified; I27.81 Cor pulmonale (chronic); M35.3 Polymyalgia rheumatica; F41.1 Generalized anxiety disorder; M54.10 Radiculopathy, site unspecified; M54.31 Sciatica, right side; M54.32 Sciatica, left side; M54.50 Low back pain, unspecified; M54.2 Cervicalgia; G89.29 Other chronic pain; E03.9 Hypothyroidism, unspecified; I13.0 Hypertensive heart and chronic kidney disease with heart failure and stage 1 through stage 4 chronic kidney disease, or unspecified chronic kidney disease; K59.00 Constipation, unspecified; K21.9 Gastro-esophageal reflux disease without esophagitis; E78.5 Hyperlipidemia, unspecified; I50.30 Unspecified diastolic (congestive) heart failure; G47.33 Obstructive sleep apnea (adult) (pediatric); N18.30 Chronic kidney disease, stage 3 unspecified; N39.41 Urge incontinence; E55.9 Vitamin D deficiency, unspecified; F11.20 Opioid dependence, uncomplicated; Z91.81 History of falling; F17.200 Nicotine dependence, unspecified, uncomplicated; Z88.1 Allergy status to other antibiotic agents; Z88.8 Allergy status to other drugs, medicaments and biological substances; Z88.5 Allergy status to narcotic agent; Z79.899 Other long term (current) drug therapy; Z79.82 Long term (current) use of aspirin; Z79.890 Hormone replacement therapy; Z79.52 Long term (current) use of systemic steroids; Z20.822 Contact with and (suspected) exposure to COVID-19
CPT/HCPCS: 36415; 71046; 74230; 80048; 80076; 81001; 82550; 82553; 83690; 83880; 84484; 85025; 87631; 92610; 92611; 93005; 94640; 97165; 99285; G0378; J7512

== ENCOUNTER → 2023-07-17 | Outpatient (CLI) | payer MEDICARE, MEDICAID ==
[~2023-07-17] VITALS: Ht 160 cm; Wt 88.9 kg
[~2023-07-17] MED LIST changes: -ASPI-161 PO; +ASPI-615 PO; -KLON1TAB PO; +KLON1TAB13 PO; +METO10TA2 PO; -MIRA1POW3 PO; +MIRA33506 PO; +MORP30TASA PO; +ONDA-196 PO; +SPIR1AER INH; +SUCR1TAB56 PO; +XTAM9CAP PO; +[UNRECOGNIZED DRUG - CODE] PO
[2023-07-17 10:29] VITALS: BP 145/93; O2SAT 95
== END ==
LOC: M PAL 10:05
PROVIDERS: ATTEND Nurse Practitioner Adult Health
DX: G89.4 Chronic pain syndrome (principal); G62.9 Polyneuropathy, unspecified; J44.89 Other specified chronic obstructive pulmonary disease; G47.33 Obstructive sleep apnea (adult) (pediatric); N18.30 Chronic kidney disease, stage 3 unspecified; F25.9 Schizoaffective disorder, unspecified; F41.9 Anxiety disorder, unspecified; R11.0 Nausea; R63.0 Anorexia; R53.83 Other fatigue; Z63.8 Other specified problems related to primary support group; F17.210 Nicotine dependence, cigarettes, uncomplicated; Z66 Do not resuscitate; Z74.1 Need for assistance with personal care; Z51.5 Encounter for palliative care; Z80.1 Family history of malignant neoplasm of trachea, bronchus and lung; Z80.3 Family history of malignant neoplasm of breast; Z80.7 Family history of other malignant neoplasms of lymphoid, hematopoietic and related tissues; Z80.8 Family history of malignant neoplasm of other organs or systems; Z87.442 Personal history of urinary calculi; Z90.49 Acquired absence of other specified parts of digestive tract; Z90.710 Acquired absence of both cervix and uterus; Z88.1 Allergy status to other antibiotic agents; Z88.8 Allergy status to other drugs, medicaments and biological substances; Z88.6 Allergy status to analgesic agent; Z79.51 Long term (current) use of inhaled steroids; Z79.52 Long term (current) use of systemic steroids; Z79.82 Long term (current) use of aspirin; Z79.891 Long term (current) use of opiate analgesic; Z79.890 Hormone replacement therapy; Z79.899 Other long term (current) drug therapy

== ENCOUNTER 2023-07-21 08:51 | Inpatient (IN) | payer MEDICARE, MEDICAID ==
[~2023-07-21] VITALS: Ht 160 cm; Wt 87.0 kg
[2023-07-21 13:56] LABS: VENOUS BASE EXCESS 3.7 (-2.0-2.0); VENOUS HCO3 28.4 MMOL/L (23.0-27.0); VENOUS O2 SATURATION 97.8 % (60.0-80.0); VENOUS PARTIAL PRESSURE CO2 42.9 mmHg (38.0-50.0); VENOUS PARTIAL PRESSURE O2 102.2 mmHg (30.0-50.0); VENOUS PH 7.439 UNITS (7.330-7.430); VENOUS STANDARD HCO3 27.8 MMOL/L; VENOUS TOTAL CO2 29.7 MMOL/L (24.0-28.0)
[2023-07-21 14:05] VITALS: O2SAT 97
[2023-07-21] MEDS: IPRATROPIUM 0.5MG/ALBUTEROL 2.5MG INH SOL UD 3ML (DUONEB) NEB PRN (14:05)
[2023-07-21 14:09] VITALS: BP 175/102
[2023-07-21] MEDS: methylPREDNISolone 125MG 2ML VIAL IV ONE (14:10)
[2023-07-21] MEDS: oxyCODONE 10 MG CR TAB PO ONE (14:10)
[2023-07-21 14:23] LABS: CK-MB VALUE MASS < 1.0 NG/ML (<3.6)
[2023-07-21 14:25] LABS: ALBUMIN 3.4 G/DL (3.2-5.2); ALKALINE PHOSPHATASE 42 U/L (46-116); ALT/SGPT 24 U/L (7.0-40); AST/SGOT 13 U/L (<34); BASO # 0.1 10^3/uL (0.0-0.2); BILIRUBIN,DIRECT 0.2 MG/DL (<0.4); BILIRUBIN,TOTAL 0.6 MG/DL (0.3-1.2); BLOOD UREA NITROGEN 12 MG/DL (9-23); CALCIUM LEVEL 8.1 MG/DL (8.3-10.6); CARBON DIOXIDE LEVEL 27 MMOL/L (20-31); CHLORIDE LEVEL 112 MMOL/L (98-107); CPK CREATINE PHOSPHOKINASE 35 U/L (34-145); CREATININE FOR GFR 1.09 MG/DL (0.55-1.30); EOS # 0.2 10^3/uL (0.0-0.5); EOS % 2.2 % (0.0-3.0); GLOMERULAR FILTRATION RATE 53.6 (>45); GLUCOSE, FASTING 82 MG/DL (74-106); HEMOGLOBIN 14.7 g/dl (12.0-15.5); LYMPH # 2.5 10^3/uL (1.5-5.0); LYMPH % 27.5 % (24.0-44.0); MB/CK RELATIVE INDEX 2.85 (< OR =4); MEAN CORPUSCULAR HEMOGLOBIN 31.8 pg (27.0-33.0); MEAN CORPUSCULAR HGB CONC 32.7 g/dl (32.0-36.5); MEAN CORPUSCULAR VOLUME 97.4 fl (80.0-96.0); MONO # 0.7 10^3/uL (0.0-0.8); NEUTROPHILS # 5.5 10^3/uL (1.5-8.5); NEUTROPHILS % 60.5 % (36.0-66.0); PLATELET COUNT, AUTOMATED 164 10^3/uL (150-450); POTASSIUM SERUM 3.8 MMOL/L (3.5-5.1); RED BLOOD COUNT 4.62 10^6/uL (4.00-5.40); SODIUM LEVEL 142 MMOL/L (136-145)
[2023-07-21 14:32] LABS: PROCALCITONIN <0.04 ng/ml
[2023-07-21] MEDS ORDERED: amLODIPine 5 MG TAB PO ONE (16:20)
[2023-07-21] MEDS: hydroCHLOROthiazide 12.5 MG CAPSULE PO SCH (17:59)
[2023-07-21] MEDS: VALSARTAN 80 MG TAB (DIOVAN) PO SCH (17:59)
[2023-07-21 18:30] VITALS: BP 144/72; TEMP 97.4; O2SAT 96
[2023-07-21] MEDS ORDERED: VITA1CAP25 PO (18:37)
[2023-07-21] MEDS ORDERED: LORA2TAB14 PO (18:37)
[2023-07-21] MEDS ORDERED: XTAM9CAP PO (18:43)
[2023-07-21] MEDS ORDERED: HOME MED LIST COMPLETE! XX SCH (18:55)
[2023-07-21] MEDS ORDERED: ACETAMINOPHEN 650MG ER TAB (TYLENOL ARTHRITIS) PO PRN (19:05)
[2023-07-21] MEDS ORDERED: DOCUSATE SODIUM 100MG CAPSULE PO PRN (19:05)
[2023-07-21] MEDS ORDERED: ONDANSETRON 4MG TAB PO PRN (19:05)
[2023-07-21] MEDS ORDERED: FIBER-CON 625 MG TAB PO PRN (19:05)
[2023-07-21] MEDS ORDERED: MIRALAX *UNIT DOSE* 17GM PACKET PO PRN (19:05)
[2023-07-21 20:00] VITALS: BP 136/72; TEMP 98; O2SAT 96
[2023-07-21] MEDS: ADVAIR HFA 230/21MCG INHALER INH SCH (20:15)
[2023-07-21] MEDS: IPRATROPIUM 0.5MG/ALBUTEROL 2.5MG INH SOL UD 3ML (DUONEB) NEB SCH (20:15)
[2023-07-21] MEDS: METOCLOPRAMIDE 10MG TAB PO SCH (20:35)
[2023-07-21] MEDS: GABAPENTIN 300 MG CAP PO SCH (20:35)
[2023-07-21] MEDS: OMEPRAZOLE 20MG CAP PO SCH (20:35)
[2023-07-21] MEDS: SUCRALFATE 1 GM TAB PO SCH (20:35)
[2023-07-21] MEDS: AMITRIPTYLINE 25MG TABLET PO SCH (20:35)
[2023-07-21] MEDS: LORazepam 2 MG TAB PO PRN (20:36)
[2023-07-22] MEDS: oxyCODONE 5MG TAB PO SCH (00:53)
[2023-07-22 00:54] VITALS: BP 111/67; TEMP 97.5; O2SAT 92
[2023-07-22 05:47] LABS: HEMATOCRIT 44.6 % (36.0-47.0); HEMOGLOBIN 14.9 g/dl (12.0-15.5); MEAN CORPUSCULAR HEMOGLOBIN 32.2 pg (27.0-33.0); MEAN CORPUSCULAR HGB CONC 33.4 g/dl (32.0-36.5); MEAN CORPUSCULAR VOLUME 96.3 fl (80.0-96.0); PLATELET COUNT, AUTOMATED 166 10^3/uL (150-450); RED BLOOD COUNT 4.63 10^6/uL (4.00-5.40); WHITE BLOOD COUNT 8.6 10^3/uL (4.0-10.0)
[2023-07-22 06:11] LABS: CALCIUM LEVEL 8.3 MG/DL (8.3-10.6); CREATININE FOR GFR 0.99 MG/DL (0.55-1.30); GLOMERULAR FILTRATION RATE 59.9 (>45); MAGNESIUM LEVEL 2.1 MG/DL (1.8-2.4); PHOSPHORUS LEVEL 3.8 MG/DL (2.4-5.1); POTASSIUM SERUM 3.9 MMOL/L (3.5-5.1)
[2023-07-22] MEDS: LEVOTHYROXINE 150MCG TABLET (0.15MG) PO SCH (06:13)
[2023-07-22 07:42] VITALS: BP 108/66; TEMP 96.7; O2SAT 93
[2023-07-22] MEDS: ASPIRIN 81MG ENTERIC TABLET PO SCH (08:07)
[2023-07-22] MEDS: FUROSEMIDE 20 MG TAB PO SCH (08:08)
[2023-07-22] MEDS: predniSONE 20 MG TAB PO SCH (08:10)
[2023-07-22] MEDS: ENOXAPARIN 40MG/0.4ML SYRINGE (J1650 PER 10MG) SC SCH (08:11)
[2023-07-22] MEDS ORDERED: IPRA0.00 INH (10:28)
[2023-07-22] MEDS ORDERED: ALBU2.5V10 INH (10:28)
[2023-07-22] MEDS ORDERED: PRED20TA PO (10:28)
[2023-07-22] MEDS ORDERED: PRED10TA2 PO ×2 (10:28→10:50)
[2023-07-22] MEDS ORDERED: ALBU8.5H INH (10:28)
== END 2023-07-22 11:48 | disposition home or self-care (01) | DRG 191 ==
LOC: EDBD 08:51 → M ED 08:51 → M ED INP 16:20 → ENRESERV 16:59 → M PCU 18:31
PROVIDERS: ADMIT Internal Medicine; ATTEND Internal Medicine
DX: J44.1 Chronic obstructive pulmonary disease with (acute) exacerbation (principal); I50.32 Chronic diastolic (congestive) heart failure; I13.0 Hypertensive heart and chronic kidney disease with heart failure and stage 1 through stage 4 chronic kidney disease, or unspecified chronic kidney disease; Z66 Do not resuscitate; F25.9 Schizoaffective disorder, unspecified; E03.9 Hypothyroidism, unspecified; I27.81 Cor pulmonale (chronic); E78.5 Hyperlipidemia, unspecified; N18.31 Chronic kidney disease, stage 3a; F32.A Depression, unspecified; G47.33 Obstructive sleep apnea (adult) (pediatric); G89.29 Other chronic pain; M35.3 Polymyalgia rheumatica; F17.210 Nicotine dependence, cigarettes, uncomplicated; I16.0 Hypertensive urgency; K21.9 Gastro-esophageal reflux disease without esophagitis; K59.00 Constipation, unspecified; Z79.82 Long term (current) use of aspirin; Z79.890 Hormone replacement therapy; Z79.52 Long term (current) use of systemic steroids; Z79.899 Other long term (current) drug therapy; Z88.1 Allergy status to other antibiotic agents; Z88.8 Allergy status to other drugs, medicaments and biological substances; Z11.52 Encounter for screening for COVID-19